=== PATIENT | male | born 1970 | race Caucasian/White ===

== ENCOUNTER 2017-03-16 10:36 | Inpatient (IN) ==
--- NOTE | 2017-03-16 10:59 | Emergency Department Note ---
Disposition Clinical Impression: Tenosynovitis Disposition: Admitted As Inpatient Condition: Good Extremity Problem HPI - General Chief complaint: ED Extremity Problem,Nontraumatic Stated complaint: left hand swelling Time Seen by Provider: 03/16/17 10:54 Source: patient Mode of arrival: private vehicle Limitations: no limitations Nursing Notes Reviewed: Yes Vital Signs Reviewed: Yes - History of Present Illness HPI Narrative: 47-year-old male history of diabetes who presents to the ER with a chief complaint of left hand swelling. Patient reports that he fell one week ago landing on his left shoulder. He states that the pain that resolved but he started noticing pain in his left hand. He states that it started to swell and he was having pain with movement. 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 He denies fevers nausea vomiting diarrhea at home. He is right-hand dominant. Does have pain with any type of motion of the hand. No other complaints. Pt Subjective Complaint: extremity pain, extremity swelling Onset (ago): day(s) Consistency: constant Injury Location: left, upper extremity Pain Scale: 8 Quality: aching Radiation: none Improves with: nothing Worsens with: nothing Associated symptoms: Denies: chest pain, shortness of breath, abdominal pain, fever - Related Data Home Medications Medication Instructions Recorded Confirmed Insulin NPH, HUMAN [HumuLIN N] 30 unit SQ BID 01/04/16 03/16/17 Metformin HCl [Metformin HCl ER] 1,000 mg PO BID 01/04/16 03/16/17 Metoprolol XL (24 HR) Succ [Toprol 75 mg PO DAILY 03/06/16 03/16/17 Xl] Amitriptyline [Elavil] 25 mg PO HS 03/16/17 03/16/17 Meloxicam [Mobic] 7.5 mg PO DAILY 03/16/17 03/16/17 Previous Rx's Medication Instructions Recorded Atorvastatin [Lipitor] 40 mg PO HS #30 tablet 11/10/15 Clopidogrel [Plavix] 75 mg PO DAILY #30 tablet 11/10/15 Furosemide [Lasix] 40 mg PO DAILY #30 tablet 11/10/15 Lisinopril [Zestril] 10 mg PO DAILY #30 tablet 11/10/15 Allergies Allergy/AdvReac Type Severity Reaction Status Date / Time No Known Allergies Allergy Verified 03/16/17 10:39 All systems ED: reviewed and negative except as stated. Constitutional: Denies: fever Respiratory: Denies: cough Gastrointestinal: Denies: vomiting, diarrhea Integumentary: Denies: rash Past Medical History - Past Medical History Attestation: Yes The following information was validated with the patient. Source: patient Medical history: Reports: CHF, COPD, coronary artery disease, diabetes, GERD, hyperlipidemia, myocardial infarction Surgical history: Reports: angioplasty/stent Psychiatric history: Reports: no psych history - Social History Smoking Status: Former smoker Smokeless Tobacco Status: No Alcohol use: Reports: none Drug use: Reports: none Physical Exam - General Limitations: no limitations General appearance: alert, in no apparent distress - Head Head exam: atraumatic, normocephalic, normal inspection - Eye Eye exam: Present: normal appearance, EOMI - ENT ENT exam: normal exam - Neck Neck exam: Present: normal inspection - Chest Chest inspection: Present: normal inspection, symmetric chest wall rise - Respiratory Respiratory exam: Present: normal lung sounds bilaterally - Cardiovascular Cardiovascular exam: Present: regular rate, normal rhythm, normal heart sounds - Abdominal Exam Abdominal exam: Present: soft, Non-Tender. Absent: tenderness - Extremities Exam Extremities exam: Present: normal inspection, full ROM - Expanded Upper Extremity Exam Shoulder exam: Present: normal inspection, full ROM Arm exam: Present: normal inspection, full ROM Elbow exam: Present: normal inspection, full ROM Forearm/Wrist exam: Present: normal inspection, full ROM Hand exam: Present: swelling (There is swelling to the dorsum of the left hand as well as into the digits.), abrasion, other (Diminished range of motion secondary to swelling with flexion and extension of the digits). Absent: ecchymosis, deformity - Expanded Lower Extremity Exam Hip/Pelvis exam: Present: normal inspection, full ROM Upper leg exam: Present: normal inspection, full ROM Knee exam: Present: normal inspection, full ROM Lower leg exam: Present: normal inspection, full ROM Ankle exam: Present: normal inspection, full ROM Foot/toe exam: Present: normal inspection, full ROM Neurovascular/Tendon exam: Absent: motor deficit, sensory deficit Course Course Narrative: Patient seen and examined. Vital signs reviewed. We will check a left hand x- ray as well as basic labs. - Reevaluation(s) Reevaluation #1: Discussed results of imaging labwork with the patient and family. They are in agreement with the plan of being admitted to the hospital. - Consultations Consultation #1: I discussed this case with the on-call orthopedic surgeon. They agree with admitting the patient to the hospital for IV antibiotics and hand consultation in the morning. They request to admit the patient to the hospitalist service. Vital Signs Temperature 98.1 F 03/16/17 10:37 Pulse Rate 115 03/16/17 10:37 Respiratory Rate 16 03/16/17 10:37 Blood Pressure 157/84 03/16/17 10:37 O2 Sat by Pulse Oximetry 95 03/16/17 10:37 Temperature 98.1 F 03/16/17 10:37 Pulse Rate 82 03/16/17 14:00 Respiratory Rate 16 03/16/17 15:16 Blood Pressure 146/84 03/16/17 15:16 O2 Sat by Pulse Oximetry 95 03/16/17 14:00 Oxygen Delivery Oxygen Delivery Room Air Extremity Problem, Nontraumati - MDM Narrative Medical decision making narrative: 47-year-old male presents to the ER for left hand swelling. Reports he fell a week ago and started having pain a few days later. 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 He is unsure of any foreign bodies in his hand. CT scan here shows soft tissue swelling but no abscess collection. He has a slightly elevated ESR and CRP. He holds his hand in slight flexion with pain with passive extension as well as pain over the flexor surfaces. This case was discussed with orthopedic surgery. We will admit to the hospitalist service give him IV vancomycin and Cipro and he will be evaluated by the hand surgeon in the morning. - Lab Data Lab results reviewed: Yes I reviewed the patient's lab results. Result diagrams: 03/16/17 12:17 03/16/17 12:17 Lab Results 03/16/17 03/16/17 03/16/17 Range/Units 12:17 12:17 12:17 WBC 8.5 (4.3-11.1) K/mcL RBC 4.62 (4.19-5.50) M/mcL Hgb 13.9 (12.9-16.9) g/dL Hct 40.9 (37.5-50.1) % MCV 88.5 (83.0-100.0) fL MCH 30.1 (28.0-33.3) pg MCHC 34.0 (31.6-35.5) g/dL RDW 12.5 (11.5-14.5) % Plt Count 187 (140-400) K/mcL MPV 11.7 (9.4-12.4) fL Immature Gran % 0.4 (0-4) % Seg Neutrophils % 74.2 % Lymphocytes % 15.6 % Monocytes % 7.7 % Eosinophils % 1.6 % Basophils % 0.5 % Neutrophils # 6.3 (1.6-8.9) K/mcL Lymphocytes # 1.3 (0.6-4.6) K/mcL Monocytes # 0.7 (0.0-1.3) K/mcL Eosinophils # 0.1 (0.0-0.6) K/mcL Basophils # 0.0 (0.0-0.2) K/mcL ESR 22 H (0-10) mm/hr Sodium 134 L (136-145) mEq/L Potassium 5.2 H (3.5-4.5) mEq/L Chloride 99 (98-109) mEq/L Carbon Dioxide 28 (19-29) mEq/L BUN 22 (8-26) mg/dL Creatinine 1.19 (0.72-1.25) mg/dL Est GFR ( Amer) > 60 (> 60) Est GFR (Non-Af Amer) > 60 (> 60) BUN/Creatinine Ratio 18 (6-26) Glucose 599 H* (70-99) mg/dL Calculated Osmolality 309 H (280-300) Calcium 8.9 (8.6-10.8) mg/dL C-Reactive Protein 33 H (Less than 5) mg/L - Radiology Data Radiology results reviewed: Yes I reviewed the patient's radiology results. Hand X-Ray 03/16/17 10:40 IMPRESSION: Several radiopaque foreign bodies in the soft tissues adjacent to the distal ulna, middle phalanx of the 4th digit and distal phalanx of the 3rd digit best visualized on the oblique view. D/ / Jef Rodriguez MD / Jef Rodriguez MD Interpreting Provider: Jef Rodriguez MD Upper Extremity CT 03/16/17 11:37 IMPRESSION: 1. No acute osseous abnormality identified. 2. Nonspecific subcutaneous edema within the soft tissues of the distal forearm along its ulnar aspect and extending into the dorsal hand. Recommend clinical correlation for cellulitis. No organized fluid collection identified. 3. Radiopaque foreign bodies within the soft tissues of the distal forearm along its ulnar aspect and within the distal soft tissues of both the 3rd and 4th digits. D/ / Silvano Cotter MD / Silvano Cotter MD Interpreting Provider: Silvano Cotter MD Attestation Statement - Attestation Attestation: I, Keith Winn, examined this patient and my medical decision-making was reviewed with the DIRECTOR OF CODING/PA/Advanced Practice Nurse/Resident Physician. I agree with the documented findings, disposition and treatment plan as described except to the extent set forth below. 47-year-old male presents to the emergency department with left hand swelling and pain. 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 Over the past 2-3 days patient's pain in his left hand has become much worse. Patient states he has difficulty with making a fist due to pain. Denies fever, chills, nausea, vomiting. No other injuries to left hand. Denies the past. X- ray of the hand reveals foreign bodies in the third and fourth digits as well as the distal ulna area however patient does not have pain in these areas. Patient has elevation of his ESR and CRP. On physical exam he has pain with passive extension of his second through fifth digits as well as tenderness to palpation of the palmar area. CT of the hand did not reveal evidence of acute abscess. Patient will be admitted to the hospital for further care and evaluation and IV antibiotics. Resident spoke with Dr. Arora Who agreed with plan of action for admission of the hospital and see the hand specialist in the morning
[2017-03-16] MEDS ORDERED: *HR* Morphine 2 MG/ML SYRINGE IVP ONE (11:36)
[2017-03-16 12:30] LABS: Basophils % 0.5 %; Eosinophils # 0.1 K/mcL (0.0-0.6); Eosinophils % 1.6 %; Hematocrit 40.9 % (37.5-50.1); Hemoglobin 13.9 g/dL (12.9-16.9); Immature Granulocytes % 0.4 % (0-4); Lymphocytes # 1.3 K/mcL (0.6-4.6); Lymphocytes % 15.6 %; Mean Corpuscular Hemoglobin 30.1 pg (28.0-33.3); Mean Corpuscular Volume 88.5 fL (83.0-100.0); Mean Platelet Volume 11.7 fL (9.4-12.4); Monocytes # 0.7 K/mcL (0.0-1.3); Monocytes % 7.7 %; Neutrophils # 6.3 K/mcL (1.6-8.9); Platelet Count 187 K/mcL (140-400); Red Blood Count 4.62 M/mcL (4.19-5.50); Red Cell Distribution Width 12.5 % (11.5-14.5); Segmented Neutrophils % 74.2 %
[2017-03-16 12:44] LABS: BUN/Creatinine Ratio 18 (6-26); Blood Urea Nitrogen 22 mg/dL (8-26); C-Reactive Protein 33 mg/L (Less than 5); Calcium 8.9 mg/dL (8.6-10.8); Carbon Dioxide 28 mEq/L (19-29); Chloride 99 mEq/L (98-109); Osmolality,Calculated 309 (280-300); Potassium 5.2 mEq/L (3.5-4.5); Sodium 134 mEq/L (136-145); eGFR For African Americans > 60 (> 60); eGFR For Non-African Americans > 60 (> 60)
[2017-03-16 12:45] LABS: Glucose 599 mg/dL (70-99)
[2017-03-16] MEDS ORDERED: Vancomycin 1,750 MG in D5% in Water 500 ML IVPB ONE (13:51)
[2017-03-16] MEDS ORDERED: Naloxone 0.4 MG/ML INJ IVP PRN (17:35)
[2017-03-16] MEDS ORDERED: Acetaminophen 325 MG TABLET PO PRN (17:35)
[2017-03-16] MEDS ORDERED: *HR* Morphine 2 MG/ML SYRINGE IVP PRN (17:35)
[2017-03-16] MEDS ORDERED: Ondansetron 4 MG/2 ML VIAL IVP PRN (17:35)
[2017-03-16] MEDS ORDERED: Dextrose Gel 15 GM PO PRN ×2 (17:51)
[2017-03-16] MEDS ORDERED: D5% in Water 1,000 ML IVC PRN (17:51)
[2017-03-16] MEDS ORDERED: *HR* Dextrose 50 % in Water (Syg) 50 ML SYRINGE IVP PRN (17:51)
[2017-03-16] MEDS ORDERED: Insulin LISPRO 300 UNITS/3 ML VIAL SQ ONE (18:18)
[2017-03-16] MEDS: Pantoprazole 40 MG VIAL IVP SCH (18:20)
[2017-03-16] MEDS ORDERED: Insulin LISPRO 300 UNITS/3 ML VIAL SQ SCH ×2 (18:30→21:00)
--- NOTE | 2017-03-16 19:14 | Internal Med History&Physical ---
Date of Encounter: 03/16/17 Time of Encounter: 18:00 Assessment and Plan (1) Cellulitis Current visit: Yes Status: Acute Patient presents with acute cellulitis of the left lower arm and hand. Patient reports his hand and arm began to swell following a fall he suffered. CT of the left upper extremity today shows nonspecific subcutaneous edema within the soft tissues of the distal forearm along its ulnar aspect and extending into the dorsal hand recommend clinical correlation for cellulitis. No organized fluid collection identified. Radiopaque foreign bodies present within the soft tissues of the distal forearm along its ulnar aspect and within the distal soft tissues of the third and fourth digits. IV ciprofloxacin and IV vancomycin administered in the ED and will be continued. Tetanus vaccine ordered as patient 's last vaccination was 8 years ago. Orthopedic surgery consult ordered in the ED. Follow-up labs ordered. Will monitor patient for signs of increasing infection and/or sepsis. Qualifiers: Site of cellulitis of extremity: upper extremity Laterality: left Qualified Code(s): L03.114 - Cellulitis of left upper limb (2) Hyperkalemia Current visit: Yes Status: Acute Patient presents with acute hyperkalemia with potassium level of 5.2. IVPB calcium gluconate 1,000 mg and IVP sodium bicarbonate 50 MeQ ordered. Will monitor follow-up labs. (3) Hyponatremia Current visit: Yes Status: Acute Patient presents with acute hyponatremia with sodium level of 134 on admission. Patient to receive 500 mL IV bolus of 0.9 NS and IV NS 0.9 100 mL/HR for correction. Will monitor follow-up labs. (4) GERD (gastroesophageal reflux disease) Current visit: Yes Status: Chronic Patient presents with history of chronic gastroesophageal reflux disease. IVP protonix 40 mg daily ordered. IV Zofran ordered when necessary for nausea. Qualifiers: Esophagitis presence: esophagitis presence not specified Qualified Code(s) : K21.9 - Gastro-esophageal reflux disease without esophagitis (5) HLD (hyperlipidemia) Current visit: Yes Status: Chronic Patient presents with history of chronic hyperlipidemia. Lipid panel ordered. Will continue patient's Lipitor. Qualifiers: Hyperlipidemia type: pure hypercholesterolemia Qualified Code(s): E78.00 - Pure hypercholesterolemia, unspecified; E78.0 - Pure hypercholesterolemia (6) HTN (hypertension) Current visit: Yes Status: Chronic Patient presents with history of chronic hypertension. Will monitor patient's vital signs. Continue patient's metoprolol and lisinopril. Qualifiers: Hypertension type: essential hypertension Qualified Code(s): I10 - Essential (primary) hypertension (7) Diabetes mellitus, type II, insulin dependent Current visit: Yes Status: Chronic Patient presents with history of uncontrolled diabetes with insulin dependency. Patient's blood glucose on admission was 599. Blood glucose ACHS. Will hold patient's metformin and administer medium correction dose sliding scale insulin with hypoglycemic protocol. A1c ordered. (8) CAD (coronary artery disease) Current visit: Yes Status: Chronic Patient presents with history of chronic coronary artery disease. Aspirin therapy. We will continue patient's Plavix, metoprolol, lisinopril, and Lipitor. Qualifiers: Coronary Disease-Associated Artery/Lesion type: unspecified vessel or lesion type [place] vs. transplanted heart: [place] heart Associated angina: angina presence unspecified Qualified Code(s): I25.10 - Atherosclerotic heart disease of [place] coronary artery without angina pectoris (9) CHF (congestive heart failure) Current visit: Yes Status: Chronic Patient presents with history of CHF. Will continue patient's lasix PO. Monitor I&O and daily weight. Qualifiers: Congestive heart failure type: unspecified congestive heart failure type Congestive heart failure chronicity: unspecified congestive heart failure chronicity Qualified Code(s): I50.9 - Heart failure, unspecified (10) DVT prophylaxis Current visit: Yes Status: Acute Patient to be placed on DVT prophylaxis due to current admission protocol and bed rest status. Heparin 5,000 units SQ Q8 ordered. Internal Medicine - H&P: HPI Chief complaint: Swollen left arm and hand Admitted From: Emergency Dept Plans for Post Hospital Care: Home History of present illness: Mr. Vargas is a 47 year old male who presents from the ED with chief complaint of swelling in his left hand and lower left arm. Patient reports that he fell approximately one week ago and landed on his shoulder. He states he had previous shoulder problems but after his fall his shoulder felt like it popped back into place. His left hand became swollen with pain afterwards. 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 He denies recent illness, fever, chills, nausea, vomiting, generalized weakness, headache, changes in vision, dizziness, pre-syncope, or syncope. Mr. Vargas has a medical history that includes CHF, COPD, CAD, diabetes with insulin dependency, GERD, [place] in November 2015 with placement of three stents, hyperlipidemia, and hypertension. CT of the left upper extremity today shows nonspecific subcutaneous edema within the soft tissues of the distal forearm along its ulnar aspect and extending into the dorsal hand recommend clinical correlation for cellulitis. No organized fluid collection identified. Radiopaque foreign bodies present within the soft tissues of the distal forearm along its ulnar aspect and within the distal soft tissues of the third and fourth digits. Patient is at moderate risk for infection based on current symptoms and will be placed as observation status with IV fluids, IV calcium gluconate and sodium bicarbonate to address hyperkalemia, continuation of IV ciprofloxacin and IV vancomycin for infection coverage. Ortho consult placed in ED. Patient to be monitored closely for signs of increasing infection. Time spent with patient > 40 minutes. Past Med Surg Social Fam HX - Past Medical History Source: patient Medical history: CHF, COPD, coronary artery disease, diabetes, GERD, hyperlipidemia, myocardial infarction Psychiatric history: no psych history - Past Surgical History Surgical History: angioplasty/stent - Social History Smoking Status: Former smoker Smokeless Tobacco Status: No Alcohol use: none Drug use: none Current living situation: Home Activity Level: Independent ambulation Recent Out of Country Travel Within the Last 8 Weeks: No Exposure or Possible Exposure to Illness During Travel: No - Family History Father Race: Family Member Ethnicity: Non- Living Status: Age at : 76 Hx Family Cardiac Disorders: Yes (HTN) Hx Family Endocrine Disorder: Yes (DM) Brother Race: Family Member Ethnicity: Non- Living Status: Still Living Hx Family Cardiac Disorders: Yes ([place] Age 50) Hx Family Endocrine Disorder: Yes (DM) Mother Race: Family Member Ethnicity: Non- Living Status: Age at : 69 Cause of : HD Hx Family Cardiac Disorders: Yes (HD) Hx Family Endocrine Disorder: Yes (DM) Sister Race: Family Member Ethnicity: Non- Living Status: Still Living Hx Family Endocrine Disorder: Yes (DM) Internal Medicine - H&P: Meds Atorvastatin [Lipitor] 40 mg PO HS #30 tablet 11/10/15 [Rx] Clopidogrel [Plavix] 75 mg PO DAILY #30 tablet 11/10/15 [Rx] Furosemide [Lasix] 40 mg PO DAILY #30 tablet 11/10/15 [Rx] Lisinopril [Zestril] 10 mg PO DAILY #30 tablet 11/10/15 [Rx] Insulin NPH, HUMAN [HumuLIN N] 30 unit SQ BID 01/04/16 [History] Metformin HCl [Metformin HCl ER] 1,000 mg PO BID 01/04/16 [History] Metoprolol XL (24 HR) Succ [Toprol Xl] 75 mg PO DAILY 03/06/16 [History] Amitriptyline [Elavil] 25 mg PO HS 03/16/17 [History] Meloxicam [Mobic] 7.5 mg PO DAILY 03/16/17 [History] Allergies No Known Allergies Allergy (Verified 03/16/17 10:39) All Systems PM: A 10-system review of systems was performed and is negative for pertinent findings except as documented above in the HPI. - Constitutional Constitutional: no chills, no fever(s), no night sweats - EENT Eyes: no change in vision, no discharge, no pain, no photophobia Ears: no ear discharge, no ear pain, no tinnitus Nose, mouth and throat: no dysphagia, no nasal discharge, no neck pain, no sore throat - Breasts Breasts: as per HPI - Cardiovascular Cardiovascular ROS IM: no chest pain, no diaphoresis, no dyspnea, no lightheadedness, no palpitations, no syncope - Respiratory Respiratory: no cough, no dyspnea, no wheezing, no excessive phlegm production - Gastrointestinal Gastrointestinal: no abdominal pain, no diarrhea, no hematemesis, no hematochezia, no melena, no nausea, no vomiting - Genitourinary Genitourinary ROS male: as per HPI - Musculoskeletal Musculoskeletal ROS IM: no numbness, no tingling - Integumentary Integumentary IM: as per HPI, erythema (Left lower arm and hand), other (Edema of left lower arm and hand) - Neurological Neurological ROS: no confusion, no convulsions, no focal weakness, no numbness, no tingling, no tremor(s) - Psychiatric Psychiatric: as per HPI - Endocrine Endocrine IM: as per HPI - Hematologic/Lymphatic Hematologic/Lymphatic: no easy bruising - Allergic/Immunologic Allergic/Immunologic: as per HPI - Constitutional Vitals: Temp Pulse Resp BP Pulse Ox 98.1 F 78 16 158/84 99 03/16/17 16:24 03/16/17 16:24 03/16/17 16:24 03/16/17 16:24 03/16/17 16:24 General appearance: Present: cooperative, A&O X 3, no acute distress, obese, answers questions appropriately - Head Head exam: Present: atraumatic, normocephalic - Eye Eye exam: Present: PERRL, conjuntiva pink, sclera anicteric Pupils: Present: PERRL - ENT ENT exam: Present: normal exam, normal external ear exam - Neck Neck exam general surgery: Present: supple, trachea midline. Absent: lymphadenopathy - Respiratory Respiratory exam: Present: CTAB. Absent: accessory muscle use, rales, rhonchi, wheezes - Cardiovascular Cardiovascular exam: Present: RRR, +S1, +S2. Absent: diastolic murmur, gallop, rubs, systolic murmur - GI/Abdominal GI/Abdominal exam: Present: normal bowel sounds, soft, no peritoneal signs. Absent: distended, tenderness - Rectal Rectal exam: Present: deferred - Additional comments: exam deferred. - Extremities Exam Extremities exam: Present: warm, radial pulses palpable and symetrical. Absent : calf tenderness, cyanotic, pedal edema - Expanded Upper Extremities Exam Upper Arm exam: Present: erythema (Left lower arm and hand), swelling (Left lower arm and hand) - Back Exam Back exam: Present: normal inspection - Neurological Exam Neurological exam: Present: CN II-XII intact, oriented X3, no focal deficits. Absent: pronater drift, facial droop, speech deficit - Psychiatric Psychiatric exam: Present: normal affect, normal mood - Skin Skin exam: Present: dry, intact Internal Med - H&P Results - Labs CBC & Chem 7: 03/16/17 12:17 03/16/17 12:17 - Diagnostic Studies Other Images Additional comments: Impressions Hand X-Ray 03/16/17 10:40 IMPRESSION: Several radiopaque foreign bodies in the soft tissues adjacent to the distal ulna, middle phalanx of the 4th digit and distal phalanx of the 3rd digit best visualized on the oblique view. D/ / Jef Rodriguez MD / Jef Rodriguez MD Interpreting Provider: Jef Rodriguez MD Upper Extremity CT 03/16/17 11:37 IMPRESSION: 1. No acute osseous abnormality identified. 2. Nonspecific subcutaneous edema within the soft tissues of the distal forearm along its ulnar aspect and extending into the dorsal hand. Recommend clinical correlation for cellulitis. No organized fluid collection identified. 3. Radiopaque foreign bodies within the soft tissues of the distal forearm along its ulnar aspect and within the distal soft tissues of both the 3rd and 4th digits. D/ / Silvano Cotter MD / Silvano Cotter MD Interpreting Provider: Silvano Cotter MD
[2017-03-16] MEDS ORDERED: Calcium Gluconate 2,000 MG in D5% in Water 100 ML IVPB ONE (19:23)
[2017-03-16] MEDS ORDERED: 0.9 % Sodium Chloride 500 ML IVC ONE (19:25)
[2017-03-16] MEDS ORDERED: Td (TENIVAC) Vaccine 0.5 ML VIAL IM ONE (19:28)
[2017-03-16] MEDS ORDERED: Calcium Gluconate 1,000 MG in D5% in Water 100 ML IVPB ONE (19:51)
[2017-03-16] MEDS: *HR* HYDROcodone/Acet 5/325 mg TABLET PO PRN (19:52)
[2017-03-16] MEDS ORDERED: Vancomycin 1,500 MG in D5% in Water 250 ML IVPB SCH (20:00)
[2017-03-16] MEDS ORDERED: 0.9 % Sodium Chloride 1,000 ML IVC ONE (20:05)
--- NOTE | 2017-03-16 20:11 | Event Note ---
Date of Encounter: 03/16/17 Time of Encounter: 20:09 Patient seen and examined with nurse practitioner. He presents with theft and swelling has been doing some work in his yard past week. Start swelling and progressively worse. Questionable cellulitis. We put in empiric antibiotics orthopedic evaluation. No fractures. Tetanus toxoid will be given he received last 8 years ago. So hyperglycemic likely due to concern noncompliance. Resume his home in home insulin and hydrate. Check hemoglobin A-1 C. His hyperkalemia, this will be corrected old lisinopril.
[2017-03-16] MEDS: 0.9 % Sodium Chloride 1,000 ML IVC SCH (20:52)
[2017-03-16] MEDS ORDERED: Insulin NPH 100 UNIT/ML (x5UNIT) SQ SCH (21:00)
[2017-03-16] MEDS: *HR* Heparin 5,000 UNIT/ML VIAL SQ SCH (21:02)
[2017-03-16] MEDS: Insulin NPH 100 UNIT/ML (x5UNIT) SQ SCH (21:02)
[2017-03-16] MEDS: Insulin LISPRO 300 UNITS/3 ML VIAL SQ SCH (21:04)
[2017-03-17] MEDS: Vancomycin 1,500 MG in D5% in Water 250 ML IVPB SCH ×2 (03:20→14:54)
[2017-03-17 04:09] LABS: Basophils % 0.4 %; Eosinophils # 0.2 K/mcL (0.0-0.6); Hematocrit 37.5 % (37.5-50.1); Hemoglobin 12.6 g/dL (12.9-16.9); Immature Granulocytes % 0.4 % (0-4); Lymphocytes # 1.3 K/mcL (0.6-4.6); Lymphocytes % 13.6 %; Mean Corpuscular HGB Conc 33.6 g/dL (31.6-35.5); Mean Corpuscular Volume 89.3 fL (83.0-100.0); Mean Platelet Volume 11.6 fL (9.4-12.4); Monocytes # 0.7 K/mcL (0.0-1.3); Monocytes % 6.7 %; Neutrophils # 7.4 K/mcL (1.6-8.9); Platelet Count 166 K/mcL (140-400); Red Cell Distribution Width 12.5 % (11.5-14.5); Segmented Neutrophils % 76.9 %
[2017-03-17 04:16] LABS: Prothrombin Time 10.2 Seconds (9.4-12.1)
[2017-03-17 04:37] LABS: BUN/Creatinine Ratio 21 (6-26); Blood Urea Nitrogen 17 mg/dL (8-26); Calcium 8.5 mg/dL (8.6-10.8); Carbon Dioxide 31 mEq/L (19-29); Chloride 104 mEq/L (98-109); Chol/HDL Ratio 3.5 (0-4.9); Cholesterol 97 mg/dL (< 200); Glucose 145 mg/dL (70-99); HDL Cholesterol 28 mg/dL (40-59); LDL Cholesterol,Calculated 42 mg/dL (0-99); Magnesium 1.8 mg/dL (1.6-2.6); Osmolality,Calculated 294 (280-300); Sodium 140 mEq/L (136-145); Triglycerides 137 mg/dL (< 150); eGFR For African Americans > 60 (> 60); eGFR For Non-African Americans > 60 (> 60)
[2017-03-17 04:38] LABS: Potassium 3.6 mEq/L (3.5-4.5)
[2017-03-17] MEDS: *HR* Heparin 5,000 UNIT/ML VIAL SQ SCH ×3 (05:48→21:15)
[2017-03-17] MEDS: Pantoprazole 40 MG VIAL IVP SCH (08:59)
[2017-03-17] MEDS: Insulin LISPRO 300 UNITS/3 ML VIAL SQ SCH ×4 (09:00→21:10)
[2017-03-17] MEDS: Furosemide 40 MG TABLET PO SCH (09:00)
[2017-03-17] MEDS: Aspirin Enteric Coated 81 MG Tablet PO SCH (09:00)
[2017-03-17] MEDS: Metoprolol XL (24 HR) Succ 50 MG TAB.ER.24H PO SCH (09:00)
[2017-03-17] MEDS: Insulin NPH 100 UNIT/ML (x5UNIT) SQ SCH ×2 (09:08→21:09)
[2017-03-17] MEDS: *HR* HYDROcodone/Acet 5/325 mg TABLET PO PRN ×3 (09:12→19:42)
[2017-03-17 12:25] LABS: Amphetamine Screen,Urine Negative ng/mL (Cutoff=1000); Barbiturate Screen,Urine Negative ng/mL (Cutoff=200); Benzodiazepines Screen,Urine Negative ng/mL (Cutoff=200); Cannabinoid Screen,Urine Negative ng/mL (Cutoff = 50); Cocaine Screen,Urine Negative ng/mL (Cutoff= 300); Opiate Screen,Urine Positive ng/mL (Cutoff=300); Phencyclidine Screen,Urine Negative ng/mL (Cutoff=25)
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
[2017-03-17] MEDS: 0.9 % Sodium Chloride 1,000 ML IVC SCH ×2 (19:32→19:41)
[2017-03-18] MEDS: 0.9 % Sodium Chloride 1,000 ML IVC SCH ×3 (00:19→23:51)
[2017-03-18] MEDS: Vancomycin 1,500 MG in D5% in Water 250 ML IVPB SCH ×2 (03:14→15:54)
[2017-03-18 04:21] LABS: Basophils # 0.1 K/mcL (0.0-0.2); Basophils % 0.6 %; Eosinophils # 0.2 K/mcL (0.0-0.6); Eosinophils % 2.1 %; Hematocrit 40.5 % (37.5-50.1); Hemoglobin 13.7 g/dL (12.9-16.9); Immature Granulocytes % 0.6 % (0-4); Lymphocytes # 1.4 K/mcL (0.6-4.6); Lymphocytes % 15.7 %; Mean Corpuscular HGB Conc 33.8 g/dL (31.6-35.5); Mean Corpuscular Volume 88.6 fL (83.0-100.0); Mean Platelet Volume 11.7 fL (9.4-12.4); Monocytes # 0.7 K/mcL (0.0-1.3); Monocytes % 7.8 %; Neutrophils # 6.4 K/mcL (1.6-8.9); Platelet Count 170 K/mcL (140-400); Red Blood Count 4.57 M/mcL (4.19-5.50); Red Cell Distribution Width 12.4 % (11.5-14.5); Segmented Neutrophils % 73.2 %
[2017-03-18 04:32] LABS: BUN/Creatinine Ratio 16 (6-26); Blood Urea Nitrogen 13 mg/dL (8-26); Calcium 8.7 mg/dL (8.6-10.8); Carbon Dioxide 27 mEq/L (19-29); Chloride 103 mEq/L (98-109); Glucose 163 mg/dL (70-99); Osmolality,Calculated 292 (280-300); Potassium 3.4 mEq/L (3.5-4.5); Sodium 139 mEq/L (136-145); eGFR For African Americans > 60 (> 60); eGFR For Non-African Americans > 60 (> 60)
[2017-03-18] MEDS: *HR* Heparin 5,000 UNIT/ML VIAL SQ SCH ×3 (05:56→22:14)
[2017-03-18] MEDS: Furosemide 40 MG TABLET PO SCH (09:02)
[2017-03-18] MEDS: Metoprolol XL (24 HR) Succ 50 MG TAB.ER.24H PO SCH (09:02)
[2017-03-18] MEDS: Aspirin Enteric Coated 81 MG Tablet PO SCH (09:03)
[2017-03-18] MEDS: predniSONE 20 MG TABLET PO SCH (09:03)
[2017-03-18] MEDS: Pantoprazole 40 MG VIAL IVP SCH (09:03)
[2017-03-18] MEDS: Insulin NPH 100 UNIT/ML (x5UNIT) SQ SCH ×2 (09:03→22:14)
[2017-03-18] MEDS: Insulin LISPRO 300 UNITS/3 ML VIAL SQ SCH ×4 (09:04→23:49)
--- NOTE | 2017-03-18 17:44 | Orthopedics Progress Note ---
Date of Encounter: 03/18/17 Time of Encounter: 17:41 - Assessment and Plan (1) Left hand pain Current Visit: Yes Status: Acute Unclear as to etiology. Pt is starting to respond to either IV abx or steroids. I would continue current course of action. Pt ecouraged to continue ROM exercises and elevate hand above heart level. Will f/u tomorrow. Subjective Principal diagnosis: Left hand swelling and pain Interval history: Pt continues on IV abx, also received a dose of prednisone this am. He states the swelling has come down significantly but his hand is still painful. He was seen by OT and left exercises to do. He states he is still unable to fully close his left hand. His left shoulder pain has resolved, which he initially had after the fall. Pt states he fell and landed on his shoulder, and denies hitting his hand. PE: LUE: echymmotic apearance of mid palm, no erythema on dorsum, no streaking, mild swelling of dorsum and palmar surface; digits are not swollen. Scabs and multiple scrapes on forearm. No warmth to touch. Compartments are soft. no crepitus or fluctuance. No tenderness to light touch, no tenderness to deep palpation on dorsum but very tender at mid palm where palm is less soft. Digital mtion limited by pain, but able to actively initiate flexio of all digits. No pain with passive stretch. Sensation intact at digits with good cap refill. FROM of wrist that's pain free. Objective Vital signs: Vital Signs Temp Pulse Resp BP Pulse Ox 03/18/17 14:41 98.9 F 80 16 170/85 96 03/18/17 10:52 98.1 F 74 16 156/83 95 Intake and Output 03/18/17 03/18/17 03/18/17 07:59 15:59 23:59 Intake Total 1480 / 1480 Balance 1480 / 1480 Intake: IV Fluids 1000 / 1000 0.9 % Sodium Chloride 1, 1000 / 1000 000 ML @ 100 mls/hr IVC . Q10H JORDY Rx#:[id number] Oral 480 / 480 Other: Meal Lunch Percent of Meal Consumed 100% # Voids 2 Blood Glucose* 394 367 - Labs CBC & BMP: 03/18/17 03:54 03/18/17 03:54 Labs: Abnormal lab results ESR 22 mm/hr (0-10) H 03/16/17 12:17 Potassium 3.4 mEq/L (3.5-4.5) L 03/18/17 03:54 Glucose 163 mg/dL (70-99) H 03/18/17 03:54 POC Glucose 394 (58-89) H 03/18/17 10:56 Hemoglobin A1c 12.0 % (-5.6) H 03/17/17 03:42 C-Reactive Protein 33 mg/L (Less than 5) H 03/16/17 12:17 HDL Cholesterol 28 mg/dL (40-59) L 03/17/17 03:42 Urine Opiates Screen Positive ng/mL (Fvphzg=003) H 03/17/17 11:39 Consult Discharge Plan - Plan Referrals: Babak Lamas DO [Resident] - 03/28/17 4:00 pm
--- NOTE | 2017-03-18 18:33 | Internal Med Progress Note ---
Date of Encounter: 03/18/17 Time of Encounter: 14:30 - Assessment and plan (1) Cellulitis Current Visit: Yes Status: Acute Assessment and plan: Patient with continued left hand swelling, pain, limited range of motion though improved from yesterday. Continue IV ciprofloxacin and vancomycin. Erythema and edema have improved according to the patient and his . No leukocytosis. Vital signs are stable. No red streaking present. Patient and his are concerned as on Friday, patient had a bump in the middle of his palm and then they stated that Friday, he started with swelling. They are concerned for possible foreign body to his palmar surface. Orthopedics are on board, appreciate recommendations. We will continue antibiotics and steroids as the patient is clinically improving. Continue elevation of his hand above heart level and range of motion exercises. Capillary refill brisk to all fingers, radial pulse strong. ITS Impressions Hand X-Ray 03/16/17 10:40 IMPRESSION: Several radiopaque foreign bodies in the soft tissues adjacent to the distal ulna, middle phalanx of the 4th digit and distal phalanx of the 3rd digit best visualized on the oblique view. D/ / Jef Rodriguez MD / Jef Rodriguez MD Interpreting Provider: Jef Rodriguez MD Upper Extremity CT 03/16/17 11:37 IMPRESSION: 1. No acute osseous abnormality identified. 2. Nonspecific subcutaneous edema within the soft tissues of the distal forearm along its ulnar aspect and extending into the dorsal hand. Recommend clinical correlation for cellulitis. No organized fluid collection identified. 3. Radiopaque foreign bodies within the soft tissues of the distal forearm along its ulnar aspect and within the distal soft tissues of both the 3rd and 4th digits. D/ / Silvano Cotter MD / Silvano Cotter MD Interpreting Provider: Silvano Cotter MD Qualifiers: Site of cellulitis of extremity: upper extremity Laterality: left Qualified Code(s): L03.114 - Cellulitis of left upper limb (2) Left hand pain Current Visit: Yes Status: Acute Assessment and plan: Plan as above. Analgesic pain medication as needed. (3) Diabetes mellitus, type II, insulin dependent Current Visit: Yes Status: Chronic Assessment and plan: Uncontrolled with an A1c of 12.0%. Remained uncontrolled since admission, basal and sliding scale dosages increased. Patient has a lengthy history of noncompliance to dietary or medications, referral to early childhood educator aide outpatient. (4) Hyperkalemia Current Visit: Yes Status: Resolved (5) GERD (gastroesophageal reflux disease) Current Visit: Yes Status: Chronic Assessment and plan: Denies current symptoms Qualifiers: Esophagitis presence: esophagitis presence not specified Qualified Code(s) : K21.9 - Gastro-esophageal reflux disease without esophagitis (6) HLD (hyperlipidemia) Current Visit: Yes Status: Chronic Assessment and plan: Lipid panel normal, continue statin. Low-cholesterol diet. Qualifiers: Hyperlipidemia type: pure hypercholesterolemia Qualified Code(s): E78.00 - Pure hypercholesterolemia, unspecified; E78.0 - Pure hypercholesterolemia (7) HTN (hypertension) Current Visit: Yes Status: Chronic Assessment and plan: Uncontrolled. At home, patient is on Toprol 75 mg daily, lisinopril 10 mg daily , furosemide 40 mg daily. For some reason, the patient's lisinopril was discontinued, renal functioning normal, will continue and monitor. Continue to address this pain as well as this could be contributing. Qualifiers: Hypertension type: essential hypertension Qualified Code(s): I10 - Essential (primary) hypertension (8) CAD (coronary artery disease) Current Visit: Yes Status: Chronic Assessment and plan: Patient denies chest pain. Continue aspirin, Lipitor, Plavix, beta shira. Qualifiers: Coronary Disease-Associated Artery/Lesion type: unspecified vessel or lesion type [place] vs. transplanted heart: [place] heart Associated angina: angina presence unspecified Qualified Code(s): I25.10 - Atherosclerotic heart disease of [place] coronary artery without angina pectoris (9) CHF (congestive heart failure) Current Visit: Yes Status: Chronic Assessment and plan: No acute exacerbation. Chronic diastolic heart failure. Echocardiogram from July 2016 revealed ejection fraction of 55% with mild diastolic dysfunction. Home furosemide has been continued, euvolemic on examination. Denies shortness of breath. (10) Hyponatremia Current Visit: Yes Status: Resolved (11) DVT prophylaxis Current Visit: Yes Status: Acute Assessment and plan: Subcutaneous heparin - Subjective Interval history: Patient seen and examined. On examination, patient sitting upright in bed conversing with his . Patient stating that his pain is currently controlled. His states that swelling had gone down this morning but has slowly started to swell again throughout the course of today. Patient stating overall, he is feeling better but states his hand is extremely tender. - Constitutional Vitals: Temp Pulse Resp BP Pulse Ox 98.9 F 80 16 170/85 96 03/18/17 14:41 03/18/17 14:41 03/18/17 14:41 03/18/17 14:41 03/18/17 14:41 General appearance: Present: cooperative, A&O X 3, pleasant, no acute distress, obese, answers questions appropriately - Head Head exam: Present: atraumatic, normocephalic - Eye Eye exam: Present: PERRL, conjuntiva pink, sclera anicteric Pupils: Present: PERRL - Neck Neck exam general surgery: Present: supple, trachea midline. Absent: lymphadenopathy - Respiratory Respiratory exam: Present: CTAB. Absent: accessory muscle use, rales, respiratory distress, rhonchi, wheezes - Cardiovascular Cardiovascular exam: Present: RRR, +S1, +S2. Absent: diastolic murmur, gallop, rubs, systolic murmur - GI/Abdominal GI/Abdominal exam: Present: distended, normal bowel sounds, soft, no peritoneal signs. Absent: tenderness - Extremities Exam Extremities exam: Present: warm, radial pulses palpable and symmetrical. Absent : calf tenderness, cyanotic, pedal edema - Expanded Upper Extremities Exam Hand wrist exam: Present: erythema, swelling, tenderness. Absent: full ROM, normal inspection Vascular exam: Present: normal capillary refill. Absent: vascular compromise - Neurological Exam Neurological exam: Present: alert, CN II-XII intact, oriented X3, no focal deficits. Absent: pronater drift, facial droop, speech deficit - Skin Skin exam: Present: dry, intact, normal color, warm Internal Medicine: Result - Labs CBC & Chem 7: 03/18/17 03:54 03/18/17 03:54 - ABG Interpretation ABG results: PT/INR, D-dimer PT 10.2 Seconds (9.4-12.1) 03/17/17 03:42 Consult Discharge Plan - Plan Referrals: Babak Lamas DO [Resident] - 03/28/17 4:00 pm
[2017-03-19] MEDS: Vancomycin 1,500 MG in D5% in Water 250 ML IVPB SCH (03:29)
[2017-03-19 05:16] LABS: BUN/Creatinine Ratio 17 (6-26); Blood Urea Nitrogen 13 mg/dL (8-26); Calcium 8.3 mg/dL (8.6-10.8); Carbon Dioxide 28 mEq/L (19-29); Chloride 105 mEq/L (98-109); Glucose 229 mg/dL (70-99); Osmolality,Calculated 297 (280-300); Potassium 3.2 mEq/L (3.5-4.5); Sodium 140 mEq/L (136-145); eGFR For African Americans > 60 (> 60); eGFR For Non-African Americans > 60 (> 60)
[2017-03-19 05:18] LABS: Basophils % 0.4 %; Eosinophils # 0.1 K/mcL (0.0-0.6); Eosinophils % 0.6 %; Hematocrit 36.6 % (37.5-50.1); Hemoglobin 12.6 g/dL (12.9-16.9); Lymphocytes # 1.8 K/mcL (0.6-4.6); Lymphocytes % 19.1 %; Mean Corpuscular HGB Conc 34.4 g/dL (31.6-35.5); Mean Corpuscular Hemoglobin 30.1 pg (28.0-33.3); Mean Corpuscular Volume 87.4 fL (83.0-100.0); Mean Platelet Volume 12.1 fL (9.4-12.4); Monocytes # 0.9 K/mcL (0.0-1.3); Monocytes % 9.4 %; Neutrophils # 6.5 K/mcL (1.6-8.9); Platelet Count 194 K/mcL (140-400); Red Blood Count 4.19 M/mcL (4.19-5.50); Red Cell Distribution Width 12.3 % (11.5-14.5); Segmented Neutrophils % 69.5 %
[2017-03-19] MEDS: *HR* Heparin 5,000 UNIT/ML VIAL SQ SCH (06:05)
[2017-03-19] MEDS: Metoprolol XL (24 HR) Succ 50 MG TAB.ER.24H PO SCH (09:15)
[2017-03-19] MEDS: predniSONE 20 MG TABLET PO SCH (09:15)
[2017-03-19] MEDS: Aspirin Enteric Coated 81 MG Tablet PO SCH (09:15)
[2017-03-19] MEDS: Furosemide 40 MG TABLET PO SCH (09:15)
[2017-03-19] MEDS: Insulin NPH 100 UNIT/ML (x5UNIT) SQ SCH (09:15)
[2017-03-19] MEDS: Pantoprazole 40 MG VIAL IVP SCH (09:15)
[2017-03-19] MEDS: Insulin LISPRO 300 UNITS/3 ML VIAL SQ SCH ×2 (09:16→13:11)
--- NOTE | 2017-03-19 13:18 | Orthopedics Progress Note ---
Date of Encounter: 03/19/17 Time of Encounter: 12:15 - Assessment and Plan (1) Left hand pain Current Visit: Yes Status: Acute Still unclear etiology other than initial injury to shoulder. Swelling and ROM of hand have improved after addition of prednisone however, blood glucose elevated. Patient admits to uncontrolled numbers for the past year and range anywhere from 180-400s on a regular basis. Recommend continuing prednisone upon discharge with close monitoring of his blood glucose levels. Continue hand therapy and elevation of hand. Can follow up with PCP or sport medicine on outpatient basis. Subjective Principal diagnosis: Left hand swelling and pain Interval history: Patient doing well with no concerns. No events overnight. States swelling and motion improved over last 2 days. Denies any new pain or numbness. Objective Vital signs: Vital Signs Temp Pulse Resp BP Pulse Ox 03/19/17 10:41 97.5 F L 72 16 164/87 95 03/19/17 07:02 98.1 F 75 16 152/90 97 03/18/17 22:38 98.3 F 88 14 136/75 95 03/18/17 19:04 98.6 F 87 16 169/89 93 03/18/17 14:41 98.9 F 80 16 170/85 96 Intake and Output 03/18/17 03/19/17 03/19/17 23:59 07:59 15:59 Intake Total 1450 / 1450 360 / 360 Balance 1450 / 1450 360 / 360 Intake: IV Fluids 1450 / 1450 0.9 % Sodium Chloride 1, 1000 / 1000 000 ML @ 100 mls/hr IVC . Q10H JORDY Rx#:[id number] Cipro Premix 400 MG/200 200 / 200 ML 400 mg In 200 ml @ 200 mls/hr IVPB Q12H JORDY Rx# :[id number] Vancocin 1,500 MG In 250 / 250 Dextrose 5% 250 ML @ 166. 667 mls/hr IVPB Q12H JORDY Rx#:[id number] Oral 360 / 360 Other: Meal Breakfast Percent of Meal Consumed 100% Blood Glucose* 368 484 - Labs CBC & BMP: 03/19/17 04:17 03/19/17 04:17 Labs: Abnormal lab results Hgb 12.6 g/dL (12.9-16.9) L 03/19/17 04:17 Hct 36.6 % (37.5-50.1) L 03/19/17 04:17 ESR 18 mm/hr (0-10) H 03/19/17 04:17 Potassium 3.2 mEq/L (3.5-4.5) L 03/19/17 04:17 Glucose 229 mg/dL (70-99) H 03/19/17 04:17 POC Glucose 368 (58-89) H 03/18/17 22:38 Hemoglobin A1c 12.0 % (-5.6) H 03/17/17 03:42 Calcium 8.3 mg/dL (8.6-10.8) L 03/19/17 04:17 C-Reactive Protein 16 mg/L (Less than 5) H 03/19/17 04:17 HDL Cholesterol 28 mg/dL (40-59) L 03/17/17 03:42 Urine Opiates Screen Positive ng/mL (Viupip=924) H 03/17/17 11:39 Consult Discharge Plan - Plan Referrals: Babak Lamas DO [Resident] - 03/28/17 4:00 pm
[2017-03-19] MEDS ORDERED: Insulin LISPRO 300 UNITS/3 ML VIAL SQ ONE (15:59)
[2017-03-19 16:02] VITALS: BP 159/89
--- NOTE | 2017-03-19 18:39 | Discharge Summary ---
Date of Encounter: 03/19/17 Time of Encounter: 18:00 - Discharge Diagnosis (1) Cellulitis Priority: Primary Status: Acute Comments: much improved during admission. followup outpatient with PCP or sports medicine if indicated Qualifiers: Site of cellulitis of extremity: upper extremity Laterality: left Qualified Code(s): L03.114 - Cellulitis of left upper limb (2) Left hand pain Priority: Primary Status: Acute (3) Diabetes mellitus, type II, insulin dependent Priority: Secondary Status: Chronic Comments: Uncontrolled with an A1c of 12.0%. Remained uncontrolled since admission, basal and sliding scale dosages increased. Patient has a lengthy history of noncompliance to dietary or medications, referral to health promotion educator outpatient. (4) Hyperkalemia Priority: Primary Status: Resolved (5) GERD (gastroesophageal reflux disease) Priority: Secondary Status: Chronic Comments: denied current symptoms Qualifiers: Esophagitis presence: esophagitis presence not specified Qualified Code(s) : K21.9 - Gastro-esophageal reflux disease without esophagitis (6) HLD (hyperlipidemia) Priority: Secondary Status: Chronic Comments: Lipid panel normal, continue statin. Low-cholesterol diet. Qualifiers: Hyperlipidemia type: pure hypercholesterolemia Qualified Code(s): E78.00 - Pure hypercholesterolemia, unspecified; E78.0 - Pure hypercholesterolemia (7) HTN (hypertension) Priority: Secondary Status: Chronic Comments: Uncontrolled. At home, patient is on Toprol 75 mg daily, lisinopril 10 mg daily , furosemide 40 mg daily. For some reason, the patient's lisinopril was discontinued, renal functioning normal, so this was continued. borderline hypertensive at time of discharge however the patient was stating that he was anxious to go home. Will not make changes to his medications at this time and have him check his blood pressure daily at home Qualifiers: Hypertension type: essential hypertension Qualified Code(s): I10 - Essential (primary) hypertension (8) CAD (coronary artery disease) Priority: Secondary Status: Chronic Comments: Patient denied chest pain while admitted. Continue aspirin, Lipitor, Plavix, beta shira. Qualifiers: Coronary Disease-Associated Artery/Lesion type: unspecified vessel or lesion type [place] vs. transplanted heart: [place] heart Associated angina: angina presence unspecified Qualified Code(s): I25.10 - Atherosclerotic heart disease of [place] coronary artery without angina pectoris (9) CHF (congestive heart failure) Priority: Secondary Status: Chronic Comments: No acute exacerbation. Chronic diastolic heart failure. Echocardiogram from July 2016 revealed ejection fraction of 55% with mild diastolic dysfunction. Home furosemide continued, euvolemic on examination. Denied shortness of breath. (10) Hyponatremia Priority: Primary Status: Resolved (11) DVT prophylaxis Priority: Primary Status: Acute Comments: Subcutaneous heparin while admitted - Discharge Medications Prescriptions: Doxycycline 100 mg PO BID #20 capsule HYDROcodone/Acet 5/325 mg [[place] 5-325 mg] 1 tab PO Q6H PRN #12 tab PRN Reason: Pain predniSONE [PredniSONE] 40 mg PO DAILY #8 tab Home Medications: Atorvastatin [Lipitor] 40 mg PO HS #30 tablet 11/10/15 [Rx] Clopidogrel [Plavix] 75 mg PO DAILY #30 tablet 11/10/15 [Rx] Furosemide [Lasix] 40 mg PO DAILY #30 tablet 11/10/15 [Rx] Lisinopril [Zestril] 10 mg PO DAILY #30 tablet 11/10/15 [Rx] Insulin NPH, HUMAN [HumuLIN N] 30 unit SQ BID 01/04/16 [History] Metformin HCl [Metformin HCl ER] 1,000 mg PO BID 01/04/16 [History] Metoprolol XL (24 HR) Succ [Toprol Xl] 75 mg PO DAILY 03/06/16 [History] Amitriptyline [Elavil] 25 mg PO HS 03/16/17 [History] Meloxicam [Mobic] 7.5 mg PO DAILY 03/16/17 [History] Doxycycline 100 mg PO BID #20 capsule 03/19/17 [Rx] HYDROcodone/Acet 5/325 mg [[place] 5-325 mg] 1 tab PO Q6H PRN #12 tab 03/19/17 [Rx ] predniSONE [PredniSONE] 40 mg PO DAILY #8 tab 03/19/17 [Rx] Allergies/Adverse Reactions: Allergies No Known Allergies Allergy (Verified 03/16/17 10:39) Date of admission: 03/18/17 09:12 Primary care physician: PCP NONE Consults: 03/19/17 08:59 Consult to Event Mgr [CONS] Routine Reason for SW Consult: insurance? self pay? Discharging clinician: Jyoti Perry Anticipated date of discharge: 03/19/17 - Patient Status Disposition: Home, Self-Care Condition: Good Functional capacity at discharge: independent ambulation Overall status at discharge: patient is back to baseline - Discharge Instructions Follow Up With: Babak Lamas DO [Resident] - 03/28/17 4:00 pm Additional Instructions: Follow-up with primary care provider as scheduled, increase insulin as directed while you are on your prednisone. - Diet and Activity Activity: increase activity as tolerated Diet: diabetic diet, low fat, low cholesterol, low salt diet Hospital course: Mr. Vargas is a 47 year old male with past medical history of CHF, COPD, CAD status post stent, uncontrolled diabetes with A1c of 12%, GERD, hyperlipidemia. Patient presented to the emergency department chief complaint of swelling in his left hand and lower left arm. Patient stating he fell one week prior to presentation and landed on his shoulder. He states after his fall, is full shoulder felt like it popped back into place. His left hand becomes swollen with pain several days after this fall. 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 He denied recent illness , fever, chills, nausea vomiting, headache, syncope. 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 CT of his left upper extremity consistent with cellulitis without fluid collection. Patient was admitted to the hospitalist service for further evaluation and management. Orthopedics was brought on board and the patient was treated with ciprofloxacin and vancomycin while admitted. He was admitted and observed over the course of 3 nights and his edema and pain lessened greatly. He was cleared for outpatient follow-up per orthopedics. Vital signs remained stable, no leukocytosis. Glucose was difficult to control as he was getting steroids but he states that his sugar is uncontrolled at home-A1c 12%. He was instructed to increase his insulin over the next couple days when he finishes his 5 day prednisone course. He was sent home on doxycycline for adequate staph coverage. Of note, physical therapy recommended outpatient physical therapy-this will need to be set up by his primary care provider. He was discharged home in stable condition with close outpatient follow-up recommended. ITS Impressions Hand X-Ray 03/16/17 10:40 IMPRESSION: Several radiopaque foreign bodies in the soft tissues adjacent to the distal ulna, middle phalanx of the 4th digit and distal phalanx of the 3rd digit best visualized on the oblique view. D/ / Jef Rodriguez MD / Jef Rodriguez MD Interpreting Provider: Jef Rodriguez MD Upper Extremity CT 03/16/17 11:37 IMPRESSION: 1. No acute osseous abnormality identified. 2. Nonspecific subcutaneous edema within the soft tissues of the distal forearm along its ulnar aspect and extending into the dorsal hand. Recommend clinical correlation for cellulitis. No organized fluid collection identified. 3. Radiopaque foreign bodies within the soft tissues of the distal forearm along its ulnar aspect and within the distal soft tissues of both the 3rd and 4th digits. D/ / Silvano Cotter MD / Silvano Cotter MD Interpreting Provider: Silvano Cotter MD - Time Spent with Patient Total time spent providing and/or coordinating discharge services: - Constitutional Vitals: Temp Pulse Resp BP Pulse Ox 98.0 F 81 16 159/89 96 03/19/17 15:46 03/19/17 15:46 03/19/17 15:46 03/19/17 15:46 03/19/17 15:46 General appearance: Present: cooperative, A&O X 3, pleasant, no acute distress, obese, answers questions appropriately - Head Head exam: Present: atraumatic, normocephalic - Eye Eye exam: Present: PERRL, conjuntiva pink, sclera anicteric Pupils: Present: PERRL - Neck Neck exam general surgery: Present: supple, trachea midline. Absent: lymphadenopathy - Respiratory Respiratory exam: Present: CTAB. Absent: accessory muscle use, rales, rhonchi, wheezes - Cardiovascular Cardiovascular exam: Present: RRR, +S1, +S2. Absent: diastolic murmur, gallop, rubs, systolic murmur - GI/Abdominal GI/Abdominal exam: Present: normal bowel sounds, soft, no peritoneal signs. Absent: distended, tenderness - Extremities Exam Extremities exam: Present: warm, radial pulses palpable and symmetrical. Absent : calf tenderness, cyanotic, pedal edema - Expanded Upper Extremities Exam Forearm wrist exam: Present: erythema, swelling, tenderness Hand wrist exam: Present: erythema (improved), swelling, tenderness Vascular exam: Present: normal capillary refill, radial pulse right. Absent: vascular compromise - Neurological Exam Neurological exam: Present: alert, CN II-XII intact, normal gait, oriented X3, no focal deficits, strengths equal and symetr throughout. Absent: pronater drift, facial droop, speech deficit - Skin Skin exam: Present: dry, intact, normal color, warm
[2017-03-19] MEDS ORDERED: Aminoglycoside Consult 1 EACH MC ONE (19:20)
== END 2017-03-19 19:21 | disposition home or self-care (01) | DRG 603 ==
LOC: 3BNU 10:36 → EMEROO 10:36 → SUATTDRO 14:48 → 3BNU 15:28
PROVIDERS: ADMIT Nurse Practitioner Family; ATTEND Nurse Practitioner Family

== ENCOUNTER 2017-12-17 19:45 | Inpatient (IN) ==
[2017-12-17] MEDS ORDERED: 0.9 % Sodium Chloride 1,000 ML IVC ONE ×2 (20:06→22:13)
[2017-12-17] MEDS ORDERED: Piperacillin/Tazobactam 3.375 GM in 0.9 % Sodium Chloride Mini Bag 100 ML IVPB ONE (20:06)
--- NOTE | 2017-12-17 20:10 | Emergency Department Note ---
Disposition Clinical Impression: Lower extremity edema, Cellulitis and abscess of left leg, Diabetes mellitus, type II, insulin dependent, RANDY (acute kidney injury) Disposition: Admitted As Inpatient Condition: Fair General Adult HPI - General Chief complaint: ED Extremity Problem,Nontraumatic Stated complaint: Left leg pain Time Seen by Provider: 12/17/17 20:06 Source: patient Limitations: no limitations Nursing Notes Reviewed: Yes Vital Signs Reviewed: Yes - History of Present Illness Pain Scale: 8 - Related Data Home Medications Medication Instructions Recorded Confirmed Metformin HCl [Metformin HCl ER] 1,000 mg PO BID 01/04/16 12/17/17 Amitriptyline [Elavil] 25 mg PO HS 03/16/17 12/17/17 Aspirin [Lo-Dose Aspirin EC] 81 mg PO DAILY 12/17/17 12/17/17 Insulin NPH Human Isophane 15 unit SQ BID 12/17/17 12/17/17 [Novolin N] Lovastatin [Mevacor] 40 mg PO HS 12/17/17 12/17/17 Metoprolol Tartrate [Lopressor] 50 mg PO BID 12/17/17 12/17/17 Previous Rx's Medication Instructions Recorded Furosemide [Lasix] 40 mg PO DAILY #30 tablet 11/10/15 Lisinopril [Zestril] 10 mg PO DAILY #30 tablet 11/10/15 Allergies Allergy/AdvReac Type Severity Reaction Status Date / Time No Known Allergies Allergy Verified 12/17/17 21:55 Past Medical History - Past Medical History Medical history: Reports: CHF, COPD, coronary artery disease, diabetes, GERD, hyperlipidemia, myocardial infarction Surgical history: Reports: angioplasty/stent Psychiatric history: Reports: no psych history - Social History Smoking Status: Former smoker Smokeless Tobacco Status: No Alcohol use: Reports: none Drug use: Reports: none Physical Exam - General Limitations: no limitations General appearance: alert, in no apparent distress Course Vital Signs Temperature 100.0 F H 12/17/17 19:51 Pulse Rate 110 12/17/17 19:51 Respiratory Rate 18 12/17/17 19:51 Blood Pressure 92/58 12/17/17 19:51 O2 Sat by Pulse Oximetry 97 12/17/17 19:51 Temperature 99.4 F 12/17/17 23:57 Pulse Rate 95 12/17/17 23:57 Respiratory Rate 18 12/17/17 23:57 Blood Pressure 120/79 12/17/17 23:57 O2 Sat by Pulse Oximetry 99 12/17/17 23:57 Oxygen Delivery Oxygen Delivery Room Air Medical Decision Making - MDM Narrative Medical decision making narrative: This documentation is done with the assistance of Dragon dictation. Despite efforts made to ensure accuracy, there may be inaccuracies in diagnostic cardiac sonographer or spelling and typographical errors. Patient seen for redness and swelling onto his left foot. Stepped on a nail about a week ago. He has been on antibiotics which looks like probably Bactrim and another antibiotic which is unknown. Despite that he still getting some redness there is getting some drainage from the foot and some swelling. He did have his tetanus updated. Renalin go ahead and image this area get labs determine IV antibiotics and he will need admission. 2055 hrs.: Lab called with a blood glucose greater than 600 he is not acidotic he is lactate is normal his white count 20,000 he started on IV antibiotics started him on insulin here. Waiting on imaging. Foot CT 12/17/17 20:57 IMPRESSION: 1. Findings above most likely representing a severe cellulitis of the left lower leg, left foot, and left ankle without a discrete organized fluid collection identified. 2. No acute fracture or gross dislocation. No aggressive osseous destruction identified. 3. No obvious retained metallic radiopaque foreign body identified in the soft tissues. D/ / 12/17/2017 21:44:01 Mamadou Williamson MD / [facility] Interpreting Provider: Mamadou Williamson MD 2200 hrs.: Patient had IV antibiotics CT shows cellulitis he is admitted to the hospitalist service. His critical care time excluding separately billable procedures is 40 minutes. - Lab Data Result diagrams: 12/18/17 00:21 12/17/17 20:13 Lab Results 12/17/17 12/17/17 12/17/17 Range/Units 20:13 20:13 20:13 WBC 20.0 H (4.3-11.1) K/mcL RBC 3.66 L (4.19-5.50) M/mcL Hgb 11.5 L (12.9-16.9) g/dL Hct 32.1 L (37.5-50.1) % MCV 87.7 (83.0-100.0) fL MCH 31.4 (28.0-33.3) pg MCHC 35.8 H (31.6-35.5) g/dL RDW 12.3 (11.5-14.5) % Plt Count 181 (140-400) K/mcL MPV 12.5 H (9.4-12.4) fL Immature Gran % 2.4 (0-4) % Seg Neutrophils % 83.4 % Lymphocytes % 5.7 % Monocytes % 8.2 % Eosinophils % 0.1 % Basophils % 0.2 % Neutrophils # 16.7 H (1.6-8.9) K/mcL Lymphocytes # 1.1 (0.6-4.6) K/mcL Monocytes # 1.6 H (0.0-1.3) K/mcL Eosinophils # 0.0 (0.0-0.6) K/mcL Basophils # 0.0 (0.0-0.2) K/mcL Platelet Estimate Normal (Normal) Sodium 127 L (136-145) mEq/L Potassium 4.0 (3.5-5.1) mEq/L Chloride 92 L (98-107) mEq/L Carbon Dioxide 26 (23-29) mEq/L BUN 23 H (6-20) mg/dL Creatinine 2.06 H (0.70-1.30) mg/dL Est GFR ( Amer) 42 L (> 60) Est GFR (Non-Af Amer) 34 L (> 60) BUN/Creatinine Ratio 11 (6-26) Glucose 613 H* (70-105) mg/dL POC Glucose (70-99) mg/dL Calculated Osmolality 296 (280-300) Lactic Acid 1.9 (0.5-2.2) mmol/L Calcium 8.4 L (8.6-10.3) mg/dL 12/17/17 12/17/17 Range/Units 22:47 22:48 WBC (4.3-11.1) K/mcL RBC (4.19-5.50) M/mcL Hgb (12.9-16.9) g/dL Hct (37.5-50.1) % MCV (83.0-100.0) fL MCH (28.0-33.3) pg MCHC (31.6-35.5) g/dL RDW (11.5-14.5) % Plt Count (140-400) K/mcL MPV (9.4-12.4) fL Immature Gran % (0-4) % Seg Neutrophils % % Lymphocytes % % Monocytes % % Eosinophils % % Basophils % % Neutrophils # (1.6-8.9) K/mcL Lymphocytes # (0.6-4.6) K/mcL Monocytes # (0.0-1.3) K/mcL Eosinophils # (0.0-0.6) K/mcL Basophils # (0.0-0.2) K/mcL Platelet Estimate (Normal) Sodium (136-145) mEq/L Potassium (3.5-5.1) mEq/L Chloride (98-107) mEq/L Carbon Dioxide (23-29) mEq/L BUN (6-20) mg/dL Creatinine (0.70-1.30) mg/dL Est GFR ( Amer) (> 60) Est GFR (Non-Af Amer) (> 60) BUN/Creatinine Ratio (6-26) Glucose (70-105) mg/dL POC Glucose 499 H* 480 H* (70-99) mg/dL Calculated Osmolality (280-300) Lactic Acid (0.5-2.2) mmol/L Calcium (8.6-10.3) mg/dL Attestation Statement - Attestation Attestation: I examined this patient and my medical decision-making was reviewed with the Resident Physician. I agree with the documented findings, disposition and treatment plan as described except to the extent set forth below. Patient seen and evaluated on arrival in the emergency department. Patient was seen by myself and Dr. Hannon, agree with her evaluation management plan, I supervised the patient's stay.
[2017-12-17] MEDS ORDERED: Isovue-370 500 ML INFUS..BTL IV ONE (20:15)
[2017-12-17 20:25] LABS: Basophils % 0.2 %; Eosinophils % 0.1 %; Hematocrit 32.1 % (37.5-50.1); Hemoglobin 11.5 g/dL (12.9-16.9); Immature Granulocytes % 2.4 % (0-4); Lymphocytes % 5.7 %; Mean Corpuscular HGB Conc 35.8 g/dL (31.6-35.5); Mean Corpuscular Hemoglobin 31.4 pg (28.0-33.3); Mean Corpuscular Volume 87.7 fL (83.0-100.0); Mean Platelet Volume 12.5 fL (9.4-12.4); Monocytes # 1.6 K/mcL (0.0-1.3); Monocytes % 8.2 %; Neutrophils # 16.7 K/mcL (1.6-8.9); Platelet Count 181 K/mcL (140-400); Red Blood Count 3.66 M/mcL (4.19-5.50); Red Cell Distribution Width 12.3 % (11.5-14.5); Segmented Neutrophils % 83.4 %
[2017-12-17 20:26] LABS: Lymphocytes # 1.1 K/mcL (0.6-4.6)
[2017-12-17 20:49] LABS: Platelet Estimate Normal (Normal)
[2017-12-17 20:54] LABS: Calcium 8.4 mg/dL (8.6-10.3)
[2017-12-17] MEDS ORDERED: Insulin Regular, Human 100 UNIT/ML SQ ONE (20:55)
--- NOTE | 2017-12-17 21:23 | Emergency Department Note ---
Disposition Clinical Impression: Lower extremity edema, Cellulitis and abscess of left leg, Diabetes mellitus, type II, insulin dependent, RANDY (acute kidney injury) Disposition: Admitted As Inpatient Condition: Fair Time of Disposition: 23:20 Extremity Problem HPI - General Chief complaint: ED Extremity Problem,Nontraumatic Stated complaint: Left leg pain Time Seen by Provider: 12/17/17 20:06 Source: patient Limitations: no limitations Nursing Notes Reviewed: Yes Vital Signs Reviewed: Yes - History of Present Illness HPI Narrative: Patient is a 47-year-old male who presents to [facility] ED with a chief complaint of left lower extremity pain. Pt stepped on a nail several days ago but is unsure exactly when. States he had worsening redness along his foot several days ago. Was seen at urgent care yesterday and given a prescription for Bactrim and given a tetanus shot. States since then the redness has progressed. Denies any chest pain, difficulty breathing, abdominal pain, problems with urination or bowel movements. Patient is a diabetic. Pt Subjective Complaint: extremity pain Onset (ago): day(s) Consistency: Worsening Injury Location: left, lower extremity Pain Scale: 8 Quality: aching Improves with: nothing Worsens with: nothing Associated symptoms: Reports: change in appearance, swelling, redness. Denies: chest pain, shortness of breath, abdominal pain, fever - Related Data Home Medications Medication Instructions Recorded Confirmed Metformin HCl [Metformin HCl ER] 1,000 mg PO BID 01/04/16 12/17/17 Amitriptyline [Elavil] 25 mg PO HS 03/16/17 12/17/17 Aspirin [Lo-Dose Aspirin EC] 81 mg PO DAILY 12/17/17 12/17/17 Insulin NPH Human Isophane 15 unit SQ BID 12/17/17 12/17/17 [Novolin N] Lovastatin [Mevacor] 40 mg PO HS 12/17/17 12/17/17 Metoprolol Tartrate [Lopressor] 50 mg PO BID 12/17/17 12/17/17 Previous Rx's Medication Instructions Recorded Furosemide [Lasix] 40 mg PO DAILY #30 tablet 11/10/15 Lisinopril [Zestril] 10 mg PO DAILY #30 tablet 11/10/15 Allergies Allergy/AdvReac Type Severity Reaction Status Date / Time No Known Allergies Allergy Verified 12/17/17 21:55 All systems ED: reviewed and negative except as stated. Past Medical History - Past Medical History Attestation: Yes The following information was validated with the patient. Source: patient Medical history: Reports: CHF, COPD, coronary artery disease, diabetes, GERD, hyperlipidemia, myocardial infarction Surgical history: Reports: angioplasty/stent Psychiatric history: Reports: no psych history - Social History Smoking Status: Former smoker Smokeless Tobacco Status: No Alcohol use: Reports: none Drug use: Reports: none Physical Exam - General Limitations: no limitations General appearance: alert, in no apparent distress - Head Head exam: atraumatic, normocephalic, normal inspection - Eye Eye exam: Present: normal appearance, EOMI - ENT ENT exam: normal exam, normal oropharynx, mucous membranes moist - Neck Neck exam: Present: normal inspection - Chest Chest inspection: Present: normal inspection, symmetric chest wall rise - Respiratory Respiratory exam: Present: normal lung sounds bilaterally - Cardiovascular Cardiovascular exam: Present: normal rhythm, tachycardia - Abdominal Exam Abdominal exam: Present: soft, Non-Tender. Absent: tenderness, distention, guarding, rebound, rigidity - Expanded Lower Extremity Exam Lower leg exam: Present: tenderness, swelling. Absent: abrasion, Homans' sign Ankle exam: Present: swelling Foot/toe exam: Present: swelling, erythema, puncture wound (At the distal part of the second metatarsal L foot). Absent: laceration, deformity, crepitus Neurovascular/Tendon exam: Present: normal capillary refill - Neurological Exam Neurological exam: Present: alert, oriented X3 - Psychiatric Psychiatric exam: Present: normal affect, normal mood - Skin Skin exam: Present: warm, dry, intact, normal color Course Course Narrative: Patient seen and examined. I was notified the patient met sepsis alert criteria. We went to evaluate the patient immediately. He is seen to have erythema extending from his foot up the middle part of his leg. He is a diabetic. Just had his tetanus updated yesterday. Was started on Bactrim but his erythema has worsened. He has a temperature 100.0 here. His tachycardic upon my exam. We will go and treat him for sepsis. I do not believe that patient is not septic shock. Septic workup initiated. labwork showed signs of over 20,000. Creatinine 2.0, signs of acute renal failure. A noncontrast CT of the foot was ordered. On my physical exam, he has erythema but no palpable crepitus. - Reevaluation(s) Reevaluation #1: Patient's glucose was also elevated in the 600s. He was given a dose of insulin here. Recheck was in the 400s. He was ordered another 10 units of insulin. I discussed patient with hospitalist for admission for severe cellulitis, sepsis, hyperglycemia, acute renal failure. Patient was given a dose of vancomycin, and Zosyn. Hospitalist would like a 200 mg of IV ciprofloxacin also added. Would also like another IV fluid bolus. This was ordered. Time: 23:29 Vital Signs Temperature 100.0 F H 12/17/17 19:51 Pulse Rate 110 12/17/17 19:51 Respiratory Rate 18 12/17/17 19:51 Blood Pressure 92/58 12/17/17 19:51 O2 Sat by Pulse Oximetry 97 12/17/17 19:51 Temperature 99.4 F 12/17/17 23:57 Pulse Rate 95 12/17/17 23:57 Respiratory Rate 18 12/17/17 23:57 Blood Pressure 120/79 12/17/17 23:57 O2 Sat by Pulse Oximetry 99 12/17/17 23:57 Oxygen Delivery Oxygen Delivery Room Air Extremity Problem, Nontraumati - Medical Records Medical records reviewed: Yes I reviewed the patient's medical records. - Lab Data Lab results reviewed: Yes I reviewed the patient's lab results. Result diagrams: 12/18/17 00:21 12/18/17 00:21 Lab Results 12/17/17 12/17/17 12/17/17 Range/Units 20:13 20:13 20:13 WBC 20.0 H (4.3-11.1) K/mcL RBC 3.66 L (4.19-5.50) M/mcL Hgb 11.5 L (12.9-16.9) g/dL Hct 32.1 L (37.5-50.1) % MCV 87.7 (83.0-100.0) fL MCH 31.4 (28.0-33.3) pg MCHC 35.8 H (31.6-35.5) g/dL RDW 12.3 (11.5-14.5) % Plt Count 181 (140-400) K/mcL MPV 12.5 H (9.4-12.4) fL Immature Gran % 2.4 (0-4) % Seg Neutrophils % 83.4 % Lymphocytes % 5.7 % Monocytes % 8.2 % Eosinophils % 0.1 % Basophils % 0.2 % Neutrophils # 16.7 H (1.6-8.9) K/mcL Lymphocytes # 1.1 (0.6-4.6) K/mcL Monocytes # 1.6 H (0.0-1.3) K/mcL Eosinophils # 0.0 (0.0-0.6) K/mcL Basophils # 0.0 (0.0-0.2) K/mcL Platelet Estimate Normal (Normal) Sodium 127 L (136-145) mEq/L Potassium 4.0 (3.5-5.1) mEq/L Chloride 92 L (98-107) mEq/L Carbon Dioxide 26 (23-29) mEq/L BUN 23 H (6-20) mg/dL Creatinine 2.06 H (0.70-1.30) mg/dL Est GFR ( Amer) 42 L (> 60) Est GFR (Non-Af Amer) 34 L (> 60) BUN/Creatinine Ratio 11 (6-26) Glucose 613 H* (70-105) mg/dL POC Glucose (70-99) mg/dL Calculated Osmolality 296 (280-300) Lactic Acid 1.9 (0.5-2.2) mmol/L Calcium 8.4 L (8.6-10.3) mg/dL 18 12/17/17 Range/Units 22:47 22:48 WBC (4.3-11.1) K/mcL RBC (4.19-5.50) M/mcL Hgb (12.9-16.9) g/dL Hct (37.5-50.1) % MCV (83.0-100.0) fL MCH (28.0-33.3) pg MCHC (31.6-35.5) g/dL RDW (11.5-14.5) % Plt Count (140-400) K/mcL MPV (9.4-12.4) fL Immature Gran % (0-4) % Seg Neutrophils % % Lymphocytes % % Monocytes % % Eosinophils % % Basophils % % Neutrophils # (1.6-8.9) K/mcL Lymphocytes # (0.6-4.6) K/mcL Monocytes # (0.0-1.3) K/mcL Eosinophils # (0.0-0.6) K/mcL Basophils # (0.0-0.2) K/mcL Platelet Estimate (Normal) Sodium (136-145) mEq/L Potassium (3.5-5.1) mEq/L Chloride (98-107) mEq/L Carbon Dioxide (23-29) mEq/L BUN (6-20) mg/dL Creatinine (0.70-1.30) mg/dL Est GFR ( Amer) (> 60) Est GFR (Non-Af Amer) (> 60) BUN/Creatinine Ratio (6-26) Glucose (70-105) mg/dL POC Glucose 499 H* 480 H* (70-99) mg/dL Calculated Osmolality (280-300) Lactic Acid (0.5-2.2) mmol/L Calcium (8.6-10.3) mg/dL - Radiology Data Radiology results reviewed: Yes I reviewed the patient's radiology results. Foot CT 12/17/17 20:57 IMPRESSION: 1. Findings above most likely representing a severe cellulitis of the left lower leg, left foot, and left ankle without a discrete organized fluid collection identified. 2. No acute fracture or gross dislocation. No aggressive osseous destruction identified. 3. No obvious retained metallic radiopaque foreign body identified in the soft tissues. D/ / 12/17/2017 21:44:01 Mamadou Williamson MD / [facility] Interpreting Provider: Mamadou Williamson MD - EKG Data EKG attestation: Yes I reviewed and interpreted this EKG. EKG results narrative: EKG done at 2036 shows sinus tachycardia with a rate of [address] elevation or depression noted. Normal axis.
[2017-12-17] MEDS ORDERED: Insulin DETEMIR 100 UNIT/ML X5UNITS SQ ONE (22:50)
[2017-12-17] MEDS ORDERED: Naloxone 0.4 MG/ML INJ IVP PRN (23:13)
--- NOTE | 2017-12-17 23:13 | Internal Med History&Physical ---
<HayesBabak gutierrez - Last Filed: 12/17/17 23:57> Date of Encounter: 12/17/17 Time of Encounter: 23:11 Internal Medicine - H&P: HPI Chief complaint: left foot cellulitis Admitted From: Emergency Dept Plans for Post Hospital Care: Home History of present illness: Mr. Vargas is a 47 year old male with past medical history of systolic CHF (last echo 08/08/16 showed EF 55%), tobacco use, uncontrolled diabetes type II, PVD, ischemic cardiomyopathy, coronary artery disease with history of stent placement. Patient states that about 1.5 weeks ago he stepped on a piece of wood that had nails on it, but did not feel it. Later on, he noticed that his foot started swelling and became red since this past Friday. He went to the [facility] and got Bactrim and another unknown antibiotic that he has been taking since yesterday. Despite antibiotic use, thus cellulitis on his left foot was progressively worsening, and his foot was becoming more erythematous and swollen with pustular material seeping out. Patient admits to fevers with highs temperature of 101.2. He admits to chills. He denies chest pain, shortness of breath, hematuria, hematochezia, melena. Patient does have history of uncontrolled diabetes and he does not check his sugars regularly. The last time he checked his blood sugar was last week and it was running high 200s. Patient was not up to date with his tetanus immunization, but did receive a tetanus shot yesterday at the urgent care. Past Med Surg Social Fam HX - Past Medical History Medical history: CHF, COPD, coronary artery disease, diabetes, GERD, hyperlipidemia, myocardial infarction Psychiatric history: no psych history - Past Surgical History Surgical History: angioplasty/stent - Social History Smoking Status: Former smoker Smokeless Tobacco Status: No Alcohol use: none Drug use: none - Family History Father Family Member Ethnicity: Non- Living Status: Hx Family Cardiac Disorders: Yes (HTN) Hx Family Endocrine Disorder: Yes (DM) Sister Family Member Ethnicity: Non- Living Status: Still Living Hx Family Endocrine Disorder: Yes (DM) Brother Family Member Ethnicity: Non- Living Status: Still Living Hx Family Cardiac Disorders: Yes ([place] Age 50) Hx Family Endocrine Disorder: Yes (DM) Mother Family Member Ethnicity: Non- Living Status: Hx Family Cardiac Disorders: Yes (HD) Hx Family Endocrine Disorder: Yes (DM) Internal Medicine - H&P: Meds Furosemide [Lasix] 40 mg PO DAILY #30 tablet 11/10/15 [Rx] Lisinopril [Zestril] 10 mg PO DAILY #30 tablet 11/10/15 [Rx] Metformin HCl [Metformin HCl ER] 1,000 mg PO BID 01/04/16 [History] Amitriptyline [Elavil] 25 mg PO HS 03/16/17 [History] Aspirin [Lo-Dose Aspirin EC] 81 mg PO DAILY 12/17/17 [History] Insulin NPH Human Isophane [Novolin N] 15 unit SQ BID 12/17/17 [History] Lovastatin [Mevacor] 40 mg PO HS 12/17/17 [History] Metoprolol Tartrate [Lopressor] 50 mg PO BID 12/17/17 [History] 3 Allergy/AdvReac Type Severity Reaction Status Date / Time No Known Allergies Allergy Verified 12/17/17 21:55 All Systems PM: A 10-system review of systems was performed and is negative for pertinent findings except as documented above in the HPI. - Constitutional Vitals: Temp Pulse Resp BP Pulse Ox 100.0 F H 101 18 107/67 97 12/17/17 19:51 12/17/17 21:49 12/17/17 21:49 12/17/17 21:49 12/17/17 21:49 General appearance: Present: A&O X 3, pleasant, no acute distress, answers questions appropriately Exam: Patient is very disheveled looking, clothes appear dirty, patient has dirt on both of his hands and dirt under his fingernails. - Head Head exam: Present: atraumatic, normocephalic - Neck Neck exam general surgery: Present: supple, trachea midline - Respiratory Respiratory exam: Present: CTAB - Cardiovascular Cardiovascular exam: Present: +S1, +S2, tachycardia - GI/Abdominal GI/Abdominal exam: Present: normal bowel sounds, soft. Absent: distended, tenderness - Extremities Exam Additional comments: Left foot appears swollen [id number] ankle, erythematous, warm to touch, open wound with pus coming out in between the 2nd and 3rd toes. - Neurological Exam Neurological exam: Present: alert, oriented X3, no focal deficits - Psychiatric Psychiatric exam: Present: normal affect, normal mood Internal Med - H&P Results - Labs CBC & Chem 7: 12/17/17 20:13 12/17/17 20:13 - Assessment and plan (1) Cellulitis Current Visit: No Status: Acute Assessment and plan: Plan as above Qualifiers: Site of cellulitis: extremity Site of cellulitis of extremity: lower extremity Laterality: left Qualified Code(s): L03.116 - Cellulitis of left lower limb (2) RANDY (acute kidney injury) Current Visit: Yes Status: Acute Assessment and plan: Likely secondary to sepsis. Patient received 2 fluid boluses in the ED. Hold furosemide and Lasix continue maintenance fluids and recheck kidney function. Check urine urea and urine creatinine (3) CAD in [place] artery Current Visit: No Status: Acute Assessment and plan: Continue aspirin, Statin, beta shira (4) Ischemic cardiomyopathy Current Visit: No Status: Acute (5) Diabetes mellitus, type II, insulin dependent Current Visit: No Status: Chronic Assessment and plan: History of uncontrolled type II diabetes continue basal and medium dose sliding scale insulin ADA diet check A1 C with a.m. labs. (6) HLD (hyperlipidemia) Current Visit: No Status: Chronic Assessment and plan: Continue home Statin Qualifiers: Hyperlipidemia type: pure hypercholesterolemia Qualified Code(s): E78.00 - Pure hypercholesterolemia, unspecified; E78.0 - Pure hypercholesterolemia (7) HTN (hypertension) Current Visit: No Status: Chronic Assessment and plan: Continue home beta shira, hold lisinopril. Qualifiers: Hypertension type: essential hypertension Qualified Code(s): I10 - Essential (primary) hypertension (8) DVT prophylaxis Current Visit: No Status: Acute Assessment and plan: Heparin SQ (9) Severe sepsis Current Visit: Yes Status: Acute Assessment and plan: Fever, tachycardia, leukocytosis, Randy suspected source of infection: left lower extremity cellulitis left foot CT showed severe cellulitis of the left foot, left ankle without discrete agonized fluid collection, no acute fracture or gross dislocation, no aggressive osseous destruction, no obvious foreign body identified. In the emergency department, patient received 2 fluid boluses with appropriate increase in blood pressure. He also received one dose vancomycin, one dose Zosyn, one dose ciprofloxacin. Plan: blood cultures X2 pending wound culture pending continue vancomycin, Zosyn-day 1 continue maintenance fluids hold Lasix and lisinopril due to Randy. Check urine creatinine and urine urea - Time Spent With Patient Total time spent is greater than 50% in coordination of care (as documented) at patient's floor/unit and/or counseling patient: <Esther Adams - Last Filed: 12/18/17 07:06> Date of Encounter: 12/18/17 Internal Medicine - H&P: HPI History of present illness: Mr. Vargas is a 47 year old male All Systems PM: A 10-system review of systems was performed and is negative for pertinent findings except as documented above in the HPI. - Constitutional Vitals: Temp Pulse Resp BP Pulse Ox 97.7 F 83 18 114/79 96 12/18/17 03:50 12/18/17 03:50 12/18/17 03:50 12/18/17 03:50 12/18/17 03:50 Internal Med - H&P Results - Labs CBC & Chem 7: 12/18/17 00:21 12/18/17 00:21 Labs: Short CBC 12/18/17 Range/Units 00:21 WBC 16.8 H (4.3-11.1) K/mcL Hgb 11.0 L (12.9-16.9) g/dL Hct 30.6 L (37.5-50.1) % Plt Count 171 (140-400) K/mcL Neutrophils # 13.5 H (1.6-8.9) K/mcL BMP 12/18/17 00:21 Sodium 132 L Potassium 3.6 Chloride 97 L Carbon Dioxide 23 BUN 23 H Creatinine 1.98 H Glucose 469 H Calcium 7.8 L - Attending Attestation I have seen and examined this patient independently, I have discussed with the resident physician Dr. Lamas regarding the management plan. Agree with the documentation. - Assessment and plan (1) DVT prophylaxis Current Visit: No Status: Acute (2) Ischemic cardiomyopathy Current Visit: No Status: Acute (3) CAD in [place] artery Current Visit: No Status: Acute (4) Diabetes mellitus, type II, insulin dependent Current Visit: Yes Status: Chronic (5) HLD (hyperlipidemia) Current Visit: No Status: Chronic Qualifiers: Hyperlipidemia type: pure hypercholesterolemia Qualified Code(s): E78.00 - Pure hypercholesterolemia, unspecified; E78.0 - Pure hypercholesterolemia (6) Cellulitis Current Visit: No Status: Acute Qualifiers: Site of cellulitis: extremity Site of cellulitis of extremity: lower extremity Laterality: left Qualified Code(s): L03.116 - Cellulitis of left lower limb (7) HTN (hypertension) Current Visit: No Status: Chronic Qualifiers: Hypertension type: essential hypertension Qualified Code(s): I10 - Essential (primary) hypertension (8) RANDY (acute kidney injury) Current Visit: Yes Status: Acute (9) Severe sepsis Current Visit: Yes Status: Acute - Time Spent With Patient Total time spent is greater than 50% in coordination of care (as documented) at patient's floor/unit and/or counseling patient:
[2017-12-17] MEDS ORDERED: D5% in Water 1,000 ML IVC PRN (23:21)
[2017-12-17] MEDS ORDERED: Dextrose Gel 15 GM/37.5 ML TUBE PO PRN ×2 (23:21)
[2017-12-17] MEDS ORDERED: *HR* Dextrose 50 % in Water (Syg) 50 ML SYRINGE IVP PRN (23:21)
[2017-12-17] MEDS ORDERED: 0.9 % Sodium Chloride 1,000 ML IVC SCH (23:30)
[2017-12-17] MEDS ORDERED: Vancomycin 1,750 MG in 0.9 % Sodium Chloride 250 ML IVPB SCH (23:45)
[2017-12-18] MEDS: Aspirin Enteric Coated 81 MG Tablet PO SCH ×2 (00:22→08:50)
[2017-12-18] MEDS: Acetaminophen 325 MG TABLET PO PRN ×2 (00:22→10:17)
[2017-12-18] MEDS: *HR* Heparin 5,000 UNIT/ML VIAL SQ SCH ×3 (00:23→17:59)
[2017-12-18] MEDS ORDERED: Piperacillin/Tazobactam 3.375 GM in 0.9 % Sodium Chloride Mini Bag 100 ML IVPB SCH ×2 (00:30→16:00)
[2017-12-18 00:34] LABS: Basophils % 0.2 %; Eosinophils # 0.1 K/mcL (0.0-0.6); Eosinophils % 0.5 %; Hematocrit 30.6 % (37.5-50.1); Immature Granulocytes % 3.6 % (0-4); Lymphocytes # 1.1 K/mcL (0.6-4.6); Lymphocytes % 6.8 %; Mean Corpuscular HGB Conc 35.9 g/dL (31.6-35.5); Mean Corpuscular Hemoglobin 31.6 pg (28.0-33.3); Mean Corpuscular Volume 87.9 fL (83.0-100.0); Mean Platelet Volume 12.1 fL (9.4-12.4); Monocytes # 1.4 K/mcL (0.0-1.3); Monocytes % 8.3 %; Neutrophils # 13.5 K/mcL (1.6-8.9); Platelet Count 171 K/mcL (140-400); Red Blood Count 3.48 M/mcL (4.19-5.50); Red Cell Distribution Width 12.4 % (11.5-14.5); Segmented Neutrophils % 80.6 %
[2017-12-18 00:57] LABS: Calcium 7.8 mg/dL (8.6-10.3); Magnesium 1.9 mg/dL (1.6-2.6); Phosphorous 1.6 mg/dL (2.7-4.5); Potassium 3.6 mEq/L (3.5-5.1)
[2017-12-18 01:06] LABS: Platelet Estimate Normal (Normal)
[2017-12-18] MEDS: Piperacillin/Tazobactam 3.375 GM in 0.9 % Sodium Chloride Mini Bag 100 ML IVPB SCH ×2 (04:15→12:22)
[2017-12-18 08:43] LABS: Estimated Average Glucose 226 mg/dl; Hemoglobin A1C 9.5 %
[2017-12-18] MEDS: Insulin LISPRO 300 UNITS/3 ML VIAL SQ SCH ×4 (08:50→21:53)
[2017-12-18] MEDS: *HR* HYDROcodone/Acet 5/325 mg TABLET PO PRN (15:09)
--- NOTE | 2017-12-18 15:09 | Electrocardiograph Report ---
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
[2017-12-18] MEDS ORDERED: Sodium Phosphate 30 MMOL in D5% in Water 100 ML IVPB ONE (16:57)
--- NOTE | 2017-12-18 17:27 | Internal Med Progress Note ---
Date of Encounter: 12/18/17 Time of Encounter: 17:24 - Assessment and plan (1) Severe sepsis Current Visit: Yes Status: Acute Assessment and plan: Fever, tachycardia, leukocytosis, Randy suspected source of infection: left lower extremity cellulitis left foot CT showed severe cellulitis of the left foot, left ankle without discrete agonized fluid collection, no acute fracture or gross dislocation, no aggressive osseous destruction, no obvious foreign body identified. In the emergency department, patient received 2 fluid boluses with appropriate increase in blood pressure. He also received one dose vancomycin, one dose Zosyn, one dose ciprofloxacin. Plan: blood cultures X2 pending wound culture pending Continue vancomycin, Zosyn-day 1 Continue IV fluid hydration Wound cultures obtained today Consult Wound Care Consult Podiatry given extent of infection. (2) Cellulitis Current Visit: No Status: Acute Assessment and plan: Plan as above Qualifiers: Site of cellulitis: extremity Site of cellulitis of extremity: lower extremity Laterality: left Qualified Code(s): L03.116 - Cellulitis of left lower limb (3) RANDY (acute kidney injury) Current Visit: Yes Status: Acute Assessment and plan: Likely secondary to sepsis. Patient received 2 fluid boluses in the ED. Hold furosemide and Lisinopril Renally dose medications avoid all nephrotoxic agents. Vancomycin to be dosed by pharmacy. continue maintenance fluids and recheck kidney function. Check urine urea and urine creatinine May see worsening kidney function given recent IV contrast administration (4) Ischemic cardiomyopathy Current Visit: No Status: Acute (5) CAD in [place] artery Current Visit: No Status: Acute Assessment and plan: Continue aspirin, Statin, beta shira (6) Diabetes mellitus, type II, insulin dependent Current Visit: Yes Status: Chronic Assessment and plan: History of uncontrolled type II diabetes continue basal and medium dose sliding scale insulin - weight based and adjust as needed ADA diet check A1 C with a.m. labs. (7) HLD (hyperlipidemia) Current Visit: No Status: Chronic Assessment and plan: Continue home Statin Qualifiers: Hyperlipidemia type: pure hypercholesterolemia Qualified Code(s): E78.00 - Pure hypercholesterolemia, unspecified; E78.0 - Pure hypercholesterolemia (8) HTN (hypertension) Current Visit: No Status: Chronic Assessment and plan: Continue home beta shira, hold lisinopril. Qualifiers: Hypertension type: essential hypertension Qualified Code(s): I10 - Essential (primary) hypertension (9) DVT prophylaxis Current Visit: No Status: Acute Assessment and plan: Heparin SQ - Time Spent With Patient Total time spent is greater than 50% in coordination of care (as documented) at patient's floor/unit and/or counseling patient: - Subjective Interval history: No acute events. No complaints today. Denies fevers/chills, n/v. Appetite better than it was in the past several days. - Constitutional Vitals: Temp Pulse Resp BP Pulse Ox 99 F 90 17 125/79 100 12/18/17 15:52 12/18/17 15:52 12/18/17 15:52 12/18/17 15:52 12/18/17 15:52 General appearance: Present: A&O X 3, pleasant, no acute distress, answers questions appropriately - Head Head exam: Present: atraumatic, normocephalic - Eye Eye exam: Present: PERRL, conjuntiva pink, sclera anicteric Pupils: Present: PERRL - Neck Neck exam general surgery: Present: supple, trachea midline. Absent: lymphadenopathy - Respiratory Respiratory exam: Present: CTAB. Absent: accessory muscle use, rales, rhonchi, wheezes - Cardiovascular Cardiovascular exam: Present: RRR, +S1, +S2. Absent: diastolic murmur, gallop, rubs, systolic murmur - GI/Abdominal GI/Abdominal exam: Present: normal bowel sounds, soft, no peritoneal signs. Absent: distended, tenderness - Extremities Exam Extremities exam: Present: pedal edema (left lower extremity with 2+ pedal edema.), warm, radial pulses palpable and symmetrical (not easily palpable due to edema). Absent: calf tenderness, cyanotic, tenderness Additional comments: Absent sensation of distal toes in both feet. left foot edematous and erythematous. Serosanguineous drainage in between 1st and 2nd toes. - Neurological Exam Neurological exam: Present: CN II-XII intact, oriented X3, no focal deficits. Absent: pronater drift, facial droop, speech deficit - Skin Skin exam: Present: dry, intact Internal Medicine: Result - Labs CBC & Chem 7: 12/18/17 00:21 12/18/17 00:21 Labs: Short CBC 12/18/17 Range/Units 00:21 WBC 16.8 H (4.3-11.1) K/mcL Hgb 11.0 L (12.9-16.9) g/dL Hct 30.6 L (37.5-50.1) % Plt Count 171 (140-400) K/mcL Neutrophils # 13.5 H (1.6-8.9) K/mcL BMP 12/18/17 00:21 Sodium 132 L Potassium 3.6 Chloride 97 L Carbon Dioxide 23 BUN 23 H Creatinine 1.98 H Glucose 469 H Calcium 7.8 L Consult Discharge Plan - Plan Referrals: Babak Lamas DO [Primary Care Provider] -
[2017-12-18] MEDS ORDERED: Insulin DETEMIR 100 UNIT/ML X5UNITS SQ SCH (21:00)
[2017-12-18] MEDS: Insulin DETEMIR 100 UNIT/ML X5UNITS SQ SCH (21:52)
[2017-12-19] MEDS: *HR* Heparin 5,000 UNIT/ML VIAL SQ SCH ×4 (00:20→23:24)
[2017-12-19] MEDS: Piperacillin/Tazobactam 3.375 GM in 0.9 % Sodium Chloride Mini Bag 100 ML IVPB SCH ×3 (00:21→20:10)
[2017-12-19 02:02] LABS: Basophils % 0.2 %; Calcium 8.1 mg/dL (8.6-10.3); Eosinophils # 0.2 K/mcL (0.0-0.6); Eosinophils % 1.5 %; Hematocrit 31.7 % (37.5-50.1); Hemoglobin 11.3 g/dL (12.9-16.9); Immature Granulocytes % 1.1 % (0-4); Lymphocytes # 1.3 K/mcL (0.6-4.6); Lymphocytes % 8.7 %; Mean Corpuscular HGB Conc 35.6 g/dL (31.6-35.5); Mean Corpuscular Hemoglobin 31.3 pg (28.0-33.3); Mean Corpuscular Volume 87.8 fL (83.0-100.0); Mean Platelet Volume 12.6 fL (9.4-12.4); Monocytes # 1.2 K/mcL (0.0-1.3); Monocytes % 8.1 %; Neutrophils # 11.5 K/mcL (1.6-8.9); Platelet Count 214 K/mcL (140-400); Potassium 4.2 mEq/L (3.5-5.1); Red Blood Count 3.61 M/mcL (4.19-5.50); Red Cell Distribution Width 12.8 % (11.5-14.5); Segmented Neutrophils % 80.4 %
[2017-12-19] MEDS: Albuterol 2.5 MG/3 ML NEBULIZER IH PRN (04:45)
[2017-12-19] MEDS ORDERED: Ringers Solution, Lactated 500 ML IVC ONE (07:46)
--- NOTE | 2017-12-19 07:46 | Internal Med Progress Note ---
Date of Encounter: 12/19/17 Time of Encounter: 07:42 - Assessment and plan (1) Severe sepsis Current Visit: Yes Status: Acute Assessment and plan: 3 SIRS criteria on admission: Fever, tachycardia, leukocytosis, Randy suspected source of infection: left lower extremity cellulitis - left foot CT showed severe cellulitis of the left foot, left ankle without discrete agonized fluid collection, no acute fracture or gross dislocation, no aggressive osseous destruction, no obvious foreign body identified. - In the emergency department, patient received 2 fluid boluses with appropriate increase in blood pressure. He also received one dose vancomycin, one dose Zosyn, one dose ciprofloxacin. WBC improving today, afebrile though he is still tachycardic. Plan: blood cultures X2 pending, wound culture pending Continue vancomycin, Zosyn-day 2 Consult Wound Care Consult Podiatry given extent of infection. Patient is fluid responsive - Will give additional IV fluid today. Patient has CAD, h/o [place] needs IV fluid will need ot give judiciously (2) Cellulitis Current Visit: No Status: Acute Assessment and plan: Plan as above Qualifiers: Site of cellulitis: extremity Site of cellulitis of extremity: lower extremity Laterality: left Qualified Code(s): L03.116 - Cellulitis of left lower limb (3) RANDY (acute kidney injury) Current Visit: Yes Status: Acute Assessment and plan: Likely secondary to sepsis. Patient received 2 fluid boluses in the ED. Hold furosemide and Lisinopril Renally dose medications avoid all nephrotoxic agents. Vancomycin to be dosed by pharmacy. May see worsening kidney function given recent IV contrast administration - 12/19: creatinine fairly unchanged since yesterday. Continue IC fluids. (4) Ischemic cardiomyopathy Current Visit: No Status: Acute (5) CAD in [place] artery Current Visit: No Status: Acute Assessment and plan: Continue aspirin, Statin, beta shira (6) Diabetes mellitus, type II, insulin dependent Current Visit: Yes Status: Chronic (7) HLD (hyperlipidemia) Current Visit: No Status: Chronic Assessment and plan: Continue home Statin Qualifiers: Hyperlipidemia type: pure hypercholesterolemia Qualified Code(s): E78.00 - Pure hypercholesterolemia, unspecified; E78.0 - Pure hypercholesterolemia (8) HTN (hypertension) Current Visit: No Status: Chronic Assessment and plan: Continue home beta shira, hold lisinopril. Qualifiers: Hypertension type: essential hypertension Qualified Code(s): I10 - Essential (primary) hypertension (9) DVT prophylaxis Current Visit: No Status: Acute Assessment and plan: Heparin SQ - Time Spent With Patient Total time spent is greater than 50% in coordination of care (as documented) at patient's floor/unit and/or counseling patient: - Subjective Interval history: No acute events. No complaints today. Denies fevers/chills, n/v. He states swelling in foot has improved. - Constitutional Vitals: Temp Pulse Resp BP Pulse Ox 98.5 F 108 18 117/69 94 12/19/17 06:52 12/19/17 06:52 12/19/17 06:52 12/19/17 06:52 12/19/17 06:52 General appearance: Present: A&O X 3, pleasant, no acute distress, answers questions appropriately - Head Head exam: Present: atraumatic, normocephalic - Eye Eye exam: Present: PERRL, conjuntiva pink, sclera anicteric Pupils: Present: PERRL - Neck Neck exam general surgery: Present: supple, trachea midline. Absent: lymphadenopathy - Respiratory Respiratory exam: Present: CTAB. Absent: accessory muscle use, rales, rhonchi, wheezes - Cardiovascular Cardiovascular exam: Present: RRR, +S1, +S2. Absent: diastolic murmur, gallop, rubs, systolic murmur - GI/Abdominal GI/Abdominal exam: Present: normal bowel sounds, soft, no peritoneal signs. Absent: distended, tenderness - Extremities Exam Extremities exam: Present: pedal edema, warm, radial pulses palpable and symmetrical. Absent: calf tenderness, cyanotic Additional comments: Left foot edematous with erythema, slightly improved since yesterday. Dorsal region of left foot with purulent drainage from the dressing site - Neurological Exam Neurological exam: Present: CN II-XII intact, oriented X3, no focal deficits. Absent: pronater drift, facial droop, speech deficit - Skin Skin exam: Present: dry, intact Internal Medicine: Result - Labs CBC & Chem 7: 12/19/17 01:23 12/19/17 01:23 Labs: Short CBC 12/19/17 Range/Units 01:23 WBC 14.3 H (4.3-11.1) K/mcL Hgb 11.3 L (12.9-16.9) g/dL Hct 31.7 L (37.5-50.1) % Plt Count 214 (140-400) K/mcL Neutrophils # 11.5 H (1.6-8.9) K/mcL BMP 12/19/17 01:23 Sodium 134 L Potassium 4.2 Chloride 102 Carbon Dioxide 25 BUN 29 H Creatinine 1.96 H Glucose 270 H Calcium 8.1 L Consult Discharge Plan - Plan Referrals: Babak Lamas DO [Primary Care Provider] -
[2017-12-19] MEDS: Insulin LISPRO 300 UNITS/3 ML VIAL SQ SCH ×4 (08:28→20:25)
[2017-12-19] MEDS: Aspirin Enteric Coated 81 MG Tablet PO SCH (08:31)
[2017-12-19] MEDS: Ringers Solution, Lactated 1,000 ML IVC SCH ×2 (08:31→13:54)
[2017-12-19] MEDS: *HR* HYDROcodone/Acet 5/325 mg TABLET PO PRN ×2 (11:38→17:53)
--- NOTE | 2017-12-19 13:42 | Podiatry Consult Note ---
Date of Encounter: 12/19/17 Time of Encounter: 12:00 Assessment and Plan (1) Cellulitis and abscess of left leg Current visit: Yes Status: Acute (2) Puncture wound Current visit: Yes Status: Acute Assessment: Puncture wound of the plantar aspect of the left foot with tracking between toes #1 and #2 and to dorsal aspect of foot There is active drainage to wound and foul odor There is dusky appearance of skin of wound as well as maceration Moderate amount of serosang drainage expressed from wound Cellulitis extends across entire dorsal aspect of foot, has been marked for monitoring Admit WBC 20.0 now 14- started on vanc and zosyn Wound and blood cultures were obtained Tmax 99.3, now 98.5 CT negative for osteomyelitis however there is drainage and tracking of wound Patient will be NPO after midnight Will plan for formal debridement of wound tomorrow in OR with Sessions with probable wound vac placement Patient informed of plan Continue medical management and tight glucose control History of Present Illness HPI: Mr. Vargas is a 47 year old male with past medical history of systolic CHF tobacco use, uncontrolled diabetes type II, PVD, and CAD. Patient states that about 2 weeks ago he stepped on a piece of wood that had nails on it, states he was not aware he stepped on the nail. States that this past friday/friday he started to notice drainage and the wound to the bottom of his foot, states that by Friday a wound was forming to the top of his foot and he noticed the skin became dusky and that his leg started to swell and became red. Patient denies any pain as he is neuropathic. He was evaluated at the [facility] and was started on Bactrim yesterday and then came to [facility]. Patient admits to fevers with highs temperature of 101.2. states she has been soaking foot and applying triple antibiotic ointment since wound was noted. He denies chest pain, shortness of breath, Patient does have history of uncontrolled diabetes. Per internal medicine patient was not up to date with his tetanus immunization , but did receive a tetanus shot yesterday at the urgent care. Patient resting comfortably on arrival today with dressing intact to foot. States he is feeling a little better today and has not experienced any chills. at bedside. Past Med Surg Social Fam HX - Past Medical History Medical history: CHF, COPD, coronary artery disease, diabetes, GERD, hyperlipidemia, myocardial infarction Psychiatric history: no psych history - Past Surgical History Surgical History: angioplasty/stent - Social History Smoking Status: Former smoker Smokeless Tobacco Status: No Alcohol use: none Drug use: none - Family History Father History Unknown: Yes Family Member Ethnicity: Non- Living Status: Hx Family Cardiac Disorders: Yes (HTN) Hx Family Endocrine Disorder: Yes (DM) Sister History Unknown: Yes Family Member Ethnicity: Non- Living Status: Still Living Hx Family Endocrine Disorder: Yes (DM) Brother History Unknown: Yes Family Member Ethnicity: Non- Living Status: Still Living Hx Family Cardiac Disorders: Yes (MT Age 50) Hx Family Endocrine Disorder: Yes (DM) Mother History Unknown: Yes Family Member Ethnicity: Non- Living Status: Hx Family Cardiac Disorders: Yes (HD) Hx Family Endocrine Disorder: Yes (DM) Medications and Allergies Furosemide [Lasix] 40 mg PO DAILY #30 tablet 11/10/15 [Rx] Lisinopril [Zestril] 10 mg PO DAILY #30 tablet 11/10/15 [Rx] Metformin HCl [Metformin HCl ER] 1,000 mg PO BID 01/04/16 [History] Amitriptyline [Elavil] 25 mg PO HS 03/16/17 [History] Aspirin [Lo-Dose Aspirin EC] 81 mg PO DAILY 12/17/17 [History] Insulin NPH Human Isophane [Novolin N] 15 unit SQ BID 12/17/17 [History] Lovastatin [Mevacor] 40 mg PO HS 12/17/17 [History] Metoprolol Tartrate [Lopressor] 50 mg PO BID 12/17/17 [History] 3 Allergy/AdvReac Type Severity Reaction Status Date / Time No Known Allergies Allergy Verified 12/17/17 21:55 All Systems Reviewed: The remainder of the systems were reviewed and are negative Physical Exam - Constitutional Vitals: Temp Pulse Resp BP Pulse Ox 98.5 F 88 16 156/85 97 12/19/17 11:43 12/19/17 11:43 12/19/17 11:43 12/19/17 11:43 12/19/17 11:43 Exam: General Examination: CONSTITUTIONAL: Alert, oriented, in no acute distress, non-toxic. EXTREMITIES: CFT 3 seconds all toes. Edema +2 and pedal pulses palpable. SKIN:Large soft tissue injury noted to left foot. Puncture wound of the plantar aspect of the left foot with tracking between toes #1 and #2 and to dorsal aspect of foot. There is active serosang drainage to wound and foul odor There is dusky appearance of skin of wound as well as maceration. Entire wound measuring approx 1eds5la with open wound between toes which does not probe to bone. Cellulitis extends across entire dorsal aspect of foot, has been marked for monitoring No foreign body noted NEUROLOGIC: There is a loss of protective sensation. No sensation to light or moderate touch Results - Labs Result Diagrams: 12/19/17 01:23 12/19/17 01:23 Labs: Abnormal lab results WBC 14.3 K/mcL (4.3-11.1) H 12/19/17 01:23 RBC 3.61 M/mcL (4.19-5.50) L 12/19/17 01:23 Hgb 11.3 g/dL (12.9-16.9) L 12/19/17 01:23 Hct 31.7 % (37.5-50.1) L 12/19/17 01:23 MCHC 35.6 g/dL (31.6-35.5) H 12/19/17 01:23 MPV 12.6 fL (9.4-12.4) H 12/19/17 01:23 Neutrophils # 11.5 K/mcL (1.6-8.9) H 12/19/17 01:23 Sodium 134 mEq/L (136-145) L 12/19/17 01:23 BUN 29 mg/dL (6-20) H 12/19/17 01:23 Creatinine 1.96 mg/dL (0.70-1.30) H 12/19/17 01:23 Est GFR ( Amer) 44 (> 60) L 12/19/17 01:23 Est GFR (Non-Af Amer) 37 (> 60) L 12/19/17 01:23 Glucose 270 mg/dL (70-105) H 12/19/17 01:23 POC Glucose 321 mg/dL (70-99) H 12/19/17 11:36 Hemoglobin A1c 9.5 % (-5.6) H 12/17/17 20:13 Calcium 8.1 mg/dL (8.6-10.3) L 12/19/17 01:23 Phosphorus 1.6 mg/dL (2.7-4.5) L 12/18/17 00:21 H & H 12/19/17 Range/Units 01:23 Hgb 11.3 L (12.9-16.9) g/dL Hct 31.7 L (37.5-50.1) % All other labs normal. Consult Discharge Plan - Plan Referrals: Babak Lamas DO [Primary Care Provider] -
[2017-12-19] MEDS: Insulin DETEMIR 100 UNIT/ML X5UNITS SQ SCH (20:26)
[2017-12-20] MEDS: Acetaminophen 325 MG TABLET PO PRN (00:25)
[2017-12-20 02:18] LABS: Magnesium 2.1 mg/dL (1.6-2.6); Phosphorous 2.4 mg/dL (2.7-4.5)
[2017-12-20 02:21] LABS: BUN/Creatinine Ratio 15 (6-26); Blood Urea Nitrogen 22 mg/dL (6-20); Calcium 8.2 mg/dL (8.6-10.3); Carbon Dioxide 24 mEq/L (23-29); Chloride 105 mEq/L (98-107); Glucose 86 mg/dL (70-105); Osmolality,Calculated 285 (280-300); Potassium 3.9 mEq/L (3.5-5.1); Sodium 136 mEq/L (136-145); eGFR For African Americans > 60 (> 60); eGFR For Non-African Americans 50 (> 60)
[2017-12-20 02:46] LABS: Basophils # 0.1 K/mcL (0.0-0.2); Basophils % 0.5 %; Eosinophils # 0.2 K/mcL (0.0-0.6); Eosinophils % 2.1 %; Hematocrit 29.7 % (37.5-50.1); Hemoglobin 10.5 g/dL (12.9-16.9); Immature Granulocytes % 1.7 % (0-4); Lymphocytes # 1.4 K/mcL (0.6-4.6); Lymphocytes % 12.3 %; Mean Corpuscular HGB Conc 35.4 g/dL (31.6-35.5); Mean Corpuscular Hemoglobin 31.3 pg (28.0-33.3); Mean Corpuscular Volume 88.7 fL (83.0-100.0); Mean Platelet Volume 12.3 fL (9.4-12.4); Monocytes % 9.4 %; Neutrophils # 8.1 K/mcL (1.6-8.9); Platelet Count 202 K/mcL (140-400); Red Blood Count 3.35 M/mcL (4.19-5.50); Red Cell Distribution Width 12.8 % (11.5-14.5)
[2017-12-20] MEDS: Piperacillin/Tazobactam 3.375 GM in 0.9 % Sodium Chloride Mini Bag 100 ML IVPB SCH ×3 (04:59→20:59)
[2017-12-20] MEDS: Insulin LISPRO 300 UNITS/3 ML VIAL SQ SCH ×4 (07:06→21:23)
[2017-12-20] MEDS: *HR* Heparin 5,000 UNIT/ML VIAL SQ SCH ×2 (07:06→16:08)
[2017-12-20] MEDS: Aspirin Enteric Coated 81 MG Tablet PO SCH (07:06)
[2017-12-20] MEDS ORDERED: Aminoglycoside Consult 1 EACH MC ONE (08:22)
--- NOTE | 2017-12-20 10:09 | Anesthesia Evaluation PreOp ---
Date of Encounter: 12/20/17 Time of Encounter: 10:05 - Past History Planned Operation: I and D Left Foot Cardiac History: HTN, Hyperlipidemia, Cardiac Stent, Other (PVD) Pulmonary History: Smoker, COPD LAB CLERK History: Other (Diabetic Neuropathy) Other Medical History: Renal (CKD), Diabetes Type II, GERD Anesthesia History: No Prior Anesthetic Complications Alcohol Use: none Drug use: none Medications and Allergies Furosemide [Lasix] 40 mg PO DAILY #30 tablet 11/10/15 [Rx] Lisinopril [Zestril] 10 mg PO DAILY #30 tablet 11/10/15 [Rx] Metformin HCl [Metformin HCl ER] 1,000 mg PO BID 01/04/16 [History] Amitriptyline [Elavil] 25 mg PO HS 03/16/17 [History] Aspirin [Lo-Dose Aspirin EC] 81 mg PO DAILY 12/17/17 [History] Insulin NPH Human Isophane [Novolin N] 15 unit SQ BID 12/17/17 [History] Lovastatin [Mevacor] 40 mg PO HS 12/17/17 [History] Metoprolol Tartrate [Lopressor] 50 mg PO BID 12/17/17 [History] 3 Allergy/AdvReac Type Severity Reaction Status Date / Time No Known Allergies Allergy Verified 12/17/17 21:55 - Meds/Allergy Pre-op Review Medications Reviewed: Yes Allergies Reviewed: Yes Beta Blockers on Current Med List: Yes (Metoprolol today 0749) Anesthesia Results - Labs 12/20/17 01:40 12/20/17 01:40 - Imaging EKG: report reviewed (Sinus Tach) Additional studies: ECHO 2016 EF 55% Anesthesia Exam O2 Sat O2 Sat by Pulse Oximetry 96 O2 Sat by Pulse Oximetry 93 O2 Sat by Pulse Oximetry 94 O2 Sat by Pulse Oximetry 95 O2 Sat by Pulse Oximetry 95 O2 Sat by Pulse Oximetry 96 O2 Sat by Pulse Oximetry 97 Vital Signs Temp Pulse Resp BP Pulse Ox 100.0 F H 110 18 92/58 97 12/17/17 19:51 12/17/17 19:51 12/17/17 19:51 12/17/17 19:51 12/17/17 19:51 Height: 5'8 Weight: 263 lbs NPO (# of Hours): [place] Pain Scale: 0 - HEENT Pupil (Motor): Pupils equal, EOMI Mallampati: III Oral Opening: Greater than 3 - LAB CLERK LOC: Oriented LAB CLERK Motor: Normal RUE, Normal LUE, Normal RLE, Normal LLE, Normal Face LAB CLERK Sensory: Normal: RUE, LUE, Face, Deficit: RLE, LLE (paresthesia) - Cardiac Rhythm: Regular Murmur: None JVD: No Carotid Bruit: No - Pulmonary Breath Sounds: bilateral Clear Respiratory Effort: Symmetrical Anesthesia Assess/Plan ASA Score: 3 (CAD PVD DM Neuropathy) Modified [place] Scale for Level of Consciousness: Cooperative, oriented, and tranquil Anesthetic Plan: MAC Monitoring Plan: Standard Monitors Recovery Plan: Other (Discussed MAC, possible GA, agrees to proceed)
[2017-12-20] MEDS ORDERED: Famotidine 20 MG/2 ML VIAL ONE (11:01)
[2017-12-20] MEDS ORDERED: Acetaminophen IV 1,000 MG/100 ML INFUS..BTL ONE (11:01)
--- NOTE | 2017-12-20 11:11 | Podiatry Progress Note ---
Date of Encounter: 12/20/17 Time of Encounter: 08:08 - Assessment and Plan (1) Puncture wound Current Visit: Yes Status: Acute Patient was instructed he needs to undergo an incision and drainage of the first interspace of the left foot. Patient was agreeable and is planning on surgical intervention.Patient was informed of the risks and complications of surgery. These may include but are not limited to the following; nerve damage, numbness, tingling, RSD/CRPS, loss of motor function, loss of toe, loss of limb , loss of life, ischemia, wound healing issues, infection, scarring, keloid formation, continued pain, arthritis, non-union, mal-union, prominent hardware, displaced hardware, reaction to hardware, the need to remove hardware, bruising , continued limp, the need for future surgery, over correction, under correction , chronic swelling, the need for physical therapy, stiffness of joints, ulceration, slow healing, wound dehiscence, reaction to implant, reaction to sutures. The patient was informed of the possible conservative treatments available which may include but are not limited to the following: Orthotics, bracing, non -weight bearing, physical therapy, padding, taping, steroid injections, NSAIDS, casting. The patient was given the option to seek a second opinion. It was explained that surgery is an art and not an exact science therefore results cannot be guaranteed. All the patients questions and concerns were addressed. Patient agrees to have the surgery despite the possible risks and complications. Absolutely no guarantees were given or implied. Patient was instructed that unless he controls his diabetes better it is unlikely that this wound will heal and will continue to get worse resulting in amputation. Patient related understanding. Patient was also instructed that if he continues smoking that it will significantly impair his ability to heal and it may also result in amputation of a digit, foot, or leg. Patient relates understanding. Subjective Principal diagnosis: Left foot infection Interval history: Patient relates that he stepped on a nail and his foot became infected. Patient relates that he thought it would get better but it seemed to get worse and worse. Patient relates that since he has been has felt better. Objective - Vital Signs Vital Signs: Vital Signs Temp Pulse Resp BP Pulse Ox 12/20/17 10:21 168/97 12/20/17 10:20 168/97 12/20/17 07:52 97.8 F 85 17 174/96 96 12/20/17 05:06 98.3 F 93 14 159/94 93 12/20/17 01:38 97 144/73 12/20/17 00:17 100.9 F H 12/20/17 00:12 101.8 F H 105 14 186/104 94 12/19/17 20:00 95 12/19/17 19:50 98.6 F 101 17 174/97 95 12/19/17 16:11 98.6 F 91 16 177/79 96 12/19/17 11:43 98.5 F 88 16 156/85 97 Intake and Output 12/19/17 12/20/17 12/20/17 23:59 07:59 15:59 Intake Total 450 / 450 100 / 100 100 / 100 Output Total 825 / 825 Balance -375 / -375 100 / 100 100 / 100 Intake: IV Fluids 250 / 250 100 / 100 100 / 100 Zosyn 3.375 GM In 0.9 % Sodium 100 / 100 100 / 100 Chloride (Mini-Bag +) 100 ML @ 25 mls/hr IVPB Q8H JORDY Rx#: [id number] Vancocin 1,500 MG In 0.9 % 250 / 250 Sodium Chloride 250 ML @ 166.67 mls/hr IVPB Q24H JORDY Rx#: [id number] Oral 200 / 200 Output: Urine 825 / 825 Other: Stool Size Moderate Stool Consistency soft formed Stool Characteristics Normal for Patient Stool Color Brown # Voids 1 Blood Glucose* 249 83 - Exam Exam: Left foot cellulitis abscess noted at the first interspace of the left foot. Cellulitis extends up to the ankle. A small wound on the plantar aspect of the first interspace and along the dorsal aspect there is a bullous lesion. Pedal pulses are faintly palpable 1/4 likely secondary to the significant edema. Sensation diminished consistent with peripheral neuropathy. Pain with range of motion the ankle but limited pain in the area of the abscess secondary to peripheral neuropathy. Radiographs are relatively unremarkable. - Lab Result Diagrams: 12/20/17 01:40 12/20/17 01:40 Labs: Abnormal lab results RBC 3.35 M/mcL (4.19-5.50) L 12/20/17 01:40 Hgb 10.5 g/dL (12.9-16.9) L 12/20/17 01:40 Hct 29.7 % (37.5-50.1) L 12/20/17 01:40 BUN 22 mg/dL (6-20) H 12/20/17 01:40 Creatinine 1.49 mg/dL (0.70-1.30) H 12/20/17 01:40 Est GFR (Non-Af Amer) 50 (> 60) L 12/20/17 01:40 Hemoglobin A1c 9.5 % (-5.6) H 12/17/17 20:13 Calcium 8.2 mg/dL (8.6-10.3) L 12/20/17 01:40 Phosphorus 2.4 mg/dL (2.7-4.5) L 12/20/17 01:40 Microbiology, Last 48 Hours 12/18/17 17:19 Wound Culture - Final Left Foot Staphylococcus aureus Consult Discharge Plan - Plan Referrals: Babak Lamas DO [Primary Care Provider] -
[2017-12-20] MEDS ORDERED: Bupivacaine/Clonidine Syringe 1 EACH SYRINGE ONE (11:18)
[2017-12-20] MEDS ORDERED: *HR* FentaNYL (PF) 100 MCG/2 ML VIAL ONE (11:43)
[2017-12-20] MEDS ORDERED: *HR* Propofol 200 MG/20 ML VIAL IVP ONE (11:43)
[2017-12-20] MEDS ORDERED: *HR* Midazolam HCl 2 MG/2 ML VIAL ONE (11:43)
--- NOTE | 2017-12-20 12:37 | Anesthesia Evaluation Post Op ---
Date of Encounter: 12/20/17 Time of Encounter: 12:35 - Vital Signs Vital Signs: 3 Vital Signs Time 1236 BP 150/98 Pulse 84 Resp 20 O2 Sat 97 - Lungs Lungs: Clear Ascult./Percussion - Airway Airway: Non-obstructed - Cardiovascular Regular Rate - Mental Status Mental Status: Alert & Oriented, Answers Appropriately - Pain Pain Scale: 0 - Nausea Vomiting Nausea Vomiting: Not Present - Hydration Hydration: NPO, Has not voided - Discharge PostOp Status: Transfer Patient to floor
--- NOTE | 2017-12-20 13:17 | Operative Note ---
Date of procedure: 12/20/17 Pre-op diagnosis: Infection left foot first interspace Post-op diagnosis: same Procedure: Incision and drainage left foot, first interspace with debridement and biopsy. Implants: Iodoform gauze Complications: None Anesthesia: MAC Surgeon: Kalen Kimble Was there an financial services assistant present: No Estimated blood loss (cc): 10 Specimen: Cultures obtained Procedure in Detail: The patient was administered IV antibiotics. The patient was transported to the operative room and placed on operating table. Following anesthesia the extremity was scrubbed prepped and draped in the usual aseptic fashion. A timeout was performed. An incision was made and deepened through subcutaneous tissue with care taken to identify and retract all vital neurovascular structures. The incision was made and after inspecting the tissue it was apparent that the incision needed to be made along the interspace of the left foot first interspace. The incision was made longitudinally and created a wound approximately 4 cm in length from the dorsal aspect of the foot along the first interspace to the plantar aspect of the foot. There is noted to be significant purulence and necrotic tissue. The necrotic tissue is debrided. The debridement included dermis, epidermis, subcutaneous, fascia. There is noted to be purulence in contact with the bone raising concerns for early osteomyelitis. No weak bone or damaged bone consistent with chronic osteomyelitis was noted. The bone seemed to be in good condition. The incision site was irrigated with copious amounts of normal saline and packed with iodoform gauze packing, 4 x 4's, Vivienne.. The patient tolerated the procedure and anesthesia well and was transported to the recovery room with vital signs stable and vascular status intact to both feet. The patient will require long-term IV antibiotics which will likely need to be managed by infectious disease. The patient will need another washout within the next 3-7 days. The patient may need to have a wound VAC applied. The patient will remain nonweightbearing.
--- NOTE | 2017-12-20 16:46 | Internal Med Progress Note ---
Date of Encounter: 12/20/17 Time of Encounter: 16:46 - Assessment and plan (1) Severe sepsis Current Visit: Yes Status: Acute Assessment and plan: 3 SIRS criteria on admission: Fever, tachycardia, leukocytosis, Randy suspected source of infection: left lower extremity cellulitis - left foot CT showed severe cellulitis of the left foot, left ankle without discrete agonized fluid collection, no acute fracture or gross dislocation, no aggressive osseous destruction, no obvious foreign body identified. - In the emergency department, patient received 2 fluid boluses with appropriate increase in blood pressure. He also received one dose vancomycin, one dose Zosyn, one dose ciprofloxacin. Leukocytosis resolved, tachycardia resolved. Still had fever Tmax 101.8 F overnight Blood cultures NGTD Wound cultures: MSSA - will DC Vanc Cotinue Zosyn, DC Vancomycin Consult ID (2) Cellulitis Current Visit: No Status: Acute Assessment and plan: Plan as above Qualifiers: Site of cellulitis: extremity Site of cellulitis of extremity: lower extremity Laterality: left Qualified Code(s): L03.116 - Cellulitis of left lower limb (3) RANDY (acute kidney injury) Current Visit: Yes Status: Acute Assessment and plan: Likely secondary to sepsis and IV contrast - Patient received 2 fluid boluses in the ED. - Hold furosemide and Lisinopril - Renally dose medications - avoid all nephrotoxic agents. - discontinue vancomycin since wound culture shows MSSA (4) Ischemic cardiomyopathy Current Visit: No Status: Acute (5) CAD in [place] artery Current Visit: No Status: Acute Assessment and plan: Continue aspirin, Statin, beta shira (6) Diabetes mellitus, type II, insulin dependent Current Visit: Yes Status: Chronic Assessment and plan: History of uncontrolled type II diabetes continue basal and medium dose sliding scale insulin - weight based and adjust as needed ADA diet Currently ranging 80s-195. Goal inpatient setting is >180. (7) HLD (hyperlipidemia) Current Visit: No Status: Chronic Assessment and plan: Continue home Statin Qualifiers: Hyperlipidemia type: pure hypercholesterolemia Qualified Code(s): E78.00 - Pure hypercholesterolemia, unspecified; E78.0 - Pure hypercholesterolemia (8) HTN (hypertension) Current Visit: No Status: Chronic Assessment and plan: Continue home beta shira, hold lisinopril due to renal function - hydralazine IV prn - start Norvasc for now until renal function improves then will restart lisinopril. Qualifiers: Hypertension type: essential hypertension Qualified Code(s): I10 - Essential (primary) hypertension (9) DVT prophylaxis Current Visit: No Status: Acute Assessment and plan: Heparin SQ - Time Spent With Patient Total time spent is greater than 50% in coordination of care (as documented) at patient's floor/unit and/or counseling patient: - Subjective Interval history: No acute events. No complaints today. Had I&D today of left foot puncture wound. - Constitutional Vitals: Temp Pulse Resp BP Pulse Ox 97.4 F L 100 17 203/145 94 12/20/17 16:28 12/20/17 16:28 12/20/17 16:28 12/20/17 16:28 12/20/17 16:28 General appearance: Present: A&O X 3, pleasant, no acute distress, answers questions appropriately Exam: - Head Head exam: Present: atraumatic, normocephalic - Eye Eye exam: Present: PERRL, conjuntiva pink, sclera anicteric Pupils: Present: PERRL - Neck Neck exam general surgery: Present: supple, trachea midline. Absent: lymphadenopathy - Respiratory Respiratory exam: Present: CTAB. Absent: accessory muscle use, rales, rhonchi, wheezes - Cardiovascular Cardiovascular exam: Present: RRR, +S1, +S2. Absent: diastolic murmur, gallop, rubs, systolic murmur - GI/Abdominal GI/Abdominal exam: Present: normal bowel sounds, soft, no peritoneal signs. Absent: distended, tenderness - Extremities Exam Extremities exam: Present: pedal edema, warm, radial pulses palpable and symmetrical. Absent: calf tenderness, cyanotic Additional comments: Left foot edematous with erythema. Covered in dressing, c/d/i - Neurological Exam Neurological exam: Present: CN II-XII intact, oriented X3, no focal deficits. Absent: pronater drift, facial droop, speech deficit - Skin Skin exam: Present: dry, intact Internal Medicine: Result - Labs CBC & Chem 7: 12/20/17 01:40 12/20/17 01:40 Labs: Short CBC 12/20/17 Range/Units 01:40 WBC 11.0 (4.3-11.1) K/mcL Hgb 10.5 L (12.9-16.9) g/dL Hct 29.7 L (37.5-50.1) % Plt Count 202 (140-400) K/mcL Neutrophils # 8.1 (1.6-8.9) K/mcL BMP 12/20/17 01:40 Sodium 136 Potassium 3.9 Chloride 105 Carbon Dioxide 24 BUN 22 H Creatinine 1.49 H Glucose 86 Calcium 8.2 L Consult Discharge Plan - Plan Referrals: Babak Laams DO [Primary Care Provider] -
[2017-12-20] MEDS: amLODIPine 5 MG TABLET PO SCH (17:14)
[2017-12-20 18:23] LABS: ABG Base Excess 0 mEq/L (-2 to 3); ABG HCO3 24 mEq/L (21-27); ABG Oxygen Saturation 95 % (95-98); ABG PCO2 33 mmHg (35-45); ABG PH 7.46 pH Units (7.32-7.45); ABG PO2 70 mmHg (85-104); ABG TCO2 25 mEq/L (20-26)
[2017-12-20] MEDS ORDERED: *HR* Metoprolol 5 MG/5 ML VIAL IVP STA (18:38)
[2017-12-20 18:44] LABS: Basophils # 0.1 K/mcL (0.0-0.2); Basophils % 0.6 %; Eosinophils # 0.2 K/mcL (0.0-0.6); Eosinophils % 1.9 %; Hematocrit 33.4 % (37.5-50.1); Hemoglobin 11.8 g/dL (12.9-16.9); Immature Granulocytes % 2.2 % (0-4); Lymphocytes # 1.1 K/mcL (0.6-4.6); Lymphocytes % 10.6 %; Mean Corpuscular HGB Conc 35.3 g/dL (31.6-35.5); Mean Corpuscular Hemoglobin 31.2 pg (28.0-33.3); Mean Corpuscular Volume 88.4 fL (83.0-100.0); Mean Platelet Volume 11.8 fL (9.4-12.4); Monocytes # 0.8 K/mcL (0.0-1.3); Monocytes % 7.6 %; Neutrophils # 8.1 K/mcL (1.6-8.9); Platelet Count 233 K/mcL (140-400); Red Blood Count 3.78 M/mcL (4.19-5.50); Segmented Neutrophils % 77.1 %
[2017-12-20] MEDS: *HR* HYDROcodone/Acet 5/325 mg TABLET PO PRN (18:47)
[2017-12-20] MEDS ORDERED: Heparin 25,000 UNIT/500 ML D5W 25,000 UNIT/500 ML BAG IVC SCH (19:00)
[2017-12-20] MEDS ORDERED: Aspirin 325 MG TABLET PO ONE (19:17)
[2017-12-20] MEDS ORDERED: *HR* Heparin 5,000 UNIT/ML VIAL IVP PRN (19:25)
[2017-12-20 19:59] LABS: Hematocrit 32.8 % (37.5-50.1); Hemoglobin 11.5 g/dL (12.9-16.9); Mean Corpuscular HGB Conc 35.1 g/dL (31.6-35.5); Mean Corpuscular Volume 88.4 fL (83.0-100.0); Mean Platelet Volume 11.5 fL (9.4-12.4); Platelet Count 233 K/mcL (140-400); Red Blood Count 3.71 M/mcL (4.19-5.50)
[2017-12-20] MEDS ORDERED: 0.9 % Sodium Chloride 1,000 ML ONE (20:03)
[2017-12-20] MEDS ORDERED: *HR* Labetalol 20 MG/4 ML SYRINGE IVP STA (20:04)
[2017-12-20 20:05] LABS: INR 1.1; Prothrombin Time 11.8 Seconds (9.4-12.1)
[2017-12-20] MEDS ORDERED: 0.9 % Sodium Chloride 1,000 ML IVC ONE (20:05)
[2017-12-20 20:08] LABS: Activated Partial Thrombo Time 30.2 Seconds (26.0-36.0)
[2017-12-20 20:10] LABS: BUN/Creatinine Ratio 14 (6-26); Blood Urea Nitrogen 18 mg/dL (6-20); Calcium 8.3 mg/dL (8.6-10.3); Carbon Dioxide 21 mEq/L (23-29); Chloride 104 mEq/L (98-107); Glucose 271 mg/dL (70-105); Osmolality,Calculated 291 (280-300); Potassium 4.2 mEq/L (3.5-5.1); Sodium 135 mEq/L (136-145); Troponin I 0.25 ng/mL (< 0.04); eGFR For African Americans > 60 (> 60); eGFR For Non-African Americans 58 (> 60)
--- NOTE | 2017-12-20 20:17 | Event Note ---
Date of Encounter: 12/20/17 Time of Encounter: 20:13 Called to see patient for tachycardia, SOB, and mottling reported by RN. I saw patient once he arrived to [facility]. He has some mottling in his BLE but minimal to none on his torso. Per RN, mottling much improved. Earlier, he was very tachycardic (HR 140-150's w Aflutter/RVR). He is now sinus tachycardia (HR 120' s). He has no SOB now and no more chest pain. Troponin is + at 0.25. Heparin drip ordered. I ordered 1 liter NS bolus and broadened antibiotics for concerns of sepsis. He feels better than 1 hour ago. I reviewed his ABG and lactate from 18:30. I and Dr. Lamas will reassess later and adjust treatment as necessary. Discussed with RN.
[2017-12-20] MEDS: Heparin 25,000 UNIT/500 ML D5W 25,000 UNIT/500 ML BAG IVC SCH (20:29)
[2017-12-20] MEDS ORDERED: *HR* Heparin 5,000 UNIT/ML VIAL IVP ONE (20:49)
[2017-12-20] MEDS: 0.9 % Sodium Chloride 1,000 ML IVC SCH (21:30)
[2017-12-20] MEDS ORDERED: *HR* LORazepam 0.5 MG TABLET PO ONE (21:37)
[2017-12-20] MEDS: Insulin DETEMIR 100 UNIT/ML X5UNITS SQ SCH (22:34)
[2017-12-21 00:53] LABS: Basophils # 0.1 K/mcL (0.0-0.2); Basophils % 0.6 %; Eosinophils # 0.2 K/mcL (0.0-0.6); Eosinophils % 1.5 %; Hematocrit 29.4 % (37.5-50.1); Hemoglobin 10.2 g/dL (12.9-16.9); Immature Granulocytes % 2.3 % (0-4); Lymphocytes # 1.3 K/mcL (0.6-4.6); Lymphocytes % 13.2 %; Mean Corpuscular HGB Conc 34.7 g/dL (31.6-35.5); Mean Corpuscular Hemoglobin 31.2 pg (28.0-33.3); Mean Corpuscular Volume 89.9 fL (83.0-100.0); Mean Platelet Volume 11.7 fL (9.4-12.4); Monocytes # 0.9 K/mcL (0.0-1.3); Monocytes % 8.7 %; Neutrophils # 7.4 K/mcL (1.6-8.9); Platelet Count 213 K/mcL (140-400); Red Blood Count 3.27 M/mcL (4.19-5.50); Segmented Neutrophils % 73.7 %
[2017-12-21 01:08] LABS: BUN/Creatinine Ratio 15 (6-26); Blood Urea Nitrogen 20 mg/dL (6-20); Calcium 7.8 mg/dL (8.6-10.3); Carbon Dioxide 23 mEq/L (23-29); Chloride 107 mEq/L (98-107); Glucose 238 mg/dL (70-105); Magnesium 1.8 mg/dL (1.6-2.6); Osmolality,Calculated 294 (280-300); Phosphorous 3.2 mg/dL (2.7-4.5); Potassium 4.1 mEq/L (3.5-5.1); Sodium 137 mEq/L (136-145); eGFR For African Americans > 60 (> 60); eGFR For Non-African Americans 59 (> 60)
[2017-12-21] MEDS: Levofloxacin 750 MG/150 ML 750 MG/150 ML BAG IVPB SCH ×2 (01:20→08:44)
[2017-12-21] MEDS ORDERED: Melatonin 3 MG TABLET PO ONE (01:41)
[2017-12-21] MEDS: Piperacillin/Tazobactam 3.375 GM in 0.9 % Sodium Chloride Mini Bag 100 ML IVPB SCH ×3 (03:25→21:19)
[2017-12-21] MEDS: *HR* Heparin 5,000 UNIT/ML VIAL IVP PRN ×2 (05:27→12:52)
[2017-12-21] MEDS: 0.9 % Sodium Chloride 1,000 ML IVC SCH (05:28)
[2017-12-21] MEDS: amLODIPine 5 MG TABLET PO SCH (08:44)
[2017-12-21] MEDS: Aspirin Enteric Coated 81 MG Tablet PO SCH (08:44)
[2017-12-21] MEDS: Insulin LISPRO 300 UNITS/3 ML VIAL SQ SCH ×3 (08:45→21:25)
--- NOTE | 2017-12-21 08:49 | Internal Med Progress Note ---
Date of Encounter: 12/21/17 Time of Encounter: 08:45 - Assessment and plan (1) Severe sepsis Current Visit: Yes Status: Acute Assessment and plan: 3 SIRS criteria on admission: Fever, tachycardia, leukocytosis, Randy suspected source of infection: left lower extremity cellulitis - left foot CT showed severe cellulitis of the left foot, left ankle without discrete agonized fluid collection, no acute fracture or gross dislocation, no aggressive osseous destruction, no obvious foreign body identified. - In the emergency department, patient received 2 fluid boluses with appropriate increase in blood pressure. He also received one dose vancomycin, one dose Zosyn, one dose ciprofloxacin. Leukocytosis resolved, tachycardia resolved. Still had fever Tmax 101.8 F overnight Blood cultures NGTD Wound cultures: MSSA - will DC Vanc Cotinue Zosyn, added Levaquin since patient has had persisted fevers - Follow-up repeat cultures - first set are negative but patient had continued fevers Fluids were started overnight, hold IV fluids for now to avoid fluid overload in HF patient. Consult ID - Services available tomorrow. (2) Elevated troponin Current Visit: No Status: Acute Assessment and plan: Continue Heparin drip Cardiology consulted, recommendations appreciated. (3) Atrial flutter with rapid ventricular response Current Visit: Yes Status: Acute Assessment and plan: - Likely caused by severe sepsis. - Was not started on Cardizem due to previous Echo seen with EF 30% in 2016. Currently has Lopressor IV prn. HR now running 90s-105 bpm - TSH, T4 wnl - Echocardiogram pending - Cardiology consulted recommendations appreciated (4) Cellulitis Current Visit: No Status: Acute Assessment and plan: Plan as above Qualifiers: Site of cellulitis: extremity Site of cellulitis of extremity: lower extremity Laterality: left Qualified Code(s): L03.116 - Cellulitis of left lower limb (5) RANDY (acute kidney injury) Current Visit: Yes Status: Resolved Assessment and plan: Likely secondary to sepsis and IV contrast - Patient received 2 fluid boluses in the ED. - Hold furosemide and Lisinopril - Renally dose medications - avoid all nephrotoxic agents. - discontinue vancomycin since wound culture shows MSSA (6) Ischemic cardiomyopathy Current Visit: No Status: Acute (7) CAD in [place] artery Current Visit: No Status: Acute Assessment and plan: Continue aspirin, Statin, beta shira (8) Diabetes mellitus, type II, insulin dependent Current Visit: Yes Status: Chronic Assessment and plan: History of uncontrolled type II diabetes continue basal and medium dose sliding scale insulin - weight based and adjust as needed ADA diet Currently ranging 80s-195. Goal inpatient setting is >180. (9) HLD (hyperlipidemia) Current Visit: No Status: Chronic Assessment and plan: Continue home Statin Qualifiers: Hyperlipidemia type: pure hypercholesterolemia Qualified Code(s): E78.00 - Pure hypercholesterolemia, unspecified; E78.0 - Pure hypercholesterolemia (10) HTN (hypertension) Current Visit: No Status: Chronic Assessment and plan: Continue home beta shira, hold lisinopril due to renal function - hydralazine IV prn - start Norvasc for now until renal function improves then will restart lisinopril. Qualifiers: Hypertension type: essential hypertension Qualified Code(s): I10 - Essential (primary) hypertension (11) Heart failure Current Visit: Yes Status: Acute Assessment and plan: Echocardiogram 11/2015: LVEF 30-35% Echocardiogram 07/2016: LVEF: 55% hypokinesis of inferolateral wall No acute decompensation He required IV fluids on admission for severe sepsis with hypotension. He required IV fluids overnight for concern for sepsis. Vitals are more stable this morning so will hold IV fluids now to monitor and avoid fluid overload. - Continue lisinopril (renal function improved.) - Echocardiogram pending Qualifiers: Heart failure type: combined systolic and diastolic Heart failure chronicity: chronic Qualified Code(s): I50.42 - Chronic combined systolic ( congestive) and diastolic (congestive) heart failure (12) DVT prophylaxis Current Visit: No Status: Acute Assessment and plan: Currently on heparin drip - Time Spent With Patient Total time spent is greater than 50% in coordination of care (as documented) at patient's floor/unit and/or counseling patient: - Subjective Interval history: Patient had episode of tachycardia and hypertension yesterday evening. EKG showed atrial fluter with RVR, and with lopressor repeat EKG showed sinus tachycardia. Patient had dyspnea, denied chest pain. After a moment he stated that he felt like he was having same feelings as his heart attack in the past. He also complained of fevers. He was started on Heparin drip. This morning patient heart rate fluctuating from 90s-105 bpm, SBP now staying in 160s. He was anxious requiring Ativan. He did have an episode of fever with Tmax of 101.6 F and antibiotics were broadened to Levaquin/Zosyn. - Constitutional Vitals: Temp Pulse Resp BP Pulse Ox 97.4 F L 96 16 168/91 91 12/21/17 07:39 12/21/17 07:39 12/21/17 07:39 12/21/17 07:39 12/21/17 07:39 General appearance: Present: A&O X 3, pleasant, no acute distress, answers questions appropriately - Head Head exam: Present: atraumatic, normocephalic - Respiratory Respiratory exam: Present: CTAB. Absent: accessory muscle use, rales, rhonchi, wheezes - Cardiovascular Cardiovascular exam: Present: RRR - Extremities Exam Extremities exam: Present: pedal edema. Absent: mottling Additional comments: Erythema of left leg is improving. Dressing on foot is clean, limited exam. Internal Medicine: Result - Labs CBC & Chem 7: 12/21/17 00:36 12/21/17 00:36 Labs: Short CBC 12/20/17 12/20/17 12/21/17 Range/Units 18:28 19:44 00:36 WBC 10.5 11.8 H 10.0 (4.3-11.1) K/mcL Hgb 11.8 L 11.5 L 10.2 L (12.9-16.9) g/dL Hct 33.4 L 32.8 L 29.4 L (37.5-50.1) % Plt Count 233 233 213 (140-400) K/mcL Neutrophils # 8.1 7.4 (1.6-8.9) K/mcL BMP 12/20/17 12/21/17 18:28 00:36 Sodium 135 L 137 Potassium 4.2 4.1 Chloride 104 107 Carbon Dioxide 21 L 23 BUN 18 20 Creatinine 1.31 H 1.30 Glucose 271 H 238 H Calcium 8.3 L 7.8 L Cardiac Enzymes 12/20/17 12/21/17 12/21/17 Range/Units 18:28 00:36 06:28 Troponin I 0.25 H* 0.31 H* 0.33 H* (< 0.04) ng/mL - ABG Interpretation ABG results: ABG ABG pH 7.46 pH Units (7.32-7.45) H 12/20/17 18:20 ABG pCO2 33 mmHg (35-45) L 12/20/17 18:20 ABG pO2 70 mmHg (85-104) L 12/20/17 18:20 ABG O2 Saturation 95 % (95-98) 12/20/17 18:20 PT/INR, D-dimer PT 11.8 Seconds (9.4-12.1) 12/20/17 19:44 - Impressions Impressions Chest X-Ray 12/20/17 18:10 IMPRESSION: No acute abnormality. D/ / Noel Robertson MD / Noel Robertson MD Interpreting Provider: Noel Robertson MD Consult Discharge Plan - Plan Referrals: Babak Lamas DO [Primary Care Provider] -
--- NOTE | 2017-12-21 10:23 | Cardiology Consult Note ---
Date of Encounter: 12/21/17 Time of Encounter: 10:00 Assessment and Plan (1) Elevated troponin Current Visit: No Status: Acute Likely demand ischemia from sepsis/RANDY. He denies angina and no acute EKG changes. TTE to assess EF/WMA. If stable, will medically treat, otherwise plan on [facility] Friday afternoon. (2) CAD in [place] artery Current Visit: No Status: Acute Stable, continue medical management Discussion w patient/family: The assessment and plan as outlined above was discussed with the patient and/or family members who expressed understanding and agreement. All questions were answered. Thank you for involving us in the care of your patient. Please call with any questions. History of Present Illness Consult date: 12/21/17 Consult reason: elevated troponin Chief complaint: left foot pain History of present illness: Mr. Vargas is a 47 year old male with history of CAD sp IN and PCI presents with progressive left foot pain / infection after stepping on a nail. He had ID and on broad spectrum antibiotics for sepsis. He notes no chest discomfort reminiscent of his previous angina and recently has been active without angina. He notes some skin discoloration intermittently (lacy/splotchy) and malaise. Past Med Surg Social Fam HX - Past Medical History Medical history: CHF, COPD, coronary artery disease, diabetes, GERD, hyperlipidemia, myocardial infarction Psychiatric history: no psych history - Past Surgical History Surgical History: angioplasty/stent - Social History Smoking Status: Former smoker Smokeless Tobacco Status: No Alcohol use: none Drug use: none - Family History Father History Unknown: Yes Family Member Ethnicity: Non- Living Status: Hx Family Cardiac Disorders: Yes (HTN) Hx Family Endocrine Disorder: Yes (DM) Sister History Unknown: Yes Family Member Ethnicity: Non- Living Status: Still Living Hx Family Endocrine Disorder: Yes (DM) Brother History Unknown: Yes Family Member Ethnicity: Non- Living Status: Still Living Hx Family Cardiac Disorders: Yes (IN Age 50) Hx Family Endocrine Disorder: Yes (DM) Mother History Unknown: Yes Family Member Ethnicity: Non- Living Status: Hx Family Cardiac Disorders: Yes (HD) Hx Family Endocrine Disorder: Yes (DM) Medications and Allergies Furosemide [Lasix] 40 mg PO DAILY #30 tablet 11/10/15 [Rx] Lisinopril [Zestril] 10 mg PO DAILY #30 tablet 11/10/15 [Rx] Metformin HCl [Metformin HCl ER] 1,000 mg PO BID 01/04/16 [History] Amitriptyline [Elavil] 25 mg PO HS 03/16/17 [History] Aspirin [Lo-Dose Aspirin EC] 81 mg PO DAILY 12/17/17 [History] Insulin NPH Human Isophane [Novolin N] 15 unit SQ BID 12/17/17 [History] Lovastatin [Mevacor] 40 mg PO HS 12/17/17 [History] Metoprolol Tartrate [Lopressor] 50 mg PO BID 12/17/17 [History] 3 Allergy/AdvReac Type Severity Reaction Status Date / Time No Known Allergies Allergy Verified 12/17/17 21:55 All Systems Review: The remainder of the systems were reviewed and are negative - Constitutional Constitutional: chills, malaise, no night sweats - EENT Eyes: no blurred vision, no loss of vision - Cardiovascular Cardiovascular: no chest pain at rest, no chest pain with exertion - Respiratory Respiratory: no hemoptysis, no wheezing - Gastrointestinal Gastrointestinal: no hematemesis, no hematochezia - Genitourinary Genitourinary: no hematuria, no nocturia - Musculoskeletal Musculoskeletal: abnormal gait, no arthralgias - Integumentary Integumentary: no rash, no unusual bruising - Neurological Neurological: no loss of vision, no syncope - Psychiatric Psychiatric: no hallucinations, no panic attacks - Hematological/Lymphatic Hematologic/Lymphatic: no easy bleeding, no easy bruising Physical Examination Vital Signs, Last 4 Hours Temp Pulse Resp BP Pulse Ox 12/21/17 07:39 97.4 F L 96 16 168/91 91 General: Conversant HEENT: Atraumatic Neck: No JVD Cardiac: Reg Rate and Rhythm Lungs: Normal Breath Sounds Neuro: Alert and responsive Abdomen: Soft Skin: Other (left foot bandaged) Musculoskeletal: No Chest Wall Tenderness Extremities: No Edema Results 12/21/17 00:36 12/21/17 00:36 Lab Results 12/20/17 12/20/17 12/20/17 18:28 18:28 19:44 WBC 10.5 Hgb 11.8 L Hct 33.4 L Plt Count 233 INR APTT 30.6 Sodium 135 L Potassium 4.2 Chloride 104 Carbon Dioxide 21 L BUN 18 Creatinine 1.31 H Glucose 271 H Calcium 8.3 L Magnesium Troponin I 0.25 H* 12/20/17 12/20/17 12/21/17 19:44 19:44 00:36 WBC 11.8 H Hgb 11.5 L Hct 32.8 L Plt Count 233 INR 1.1 APTT 30.2 Sodium Potassium Chloride Carbon Dioxide BUN Creatinine Glucose Calcium Magnesium Troponin I 0.31 H* 12/21/17 12/21/17 12/21/17 00:36 00:36 00:36 WBC 10.0 Hgb 10.2 L Hct 29.4 L Plt Count 213 INR APTT Sodium 137 Potassium 4.1 Chloride 107 Carbon Dioxide 23 BUN 20 Creatinine 1.30 Glucose 238 H Calcium 7.8 L Magnesium 1.8 Troponin I 12/21/17 12/21/17 02:42 06:28 WBC Hgb Hct Plt Count INR APTT 33.3 Sodium Potassium Chloride Carbon Dioxide BUN Creatinine Glucose Calcium Magnesium Troponin I 0.33 H* - EKG Interpretation EKG results cardiology: personally reviewed, no diagnostic ischemia Consult Discharge Plan - Plan Referrals: Babak Lamas DO [Primary Care Provider] -
[2017-12-21] MEDS ORDERED: Perflutren Lipid Microsphere 1.3 ML in 0.9 % Sodium Chloride 8.7 ML IVP ONE (12:40)
[2017-12-21] MEDS: Heparin 25,000 UNIT/500 ML D5W 25,000 UNIT/500 ML BAG IVC SCH (16:35)
[2017-12-21] MEDS: *HR* LORazepam 2 MG/ML VIAL IVP PRN (21:47)
--- NOTE | 2017-12-21 22:33 | Podiatry Progress Note ---
Date of Encounter: 12/21/17 Time of Encounter: 22:30 - Assessment and Plan (1) Puncture wound Current Visit: Yes Status: Acute Patient will minimize weightbearing to the site. Patient will continue having the site packed daily. Patient will likely need physical therapy/occupational therapy consult to determine his ability to return home, although at this time due to his cardiac events this is not a priority. Patient will likely need a wound VAC once the site dries out a little bit more. We will continue to monitor his white blood cell count which continues to decrease and we will continue to monitor the wound to decide whether additional washouts are needed. Subjective Principal diagnosis: Left foot infection Interval history: The patient relates that he has been having chest pain. Patient relates that he is currently being evaluated for. Patient relates that his foot does not cause him any pain due to his neuropathy. Objective - Vital Signs Vital Signs: Vital Signs Temp Pulse Resp BP Pulse Ox 12/21/17 21:37 186/92 12/21/17 20:02 98.6 F 116 16 188/113 92 12/21/17 15:49 96.6 F L 100 16 171/94 94 12/21/17 11:44 97.9 F 80 16 142/98 97 12/21/17 07:39 97.4 F L 96 16 168/91 91 12/21/17 05:00 98.5 F 99 18 161/93 93 12/21/17 02:05 158/97 12/21/17 00:00 98.5 F 105 20 97 Intake and Output 12/21/17 12/21/17 12/21/17 07:59 15:59 23:59 Intake Total 1633 / 1633 125 / 125 341 / 341 Output Total 950 / 950 Balance 683 / 683 125 / 125 341 / 341 Intake: IV Fluids 1513 / 1513 125 / 125 341 / 341 0.9 % Sodium Chloride 1,000 ML 1000 / 1000 @ 125 mls/hr IVC .Q8H JORDY Rx#: [id number] Heparin 25,000 UNIT/500 ML D5W 163 / 163 125 / 125 241 / 241 25,000 unit In 500 ml @ 8.3 UNIT/KG/HR 19.837 mls/hr IVC . Q24H JORDY Rx#:[id number] Levaquin Premix 750mg/150 mL 150 / 150 750 mg In 150 ml @ 100 mls/hr IVPB DAILY [facility] Rx#:[id number] Zosyn 3.375 GM In 0.9 % Sodium 200 / 200 100 / 100 Chloride (Mini-Bag +) 100 ML @ 25 mls/hr IVPB Q8H [facility] Rx#: [id number] Oral 120 / 120 Output: Urine 950 / 950 Other: Weight 118.5 kg Blood Glucose* 200 166 325 Patient Weight 12/21/17 23:59 Weight 118.5 kg - Exam Exam: Packing intact, continued erythema but decreased from prior exam. No additional purulence or other lesions noted. Sensation diminished consistent with peripheral neuropathy and prior exams. - Lab Result Diagrams: 12/21/17 00:36 12/21/17 00:36 Labs: Abnormal lab results RBC 3.27 M/mcL (4.19-5.50) L 12/21/17 00:36 Hgb 10.2 g/dL (12.9-16.9) L 12/21/17 00:36 Hct 29.4 % (37.5-50.1) L 12/21/17 00:36 APTT 47.8 Seconds (26.0-36.0) H 12/21/17 18:39 ABG pH 7.46 pH Units (7.32-7.45) H 12/20/17 18:20 ABG pCO2 33 mmHg (35-45) L 12/20/17 18:20 ABG pO2 70 mmHg (85-104) L 12/20/17 18:20 Est GFR (Non-Af Amer) 59 (> 60) L 12/21/17 00:36 Glucose 238 mg/dL (70-105) H 12/21/17 00:36 POC Glucose 325 mg/dL (70-99) H 12/21/17 20:09 Hemoglobin A1c 9.5 % (-5.6) H 12/17/17 20:13 Calcium 7.8 mg/dL (8.6-10.3) L 12/21/17 00:36 Troponin I 0.44 ng/mL (< 0.04) H* 12/21/17 12:43 Microbiology, Last 48 Hours 12/20/17 12:00 Wound Culture - Preliminary Left Foot Staphylococcus aureus 12/18/17 17:19 Anaerobic Culture - Preliminary Left Foot At this time, no anaerobic growth is present. The culture will be finalized after 5 days of incubation. 12/18/17 17:19 Wound Culture - Final Left Foot Staphylococcus aureus Consult Discharge Plan - Plan Referrals: Babak Lamas DO [Primary Care Provider] -
[2017-12-22] MEDS: Melatonin 3 MG TABLET PO PRN (01:03)
[2017-12-22 01:38] LABS: Basophils # 0.1 K/mcL (0.0-0.2); Basophils % 0.5 %; Eosinophils # 0.3 K/mcL (0.0-0.6); Eosinophils % 2.7 %; Hematocrit 30.8 % (37.5-50.1); Hemoglobin 10.3 g/dL (12.9-16.9); Immature Granulocytes % 4.3 % (0-4); Lymphocytes # 1.1 K/mcL (0.6-4.6); Mean Corpuscular HGB Conc 33.4 g/dL (31.6-35.5); Mean Corpuscular Hemoglobin 30.1 pg (28.0-33.3); Mean Corpuscular Volume 90.1 fL (83.0-100.0); Mean Platelet Volume 11.2 fL (9.4-12.4); Monocytes # 1.1 K/mcL (0.0-1.3); Monocytes % 10.9 %; Platelet Count 229 K/mcL (140-400); Red Blood Count 3.42 M/mcL (4.19-5.50); Segmented Neutrophils % 70.6 %
[2017-12-22 01:56] LABS: BUN/Creatinine Ratio 11 (6-26); Blood Urea Nitrogen 16 mg/dL (6-20); Calcium 8.2 mg/dL (8.6-10.3); Carbon Dioxide 23 mEq/L (23-29); Chloride 106 mEq/L (98-107); Glucose 153 mg/dL (70-105); Osmolality,Calculated 288 (280-300); Potassium 3.7 mEq/L (3.5-5.1); Sodium 137 mEq/L (136-145); eGFR For African Americans > 60 (> 60); eGFR For Non-African Americans 54 (> 60)
[2017-12-22] MEDS: Insulin LISPRO 300 UNITS/3 ML VIAL SQ SCH ×4 (02:47→21:58)
[2017-12-22] MEDS: Piperacillin/Tazobactam 3.375 GM in 0.9 % Sodium Chloride Mini Bag 100 ML IVPB SCH ×2 (04:39→11:52)
[2017-12-22] MEDS: *HR* Metoprolol 5 MG/5 ML VIAL IVP PRN (04:39)
[2017-12-22] MEDS: Heparin 25,000 UNIT/500 ML D5W 25,000 UNIT/500 ML BAG IVC SCH ×2 (05:54→16:02)
--- NOTE | 2017-12-22 07:55 | Internal Med Progress Note ---
Date of Encounter: 12/22/17 Time of Encounter: 07:53 - Assessment and plan (1) Severe sepsis Current Visit: Yes Status: Acute Assessment and plan: 3 SIRS criteria on admission: Fever, tachycardia, leukocytosis, Randy suspected source of infection: left lower extremity cellulitis left foot CT showed severe cellulitis of the left foot, left ankle without discrete agonized fluid collection, no acute fracture or gross dislocation, no aggressive osseous destruction, no obvious foreign body identified. In the emergency department, patient received 2 fluid boluses with appropriate increase in blood pressure. He also received one dose vancomycin, one dose Zosyn, one dose ciprofloxacin. Leukocytosis resolved Tachycardic today Blood cultures NGTD, repeat blood cultures (after being febrile) no growth to date Wound cultures: MSSA on two occasions - Vanc discontinued MSSA - Patient was treated towards MSSA alone. He was febrile two nights ago and so Levaquin was added at that time. ID consulted, recommendations appreciated. (2) Elevated troponin Current Visit: No Status: Acute Assessment and plan: Continue Heparin drip Left heart cath planned for today (3) Atrial flutter with rapid ventricular response Current Visit: Yes Status: Acute Assessment and plan: - Likely caused by severe sepsis. Echocardiogram 12/21/17: LVEF 35-40% which is worse than prior echo in 2016. No valvular dysfunction. - TSH, T4 wnl - Cardiology consulted and left heart cath planned for today - No cardizem drip du to HFrEF - Continue IV Lopressor prn tachycardia - Increase metoprolol to 100 mg BID. (4) Cellulitis Current Visit: No Status: Acute Assessment and plan: Plan as above Qualifiers: Site of cellulitis: extremity Site of cellulitis of extremity: lower extremity Laterality: left Qualified Code(s): L03.116 - Cellulitis of left lower limb (5) RANDY (acute kidney injury) Current Visit: Yes Status: Resolved Assessment and plan: Likely secondary to sepsis and IV contrast - Patient received 2 fluid boluses in the ED, continued fluids but patient high risk of fluid overload currently held - Hold Lasix and lisinopril until renal function improves. - Renally dose medications - avoid all nephrotoxic agents. - discontinue vancomycin since wound culture shows MSSA - Change Levaquin to Q48H - Will consult Nephrology, recommendations appreciated. (6) Ischemic cardiomyopathy Current Visit: No Status: Acute (7) CAD in [place] artery Current Visit: No Status: Acute Assessment and plan: Continue aspirin, Statin, beta shira (8) Diabetes mellitus, type II, insulin dependent Current Visit: Yes Status: Chronic Assessment and plan: History of uncontrolled type II diabetes continue basal and medium dose sliding scale insulin - weight based and adjust as needed ADA diet - currently NPO for [facility] Goal inpatient setting is >180. (9) HLD (hyperlipidemia) Current Visit: No Status: Chronic Assessment and plan: Continue home Statin Qualifiers: Hyperlipidemia type: pure hypercholesterolemia Qualified Code(s): E78.00 - Pure hypercholesterolemia, unspecified; E78.0 - Pure hypercholesterolemia (10) HTN (hypertension) Current Visit: No Status: Chronic Assessment and plan: Continue home beta shira, hold lisinopril due to renal function - Increase metoprolol to 100 mg BID Qualifiers: Hypertension type: essential hypertension Qualified Code(s): I10 - Essential (primary) hypertension (11) Heart failure Current Visit: Yes Status: Acute Assessment and plan: Echocardiogram showed LVEF of 35-40% He required IV fluids on admission and during admission for severe sepsis with hypotension. When vitals more stable, IV fluids were held. Concern he may have some fluid overload and will continue to hold IV fluids to prevent exacerbation. Will get portable CXR as patient did complain of SOB. [facility] for today Qualifiers: Heart failure type: combined systolic and diastolic Heart failure chronicity: chronic Qualified Code(s): I50.42 - Chronic combined systolic ( congestive) and diastolic (congestive) heart failure (12) DVT prophylaxis Current Visit: No Status: Acute Assessment and plan: Currently on heparin drip - Time Spent With Patient Total time spent is greater than 50% in coordination of care (as documented) at patient's floor/unit and/or counseling patient: - Subjective Interval history: No fevers overnight. Patient had difficulty sleeping and restlessness. He currently denies shortness of breath but states he had SOB at one point overnight. Denies chest pain, n/v, diarrhea, fevers/chills. - Constitutional Vitals: Temp Pulse Resp BP Pulse Ox 97.6 F 91 15 166/94 97 12/22/17 07:28 12/22/17 07:28 12/22/17 07:28 12/22/17 07:28 12/22/17 07:28 General appearance: Present: A&O X 3, no acute distress, answers questions appropriately - Respiratory Respiratory exam: Present: CTAB. Absent: accessory muscle use, decreased breath sounds, respiratory distress, wheezes - Cardiovascular Cardiovascular exam: Present: tachycardia. Absent: diastolic murmur, gallop, rubs, systolic murmur - GI/Abdominal GI/Abdominal exam: Present: normal bowel sounds. Absent: tenderness - Extremities Exam Extremities exam: Present: pedal edema - Skin Skin exam: Present: erythema (left foot with some granulation tissue, no purulence noted in lesion) Internal Medicine: Result - Labs CBC & Chem 7: 12/22/17 01:24 12/22/17 01:24 Labs: Short CBC 12/22/17 Range/Units 01:24 WBC 9.9 (4.3-11.1) K/mcL Hgb 10.3 L (12.9-16.9) g/dL Hct 30.8 L (37.5-50.1) % Plt Count 229 (140-400) K/mcL Neutrophils # 7.0 (1.6-8.9) K/mcL BMP 12/22/17 01:24 Sodium 137 Potassium 3.7 Chloride 106 Carbon Dioxide 23 BUN 16 Creatinine 1.40 H Glucose 153 H Calcium 8.2 L Cardiac Enzymes 12/21/17 Range/Units 12:43 Troponin I 0.44 H* (< 0.04) ng/mL - ABG Interpretation ABG results: ABG ABG pH 7.46 pH Units (7.32-7.45) H 12/20/17 18:20 ABG pCO2 33 mmHg (35-45) L 12/20/17 18:20 ABG pO2 70 mmHg (85-104) L 12/20/17 18:20 ABG O2 Saturation 95 % (95-98) 12/20/17 18:20 PT/INR, D-dimer PT 11.8 Seconds (9.4-12.1) 12/20/17 19:44 - Impressions Impressions Pulmonary Perfusion Imaging 12/21/17 10:00 IMPRESSION: Low probability for pulmonary embolus. D/ / Adilson Garcia MD / Adilson Garcia MD Interpreting Provider: Adilson Garcia MD Echocardiogram 12/21/17 18:35 Impressions: LVEF 35-40%, decreased from last EF assessment. Consider cardiology consultation and cardiac catheterization if clinically warranted. Moderate segmental left ventricular systolic dysfunction consistent with ischemic cardiomyopathy/coronary artery disease Mild left ventricular diastolic dysfunction. No significant valvular dysfunction. Left Ventricular Wall Motion: Rest Echo Findings The mid inferior, mid anterior, mid inferior septal, apical lateral, mid anterior lateral, basal anterior lateral, mid inferior lateral and basal inferior lateral pisano were hypokinetic. The apical inferior, basal inferior and basal anterior pisano were not visualized. All other wall segments showed normal motion. Findings: Study Quality * Technically adequate exam. Right Ventricle * Normal right ventricular structure and function. Right Atrium * Normal right atrial size. Mitral Valve * Normal mitral valve structure and function. Interatrial Septum * No evidence of PFO by color Doppler. Aorta * Normally sized aortic root. ECG Findings * Normal sinus rhythm. Pericardium * There is a small pericardial effusion present. Left Atrium * Mildly dilated left atrium. Pulmonic Valve * No pulmonic stenosis. * No pulmonic regurgitation. * Pulmonic valve is not well visualized. Tricuspid Valve * Trace tricuspid regurgitation. * No tricuspid stenosis. * Unable to estimate RVSP due to lack of TR jet. Left Ventricle * Mild left ventricular diastolic dysfunction. * Moderate segmental left ventricular systolic dysfunction consistent with ischemic cardiomyopathy/coronary artery disease * LVEF 35-40%. Aortic Valve * No aortic stenosis. * No aortic regurgitation. * Aortic valve not well visualized. IVC * The IVC is dilated. * > 50% respiratory change Consult Discharge Plan - Plan Referrals: Babak Lamas DO [Primary Care Provider] -
--- NOTE | 2017-12-22 08:31 | Nephrology Consult Note ---
Date of Encounter: 12/22/17 Time of Encounter: 08:29 Assessment and Plan (1) RANDY (acute kidney injury) Current Visit: Yes Status: Resolved Patient has a clinical picture of acute kidney injury associated with left foot infection and clinical sepsis. He is renal function has improved since hospital admission but has not improved all the way back to his previous baseline level of 0.93. He may take a bit more time for his renal function to improve or this may be his new baseline. Other potential causative factors include vancomycin which has subsequently been discontinued. Coronary the patient's history did take 1 or 2 doses of Aleve at home prior to hospital admission. Acute interstitial nephritis is possible but less likely. Post renal obstruction should be ruled out. I am going order renal ultrasound. We will also check the urine for eosinophils. Further nephrotoxins should be avoided. Apparently the patient is scheduled for a cardiac catheterization today. I would recommend holding the cardiac catheterization unless it is urgent. (2) CAD in [place] artery Current Visit: No Status: Acute (3) Diabetes mellitus, type II, insulin dependent Current Visit: Yes Status: Chronic (4) Cellulitis Current Visit: No Status: Acute Qualifiers: Site of cellulitis: extremity Site of cellulitis of extremity: lower extremity Laterality: left Qualified Code(s): L03.116 - Cellulitis of left lower limb (5) Puncture wound Current Visit: Yes Status: Acute History of Present Illness - History of Present Illness This is a 47-year-old male with a history of type 2 diabetes. He apparently stepped on a nail about a week prior to hospital admission. 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 Eventually he developed a wound on the left foot. He came to the emergency room and subsequently has been admitted to the hospital. He has been diagnosed with cellulitis of the left foot. He clinically presented with sepsis. On admission his creatinine was elevated at 2.06 on December 17. As of December 20 creatinine is improved down to 1.3-1.4 but is not return all the way back to baseline. Creatinine in July 2017 was 0.93. Patient reports a history of diabetes for the past 8 years. He denies any previous history of renal disease. He did take one dose possibly 2 doses of Aleve prior to hospital admission. Initially when admitted to the hospital he was placed on vancomycin but that is subsequently been discontinued. Currently he is on Zosyn and Levaquin. Cultures have grown methicillin sensitive staph aureus. Patient denies any history of renal calculi, difficulty emptying his bladder, recurrent urinary tract infections, hematuria or proteinuria. He does have a history of hypertension, coronary artery disease, coronary stent placement, and hyperlipidemia. Here in the hospital he said issues with tachycardia. He has been placed on a beta shira. Troponin has been elevated in his echocardiogram shows newly discovered reduced left ventricular ejection fraction. The patient is scheduled for a cardiac catheterization later today. Past Med Surg Social Fam HX - Past Medical History Medical history: CHF, COPD, coronary artery disease, diabetes, GERD, hyperlipidemia, myocardial infarction Psychiatric history: no psych history - Past Surgical History Surgical History: angioplasty/stent - Social History Smoking Status: Former smoker Smokeless Tobacco Status: No Alcohol use: none Drug use: none - Family History Father History Unknown: Yes Family Member Ethnicity: Non- Living Status: Hx Family Cardiac Disorders: Yes (HTN) Hx Family Endocrine Disorder: Yes (DM) Sister History Unknown: Yes Family Member Ethnicity: Non- Living Status: Still Living Hx Family Endocrine Disorder: Yes (DM) Brother History Unknown: Yes Family Member Ethnicity: Non- Living Status: Still Living Hx Family Cardiac Disorders: Yes ([place] Age 50) Hx Family Endocrine Disorder: Yes (DM) Mother History Unknown: Yes Family Member Ethnicity: Non- Living Status: Hx Family Cardiac Disorders: Yes (HD) Hx Family Endocrine Disorder: Yes (DM) Medications and Allergies Furosemide [Lasix] 40 mg PO DAILY #30 tablet 11/10/15 [Rx] Lisinopril [Zestril] 10 mg PO DAILY #30 tablet 11/10/15 [Rx] Metformin HCl [Metformin HCl ER] 1,000 mg PO BID 01/04/16 [History] Amitriptyline [Elavil] 25 mg PO HS 03/16/17 [History] Aspirin [Lo-Dose Aspirin EC] 81 mg PO DAILY 12/17/17 [History] Insulin NPH Human Isophane [Novolin N] 15 unit SQ BID 12/17/17 [History] Lovastatin [Mevacor] 40 mg PO HS 12/17/17 [History] Metoprolol Tartrate [Lopressor] 50 mg PO BID 12/17/17 [History] 3 Allergy/AdvReac Type Severity Reaction Status Date / Time No Known Allergies Allergy Verified 12/17/17 21:55 Review of Systems Constitutional: as per HPI Eyes: bilateral: blurred vision (patient denies), diplopia (patient denies) Nose, mouth and throat: no dizziness, no headache(s) Cardiovascular: as per HPI, chest pain at rest, dyspnea, dyspnea on exertion, rapid heart rate Respiratory: dyspnea, dyspnea on exertion Gastrointestinal: no abdominal pain, no change in bowel habits Genitourinary Male: as per HPI Musculoskeletal: as per HPI Musculoskeletal: left: foot pain, foot swelling Integumentary: wounds, no hirsutism, no striae Neurological: as per HPI Psychiatric: no depression, no difficulty concentrating Endocrine: as per HPI Hematologic/Lymphatic: no easy bruising, no lymphadenopathy Exam - Vital Signs Vital signs: Initial Vital Signs Temp Pulse Resp BP Pulse Ox 100.0 F H 110 18 92/58 97 12/17/17 19:51 12/17/17 19:51 12/17/17 19:51 12/17/17 19:51 12/17/17 19:51 Vital Signs - Last 8 Hours Temp Pulse Resp BP Pulse Ox 12/22/17 07:28 97.6 F 91 15 166/94 97 12/22/17 04:04 98 F 100 20 157/100 96 12/22/17 01:34 102 18 152/99 96 Intake and Output 12/21/17 12/22/17 12/22/17 23:59 07:59 15:59 Intake Total 341 / 341 571.0 / 571.0 Output Total 2900 / 2900 500 / 500 Balance -2559 / -2559 71.0 / 71.0 Intake: IV Fluids 341 / 341 571.0 / 571.0 Heparin 25,000 UNIT/500 ML D5W 241 / 241 471.0 / 471.0 25,000 unit In 500 ml @ 8.3 UNIT/KG/HR 19.837 mls/hr IVC . Q24H JORDY Rx#:[id number] Zosyn 3.375 GM In 0.9 % Sodium 100 / 100 100 / 100 Chloride (Mini-Bag +) 100 ML @ 25 mls/hr IVPB Q8H JORDY Rx#: [id number] Oral 0 / 0 0 / 0 Output: Urine 2900 / 2900 500 / 500 Other: Weight 118.2 kg Blood Glucose* 325 193 Patient Weight 12/22/17 23:59 Weight 118.2 kg - General Appearance Exam: The patient is sleeping and is difficult to keep him awake. Most of the history is been obtained from the patient's . Patient appears in no acute distress. Oxygen saturation is 95%. Blood pressure 166/94. Lung sounds otherwise clear. Heart regular rate and rhythm. Current heart rate is in the 90s. Abdomen shows normal bowel sounds or bruits masses, megaly or tenderness. There is swelling of the left lower extremity. There is a bandage on the left foot. Right lower extremity has minimal swelling. Results - Lab Results 12/22/17 01:24 12/22/17 01:24 Most recent lab results ABG pH 7.46 pH Units (7.32-7.45) H 12/20/17 18:20 ABG pCO2 33 mmHg (35-45) L 12/20/17 18:20 ABG pO2 70 mmHg (85-104) L 12/20/17 18:20 ABG HCO3 24 mEq/L (21-27) 12/20/17 18:20 ABG O2 Saturation 95 % (95-98) 12/20/17 18:20 Calcium 8.2 mg/dL (8.6-10.3) L 12/22/17 01:24 Phosphorus 3.2 mg/dL (2.7-4.5) 12/21/17 00:36 Magnesium 1.8 mg/dL (1.6-2.6) 12/21/17 00:36 Urine Creatinine 99 mg/dL 12/18/17 16:24 Consult Discharge Plan - Plan Referrals: Babak Lamas DO [Primary Care Provider] -
[2017-12-22] MEDS ORDERED: Levofloxacin 750 MG/150 ML 750 MG/150 ML BAG IVPB SCH (09:00)
[2017-12-22] MEDS: 0.9 % Sodium Chloride 1,000 ML IVC SCH ×2 (09:08→17:12)
[2017-12-22] MEDS: Metoprolol 100 MG TABLET PO SCH ×2 (09:08→21:57)
[2017-12-22] MEDS: Aspirin Enteric Coated 81 MG Tablet PO SCH (09:08)
--- NOTE | 2017-12-22 09:50 | Cardiology Progress Note ---
Date of Encounter: 12/22/17 Time of Encounter: 09:48 Assessment and Plan (1) Elevated troponin Current Visit: No Status: Acute Troponins 0.25, 0.31, 0.33, 0.44 in setting of sepsis and RANDY. Suspect demand ischemia, nondiagnostic for ACS. Pt denies chest pain. Echo shows EF is reduced. Hx of ICMP, then improved to 55% 07/2016. Repeat TTE during stay EF is again reduced 35-40%. Recommend ischemic evaluation--LHC during stay once renal function improves. Continue to follow. (2) Ischemic cardiomyopathy Current Visit: No Status: Acute Hx of ICMP that improved after revascularization, EF was 55% 07/2016. TTE completed this admission shows EF is again reduced, 35-40%. Concern for ICMP given his CAD hx. Recommend LHC once renal function is stable. Continue BB. No ACEi currently due to renal function. (3) CAD (coronary artery disease) Current Visit: No Status: Chronic Known hx of CAD. LHC 10/2015 successful PTCA/BMS to mRCA and mLCx. Continue ASA, Statin, BB. Qualifiers: Coronary Disease-Associated Artery/Lesion type: unspecified vessel or lesion type [place] vs. transplanted heart: [place] heart Associated angina: angina presence unspecified Qualified Code(s): I25.10 - Atherosclerotic heart disease of [place] coronary artery without angina pectoris Discussion w patient/family: The assessment and plan as outlined above was discussed with the patient and/or family members who expressed understanding and agreement. All questions were answered. Thank you for involving us in the care of your patient. Please call with any questions. I will discuss all the above with Dr. Flowers and make changes as necessary. Subjective Principal diagnosis: Left foot infection Interval history: TTE resulted--EF reduced since prior TTE, 35-40%, mild LVDD. Creatinine 1.40 today, worsened since yesterday but improved since admission. Nephrology following. Pt denies chest pain or dyspnea this AM. Objective Vital Signs, Last 4 Hours Temp Pulse Resp BP Pulse Ox 12/22/17 07:28 97.6 F 91 15 166/94 97 Vital Signs Temp Pulse Resp BP Pulse Ox 12/22/17 07:28 97.6 F 91 15 166/94 97 12/22/17 04:04 98 F 100 20 157/100 96 12/22/17 01:34 102 18 152/99 96 12/21/17 23:00 98.2 F 104 19 188/96 95 12/21/17 21:37 186/92 12/21/17 21:15 96 12/21/17 20:02 98.6 F 116 16 188/113 92 12/21/17 15:49 96.6 F L 100 16 171/94 94 12/21/17 11:44 97.9 F 80 16 142/98 97 Intake and Output 12/21/17 12/22/17 12/22/17 23:59 07:59 15:59 Intake Total 341 / 341 571.0 / 571.0 0 / 0 Output Total 2900 / 2900 500 / 500 350 / 350 Balance -2559 / -2559 71.0 / 71.0 -350 / -350 Intake: IV Fluids 341 / 341 571.0 / 571.0 Heparin 25,000 UNIT/500 ML D5W 241 / 241 471.0 / 471.0 25,000 unit In 500 ml @ 8.3 UNIT/KG/HR 19.837 mls/hr IVC . Q24H JORDY Rx#:[id number] Zosyn 3.375 GM In 0.9 % Sodium 100 / 100 100 / 100 Chloride (Mini-Bag +) 100 ML @ 25 mls/hr IVPB Q8H JORDY Rx#: [id number] Oral 0 / 0 0 / 0 0 / 0 Output: Urine 2900 / 2900 500 / 500 350 / 350 Other: Meal Breakfast Percent of Meal Consumed 0% Weight 118.2 kg Blood Glucose* 325 193 Patient Weight 12/22/17 23:59 Weight 118.2 kg General: Conversant, No Apparent Distress HEENT: Atraumatic, Normocephaly, Mucus Membranes Moist Neck: Normal carotid pulses Cardiac: Reg Rate and Rhythm, Normal S1 and S2, No Murmur Lungs: Normal Breath Sounds, No Wheeze, Rales, Rhonchi Neuro: Alert and responsive, No focal deficits noted Abdomen: Soft, Non-Tender Skin: Other (left foot wound) Musculoskeletal: No Chest Wall Tenderness Extremities: Other (LLE wound, cellulitis) Results 12/22/17 01:24 12/22/17 01:24 Lab Results 12/21/17 12/21/17 12/21/17 11:33 12:43 18:39 WBC Hgb Hct Plt Count APTT 38.4 H 47.8 H Sodium Potassium Chloride Carbon Dioxide BUN Creatinine Glucose Calcium Troponin I 0.44 H* 12/22/17 12/22/17 12/22/17 01:24 01:24 01:24 WBC 9.9 Hgb 10.3 L Hct 30.8 L Plt Count 229 APTT 48.5 H Sodium 137 Potassium 3.7 Chloride 106 Carbon Dioxide 23 BUN 16 Creatinine 1.40 H Glucose 153 H Calcium 8.2 L Troponin I 12/22/17 09:04 WBC Hgb Hct Plt Count APTT 64.6 H Sodium Potassium Chloride Carbon Dioxide BUN Creatinine Glucose Calcium Troponin I Short CBC 12/22/17 Range/Units 01:24 WBC 9.9 (4.3-11.1) K/mcL Hgb 10.3 L (12.9-16.9) g/dL Hct 30.8 L (37.5-50.1) % Plt Count 229 (140-400) K/mcL Neutrophils # 7.0 (1.6-8.9) K/mcL BMP 12/22/17 Range/Units 01:24 Sodium 137 (136-145) mEq/L Potassium 3.7 (3.5-5.1) mEq/L Chloride 106 (98-107) mEq/L Carbon Dioxide 23 (23-29) mEq/L BUN 16 (6-20) mg/dL Creatinine 1.40 H (0.70-1.30) mg/dL Glucose 153 H (70-105) mg/dL Calcium 8.2 L (8.6-10.3) mg/dL Cardiac Enzymes 12/21/17 Range/Units 12:43 Troponin I 0.44 H* (< 0.04) ng/mL Impressions Pulmonary Perfusion Imaging 12/21/17 10:00 IMPRESSION: Low probability for pulmonary embolus. D/ / Adilson Garcia MD / Adilson Garcia MD Interpreting Provider: Adilson Garcia MD Echocardiogram 12/21/17 18:35 Impressions: LVEF 35-40%, decreased from last EF assessment. Consider cardiology consultation and cardiac catheterization if clinically warranted. Moderate segmental left ventricular systolic dysfunction consistent with ischemic cardiomyopathy/coronary artery disease Mild left ventricular diastolic dysfunction. No significant valvular dysfunction. Left Ventricular Wall Motion: Rest Echo Findings The mid inferior, mid anterior, mid inferior septal, apical lateral, mid anterior lateral, basal anterior lateral, mid inferior lateral and basal inferior lateral pisano were hypokinetic. The apical inferior, basal inferior and basal anterior pisano were not visualized. All other wall segments showed normal motion. Findings: Study Quality * Technically adequate exam. Right Ventricle * Normal right ventricular structure and function. Right Atrium * Normal right atrial size. Mitral Valve * Normal mitral valve structure and function. Interatrial Septum * No evidence of PFO by color Doppler. Aorta * Normally sized aortic root. ECG Findings * Normal sinus rhythm. Pericardium * There is a small pericardial effusion present. Left Atrium * Mildly dilated left atrium. Pulmonic Valve * No pulmonic stenosis. * No pulmonic regurgitation. * Pulmonic valve is not well visualized. Tricuspid Valve * Trace tricuspid regurgitation. * No tricuspid stenosis. * Unable to estimate RVSP due to lack of TR jet. Left Ventricle * Mild left ventricular diastolic dysfunction. * Moderate segmental left ventricular systolic dysfunction consistent with ischemic cardiomyopathy/coronary artery disease * LVEF 35-40%. Aortic Valve * No aortic stenosis. * No aortic regurgitation. * Aortic valve not well visualized. IVC * The IVC is dilated. * > 50% respiratory change Active Medications Acetaminophen (Tylenol) 650 mg PO Q6HR PRN PRN Reason: Mild Pain/Fever Stop: 06/18/18 23:14 Last Admin: 12/20/17 00:25 Dose: 650 mg Hydrocodone Bitart/Acetaminophen ([address] 5-325 Mg) 1 tab PO Q6HR PRN PRN Reason: Moderate Pain Stop: 06/19/18 01:55 Last Admin: 12/20/17 18:47 Dose: 1 tab Albuterol Sulfate (Proventil Neb) 2.5 mg IH [id number] PRN; Protocol PRN Reason: Shortness Of Breath/Wheezing Stop: 06/20/18 01:53 Last Admin: 12/19/17 04:45 Dose: 2.5 mg Amitriptyline HCl (Elavil) 25 mg PO HS JORDY Stop: 06/18/18 23:46 Last Admin: 12/21/17 21:18 Dose: 25 mg Aspirin (Aspirin Ec) 81 mg PO DAILY JORDY Stop: 06/18/18 23:46 Last Admin: 12/22/17 09:08 Dose: 81 mg Atorvastatin Calcium (Lipitor) 10 mg PO HS JORDY Stop: 06/18/18 23:46 Last Admin: 12/21/17 21:18 Dose: 10 mg Dextrose/Water (Dextrose 50% (Syg)) 25 ml IVP AD PRN PRN Reason: Hypoglycemia Stop: 06/18/18 23:22 Docusate Sodium (Colace) 100 mg PO DAILY PRN; Protocol PRN Reason: Constipation Stop: 06/22/18 13:42 Glucagon (Glucagen) 1 mg IM ONCE PRN PRN Reason: Hypoglycemia Stop: 06/18/18 23:22 Glucose (Gluctose) 15 gm PO ONCE PRN PRN Reason: Hypoglycemia Stop: 06/18/18 23:22 Glucose (Gluctose) 30 gm PO ONCE PRN PRN Reason: Hypoglycemia Stop: 06/18/18 23:22 Heparin Sodium (Porcine) (Heparin) 4,000 unit IVP Q6HR PRN PRN Reason: SEE COMMENTS Stop: 06/21/18 19:26 Last Admin: 12/21/17 12:52 Dose: 4,000 unit Heparin Sodium (Porcine) (Heparin) 2,000 unit IVP Q6H PRN PRN Reason: SEE COMMENTS Stop: 06/21/18 19:26 Last Admin: 12/21/17 19:26 Dose: 2,000 unit Dextrose (Dextrose 5%) 1,000 mls @ 100 mls/hr IVC .Q10H PRN PRN Reason: HYPOGLYCEMIA Stop: 06/18/18 23:22 Piperacillin Sod/Tazobactam (Sod 3.375 gm/ Sodium Chloride) 100 mls @ 25 mls/ hr IVPB Q8H JORDY Stop: 06/20/18 00:31 Last Admin: 12/22/17 04:39 Dose: 25 mls/hr Heparin Sodium/Dextrose (Heparin 25,000 Unit/500 Ml D5w) 25,000 unit in 500 mls @ 19.837 mls/hr IVC .Q24H JORDY; 8.3 UNIT/KG/HR PRN Reason: Protocol Stop: 06/21/18 19:31 Last Admin: 12/22/17 05:54 Dose: 20.37 unit/kg/hr, 48.7 mls/hr Levofloxacin/Dextrose (Levaquin Premix 750mg/150 Ml) 750 mg in 150 mls @ 100 mls/hr IVPB Q24H JORDY PRN Reason: Protocol Stop: 06/23/18 09:01 Last Admin: 12/22/17 09:09 Dose: 100 mls/hr Sodium Chloride (0.9 % Sodium Chloride) 1,000 mls @ 125 mls/hr IVC .Q8H [facility] Stop: 06/23/18 08:46 Last Admin: 12/22/17 09:08 Dose: 125 mls/hr Insulin Detemir (Levemir) 25 unit SQ HS JORDY Stop: 06/19/18 21:01 Last Admin: 12/20/17 22:34 Dose: 25 unit Insulin Human Lispro (Humalog) 0 units SQ Q6H JORDY PRN Reason: Protocol Stop: 06/22/18 08:46 Last Admin: 12/22/17 09:02 Dose: Not Given Lorazepam (Ativan) 0.5 mg IVP Q8H PRN PRN Reason: Anxiety Stop: 06/22/18 08:17 Last Admin: 12/21/17 21:47 Dose: 0.5 mg Melatonin (Melatonin) 3 mg PO HS PRN PRN Reason: Insomnia Stop: 06/23/18 00:44 Last Admin: 12/22/17 01:03 Dose: 3 mg Metoprolol Tartrate (Lopressor) 5 mg IVP Q6HR PRN PRN Reason: SEE COMMENTS Stop: 06/20/18 07:50 Last Admin: 12/22/17 04:39 Dose: 5 mg Metoprolol Tartrate (Lopressor) 100 mg PO BID [facility] Stop: 06/23/18 09:01 Last Admin: 12/22/17 09:08 Dose: 100 mg Naloxone HCl (Narcan) 0.4 mg IVP Q2MIN PRN PRN Reason: SEE COMMENTS Stop: 06/18/18 23:14 - Imaging and Cardiology Echo: report reviewed Cardiac cath: report reviewed - EKG Interpretation EKG results cardiology: other (12 hr tele AVG HR 99, SR, no significant pauses or arrhythmias.) Consult Discharge Plan - Plan Referrals: Babak Lamas, [Primary Care Provider] -
--- NOTE | 2017-12-22 11:27 | Infectious Disease Consult ---
Date of Encounter: 12/22/17 Time of Encounter: 11:27 Assessment and Plan (1) Severe sepsis Status: Acute Assessment and plan: Patient presented with 3 out of 4 SIRS criteria with fever, tachycardia, leukocytosis Cause is infected traumatic puncture wound of left foot Lactic acidosis present on admission, has since normalized Received IV fluid hydration, antibiotics Further treatment of infection as discussed below (2) Puncture wound Status: Acute Assessment and plan: Due to stepping on a nail Exacerbated by diabetic neuropathy Ultimately led to soft tissue infection being managed as below (3) Osteomyelitis Status: Acute Assessment and plan: Causative organism: MSSA Source: Traumatic puncture wound Status post incision and drainage with evidence of purulent material contacting bone concerning for early osteomyelitis No weak or damage bone was noted Wound cultures are positive for MSSA Blood cultures are no growth to date Creatinine clearance 55 Will DC Zosyn and Levaquin Start cefazolin and 1 g every 8 hours Patient will need PICC line placed Duration will be based on clinical course but likely 6 weeks Qualifiers: Osteomyelitis type: other acute Osteomyelitis location: foot Laterality: left Qualified Code(s): M86.172 - Other acute osteomyelitis, left ankle and foot (4) Cellulitis and abscess of left leg Status: Acute Assessment and plan: Secondary to traumatic puncture wound Plan as above (5) NSTEMI (non-ST elevated myocardial infarction) Status: Acute Assessment and plan: No active chest pain at this time Further management per cardiology (6) RANDY (acute kidney injury) Status: Resolved Assessment and plan: Possibly related to sepsis and underlying infection Creatinine clearance 55 Renally dose medications Avoid nephrotoxins Further management per nephrology (7) Diabetes mellitus, type II, insulin dependent Status: Chronic Assessment and plan: Uncontrolled Strict glycemic control home will encourage healing Further management per primary (8) Heart failure Status: Acute Assessment and plan: Further management per cardiology Qualifiers: Heart failure type: combined systolic and diastolic Heart failure chronicity: acute on chronic Qualified Code(s): I50.43 - Acute on chronic combined systolic (congestive) and diastolic (congestive) heart failure Infectious Disease HPI - Data of Consult Patient: new to practice Consult date: 12/22/17 Requesting Physician: J Luis Brown MD Primary Care Provider: Babak Lamas DO - Consult Narrative Reason for consult: Wound infection/long 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 Vargas is a 47 year old male with history of type 2 diabetes requiring insulin , coronary artery disease, peripheral neuropathy due to type 2 diabetes, hypertension, hyperlipidemia, previous infection requiring long-term IV antibiotics. Patient was admitted on 12/17/2017 for sepsis due to infected foot wound. Infectious disease was consulted on December 20 for assistance with managing antibiotic therapy. Patient is a 47-year-old male with medical history as discussed above. Patient reports that approximately 2 weeks ago he stepped on a nail while he was out cleaning his yard. He is wearing shoes and the nail went through his shoe and caused a puncture wound on his left foot. He states that due to his neuropathy he did not feel this at the time of the injury and only realize that approximately a week later when he started having increasing pain and swelling and his girlfriend noticed a puncture wound on the bottom of his foot. He continued to have pain and swelling that initially started in the interspace between the first and second toes and spread to encompass his entire foot. He denies any drainage from the wound during this time. Patient reports that he went to urgent care and was given Bactrim and a tetanus shot, however his symptoms continued to worsen so he presented to the emergency department. Upon arrival to the emergency department the patient had a temperature of 100.0, MAXIMUM TEMPERATURE during his hospitalization was 11.8 on December 20. White blood cell count was 20 on presentation. Creatinine was 2.06 on presentation. Patient underwent CT of the foot that showed severe cellulitis without discrete organized fluid collection and no obvious osseous destruction. Patient was initially treated with vancomycin, Zosyn, and ciprofloxacin in the emergency department. Antibiotic coverage was narrowed to Zosyn only once cultures returned with MSSA, however patient did have 2 episodes of fever after this therefore Levaquin was added. On 12/20/2017 the patient underwent operative incision and drainage. Purulent and necrotic tissue was encountered. There was noted to be purulence in contact with bone. There was no weak or damaged bone noted. The night of his procedure the patient had episode of sudden onset shortness of breath and tachypnea further evaluation showed an elevated troponin and echocardiogram showed decreased EF with regional wall motion abnormalities. Patient is currently on a heparin drip. 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 He denies any exposures to chemicals. He reports approximately 9 years ago he is stepped on a nail and had a severe infection that required outpatient IV antibiotics administered through PICC line. Patient is unsure what bacteria was present or antibiotic was used. CC: J Luis Brown MD Past Med Surg Social Fam HX - Past Medical History Medical history: CHF, COPD, coronary artery disease, diabetes, GERD, hyperlipidemia, myocardial infarction Psychiatric history: no psych history - Past Surgical History Surgical History: angioplasty/stent - Social History Smoking Status: Former smoker Smokeless Tobacco Status: No Alcohol use: none Drug use: none - Family History Father History Unknown: Yes Family Member Ethnicity: Non- Living Status: Hx Family Cardiac Disorders: Yes (HTN) Hx Family Endocrine Disorder: Yes (DM) Sister History Unknown: Yes Family Member Ethnicity: Non- Living Status: Still Living Hx Family Endocrine Disorder: Yes (DM) Brother History Unknown: Yes Family Member Ethnicity: Non- Living Status: Still Living Hx Family Cardiac Disorders: Yes ([place] Age 50) Hx Family Endocrine Disorder: Yes (DM) Mother History Unknown: Yes Family Member Ethnicity: Non- Living Status: Hx Family Cardiac Disorders: Yes (HD) Hx Family Endocrine Disorder: Yes (DM) Infectious Disease-CN:Meds Furosemide [Lasix] 40 mg PO DAILY #30 tablet 11/10/15 [Rx] Lisinopril [Zestril] 10 mg PO DAILY #30 tablet 11/10/15 [Rx] Metformin HCl [Metformin HCl ER] 1,000 mg PO BID 01/04/16 [History] Amitriptyline [Elavil] 25 mg PO HS 03/16/17 [History] Aspirin [Lo-Dose Aspirin EC] 81 mg PO DAILY 12/17/17 [History] Insulin NPH Human Isophane [Novolin N] 15 unit SQ BID 12/17/17 [History] Lovastatin [Mevacor] 40 mg PO HS 12/17/17 [History] Metoprolol Tartrate [Lopressor] 50 mg PO BID 12/17/17 [History] 3 Allergy/AdvReac Type Severity Reaction Status Date / Time No Known Allergies Allergy Verified 12/17/17 21:55 - Constitutional Constitutional: Present: chills, fever(s) - EENT Eyes: Absent: blind spots Nose, mouth and throat: Absent: facial pain - Cardiovascular Cardiovascular: Present: edema. Absent: chest pain, dyspnea on exertion - Respiratory Respiratory: Absent: cough, dyspnea, hemoptysis - Gastrointestinal Gastrointestinal: Absent: abdominal pain, diarrhea - Musculoskeletal Musculoskeletal: Present: joint swelling, limited range of motion, myalgias - Integumentary Integumentary: Present: erythema, skin ulcer, sores, unusual bruising, wounds - Neurological Neurological: Absent: confusion, dizziness - Endocrine Endocrine: Present: polydipsia, polyuria Exam - Constitutional Vitals: Temp Pulse Resp BP Pulse Ox 97.8 F 93 15 162/93 98 12/22/17 10:45 12/22/17 10:45 12/22/17 10:45 12/22/17 10:45 12/22/17 10:45 - Head Head exam: Present: atraumatic, normal inspection, normocephalic - Eye Eye exam: Present: EOMI, PERRL - ENT ENT exam: Present: mucous membranes moist - Neck Neck exam: Absent: lymphadenopathy, meningismus - Respiratory Respiratory exam: Present: CTAB. Absent: rales, rhonchi, wheezes - Cardiovascular Cardiovascular exam: Present: RRR. Absent: diastolic murmur, systolic murmur - GI/Abdominal GI/Abdominal exam: Present: hyperactive bowel sounds, soft. Absent: distended, tenderness - Extremities Exam Extremities exam: Present: pedal edema - Neurological Exam Neurological exam: Present: alert, oriented X3, no focal deficits - Psychiatric Psychiatric exam: Present: normal affect, normal mood - Skin Additional comments: Left foot between the first and second toes her surgical incision with packing present. Small amount of eschar noted around the wound with surrounding erythema that extends up to the mid foot. Minimal drainage noted. Infectious Disease CN: Results - Labs CBC & Chem 7: 12/22/17 01:24 12/22/17 01:24 Cultures: Cultures 12/20/17 12:00 Wound Culture - Final Left Foot Staphylococcus aureus 12/20/17 18:28 Blood Culture - Preliminary Peripheral Venipuncture No growth. 12/20/17 18:28 Blood Culture - Preliminary Peripheral Venipuncture No growth. 12/18/17 17:19 Anaerobic Culture - Preliminary Left Foot At this time, no anaerobic growth is present. The culture will be finalized after 5 days of incubation. 12/18/17 17:19 Wound Culture - Final Left Foot Staphylococcus aureus Serology: Serology 12/18/17 12/18/17 Range/Units 16:29 16:24 Urine Creatinine 99 mg/dL Urine Urea Nitrogen 380 mg/dL Consult Discharge Plan - Plan Referrals: Babak Lamas DO [Primary Care Provider] - - Attending Attestation I examined this patient and my medical decision-making was reviewed with the Resident Physician. I agree with the documented findings, disposition and treatment plan as described except to the extent set forth below. This is an addendum to original port dictated by Елена Villalba CNP. Please refer to Yovana olvera for full detail. Patient is a 45-year-old gentleman who has extensive past medical history mentioned below including diabetes mellitus type 2 poorly controlled coronary artery disease severe peripheral neuropathy apparently years ago had a right foot osteomyelitis and was on IV antibiotics for 6 weeks. Patient was admitted for a foot wound. 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 Initially it was not bothering him and he did not feel. Patient then started having swelling redness and pain and decided to seek medical attention. On admission patient was noted to have sepsis. His A1c was checked and was 9.5. Patient was given a tetanus shot as an outpatient antibiotic 10 and Menser transferred here. Patient was taken to surgery where Intra-Op noted purulence touching the bone but bone seems to be in good health. Cultures grew MSSA. Patient also had a chest x-ray which was negative for pneumonia. We were consulted to evaluate the patient and make further recommendation. Next Patient comfortable lying in bed and is at bedside. Patient has about 3 animals at home and his tells me that he plays rough with the catheter and sometimes bites or scratches them. Patient otherwise states that he is feeling okay. Assessment and plan severe sepsis Foot trauma with a nail Early osteomyelitis of the foot Cellulitis of the foot Acute kidney injury creatinine clearance 55 Acute cardiac syndrome non-ST [place] Neuropathy Recommendations: Give tetanus shot cefazolin given DC Zosyn DC Levaquin Start cefazolin dose adjust based on the creatinine clearance Patient will need a PICC line placement While on antibiotics he needs weekly labs including CBC, BMP, ESR, and CRP Follow-up with me in clinic in 2 weeks Adequate glucose control
--- NOTE | 2017-12-22 13:14 | Electrocardiograph Report ---
[address] [place], [place] [address] Test Date: 2017-12-20 Pat Name: Pepe Vargas Department: 114 Room: 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
--- NOTE | 2017-12-22 13:14 | Electrocardiograph Report ---
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
[2017-12-22] MEDS: ceFAZolin 1,000 MG in 0.9 % Sodium Chloride Mini Bag 100 ML IVPB SCH (16:02)
[2017-12-22] MEDS: *HR* HYDROcodone/Acet 5/325 mg TABLET PO PRN (17:12)
[2017-12-22] MEDS ORDERED: Insulin DETEMIR 100 UNIT/ML X5UNITS SQ ONE (18:02)
[2017-12-22] MEDS: Albuterol 2.5 MG/3 ML NEBULIZER IH PRN (18:09)
[2017-12-22] MEDS: *HR* LORazepam 2 MG/ML VIAL IVP PRN (18:21)
[2017-12-22] MEDS: Insulin DETEMIR 100 UNIT/ML X5UNITS SQ SCH (21:58)
[2017-12-23] MEDS: ceFAZolin 1,000 MG in 0.9 % Sodium Chloride Mini Bag 100 ML IVPB SCH ×3 (00:02→15:52)
[2017-12-23] MEDS: Melatonin 3 MG TABLET PO PRN (00:02)
[2017-12-23] MEDS: Heparin 25,000 UNIT/500 ML D5W 25,000 UNIT/500 ML BAG IVC SCH (02:58)
[2017-12-23 05:20] LABS: Hematocrit 30.8 % (37.5-50.1); Hemoglobin 10.6 g/dL (12.9-16.9); Mean Corpuscular HGB Conc 34.4 g/dL (31.6-35.5); Mean Corpuscular Hemoglobin 31.5 pg (28.0-33.3); Mean Corpuscular Volume 91.4 fL (83.0-100.0); Mean Platelet Volume 11.5 fL (9.4-12.4); Platelet Count 227 K/mcL (140-400); Red Blood Count 3.37 M/mcL (4.19-5.50); Red Cell Distribution Width 13.1 % (11.5-14.5)
[2017-12-23 05:41] LABS: Alanine Aminotransferase 22 Units/L (7-52); Albumin 2.9 g/dL (3.5-5.7); Albumin/Globulin Ratio 0.8 (1.1-2.2); Alkaline Phosphatase 83 Units/L (34-104); Aspartate Amino Transferase 23 Units/L (13-39); BUN/Creatinine Ratio 14 (6-26); Bilirubin,Total 0.3 mg/dL (0.3-1.0); Blood Urea Nitrogen 18 mg/dL (6-20); Calcium 8.3 mg/dL (8.6-10.3); Carbon Dioxide 25 mEq/L (23-29); Chloride 105 mEq/L (98-107); Globulin 3.5 g/dL (2.4-3.5); Glucose 256 mg/dL (70-105); Osmolality,Calculated 293 (280-300); Potassium 4.2 mEq/L (3.5-5.1); Sodium 136 mEq/L (136-145); Total Protein 6.4 g/dL (6.4-8.9); eGFR For African Americans > 60 (> 60); eGFR For Non-African Americans 58 (> 60)
[2017-12-23 05:51] LABS: Eosinophils # 0.2 K/mcL (0.0-0.6); Lymphocytes # 2.1 K/mcL (0.6-4.6); Monocytes # 0.4 K/mcL (0.0-1.3); Neutrophils # 6.3 K/mcL (1.6-8.9)
--- NOTE | 2017-12-23 08:05 | Nephrology Progress Note ---
Date of Encounter: 12/23/17 Time of Encounter: 08:03 - Assessment and Plan (1) RANDY (acute kidney injury) Current Visit: Yes Status: Resolved Patient has acute kidney injury in the setting of sepsis. Renal function is improving all the way back to his previous normal baseline. This may represent a new baseline for the patient. It may be worthwhile to have urology evaluate the patient for an elevated postvoid residual bladder which may be related to her from his diabetes. We will make some changes to his antihypertensive regimen. (2) CAD in [place] artery Current Visit: No Status: Acute (3) Diabetes mellitus, type II, insulin dependent Current Visit: Yes Status: Chronic (4) Cellulitis Current Visit: No Status: Acute Qualifiers: Site of cellulitis: extremity Site of cellulitis of extremity: lower extremity Laterality: left Qualified Code(s): L03.116 - Cellulitis of left lower limb (5) Puncture wound Current Visit: Yes Status: Acute Subjective Principal diagnosis: Left foot infection Interval history: The patient denies any new complaints. Serum creatinine is 1.31 today slightly down from 1.40 yesterday. Renal ultrasound showed a postvoid residual of 371 mL. Urine for eosinophils was negative. Blood pressure remains elevated at 175 /93. Objective - Vital Signs Vital signs: Vital Signs Temp Pulse Resp BP Pulse Ox 12/23/17 07:29 98.7 F 91 16 169/98 96 12/23/17 05:19 98.4 F 98 16 175/93 97 12/23/17 00:00 98.7 F 88 16 137/89 99 12/22/17 22:15 94 12/22/17 20:00 98.7 F 93 17 152/83 96 12/22/17 18:11 15 98 12/22/17 14:35 97.8 F 83 15 140/89 98 12/22/17 10:45 97.8 F 93 15 162/93 98 Intake and Output 12/22/17 12/23/17 12/23/17 23:59 07:59 15:59 Intake Total 1279 / 1279 941 / 941 Output Total 1100 / 1100 1600 / 1600 Balance 179 / 179 -659 / -659 Intake: IV Fluids 1159 / 1159 541 / 541 0.9 % Sodium Chloride 1,000 ML 1000 / 1000 @ 125 mls/hr IVC .Q8H JORDY Rx#: [id number] Heparin 25,000 UNIT/500 ML D5W 59 / 59 441 / 441 25,000 unit In 500 ml @ 8.3 UNIT/KG/HR 19.837 mls/hr IVC . Q24H JORDY Rx#:[id number] Ancef 1,000 MG In 0.9 % Sodium 100 / 100 100 / 100 Chloride (Mini-Bag +) 100 ML @ 200 mls/hr IVPB Q8HR JORDY Rx#: [id number] Oral 120 / 120 400 / 400 Output: Urine 1100 / 1100 1600 / 1600 Other: Meal Dinner Percent of Meal Consumed 85% Weight 118.2 kg Blood Glucose* 165 238 Patient Weight 12/23/17 23:59 Weight 118.2 kg - General Appearance Exam: Patient is alert and oriented. He is in no acute distress. Lungs clear to auscultation anteriorly. Heart regular rate and rhythm. Abdomen was benign. There is minimal swelling of the right lower extremity. The left foot is bandaged and there is some swelling of the left lower extremity. - Lab 12/23/17 04:49 12/23/17 04:49 Most recent lab results ABG pH 7.46 pH Units (7.32-7.45) H 12/20/17 18:20 ABG pCO2 33 mmHg (35-45) L 12/20/17 18:20 ABG pO2 70 mmHg (85-104) L 12/20/17 18:20 ABG HCO3 24 mEq/L (21-27) 12/20/17 18:20 ABG O2 Saturation 95 % (95-98) 12/20/17 18:20 Calcium 8.3 mg/dL (8.6-10.3) L 12/23/17 04:49 Phosphorus 3.2 mg/dL (2.7-4.5) 12/21/17 00:36 Magnesium 1.8 mg/dL (1.6-2.6) 12/21/17 00:36 Urine Creatinine 99 mg/dL 12/18/17 16:24 Consult Discharge Plan - Plan Referrals: Babak Lamas DO [Primary Care Provider] -
--- NOTE | 2017-12-23 08:09 | Internal Med Progress Note ---
<Felix Meelndrez - Last Filed: 12/23/17 17:24> Date of Encounter: 12/23/17 Time of Encounter: 09:35 - Assessment and plan (1) Severe sepsis Current Visit: Yes Status: Acute Assessment and plan: 3 SIRS criteria on admission: Fever, tachycardia, leukocytosis, Randy suspected source of infection: left lower extremity cellulitis left foot CT showed severe cellulitis of the left foot, left ankle without discrete agonized fluid collection, no acute fracture or gross dislocation, no aggressive osseous destruction, no obvious foreign body identified. In the emergency department, patient received 2 fluid boluses with appropriate increase in blood pressure. He also received one dose vancomycin, one dose Zosyn, one dose ciprofloxacin. Leukocytosis resolved Tachycardia improved today Blood cultures NGTD, repeat blood cultures (after being febrile) no growth to date Wound cultures: MSSA on two occasions - Vanc discontinued MSSA - Patient was treated towards MSSA alone. He was febrile two nights ago and so Levaquin was added at that time. ID is now on board, recommend Continued cefazolin Will require PICC for long-term IV Antibiotics (2) Cellulitis Current Visit: No Status: Acute Assessment and plan: Plan as above Qualifiers: Site of cellulitis: extremity Site of cellulitis of extremity: lower extremity Laterality: left Qualified Code(s): L03.116 - Cellulitis of left lower limb (3) Ischemic cardiomyopathy Current Visit: Yes Status: Suspected Assessment and plan: HFrEF with minimal fluid overload Patient continues to have some orthopnea Echo shows LVEF 35-40%, mild LV diastolic dysfunction Cardiology on board, plan for [facility] when cleared by nephrology Per cardiology, stop heparin drip, continue BB, ASA, Statin. Hold ACEi due to kidney function (4) Diabetes mellitus, type II, insulin dependent Current Visit: Yes Status: Chronic Assessment and plan: History of uncontrolled type II diabetes continue basal and medium dose sliding scale insulin - weight based and adjust as needed ADA diet - currently NPO for [facility] Goal inpatient setting is <180. (5) HLD (hyperlipidemia) Current Visit: No Status: Chronic Qualifiers: Hyperlipidemia type: pure hypercholesterolemia Qualified Code(s): E78.00 - Pure hypercholesterolemia, unspecified (6) HTN (hypertension) Current Visit: Yes Status: Chronic Assessment and plan: Continue home beta shira, hold lisinopril due to renal function - Increased metoprolol to 100 mg BID Qualifiers: Hypertension type: essential hypertension Qualified Code(s): I10 - Essential (primary) hypertension (7) RANDY (acute kidney injury) Current Visit: Yes Status: Resolved Assessment and plan: Likely secondary to sepsis and IV contrast Seems to be improving each day, current serum creatinine 1.31 Per nephrology, this may be the patient's new baseline Management per nephrology (8) DVT prophylaxis Current Visit: No Status: Acute Assessment and plan: SQ Heparin (9) Atrial flutter with rapid ventricular response Current Visit: Yes Status: Acute Assessment and plan: - Likely caused by severe sepsis, rate controlled at this time Echocardiogram 12/21/17: LVEF 35-40% which is worse than prior echo in 2016. No valvular dysfunction. Was previously on heparin drip, may require long-term anticoagulation - Time Spent With Patient Total time spent is greater than 50% in coordination of care (as documented) at patient's floor/unit and/or counseling patient: - Subjective Interval history: The patient is seen and examined at bedside. He is sitting up on the side of his bed at this time with boot on his left lower extremity. He says that his pain is well controlled at this time and he has no acute complaints. - Constitutional Vitals: Temp Pulse Resp BP Pulse Ox 98.7 F 91 16 169/98 96 12/23/17 07:29 12/23/17 07:29 12/23/17 07:29 12/23/17 07:29 12/23/17 07:29 General appearance: Present: A&O X 3, no acute distress, answers questions appropriately Exam: Gen: Vitals noted. No acute distress. HEENT: Normocephalic, atraumatic Neck: Supple. No adenopathy. Cardiac: RRR, no murmur, +S1/S2 Pulmonary: CTA bilaterally, no wheezes, rales or rhonchi, equal chest expansion Abdomen: soft, nontender, BS noted, no guarding Back: Nontender throughout. MSK: ROM intact, no joint swelling noted Extremities: Trace bilateral lower extremity edema with worsened edema on the left leg which goes to the mid tibia. Mildly increased warmth and left lower extremity. Neuro: A&Ox3, moves all extremities, no focal deficits Psych: Appropriate mood and behavior Internal Medicine: Result - Labs CBC & Chem 7: 12/23/17 04:49 12/23/17 04:49 Labs: Short CBC 12/23/17 Range/Units 04:49 WBC 9.3 (4.3-11.1) K/mcL Hgb 10.6 L (12.9-16.9) g/dL Hct 30.8 L (37.5-50.1) % Plt Count 227 (140-400) K/mcL Neutrophils # 6.3 (1.6-8.9) K/mcL BMP 12/23/17 04:49 Sodium 136 Potassium 4.2 Chloride 105 Carbon Dioxide 25 BUN 18 Creatinine 1.31 H Glucose 256 H Calcium 8.3 L Liver Function 12/23/17 Range/Units 04:49 Total Bilirubin 0.3 (0.3-1.0) mg/dL AST 23 (13-39) Units/L ALT 22 (7-52) Units/L Alkaline Phosphatase 83 (34-104) Units/L Albumin 2.9 L (3.5-5.7) g/dL - ABG Interpretation ABG results: ABG ABG pH 7.46 pH Units (7.32-7.45) H 12/20/17 18:20 ABG pCO2 33 mmHg (35-45) L 12/20/17 18:20 ABG pO2 70 mmHg (85-104) L 12/20/17 18:20 ABG O2 Saturation 95 % (95-98) 12/20/17 18:20 PT/INR, D-dimer PT 11.8 Seconds (9.4-12.1) 12/20/17 19:44 - Impressions Impressions Chest X-Ray 12/22/17 08:10 IMPRESSION: Moderate prominence of interstitial lung markings may represent a pulmonary interstitial edema, and/or chronic interstitial lung disease. D/ / Bryce Garcia MD / Bryce Garcia MD Interpreting Provider: Bryce Garcia MD Retroperitoneum Ultrasound 12/22/17 14:30 IMPRESSION: Increased echogenicity of the liver which can be seen in medical renal disease. Small post residual volume in the bladder. D/ / Megan Jeronimo MD / Megan Jeronimo MD Interpreting Provider: Megan Jeronimo MD Consult Discharge Plan - Plan Referrals: Babak Lamas DO [Primary Care Provider] - <Warren Fuchs - Last Filed: 12/23/17 18:37> Date of Encounter: 12/23/17 - Assessment and plan (1) Cellulitis Current Visit: No Status: Acute Qualifiers: Site of cellulitis: extremity Site of cellulitis of extremity: lower extremity Laterality: left Qualified Code(s): L03.116 - Cellulitis of left lower limb (2) Ischemic cardiomyopathy Current Visit: Yes Status: Suspected (3) Diabetes mellitus, type II, insulin dependent Current Visit: Yes Status: Chronic (4) HLD (hyperlipidemia) Current Visit: No Status: Chronic Qualifiers: Hyperlipidemia type: mixed hyperlipidemia Qualified Code(s): E78.2 - Mixed hyperlipidemia (5) HTN (hypertension) Current Visit: Yes Status: Chronic Qualifiers: Hypertension type: essential hypertension Qualified Code(s): I10 - Essential (primary) hypertension (6) RANDY (acute kidney injury) Current Visit: Yes Status: Resolved (7) Severe sepsis Current Visit: Yes Status: Acute (8) Atrial flutter with rapid ventricular response Current Visit: Yes Status: Acute (9) DVT prophylaxis Current Visit: No Status: Acute (10) NSTEMI (non-ST elevated myocardial infarction) Current Visit: Yes Status: Acute (11) Osteomyelitis Current Visit: Yes Status: Acute Qualifiers: Osteomyelitis type: other acute Osteomyelitis location: foot Laterality: left Qualified Code(s): M86.172 - Other acute osteomyelitis, left ankle and foot - Time Spent With Patient Total time spent is greater than 50% in coordination of care (as documented) at patient's floor/unit and/or counseling patient: - Constitutional Vitals: Temp Pulse Resp BP Pulse Ox 99 F 94 16 171/88 97 12/23/17 15:13 12/23/17 15:13 12/23/17 15:13 12/23/17 15:13 12/23/17 15:13 Internal Medicine: Result - Labs CBC & Chem 7: 12/23/17 04:49 12/23/17 04:49 Labs: Short CBC 12/23/17 Range/Units 04:49 WBC 9.3 (4.3-11.1) K/mcL Hgb 10.6 L (12.9-16.9) g/dL Hct 30.8 L (37.5-50.1) % Plt Count 227 (140-400) K/mcL Neutrophils # 6.3 (1.6-8.9) K/mcL BMP 12/23/17 04:49 Sodium 136 Potassium 4.2 Chloride 105 Carbon Dioxide 25 BUN 18 Creatinine 1.31 H Glucose 256 H Calcium 8.3 L Liver Function 12/23/17 Range/Units 04:49 Total Bilirubin 0.3 (0.3-1.0) mg/dL AST 23 (13-39) Units/L ALT 22 (7-52) Units/L Alkaline Phosphatase 83 (34-104) Units/L Albumin 2.9 L (3.5-5.7) g/dL - ABG Interpretation ABG results: ABG ABG pH 7.46 pH Units (7.32-7.45) H 12/20/17 18:20 ABG pCO2 33 mmHg (35-45) L 12/20/17 18:20 ABG pO2 70 mmHg (85-104) L 12/20/17 18:20 ABG O2 Saturation 95 % (95-98) 12/20/17 18:20 PT/INR, D-dimer PT 11.8 Seconds (9.4-12.1) 12/20/17 19:44 - Attending Attestation I examined this patient and my medical decision-making was reviewed with the Resident Physician on 12/23/17. I agree with the documented findings, disposition and treatment plan as described except to the extent set forth below. Ashley Vargas is currently admitted for severe sepsis related to LLE cellulitis. He remains moderate to high risk due to potential for worsening clinical status. Mr. Vargas has no new issues. No CP or SOB at this time. To have heart cath tomorrow. No fever or chills. Exam alert Comfortable Mucus membranes dry Heart reg No wheeze Dressing intact I/P 1. Severe sepsis 2. Cellulitis Further diagnoses and plan as above.
[2017-12-23] MEDS: Metoprolol 100 MG TABLET PO SCH ×2 (08:32→20:41)
[2017-12-23] MEDS: Aspirin Enteric Coated 81 MG Tablet PO SCH (08:34)
[2017-12-23] MEDS: amLODIPine 5 MG TABLET PO SCH ×2 (08:34→20:41)
[2017-12-23] MEDS: Insulin LISPRO 300 UNITS/3 ML VIAL SQ SCH ×4 (08:51→20:43)
--- NOTE | 2017-12-23 09:39 | Infectious Disease Progress No ---
Date of Encounter: 12/23/17 Time of Encounter: 09:37 - Assessment and Plan (1) Severe sepsis Current Visit: Yes Status: Acute Patient presented with 3 out of 4 SIRS criteria with fever, tachycardia, leukocytosis Resolved at this time Cause is infected traumatic puncture wound of left foot Lactic acidosis present on admission, has since normalized Received IV fluid hydration, antibiotics Further treatment of infection as discussed below (2) Puncture wound Current Visit: Yes Status: Acute Due to stepping on a nail Exacerbated by diabetic neuropathy Ultimately led to soft tissue infection being managed as below (3) Osteomyelitis Current Visit: Yes Status: Acute Causative organism: MSSA Source: Traumatic puncture wound Status post incision and drainage with evidence of purulent material contacting bone concerning for early osteomyelitis No weak or damage bone was noted Wound cultures are positive for MSSA Blood cultures are no growth to date Creatinine clearance 59 Continue cefazolin and 1 g every 8 hours Will consider increasing dose as renal function improves Patient will need PICC line placed While on IV antibiotics will need weekly labs including CBC, BMP, ESR, CRP Follow up in ID clinic in 2 weeks Duration will be based on clinical course but likely 6 weeks Qualifiers: Osteomyelitis type: other acute Osteomyelitis location: foot Laterality: left Qualified Code(s): M86.172 - Other acute osteomyelitis, left ankle and foot (4) Cellulitis and abscess of left leg Current Visit: Yes Status: Acute Secondary to traumatic puncture wound Plan as above (5) NSTEMI (non-ST elevated myocardial infarction) Current Visit: Yes Status: Acute Further management per primary/cardiology (6) RANDY (acute kidney injury) Current Visit: Yes Status: Resolved Further management per nephrology/primary (7) Diabetes mellitus, type II, insulin dependent Current Visit: Yes Status: Chronic (8) Heart failure Current Visit: Yes Status: Acute Qualifiers: Heart failure type: combined systolic and diastolic Heart failure chronicity: acute on chronic Qualified Code(s): I50.43 - Acute on chronic combined systolic (congestive) and diastolic (congestive) heart failure - Subjective Interval history: Patient seen and examined at bedside. Patient states that he feels pretty good today. He has no complaints. He denies pain in the left foot, chest pain, shortness of breath, abdominal pain, nausea, vomiting, diarrhea. Infect Dis PN-Objective Data - Labs CBC & Chem 7: 12/23/17 04:49 12/23/17 04:49 Labs: Laboratory Results - last 24 hr 12/22/17 12/22/17 12/22/17 07:35 10:48 13:43 WBC RBC Hgb Hct MCV MCH MCHC RDW Plt Count MPV Seg Neutrophils % Lymphocytes % Monocytes % Eosinophils % Metamyelocytes % Myelocytes % Neutrophils # Lymphocytes # Monocytes # Eosinophils # APTT Sodium Potassium Chloride Carbon Dioxide BUN Creatinine Est GFR ( Amer) Est GFR (Non-Af Amer) BUN/Creatinine Ratio Glucose POC Glucose 193 H 235 H Calculated Osmolality Calcium Total Bilirubin AST ALT Alkaline Phosphatase Serum Total Protein Albumin Globulin Albumin/Globulin Ratio Ur Eosinophil Smear 0 12/22/17 12/22/17 12/22/17 15:59 16:09 20:41 WBC RBC Hgb Hct MCV MCH MCHC RDW Plt Count MPV Seg Neutrophils % Lymphocytes % Monocytes % Eosinophils % Metamyelocytes % Myelocytes % Neutrophils # Lymphocytes # Monocytes # Eosinophils # APTT 65.9 H Sodium Potassium Chloride Carbon Dioxide BUN Creatinine Est GFR ( Amer) Est GFR (Non-Af Amer) BUN/Creatinine Ratio Glucose POC Glucose 307 H 165 H Calculated Osmolality Calcium Total Bilirubin AST ALT Alkaline Phosphatase Serum Total Protein Albumin Globulin Albumin/Globulin Ratio Ur Eosinophil Smear 12/23/17 12/23/17 04:49 04:49 WBC 9.3 RBC 3.37 L Hgb 10.6 L Hct 30.8 L MCV 91.4 MCH 31.5 MCHC 34.4 RDW 13.1 Plt Count 227 MPV 11.5 Seg Neutrophils % 68.0 Lymphocytes % 22.0 Monocytes % 4.0 Eosinophils % 2.0 Metamyelocytes % 2.0 H Myelocytes % 2.0 H Neutrophils # 6.3 Lymphocytes # 2.1 Monocytes # 0.4 Eosinophils # 0.2 APTT Sodium 136 Potassium 4.2 Chloride 105 Carbon Dioxide 25 BUN 18 Creatinine 1.31 H Est GFR ( Amer) > 60 Est GFR (Non-Af Amer) 58 L BUN/Creatinine Ratio 14 Glucose 256 H POC Glucose Calculated Osmolality 293 Calcium 8.3 L Total Bilirubin 0.3 AST 23 ALT 22 Alkaline Phosphatase 83 Serum Total Protein 6.4 Albumin 2.9 L Globulin 3.5 Albumin/Globulin Ratio 0.8 L Ur Eosinophil Smear Cultures: Cultures 12/20/17 12:00 Wound Culture - Final Left Foot Staphylococcus aureus 12/20/17 18:28 Blood Culture - Preliminary Peripheral Venipuncture No growth. 05/12/18 18:28 Blood Culture - Preliminary Peripheral Venipuncture No growth. 12/18/17 17:19 Anaerobic Culture - Preliminary Left Foot At this time, no anaerobic growth is present. The culture will be finalized after 5 days of incubation. 12/18/17 17:19 Wound Culture - Final Left Foot Staphylococcus aureus Serology 12/22/17 12/18/17 12/18/17 Range/Units 13:43 16:29 16:24 Ur Eosinophil Smear 0 (None Seen) % Urine Creatinine 99 mg/dL Urine Urea Nitrogen 380 mg/dL - Impressions Impressions Chest X-Ray 12/22/17 08:10 IMPRESSION: Moderate prominence of interstitial lung markings may represent a pulmonary interstitial edema, and/or chronic interstitial lung disease. D/ / Bryce Garcia MD / Bryce Garcia MD Interpreting Provider: Bryce Garcia MD Retroperitoneum Ultrasound 12/22/17 14:30 IMPRESSION: Increased echogenicity of the liver which can be seen in medical renal disease. Small post residual volume in the bladder. D/ / Megan Jeronimo MD / Megan Jeronimo MD Interpreting Provider: Megan Jeronimo MD Exam - Constitutional Vitals: Temp Pulse Resp BP Pulse Ox 98.7 F 91 16 169/98 96 12/23/17 07:29 12/23/17 07:29 12/23/17 07:29 12/23/17 07:29 12/23/17 07:29 - Respiratory Respiratory exam: Present: CTAB. Absent: rales, rhonchi, wheezes - Cardiovascular Cardiovascular exam: Present: RRR. Absent: diastolic murmur, systolic murmur - GI/Abdominal GI/Abdominal exam: Present: normal bowel sounds, soft. Absent: tenderness - Extremities Exam Additional comments: Left foot and ankle have dressing and heel protector boot applied. Dressing is clean dry and intact. Consult Discharge Plan - Plan Referrals: Ferdous,Aasia, DO [Primary Care Provider] - - Attending Attestation I examined this patient and my medical decision-making was reviewed with the Resident Physician. I agree with the documented findings, disposition and treatment plan as described except to the extent set forth below.
--- NOTE | 2017-12-23 11:48 | Cardiology Progress Note ---
Date of Encounter: 12/23/17 Time of Encounter: 11:45 Assessment and Plan (1) Elevated troponin Current Visit: No Status: Acute Troponins 0.25, 0.31, 0.33, 0.44 in setting of sepsis and RANDY. Suspect demand ischemia, nondiagnostic for ACS. Pt denies chest pain. Echo shows EF is reduced. Hx of ICMP, then improved to 55% 07/2016. Repeat TTE during stay EF is again reduced 35-40%. Recommend ischemic evaluation--LHC. Renal function improving, creatinine 1.31 today. Discussed with nephrology. IV fluids overnight, plan for LHC tomorrow if renal function stable. R/B/A discussed and pt agrees. Pt has been on heparin gtt >48 hours. Since ACS is not suspected, will stop heparin gtt and start DVT prophylaxis. (2) Ischemic cardiomyopathy Current Visit: No Status: Acute Hx of ICMP that improved after revascularization, EF was 55% 07/2016. TTE completed this admission shows EF is again reduced, 35-40%. Concern for ICMP given his CAD hx. Recommend LHC tomorrow as long as renal function is stable. R/B/A discussed. Pt agrees to proceed. Continue BB. No ACEi currently due to renal function. (3) CAD (coronary artery disease) Current Visit: No Status: Chronic Known hx of CAD. [facility] 10/2015 successful PTCA/BMS to mRCA and mLCx. Continue ASA, Statin, BB. Qualifiers: Coronary Disease-Associated Artery/Lesion type: unspecified vessel or lesion type [place] vs. transplanted heart: [place] heart Associated angina: angina presence unspecified Qualified Code(s): I25.10 - Atherosclerotic heart disease of [place] coronary artery without angina pectoris Discussion w patient/family: The assessment and plan as outlined above was discussed with the patient and/or family members who expressed understanding and agreement. All questions were answered. Thank you for involving us in the care of your patient. Please call with any questions. I will discuss all the above with Dr. Flowers and make changes as necessary. Subjective Principal diagnosis: Left foot infection Interval history: Renal function improving--creatinine 1.31. Pt denies chest pain or dyspnea this AM. Objective Vital Signs, Last 4 Hours Temp Pulse Resp BP Pulse Ox 12/23/17 11:26 98.1 F 88 15 163/89 93 Vital Signs Temp Pulse Resp BP Pulse Ox 12/23/17 11:26 98.1 F 88 15 163/89 93 12/23/17 07:29 98.7 F 91 16 169/98 96 12/23/17 05:19 98.4 F 98 16 175/93 97 12/23/17 00:00 98.7 F 88 16 137/89 99 12/22/17 22:15 94 12/22/17 20:00 98.7 F 93 17 152/83 96 12/22/17 18:11 15 98 12/22/17 14:35 97.8 F 83 15 140/89 98 Intake and Output 12/22/17 12/23/17 12/23/17 23:59 07:59 15:59 Intake Total 1279 / 1279 941 / 941 360 / 360 Output Total 1100 / 1100 1600 / 1600 800 / 800 Balance 179 / 179 -659 / -659 -440 / -440 Intake: IV Fluids 1159 / 1159 541 / 541 0.9 % Sodium Chloride 1,000 ML 1000 / 1000 @ 125 mls/hr IVC .Q8H JORDY Rx#: [id number] Heparin 25,000 UNIT/500 ML D5W 59 / 59 441 / 441 25,000 unit In 500 ml @ 8.3 UNIT/KG/HR 19.837 mls/hr IVC . Q24H JORDY Rx#:[id number] Ancef 1,000 MG In 0.9 % Sodium 100 / 100 100 / 100 Chloride (Mini-Bag +) 100 ML @ 200 mls/hr IVPB Q8HR JORDY Rx#: [id number] Oral 120 / 120 400 / 400 360 / 360 Output: Urine 1100 / 1100 1600 / 1600 800 / 800 Other: Meal Dinner Breakfast Percent of Meal Consumed 85% 100% Weight 118.2 kg Blood Glucose* 165 238 284 Patient Weight 12/23/17 23:59 Weight 118.2 kg General: Conversant, No Apparent Distress HEENT: Atraumatic, Normocephaly, Mucus Membranes Moist Neck: No JVD, Normal carotid pulses Cardiac: Reg Rate and Rhythm, Normal S1 and S2, No Murmur Lungs: Normal Breath Sounds, No Wheeze, Rales, Rhonchi Neuro: Alert and responsive, No focal deficits noted Abdomen: Soft, Non-Tender Skin: No rashes noted on visualized skin Musculoskeletal: No Chest Wall Tenderness Extremities: Other (LLE wound wrapped.) Results 12/23/17 04:49 12/23/17 04:49 Lab Results 12/22/17 12/23/17 12/23/17 15:59 04:49 04:49 WBC 9.3 Hgb 10.6 L Hct 30.8 L Plt Count 227 APTT 65.9 H Sodium 136 Potassium 4.2 Chloride 105 Carbon Dioxide 25 BUN 18 Creatinine 1.31 H Glucose 256 H Calcium 8.3 L Total Bilirubin 0.3 AST 23 ALT 22 Alkaline Phosphatase 83 Short CBC 12/23/17 Range/Units 04:49 WBC 9.3 (4.3-11.1) K/mcL Hgb 10.6 L (12.9-16.9) g/dL Hct 30.8 L (37.5-50.1) % Plt Count 227 (140-400) K/mcL Neutrophils # 6.3 (1.6-8.9) K/mcL BMP 12/23/17 Range/Units 04:49 Sodium 136 (136-145) mEq/L Potassium 4.2 (3.5-5.1) mEq/L Chloride 105 (98-107) mEq/L Carbon Dioxide 25 (23-29) mEq/L BUN 18 (6-20) mg/dL Creatinine 1.31 H (0.70-1.30) mg/dL Glucose 256 H (70-105) mg/dL Calcium 8.3 L (8.6-10.3) mg/dL Liver Function 12/23/17 Range/Units 04:49 Total Bilirubin 0.3 (0.3-1.0) mg/dL AST 23 (13-39) Units/L ALT 22 (7-52) Units/L Alkaline Phosphatase 83 (34-104) Units/L Albumin 2.9 L (3.5-5.7) g/dL Impressions Retroperitoneum Ultrasound 12/22/17 14:30 IMPRESSION: Increased echogenicity of the liver which can be seen in medical renal disease. Small post residual volume in the bladder. D/ / Megan Jeronimo MD / Megan Jeronimo MD Interpreting Provider: Megan Jeronimo MD Active Medications Acetaminophen (Tylenol) 650 mg PO Q6HR PRN PRN Reason: Mild Pain/Fever Stop: 06/18/18 23:14 Last Admin: 12/20/17 00:25 Dose: 650 mg Hydrocodone Bitart/Acetaminophen ([place] 5-325 Mg) 1 tab PO Q6HR PRN PRN Reason: Moderate Pain Stop: 06/19/18 01:55 Last Admin: 12/22/17 17:12 Dose: 1 tab Albuterol Sulfate (Proventil Neb) 2.5 mg IH [id number] PRN; Protocol PRN Reason: Shortness Of Breath/Wheezing Stop: 06/20/18 01:53 Last Admin: 12/22/17 18:09 Dose: 2.5 mg Amitriptyline HCl (Elavil) 25 mg PO HS JORDY Stop: 06/18/18 23:46 Last Admin: 12/22/17 21:57 Dose: 25 mg Amlodipine Besylate (Norvasc) 5 mg PO BID JORDY PRN Reason: Protocol Stop: 06/24/18 09:01 Last Admin: 12/23/17 08:34 Dose: 5 mg Aspirin (Aspirin Ec) 81 mg PO DAILY JORDY Stop: 06/18/18 23:46 Last Admin: 12/23/17 08:34 Dose: 81 mg Atorvastatin Calcium (Lipitor) 10 mg PO HS JORDY Stop: 06/18/18 23:46 Last Admin: 12/22/17 21:57 Dose: 10 mg Dextrose/Water (Dextrose 50% (Syg)) 25 ml IVP AD PRN PRN Reason: Hypoglycemia Stop: 06/18/18 23:22 Docusate Sodium (Colace) 100 mg PO DAILY PRN; Protocol PRN Reason: Constipation Stop: 06/22/18 13:42 Glucagon (Glucagen) 1 mg IM ONCE PRN PRN Reason: Hypoglycemia Stop: 06/18/18 23:22 Glucose (Gluctose) 15 gm PO ONCE PRN PRN Reason: Hypoglycemia Stop: 06/18/18 23:22 Glucose (Gluctose) 30 gm PO ONCE PRN PRN Reason: Hypoglycemia Stop: 06/18/18 23:22 Heparin Sodium (Porcine) (Heparin) 4,000 unit IVP Q6HR PRN PRN Reason: SEE COMMENTS Stop: 06/21/18 19:26 Last Admin: 12/21/17 12:52 Dose: 4,000 unit Heparin Sodium (Porcine) (Heparin) 2,000 unit IVP Q6H PRN PRN Reason: SEE COMMENTS Stop: 06/21/18 19:26 Last Admin: 12/21/17 19:26 Dose: 2,000 unit Dextrose (Dextrose 5%) 1,000 mls @ 100 mls/hr IVC .Q10H PRN PRN Reason: HYPOGLYCEMIA Stop: 06/18/18 23:22 Heparin Sodium/Dextrose (Heparin 25,000 Unit/500 Ml D5w) 25,000 unit in 500 mls @ 19.837 mls/hr IVC .Q24H JORDY; 8.3 UNIT/KG/HR PRN Reason: Protocol Stop: 06/21/18 19:31 Last Admin: 12/23/17 02:58 Dose: 20.37 unit/kg/hr, 48.7 mls/hr Cefazolin Sodium 1,000 mg/ (Sodium Chloride) 100 mls @ 200 mls/hr IVPB Q8HR JORDY PRN Reason: Protocol Stop: 06/23/18 16:01 Last Admin: 12/23/17 08:35 Dose: 200 mls/hr Insulin Detemir (Levemir) 25 unit SQ HS JORDY Stop: 06/19/18 21:01 Last Admin: 12/22/17 21:58 Dose: 25 unit Insulin Human Lispro (Humalog) 0 units SQ HS JORDY PRN Reason: Protocol Stop: 06/23/18 21:01 Last Admin: 12/22/17 21:58 Dose: Not Given Insulin Human Lispro (Humalog) 0 units SQ TIDAC JORDY PRN Reason: Protocol Stop: 06/23/18 16:31 Last Admin: 12/23/17 08:51 Dose: 8 units Lorazepam (Ativan) 0.5 mg IVP Q8H PRN PRN Reason: Anxiety Stop: 06/22/18 08:17 Last Admin: 12/22/17 18:21 Dose: 0.5 mg Melatonin (Melatonin) 3 mg PO HS PRN PRN Reason: Insomnia Stop: 06/23/18 00:44 Last Admin: 12/23/17 00:02 Dose: 3 mg Metoprolol Tartrate (Lopressor) 5 mg IVP Q6HR PRN PRN Reason: SEE COMMENTS Stop: 06/20/18 07:50 Last Admin: 12/22/17 04:39 Dose: 5 mg Metoprolol Tartrate (Lopressor) 100 mg PO BID JORDY Stop: 06/23/18 09:01 Last Admin: 12/23/17 08:32 Dose: 100 mg Naloxone HCl (Narcan) 0.4 mg IVP Q2MIN PRN PRN Reason: SEE COMMENTS Stop: 06/18/18 23:14 - Imaging and Cardiology Echo: report reviewed (12) - EKG Interpretation EKG results cardiology: other (12 hr tele AVG HR 93, SR) Consult Discharge Plan - Plan Referrals: Babak Lamas DO [Primary Care Provider] -
--- NOTE | 2017-12-23 14:11 | Podiatry Progress Note ---
Date of Encounter: 12/23/17 Time of Encounter: 12:00 - Assessment and Plan (1) Cellulitis and abscess of left leg Current Visit: Yes Status: Acute (2) Puncture wound Current Visit: Yes Status: Acute Assessment: Puncture wound of the plantar aspect of the left foot with tracking between toes #1 and #2 and to dorsal aspect of foot s/p Incision and drainage left foot, first interspace with debridement and biopsy12/20/17 per Sessions Removed dressing at bedside today Flushed wound with sterile saline, pat dry Assessed at bedside, erythema and edema remain to periwound area as well as slight darkening of skin at proximal wound base Drainage has decreased, pending wound appearance tomorrow will either place wound vac or return to OR for another washout of wound At this time encouraged to elevate when sitting and do not dangle, dependent edema noted to foot from sitting Continue antibiotics per ID, cefazolin Q8, ID states likely 6 weeks of treatment needed, MSSA growth within wound, BC NTD PT/OT consult if not already done. SW consult for discharge planning Minimal weight bearing to heel only. Repacked wound with sterile iodoform, 4x4 and kerliex applied, patient tolerated well Patient has had other cardiac events he is being managed for at this time. WBC 9.3 and afebrile. at bedside. Continue with wound packing as ordered Subjective Principal diagnosis: Left foot infection Interval history: Patient is s.p incision and drainage left foot, first interspace with debridement and biopsy per Sessions on 12/20/17. Patient resting comfortably up to chair on arrival. Foot dangling in prevalon boot. Dressing intact however is it sliding off as nurse did not wrap it around the ankle, states this has been an issue with the night nurse, states it keeps coming off. Patient is neuropathic and denies any pain. States that overall he does feel better. Denies any chills, n/v or flu like symptoms. Denies calf pain or SOB. No drainage noted to dressing at this time. Patient assisted back to bed for dressing change. Objective - Vital Signs Vital Signs: Vital Signs Temp Pulse Resp BP Pulse Ox 12/23/17 11:26 98.1 F 88 15 163/89 93 12/23/17 07:29 98.7 F 91 16 169/98 96 12/23/17 05:19 98.4 F 98 16 175/93 97 12/23/17 00:00 98.7 F 88 16 137/89 99 12/22/17 22:15 94 12/22/17 20:00 98.7 F 93 17 152/83 96 12/22/17 18:11 15 98 12/22/17 14:35 97.8 F 83 15 140/89 98 Intake and Output 12/22/17 12/23/17 12/23/17 23:59 07:59 15:59 Intake Total 1279 / 1279 941 / 941 360 / 360 Output Total 1100 / 1100 1600 / 1600 800 / 800 Balance 179 / 179 -659 / -659 -440 / -440 Intake: IV Fluids 1159 / 1159 541 / 541 0.9 % Sodium Chloride 1,000 ML 1000 / 1000 @ 125 mls/hr IVC .Q8H JORDY Rx#: [id number] Heparin 25,000 UNIT/500 ML D5W 59 / 59 441 / 441 25,000 unit In 500 ml @ 8.3 UNIT/KG/HR 19.837 mls/hr IVC . Q24H JORDY Rx#:[id number] Ancef 1,000 MG In 0.9 % Sodium 100 / 100 100 / 100 Chloride (Mini-Bag +) 100 ML @ 200 mls/hr IVPB Q8HR JORDY Rx#: [id number] Oral 120 / 120 400 / 400 360 / 360 Output: Urine 1100 / 1100 1600 / 1600 800 / 800 Other: Meal Dinner Breakfast Percent of Meal Consumed 85% 100% Weight 118.2 kg Blood Glucose* 165 238 284 Patient Weight 12/23/17 23:59 Weight 118.2 kg - Exam Exam: Podiatry General Exam: General appearance: alert awake oriented X 3. Calm and pleasant, no acute distress.. Vascular: Pedal pulses +2/4 DP/PT , No evidence of cyanosis, pallor or rubor, Edema graded at 1+/4, Skin Temperature warm, No calf pain with manual compression. capillary refill time is immediate to digits. Neurologic: Loss of sensation to light or moderate touch Postop Exam: S/P I&D of foot abscess Open incision line [id number]. 50% healthy granulation tissue noted to base, 50% yellow fibrous tissue. Scant serous drainage. No odor. No sinus tracts or tunneling. There remains to be moderate periwound edema and erythema as well as warmth. No fluctuance noted. At proximal border of wound there is slight skin darkening noted consistent with possible compromise of tissue, will continue to monitor for worsening. Area measures 0.3cmx0.2cm and another 8q3fop0.2cm area at proximal base. No ulceration. . - Lab Result Diagrams: 12/23/17 04:49 12/23/17 04:49 Labs: Abnormal lab results RBC 3.37 M/mcL (4.19-5.50) L 12/23/17 04:49 Hgb 10.6 g/dL (12.9-16.9) L 12/23/17 04:49 Hct 30.8 % (37.5-50.1) L 12/23/17 04:49 Immature Gran % 4.3 % (0-4) H 12/22/17 01:24 Metamyelocytes % 2.0 % (0) H 12/23/17 04:49 Myelocytes % 2.0 % (0) H 12/23/17 04:49 APTT 65.9 Seconds (26.0-36.0) H 12/22/17 15:59 ABG pH 7.46 pH Units (7.32-7.45) H 12/20/17 18:20 ABG pCO2 33 mmHg (35-45) L 12/20/17 18:20 ABG pO2 70 mmHg (85-104) L 12/20/17 18:20 Creatinine 1.31 mg/dL (0.70-1.30) H 12/23/17 04:49 Est GFR (Non-Af Amer) 58 (> 60) L 12/23/17 04:49 Glucose 256 mg/dL (70-105) H 12/23/17 04:49 POC Glucose 165 mg/dL (70-99) H 12/22/17 20:41 Hemoglobin A1c 9.5 % (-5.6) H 12/17/17 20:13 Calcium 8.3 mg/dL (8.6-10.3) L 12/23/17 04:49 Troponin I 0.44 ng/mL (< 0.04) H* 12/21/17 12:43 Albumin 2.9 g/dL (3.5-5.7) L 12/23/17 04:49 Albumin/Globulin Ratio 0.8 (1.1-2.2) L 12/23/17 04:49 Microbiology, Last 48 Hours 12/18/17 17:19 Anaerobic Culture - Final Left Foot No anaerobes were recovered. 12/20/17 12:00 Anaerobic Culture - Preliminary Left Foot At this time, no anaerobic growth is present. The culture will be finalized after 5 days of incubation. 12/20/17 12:00 Wound Culture - Final Left Foot Staphylococcus aureus 12/20/17 18:28 Blood Culture - Preliminary Peripheral Venipuncture No growth. 12/20/17 18:28 Blood Culture - Preliminary Peripheral Venipuncture No growth. Consult Discharge Plan - Plan Referrals: Babak Lamas DO [Primary Care Provider] -
--- NOTE | 2017-12-23 15:33 | Urology - Consult Note ---
Date of Encounter: 12/23/17 Time of Encounter: 15:31 - Assessment and Plan (1) Urinary retention Current Visit: Yes Status: Acute Assessment and plan: At this time the patient does have a elevated post void residual on recent renal ultrasound. At this point I am going to obtain a bladder scan PVR after next void. If the patient remains with elevated residual may consider catheter placement. Patient is not too keen on having a catheter placed at this time. (2) RANDY (acute kidney injury) Current Visit: Yes Status: Resolved Assessment and plan: Had improved but now has leveled off slightly above normal. We will keep a close eye on this. Urology CN:HPI Consult date: 12/23/17 Reason for consult Urology: Other (urinary retention) Requesting physician: Elvis James History of present illness: Peep is a 47-year-old male with history of recent renal ultrasound which revealed a slightly elevated postvoid residual. Patient has also been having slightly elevated serum creatinine which has failed to complete the resolved. I was asked by the department of natural resources officer to evaluate this patient. At this time the patient feels as though he empties his bladder adequately. He does not feel that he is retaining urine. Patient does have nocturia 1-2 times per night but this is normal for the patient. No current dysuria or gross hematuria. Past Med Surg Social Fam HX - Past Medical History Medical history: CHF, COPD, coronary artery disease, diabetes, GERD, hyperlipidemia, myocardial infarction Psychiatric history: no psych history - Past Surgical History Surgical History: angioplasty/stent - Social History Smoking Status: Former smoker Smokeless Tobacco Status: No Alcohol use: none Drug use: none - Family History Father History Unknown: Yes Family Member Ethnicity: Non- Living Status: Hx Family Cardiac Disorders: Yes (HTN) Hx Family Endocrine Disorder: Yes (DM) Sister History Unknown: Yes Family Member Ethnicity: Non- Living Status: Still Living Hx Family Endocrine Disorder: Yes (DM) Brother History Unknown: Yes Family Member Ethnicity: Non- Living Status: Still Living Hx Family Cardiac Disorders: Yes (DE Age 50) Hx Family Endocrine Disorder: Yes (DM) Mother History Unknown: Yes Family Member Ethnicity: Non- Living Status: Hx Family Cardiac Disorders: Yes (HD) Hx Family Endocrine Disorder: Yes (DM) Medications and Allergies Furosemide [Lasix] 40 mg PO DAILY #30 tablet 11/10/15 [Rx] Lisinopril [Zestril] 10 mg PO DAILY #30 tablet 11/10/15 [Rx] Metformin HCl [Metformin HCl ER] 1,000 mg PO BID 01/04/16 [History] Amitriptyline [Elavil] 25 mg PO HS 03/16/17 [History] Aspirin [Lo-Dose Aspirin EC] 81 mg PO DAILY 12/17/17 [History] Insulin NPH Human Isophane [Novolin N] 15 unit SQ BID 12/17/17 [History] Lovastatin [Mevacor] 40 mg PO HS 12/17/17 [History] Metoprolol Tartrate [Lopressor] 50 mg PO BID 12/17/17 [History] 3 Allergy/AdvReac Type Severity Reaction Status Date / Time No Known Allergies Allergy Verified 12/17/17 21:55 Review of Systems - Constitutional no chills, no fever(s) - EENT Nose, mouth and throat: no dizziness, no headache(s) - Cardiovascular no chest pain - Respiratory no cough - Gastrointestinal no abdominal pain, no nausea, no vomiting - Genitourinary as per HPI - Musculoskeletal no back pain, no muscle weakness - Integumentary swelling, no erythema - Neurological no confusion - Psychiatric no anxiety, no depression - Hematologic/Lymphatic no easy bleeding, no lymphadenopathy Exam Initial Vital Signs Temp Pulse Resp BP Pulse Ox 100.0 F H 110 18 92/58 97 12/17/17 19:51 12/17/17 19:51 12/17/17 19:51 12/17/17 19:51 12/17/17 19:51 General/Neuological: alert and oriented x 3 Eyes: normal pupils, non-icteric Neck: no lymphadenopathy noted, supple to touch Cardiovascular: RRR, no murmurs Respiratory: normal respiratory effort, clear bilaterally ABD: soft, nontender, no masses palpated, good bowel sounds Back: no pain on percussion bilaterally : normal phallus, normal scrotum, testicles and epididymides normal, urethral meatus normal. Skin: no rashes noted Musculoskeletal: normal gait, FROMx4 Urology Results - Labs 12/23/17 04:49 12/23/17 04:49 Abnormal lab results RBC 3.37 M/mcL (4.19-5.50) L 12/23/17 04:49 Hgb 10.6 g/dL (12.9-16.9) L 12/23/17 04:49 Hct 30.8 % (37.5-50.1) L 12/23/17 04:49 Immature Gran % 4.3 % (0-4) H 12/22/17 01:24 Metamyelocytes % 2.0 % (0) H 12/23/17 04:49 Myelocytes % 2.0 % (0) H 12/23/17 04:49 APTT 65.9 Seconds (26.0-36.0) H 12/22/17 15:59 ABG pH 7.46 pH Units (7.32-7.45) H 12/20/17 18:20 ABG pCO2 33 mmHg (35-45) L 12/20/17 18:20 ABG pO2 70 mmHg (85-104) L 12/20/17 18:20 Creatinine 1.31 mg/dL (0.70-1.30) H 12/23/17 04:49 Est GFR (Non-Af Amer) 58 (> 60) L 12/23/17 04:49 Glucose 256 mg/dL (70-105) H 12/23/17 04:49 POC Glucose 165 mg/dL (70-99) H 12/22/17 20:41 Hemoglobin A1c 9.5 % (-5.6) H 12/17/17 20:13 Calcium 8.3 mg/dL (8.6-10.3) L 12/23/17 04:49 Troponin I 0.44 ng/mL (< 0.04) H* 12/21/17 12:43 Albumin 2.9 g/dL (3.5-5.7) L 12/23/17 04:49 Albumin/Globulin Ratio 0.8 (1.1-2.2) L 12/23/17 04:49 Diabetes panel 12/23/17 Range/Units 04:49 Sodium 136 (136-145) mEq/L Potassium 4.2 (3.5-5.1) mEq/L Chloride 105 (98-107) mEq/L Carbon Dioxide 25 (23-29) mEq/L BUN 18 (6-20) mg/dL Creatinine 1.31 H (0.70-1.30) mg/dL Glucose 256 H (70-105) mg/dL Calcium 8.3 L (8.6-10.3) mg/dL AST 23 (13-39) Units/L ALT 22 (7-52) Units/L Alkaline Phosphatase 83 (34-104) Units/L Albumin 2.9 L (3.5-5.7) g/dL Calcium panel 12/23/17 Range/Units 04:49 Calcium 8.3 L (8.6-10.3) mg/dL Albumin 2.9 L (3.5-5.7) g/dL Pituitary panel 12/23/17 Range/Units 04:49 Sodium 136 (136-145) mEq/L Potassium 4.2 (3.5-5.1) mEq/L Chloride 105 (98-107) mEq/L Carbon Dioxide 25 (23-29) mEq/L BUN 18 (6-20) mg/dL Creatinine 1.31 H (0.70-1.30) mg/dL Glucose 256 H (70-105) mg/dL Calcium 8.3 L (8.6-10.3) mg/dL Adrenal panel 12/23/17 Range/Units 04:49 Sodium 136 (136-145) mEq/L Potassium 4.2 (3.5-5.1) mEq/L Chloride 105 (98-107) mEq/L Carbon Dioxide 25 (23-29) mEq/L BUN 18 (6-20) mg/dL Creatinine 1.31 H (0.70-1.30) mg/dL Glucose 256 H (70-105) mg/dL Calcium 8.3 L (8.6-10.3) mg/dL Total Bilirubin 0.3 (0.3-1.0) mg/dL AST 23 (13-39) Units/L ALT 22 (7-52) Units/L Alkaline Phosphatase 83 (34-104) Units/L Albumin 2.9 L (3.5-5.7) g/dL All other labs normal. Consult Discharge Plan - Plan Referrals: Babak Lamas DO [Primary Care Provider] -
[2017-12-23] MEDS: *HR* LORazepam 2 MG/ML VIAL IVP PRN (15:53)
[2017-12-23] MEDS: *HR* Heparin 5,000 UNIT/ML VIAL SQ SCH (18:39)
[2017-12-23] MEDS ORDERED: 0.9 % Sodium Chloride 1,000 ML IVC SCH (20:00)
[2017-12-23] MEDS: Insulin DETEMIR 100 UNIT/ML X5UNITS SQ SCH (20:42)
[2017-12-24] MEDS: ceFAZolin 1,000 MG in 0.9 % Sodium Chloride Mini Bag 100 ML IVPB SCH ×2 (00:02→08:33)
[2017-12-24 05:11] LABS: Eosinophils # 0.4 K/mcL (0.0-0.6); Hematocrit 28.6 % (37.5-50.1); Hemoglobin 9.9 g/dL (12.9-16.9); Mean Corpuscular HGB Conc 34.6 g/dL (31.6-35.5); Mean Corpuscular Hemoglobin 31.3 pg (28.0-33.3); Mean Corpuscular Volume 90.5 fL (83.0-100.0); Mean Platelet Volume 11.2 fL (9.4-12.4); Platelet Count 246 K/mcL (140-400); Red Blood Count 3.16 M/mcL (4.19-5.50); Red Cell Distribution Width 12.9 % (11.5-14.5)
[2017-12-24 05:27] LABS: Alanine Aminotransferase 21 Units/L (7-52); Albumin 2.8 g/dL (3.5-5.7); Albumin/Globulin Ratio 0.8 (1.1-2.2); Alkaline Phosphatase 74 Units/L (34-104); Aspartate Amino Transferase 23 Units/L (13-39); BUN/Creatinine Ratio 15 (6-26); Bilirubin,Total 0.3 mg/dL (0.3-1.0); Blood Urea Nitrogen 17 mg/dL (6-20); Calcium 8.5 mg/dL (8.6-10.3); Carbon Dioxide 25 mEq/L (23-29); Chloride 108 mEq/L (98-107); Globulin 3.7 g/dL (2.4-3.5); Glucose 91 mg/dL (70-105); Osmolality,Calculated 291 (280-300); Potassium 3.6 mEq/L (3.5-5.1); Sodium 140 mEq/L (136-145); Total Protein 6.5 g/dL (6.4-8.9); eGFR For African Americans > 60 (> 60); eGFR For Non-African Americans > 60 (> 60)
[2017-12-24 06:08] LABS: Lymphocytes # 0.8 K/mcL (0.6-4.6); Monocytes # 0.4 K/mcL (0.0-1.3); Neutrophils # 8.1 K/mcL (1.6-8.9)
[2017-12-24 06:09] LABS: Large Platelets Present (Not Present); Platelet Estimate Normal (Normal); Toxic Granulation Present (Not Present)
[2017-12-24] MEDS: *HR* Heparin 5,000 UNIT/ML VIAL SQ SCH ×2 (06:29→16:59)
--- NOTE | 2017-12-24 07:54 | Pre-Sedation Evaluation ---
Pre-sedation evaluation - Pre-sedation checklist Date of procedure: 12/20/17 Procedure: [facility] Recent Vitals: Last Vital Signs Temp 98.2 F 12/24/17 05:46 Pulse 93 12/24/17 05:46 Resp 20 12/24/17 05:46 BP 168/97 12/24/17 05:53 Pulse Ox 95 12/24/17 05:46 H&P (including ROS) documented in medical record: No Previous reaction to sedatives/anesthetics: No Dietary Status: NPO after Midnight Dentition: No loose teeth or bridges ASA Classification *see protocol: CLASS II-Mild systemic disease Plan of Care: Pt appropriate candidate for procedure/moderate/conscious sedation , Risks/benefits of procedure/sedation discussed w/ patient/family
[2017-12-24] MEDS: Insulin LISPRO 300 UNITS/3 ML VIAL SQ SCH ×4 (08:32→22:02)
[2017-12-24] MEDS: amLODIPine 5 MG TABLET PO SCH ×2 (08:34→22:03)
[2017-12-24] MEDS: Metoprolol 100 MG TABLET PO SCH ×2 (08:34→22:03)
[2017-12-24] MEDS: Aspirin Enteric Coated 81 MG Tablet PO SCH (08:34)
--- NOTE | 2017-12-24 08:44 | Internal Med Progress Note ---
<Felix Melendrez - Last Filed: 12/24/17 17:17> Date of Encounter: 12/24/17 Time of Encounter: 08:10 - Assessment and plan (1) Severe sepsis Current Visit: Yes Status: Acute Assessment and plan: 3 SIRS criteria on admission: Fever, tachycardia, leukocytosis, Randy suspected source of infection: left lower extremity cellulitis left foot CT showed severe cellulitis of the left foot, left ankle without discrete agonized fluid collection, no acute fracture or gross dislocation, no aggressive osseous destruction, no obvious foreign body identified. In the emergency department, patient received 2 fluid boluses with appropriate increase in blood pressure. He also received one dose vancomycin, one dose Zosyn, one dose ciprofloxacin. Leukocytosis resolved Tachycardia improved today Blood cultures NGTD, repeat blood cultures (after being febrile) no growth to date Wound cultures: MSSA on two occasions - Vanc discontinued MSSA - Patient was treated towards MSSA alone. He was febrile two nights ago and so Levaquin was added at that time. ID is now on board, recommend Continued cefazolin Will require PICC for long-term IV Antibiotics (2) Cellulitis Current Visit: Yes Status: Acute Assessment and plan: Plan as above Qualifiers: Site of cellulitis: extremity Site of cellulitis of extremity: lower extremity Laterality: left Qualified Code(s): L03.116 - Cellulitis of left lower limb (3) Ischemic cardiomyopathy Current Visit: Yes Status: Suspected Assessment and plan: HFrEF with minimal fluid overload Patient continues to have some orthopnea Echo shows LVEF 35-40%, mild LV diastolic dysfunction Cardiology on board, plan for [facility] when cleared by nephrology Per cardiology, stop heparin drip, continue BB, ASA, Statin. Hold ACEi due to kidney function (4) Diabetes mellitus, type II, insulin dependent Current Visit: Yes Status: Chronic Assessment and plan: History of uncontrolled type II diabetes continue basal and medium dose sliding scale insulin - weight based and adjust as needed ADA diet - currently NPO for [facility] Goal inpatient setting is <180. (5) HLD (hyperlipidemia) Current Visit: No Status: Chronic Assessment and plan: Continue home Statin Qualifiers: Hyperlipidemia type: mixed hyperlipidemia Qualified Code(s): E78.2 - Mixed hyperlipidemia (6) HTN (hypertension) Current Visit: Yes Status: Chronic Assessment and plan: Continue home beta shira, hold lisinopril due to renal function - Increased metoprolol to 100 mg BID Qualifiers: Hypertension type: essential hypertension Qualified Code(s): I10 - Essential (primary) hypertension (7) RANDY (acute kidney injury) Current Visit: Yes Status: Resolved Assessment and plan: Likely secondary to sepsis and IV contrast Seems to be improving each day, current serum creatinine 1.13 Per nephrology, the patient is at baseline Check BMP in morning (8) Atrial flutter with rapid ventricular response Current Visit: Yes Status: Acute Assessment and plan: - Likely caused by severe sepsis, rate controlled at this time Echocardiogram 12/21/17: LVEF 35-40% which is worse than prior echo in 2016. No valvular dysfunction. Was previously on heparin drip, may require long-term anticoagulation (9) DVT prophylaxis Current Visit: No Status: Acute Assessment and plan: SQ Heparin (10) NSTEMI (non-ST elevated myocardial infarction) Current Visit: Yes Status: Acute Assessment and plan: Elevated troponins on arrival Patient underwent LHC with PCI to the RCA today Remaining disease was not altered in any way Management per cardiology - Time Spent With Patient Total time spent is greater than 50% in coordination of care (as documented) at patient's floor/unit and/or counseling patient: - Subjective Interval history: The patient is seen and examined at bedside. He is lying down having his dressing changed at the time of exam, and he says that he's feeling well. He says his pain is well controlled, and that he is not having any acute complaints. - Constitutional Vitals: Temp Pulse Resp BP Pulse Ox 97.6 F 102 20 174/99 93 12/24/17 08:02 12/24/17 08:02 12/24/17 08:02 12/24/17 08:02 12/24/17 08:02 General appearance: Present: A&O X 3, no acute distress, answers questions appropriately Exam: Gen: Vitals noted. No acute distress. HEENT: Normocephalic, atraumatic Neck: Supple. No adenopathy. Cardiac: RRR, no murmur, +S1/S2 Pulmonary: CTA bilaterally, no wheezes, rales or rhonchi, equal chest expansion Abdomen: soft, nontender, BS noted, no guarding Back: Nontender throughout. MSK: ROM intact, no joint swelling noted Extremities: Trace bilateral lower extremity edema with worsened edema on the left leg which goes to the mid tibia. Mildly increased warmth and left lower extremity. There is a large wound between the first and second metatarsals that is uncovered without any purulent material or drainage Neuro: A&Ox3, moves all extremities, no focal deficits Psych: Appropriate mood and behavior Internal Medicine: Result - Labs CBC & Chem 7: 12/24/17 04:19 12/24/17 04:19 Labs: Short CBC 12/24/17 Range/Units 04:19 WBC 10.1 (4.3-11.1) K/mcL Hgb 9.9 L (12.9-16.9) g/dL Hct 28.6 L (37.5-50.1) % Plt Count 246 (140-400) K/mcL Neutrophils # 8.1 (1.6-8.9) K/mcL BMP 12/24/17 04:19 Sodium 140 Potassium 3.6 Chloride 108 H Carbon Dioxide 25 BUN 17 Creatinine 1.13 Glucose 91 Calcium 8.5 L Liver Function 12/24/17 Range/Units 04:19 Total Bilirubin 0.3 (0.3-1.0) mg/dL AST 23 (13-39) Units/L ALT 21 (7-52) Units/L Alkaline Phosphatase 74 (34-104) Units/L Albumin 2.8 L (3.5-5.7) g/dL - ABG Interpretation ABG results: ABG ABG pH 7.46 pH Units (7.32-7.45) H 12/20/17 18:20 ABG pCO2 33 mmHg (35-45) L 12/20/17 18:20 ABG pO2 70 mmHg (85-104) L 12/20/17 18:20 ABG O2 Saturation 95 % (95-98) 12/20/17 18:20 PT/INR, D-dimer PT 11.8 Seconds (9.4-12.1) 12/20/17 19:44 Consult Discharge Plan - Plan Referrals: Babak Lamas DO [Primary Care Provider] - Avel Holcomb MD [Partnered Physician] - 01/08/18 1:30 pm <Warren Fuchs - Last Filed: 12/24/17 18:38> Date of Encounter: 12/24/17 - Assessment and plan (1) Cellulitis Current Visit: Yes Status: Acute Qualifiers: Site of cellulitis: extremity Site of cellulitis of extremity: lower extremity Laterality: left Qualified Code(s): L03.116 - Cellulitis of left lower limb (2) NSTEMI (non-ST elevated myocardial infarction) Current Visit: Yes Status: Acute (3) Ischemic cardiomyopathy Current Visit: Yes Status: Suspected (4) Diabetes Current Visit: Yes Status: Chronic Qualifiers: Diabetes mellitus type: type 2 Diabetes mellitus custodial insulin use: with extermination supervisor use Diabetes mellitus complication status: with neurologic complications Diabetes mellitus complication detail: with polyneuropathy Qualified Code(s): E11.42 - Type 2 diabetes mellitus with diabetic polyneuropathy; Z79.4 - extermination supervisor (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 (5) Diabetes mellitus, type II, insulin dependent Current Visit: Yes Status: Chronic (6) HLD (hyperlipidemia) Current Visit: No Status: Chronic Qualifiers: Hyperlipidemia type: mixed hyperlipidemia Qualified Code(s): E78.2 - Mixed hyperlipidemia (7) HTN (hypertension) Current Visit: Yes Status: Chronic Qualifiers: Hypertension type: essential hypertension Qualified Code(s): I10 - Essential (primary) hypertension (8) RANDY (acute kidney injury) Current Visit: Yes Status: Resolved (9) Severe sepsis Current Visit: Yes Status: Acute (10) Atrial flutter with rapid ventricular response Current Visit: Yes Status: Acute (11) DVT prophylaxis Current Visit: No Status: Acute (12) Osteomyelitis Current Visit: Yes Status: Acute Qualifiers: Osteomyelitis type: other acute Osteomyelitis location: foot Laterality: left Qualified Code(s): M86.172 - Other acute osteomyelitis, left ankle and foot - Time Spent With Patient Total time spent is greater than 50% in coordination of care (as documented) at patient's floor/unit and/or counseling patient: - Constitutional Vitals: Temp Pulse Resp BP Pulse Ox 97.8 F 88 20 172/98 93 12/24/17 15:46 12/24/17 15:55 12/24/17 15:46 12/24/17 15:55 12/24/17 15:46 Internal Medicine: Result - Labs CBC & Chem 7: 12/24/17 04:19 12/24/17 04:19 Labs: Short CBC 12/24/17 Range/Units 04:19 WBC 10.1 (4.3-11.1) K/mcL Hgb 9.9 L (12.9-16.9) g/dL Hct 28.6 L (37.5-50.1) % Plt Count 246 (140-400) K/mcL Neutrophils # 8.1 (1.6-8.9) K/mcL BMP 12/24/17 04:19 Sodium 140 Potassium 3.6 Chloride 108 H Carbon Dioxide 25 BUN 17 Creatinine 1.13 Glucose 91 Calcium 8.5 L Liver Function 12/24/17 Range/Units 04:19 Total Bilirubin 0.3 (0.3-1.0) mg/dL AST 23 (13-39) Units/L ALT 21 (7-52) Units/L Alkaline Phosphatase 74 (34-104) Units/L Albumin 2.8 L (3.5-5.7) g/dL - ABG Interpretation ABG results: ABG ABG pH 7.46 pH Units (7.32-7.45) H 12/20/17 18:20 ABG pCO2 33 mmHg (35-45) L 12/20/17 18:20 ABG pO2 70 mmHg (85-104) L 12/20/17 18:20 ABG O2 Saturation 95 % (95-98) 12/20/17 18:20 PT/INR, D-dimer PT 11.8 Seconds (9.4-12.1) 12/20/17 19:44 - Attending Attestation I examined this patient and my medical decision-making was reviewed with the Resident Physician on 12/24/17. I agree with the documented findings, disposition and treatment plan as described except to the extent set forth below. Mr Vargas is currently admitted for NSTEMI and cellulitis with abscess. He remains moderate to high risk due to potential for worsening clinical status. Mr Vargas had PTCA today. No fever or chills. No GI issues. No CP or SOB. Exam alert Comfortable Mucus membranes dry Heart not tachy No wheeze Dressing intact I/P 1. NSTEMI 2. Cellulitis 3. DM Further diagnoses and plan as above.
--- NOTE | 2017-12-24 09:25 | Event Note ---
Date of Encounter: 12/24/17 Time of Encounter: 09:25 The patient's renal function has returned to normal. Blood pressure remains elevated. I am going to start the patient on losartan. Nephrology will sign off please call again if needed.
[2017-12-24] MEDS ORDERED: D5% in 0.45% NACL 1,000 ML IVC SCH (10:15)
--- NOTE | 2017-12-24 10:37 | Infectious Disease Progress No ---
Date of Encounter: 12/24/17 Time of Encounter: 10:21 - Assessment and Plan (1) Severe sepsis Current Visit: Yes Status: Acute Patient presented with 3 out of 4 SIRS criteria with fever, tachycardia, leukocytosis. Resolved at this time. Cause is infected traumatic puncture wound of left foot. Lactic acidosis present on admission, has since normalized. Received IV fluid hydration, antibiotics. Further treatment of infection as discussed below. Blood cultures drawn 12/17/17 are negative x 2 sets and 12/20/17 are NGTD x 2 sets. (2) Osteomyelitis Current Visit: Yes Status: Acute Causative organism: MSSA. Source: Traumatic puncture wound. Status post incision and drainage 12/20/[address] Kimble. Operative note reviewed. Evidence of purulent material contacting bone concerning for early osteomyelitis. No weak or damage bone was noted. Intra-op cultures positive for MSSA. No specimen sent to pathology. Check ESR and CRP. Continue cefazolin, but increase to 2 grams IV Q8H with normalization of CrCl ( 68). Duration of treatment depends on the clinical picture, but likely 6 weeks. Monitor renal function and dose-adjust antibiotics. Consult VAT for PICC line placement. shared services and outsourcing manager to assist with discharge planning. Will need weekly CBC, BUN/Cr, ESR, CRP. Will need weekly IV care per protocol. Follow up with ID 01/08/18 at 1330. Qualifiers: Osteomyelitis type: other acute Osteomyelitis location: foot Laterality: left Qualified Code(s): M86.172 - Other acute osteomyelitis, left ankle and foot (3) Cellulitis and abscess of left leg Current Visit: Yes Status: Acute Secondary to traumatic puncture wound. Plan as above. Patient reports Tdap UTD. (4) Puncture wound Current Visit: Yes Status: Acute Due to stepping on a nail. Exacerbated by diabetic neuropathy. (5) Heart failure Current Visit: Yes Status: Acute TTE showed low EF. Cardiology consulted and following. Concern for ICM. Plan for [facility] later today. Qualifiers: Heart failure type: combined systolic and diastolic Heart failure chronicity: acute on chronic Qualified Code(s): I50.43 - Acute on chronic combined systolic (congestive) and diastolic (congestive) heart failure (6) NSTEMI (non-ST elevated myocardial infarction) Current Visit: Yes Status: Acute Per cardiology, likely demand ischemia given lack of ACS symptoms. Further management per primary/cardiology. (7) Diabetes mellitus, type II, insulin dependent Current Visit: Yes Status: Chronic Uncontrolled. HgbA1C 9.5%. Recommend aggressive glucose monitoring and control to promote wound healing and prevent re-infection. - Subjective Interval history: Patient seen and examined with nursing at bedside during dressing change. No acute events noted overnight. Patient scheduled for [facility] later today. Denies fevers, chills, or rigors. Denies chest pain, shortness of breath, or cough. Denies nausea, vomiting, or diarrhea. Reports last BM was yesterday. Denies abdominal pain, urinary complaints, or appetite changes. Denies pain at the surgical site. Denies oral thrush or skin lesions. Infect Dis PN-Objective Data - Labs CBC & Chem 7: 12/24/17 04:19 12/24/17 04:19 Labs: Laboratory Results - last 24 hr 12/23/17 12/23/17 12/24/17 07:31 11:27 04:19 WBC RBC Hgb Hct MCV MCH MCHC RDW Plt Count MPV Seg Neutrophils % Band Neutrophils % Lymphocytes % Monocytes % Eosinophils % Myelocytes % Neutrophils # Lymphocytes # Monocytes # Eosinophils # Toxic Granulation Platelet Estimate Large Platelets Sodium 140 Potassium 3.6 Chloride 108 H Carbon Dioxide 25 BUN 17 Creatinine 1.13 Est GFR ( Amer) > 60 Est GFR (Non-Af Amer) > 60 BUN/Creatinine Ratio 15 Glucose 91 POC Glucose 238 H 284 H Calculated Osmolality 291 Calcium 8.5 L Total Bilirubin 0.3 AST 23 ALT 21 Alkaline Phosphatase 74 Serum Total Protein 6.5 Albumin 2.8 L Globulin 3.7 H Albumin/Globulin Ratio 0.8 L 12/24/17 04:19 WBC 10.1 RBC 3.16 L Hgb 9.9 L Hct 28.6 L MCV 90.5 MCH 31.3 MCHC 34.6 RDW 12.9 Plt Count 246 MPV 11.2 Seg Neutrophils % 76.0 Band Neutrophils % 4.0 Lymphocytes % 8.0 Monocytes % 4.0 Eosinophils % 4.0 Myelocytes % 4.0 H Neutrophils # 8.1 Lymphocytes # 0.8 Monocytes # 0.4 Eosinophils # 0.4 Toxic Granulation Present A Platelet Estimate Normal Large Platelets Present A Sodium Potassium Chloride Carbon Dioxide BUN Creatinine Est GFR ( Amer) Est GFR (Non-Af Amer) BUN/Creatinine Ratio Glucose POC Glucose Calculated Osmolality Calcium Total Bilirubin AST ALT Alkaline Phosphatase Serum Total Protein Albumin Globulin Albumin/Globulin Ratio Cultures: Cultures 12/18/17 17:19 Anaerobic Culture - Final Left Foot No anaerobes were recovered. 12/20/17 12:00 Anaerobic Culture - Preliminary Left Foot At this time, no anaerobic growth is present. The culture will be finalized after 5 days of incubation. 12/20/17 12:00 Wound Culture - Final Left Foot Staphylococcus aureus 12/20/17 18:28 Blood Culture - Preliminary Peripheral Venipuncture No growth. 12/20/17 18:28 Blood Culture - Preliminary Peripheral Venipuncture No growth. 12/18/17 17:19 Wound Culture - Final Left Foot Staphylococcus aureus Serology 12/22/17 12/18/17 12/18/17 Range/Units 13:43 16:29 16:24 Ur Eosinophil Smear 0 (None Seen) % Urine Creatinine 99 mg/dL Urine Urea Nitrogen 380 mg/dL Exam - Constitutional Vitals: Temp Pulse Resp BP Pulse Ox 97.6 F 102 20 174/99 93 12/24/17 08:02 12/24/17 08:02 12/24/17 08:02 12/24/17 08:02 12/24/17 08:02 General appearance: cooperative, no acute distress, obese - Head Head exam: Present: atraumatic, normal inspection, normocephalic - Eye Eye exam: Present: EOMI, normal appearance, PERRL Pupils: Present: normal accommodation - ENT ENT exam: Present: mucous membranes moist - Neck Neck exam: Present: normal inspection - Respiratory Respiratory exam: Present: CTAB. Absent: rales, respiratory distress, rhonchi, wheezes - Cardiovascular Cardiovascular exam: Present: RRR, +S1, +S2 - GI/Abdominal GI/Abdominal exam: Present: distended (obese), normal bowel sounds, soft. Absent: tenderness - Extremities Exam Extremities exam: Present: pedal edema. Absent: joint swelling, tenderness Additional comments: Left foot surgical site noted to the first web space with packing intact. Mild erythema noted. No foul odor or purulent drainage noted. - Neurological Exam Neurological exam: Present: alert, oriented X3, no focal deficits - Psychiatric Psychiatric exam: Present: normal affect, normal mood - Skin Skin exam: Present: dry, intact, normal color, warm Consult Discharge Plan - Plan Referrals: Babak Lamas DO [Primary Care Provider] - Avel Holcomb MD [Partnered Physician] - 01/08/18 1:30 pm - Attending Attestation I examined this patient and my medical decision-making was reviewed with the Resident Physician. I agree with the documented findings, disposition and treatment plan as described except to the extent set forth below.
[2017-12-24] MEDS ORDERED: Verapamil 5 MG/2 ML VIAL ONE (11:21)
[2017-12-24] MEDS ORDERED: ISOVUE-370 200 ML INFUS..BTL IV ONE (11:21)
[2017-12-24] MEDS ORDERED: Heparin 1,000 UNITS/500 mL 500 ML ONE (11:21)
[2017-12-24] MEDS ORDERED: *HR* Heparin 10,000 UNIT/10 ML VIAL ONE (11:21)
[2017-12-24] MEDS ORDERED: 0.9 % Sodium Chloride 1,000 ML ONE ×2 (11:22→12:29)
[2017-12-24] MEDS ORDERED: Nitroglycerin 1,000 MCG/10 ML VIAL IV ONE (11:22)
[2017-12-24] MEDS ORDERED: *HR* FentaNYL (PF) 100 MCG/2 ML VIAL ONE (12:29)
[2017-12-24] MEDS ORDERED: *HR* Midazolam HCl 2 MG/2 ML VIAL ONE (12:29)
--- NOTE | 2017-12-24 13:30 | Invasive Diagnostic Lab Proc ---
Name: Pepe Vargas Date of Study: 12/24/2017 Date: 1970 Ht: 68.1in Medical Record#: [id number] Age: 47 Wt: 260.59lb Gender: Male BSA: 2.29 Order #: [id number] BMI: 39.49 Physicians Procedure Physician: Leroy Reddy MD, [facility] Referring MD: Referring MD: Staff Name Position Time In Ness Slater RT (R) Monitor 12:32 PM Laquita Owens RN Agriculture Consultant 12:32 PM Carlito Floyd RT (R) Scrub 12:32 PM Laquita Owens RN Monitor 12:39 PM Phan Arnold RN Agriculture Consultant 12:39 PM Indications Indication Non-Stemi Cardiomyopathy Procedures Performed Procedure L HRT ARTERY/VENTRICLE ANGIO PRQ CARDIAC ANGIOPLAST 1 ART Pre-Procedure Checklist Informed consent is complete signed and on chart. H&P is on chart. ID band is on and ID verified with patient. Patient NPO for procedure The procedure was described for the patient and questions were answered. ECG is on chart. Plan of Care Patient will tolerate the procedure without complications. Adequate level of comfort will be maintained. Hemodynamics will remain stable Patient will recover from procedure without complications. Respiratory function will be maintained. Cardiac rhythm will remain stable. Patient temperature will be maintained. Patient and/or family have verbalized understanding of the procedure. Patient Education Chief Complaint/Reason for Test: Cardiac Cath Developmental Category: Adult (18-64 years) Developmentally Appropriate for Age: Yes Learning Barriers: None Education Needs: Procedure Education Method: Verbal Information Taught: Cardiac Cath Educational Evaluation: Able to repeat information Intravenous Access Time IV Size Location DC'd Fluid/Drip Rate Units RN 20g 1 1/4" Patent On Arrival Rt Arm 20g 1 1/4" Patent On Arrival Lt Arm Allergies No Known Allergies Vital Signs Time BP (mmHg) HR (bpm) O2 Sat. RR (bpm) LOC 12:33 PM / % 4 = Oriented but drowsy 12:33 PM / % 4 = Oriented but drowsy 12:45 PM 160 / 97 90 93 % 22 12:49 PM 159 / 98 94 93 % 21 12:54 PM 156 / 102 91 94 % 21 12:59 PM 161 / 104 89 94 % 21 01:04 PM 155 / 97 90 93 % 28 Procedural Medications Time Medication Dose Units Method Given By 12:33 PM Oxygen 2 L/min nasal cannula Lauqita Owens RN 12:33 PM Versed 2 mg Intravenous Laquita Owens RN 12:33 PM Fentanyl 50 mcg Intravenous Laquita Owens RN 12:43 PM Lidocaine 2% 0.5 ml Subcutaneous Leroy Reddy MD, [facility] 12:44 PM Heparin 4000 units Nitroglycerin 200 mcg Verapamil 2.5 mg Intraarterial Leroy Reddy MD, FAC 01:01 PM Nitroglycerin 200 mcg Intracoronary Leroy Reddy MD 01:15 PM Plavix 300 mg Orally Phan Arnold RN ASA Classification: CLASS II- Mild systemic disease (i.e. well-controlled diabetes, hypertension, asthma, cigarette smoking) Marta Score Preprocedure Postprocedure Activity 2- Moves 4 extremities sustained head lift Activity 2- Moves 4 extremities sustained head lift Circulation 2- SBP +/= 20 points of pre-anesthetic level Circulation 2- SBP +/= 20 points of pre-anesthetic level Consciousness 2- Awake and alert oriented x 3 Consciousness 2- Awake and alert oriented x 3 O2 Saturation 2- Able to maintain O2 satruation of 92% on room air O2 Saturation 2- Able to maintain O2 satruation of 92% on room air Respiratory 2- Able to deep breathe and cough well Respiratory 2- Able to deep breathe and cough well Total Score 10 Total Score 10 Contrast Agent: Isovue Diagnostic Contrast: 57 ml Total Contrast: 57 ml Fluoro Dose: 767 mGy Procedure Log Time Note Enter By 12:22 PM Pt arrived to laboratory chemical assistant 2 at 12:22 [email or web address] 12:31 PM Recorded ECG: HR=88 Condition=Condition 1 12:32 PM Ness Slater RT (R) Position: Monitor Time in: 12:32 [email or web address] 12:32 PM Laquita Owens RN Position: Agriculture Consultant Time in: 12:32 [email or web address] 12:32 PM Carlito Floyd RT (R) Position: Scrub Time in: 12:32 [email or web address] 12:32 PM Patient charges- Angio tray pack, Navilyst 3mm J, Pulse Oximetry and ACIST tubing and transducer [email or web address] 12:32 PM Case Delayed No [email or web address] 12:32 PM Hair removed from procedure site in holding area using clippers. Right wrist prepped with Chloraprep by Ness Slater RT (R), then patient was draped. Skin intact. [email or web address] 12:32 PM Hair removed from procedure site in holding area using clippers. Right groin prepped with Chloraprep by Ness Slater RT (R), then patient was draped. Skin intact. [email or web address] 12:32 PM Physician arrived 12:32 [email or web address] 12:33 PM ASA Class CLASS II- Mild systemic disease (i.e. well-controlled diabetes, hypertension, asthma, cigarette smoking) [email or web address] 12:33 PM Meet and kenny completed [email or web address] 12:33 PM Sign in performed according to hospital policy. [email or web address] 12:33 PM Procedure start 12:33 [email or web address] 12:33 PM Time: 12:33 Oxygen on at 2 L/min per nasal cannula by Laquita Owens RN [email or web address] 12:33 PM Time: 12:33 Versed 2 mg Intravenous Given by Laquita Owens RN [email or web address] 12:33 PM Time: 12:33 Fentanyl 50 mcg Intravenous Given by Laquita Owens RN [email or web address] 12:33 PM Time: 12:33 Patient comfortable and pain free: Yes [email or web address] 12:33 PM Time: 12:33LOC: 4 = Oriented but drowsy [email or web address] 12:33 PM CathStat 12:39 PM Laquita Owens RN Position: Monitor Time in: 12:39 to relieve Ness Slater RT (R) [email or web address] 12:39 PM Phan Arnold RN Position: Agriculture Consultant Time in: 12:39 to relieve Laquita Owens RN [email or web address] 12:40 PM Vitals capture started with the following parameters, Patient=Adult, Interval=5 min, Initial Ypffsiis=772 mmHg, Deflation Rate=3 mmHg, Cuff placed on Right Arm 12:41 PM Vitals capture stopped. 12:43 PM Clinical Presentation: Non-STEMI [email or web address] 12:43 PM Time out performed according to hospital policy [email or web address] 12:43 PM Time: 12:43 0.5 ml Lidocaine 2% to right radial Subcutaneous Given by Leroy Reddy MD, [facility] [email or web address] 12:43 PM Vitals capture started with the following parameters, Patient=Adult, Interval=5 min, Initial Ojscbjnj=489 mmHg, Deflation Rate=3 mmHg, Cuff placed on Right Arm 12:43 PM Access obtained by percutaneous puncture. 6Fr 10cm Terumo Glidesheath sheath placed in right Radial artery. [id number] [email or web address] 12:44 PM Time: 12:44 Patient given 4,000 units Heparin, 200 mcg Nitroglycerin, and 2.5 mg Verapamil Intraarterial by Leroy Reddy MD, [facility]. This is given to reduce risk of vessel spasm and thrombosis. [email or web address] 12:44 PM 0.035 260cm Navilyst 3mmJ wire [id number] [email or web address] 12:44 PM 5Fr TIG catheter inserted over the wire DNC [email or web address] 12:45 PM HR=90 bpm, HWZF=532/97 mmhg, SpO2=93.0 %, Resp=22 B/min 12:46 PM wire removed [email or web address] 12:46 PM Recorded Pressure: Ao, HR=90, Condition=Condition 1 (Aorta) Ao 138/96/116 12:46 PM LCA angiography performed in multiple views. [email or web address] 12:48 PM Recorded Pressure: Ao, HR=84, Condition=Condition 1 (Aorta) Ao 149/105/126 12:48 PM RCA angiography performed in multiple views. [email or web address] 12:48 PM Catheter removed [email or web address] 12:49 PM Time: 12:33LOC: 4 = Oriented but drowsy [email or web address] 12:49 PM Time: 12:33 Patient comfortable and pain free: Yes [email or web address] 12:49 PM 5Fr Pigtail catheter inserted over the wire DN [email or web address] 12:49 PM HR=94 bpm, CNKC=649/98 mmhg, SpO2=93.0 %, Resp=21 B/min 12:49 PM Pressure channel 1 zeroed. 12:49 PM Recorded Pressure: LV, HR=91, Condition=Condition 1 (Left Ventricle) LV 177/29/43 12:50 PM Recorded Pressure: LV, Ao, HR=90, Condition=Condition 1 (Left Ventricle) LV 176/28/42, (Aorta) Ao 179/85/134 12:50 PM Catheter selectively placed in left ventricle [email or web address] 12:50 PM pressures obtained, no injection administered. [email or web address] 12:51 PM Inflation device was opened. [email or web address] 12:52 PM Catheter removed [email or web address] 12:52 PM 5Fr RBR 3.5 Convey guide catheter was used to cannulate the PCI vessel successfully. reused? No [email or web address] 12:53 PM .014 Coamo 190cm guide wire across target lesion- successful. reused? No [email or web address] 12:54 PM HR=91 bpm, ZODU=954/102 mmhg, SpO2=94.0 %, Resp=21 B/min 12:54 PM 2.5 mm x 12mm NC Emerge balloon across target lesion- successful. reused? No [email or web address] 12:54 PM Lesion found in Mid RCA. Pre Stenosis: 99 Pre SINA Flow: 3: Complete and Brisk Flow/Perfusion [email or web address] 12:55 PM Lesion found in Mid LAD. Pre Stenosis: 70 Pre SINA Flow: [email or web address] 12:55 PM Lesion found in Mid Circumflex. Pre Stenosis: 100 Pre SINA Flow: [email or web address] 12:55 PM Mid/Distal Left Anterior Descending Coronary Artery and diagonal branches with 70% stenosis. If graft is supplying this area, 0 % stenosis [email or web address] 12:55 PM Circumflex, Obtuse Marginal, Left Posterior Descending, and Left Posterolateral Coronary Arteries with 100 % stenosis. If graft is supplying this area, 0 % stenosis [email or web address] 12:55 PM Right Coronary, Right Posterior Descending Arteries with Right Posterolateral and Acute Marginal branches with 99 % stenosis. If graft is supplying this area, 0 % stenosis [email or web address] 12:55 PM Balloon inflated @ 12 yadiel for 10 seconds [email or web address] 12:56 PM Balloon inflated @ 12 yadiel for 6 seconds [email or web address] 12:56 PM Balloon inflated @ 12 yadiel for 11 seconds [email or web address] 12:57 PM Balloon inflated @ 12 yadiel for 15 seconds [email or web address] 12:57 PM Balloon inflated @ 16 yadiel for 15 seconds [email or web address] 12:58 PM Balloon inflated @ 16 yadiel for 15 seconds [email or web address] 12:58 PM Balloon inflated @ 12 yadiel for 8 seconds [email or web address] 12:59 PM HR=89 bpm, EPUG=507/104 mmhg, SpO2=94.0 %, Resp=21 B/min 01:00 PM Balloon catheter removed intact. [email or web address] 01:00 PM 2.25 mm x 20mm NC Emerge balloon across target lesion- successful. reused? No [email or web address] 01:01 PM Balloon inflated @ 20 yadiel for 19 seconds [email or web address] 01:01 PM Time: 13:01 Nitroglycerin 200 mcg Intracoronary Given by Leroy Reddy MD 3 01:02 PM Coronary Dominance: right [email or web address] 01:02 PM Lesion found in Proximal RCA. Pre Stenosis: 60 Pre SINA Flow: [email or web address] 01:03 PM Balloon catheter removed intact. [email or web address] 01:03 PM Recorded Pressure: Ao, HR=91, Condition=Condition 1 (Aorta) Ao 139/87/110 01:03 PM Guide wire removed intact. [email or web address] 01:04 PM Guide catheter removed intact. [email or web address] 01:04 PM HR=90 bpm, IUOA=185/97 mmhg, SpO2=93.0 %, Resp=28 B/min 01:04 PM Procedure completed at 13:04 [email or web address] 01:05 PM Sign out completed: Radiation Dose 766.52 mGy Fluoro Time: 5.6 Isovue 370 - 200ml contrast 57 ml given by Leroy Reddy MD, [facility]. Complications: NoneCardiac Rehab Consult needed: YesConfirmed administered medications: Yes [email or web address] 01:05 PM Isovue 370 - 200ml,1 Bottle(s) used. [email or web address] 01:05 PM Arterial sheath pulled, Vasc Band closure device used and was Successful S/N. [email or web address] 01:05 PM 12 ml air in Vasc Band. [email or web address] 01:06 PM Estimated Blood Loss: less than 20cc [email or web address] 01:06 PM Post Blood Pressure 155/97 [email or web address] 01:06 PM 13:06 Post Pulses Rt Radial 1+ [email or web address] 01:06 PM Information taught Cardiac Cath, PCI, and Vasc Band [email or web address] 01:06 PM Education needs Procedure, Plan of Care, and Responsibilities of Patient in Care [email or web address] 01:06 PM Learning barriers :None [email or web address] 01:07 PM Education Methods Verbal [email or web address] 01:07 PM Education evaluation Able to repeat information [email or web address] 01:07 PM Site status No bleeding/hematoma - Rt Wrist as reported by Carlito Floyd RT (R) at 13:07 [email or web address] 01:07 PM Delay to floor No [email or web address] 01:07 PM Family placed in consult room. [email or web address] 01:07 PM Complications: None [email or web address] 01:07 PM Fluoro Time: 5.6 [email or web address] 01:07 PM Isovue 370 - 200ml contrast [address] Reddy. [email or web address] 01:07 PM Radiation Dose 766.52 mGy [email or web address] 01:15 PM Time: 13:15 Plavix 300 mg Orally Given by Phan Arnold RN [email or web address] 01:15 PM Report given to Fitz MCNEAL Pt taken to E Room #24. 13:15 [email or web address] 01:15 PM Patient out of room: 13:15 [email or web address] 01:[address] Reddy pt needs less sedation due to excessive movement following sedation. [email or web address] Complications Complication None Hemodynamics Pressures Site Systolic/A Wave Diastolic/V Wave Mean AO 138 96 116 AO 149 105 126 LV 177 29 43 LV 176 28 42 AO 179 85 134 AO 139 87 110 Post Procedure Information Blood Pressure: 155/97 mmHg Post procedural instructions were given Closure Device Time Device Success/Fail 12/24/2017 1:05:00 PM Mechanical Compression Successful Site Checks Time Location Status Staff Sheath In? Note 01:07 PM Rt Wrist No bleeding/hematoma Carlito Floyd RT (R) Pulses Time Site Pre-Procedure Post-Procedure Note Bilateral DP & PT 1+ 1:06:00 PM Rt Radial 1+ Updated by Ness Slater RT(R) on 12/24/2017 1:23:17 PM electronically signed on 12/24/2017 1:23:50 PM with status of Final
[2017-12-24] MEDS: *HR* Metoprolol 5 MG/5 ML VIAL IVP PRN (15:04)
--- NOTE | 2017-12-24 16:53 | Urology Progress Note ---
Date of Encounter: 12/24/17 Time of Encounter: 16:51 - Assessment and Plan (1) Urinary retention Current Visit: Yes Status: Acute (2) RANDY (acute kidney injury) Current Visit: Yes Status: Resolved Progress Note Narrative: S: Patient seen this morning. Patient feeling much better and stating that he is voiding well. No pain. Bladder scan was performed today which revealed less than 100 mL's. Serum creatinine has improved to normal. O: AFVSS Gen alert and oriented CV: RRR Resp: good air movement, no wheezing Abd: obese, but soft, no masses A/p: 1. Elevated serum creatinine -resolved at this time. 2. Urinary retention- resolved at this time. Urology will sign off no specific follow-up needed with urology. Call with any questions Objective Initial Vital Signs Temp Pulse Resp BP Pulse Ox 100.0 F H 110 18 92/58 97 12/17/17 19:51 12/17/17 19:51 12/17/17 19:51 12/17/17 19:51 12/17/17 19:51 - Labs 12/24/17 04:19 12/24/17 04:19 Diabetes panel 12/24/17 Range/Units 04:19 Sodium 140 (136-145) mEq/L Potassium 3.6 (3.5-5.1) mEq/L Chloride 108 H (98-107) mEq/L Carbon Dioxide 25 (23-29) mEq/L BUN 17 (6-20) mg/dL Creatinine 1.13 (0.70-1.30) mg/dL Glucose 91 (70-105) mg/dL Calcium 8.5 L (8.6-10.3) mg/dL AST 23 (13-39) Units/L ALT 21 (7-52) Units/L Alkaline Phosphatase 74 (34-104) Units/L Albumin 2.8 L (3.5-5.7) g/dL Calcium panel 12/24/17 Range/Units 04:19 Calcium 8.5 L (8.6-10.3) mg/dL Albumin 2.8 L (3.5-5.7) g/dL Pituitary panel 12/24/17 Range/Units 04:19 Sodium 140 (136-145) mEq/L Potassium 3.6 (3.5-5.1) mEq/L Chloride 108 H (98-107) mEq/L Carbon Dioxide 25 (23-29) mEq/L BUN 17 (6-20) mg/dL Creatinine 1.13 (0.70-1.30) mg/dL Glucose 91 (70-105) mg/dL Calcium 8.5 L (8.6-10.3) mg/dL Adrenal panel 12/24/17 Range/Units 04:19 Sodium 140 (136-145) mEq/L Potassium 3.6 (3.5-5.1) mEq/L Chloride 108 H (98-107) mEq/L Carbon Dioxide 25 (23-29) mEq/L BUN 17 (6-20) mg/dL Creatinine 1.13 (0.70-1.30) mg/dL Glucose 91 (70-105) mg/dL Calcium 8.5 L (8.6-10.3) mg/dL Total Bilirubin 0.3 (0.3-1.0) mg/dL AST 23 (13-39) Units/L ALT 21 (7-52) Units/L Alkaline Phosphatase 74 (34-104) Units/L Albumin 2.8 L (3.5-5.7) g/dL Consult Discharge Plan - Plan Referrals: Babak Lamas DO [Primary Care Provider] - Avel Holcomb MD [Partnered Physician] - 01/08/18 1:30 pm
--- NOTE | 2017-12-24 16:53 | Podiatry Progress Note ---
Date of Encounter: 12/24/17 Time of Encounter: 16:00 - Assessment and Plan (1) Cellulitis and abscess of left leg Current Visit: Yes Status: Acute (2) Puncture wound Current Visit: Yes Status: Acute Assessment: Puncture wound of the plantar aspect of the left foot with tracking between toes #1 and #2 and to dorsal aspect of foot s/p Incision and drainage left foot, first interspace with debridement and biopsy12/20/17 per Sessions Removed dressing at bedside today Drainage has decreased, will apply wound vac today Flushed wound with sterile saline Small black simplace sponge placed within wound- draped skin with tegaderm and tracked sponge to top of foot, disk and suction applied at 125mmhg, good seal noted without leak Will need to be changed every Friday Flushed wound with sterile saline, pat dry At this time encouraged to elevate when sitting and do not dangle, dependent edema noted to foot from sitting Continue antibiotics per ID, cefazolin Q8, ID states likely 6 weeks of treatment needed, MSSA growth within wound, BC NTD PT/OT consult if not already done. SW consult for discharge planning- will need wound vac on discharge Minimal weight bearing to heel only. Patient underwent cardiac cath earlier today WBC 10.2 and afebrile. at bedside. Patient will need to follow up with post discharge in podiatry clinic and then likely will be followed in wound care center Subjective Principal diagnosis: Left foot infection Interval history: Patient is s.p incision and drainage left foot, first interspace with debridement and biopsy per Sessions on 12/20/17. Patient resting comfortably on arrival. underwent cardiac cath today. Dressing intact, no drainage noted. Patient is neuropathic and denies any pain. States that overall he does feel better. Denies any chills, n/v or flu like symptoms. Denies calf pain or SOB. Family at bedside at this time. Objective - Vital Signs Vital Signs: Vital Signs Temp Pulse Resp BP Pulse Ox 12/24/17 15:55 88 172/98 12/24/17 15:46 97.8 F 89 20 172/98 93 12/24/17 15:41 90 182/91 12/24/17 15:12 78 168/96 12/24/17 14:58 86 186/104 05/16/18 14:06 86 175/98 12/24/17 11:45 98 F 88 20 169/93 90 12/24/17 08:02 97.6 F 102 20 174/99 93 12/24/17 05:53 168/97 12/24/17 05:46 98.2 F 93 20 177/103 95 12/24/17 01:00 98.8 F 96 15 165/96 95 12/23/17 20:00 97 12/23/17 19:36 98.3 F 107 17 173/87 96 Intake and Output 12/24/17 12/24/17 12/24/17 07:59 15:59 23:59 Intake Total 100 / 100 340 / 340 Output Total 600 / 600 1500 / 1500 Balance -500 / -500 -1160 / -1160 Intake: IV Fluids 100 / 100 100 / 100 Ancef 1,000 MG In 0.9 % Sodium 100 / 100 100 / 100 Chloride (Mini-Bag +) 100 ML @ 200 mls/hr IVPB Q8HR [facility] Rx#: [id number] Oral 0 / 0 240 / 240 Output: Urine 600 / 600 1500 / 1500 Other: Meal Lunch Percent of Meal Consumed 20% Weight 115.3 kg Blood Glucose* 101 168 Patient Weight 12/24/17 23:59 Weight 115.3 kg - Exam Exam: Podiatry General Exam: General appearance: alert awake oriented X 3. Calm and pleasant, no acute distress.. Vascular: Pedal pulses +2/4 DP/PT , No evidence of cyanosis, pallor or rubor, Edema graded at 1+/4, Skin Temperature warm, No calf pain with manual compression. capillary refill time is immediate to digits. Neurologic: Loss of sensation to light or moderate touch Postop Exam: S/P I&D of foot abscess Open incision line [id number]. 50% healthy granulation tissue noted to base, 50% yellow fibrous tissue. Scant serous drainage. No odor. No sinus tracts or tunneling. There remains to be moderate periwound edema and erythema as well as warmth, slightly decreased from 12/23 assessment. No fluctuance noted. At proximal border of wound there is slight skin darkening noted consistent with possible compromise of tissue, will continue to monitor for worsening. Area measures 0.3cmx0.2cm and another [id number] area at proximal base. No ulceration. . - Lab Result Diagrams: 12/24/17 04:19 12/24/17 04:19 Labs: Abnormal lab results RBC 3.16 M/mcL (4.19-5.50) L 12/24/17 04:19 Hgb 9.9 g/dL (12.9-16.9) L 12/24/17 04:19 Hct 28.6 % (37.5-50.1) L 12/24/17 04:19 Immature Gran % 4.3 % (0-4) H 12/22/17 01:24 Metamyelocytes % 2.0 % (0) H 12/23/17 04:49 Myelocytes % 4.0 % (0) H 12/24/17 04:19 Toxic Granulation Present (Not Present) A 12/24/17 04:19 Large Platelets Present (Not Present) A 12/24/17 04:19 APTT 65.9 Seconds (26.0-36.0) H 12/22/17 15:59 ABG pH 7.46 pH Units (7.32-7.45) H 12/20/17 18:20 ABG pCO2 33 mmHg (35-45) L 12/20/17 18:20 ABG pO2 70 mmHg (85-104) L 12/20/17 18:20 Chloride 108 mEq/L (98-107) H 12/24/17 04:19 POC Glucose 101 mg/dL (70-99) H 12/24/17 11:52 Hemoglobin A1c 9.5 % (-5.6) H 12/17/17 20:13 Calcium 8.5 mg/dL (8.6-10.3) L 12/24/17 04:19 Troponin I 0.44 ng/mL (< 0.04) H* 12/21/17 12:43 Albumin 2.8 g/dL (3.5-5.7) L 12/24/17 04:19 Globulin 3.7 g/dL (2.4-3.5) H 12/24/17 04:19 Albumin/Globulin Ratio 0.8 (1.1-2.2) L 12/24/17 04:19 Microbiology, Last 48 Hours 12/18/17 17:19 Anaerobic Culture - Final Left Foot No anaerobes were recovered. 12/20/17 12:00 Anaerobic Culture - Preliminary Left Foot At this time, no anaerobic growth is present. The culture will be finalized after 5 days of incubation. Consult Discharge Plan - Plan Referrals: Babak Lamas DO [Primary Care Provider] - Avel Holcomb MD [Partnered Physician] - 01/08/18 1:30 pm
[2017-12-24] MEDS: CeFAZolin Pre 2,000 MG/100 ML 2,000 MG/100 ML BAG IVPB SCH (16:58)
[2017-12-24] MEDS: Insulin DETEMIR 100 UNIT/ML X5UNITS SQ SCH (22:03)
[2017-12-25] MEDS: CeFAZolin Pre 2,000 MG/100 ML 2,000 MG/100 ML BAG IVPB SCH ×3 (01:18→15:37)
[2017-12-25] MEDS: *HR* Heparin 5,000 UNIT/ML VIAL SQ SCH ×2 (04:40→17:21)
[2017-12-25 05:05] LABS: Basophils % 0.4 %; Eosinophils # 0.4 K/mcL (0.0-0.6); Eosinophils % 3.9 %; Hematocrit 27.9 % (37.5-50.1); Hemoglobin 9.5 g/dL (12.9-16.9); Immature Granulocytes % 4.7 % (0-4); Lymphocytes # 1.1 K/mcL (0.6-4.6); Lymphocytes % 11.2 %; Mean Corpuscular HGB Conc 34.1 g/dL (31.6-35.5); Mean Corpuscular Hemoglobin 30.7 pg (28.0-33.3); Mean Corpuscular Volume 90.3 fL (83.0-100.0); Mean Platelet Volume 11.1 fL (9.4-12.4); Monocytes # 0.6 K/mcL (0.0-1.3); Monocytes % 6.2 %; Neutrophils # 7.5 K/mcL (1.6-8.9); Platelet Count 255 K/mcL (140-400); Red Blood Count 3.09 M/mcL (4.19-5.50); Segmented Neutrophils % 73.6 %
[2017-12-25 05:26] LABS: BUN/Creatinine Ratio 14 (6-26); Blood Urea Nitrogen 15 mg/dL (6-20); Calcium 8.3 mg/dL (8.6-10.3); Carbon Dioxide 28 mEq/L (23-29); Chloride 106 mEq/L (98-107); Glucose 134 mg/dL (70-105); Osmolality,Calculated 291 (280-300); Potassium 3.6 mEq/L (3.5-5.1); Sodium 139 mEq/L (136-145); eGFR For African Americans > 60 (> 60); eGFR For Non-African Americans > 60 (> 60)
[2017-12-25] MEDS ORDERED: *HR* Metoprolol 5 MG/5 ML VIAL IVP ONE (05:27)
[2017-12-25] MEDS: Insulin LISPRO 300 UNITS/3 ML VIAL SQ SCH ×4 (08:00→22:31)
--- NOTE | 2017-12-25 10:09 | Infectious Disease Progress No ---
Date of Encounter: 12/25/17 Time of Encounter: 10:07 - Assessment and Plan (1) Severe sepsis Current Visit: Yes Status: Acute Patient presented with 3 out of 4 SIRS criteria with fever, tachycardia, leukocytosis. Resolved at this time. Cause is infected traumatic puncture wound of left foot. Lactic acidosis present on admission, has since normalized. Received IV fluid hydration, antibiotics. Further treatment of infection as discussed below. Blood cultures drawn 12/17/17 are negative x 2 sets and 12/20/17 are NGTD x 2 sets. (2) Osteomyelitis Current Visit: Yes Status: Acute Causative organism: MSSA. Source: Traumatic puncture wound. Status post incision and drainage 12/20/[address] Kimble. Operative note reviewed. Evidence of purulent material contacting bone concerning for early osteomyelitis. No weak or damage bone was noted. Intra-op cultures positive for MSSA. No specimen sent to pathology. Check ESR and CRP. Continue cefazolin, but increase to 2 grams IV Q8H with normalization of CrCl ( 70). Duration of treatment depends on the clinical picture, but likely 6 weeks. Monitor renal function and dose-adjust antibiotics. human services manager to assist with discharge planning. Awaiting Medicaid approval. Will need weekly CBC, BUN/Cr, ESR, CRP. Will need weekly IV care per protocol. Follow up with ID 01/08/18 at 1330. Qualifiers: Osteomyelitis type: other acute Osteomyelitis location: foot Laterality: left Qualified Code(s): M86.172 - Other acute osteomyelitis, left ankle and foot (3) Cellulitis and abscess of left leg Current Visit: Yes Status: Acute Secondary to traumatic puncture wound. Plan as above. Patient reports Tdap UTD. (4) Puncture wound Current Visit: Yes Status: Acute Due to stepping on a nail. Exacerbated by diabetic neuropathy. (5) Heart failure Current Visit: Yes Status: Acute TTE showed low EF. Cardiology consulted and following. Concern for ICM. Status post [facility] 12/24/17. Qualifiers: Heart failure type: combined systolic and diastolic Heart failure chronicity: acute on chronic Qualified Code(s): I50.43 - Acute on chronic combined systolic (congestive) and diastolic (congestive) heart failure (6) NSTEMI (non-ST elevated myocardial infarction) Current Visit: Yes Status: Acute Per cardiology, likely demand ischemia given lack of ACS symptoms. Further management per primary/cardiology. (7) Diabetes mellitus, type II, insulin dependent Current Visit: Yes Status: Chronic Uncontrolled. HgbA1C 9.5%. Recommend aggressive glucose monitoring and control to promote wound healing and prevent re-infection. - Subjective Interval history: Patient seen and examinedNo acute events noted overnight. Status post [facility] . Denies fevers, chills, or rigors. Denies chest pain, shortness of breath, or cough. Denies nausea, vomiting, or diarrhea. Reports last BM was yesterday. Denies abdominal pain, urinary complaints, or appetite changes. Denies pain at the surgical site. Denies oral thrush or skin lesions. Infect Dis PN-Objective Data - Labs CBC & Chem 7: 12/25/17 04:45 12/25/17 04:45 Labs: Laboratory Results - last 24 hr 12/21/17 12/23/17 12/23/17 00:36 16:42 19:37 WBC RBC Hgb Hct MCV MCH MCHC RDW Plt Count MPV Immature Gran % Seg Neutrophils % Lymphocytes % Monocytes % Eosinophils % Basophils % Neutrophils # Lymphocytes # Monocytes # Eosinophils # Basophils # Sodium Potassium Chloride Carbon Dioxide BUN Creatinine Est GFR ( Amer) Est GFR (Non-Af Amer) BUN/Creatinine Ratio Glucose POC Glucose 209 H 218 H Calculated Osmolality Calcium TSH Receptor Antibody <0.90 12/24/17 12/24/17 12/24/17 08:07 09:52 11:52 WBC RBC Hgb Hct MCV MCH MCHC RDW Plt Count MPV Immature Gran % Seg Neutrophils % Lymphocytes % Monocytes % Eosinophils % Basophils % Neutrophils # Lymphocytes # Monocytes # Eosinophils # Basophils # Sodium Potassium Chloride Carbon Dioxide BUN Creatinine Est GFR ( Amer) Est GFR (Non-Af Amer) BUN/Creatinine Ratio Glucose POC Glucose 77 64 L 101 H Calculated Osmolality Calcium TSH Receptor Antibody 12/24/17 12/24/17 12/25/17 16:08 19:37 04:45 WBC 10.1 RBC 3.09 L Hgb 9.5 L Hct 27.9 L MCV 90.3 MCH 30.7 MCHC 34.1 RDW 13.0 Plt Count 255 MPV 11.1 Immature Gran % 4.7 H Seg Neutrophils % 73.6 Lymphocytes % 11.2 Monocytes % 6.2 Eosinophils % 3.9 Basophils % 0.4 Neutrophils # 7.5 Lymphocytes # 1.1 Monocytes # 0.6 Eosinophils # 0.4 Basophils # 0.0 Sodium Potassium Chloride Carbon Dioxide BUN Creatinine Est GFR ( Amer) Est GFR (Non-Af Amer) BUN/Creatinine Ratio Glucose POC Glucose 168 H 279 H Calculated Osmolality Calcium TSH Receptor Antibody 12/25/17 04:45 WBC RBC Hgb Hct MCV MCH MCHC RDW Plt Count MPV Immature Gran % Seg Neutrophils % Lymphocytes % Monocytes % Eosinophils % Basophils % Neutrophils # Lymphocytes # Monocytes # Eosinophils # Basophils # Sodium 139 Potassium 3.6 Chloride 106 Carbon Dioxide 28 BUN 15 Creatinine 1.09 Est GFR ( Amer) > 60 Est GFR (Non-Af Amer) > 60 BUN/Creatinine Ratio 14 Glucose 134 H POC Glucose Calculated Osmolality 291 Calcium 8.3 L TSH Receptor Antibody Cultures: Cultures 12/18/17 17:19 Anaerobic Culture - Final Left Foot No anaerobes were recovered. 12/20/17 12:00 Anaerobic Culture - Preliminary Left Foot At this time, no anaerobic growth is present. The culture will be finalized after 5 days of incubation. 12/20/17 12:00 Wound Culture - Final Left Foot Staphylococcus aureus 12/20/17 18:28 Blood Culture - Preliminary Peripheral Venipuncture No growth. 12/20/17 18:28 Blood Culture - Preliminary Peripheral Venipuncture No growth. 12/18/17 17:19 Wound Culture - Final Left Foot Staphylococcus aureus Serology 12/22/17 12/18/17 12/18/17 Range/Units 13:43 16:29 16:24 Ur Eosinophil Smear 0 (None Seen) % Urine Creatinine 99 mg/dL Urine Urea Nitrogen 380 mg/dL Exam - Constitutional Vitals: Temp Pulse Resp BP Pulse Ox 98 F 84 18 170/91 94 12/25/17 07:33 12/25/17 07:33 12/25/17 07:33 12/25/17 07:33 12/25/17 07:33 General appearance: cooperative, no acute distress, obese - Head Head exam: Present: atraumatic, normal inspection, normocephalic - Eye Eye exam: Present: EOMI, normal appearance, PERRL Pupils: Present: normal accommodation - ENT ENT exam: Present: mucous membranes moist - Neck Neck exam: Present: normal inspection - Respiratory Respiratory exam: Present: CTAB. Absent: rales, respiratory distress, rhonchi, wheezes - Cardiovascular Cardiovascular exam: Present: RRR, +S1, +S2 - GI/Abdominal GI/Abdominal exam: Present: distended (obese), normal bowel sounds, soft. Absent: tenderness - Extremities Exam Extremities exam: Present: pedal edema (1+ LLE). Absent: joint swelling, tenderness Additional comments: Left foot wound VAC dressing C/D/I with scant serosanguinous drainage noted in the canister. Overlying guaze dressing C/D/I. - Neurological Exam Neurological exam: Present: alert, oriented X3, no focal deficits - Psychiatric Psychiatric exam: Present: normal affect, normal mood - Skin Skin exam: Present: dry, intact, normal color, warm Consult Discharge Plan - Plan Referrals: Babak Lamas DO [Primary Care Provider] - Avel Holcomb MD [Partnered Physician] - 01/08/18 1:30 pm Prescriptions: ceFAZolin [Ancef] 2,000 mg IV Q8H #111 vial - Attending Attestation I examined this patient and my medical decision-making was reviewed with the Resident Physician. I agree with the documented findings, disposition and treatment plan as described except to the extent set forth below.
[2017-12-25] MEDS: Metoprolol XL (24 HR) Succ 50 MG TAB.ER.24H PO SCH (11:01)
[2017-12-25] MEDS: amLODIPine 5 MG TABLET PO SCH ×2 (11:02→22:32)
[2017-12-25] MEDS: Aspirin Enteric Coated 81 MG Tablet PO SCH (11:02)
--- NOTE | 2017-12-25 11:11 | Internal Med Progress Note ---
<Felix Melendrez - Last Filed: 12/25/17 16:05> Date of Encounter: 12/25/17 Time of Encounter: 09:20 - Assessment and plan (1) Severe sepsis Current Visit: Yes Status: Acute Assessment and plan: 3 SIRS criteria on admission: Fever, tachycardia, leukocytosis, Randy suspected source of infection: left lower extremity cellulitis left foot CT showed severe cellulitis of the left foot, left ankle without discrete agonized fluid collection, no acute fracture or gross dislocation, no aggressive osseous destruction, no obvious foreign body identified. In the emergency department, patient received 2 fluid boluses with appropriate increase in blood pressure. He also received one dose vancomycin, one dose Zosyn, one dose ciprofloxacin. Leukocytosis resolved Tachycardia improved today Blood cultures NGTD, repeat blood cultures (after being febrile) no growth to date Wound cultures: MSSA on two occasions - Vanc discontinued MSSA - Patient was treated towards MSSA alone. He was febrile two nights ago and so Levaquin was added at that time. ID is now on board, recommend Continued cefazolin PICC is in place, likely tansfer to SNF/ECF (2) HTN (hypertension) Current Visit: Yes Status: Chronic Assessment and plan: Continue home beta shira, hold lisinopril due to renal function - Increased metoprolol to 100 mg BID - Losartan was added by Nephrology, increased due to continued BP elevation - May require additional medication if it does not resolve Qualifiers: Hypertension type: essential hypertension Qualified Code(s): I10 - Essential (primary) hypertension (3) Ischemic cardiomyopathy Current Visit: Yes Status: Suspected Assessment and plan: HFrEF with minimal fluid overload Patient continues to have some orthopnea Echo shows LVEF 35-40%, mild LV diastolic dysfunction Cardiology on board, plan for C when cleared by nephrology Per cardiology, stop heparin drip, continue BB, ASA, Statin. Hold ACEi due to kidney function (4) Cellulitis Current Visit: Yes Status: Acute Assessment and plan: Plan as above Qualifiers: Site of cellulitis: extremity Site of cellulitis of extremity: lower extremity Laterality: left Qualified Code(s): L03.116 - Cellulitis of left lower limb (5) Diabetes mellitus, type II, insulin dependent Current Visit: Yes Status: Chronic Assessment and plan: History of uncontrolled type II diabetes continue basal and medium dose sliding scale insulin - weight based and adjust as needed ADA diet - currently NPO for LHC Goal inpatient setting is <180. (6) HLD (hyperlipidemia) Current Visit: No Status: Chronic Assessment and plan: Continue home Statin Qualifiers: Hyperlipidemia type: mixed hyperlipidemia Qualified Code(s): E78.2 - Mixed hyperlipidemia (7) RANDY (acute kidney injury) Current Visit: Yes Status: Resolved Assessment and plan: Likely secondary to sepsis and IV contrast Seems to be improving each day, current serum creatinine 1.09 Per nephrology, the patient is at baseline Check BMP in morning (8) DVT prophylaxis Current Visit: No Status: Acute Assessment and plan: SQ Heparin (9) NSTEMI (non-ST elevated myocardial infarction) Current Visit: Yes Status: Acute Assessment and plan: Elevated troponins on arrival Patient underwent LHC with PCI to the RCA without complication Remaining disease was not altered in any way Management per cardiology - Time Spent With Patient Total time spent is greater than 50% in coordination of care (as documented) at patient's floor/unit and/or counseling patient: - Subjective Interval history: The patient is seen and examined at bedside. He is sitting in chair without complaint today. He did have wound vac placed. - Constitutional Vitals: Temp Pulse Resp BP Pulse Ox 98 F 84 18 170/91 94 12/25/17 07:33 12/25/17 07:33 12/25/17 07:33 12/25/17 07:33 12/25/17 07:33 General appearance: Present: A&O X 3, no acute distress, answers questions appropriately Exam: Gen: Vitals noted. No acute distress. HEENT: Normocephalic, atraumatic Neck: Supple. No adenopathy. Cardiac: RRR, no murmur, +S1/S2 Pulmonary: CTA bilaterally, no wheezes, rales or rhonchi, equal chest expansion Abdomen: soft, nontender, BS noted, no guarding Back: Nontender throughout. MSK: ROM intact, no joint swelling noted Extremities: Trace bilateral lower extremity edema with worsened edema on the left leg which goes to the mid tibia. Wound vac and soft boot in place Neuro: A&Ox3, moves all extremities, no focal deficits Psych: Appropriate mood and behavior Internal Medicine: Result - Labs CBC & Chem 7: 12/25/17 04:45 12/25/17 04:45 Labs: Short CBC 12/25/17 Range/Units 04:45 WBC 10.1 (4.3-11.1) K/mcL Hgb 9.5 L (12.9-16.9) g/dL Hct 27.9 L (37.5-50.1) % Plt Count 255 (140-400) K/mcL Neutrophils # 7.5 (1.6-8.9) K/mcL BMP 12/25/17 04:45 Sodium 139 Potassium 3.6 Chloride 106 Carbon Dioxide 28 BUN 15 Creatinine 1.09 Glucose 134 H Calcium 8.3 L - ABG Interpretation ABG results: ABG ABG pH 7.46 pH Units (7.32-7.45) H 12/20/17 18:20 ABG pCO2 33 mmHg (35-45) L 12/20/17 18:20 ABG pO2 70 mmHg (85-104) L 12/20/17 18:20 ABG O2 Saturation 95 % (95-98) 12/20/17 18:20 PT/INR, D-dimer PT 11.8 Seconds (9.4-12.1) 12/20/17 19:44 Consult Discharge Plan - Plan Referrals: Babak Lamas DO [Primary Care Provider] - Avel Holcomb MD [Partnered Physician] - 01/08/18 1:30 pm Prescriptions: ceFAZolin [Ancef] 2,000 mg IV Q8H #111 vial <Warren Fuchs - Last Filed: 12/25/17 17:40> Date of Encounter: 12/25/17 - Assessment and plan (1) HTN (hypertension) Current Visit: Yes Status: Chronic Qualifiers: Hypertension type: essential hypertension Qualified Code(s): I10 - Essential (primary) hypertension (2) Diabetes mellitus, type II, insulin dependent Current Visit: Yes Status: Chronic (3) Diabetic polyneuropathy Current Visit: Yes Status: Chronic Qualifiers: Diabetes mellitus type: type 2 Qualified Code(s): E11.42 - Type 2 diabetes mellitus with diabetic polyneuropathy (4) Osteomyelitis Current Visit: Yes Status: Acute Qualifiers: Osteomyelitis type: other acute Osteomyelitis location: foot Laterality: left Qualified Code(s): M86.172 - Other acute osteomyelitis, left ankle and foot (5) Cellulitis Current Visit: Yes Status: Acute Qualifiers: Site of cellulitis: extremity Site of cellulitis of extremity: lower extremity Laterality: left Qualified Code(s): L03.116 - Cellulitis of left lower limb (6) NSTEMI (non-ST elevated myocardial infarction) Current Visit: Yes Status: Acute (7) Ischemic cardiomyopathy Current Visit: Yes Status: Suspected (8) HLD (hyperlipidemia) Current Visit: No Status: Chronic Qualifiers: Hyperlipidemia type: mixed hyperlipidemia Qualified Code(s): E78.2 - Mixed hyperlipidemia (9) RANDY (acute kidney injury) Current Visit: Yes Status: Resolved (10) Severe sepsis Current Visit: Yes Status: Acute (11) DVT prophylaxis Current Visit: No Status: Acute - Time Spent With Patient Total time spent is greater than 50% in coordination of care (as documented) at patient's floor/unit and/or counseling patient: - Constitutional Vitals: Temp Pulse Resp BP Pulse Ox 98.5 F 86 18 149/75 93 12/25/17 15:37 12/25/17 15:37 12/25/17 15:37 12/25/17 15:37 12/25/17 15:37 Internal Medicine: Result - Labs CBC & Chem 7: 12/25/17 04:45 12/25/17 04:45 Labs: Short CBC 12/25/17 Range/Units 04:45 WBC 10.1 (4.3-11.1) K/mcL Hgb 9.5 L (12.9-16.9) g/dL Hct 27.9 L (37.5-50.1) % Plt Count 255 (140-400) K/mcL Neutrophils # 7.5 (1.6-8.9) K/mcL BMP 12/25/17 04:45 Sodium 139 Potassium 3.6 Chloride 106 Carbon Dioxide 28 BUN 15 Creatinine 1.09 Glucose 134 H Calcium 8.3 L - ABG Interpretation ABG results: ABG ABG pH 7.46 pH Units (7.32-7.45) H 12/20/17 18:20 ABG pCO2 33 mmHg (35-45) L 12/20/17 18:20 ABG pO2 70 mmHg (85-104) L 12/20/17 18:20 ABG O2 Saturation 95 % (95-98) 12/20/17 18:20 PT/INR, D-dimer PT 11.8 Seconds (9.4-12.1) 12/20/17 19:44 - Attending Attestation I examined this patient and my medical decision-making was reviewed with the Resident Physician on 12/25/17. I agree with the documented findings, disposition and treatment plan as described except to the extent set forth below. Mr Vargas is currently admitted for cellulitis and OM. He remains moderate to high risk due to potential for worsening clinical status. Mr Vargas feels OK. He is tolerating wound vac. BP has been high today and we have been adjusting meds. Working on D/C planning as well. Exam alert Comfortable Mucus membranes dry Heart not tachy No wheeze I/P 1. NSTEMI 2. OM Further diagnoses and plan as above.
--- NOTE | 2017-12-25 11:55 | Cardiology Progress Note ---
Date of Encounter: 12/25/17 Time of Encounter: 11:00 Assessment and Plan (1) Elevated troponin Current Visit: No Status: Acute Troponins 0.25, 0.31, 0.33, 0.44 in setting of sepsis and RANDY. Suspect demand ischemia, nondiagnostic for ACS. Pt denies chest pain. Echo shows EF is reduced. Hx of ICMP, then improved to 55% 07/2016. Repeat TTE during stay EF is again reduced 35-40%. Renal function stable s/p LHC. [facility] 12/24/17: s/p PTCA of RCA, needs staged PCI of LCx if patient remains compliant with DAPT. Discussed importance of compliance of DAPT and all medications, patient is agreeable. (2) Ischemic cardiomyopathy Current Visit: No Status: Acute Hx of ICMP that improved after revascularization, EF was 55% 07/2016. TTE completed this admission shows EF is again reduced, 35-40%. Concern for ICMP given his CAD hx. Clinically appears euvolemic upon exam. Continue BB. Consider addition of ACEi if okay with Nephrology. (3) CAD (coronary artery disease) Current Visit: No Status: Chronic Known hx of CAD. [facility] 10/2015 successful PTCA/BMS to mRCA and mLCx. Continue ASA, Statin, BB. Qualifiers: Coronary Disease-Associated Artery/Lesion type: unspecified vessel or lesion type [place] vs. transplanted heart: [place] heart Associated angina: angina presence unspecified Qualified Code(s): I25.10 - Atherosclerotic heart disease of [place] coronary artery without angina pectoris Discussion w patient/family: The assessment and plan as outlined above was discussed with the patient and/or family members who expressed understanding and agreement. All questions were answered. Thank you for involving us in the care of your patient. Please call with any questions. The patient was discussed and reviewed with Dr. Flowers; Cardiology will sign-off , will arrange for follow-up with Dr. Reddy. Subjective Principal diagnosis: Left foot infection, elevated troponin Interval history: Patient seen and examined. Continues to be on IV atb for foot ulcer, patient states will require 6-8 weeks of IV atb. No chest pain or discomfort. No issues with cath site. Objective Vital Signs, Last 4 Hours Temp Pulse Resp BP Pulse Ox 12/25/17 11:33 97 F L 94 18 176/96 95 General: Conversant, No Apparent Distress HEENT: Atraumatic, Normocephaly Cardiac: Reg Rate and Rhythm, Normal S1 and S2 Lungs: Normal Breath Sounds Neuro: Alert and responsive Abdomen: Soft Extremities: Other (left lower foot boot, wound vac) Results 12/25/17 04:45 12/25/17 04:45 Lab Results 12/25/17 12/25/17 04:45 04:45 WBC 10.1 Hgb 9.5 L Hct 27.9 L Plt Count 255 Sodium 139 Potassium 3.6 Chloride 106 Carbon Dioxide 28 BUN 15 Creatinine 1.09 Glucose 134 H Calcium 8.3 L Active Medications Acetaminophen (Tylenol) 650 mg PO Q6HR PRN PRN Reason: Mild Pain/Fever Stop: 06/18/18 23:14 Last Admin: 12/20/17 00:25 Dose: 650 mg Hydrocodone Bitart/Acetaminophen ([place] 5-325 Mg) 1 tab PO Q6HR PRN PRN Reason: Moderate Pain Stop: 06/19/18 01:55 Last Admin: 12/22/17 17:12 Dose: 1 tab Albuterol Sulfate (Proventil Neb) 2.5 mg IH [id number] PRN; Protocol PRN Reason: Shortness Of Breath/Wheezing Stop: 06/20/18 01:53 Last Admin: 12/22/17 18:09 Dose: 2.5 mg Amitriptyline HCl (Elavil) 25 mg PO HS JORDY Stop: 06/18/18 23:46 Last Admin: 12/24/17 22:03 Dose: 25 mg Amlodipine Besylate (Norvasc) 5 mg PO BID JORDY PRN Reason: Protocol Stop: 06/24/18 09:01 Last Admin: 12/25/17 11:02 Dose: 5 mg Aspirin (Aspirin Ec) 81 mg PO DAILY JORDY Stop: 06/18/18 23:46 Last Admin: 12/25/17 11:02 Dose: 81 mg Atorvastatin Calcium (Lipitor) 10 mg PO HS JORDY Stop: 06/18/18 23:46 Last Admin: 12/24/17 22:03 Dose: 10 mg Dextrose/Water (Dextrose 50% (Syg)) 25 ml IVP AD PRN PRN Reason: Hypoglycemia Stop: 06/18/18 23:22 Docusate Sodium (Colace) 100 mg PO DAILY PRN; Protocol PRN Reason: Constipation Stop: 06/22/18 13:42 Glucagon (Glucagen) 1 mg IM ONCE PRN PRN Reason: Hypoglycemia Stop: 06/18/18 23:22 Glucose (Gluctose) 15 gm PO ONCE PRN PRN Reason: Hypoglycemia Stop: 06/18/18 23:22 Glucose (Gluctose) 30 gm PO ONCE PRN PRN Reason: Hypoglycemia Stop: 06/18/18 23:22 Heparin Sodium (Porcine) (Heparin) 5,000 unit SQ Q12HCO [facility] Stop: 06/24/18 18:01 Last Admin: 12/25/17 04:40 Dose: 5,000 unit Dextrose (Dextrose 5%) 1,000 mls @ 100 mls/hr IVC .Q10H PRN PRN Reason: HYPOGLYCEMIA Stop: 06/18/18 23:22 Cefazolin Sodium (Ancef Premix 2,000 Mg/100 Ml) 2,000 mg in 100 mls @ 200 mls/ hr IVPB Q8HR JORDY PRN Reason: Protocol Stop: 06/25/18 16:01 Last Admin: 12/25/17 11:02 Dose: 200 mls/hr Insulin Detemir (Levemir) 25 unit SQ HS [facility] Stop: 06/19/18 21:01 Last Admin: 12/24/17 22:03 Dose: 25 unit Insulin Human Lispro (Humalog) 0 units SQ HS [facility] PRN Reason: Protocol Stop: 06/23/18 21:01 Last Admin: 12/24/17 22:02 Dose: 5 units Insulin Human Lispro (Humalog) 0 units SQ TIDAC [facility] PRN Reason: Protocol Stop: 06/23/18 16:31 Last Admin: 12/25/17 08:00 Dose: Not Given Lorazepam (Ativan) 0.5 mg IVP Q8H PRN PRN Reason: Anxiety Stop: 06/22/18 08:17 Last Admin: 12/23/17 15:53 Dose: 0.5 mg Losartan Potassium (Cozaar) 100 mg PO DAILY [facility] PRN Reason: Protocol Stop: 06/27/18 09:01 Melatonin (Melatonin) 3 mg PO HS PRN PRN Reason: Insomnia Stop: 06/23/18 00:44 Last Admin: 12/23/17 00:02 Dose: 3 mg Metoprolol Succinate (Toprol Xl) 100 mg PO DAILY [facility] Stop: 06/26/18 09:01 Last Admin: 12/25/17 11:01 Dose: 100 mg Metoprolol Tartrate (Lopressor) 5 mg IVP Q6HR PRN PRN Reason: SEE COMMENTS Stop: 06/20/18 07:50 Last Admin: 12/24/17 15:04 Dose: 5 mg Naloxone HCl (Narcan) 0.4 mg IVP Q2MIN PRN PRN Reason: SEE COMMENTS Stop: 06/18/18 23:14 - Imaging and Cardiology Echo: report reviewed Cardiac cath: report reviewed Other Results: 12 hour tele: avg HR=90 SR. - EKG Interpretation EKG results cardiology: personally reviewed Consult Discharge Plan - Plan Referrals: Babak Lamas DO [Primary Care Provider] - Avel Holcomb MD [Partnered Physician] - 01/08/18 1:30 pm Prescriptions: ceFAZolin [Ancef] 2,000 mg IV Q8H #111 vial
[2017-12-25 20:54] LABS: C-Reactive Protein 85 mg/L (Less than 10)
[2017-12-25] MEDS: Insulin DETEMIR 100 UNIT/ML X5UNITS SQ SCH (22:31)
[2017-12-26] MEDS: CeFAZolin Pre 2,000 MG/100 ML 2,000 MG/100 ML BAG IVPB SCH ×4 (01:14→20:38)
[2017-12-26] MEDS: *HR* Heparin 5,000 UNIT/ML VIAL SQ SCH ×2 (04:30→16:34)
[2017-12-26 04:57] LABS: Basophils # 0.1 K/mcL (0.0-0.2); Basophils % 0.6 %; Eosinophils # 0.4 K/mcL (0.0-0.6); Eosinophils % 3.4 %; Hematocrit 28.3 % (37.5-50.1); Hemoglobin 9.8 g/dL (12.9-16.9); Immature Granulocytes % 4.3 % (0-4); Lymphocytes # 1.3 K/mcL (0.6-4.6); Lymphocytes % 11.4 %; Mean Corpuscular HGB Conc 34.6 g/dL (31.6-35.5); Mean Corpuscular Volume 89.6 fL (83.0-100.0); Mean Platelet Volume 10.8 fL (9.4-12.4); Monocytes # 0.7 K/mcL (0.0-1.3); Neutrophils # 8.6 K/mcL (1.6-8.9); Platelet Count 262 K/mcL (140-400); Red Blood Count 3.16 M/mcL (4.19-5.50); Segmented Neutrophils % 74.3 %
[2017-12-26 05:08] LABS: BUN/Creatinine Ratio 15 (6-26); Blood Urea Nitrogen 16 mg/dL (6-20); Calcium 8.2 mg/dL (8.6-10.3); Carbon Dioxide 27 mEq/L (23-29); Chloride 106 mEq/L (98-107); Glucose 132 mg/dL (70-105); Osmolality,Calculated 299 (280-300); Potassium 3.5 mEq/L (3.5-5.1); Sodium 143 mEq/L (136-145); eGFR For African Americans > 60 (> 60); eGFR For Non-African Americans > 60 (> 60)
[2017-12-26] MEDS: Insulin LISPRO 300 UNITS/3 ML VIAL SQ SCH ×4 (08:00→21:44)
--- NOTE | 2017-12-26 09:12 | Internal Med Progress Note ---
Date of Encounter: 12/26/17 - Assessment and plan (1) DVT prophylaxis Current Visit: No Status: Acute (2) Ischemic cardiomyopathy Current Visit: Yes Status: Suspected (3) Diabetes mellitus, type II, insulin dependent Current Visit: Yes Status: Chronic (4) HLD (hyperlipidemia) Current Visit: No Status: Chronic Qualifiers: Hyperlipidemia type: mixed hyperlipidemia Qualified Code(s): E78.2 - Mixed hyperlipidemia (5) Cellulitis Current Visit: Yes Status: Acute Qualifiers: Site of cellulitis: extremity Site of cellulitis of extremity: lower extremity Laterality: left Qualified Code(s): L03.116 - Cellulitis of left lower limb (6) HTN (hypertension) Current Visit: Yes Status: Chronic Qualifiers: Hypertension type: essential hypertension Qualified Code(s): I10 - Essential (primary) hypertension (7) RANDY (acute kidney injury) Current Visit: Yes Status: Resolved (8) Severe sepsis Current Visit: Yes Status: Acute (9) NSTEMI (non-ST elevated myocardial infarction) Current Visit: Yes Status: Acute (10) Osteomyelitis Current Visit: Yes Status: Acute Qualifiers: Osteomyelitis type: other acute Osteomyelitis location: foot Laterality: left Qualified Code(s): M86.172 - Other acute osteomyelitis, left ankle and foot (11) Diabetic polyneuropathy Current Visit: Yes Status: Chronic Qualifiers: Diabetes mellitus type: type 2 Qualified Code(s): E11.42 - Type 2 diabetes mellitus with diabetic polyneuropathy - Time Spent With Patient Total time spent is greater than 50% in coordination of care (as documented) at patient's floor/unit and/or counseling patient: - Subjective Interval history: The patient is seen and examined at bedside. He is sitting in chair without complaint today. He did have wound vac placed. - Constitutional Vitals: Temp Pulse Resp BP Pulse Ox 97.5 F L 104 16 164/89 91 12/26/17 07:07 12/26/17 07:07 12/26/17 07:07 12/26/17 07:07 12/26/17 07:07 General appearance: Present: A&O X 3, no acute distress, answers questions appropriately Internal Medicine: Result - Labs CBC & Chem 7: 12/26/17 04:38 12/26/17 04:38 Labs: Short CBC 12/26/17 Range/Units 04:38 WBC 11.5 H (4.3-11.1) K/mcL Hgb 9.8 L (12.9-16.9) g/dL Hct 28.3 L (37.5-50.1) % Plt Count 262 (140-400) K/mcL Neutrophils # 8.6 (1.6-8.9) K/mcL BMP 12/25/17 12/26/17 04:45 04:38 Sodium 139 143 Potassium 3.6 3.5 Chloride 106 106 Carbon Dioxide 28 27 BUN 15 16 Creatinine 1.09 1.09 Glucose 134 H 132 H Calcium 8.3 L 8.2 L - ABG Interpretation ABG results: ABG ABG pH 7.46 pH Units (7.32-7.45) H 12/20/17 18:20 ABG pCO2 33 mmHg (35-45) L 12/20/17 18:20 ABG pO2 70 mmHg (85-104) L 12/20/17 18:20 ABG O2 Saturation 95 % (95-98) 12/20/17 18:20 PT/INR, D-dimer PT 11.8 Seconds (9.4-12.1) 12/20/17 19:44 Consult Discharge Plan - Plan Referrals: Babak Lamas DO [Primary Care Provider] - Avel Holcomb MD [Partnered Physician] - 01/08/18 1:30 pm Prescriptions: ceFAZolin [Ancef] 2,000 mg IV Q8H #111 vial
--- NOTE | 2017-12-26 10:50 | Discharge Summary ---
Orders not resulted at time of discharge: Pending orders 12/24/17 13:10 ECG 12 lead ECG [ECG] Routine Date of Encounter: 12/26/17 - Discharge Diagnosis (1) DVT prophylaxis Status: Acute (2) Ischemic cardiomyopathy Status: Suspected (3) Diabetes mellitus, type II, insulin dependent Status: Chronic (4) HLD (hyperlipidemia) Status: Chronic Qualifiers: Hyperlipidemia type: mixed hyperlipidemia Qualified Code(s): E78.2 - Mixed hyperlipidemia (5) Cellulitis Status: Acute Qualifiers: Site of cellulitis: extremity Site of cellulitis of extremity: lower extremity Laterality: left Qualified Code(s): L03.116 - Cellulitis of left lower limb (6) HTN (hypertension) Status: Chronic Qualifiers: Hypertension type: essential hypertension Qualified Code(s): I10 - Essential (primary) hypertension (7) RANDY (acute kidney injury) Status: Resolved (8) Severe sepsis Status: Acute (9) NSTEMI (non-ST elevated myocardial infarction) Status: Acute (10) Osteomyelitis Status: Acute Qualifiers: Osteomyelitis type: other acute Osteomyelitis location: foot Laterality: left Qualified Code(s): M86.172 - Other acute osteomyelitis, left ankle and foot (11) Diabetic polyneuropathy Status: Chronic Qualifiers: Diabetes mellitus type: type 2 Qualified Code(s): E11.42 - Type 2 diabetes mellitus with diabetic polyneuropathy Hospital course: Mr. Vargas is a 47 year old male - Time Spent with Patient Total time spent providing and/or coordinating discharge services: - Discharge Medications Prescriptions: ceFAZolin [Ancef] 2,000 mg IV Q8H #111 vial Home Medications: Furosemide [Lasix] 40 mg PO DAILY #30 tablet 11/10/15 [Rx] Lisinopril [Zestril] 10 mg PO DAILY #30 tablet 11/10/15 [Rx] Metformin HCl [Metformin HCl ER] 1,000 mg PO BID 01/04/16 [History] Amitriptyline [Elavil] 25 mg PO HS 03/16/17 [History] Aspirin [Lo-Dose Aspirin EC] 81 mg PO DAILY 12/17/17 [History] Insulin NPH Human Isophane [Novolin N] 15 unit SQ BID 12/17/17 [History] Lovastatin [Mevacor] 40 mg PO HS 12/17/17 [History] Metoprolol Tartrate [Lopressor] 50 mg PO BID 12/17/17 [History] ceFAZolin [Ancef] 2,000 mg IV Q8H #111 vial 12/25/17 [Rx] Allergies/Adverse Reactions: 3 Allergy/AdvReac Type Severity Reaction Status Date / Time No Known Allergies Allergy Verified 12/17/17 21:55 Date of admission: 12/17/17 23:13 Primary care physician: Babak Lamas DO Consults: 12/18/17 17:35 Consult to Podiatry [CONS] Routine Consulting Provider: [facility] Reason for Consult: Extensive left foot cellulitis Call Completed: No 12/20/17 16:51 Consult to Infectious Diseases [CONS] Routine Consulting Provider: Infectious Disease [facility] Reason for Consult: Puncture wound, IV abx Call Completed: No 12/20/17 18:44 Consult to Cardiology [CONS] Routine Comment: Consulting Provider: Cardiology [facility] Reason for Consult: elevated troponin, possibl atrial flutter Call Completed: No 12/22/17 08:03 Consult to Nephrology [CONS] Routine Consulting Provider: [facility] Salbador WARNER Reason for Consult: RANDY in severe sepsis. Rule out other causes Call Completed: Yes 12/22/17 09:53 Consult to Project Manager [employer] [CONS] Routine Reason for SW Consult: Jessika saw last week; patient with no insurance and will possibly require placement, IV abx, and wound vac 12/23/17 08:06 Consult to Urology [CONS] Routine Consulting Provider: Urology [facility] Reason for Consult: elevated PVR Time Notified: 08:06 Call Completed: Yes 12/23/17 14:24 Consult to Invasive Line Access Team [CONS] Routine Reason for Consult: home atb Line Type: Midline 12/24/17 13:09 Consult to Cardiac Rehabilitation-Phase1 [CONS] Routine Comment: Reason for Consult: post op PCI Call Completed: Yes - Constitutional Vitals: Temp Pulse Resp BP Pulse Ox 97.5 F L 104 16 164/89 91 12/26/17 07:07 12/26/17 07:07 12/26/17 07:07 12/26/17 07:07 12/26/17 07:07 General appearance: Present: A&O X 3, no acute distress, answers questions appropriately - Patient Status Disposition: Home Health Service Condition: Fair - Discharge Instructions Follow Up With: Babak Lamas DO [Primary Care Provider] - Avel Holcomb MD [Partnered Physician] - 01/08/18 1:30 pm
--- NOTE | 2017-12-26 12:06 | Infectious Disease Progress No ---
Date of Encounter: 12/26/17 Time of Encounter: 12:05 - Assessment and Plan (1) Severe sepsis Current Visit: Yes Status: Acute Patient presented with 3 out of 4 SIRS criteria with fever, tachycardia, leukocytosis. Resolved at this time. Cause is infected traumatic puncture wound of left foot. Lactic acidosis present on admission, has since normalized. Received IV fluid hydration, antibiotics. Further treatment of infection as discussed below. Blood cultures drawn 12/17/17 are negative x 2 sets and 12/20/17 are NGTD x 2 sets. (2) Osteomyelitis Current Visit: Yes Status: Acute Causative organism: MSSA. Source: Traumatic puncture wound. Status post incision and drainage 12/20/[address] Kimble. Operative note reviewed. Evidence of purulent material contacting bone concerning for early osteomyelitis. No weak or damage bone was noted. Intra-op cultures positive for MSSA. No specimen sent to pathology. Check ESR and CRP. Continue cefazolin, but increase to 2 grams IV Q8H with normalization of CrCl ( 70). Duration of treatment depends on the clinical picture, but likely 6 weeks. Monitor renal function and dose-adjust antibiotics. foreign exchange services manager to assist with discharge planning. Awaiting Medicaid approval. Will need weekly CBC, BUN/Cr, ESR, CRP. Will need weekly IV care per protocol. Follow up with ID 01/08/18 at 1330. Qualifiers: Osteomyelitis type: other acute Osteomyelitis location: foot Laterality: left Qualified Code(s): M86.172 - Other acute osteomyelitis, left ankle and foot (3) Cellulitis and abscess of left leg Current Visit: Yes Status: Acute Secondary to traumatic puncture wound. Plan as above. Patient reports Tdap UTD. (4) Puncture wound Current Visit: Yes Status: Acute Due to stepping on a nail. Exacerbated by diabetic neuropathy. (5) Heart failure Current Visit: Yes Status: Acute TTE showed low EF. Cardiology consulted and following. Concern for ICM. Status post [facility] 12/24/17. Qualifiers: Heart failure type: combined systolic and diastolic Heart failure chronicity: acute on chronic Qualified Code(s): I50.43 - Acute on chronic combined systolic (congestive) and diastolic (congestive) heart failure (6) NSTEMI (non-ST elevated myocardial infarction) Current Visit: Yes Status: Acute Per cardiology, likely demand ischemia given lack of ACS symptoms. Further management per primary/cardiology. (7) Diabetes mellitus, type II, insulin dependent Current Visit: Yes Status: Chronic Uncontrolled. HgbA1C 9.5%. Recommend aggressive glucose monitoring and control to promote wound healing and prevent re-infection. - Subjective Interval history: Patient seen and examinedNo acute events noted overnight. Seems to be doing very well clinically. is at bedside. Patient eager to go home. No chest pain no shortness of breath no diarrhea. Patient had a bowel movement yesterday. Blood sugar is well-controlled. Infect Dis PN-Objective Data - Labs CBC & Chem 7: 12/26/17 04:38 12/26/17 04:38 Labs: Laboratory Results - last 24 hr 12/25/17 12/25/17 12/25/17 04:45 04:45 11:35 WBC RBC Hgb Hct MCV MCH MCHC RDW Plt Count MPV Immature Gran % Seg Neutrophils % Lymphocytes % Monocytes % Eosinophils % Basophils % Neutrophils # Lymphocytes # Monocytes # Eosinophils # Basophils # ESR 75 H Sodium 139 Potassium 3.6 Chloride 106 Carbon Dioxide 28 BUN 15 Creatinine 1.09 Est GFR ( Amer) > 60 Est GFR (Non-Af Amer) > 60 BUN/Creatinine Ratio 14 Glucose 134 H POC Glucose 216 H Calculated Osmolality 291 Calcium 8.3 L C-Reactive Protein 85 H 12/25/17 12/25/17 12/26/17 16:26 20:07 04:38 WBC 11.5 H RBC 3.16 L Hgb 9.8 L Hct 28.3 L MCV 89.6 MCH 31.0 MCHC 34.6 RDW 13.0 Plt Count 262 MPV 10.8 Immature Gran % 4.3 H Seg Neutrophils % 74.3 Lymphocytes % 11.4 Monocytes % 6.0 Eosinophils % 3.4 Basophils % 0.6 Neutrophils # 8.6 Lymphocytes # 1.3 Monocytes # 0.7 Eosinophils # 0.4 Basophils # 0.1 ESR Sodium Potassium Chloride Carbon Dioxide BUN Creatinine Est GFR ( Amer) Est GFR (Non-Af Amer) BUN/Creatinine Ratio Glucose POC Glucose 319 H 319 H Calculated Osmolality Calcium C-Reactive Protein 12/26/17 12/26/17 12/26/17 04:38 07:10 11:23 WBC RBC Hgb Hct MCV MCH MCHC RDW Plt Count MPV Immature Gran % Seg Neutrophils % Lymphocytes % Monocytes % Eosinophils % Basophils % Neutrophils # Lymphocytes # Monocytes # Eosinophils # Basophils # ESR Sodium 143 Potassium 3.5 Chloride 106 Carbon Dioxide 27 BUN 16 Creatinine 1.09 Est GFR ( Amer) > 60 Est GFR (Non-Af Amer) > 60 BUN/Creatinine Ratio 15 Glucose 132 H POC Glucose 159 H 262 H Calculated Osmolality 299 Calcium 8.2 L C-Reactive Protein Cultures: Cultures 12/20/17 18:28 Blood Culture - Final Peripheral Venipuncture No growth. 12/20/17 18:28 Blood Culture - Final Peripheral Venipuncture No growth. 12/20/17 12:00 Anaerobic Culture - Final Left Foot No anaerobes were recovered. 12/18/17 17:19 Anaerobic Culture - Final Left Foot No anaerobes were recovered. 12/20/17 12:00 Wound Culture - Final Left Foot Staphylococcus aureus 12/18/17 17:19 Wound Culture - Final Left Foot Staphylococcus aureus Serology 12/22/17 12/18/17 12/18/17 Range/Units 13:43 16:29 16:24 Ur Eosinophil Smear 0 (None Seen) % Urine Creatinine 99 mg/dL Urine Urea Nitrogen 380 mg/dL Exam - Constitutional Vitals: Temp Pulse Resp BP Pulse Ox 98.6 F 97 16 155/91 96 12/26/17 11:20 12/26/17 11:20 12/26/17 11:20 12/26/17 11:20 12/26/17 11:20 General appearance: no acute distress, no febrile - Head Head exam: Present: atraumatic, normocephalic - Neck Neck exam: Present: full ROM - Respiratory Respiratory exam: Present: CTAB. Absent: wheezes - Cardiovascular Cardiovascular exam: Present: RRR, +S2 - GI/Abdominal GI/Abdominal exam: Present: soft. Absent: tenderness Consult Discharge Plan - Plan Referrals: Babak Lamas DO [Primary Care Provider] - Avel Holcomb MD [Partnered Physician] - 01/08/18 1:30 pm Prescriptions: ceFAZolin [Ancef] 2,000 mg IV Q8H #111 vial
[2017-12-26] MEDS: amLODIPine 5 MG TABLET PO SCH ×2 (12:18→20:38)
[2017-12-26] MEDS: Metoprolol XL (24 HR) Succ 50 MG TAB.ER.24H PO SCH (12:18)
[2017-12-26] MEDS: Aspirin Enteric Coated 81 MG Tablet PO SCH (12:19)
--- NOTE | 2017-12-26 14:56 | Podiatry Progress Note ---
Date of Encounter: 12/26/17 Time of Encounter: 12:00 - Assessment and Plan (1) Cellulitis and abscess of left leg Current Visit: Yes Status: Acute (2) Puncture wound Current Visit: Yes Status: Acute Assessment: Puncture wound of the plantar aspect of the left foot with tracking between toes #1 and #2 and to dorsal aspect of foot s/p Incision and drainage left foot, first interspace with debridement and biopsy12/20/17 per Sessions Application of wound vac on 12/24/17 Removed wound vac at bedside today 25ml serosang drainage noted to canister Flushed wound with sterile saline Wound margins remain dark with a large amount of fibrous tissue within wound and mild periwound erythema No vac supplies to floor, placed adaptic to wound at this time, nurse to replace vac as ordered Will need to be changed every Friday Flushed wound with sterile saline, pat dry At this time encouraged to elevate when sitting and do not dangle, dependent edema noted to foot from sitting Continue antibiotics per ID, cefazolin Q8, ID states likely 6 weeks of treatment needed, MSSA growth within wound, BC NTD PT/OT consult if not already done. NAYANA consult for discharge planning- wound vac paperwork faxed to Vikki KRAUS Patient may be discharged but will need to be set up for outpatient I&D- need for serial debridement to remove devitalized tissue and wash wound Will need to follow up with in clinic 1 week after discharge Minimal weight bearing to heel only. at bedside. Post op shoe to bedside WBC 11.5, afebrile, continuing to monitor wbc Subjective Principal diagnosis: Left foot infection, elevated troponin Interval history: Patient is s.p incision and drainage left foot, first interspace with debridement and biopsy per Sessions on 12/20/17. Patient resting comfortably on arrival. Wound vac intact, 25cc sero sang drainage noted. Patient is neuropathic and denies any pain. States that overall he does feel better. Denies any chills, n/v or flu like symptoms. Denies calf pain or SOB. Family at bedside at this time. Objective - Vital Signs Vital Signs: Vital Signs Temp Pulse Resp BP Pulse Ox 12/26/17 11:20 98.6 F 97 16 155/91 96 12/26/17 07:07 97.5 F L 104 16 164/89 91 12/26/17 05:00 98 F 99 18 148/82 95 12/25/17 22:30 93 12/25/17 19:58 98.4 F 97 16 182/94 93 12/25/17 15:37 98.5 F 86 18 149/75 93 Intake and Output 12/25/17 12/26/17 12/26/17 23:59 07:59 15:59 Intake Total 340 / 340 100 / 100 960 / 960 Output Total 750 / 750 1150 / 1150 500 / 500 Balance -410 / -410 -1050 / -1050 460 / 460 Intake: IV Fluids 100 / 100 100 / 100 Ancef Premix 2,000 MG/100 ML 2, 100 / 100 100 / 100 000 mg In 100 ml @ 200 mls/hr IVPB Q8HR [facility] Rx#:[id number] Oral 240 / 240 0 / 0 960 / 960 Output: Urine 750 / 750 1150 / 1150 500 / 500 Other: Meal Dinner Lunch Percent of Meal Consumed 100% 100% Stool Size Moderate Stool Consistency formed Stool Color Brown # Bowel Movements 2 Weight 119.4 kg Blood Glucose* 319 159 262 Patient Weight 12/26/17 23:59 Weight 119.4 kg - Exam Exam: Podiatry General Exam: General appearance: alert awake oriented X 3. Calm and pleasant, no acute distress.. Vascular: Pedal pulses +2/4 DP/PT , No evidence of cyanosis, pallor or rubor, Edema graded at 1+/4, Skin Temperature warm, No calf pain with manual compression. capillary refill time is immediate to digits. Neurologic: Loss of sensation to light or moderate touch Postop Exam: S/P I&D of foot abscess Open incision line [id number]. 50% healthy granulation tissue noted to base, 50% yellow fibrous tissue. Scant serous drainage. No odor. No sinus tracts or tunneling. There remains to be moderate periwound edema and erythema as well as warmth, slightly decreased from 12/23 assessment. No fluctuance noted. At proximal border of wound there is slight skin darkening noted consistent with possible compromise of tissue, will continue to monitor for worsening. Area measures 0.3cmx0.2cm and another [id number] area at proximal base. No ulceration. . Wound vac was intact on arrival, 25cc serosang drainage - Lab Result Diagrams: 12/26/17 04:38 12/26/17 04:38 Labs: Abnormal lab results WBC 11.5 K/mcL (4.3-11.1) H 12/26/17 04:38 RBC 3.16 M/mcL (4.19-5.50) L 12/26/17 04:38 Hgb 9.8 g/dL (12.9-16.9) L 12/26/17 04:38 Hct 28.3 % (37.5-50.1) L 12/26/17 04:38 Immature Gran % 4.3 % (0-4) H 12/26/17 04:38 Metamyelocytes % 2.0 % (0) H 12/23/17 04:49 Myelocytes % 4.0 % (0) H 12/24/17 04:19 Toxic Granulation Present (Not Present) A 12/24/17 04:19 Large Platelets Present (Not Present) A 12/24/17 04:19 ESR 75 mm/hr (0-10) H 12/25/17 04:45 APTT 65.9 Seconds (26.0-36.0) H 12/22/17 15:59 ABG pH 7.46 pH Units (7.32-7.45) H 12/20/17 18:20 ABG pCO2 33 mmHg (35-45) L 12/20/17 18:20 ABG pO2 70 mmHg (85-104) L 12/20/17 18:20 Glucose 132 mg/dL (70-105) H 12/26/17 04:38 POC Glucose 262 mg/dL (70-99) H 12/26/17 11:23 Hemoglobin A1c 9.5 % (-5.6) H 12/17/17 20:13 Calcium 8.2 mg/dL (8.6-10.3) L 12/26/17 04:38 Troponin I 0.44 ng/mL (< 0.04) H* 12/21/17 12:43 C-Reactive Protein 85 mg/L (Less than 10) H 12/25/17 04:45 Albumin 2.8 g/dL (3.5-5.7) L 12/24/17 04:19 Globulin 3.7 g/dL (2.4-3.5) H 12/24/17 04:19 Albumin/Globulin Ratio 0.8 (1.1-2.2) L 12/24/17 04:19 Microbiology, Last 48 Hours 12/20/17 18:28 Blood Culture - Final Peripheral Venipuncture No growth. 12/20/17 18:28 Blood Culture - Final Peripheral Venipuncture No growth. 12/20/17 12:00 Anaerobic Culture - Final Left Foot No anaerobes were recovered. Consult Discharge Plan - Plan Referrals: Babak Lamas DO [Primary Care Provider] - Avel Holcomb MD [Partnered Physician] - 01/08/18 1:30 pm Prescriptions: ceFAZolin [Ancef] 2,000 mg IV Q8H #111 vial
--- NOTE | 2017-12-26 16:21 | Internal Med Progress Note ---
<Frandy Bernard - Last Filed: 12/26/17 16:17> Date of Encounter: 12/26/17 Time of Encounter: 16:18 - Assessment and plan (1) Severe sepsis Current Visit: Yes Status: Acute Assessment and plan: 3 SIRS criteria on admission: Fever, tachycardia, leukocytosis, Randy suspected source of infection: left lower extremity cellulitis left foot CT showed severe cellulitis of the left foot, left ankle without discrete agonized fluid collection, no acute fracture or gross dislocation, no aggressive osseous destruction, no obvious foreign body identified. In the emergency department, patient received 2 fluid boluses with appropriate increase in blood pressure. He also received one dose vancomycin, one dose Zosyn, one dose ciprofloxacin. Blood cultures NGTD, repeat blood cultures (after being febrile) no growth to date Wound cultures: MSSA on two occasions - Vanc discontinued MSSA - Patient was treated towards MSSA alone. He was febrile two nights ago and so Levaquin was added at that time. ID is now on board, recommend Continued cefazolin PICC is in place, will be d/c home tomorrow. patient is on Cephazolin Q8 antibiotic and he cannot be d/c today as home health cannot make it to his house today to teach them to dose antibiotics. (2) DVT prophylaxis Current Visit: Yes Status: Acute Assessment and plan: SQ Heparin (3) Ischemic cardiomyopathy Current Visit: Yes Status: Suspected Assessment and plan: Status post left heart catheterization with findings of previous stent in the mid RCA with severe in-stent stenosis and previous stent in the mid circumflex with severe in-stent stenosis. Patient has successful PTCA in the mid RCA. EF was 30-35%. continue BB, ASA, Statin. Patient started on losartan. (4) Diabetes mellitus, type II, insulin dependent Current Visit: Yes Status: Chronic Assessment and plan: History of uncontrolled type II diabetes continue basal and medium dose sliding scale insulin - weight based and adjust as needed ADA diet Goal inpatient setting is <180. (5) HLD (hyperlipidemia) Current Visit: Yes Status: Chronic Assessment and plan: Continue home Statin Qualifiers: Hyperlipidemia type: mixed hyperlipidemia Qualified Code(s): E78.2 - Mixed hyperlipidemia (6) Cellulitis Current Visit: Yes Status: Acute Assessment and plan: Plan as above Qualifiers: Site of cellulitis: extremity Site of cellulitis of extremity: lower extremity Laterality: left Qualified Code(s): L03.116 - Cellulitis of left lower limb (7) HTN (hypertension) Current Visit: Yes Status: Chronic Assessment and plan: Improving. Continue home beta shira, hold lisinopril due to renal function - Continue metoprolol succinate. - Continue losartan, amlodipine Qualifiers: Hypertension type: essential hypertension Qualified Code(s): I10 - Essential (primary) hypertension (8) RANDY (acute kidney injury) Current Visit: Yes Status: Resolved Assessment and plan: Resolved. At baseline. (9) NSTEMI (non-ST elevated myocardial infarction) Current Visit: Yes Status: Acute Assessment and plan: Elevated troponins on arrival Patient underwent LHC with PTCA to the RCA without complication Remaining disease was not altered in any way Management per cardiology (10) Osteomyelitis Current Visit: Yes Status: Acute Assessment and plan: plan as above. Qualifiers: Osteomyelitis type: other acute Osteomyelitis location: foot Laterality: left Qualified Code(s): M86.172 - Other acute osteomyelitis, left ankle and foot - Time Spent With Patient Total time spent is greater than 50% in coordination of care (as documented) at patient's floor/unit and/or counseling patient: - Subjective Interval history: Patient laying in bed this morning without any complaints. He reports he is ready to go home. He denies any chest pain, shortness of breath abdominal pain , nausea, vomiting, lower extremity pain or swelling. - Constitutional Vitals: Temp Pulse Resp BP Pulse Ox 97 F L 91 16 165/88 94 12/26/17 15:47 12/26/17 15:47 12/26/17 15:47 12/26/17 15:47 12/26/17 15:47 General appearance: Present: A&O X 3, no acute distress, answers questions appropriately - Other Additional findings: General: without distress Heart: Regular rate and rhythm with no murmur Lungs: Clear to auscultation bilaterally Abdomen: Soft nontender, nondistended positive bowel sounds Skin: warm and dry, absent rash Extremities: Left lower extremity and soft boot with wound VAC in place. Right wrist incision intact and dressed. Without discharge. Neuro: Alert oriented 3 Vascular: Pedal and radial pulses 2 out of 4 Internal Medicine: Result - Labs CBC & Chem 7: 12/26/17 04:38 12/26/17 04:38 Labs: Short CBC 12/26/17 Range/Units 04:38 WBC 11.5 H (4.3-11.1) K/mcL Hgb 9.8 L (12.9-16.9) g/dL Hct 28.3 L (37.5-50.1) % Plt Count 262 (140-400) K/mcL Neutrophils # 8.6 (1.6-8.9) K/mcL BMP 12/25/17 12/26/17 04:45 04:38 Sodium 139 143 Potassium 3.6 3.5 Chloride 106 106 Carbon Dioxide 28 27 BUN 15 16 Creatinine 1.09 1.09 Glucose 134 H 132 H Calcium 8.3 L 8.2 L - ABG Interpretation ABG results: ABG ABG pH 7.46 pH Units (7.32-7.45) H 12/20/17 18:20 ABG pCO2 33 mmHg (35-45) L 12/20/17 18:20 ABG pO2 70 mmHg (85-104) L 12/20/17 18:20 ABG O2 Saturation 95 % (95-98) 12/20/17 18:20 PT/INR, D-dimer PT 11.8 Seconds (9.4-12.1) 12/20/17 19:44 Consult Discharge Plan - Plan Referrals: Babak Lamas DO [Primary Care Provider] - Avel Holcomb MD [Partnered Physician] - 01/08/18 1:30 pm Prescriptions: ceFAZolin [Ancef] 2,000 mg IV Q8H #111 vial <Warren Fuchs - Last Filed: 12/26/17 18:12> Date of Encounter: 12/26/17 - Assessment and plan (1) Osteomyelitis Current Visit: Yes Status: Acute Qualifiers: Osteomyelitis type: other acute Osteomyelitis location: foot Laterality: left Qualified Code(s): M86.172 - Other acute osteomyelitis, left ankle and foot (2) Ischemic cardiomyopathy Current Visit: Yes Status: Suspected (3) Diabetes mellitus, type II, insulin dependent Current Visit: Yes Status: Chronic (4) HLD (hyperlipidemia) Current Visit: Yes Status: Chronic Qualifiers: Hyperlipidemia type: mixed hyperlipidemia Qualified Code(s): E78.2 - Mixed hyperlipidemia (5) Cellulitis Current Visit: Yes Status: Acute Qualifiers: Site of cellulitis: extremity Site of cellulitis of extremity: lower extremity Laterality: left Qualified Code(s): L03.116 - Cellulitis of left lower limb (6) HTN (hypertension) Current Visit: Yes Status: Chronic Qualifiers: Hypertension type: essential hypertension Qualified Code(s): I10 - Essential (primary) hypertension (7) RANDY (acute kidney injury) Current Visit: Yes Status: Resolved (8) Severe sepsis Current Visit: Yes Status: Acute (9) NSTEMI (non-ST elevated myocardial infarction) Current Visit: Yes Status: Acute (10) DVT prophylaxis Current Visit: Yes Status: Acute - Time Spent With Patient Total time spent is greater than 50% in coordination of care (as documented) at patient's floor/unit and/or counseling patient: - Constitutional Vitals: Temp Pulse Resp BP Pulse Ox 97 F L 91 16 165/88 94 12/26/17 15:47 12/26/17 15:47 12/26/17 15:47 12/26/17 15:47 12/26/17 15:47 Internal Medicine: Result - Labs CBC & Chem 7: 12/26/17 04:38 12/26/17 04:38 Labs: Short CBC 12/26/17 Range/Units 04:38 WBC 11.5 H (4.3-11.1) K/mcL Hgb 9.8 L (12.9-16.9) g/dL Hct 28.3 L (37.5-50.1) % Plt Count 262 (140-400) K/mcL Neutrophils # 8.6 (1.6-8.9) K/mcL BMP 12/25/17 12/26/17 04:45 04:38 Sodium 139 143 Potassium 3.6 3.5 Chloride 106 106 Carbon Dioxide 28 27 BUN 15 16 Creatinine 1.09 1.09 Glucose 134 H 132 H Calcium 8.3 L 8.2 L - ABG Interpretation ABG results: ABG ABG pH 7.46 pH Units (7.32-7.45) H 12/20/17 18:20 ABG pCO2 33 mmHg (35-45) L 12/20/17 18:20 ABG pO2 70 mmHg (85-104) L 12/20/17 18:20 ABG O2 Saturation 95 % (95-98) 12/20/17 18:20 PT/INR, D-dimer PT 11.8 Seconds (9.4-12.1) 12/20/17 19:44 - Attending Attestation I examined this patient and my medical decision-making was reviewed with the Resident Physician on 12/26/17. I agree with the documented findings, disposition and treatment plan as described except to the extent set forth below. Mr Vargas is currently admitted for OM and NSTEMI. He remains moderate to high risk due to potential for worsening clinical status. Mr Vargas is feeling OK. He just finished breakfast. Working on d/c planning. No fever or chills. No GI issues. Exam alert Comfortable Mucus membranes dry Heart reg No wheeze I/P 1. OM 2. CAD Further diagnoses and plan as above.
[2017-12-26] MEDS: Insulin DETEMIR 100 UNIT/ML X5UNITS SQ SCH (21:43)
[2017-12-27] MEDS: CeFAZolin Pre 2,000 MG/100 ML 2,000 MG/100 ML BAG IVPB SCH (04:44)
[2017-12-27] MEDS: *HR* Heparin 5,000 UNIT/ML VIAL SQ SCH (05:27)
[2017-12-27 07:38] VITALS: BP 161/91
[2017-12-27] MEDS: Insulin LISPRO 300 UNITS/3 ML VIAL SQ SCH (08:18)
[2017-12-27] MEDS: amLODIPine 5 MG TABLET PO SCH (08:19)
[2017-12-27] MEDS: Metoprolol XL (24 HR) Succ 50 MG TAB.ER.24H PO SCH (08:20)
[2017-12-27] MEDS: Aspirin Enteric Coated 81 MG Tablet PO SCH (08:20)
--- NOTE | 2017-12-27 09:04 | Discharge Summary ---
<Frandy Bernard - Last Filed: 12/27/17 08:58> Date of Encounter: 12/27/17 Time of Encounter: 08:58 - Discharge Diagnosis (1) Severe sepsis Priority: Primary Status: Resolved (2) NSTEMI (non-ST elevated myocardial infarction) Priority: Secondary Status: Resolved (3) Cellulitis Priority: Secondary Status: Acute Qualifiers: Site of cellulitis: extremity Site of cellulitis of extremity: lower extremity Laterality: left Qualified Code(s): L03.116 - Cellulitis of left lower limb (4) Ischemic cardiomyopathy Priority: Secondary Status: Chronic (5) DVT prophylaxis Priority: Secondary Status: Acute (6) Diabetes mellitus, type II, insulin dependent Priority: Secondary Status: Chronic (7) HLD (hyperlipidemia) Priority: Secondary Status: Chronic Qualifiers: Hyperlipidemia type: mixed hyperlipidemia Qualified Code(s): E78.2 - Mixed hyperlipidemia (8) HTN (hypertension) Priority: Secondary Status: Chronic Qualifiers: Hypertension type: essential hypertension Qualified Code(s): I10 - Essential (primary) hypertension (9) RANDY (acute kidney injury) Priority: Secondary Status: Resolved (10) Osteomyelitis Priority: Secondary Status: Acute Qualifiers: Osteomyelitis type: other acute Osteomyelitis location: foot Laterality: left Qualified Code(s): M86.172 - Other acute osteomyelitis, left ankle and foot Hospital course: Mr. Vargas is a 47 year old male presented to [facility] with left foot cellulitis on . Patient reported that 1-1/2 weeks before admission he had stepped on a nail punctured his left heel but did not notice this due to having diabetic neuropathy. He was prescribed outpatient antibiotics which did not improve his cellulitis and therefore presented to the hospital. Initially he was found to be septic with a fever 101.2. Patient has uncontrolled diabetes as well with a hemoglobin A1c of 9.5. Patient was started on broad-spectrum IV antibiotics. Blood and wound cultures were sent. Podiatry was consulted and patient underwent department in the operating room with the placement of wound VAC. Patient was found to have osteomyelitis. Wound cultures grew MSSA and patient was started on cefazolin as recommended by ID which he will be treated for total of 6 weeks and follow-up with infectious disease outpatient. Patient sepsis resolved with antibiotic and IV fluids. Patient also has a history of ischemic cardiomyopathy and had elevated troponin. Cardiology was consulted. Patient had a repeat echocardiogram which showed a EF of 35-40% which was a decrease compared to previous echocardiogram on 07/2016 which had a EF of 55%. Plan was to take patient to left heart catheterization however due to his acute kidney injury secondary to sepsis cardiology wanted \ resolved. Nephrology ordered a renal ultrasound which showed elevated postvoid residual bladder. Urology was consulted and retested postvoid residual which was normal and signed off. He did not require a Mccarthy catheter placement. Patient's renal function improved with withholding nephrotoxic agents, NAIMA inhibitor's and resolution of sepsis. He was started on losartan for blood pressure control. Cardiology took patient to left heart catheterization and found severe 2 vessel coronary artery disease with 50-60% stenosis in the mid LAD, 100% in-stent stenosis in the mid circumflex, 60% stenosis in the proximal RCA. Patient underwent successful PTCA in the mid RCA. His systolic EF was 30-35%. Patient was started on Plavix by cardiology. Plan: Patient will be discharged with home health for wound VAC, IV infusion. He has a left upper extremity PICC line. His new medications will include Plavix, metoprolol succinate 100 mg daily, losartan 100 mg daily, amlodipine 5 mg twice a day, cefazolinand 2000 g IV every 8 hours. Patient needs extensive education and improve control of his diabetes. He also needs to comply with to antiplatelet therapy with aspirin and Plavix. He will follow-up with cardiology , infectious disease, podiatary, wound care outpatient. Discharge discussed with: patient, family - Time Spent with Patient Total time spent providing and/or coordinating discharge services: - Discharge Medications Prescriptions: amLODIPine [Norvasc] 5 mg PO BID #60 tablet ceFAZolin [Ancef] 2,000 mg IV Q8H #111 vial Clopidogrel [Plavix] 75 mg PO DAILY #30 tablet Losartan [Cozaar] 100 mg PO DAILY #120 tablet Melatonin 3 mg PO HS PRN #30 tablet PRN Reason: Insomnia Metoprolol XL (24 HR) Succ [Toprol Xl] 100 mg PO DAILY #60 tab.er.24h Home Medications: Furosemide [Lasix] 40 mg PO DAILY #30 tablet 11/10/15 [Rx] Metformin HCl [Metformin HCl ER] 1,000 mg PO BID 01/04/16 [History] Amitriptyline [Elavil] 25 mg PO HS 08/06/17 [History] Aspirin [Lo-Dose Aspirin EC] 81 mg PO DAILY 12/17/17 [History] Insulin NPH Human Isophane [Novolin N] 15 unit SQ BID 12/17/17 [History] Lovastatin [Mevacor] 40 mg PO HS 12/17/17 [History] ceFAZolin [Ancef] 2,000 mg IV Q8H #111 vial 12/25/17 [Rx] Clopidogrel [Plavix] 75 mg PO DAILY #30 tablet 12/27/17 [Rx] Losartan [Cozaar] 100 mg PO DAILY #120 tablet 12/27/17 [Rx] Melatonin 3 mg PO HS PRN #30 tablet 12/27/17 [Rx] Metoprolol XL (24 HR) Succ [Toprol Xl] 100 mg PO DAILY #60 tab.er.24h 12/27/17 [ Rx] amLODIPine [Norvasc] 5 mg PO BID #60 tablet 12/27/17 [Rx] Allergies/Adverse Reactions: 3 Allergy/AdvReac Type Severity Reaction Status Date / Time No Known Allergies Allergy Verified 12/17/17 21:55 Date of admission: 12/17/17 23:13 Primary care physician: Babak Lamas DO Consults: 12/18/17 17:35 Consult to Podiatry [CONS] Routine Consulting Provider: Podiatry [facility] Reason for Consult: Extensive left foot cellulitis Call Completed: No 12/20/17 16:51 Consult to Infectious Diseases [CONS] Routine Consulting Provider: Infectious Disease [facility] Reason for Consult: Puncture wound, IV abx Call Completed: No 12/20/17 18:44 Consult to Cardiology [CONS] Routine Comment: Consulting Provider: Cardiology [facility] Reason for Consult: elevated troponin, possibl atrial flutter Call Completed: No 12/22/17 08:03 Consult to Nephrology [CONS] Routine Consulting Provider: [facility] Reason for Consult: RANDY in severe sepsis. Rule out other causes Call Completed: Yes 12/22/17 09:53 Consult to [employer]ing [employer]ic [CONS] Routine Reason for SW Consult: Jessika saw last week; patient with no insurance and will possibly require placement, IV abx, and wound vac 12/23/17 08:06 Consult to Urology [CONS] Routine Consulting Provider: Urology [facility] Reason for Consult: elevated PVR Time Notified: 08:06 Call Completed: Yes 12/23/17 14:24 Consult to Invasive Line Access Team [CONS] Routine Reason for Consult: home atb Line Type: Midline 12/24/17 13:09 Consult to Cardiac Rehabilitation-Phase1 [CONS] Routine Comment: Reason for Consult: post op PCI Call Completed: Yes Discharging clinician: Frandy Bernard Anticipated date of discharge: 12/27/17 - Constitutional Vitals: Temp Pulse Resp BP Pulse Ox 98.2 F 94 15 161/91 97 12/27/17 07:35 12/27/17 07:35 12/27/17 07:35 12/27/17 07:35 12/27/17 07:35 General appearance: Present: A&O X 3, no acute distress, answers questions appropriately - Other Additional findings: General: without distress Heart: Regular rate and rhythm with no murmur Lungs: Clear to auscultation bilaterally Abdomen: Soft nontender, nondistended positive bowel sounds Skin: warm and dry, absent rash Extremities: Left lower extremity and soft boot with wound VAC in place. Right wrist incision intact and dressed. Without discharge. Neuro: Alert oriented 3 Vascular: Pedal and radial pulses 2 out of 4 - Patient Status Disposition: Home Health Service Condition: Fair Functional capacity at discharge: independent ambulation Overall status at discharge: patient is progressing back to baseline - Discharge Instructions Instructions: Metoprolol (By mouth), Amlodipine (By mouth), Losartan (By mouth) , Clopidogrel (By mouth), Melatonin (By mouth), Cellulitis (DC), Acute Wound Care (GEN) Follow Up With: Babak Lamas DO [Primary Care Provider] - Avel Holcomb MD [Partnered Physician] - 01/08/18 1:30 pm - Diet and Activity Activity: as per physical therapy Diet: diabetic diet, low fat, low cholesterol, low salt diet <Warren Fuchs - Last Filed: 12/27/17 14:55> Date of Encounter: 12/27/17 - Discharge Diagnosis (1) Osteomyelitis Status: Acute Qualifiers: Osteomyelitis type: other acute Osteomyelitis location: foot Laterality: left Qualified Code(s): M86.172 - Other acute osteomyelitis, left ankle and foot (2) Severe sepsis Status: Resolved (3) Cellulitis Status: Acute Qualifiers: Site of cellulitis: extremity Site of cellulitis of extremity: lower extremity Laterality: left Qualified Code(s): L03.116 - Cellulitis of left lower limb (4) Ischemic cardiomyopathy Status: Chronic (5) DVT prophylaxis Status: Acute (6) Diabetic polyneuropathy Priority: Secondary Status: Chronic Qualifiers: Diabetes mellitus type: type 2 Qualified Code(s): E11.42 - Type 2 diabetes mellitus with diabetic polyneuropathy (7) Diabetes mellitus, type II, insulin dependent Status: Chronic (8) HLD (hyperlipidemia) Status: Chronic Qualifiers: Hyperlipidemia type: mixed hyperlipidemia Qualified Code(s): E78.2 - Mixed hyperlipidemia (9) HTN (hypertension) Status: Chronic Qualifiers: Hypertension type: essential hypertension Qualified Code(s): I10 - Essential (primary) hypertension (10) RANDY (acute kidney injury) Status: Resolved (11) NSTEMI (non-ST elevated myocardial infarction) Status: Resolved Hospital course: Mr. Vargas is a 47 year old male - Time Spent with Patient Total time spent providing and/or coordinating discharge services: 38min Date of admission: 12/17/17 23:13 Primary care physician: Babak Lamas DO Consults: 12/18/17 17:35 Consult to Podiatry [CONS] Routine Consulting Provider: [facility] Reason for Consult: Extensive left foot cellulitis Call Completed: No 12/20/17 16:51 Consult to Infectious Diseases [CONS] Routine Consulting Provider: Infectious Disease [facility] Reason for Consult: Puncture wound, IV abx Call Completed: No 12/20/17 18:44 Consult to Cardiology [CONS] Routine Comment: Consulting Provider: Cardiology [facility] Reason for Consult: elevated troponin, possibl atrial flutter Call Completed: No 12/22/17 08:03 Consult to Nephrology [CONS] Routine Consulting Provider: [facility] Reason for Consult: RANDY in severe sepsis. Rule out other causes Call Completed: Yes 12/22/17 09:53 Consult to Landing Gear Mechanic [CONS] Routine Reason for SW Consult: Jessika saw last week; patient with no insurance and will possibly require placement, IV abx, and wound vac 12/23/17 08:06 Consult to Urology [CONS] Routine Consulting Provider: Urology [facility] Reason for Consult: elevated PVR Time Notified: 08:06 Call Completed: Yes 12/23/17 14:24 Consult to Invasive Line Access Team [CONS] Routine Reason for Consult: home atb Line Type: Midline 12/24/17 13:09 Consult to Cardiac Rehabilitation-Phase1 [CONS] Routine Comment: Reason for Consult: post op PCI Call Completed: Yes - Constitutional Vitals: Temp Pulse Resp BP Pulse Ox 98.2 F 94 15 161/91 97 12/27/17 07:35 12/27/17 07:35 12/27/17 07:35 12/27/17 07:35 12/27/17 07:35 - Attending Attestation I examined this patient and my medical decision-making was reviewed with the Resident Physician on 12/27/17. I agree with the documented findings, disposition and treatment plan as described except to the extent set forth below. Mr Vargas has been admitted for LLE cellulitis and abscess and NSTEMI. He underwent LHC and had PTCA of RCA. He also had debridement of foot and found to have OM. He was seen by ID and abx adjusted. Today he is afebrile. Arrangements have been made for home abx and wound vac. He is ready for discharge home. Exam alert. Comfortable Mucus membranes dry Heart not tachy Lungs no wheeze Plan D/C home today with abx and wound vac
[2017-12-27] MEDS ORDERED: Furosemide 20 MG/2 ML VIAL IVP ONE (09:05)
--- NOTE | 2017-12-29 09:08 | Physician Discharge Referral ---
Home Health/Hosp Referral Info Transfer to: Home Health Provider in Charge Post Discharge: PCP - Diagnosis (1) Osteomyelitis Priority: Primary Status: Acute (2) Severe sepsis Priority: Secondary Status: Resolved (3) Cellulitis Priority: Primary Status: Acute (4) Ischemic cardiomyopathy Priority: Secondary Status: Chronic (5) Diabetic polyneuropathy Priority: Secondary Status: Chronic (6) Diabetes mellitus, type II, insulin dependent Priority: Secondary Status: Chronic (7) HLD (hyperlipidemia) Priority: Secondary Status: Chronic (8) HTN (hypertension) Priority: Secondary Status: Chronic (9) RANDY (acute kidney injury) Priority: Secondary Status: Resolved (10) NSTEMI (non-ST elevated myocardial infarction) Priority: Secondary Status: Resolved - Respiratory Orders None Smoking Cessation: Smoking cessation has been advised. For more information, call the [employer] Quit Line at 5-052-LGOX-NOW. - Dressing/Wound Care Site: L leg Type of Dressing/Treatments w/Frequency: Wound vac orders per podiatry - Diet/Nutrition Diet/Nutrition Orders: Cardiac, No Concentrated Sweets - Activity Activity Orders: Up ad glory - Services Needed Following services are medically necessary services: Nursing, Physical Therapy, Occupational Therapy, Home Infusion - Transfer Medications Prescriptions: amLODIPine [Norvasc] 5 mg PO BID #60 tablet ceFAZolin [Ancef] 2,000 mg IV Q8H #111 vial Clopidogrel [Plavix] 75 mg PO DAILY #30 tablet Losartan [Cozaar] 100 mg PO DAILY #120 tablet Melatonin 3 mg PO HS PRN #30 tablet PRN Reason: Insomnia Metoprolol XL (24 HR) Succ [Toprol Xl] 100 mg PO DAILY #60 tab.er.24h Home Medications: Furosemide [Lasix] 40 mg PO DAILY #30 tablet 11/10/15 [Rx] Metformin HCl [Metformin HCl ER] 1,000 mg PO BID 01/04/16 [History] Amitriptyline [Elavil] 25 mg PO HS 03/16/17 [History] Aspirin [Lo-Dose Aspirin EC] 81 mg PO DAILY 12/17/17 [History] Insulin NPH Human Isophane [Novolin N] 15 unit SQ BID 12/17/17 [History] Lovastatin [Mevacor] 40 mg PO HS 12/17/17 [History] ceFAZolin [Ancef] 2,000 mg IV Q8H #111 vial 12/25/17 [Rx] Clopidogrel [Plavix] 75 mg PO DAILY #30 tablet 12/27/17 [Rx] Losartan [Cozaar] 100 mg PO DAILY #120 tablet 12/27/17 [Rx] Melatonin 3 mg PO HS PRN #30 tablet 12/27/17 [Rx] Metoprolol XL (24 HR) Succ [Toprol Xl] 100 mg PO DAILY #60 tab.er.24h 12/27/17 [ Rx] amLODIPine [Norvasc] 5 mg PO BID #60 tablet 12/27/17 [Rx] Allergies/Adverse Reactions: 3 Allergy/AdvReac Type Severity Reaction Status Date / Time No Known Allergies Allergy Verified 12/17/17 21:55 Certification: Further, I certify that my clinical findings support that this patient is homebound (i.e. absences from home require considerable and taxing effort and are for medical reasons or faith services or infrequently or short duration when for other reasons) because: Homebound Reason: Patient requires assistance of a person or device to safely leave home, Post-surgery restriction and or conditions limit ability to leave home Attestation: My signature below is to certify that this patient is under my care and that I, or nurse practitioner, or a physician's family practice physician assistant working with me, has a face-to -face encounter with this patient.
== END 2017-12-27 10:14 | disposition home health service (06) | DRG 710 ==
LOC: 3NENU 19:45 → EMEROO 19:45 → SUATTDRO 23:13 → 3NENU 23:38 → 2NENU 12-20 20:00
PROVIDERS: ADMIT Pediatrics; ATTEND Internal Medicine

== ENCOUNTER 2019-04-13 16:27 | Inpatient (IN) ==
--- NOTE | 2019-04-13 17:20 | Emergency Department Note ---
Disposition Clinical Impression: Charcot foot due to diabetes mellitus Diabetes Qualifiers: Diabetes mellitus type: type 2 Diabetes mellitus shelter insulin use: unsp ecified shelter insulin use status Diabetes mellitus complication status: with other specified complication Qualified Code(s): E11.69 - Type 2 diabetes mellitus with other specified complication Disposition: Admitted As Inpatient Referrals: Jose Rafael Morfin DO [Primary Care Provider] - Time of Disposition: 18:42 General Adult HPI - General Stated complaint: Left foot pocket fluid,needs admitted Time Seen by Provider: 04/13/19 17:03 Source: patient Mode of arrival: wheelchair Limitations: no limitations Nursing Notes Reviewed: Yes Vital Signs Reviewed: Yes - History of Present Illness HPI Narrative: 49M with PMHx of CHF, COPD, DM, CKD and recent operation on his foot by Dr. Alvarez for Charcot foot presents emergency Department in need of readmission for further surgery on his foot tomorrow. Patient states that after surgery he had some drainage of fluid from the inside of his big toe one of the incisions and was seen in the emergency department. He did not receive any further treatment at that time and followed up with Dr. Alvarez as scheduled. Dr. Alvarez saw him today and has decided the patient needs to go back to the OR for further drainage of fluid in his foot. Patient denies any worsening pain in his foot, fevers, chills, nausea and vomiting, or any other symptoms. He has been nonwe ightbearing on the foot since surgery. Pain Scale: 2 - Related Data Home Medications Medication Instructions Recorded Confirmed Losartan [Cozaar] 100 mg PO QAM 01/22/18 04/06/19 Clopidogrel [Plavix] 75 mg PO QAM 02/18/19 04/06/19 Furosemide [Lasix] 40 mg PO QAM 02/18/19 04/06/19 Metformin HCl [Fortamet] 1,000 mg PO BID 02/18/19 04/06/19 Metoprolol XL (24 HR) Succ [Toprol 50 mg PO QAM 02/18/19 04/06/19 Xl] amLODIPine [Norvasc] 5 mg PO QAM 02/18/19 04/06/19 Aspirin [Adult Aspirin] 1 tab PO DAILY 03/24/19 04/06/19 Atorvastatin Calcium [Lipitor] 1 tab PO DAILY 03/24/19 04/06/19 Insulin Aspart Prot/Insuln Asp 35 unit SQ BID 03/24/19 04/06/19 [Novolog Mix 70-30 Vial] raNITIdine HCl [Zantac] 1 tab PO BID 03/24/19 04/06/19 Previous Rx's Medication Instructions Recorded HYDROcodone/Acet 5/325 mg [[place] 1 tab PO Q6H PRN 3 Days #12 tab 03/24/19 5-325 mg] Ondansetron ODT [Zofran ODT] 4 mg SL Q8HR PRN #12 tab.rapdis 03/24/19 levoFLOXacin [Levaquin] 750 mg PO DAILY #5 tablet 04/06/19 Allergies Allergy/AdvReac Type Severity Reaction Status Date / Time No Known Allergies Allergy Verified 04/06/19 15:18 All systems ED: reviewed and negative except as stated. Review of Systems: As Per HPI Constitutional: Denies: fever, chills, weakness Cardiovascular: Denies: chest pain, palpitations, dyspnea on exertion Respiratory: Denies: cough, dyspnea, wheezes Gastrointestinal: Denies: abdominal pain, nausea, vomiting Musculoskeletal: Reports: other (left foot swollen with fluid drainage from incision sites). Denies: back pain, neck pain Neurological: Denies: headache Past Medical History - Past Medical History Attestation: Yes The following information was validated with the patient. Source: patient Medical history: Reports: CHF, COPD, coronary artery disease, diabetes, GERD, hyperlipidemia, hypertension, myocardial infarction, renal disease, other Surgical history: Reports: angioplasty/stent, orthopedic, other Psychiatric history: Reports: no psych history - Social History Smoking Status: Former smoker Smokeless Tobacco Status: No Alcohol use: Reports: none Drug use: Reports: none Physical Exam - General Limitations: no limitations General appearance: alert, in no apparent distress - Head Head exam: atraumatic, normocephalic - Eye Eye exam: Present: normal appearance, PERRL, EOMI - Neck Neck exam: Present: normal inspection. Absent: tenderness - Chest Chest inspection: Present: normal inspection. Absent: tenderness, rash - Respiratory Respiratory exam: Present: normal lung sounds bilaterally. Absent: respiratory distress, wheezes - Cardiovascular Cardiovascular exam: Present: regular rate, normal rhythm - Abdominal Exam Abdominal exam: Present: soft, Non-Tender. Absent: distention, guarding, rebound, rigidity - Extremities Exam Extremities exam: Present: other (Left foot significantly swollen with several incision sites in the foot closed with derrick and 2 notable sutures. Wounds are partially healed with no active drainage, surrounding erythema, or increased warmth to palpation. There is an area of fluctuance medial to the left great toe near an incision site but no fluid was able to be expressed from the wound.) - Neurological Exam Neurological exam: Present: alert, oriented X3 - Psychiatric Psychiatric exam: Present: normal affect, normal mood - Skin Skin exam: Present: warm, dry Course Vital Signs Temperature 98.9 F 04/13/19 17:15 Pulse Rate 81 04/13/19 17:15 Respiratory Rate 18 04/13/19 17:15 Blood Pressure 134/69 04/13/19 17:15 O2 Sat by Pulse Oximetry 99 04/13/19 17:15 Temperature 98.9 F 04/13/19 17:15 Pulse Rate 71 04/13/19 17:53 Respiratory Rate 16 04/13/19 17:53 Blood Pressure 145/61 04/13/19 17:53 O2 Sat by Pulse Oximetry 98 04/13/19 17:53 Oxygen Delivery Oxygen Delivery Room Air Medical Decision Making - MDM Narrative Medical decision making narrative: Patient presents from podiatry clinic for admission. We will order the preoperative labs and plan on admission to the hospitalist with podiatry co nsultation. Patient has no requests at this time other than to have a drink of water. 1830 - pts lab work is back and does not demonstrate any acute abnormalities. Hospitalist has been paged for admission. 1840 - pt has been accepted by Dr. Cameron, and Dr. Alvarez has requested the patient be started on Zosyn and be made NPO after midnight. - Medical Records Medical records reviewed: Yes I reviewed the patient's medical records. - Lab Data Lab results reviewed: Yes I reviewed the patient's lab results. Result diagrams: 04/13/19 17:34 04/13/19 17:34 Lab Results 04/13/19 04/13/19 04/13/19 Range/Units 17:34 17:34 17:34 WBC 8.0 (4.3-11.1) K/mcL RBC 2.95 L (4.19-5.50) M/mcL Hgb 8.5 L (12.9-16.9) g/dL Hct 26.7 L (37.5-50.1) % MCV 90.5 (83.0-100.0) fL MCH 28.8 (28.0-33.3) pg MCHC 31.8 (31.6-35.5) g/dL RDW 14.2 (11.5-14.5) % Plt Count 270 (140-400) K/mcL MPV 11.9 (9.4-12.4) fL Immature Gran % 0.8 (0-4) % Seg Neutrophils % 71.5 % Lymphocytes % 15.5 % Monocytes % 7.7 % Eosinophils % 4.1 % Basophils % 0.4 % Neutrophils # 5.7 (1.6-8.9) K/mcL Lymphocytes # 1.2 (0.6-4.6) K/mcL Monocytes # 0.6 (0.0-1.3) K/mcL Eosinophils # 0.3 (0.0-0.6) K/mcL Basophils # 0.0 (0.0-0.2) K/mcL PT 11.5 (9.4-12.1) Seconds INR 1.0 APTT 34.2 (26.0-36.0) Seconds Sodium 139 (136-145) mEq/L Potassium 4.0 (3.5-5.1) mEq/L Chloride 106 (98-107) mEq/L Carbon Dioxide 23 (23-29) mEq/L BUN 27 H (6-20) mg/dL Creatinine 1.93 H (0.70-1.30) mg/dL Est GFR ( Amer) 45 L (> 60) Est GFR (Non-Af Amer) 37 L (> 60) BUN/Creatinine Ratio 14 (6-26) Glucose 196 H (70-105) mg/dL Calculated Osmolality 299 (280-300) Calcium 8.1 L (8.6-10.3) mg/dL Blood Type Antibody Screen 04/13/19 Range/Units 17:34 WBC (4.3-11.1) K/mcL RBC (4.19-5.50) M/mcL Hgb (12.9-16.9) g/dL Hct (37.5-50.1) % MCV (83.0-100.0) fL MCH (28.0-33.3) pg MCHC (31.6-35.5) g/dL RDW (11.5-14.5) % Plt Count (140-400) K/mcL MPV (9.4-12.4) fL Immature Gran % (0-4) % Seg Neutrophils % % Lymphocytes % % Monocytes % % Eosinophils % % Basophils % % Neutrophils # (1.6-8.9) K/mcL Lymphocytes # (0.6-4.6) K/mcL Monocytes # (0.0-1.3) K/mcL Eosinophils # (0.0-0.6) K/mcL Basophils # (0.0-0.2) K/mcL PT (9.4-12.1) Seconds INR APTT (26.0-36.0) Seconds Sodium (136-145) mEq/L Potassium (3.5-5.1) mEq/L Chloride (98-107) mEq/L Carbon Dioxide (23-29) mEq/L BUN (6-20) mg/dL Creatinine (0.70-1.30) mg/dL Est GFR ( Amer) (> 60) Est GFR (Non-Af Amer) (> 60) BUN/Creatinine Ratio (6-26) Glucose (70-105) mg/dL Calculated Osmolality (280-300) Calcium (8.6-10.3) mg/dL Blood Type O POSITIVE Antibody Screen NEGATIVE Attestation Statement - Attestation Attestation: Quyen Sloan D.O., examined this patient and my medical decision-making was reviewed with the Resident Physician. I agree with the documented findings, disposition and treatment plan as described except to the extent set forth below.
[2019-04-13 18:02] LABS: Basophils % 0.4 %; Eosinophils # 0.3 K/mcL (0.0-0.6); Eosinophils % 4.1 %; Hematocrit 26.7 % (37.5-50.1); Hemoglobin 8.5 g/dL (12.9-16.9); Immature Granulocytes % 0.8 % (0-4); Lymphocytes # 1.2 K/mcL (0.6-4.6); Lymphocytes % 15.5 %; Mean Corpuscular HGB Conc 31.8 g/dL (31.6-35.5); Mean Corpuscular Hemoglobin 28.8 pg (28.0-33.3); Mean Corpuscular Volume 90.5 fL (83.0-100.0); Mean Platelet Volume 11.9 fL (9.4-12.4); Monocytes # 0.6 K/mcL (0.0-1.3); Monocytes % 7.7 %; Neutrophils # 5.7 K/mcL (1.6-8.9); Platelet Count 270 K/mcL (140-400); Red Blood Count 2.95 M/mcL (4.19-5.50); Red Cell Distribution Width 14.2 % (11.5-14.5); Segmented Neutrophils % 71.5 %
[2019-04-13 18:10] LABS: Prothrombin Time 11.5 Seconds (9.4-12.1)
[2019-04-13 18:12] LABS: Activated Partial Thrombo Time 34.2 Seconds (26.0-36.0)
[2019-04-13 18:21] LABS: Calcium 8.1 mg/dL (8.6-10.3)
--- NOTE | 2019-04-13 18:24 | Emergency Department Note ---
Disposition Clinical Impression: Charcot foot due to diabetes mellitus Diabetes Qualifiers: Diabetes mellitus type: type 2 Diabetes mellitus prison insulin use: unsp ecified prison insulin use status Diabetes mellitus complication status: with other specified complication Qualified Code(s): E11.69 - Type 2 diabetes mellitus with other specified complication Disposition: Admitted As Inpatient Time of Disposition: 20:45 General Adult HPI - General Chief complaint: ED Extremity Problem,Nontraumatic Stated complaint: Left foot pocket fluid,needs admitted Time Seen by Provider: 04/13/19 17:03 Source: patient Mode of arrival: wheelchair Limitations: no limitations - History of Present Illness Pain Scale: 2 - Related Data Home Medications Medication Instructions Recorded Confirmed Losartan [Cozaar] 100 mg PO QAM 01/22/18 04/06/19 Clopidogrel [Plavix] 75 mg PO QAM 02/18/19 04/06/19 Furosemide [Lasix] 40 mg PO QAM 02/18/19 04/06/19 Metformin HCl [Fortamet] 1,000 mg PO BID 02/18/19 04/06/19 Metoprolol XL (24 HR) Succ [Toprol 50 mg PO QAM 02/18/19 04/06/19 Xl] amLODIPine [Norvasc] 5 mg PO QAM 02/18/19 04/06/19 Aspirin [Adult Aspirin] 1 tab PO DAILY 03/24/19 04/06/19 Atorvastatin Calcium [Lipitor] 1 tab PO DAILY 03/24/19 04/06/19 Insulin Aspart Prot/Insuln Asp 35 unit SQ BID 03/24/19 04/06/19 [Novolog Mix 70-30 Vial] raNITIdine HCl [Zantac] 1 tab PO BID 03/24/19 04/06/19 Previous Rx's Medication Instructions Recorded HYDROcodone/Acet 5/325 mg [[place] 1 tab PO Q6H PRN 3 Days #12 tab 03/24/19 5-325 mg] Ondansetron ODT [Zofran ODT] 4 mg SL Q8HR PRN #12 tab.rapdis 03/24/19 levoFLOXacin [Levaquin] 750 mg PO DAILY #5 tablet 04/06/19 Allergies Allergy/AdvReac Type Severity Reaction Status Date / Time No Known Allergies Allergy Verified 04/06/19 15:18 Constitutional: Denies: fever, chills, weakness Cardiovascular: Denies: chest pain, palpitations, dyspnea on exertion Respiratory: Denies: cough, dyspnea, wheezes Gastrointestinal: Denies: abdominal pain, nausea, vomiting Musculoskeletal: Reports: other (left foot swollen with fluid drainage from inci aleshia sites). Denies: back pain, neck pain Neurological: Denies: headache Past Medical History - Past Medical History Medical history: Reports: CHF, COPD, coronary artery disease, diabetes, GERD, hyperlipidemia, hypertension, myocardial infarction, renal disease, other Surgical history: Reports: angioplasty/stent, orthopedic, other Psychiatric history: Reports: no psych history - Social History Smoking Status: Former smoker Smokeless Tobacco Status: No Alcohol use: Reports: none Drug use: Reports: none Physical Exam - General Limitations: no limitations General appearance: alert, in no apparent distress Course Vital Signs Temperature 98.9 F 04/13/19 17:15 Pulse Rate 81 04/13/19 17:15 Respiratory Rate 18 04/13/19 17:15 Blood Pressure 134/69 04/13/19 17:15 O2 Sat by Pulse Oximetry 99 04/13/19 17:15 Temperature 98.9 F 04/13/19 17:15 Pulse Rate 75 04/13/19 19:21 Respiratory Rate 16 04/13/19 20:28 Blood Pressure 141/83 04/13/19 20:28 O2 Sat by Pulse Oximetry 100 04/13/19 19:21 Oxygen Delivery Oxygen Delivery Room Air Medical Decision Making - Lab Data Result diagrams: 04/13/19 17:34 04/13/19 17:34 Lab Results 04/13/19 04/13/19 04/13/19 Range/Units 17:34 17:34 17:34 WBC 8.0 (4.3-11.1) K/mcL RBC 2.95 L (4.19-5.50) M/mcL Hgb 8.5 L (12.9-16.9) g/dL Hct 26.7 L (37.5-50.1) % MCV 90.5 (83.0-100.0) fL MCH 28.8 (28.0-33.3) pg MCHC 31.8 (31.6-35.5) g/dL RDW 14.2 (11.5-14.5) % Plt Count 270 (140-400) K/mcL MPV 11.9 (9.4-12.4) fL Immature Gran % 0.8 (0-4) % Seg Neutrophils % 71.5 % Lymphocytes % 15.5 % Monocytes % 7.7 % Eosinophils % 4.1 % Basophils % 0.4 % Neutrophils # 5.7 (1.6-8.9) K/mcL Lymphocytes # 1.2 (0.6-4.6) K/mcL Monocytes # 0.6 (0.0-1.3) K/mcL Eosinophils # 0.3 (0.0-0.6) K/mcL Basophils # 0.0 (0.0-0.2) K/mcL PT 11.5 (9.4-12.1) Seconds INR 1.0 APTT 34.2 (26.0-36.0) Seconds Sodium 139 (136-145) mEq/L Potassium 4.0 (3.5-5.1) mEq/L Chloride 106 (98-107) mEq/L Carbon Dioxide 23 (23-29) mEq/L BUN 27 H (6-20) mg/dL Creatinine 1.93 H (0.70-1.30) mg/dL Est GFR ( Amer) 45 L (> 60) Est GFR (Non-Af Amer) 37 L (> 60) BUN/Creatinine Ratio 14 (6-26) Glucose 196 H (70-105) mg/dL Calculated Osmolality 299 (280-300) Calcium 8.1 L (8.6-10.3) mg/dL Blood Type Antibody Screen 04/13/19 Range/Units 17:34 WBC (4.3-11.1) K/mcL RBC (4.19-5.50) M/mcL Hgb (12.9-16.9) g/dL Hct (37.5-50.1) % MCV (83.0-100.0) fL MCH (28.0-33.3) pg MCHC (31.6-35.5) g/dL RDW (11.5-14.5) % Plt Count (140-400) K/mcL MPV (9.4-12.4) fL Immature Gran % (0-4) % Seg Neutrophils % % Lymphocytes % % Monocytes % % Eosinophils % % Basophils % % Neutrophils # (1.6-8.9) K/mcL Lymphocytes # (0.6-4.6) K/mcL Monocytes # (0.0-1.3) K/mcL Eosinophils # (0.0-0.6) K/mcL Basophils # (0.0-0.2) K/mcL PT (9.4-12.1) Seconds INR APTT (26.0-36.0) Seconds Sodium (136-145) mEq/L Potassium (3.5-5.1) mEq/L Chloride (98-107) mEq/L Carbon Dioxide (23-29) mEq/L BUN (6-20) mg/dL Creatinine (0.70-1.30) mg/dL Est GFR ( Amer) (> 60) Est GFR (Non-Af Amer) (> 60) BUN/Creatinine Ratio (6-26) Glucose (70-105) mg/dL Calculated Osmolality (280-300) Calcium (8.6-10.3) mg/dL Blood Type O POSITIVE Antibody Screen NEGATIVE Attestation Statement - Attestation Attestation: Quyen Sloan D.O., examined this patient and my medical decision-making was reviewed with the Resident Physician. I agree with the documented findings, disposition and treatment plan as described except to the extent set forth below. 49-year-old male with a history of diabetes, status post operative intervention to the left foot last month who presents with a chief complaint of requirement of surgery. The patient states that he has had some draining from this area and worsening swelling. 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 Patient denies any fevers, chills, nausea or vomiting. No other complaints. Exam: Alert, mentating appropriately in no acute distress. Heart is regular rate and rhythm. Lungs are clear to auscultation bilaterally. Abdomen is soft, no guarding or distention. He has significant swelling to the left foot with a 1+ dorsalis pedis pulse. The foot is warm. There is some mild drainage from the incision site. He has full range of motion. Plan: Labs for preoperative evaluation, admission with podiatry consultation. Labs reviewed, baseline CKD. Discussed with Dr. Villanueva. Requests to start zosyn. Patient admitted to hospitalist service.
[2019-04-13] MEDS ORDERED: Piperacillin/Tazobactam 3.375 GM in Water for inj. (sterile) 20 ML IVP ONE (18:35)
[2019-04-13] MEDS ORDERED: Naloxone 0.4 MG/ML INJ IVP PRN (23:28)
[2019-04-13] MEDS ORDERED: D5% in Water 1,000 ML IVC PRN (23:34)
[2019-04-13] MEDS ORDERED: Dextrose Gel 15 GM/37.5 ML TUBE PO PRN ×2 (23:34)
[2019-04-13] MEDS ORDERED: *HR* Dextrose 50 % in Water (Syg) 50 ML SYRINGE IVP PRN (23:34)
--- NOTE | 2019-04-13 23:48 | Internal Med History&Physical ---
Date of Encounter: 04/14/19 Time of Encounter: 22:00 Internal Medicine - H&P: HPI Chief complaint: Charcot Foot Post Op Complication Admitted From: Home Plans for Post Hospital Care: Home History of present illness: Mr. Vargas is a 49 year old male with past medical history significant for CAD with stents x3, [place], CHF, hypertension, hyperlipidemia, COPD, CKD, GERD, diabetes, and charcot foot who was seen in Podiatry office today for follow up after undergoing surgery for charcot foot of left foot on 03/24/2019. Reports having drainage which he describes as thin and pink from surgical site over past week with increased swelling getting increasingly worse. Has been keeping site dressed daily as instructed by Podiatry and reportedly has been saturating dressings with drainage. Was seen in Podiatry office four days ago and followed up again today and advised to come to ER for admission and Podiatry will see in consult. Has been non weight bearing since surgery and denies any other changes than those described above. Podiatry requested ER start patient on Zosyn and make NPO at midnight for plans to go to OR tomorrow. Patient currently denies any headache, numbness, tingling, chest pain, shortness of breath, cough, abdominal pain, nausea, bowel or bladder changes. Patient also reports following with his PCP regularly in addition to Podiatry. Reports checking blood sugars regularly at home and they have been averaging in the 130's. Past Med Surg Social Fam HX - Past Medical History Medical history: CHF, COPD, coronary artery disease, diabetes, GERD, hyperlipidemia, hypertension, myocardial infarction, renal disease, other Additional medical history: Charcot's joint of L foot, Lisfranc dislocation, ant ithrombotics/antiplatelets, ischemic cardiomyopathy Psychiatric history: no psych history - Past Surgical History Surgical History: angioplasty/stent, orthopedic, other Additional surgical history: left foot surgery, cardiac stents, LHC, L foot I&D - Social History Smoking Status: Former smoker Smokeless Tobacco Status: No Alcohol use: none Drug use: none - Family History Father Family Member Ethnicity: Non- Living Status: Hx Family Cardiac Disorders: Yes (HTN) Hx Family Endocrine Disorder: Yes (DM) Sister Family Member Ethnicity: Non- Living Status: Still Living Hx Family Endocrine Disorder: Yes (DM) Brother Family Member Ethnicity: Non- Living Status: Still Living Hx Family Cardiac Disorders: Yes (ME Age 50) Hx Family Endocrine Disorder: Yes (DM) Mother Family Member Ethnicity: Non- Living Status: Hx Family Cardiac Disorders: Yes (HD) Hx Family Endocrine Disorder: Yes (DM) Internal Medicine - H&P: Meds Clopidogrel [Plavix] 75 mg PO QAM 02/18/19 [History] Furosemide [Lasix] 40 mg PO QAM 02/18/19 [History] Metformin HCl [Fortamet] 1,000 mg PO BID 02/18/19 [History] Metoprolol XL (24 HR) Succ [Toprol Xl] 100 mg PO QAM 02/18/19 [History] amLODIPine [Norvasc] 5 mg PO QAM 02/18/19 [History] Aspirin [Adult Aspirin] 81 mg PO DAILY 03/24/19 [History] Atorvastatin Calcium [Lipitor] 80 mg PO HS 03/24/19 [History] HYDROcodone/Acet 5/325 mg [[place] 5-325 mg] 1 tab PO Q6H PRN 3 Days #12 tab 03/24/19 [Rx] Insulin Aspart Prot/Insuln Asp [Novolog Mix 70-30 Vial] 35 unit SQ BID 03/24/19 [History] Ondansetron ODT [Zofran ODT] 4 mg SL Q8HR PRN #12 tab.rapdis 03/24/19 [Rx] raNITIdine HCl [Zantac] 150 mg PO BID 03/24/19 [History] Amitriptyline [Elavil] 25 mg PO HS 04/13/19 [History] Losartan Potassium [Cozaar] 100 mg PO QAM 04/13/19 [History] 3 Allergy/AdvReac Type Severity Reaction Status Date / Time No Known Allergies Allergy Verified 04/13/19 21:43 All Systems PM: A 10-system review of systems was performed and is negative for pertinent findings except as documented above in the HPI. - Constitutional Vitals: Temp Pulse Resp BP Pulse Ox 98.1 F 69 17 144/71 98 04/13/19 22:44 04/13/19 22:44 04/13/19 22:44 04/13/19 22:44 04/13/19 22:44 Exam: General: Alert and oriented. Skin:Normal color, no rash. Multiple surgical incisions noted to left foot with sutures and derrick, inner incision with small amount of serosanguinous drainage noted. HEENT:Pupils equal, round and reactive. Cardiovascular:Normal S1 & S2, no rubs, murmurs or gallops. No JVD. Pulse regular. Lungs:Normal breath sounds, no wheezes or crackles. Abdomen:Soft, non-tender, no rigidity. Extremities:No deformity, no joint swelling, or clubbing. Swelling noted to left foot, skin as described as above, distal pms intact. Nonpitting edema note d to bilateral lower extremities. Neurological:Normal cognition and motor skills. Pulses:Carotid and radial pulses normal +2. Rest of the physical exam is non contributory. Internal Med - H&P Results - Labs CBC & Chem 7: 04/14/19 00:05 04/14/19 00:05 Labs: Short CBC 04/13/19 Range/Units 17:34 WBC 8.0 (4.3-11.1) K/mcL Hgb 8.5 L (12.9-16.9) g/dL Hct 26.7 L (37.5-50.1) % Plt Count 270 (140-400) K/mcL Neutrophils # 5.7 (1.6-8.9) K/mcL BMP 04/13/19 17:34 Sodium 139 Potassium 4.0 Chloride 106 Carbon Dioxide 23 BUN 27 H Creatinine 1.93 H Glucose 196 H Calcium 8.1 L - Assessment and Plan (1) Post-operative complication Current Visit: Yes Status: Acute Assessment and plan: History of charcot foot and lisfranc dislocation of left foot with surgery on 03/24/2019 for same. Has been having increased swelling and drainage from site over past week. Seen in Podiatry office today and advised to come to ER for admission and will see in consult, consult order placed. Podiatry requested patient be started on Zosyn and placed NPO at midnight, orders placed. Blood cultures ordered. Qualifiers: Surgical complication system/body Area: musculoskeletal system Surgical complication type: unspecified Qualified Code(s): M96.89 - Other intraoperative and postprocedural complications and disorders of the [facility] [place] (2) Charcot foot due to diabetes mellitus Current Visit: Yes Status: Acute Assessment and plan: Plan as stated above. (3) Lisfranc dislocation Current Visit: Yes Status: Acute Assessment and plan: Plan as stated above. Qualifiers: Encounter type: subsequent encounter Laterality: left Qualified Code(s): S93.325D - Dislocation of tarsometatarsal joint of left foot, subsequent encounter (4) Decreased hemoglobin Current Visit: Yes Status: Chronic Assessment and plan: Slightly improved from recent labs but overall decreased from baseline, currently at 8.5 No signs of bleeding besides drainage from incision. Repeat labs ordered. Type and screened in ER. (5) Chronic kidney disease Current Visit: Yes Status: Chronic Assessment and plan: Kidney function near previous labs last month. Avoid nephrotoxins as able. Repeat labs ordered. Qualifiers: Chronic kidney disease stage: unspecified stage Qualified Code(s): N18.9 - Chronic kidney disease, unspecified (6) Diabetes mellitus Current Visit: Yes Status: Chronic Assessment and plan: Hold home diabetic medications. Sliding scale insulin ordered. Accu-Chek's ordered. 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
[2019-04-14 00:18] LABS: Hemoglobin 7.7 g/dL (12.9-16.9); Mean Corpuscular HGB Conc 32.1 g/dL (31.6-35.5); Mean Corpuscular Hemoglobin 28.7 pg (28.0-33.3); Mean Corpuscular Volume 89.6 fL (83.0-100.0); Mean Platelet Volume 11.6 fL (9.4-12.4); Platelet Count 233 K/mcL (140-400); Red Blood Count 2.68 M/mcL (4.19-5.50); Red Cell Distribution Width 14.2 % (11.5-14.5); White Blood Count 6.8 K/mcL (4.3-11.1)
[2019-04-14 00:34] LABS: Calcium 7.9 mg/dL (8.6-10.3); Potassium 3.8 mEq/L (3.5-5.1)
[2019-04-14] MEDS: Insulin LISPRO 300 UNITS/3 ML VIAL SQ SCH ×3 (01:32→12:21)
[2019-04-14] MEDS: Piperacillin/Tazobactam 3.375 GM in 0.9 % Sodium Chloride Mini Bag 100 ML IVPB SCH ×2 (02:31→11:51)
[2019-04-14] MEDS ORDERED: Aspirin Enteric Coated 81 MG Tablet PO SCH (09:00)
[2019-04-14] MEDS ORDERED: Furosemide 40 MG TABLET PO SCH (09:00)
[2019-04-14] MEDS ORDERED: Famotidine 20 MG TABLET PO SCH (09:00)
[2019-04-14] MEDS ORDERED: Metoprolol XL (24 HR) Succ 50 MG TAB.ER.24H PO SCH (09:00)
[2019-04-14] MEDS ORDERED: amLODIPine 5 MG TABLET PO SCH (09:00)
--- NOTE | 2019-04-14 10:20 | Internal Med Progress Note ---
<Carlito Jaime - Last Filed: 04/14/19 16:25> Hospitalist Progress Note - Encounter Date of Encounter: 04/14/19 Time of Encounter: 10:20 - Subjective Interval History: Pt lying in bed upon my arrival. No complaints at this time. Denies chest pain, SOB, trouble breathing, cough, fever, diarrhea, constipation, abdominal pain. - Exam Vitals: Temp Pulse Resp BP Pulse Ox 98.0 F 73 16 147/75 95 04/14/19 06:56 04/14/19 06:56 04/14/19 06:56 04/14/19 06:56 04/14/19 06:56 Exam: Gen: AAOx3, NAD, pleasant CVS: S1, S2, no murmurs Lungs: CTA B/L, symmetric expansion, normal effort Extremities: bandaged left foot. radial pulses normal 2+ b/l, warm and dry skin Psych: answered questions appropriately, good thought process, understood care plan - Assessment and Plan (1) Post-operative complication Current Visit: Yes Status: Acute Assessment and Plan: -Hx of charcot foot & lisfranc fracture of left foot with surgery performed 03/24/19 for the same -Increased swelling and drainage from surgical site over the past week -Was seen in podiatry office 04/14; decision to send to ER to be admitted for podiatry consult; consult placed -Pt started on zosyn & NPO per podiatry -Blood cultures collected -Dressing changes/management per podiatry recommendation -Surgery scheduled for 04/14 -Will follow (2) Charcot foot due to diabetes mellitus Current Visit: Yes Status: Acute Assessment and Plan: Plan as above (3) Chronic kidney disease Current Visit: Yes Status: Chronic Assessment and Plan: -Kidney function similar to previous admissions -Avoid nephrotoxins as able (4) Decreased hemoglobin Current Visit: Yes Status: Chronic Assessment and Plan: -Hgb 7.7; not baseline. -No overt signs of bleeding; drainage from incision present -No symptoms of anemia; denies fatigue, CP, SOB -Pt was type/screened in ER -Will obtain a post-op hemoglobin -Will obtain post-op EKG -Plan for possible infusion packed RBCS -Watch for any new signs of bleeding (5) Diabetes Current Visit: Yes Status: Chronic Assessment and Plan: -Home medications held -Sliding scale insulin -Accu-checks -Maintain tight glycemic control to achieve optimal healing (6) CAD (coronary artery disease) Current Visit: No Status: Chronic Assessment and Plan: -Known history of CAD with stents x 3 -Continue home medications - Time Spent with Patient Total time spent is greater than 50% in coordination of care (as documented) at patient's floor/unit and/or counseling patient: Internal Medicine: Result - Labs CBC & Chem 7: 04/14/19 00:05 04/14/19 00:05 Labs: Short CBC 04/13/19 04/14/19 Range/Units 17:34 00:05 WBC 8.0 6.8 (4.3-11.1) K/mcL Hgb 8.5 L 7.7 L (12.9-16.9) g/dL Hct 26.7 L 24.0 L (37.5-50.1) % Plt Count 270 233 (140-400) K/mcL Neutrophils # 5.7 (1.6-8.9) K/mcL BMP 04/13/19 04/14/19 17:34 00:05 Sodium 139 138 Potassium 4.0 3.8 Chloride 106 105 Carbon Dioxide 23 24 BUN 27 H 29 H Creatinine 1.93 H 2.02 H Glucose 196 H 253 H Calcium 8.1 L 7.9 L - ABG Interpretation ABG results: PT/INR, D-dimer PT 11.5 Seconds (9.4-12.1) 04/13/19 17:34 - Impressions Impressions Chest X-Ray 04/14/19 09:05 IMPRESSION: 1. No active pulmonary disease. 2. Stable cardiomegaly without overt failure. D/ / Young Shelby MD / Young Shelby MD Interpreting Provider: Young Shelby MD Consult Discharge Plan - Plan Referrals: Jose Rafael Morfin, DO [Primary Care Provider] - <Kacey Victor - Last Filed: 04/14/19 16:57> Hospitalist Progress Note - Encounter Date of Encounter: 04/14/19 - Exam Vitals: Temp Pulse Resp BP Pulse Ox 98.0 F 68 18 148/72 98 04/14/19 15:55 04/14/19 15:55 04/14/19 15:55 04/14/19 15:55 04/14/19 15:55 - Assessment and Plan (1) Charcot foot due to diabetes mellitus Current Visit: Yes Status: Acute (2) Lisfranc dislocation Current Visit: Yes Status: Acute (3) Diabetes mellitus Current Visit: Yes Status: Chronic (4) Decreased hemoglobin Current Visit: Yes Status: Chronic (5) Chronic kidney disease Current Visit: Yes Status: Chronic (6) Post-operative complication Current Visit: Yes Status: Acute - Time Spent with Patient Total time spent is greater than 50% in coordination of care (as documented) at patient's floor/unit and/or counseling patient: Internal Medicine: Result - Labs CBC & Chem 7: 04/14/19 00:05 04/14/19 00:05 Labs: Short CBC 04/13/19 04/14/19 Range/Units 17:34 00:05 WBC 8.0 6.8 (4.3-11.1) K/mcL Hgb 8.5 L 7.7 L (12.9-16.9) g/dL Hct 26.7 L 24.0 L (37.5-50.1) % Plt Count 270 233 (140-400) K/mcL Neutrophils # 5.7 (1.6-8.9) K/mcL BMP 04/13/19 04/14/19 17:34 00:05 Sodium 139 138 Potassium 4.0 3.8 Chloride 106 105 Carbon Dioxide 23 24 BUN 27 H 29 H Creatinine 1.93 H 2.02 H Glucose 196 H 253 H Calcium 8.1 L 7.9 L - ABG Interpretation ABG results: PT/INR, D-dimer PT 11.5 Seconds (9.4-12.1) 04/13/19 17:34 - Impressions Impressions Chest X-Ray 04/14/19 09:05 IMPRESSION: 1. No active pulmonary disease. 2. Stable cardiomegaly without overt failure. D/ / Young Shelby MD / Young Shelby MD Interpreting Provider: Young Shelby MD - Attending Attestation The history, physical exam, and medical decision making was performed by the laird hospitalical student either while I was physically present and actively involved or I personally re-performed the exam and medical decision making. I have verified the accuracy of the medical student's documentation with regards to the history, physical exam findings, and medical decision making. Mr Vargas is being observed for suspected post op foot infection requiring surgical intervention awake, no pain, fevers or chills. minimal drainage per pt from dressing. denies any cp, pressure or sob at home with exertion or at rest. gen- alert, awake,appears stated age eyes- pupils equal round , no conjunctival pallor cv- reg rate and rhythm, normal s1,s2, no murmurs appreciated, no le edema lungs- ctabl, no wheezing, rhonchi or crackles, normal resp effort skin- foot dressing left foot with dried serosang appearing drainage, intact neuro- AAOx3 Charcot Foort, Left s/p surgical intervention now with left foot edema and drainage from site, possible wound infection- podiatry following, to OR tonight, cont iV abx, follow cxs Acute on Chronic anemia, asx- podiatry will eval intra op for possible hematoma, obtain post op hgb this evening, if not resulted day shift will sign out to mold shifter to follow, 12 am hgb check ordered as well. already type and screened, transfuse prbc for hgb <7, he does require continuation of his DAPT and we will monitor for any other signs of bleeding CAD hx with stents previously- cont DAPT and home med regimen Pre op risk assessment- RCRI Class IV risk 15% risk 30 d cardiac complication He underwent surgery last month without complication or cardiac work up pre op EKG has no acute ischemic changes and is unchanged from prior BNP is >92 therefore per RCRI risk rec will check post op ekg and daily trop for next 2-3 days, no signs of fluid overload on physical exam or CXR Most recent echo with EF 35-40% mild DD and no pulm htn or sig valve disease also will check serial hgbs post op, as he is not in an acute cardiac event and asx from a cardiac standpoint at home, will transfuse for hgbs <7 pre op home BB given DM- SSI and will adjust dosing as needed, on 70/30 at home and once post op will convert to standng insulin regimen, likely in am vte ppx at this time is scd right leg __ <Carlito Jaime - Last Filed: 04/14/19 16:25> (1) Post-operative complication Qualifiers: Surgical complication type: unspecified (3) Chronic kidney disease Qualifiers: Chronic kidney disease stage: unspecified stage Qualified Code(s): N18.9 - Chronic kidney disease, unspecified (5) Diabetes Qualifiers: Diabetes mellitus type: type 2 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 transplanted heart: [place] heart Associated angina: angina presence unspecified Qualified Code(s): I25.10 - Atherosclerotic heart disease of [place] coronary artery without angina pectoris <Kacey Victor M - Last Filed: 04/14/19 16:57> (2) Lisfranc dislocation Qualifiers: Encounter type: subsequent encounter Laterality: left Qualified Code(s): S93.325D - Dislocation of tarsometatarsal joint of left foot, subsequent encounter (3) Diabetes mellitus Qualifiers: Diabetes mellitus type: type 2 Qualified Code(s): E11.69 - Type 2 diabetes mellitus with other specified complication; Z79.4 - terminal operator (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 (5) Chronic kidney disease Qualifiers: Chronic kidney disease stage: unspecified stage Qualified Code(s): N18.9 - Chronic kidney disease, unspecified (6) Post-operative complication Qualifiers: Surgical complication type: unspecified
--- NOTE | 2019-04-14 11:15 | Podiatry Consult Note ---
Date of Encounter: 04/14/19 Time of Encounter: 10:25 Assessment and Plan (1) Charcot foot due to diabetes mellitus Current visit: Yes Status: Acute Assessment: -Edema and serosang drainage noted left foot -No erythema noted -Sutures and derrick intact -PT/DP pulses per Doppler -WBC 6.8, afebrile Plan: -OR today with Dr. Alvarez for incision and drainage of abscess/hematoma -Remain NPO -Nature of the procedure, risk versus benefits, potential complications, consequences of surgery, and condition discussed. All questions and concerns addressed. Consent signs and placed in chart. -Dressing changed Site flushed with sterile .9 NS and pat dry. Calcium alginate applied to medial aspect surgical wound, all other areas covered with 4x4s, and secured with Kerlix and medipore tape. (2) Diabetes mellitus Current visit: Yes Status: Chronic Assessment: -Blood glucose 253 -Hgb A1c 8.4 on 03/23/2019 Plan: -Tight glycemic control to prevent further complication and promote healing, managed by internal medicine Qualifiers: Diabetes mellitus type: type 2 Qualified Code(s): E11.69 - Type 2 diabetes mellitus with other specified complication; Z79.4 - halfway (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 History of Present Illness HPI: Mr. Vargas is a 49 year old male admitted to the hospital for increase in swelling left foot and drainage. He does have a past medical history that is significant for CAD with stents x3, [place], CHF, hypertension, hyperlipidemia, COPD, CKD, GERD, diabetes, and charcot left foot. Patient underwent surgery on March 24, [address] Alvarez to repair his charcot. He has been following up outpatient in the Podiatry office. He reports an increase in swelling and drainage, which he describes as thin and pink, from the surgical site more so medial aspect over the past week. He has followed instructions and has been changing the dressing and has remained non weight bearing since the surgery. While in the ER he had a CBC and WBC was 8.0. He was started on Zosyn and made NPO at midnight for plans to go to OR today. Patient denies any chest pain, shortness of breath, calf pain, fever, chills, nausea, vomiting, or diarrhea. His Hgb is 7.7 and he denies any headache, lightheadedness, or any vomiting of blood or blood in his stools. Past Med Surg Social Fam HX - Past Medical History Medical history: CHF, COPD, coronary artery disease, diabetes, GERD, hyperlipidemia, hypertension, myocardial infarction, renal disease, other Additional medical history: Charcot's joint of L foot, Lisfranc dislocation, antithrombotics/antiplatelets, ischemic cardiomyopathy Psychiatric history: no psych history - Past Surgical History Surgical History: angioplasty/stent, orthopedic, other Additional surgical history: left foot surgery, cardiac stents, LHC, L foot I&D - Social History Smoking Status: Former smoker Smokeless Tobacco Status: No Alcohol use: none Drug use: none - Family History Father Family Member Ethnicity: Non- Living Status: Hx Family Cardiac Disorders: Yes (HTN) Hx Family Endocrine Disorder: Yes (DM) Sister Family Member Ethnicity: Non- Living Status: Still Living Hx Family Endocrine Disorder: Yes (DM) Brother Family Member Ethnicity: Non- Living Status: Still Living Hx Family Cardiac Disorders: Yes ([place] Age 50) Hx Family Endocrine Disorder: Yes (DM) Mother Family Member Ethnicity: Non- Living Status: Hx Family Cardiac Disorders: Yes (HD) Hx Family Endocrine Disorder: Yes (DM) Medications and Allergies Clopidogrel [Plavix] 75 mg PO QAM 02/18/19 [History] Furosemide [Lasix] 40 mg PO QAM 02/18/19 [History] Metformin HCl [Fortamet] 1,000 mg PO BID 02/18/19 [History] Metoprolol XL (24 HR) Succ [Toprol Xl] 100 mg PO QAM 02/18/19 [History] amLODIPine [Norvasc] 5 mg PO QAM 02/18/19 [History] Aspirin [Adult Aspirin] 81 mg PO DAILY 03/24/19 [History] Atorvastatin Calcium [Lipitor] 80 mg PO HS 03/24/19 [History] HYDROcodone/Acet 5/325 mg [[place] 5-325 mg] 1 tab PO Q6H PRN 3 Days #12 tab 03/24/19 [Rx] Insulin Aspart Prot/Insuln Asp [Novolog Mix 70-30 Vial] 35 unit SQ BID 03/24/19 [History] Ondansetron ODT [Zofran ODT] 4 mg SL Q8HR PRN #12 tab.rapdis 03/24/19 [Rx] raNITIdine HCl [Zantac] 150 mg PO BID 03/24/19 [History] Amitriptyline [Elavil] 25 mg PO HS 04/13/19 [History] Losartan Potassium [Cozaar] 100 mg PO QAM 04/13/19 [History] Allergy/AdvReac Type Severity Reaction Status Date / Time No Known Allergies Allergy Verified 04/13/19 21:43 All Systems Reviewed: The remainder of the systems were reviewed and are negative - Constitutional Additional comments: As per HPI - Cardiovascular Cardiovascular: no chest pain, no dyspnea - Respiratory Respiratory: no dyspnea Physical Exam - Constitutional Vitals: Temp Pulse Resp BP Pulse Ox 98.0 F 73 16 147/75 95 04/14/19 06:56 04/14/19 06:56 04/14/19 06:56 04/14/19 06:56 04/14/19 06:56 Exam: Constitutional: Alert and oriented x 3, well nourished, no acute distress male Vascular: DP/PT pulses bilaterally per Doppler, cap less than 3 seconds, skin warm from tibia to toes, no pain with calf squeeze Neurological: Diminished protective sensation, abnormal proprioception Dermatological: Left foot with edema noted, sutures and derrick intact, serosanguineous drainage noted, no erythema, no lymphangitis Musculoskeletal: Movement of toes noted Results - Labs Result Diagrams: 04/14/19 00:05 04/14/19 00:05 Labs: Abnormal lab results RBC 2.68 M/mcL (4.19-5.50) L 04/14/19 00:05 Hgb 7.7 g/dL (12.9-16.9) L 04/14/19 00:05 Hct 24.0 % (37.5-50.1) L 04/14/19 00:05 BUN 29 mg/dL (6-20) H 04/14/19 00:05 Creatinine 2.02 mg/dL (0.70-1.30) H 04/14/19 00:05 Est GFR ( Amer) 42 (> 60) L 04/14/19 00:05 Est GFR (Non-Af Amer) 35 (> 60) L 04/14/19 00:05 Glucose 253 mg/dL (70-105) H 04/14/19 00:05 POC Glucose 211 mg/dL (70-99) H 04/14/19 05:50 Calcium 7.9 mg/dL (8.6-10.3) L 04/14/19 00:05 B-Natriuretic Peptide 300 pg/mL (Less than 100) H 04/14/19 00:06 H & H 04/13/19 04/14/19 Range/Units 17:34 00:05 Hgb 8.5 L 7.7 L (12.9-16.9) g/dL Hct 26.7 L 24.0 L (37.5-50.1) % All other labs normal. Consult Discharge Plan - Plan Referrals: Jose Rafael Morfin DO [Primary Care Provider] -
--- NOTE | 2019-04-14 18:21 | Anesthesia Evaluation PreOp ---
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 History: Denies Any Significant HX Other Medical History: Renal (CKD stage 3), Diabetes Type II, GERD, Other (obesity BMI=40.3) Anesthesia History: No Prior Anesthetic Complications, Past Anesthesia Alcohol Use: none Drug use: none Medications and Allergies Clopidogrel [Plavix] 75 mg PO QAM 02/18/19 [History] Furosemide [Lasix] 40 mg PO QAM 02/18/19 [History] Metformin HCl [Fortamet] 1,000 mg PO BID 02/18/19 [History] Metoprolol XL (24 HR) Succ [Toprol Xl] 100 mg PO QAM 02/18/19 [History] amLODIPine [Norvasc] 5 mg PO QAM 02/18/19 [History] Aspirin [Adult Aspirin] 81 mg PO DAILY 03/24/19 [History] Atorvastatin Calcium [Lipitor] 80 mg PO HS 03/24/19 [History] HYDROcodone/Acet 5/325 mg [[place] 5-325 mg] 1 tab PO Q6H PRN 3 Days #12 tab 03/24/19 [Rx] Insulin Aspart Prot/Insuln Asp [Novolog Mix 70-30 Vial] 35 unit SQ BID 03/24/19 [History] Ondansetron ODT [Zofran ODT] 4 mg SL Q8HR PRN #12 tab.rapdis 03/24/19 [Rx] raNITIdine HCl [Zantac] 150 mg PO BID 03/24/19 [History] Amitriptyline [Elavil] 25 mg PO HS 04/13/19 [History] Losartan Potassium [Cozaar] 100 mg PO QAM 04/13/19 [History] Allergy/AdvReac Type Severity Reaction Status Date / Time No Known Allergies Allergy Verified 04/13/19 21:43 - Meds/Allergy Pre-op Review Medications Reviewed: Yes Allergies Reviewed: Yes Beta Blockers on Current Med List: Yes If Beta Blockers taken, Date/Time (Last Dose taken): 04/14/2019 at 0954 Anesthesia Results - Labs 04/14/19 00:05 04/14/19 00:05 - Imaging EKG: report reviewed (02/08/2019 SINUS RHYTHM MODERATE INTRAVENTRICULAR CONDUCTION DELAY [110+ ms QRS DURATION]) Additional studies: 10/02/2018 Echo Impressions: LVEF 35-40% with segmental left ventricular systolic dysfunction. Mildly dilated left ventricle. Mild left ventricular diastolic dysfunction. Normal right ventricular structure and function. No significant valvular dysfunction. No evidence of pulmonary hypertension. 01/13/2018 Impressions:CORONARY ANGIOGRAPHY IV Doppler BLD Flow 1st Vessel (LAD) IV Doppler BLD Flow Ad'l Vessel (RCA) Stent w/ PTCA Single Major Vessel (mid LAD ANGELIKA Synergy) Stent w/ PTCA Single Major Vessel (mid RCA ANGELIKA Synergy) Indications: Ischemic Cardiomyopathy, Systolic CHF There is severe three vessel coronary artery disease. Patient had successful PTCA/Drug-Eluting Stent placement in the mid RCA and mid LAD. FFR Measurement: 0.73 (mid RCA), 0.83 (Prox RCA), iFR result 0.71 (Mid LAD) There is a previous stent in Mid Circumflex with severe in-stent stenosis that was not intervened on - HAMMERER, unable to cannulate Recommendations: Plavix (Clopidogrel) 75 mg PO Daily. Optimal medical therapy of patient's disease. Aggressive risk factor modification. 11/10/2015 Limited Echo Impressions: LVEF 30-35%. Severe global and regional LV systolic dysfunction. There is no evidence of left ventricular thrombus. Definity was given. Trivial anterior pericardial effusion. Anesthesia Exam Vital Signs/O2 Sat/Glucose, Most Recent Temp Pulse Resp BP Pulse Ox 98.0 F 68 18 148/72 98 04/14/19 15:55 04/14/19 15:55 04/14/19 15:55 04/14/19 15:55 04/14/19 15:55 Blood Glucose* 174 Height: 5'8''/1.73m Weight: 264 lbs/120.2 kg NPO (# of Hours): 8 Pain Scale: 0 Pain Scale Used: Numeric (1 - 10) - HEENT Pupil (Motor): EOMI Mallampati: III Teeth: Edentulous Oral Opening: Greater than 3 - NURSE ORTHO LOC: Oriented NURSE ORTHO Motor: Normal RUE, Normal LUE, Normal RLE, Normal LLE, Normal Face NURSE ORTHO Sensory: Normal: RUE, LUE, Face, Deficit: RLE, LLE - Cardiac Rhythm: Regular Murmur: None - Pulmonary Breath Sounds: bilateral Clear Respiratory Effort: Symmetrical Anesthesia Assess/Plan ASA Score: 4 Level of consciousness: Cooperative, Oriented, Tranquil Anesthetic Plan: MAC Monitoring Plan: Standard Monitors
[2019-04-14] MEDS ORDERED: Lidocaine -MPF 2% 2 ML VIAL ONE (19:14)
[2019-04-14] MEDS ORDERED: *HR* Propofol 200 MG/20 ML VIAL IVP ONE ×3 (19:14→19:55)
[2019-04-14] MEDS ORDERED: *HR* Midazolam HCl 2 MG/2 ML VIAL ONE (19:15)
--- NOTE | 2019-04-14 19:38 | Operative Note ---
Date of procedure: 04/14/19 Pre-op diagnosis: left foot abscess/hematoma Post-op diagnosis: same Procedure: incision and drainage left foot Implants: none Complications: none Anesthesia: MAC Local Anesthetics: 1% Lidocaine HCL SubQ (cc) Surgeon: Hussein Alvarez Was there an construction management assistant present: No Estimated blood loss (cc): 15 Specimen: left foot culture Condition: stable Disposition: PACU Procedure in Detail: Indications: 49 year wound male with distal medial foot incision wound dehisence. Persistent serosanguinous drainage from this area. Nature of the procedure, risks vs benefits, potential complications and consequences of surgery and condition discussed at length. left foot scrubbed prepped and draped in the usual sterile fashion. no tourniquet was utilized. left foot incision and drainage. Attention was directed to the medial aspect of the left foot where area of wound dehiscence was present. At the dehiscence site st[place] devitalized tissue was present superficially at the ulceration site and was excised. Deep there was no devitalized tissue. Serous drainage was present. The area was probed and incised deep to the fascia and tendons. there was no purulence expressed. There was no hardware exposed or able to be probed during the procedure. The site was irrigated with normal sterile saline which contained vancomycin. Deep cultures were taken and sent to microbiology. There was no purulence expressed during the entire procedure. Iodoform packing was placed inside the wound. Sterile bandaging was then applied consisting of adaptic, 4x4 gauze, kerlix and an NAIMA wrap. The patient tolerated the anesthesia well and escorted to the recovery room with vitals signs stable and vascular status intact to the left foot.
[2019-04-14] MEDS ORDERED: Calcium Gluconate 1,000 MG/10 ML VIAL ONE (20:03)
[2019-04-14] MEDS ORDERED: *HR* Dextrose 50 % in Water (Syg) 50 ML SYRINGE IVP PRN (20:50)
[2019-04-14] MEDS ORDERED: Naloxone 0.4 MG/ML INJ IVP PRN (20:50)
[2019-04-14] MEDS ORDERED: D5% in Water 1,000 ML IVC PRN (20:50)
[2019-04-14] MEDS ORDERED: Dextrose Gel 15 GM/37.5 ML TUBE PO PRN ×2 (20:50)
[2019-04-14] MEDS: Famotidine 20 MG TABLET PO SCH (23:22)
[2019-04-14 23:30] LABS: Hematocrit 25.3 % (37.5-50.1)
[2019-04-15] MEDS ORDERED: Piperacillin/Tazobactam 3.375 GM in 0.9 % Sodium Chloride Mini Bag 100 ML IVPB SCH (03:15)
[2019-04-15 04:10] LABS: Basophils % 0.5 %; Eosinophils # 0.2 K/mcL (0.0-0.6); Eosinophils % 3.7 %; Hematocrit 24.7 % (37.5-50.1); Hemoglobin 7.9 g/dL (12.9-16.9); Immature Granulocytes % 0.8 % (0-4); Lymphocytes # 1.1 K/mcL (0.6-4.6); Lymphocytes % 16.3 %; Mean Corpuscular Hemoglobin 28.9 pg (28.0-33.3); Mean Corpuscular Volume 90.5 fL (83.0-100.0); Mean Platelet Volume 11.7 fL (9.4-12.4); Monocytes # 0.6 K/mcL (0.0-1.3); Monocytes % 8.6 %; Neutrophils # 4.6 K/mcL (1.6-8.9); Platelet Count 212 K/mcL (140-400); Red Blood Count 2.73 M/mcL (4.19-5.50); Red Cell Distribution Width 14.1 % (11.5-14.5); Segmented Neutrophils % 70.1 %; White Blood Count 6.5 K/mcL (4.3-11.1)
[2019-04-15 04:32] LABS: Calcium 7.9 mg/dL (8.6-10.3); Potassium 4.1 mEq/L (3.5-5.1)
[2019-04-15] MEDS: Aspirin Enteric Coated 81 MG Tablet PO SCH (08:20)
[2019-04-15] MEDS: Metoprolol XL (24 HR) Succ 50 MG TAB.ER.24H PO SCH (08:23)
[2019-04-15] MEDS: amLODIPine 5 MG TABLET PO SCH (08:23)
[2019-04-15] MEDS: Famotidine 20 MG TABLET PO SCH (08:23)
[2019-04-15] MEDS: Furosemide 40 MG TABLET PO SCH (08:23)
[2019-04-15] MEDS: Insulin LISPRO 300 UNITS/3 ML VIAL SQ SCH ×3 (08:33→18:01)
[2019-04-15] MEDS ORDERED: Famotidine 20 MG TABLET PO SCH (09:00)
--- NOTE | 2019-04-15 11:49 | Podiatry Progress Note ---
Date of Encounter: 04/15/19 Time of Encounter: 11:25 - Assessment and Plan (1) Charcot foot due to diabetes mellitus Current Visit: Yes Status: Acute Assessment: -Post op day #1 incision and drainage left foot Dr. Alvarez -No complications noted -Pulses per Doppler -WBC 6.5, afebrile -Blood cultures preliminary -Wound cultures were obtained during surgery Plan: -Recommend ID, antibiotic recommendations greatly appreciated -Social Service referral for Home Health dressing changes when discharged -Non-weight bearing left lower extremity -Follow up with Dr. Alvarez in Wound Care, please schedule appointment prior to discharge -Dressing changed Packing removed. Site flushed with sterile .9 NS and pat dry. Packed surgical wound with plain packing. Covered with 4x4's ABD pad, and Kerlix, secured with NAIMA wrap. (2) Diabetes mellitus Current Visit: Yes Status: Chronic Assessment: -Blood glucose 309 -Hgb A1c 8.4 on 03/23/2019 Plan: -Tight glycemic control to prevent further complication and promote healing, managed by internal medicine Qualifiers: Diabetes mellitus type: type 2 Qualified Code(s): E11.69 - Type 2 diabetes mellitus with other specified complication; Z79.4 - FPC (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 Subjective Interval history: Post op day #1 incision and drainage left foot by Dr. Alvarez on 04/14/2019 Patient is alert and oriented, sitting up in bed with no acute distress noted, and well nourished. He denies any chest pain, shortness of breath, or calf pain. Patient denies any fever, chills, nausea, vomiting, or diarrhea. Dressing dry and intact LLE. Objective - Vital Signs Vital Signs: Vital Signs Temp Pulse Resp BP Pulse Ox 04/15/19 06:43 97.6 F 74 16 154/79 96 04/15/19 04:03 97.9 F 68 17 158/76 96 04/14/19 23:55 98.1 F 85 17 138/74 98 04/14/19 22:55 98.0 F 77 19 165/70 99 04/14/19 21:55 98.1 F 73 18 168/70 99 04/14/19 21:26 99 04/14/19 21:25 98.0 F 64 17 162/75 99 04/14/19 20:55 98.1 F 65 17 168/79 98 04/14/19 15:55 98.0 F 68 18 148/72 98 Intake and Output 04/14/19 04/15/19 04/15/19 23:59 07:59 15:59 Intake Total 340 / 440 100 / 100 Output Total Balance 330 / 430 100 / 100 Intake: IV Fluids 100 / 200 100 / 100 Zosyn 3.375 GM In 0.9 % Sodium 100 / 200 100 / 100 Chloride (Mini-Bag +) 100 ML @ 25 mls/hr IVPB Q8H JORDY Rx#: [id number] Oral 240 / 240 Output: Estimated Blood Loss Other: Meal sandwich, pudding Percent of Meal Consumed 100% # Voids 1 1 Weight 120.3 kg Blood Glucose* 184 262 Patient Weight 04/15/19 23:59 Weight 120.3 kg - Exam Exam: Constitutional: Alert and oriented x 3, well nourished, no acute distress male Vascular: DP/PT pulses per Doppler, cap less than 3 seconds, skin warm from tibia to toes, no pain with calf squeeze Neurological: Diminished protective sensation, abnormal proprioception Dermatological: Left foot with edema noted, sutures and derrick removed except derrick noted medial aspect LLE, intact and edges coapting, sutures distal aspect of foot intact, surgical wound medial aspect of left foot open, no drainage noted, no erythema, no lymphangitis, no complications Musculoskeletal: Movement of toes noted - Lab Result Diagrams: 04/15/19 03:58 04/15/19 03:58 Labs: Abnormal lab results RBC 2.73 M/mcL (4.19-5.50) L 04/15/19 03:58 Hgb 7.9 g/dL (12.9-16.9) L 04/15/19 03:58 Hct 24.7 % (37.5-50.1) L 04/15/19 03:58 BUN 23 mg/dL (6-20) H 04/15/19 03:58 Creatinine 1.60 mg/dL (0.70-1.30) H 04/15/19 03:58 Est GFR ( Amer) 56 (> 60) L 04/15/19 03:58 Est GFR (Non-Af Amer) 46 (> 60) L 04/15/19 03:58 Glucose 309 mg/dL (70-105) H 04/15/19 03:58 POC Glucose 184 mg/dL (70-99) H 04/14/19 21:21 Calculated Osmolality 303 (280-300) H 04/15/19 03:58 Calcium 7.9 mg/dL (8.6-10.3) L 04/15/19 03:58 B-Natriuretic Peptide 300 pg/mL (Less than 100) H 04/14/19 00:06 Microbiology, Last 48 Hours 04/13/19 23:59 Blood Culture - Preliminary Peripheral Venipuncture Culture is incubating and being continuously monitored for growth. Final report to follow. 04/13/19 23:58 Blood Culture - Preliminary Peripheral Venipuncture Culture is incubating and being continuously monitored for growth. Final report to follow. Consult Discharge Plan - Plan Referrals: Jose Rafael Morfin DO [Primary Care Provider] -
--- NOTE | 2019-04-15 12:45 | Internal Med Progress Note ---
<Kacey Victor - Last Filed: 04/15/19 15:15> Hospitalist Progress Note - Encounter Date of Encounter: 04/15/19 - Exam Vitals: Temp Pulse Resp BP Pulse Ox 97.6 F 74 16 154/79 96 04/15/19 06:43 04/15/19 06:43 04/15/19 06:43 04/15/19 06:43 04/15/19 06:43 - Assessment and Plan (1) Charcot foot due to diabetes mellitus Current Visit: Yes Status: Acute (2) Lisfranc dislocation Current Visit: Yes Status: Acute (3) Diabetes mellitus Current Visit: Yes Status: Chronic (4) Decreased hemoglobin Current Visit: Yes Status: Chronic (5) Chronic kidney disease Current Visit: Yes Status: Chronic (6) Post-operative complication Current Visit: Yes Status: Acute - Time Spent with Patient Total time spent is greater than 50% in coordination of care (as documented) at patient's floor/unit and/or counseling patient: Internal Medicine: Result - Labs CBC & Chem 7: 04/15/19 03:58 04/15/19 03:58 Labs: Short CBC 04/14/19 04/15/19 Range/Units 22:07 03:58 WBC 6.5 (4.3-11.1) K/mcL Hgb 8.0 L 7.9 L (12.9-16.9) g/dL Hct 25.3 L 24.7 L (37.5-50.1) % Plt Count 212 (140-400) K/mcL Neutrophils # 4.6 (1.6-8.9) K/mcL BMP 04/15/19 03:58 Sodium 139 Potassium 4.1 Chloride 105 Carbon Dioxide 27 BUN 23 H Creatinine 1.60 H Glucose 309 H Calcium 7.9 L Cardiac Enzymes 04/15/19 Range/Units 03:58 Troponin I < 0.03 (< 0.04) ng/mL - ABG Interpretation ABG results: PT/INR, D-dimer PT 11.5 Seconds (9.4-12.1) 04/13/19 17:34 Consult Discharge Plan - Plan Referrals: Jose Rafael Morfin DO [Primary Care Provider] - - Attending Attestation The history, physical exam, and medical decision making was performed by the medical student either while I was physically present and actively involved or I personally re-performed the exam and medical decision making. I have verified the accuracy of the medical student's documentation with regards to the history, physical exam findings, and medical decision making. Mr Vargas requires admission for post op foot infection and hematoma requiring surgical intervention awake, no pain, fevers or chills. + edema in foot, improving somewhat. gen- alert, awake,appears stated age cv- reg rate and rhythm, normal s1,s2, no murmurs appreciated, + non pitting left foot edema lungs- ctabl, no wheezing, rhonchi or crackles, normal resp effort skin- foot dressing left foot dressing c/d/i neuro- AAOx3 Charcot Foot w post op foot abscess and hematoma s/p OR for I&D with podiatry 04/14 -cont IV abx, follow intra op cxs, monitor hgb on home DAPT Acute on Chronic anemia, asx, stable likely 2/2 hematoma as no other evidence of bleeding- can now monitor hgb daily CAD hx with stents previously- cont DAPT and home med regimen DM- SSI and now standing insulin with pharm recommended substitution for his non formulary 70/30 insulin, will cont to adjust as needed vte ppx at this time is scd right leg <Carlito Jaime - Last Filed: 04/15/19 15:35> Hospitalist Progress Note - Encounter Date of Encounter: 04/15/19 Time of Encounter: 09:00 - Subjective Interval History: Pt was sitting up at side of bed eating breakfast upon my arrival, family member in room. Asked the patient how his breakfast was and he did not seem to be a fan. Denied at chest pain, trouble breathing, abdominal pain, constipation, or diarrhea. No complaints at this time. - Exam Vitals: Temp Pulse Resp BP Pulse Ox 97.6 F 74 16 154/79 96 04/15/19 06:43 04/15/19 06:43 04/15/19 06:43 04/15/19 06:43 04/15/19 06:43 Exam: Gen: AAOx3, NAD, pleasant CVS: S1, S2, no murmurs Lungs: CTA B/L, symmetric expansion, normal effort Extremities: bandaged left foot. radial pulses normal 2+ b/l, warm and dry skin Psych: answered questions appropriately, good thought process, understood care plan - Assessment and Plan (1) Post-operative complication Current Visit: Yes Status: Acute Assessment and Plan: -Hx of charcot foot & lisfranc fracture of left foot with surgery performed 03/24/19 for the same -Increased swelling and drainage from surgical site over the past week -Was seen in podiatry office 04/14; decision to send to ER to be admitted for podiatry consult; consult placed -Pt started on zosyn & NPO per podiatry -Blood cultures collected -Dressing changes/management per podiatry recommendation -S/P I&D of left foot 04/14 -Cultures obtained during surgery pending--- tentative d/c 04/16 or 04/17 -Pt states podiatry wants to do wound vac -Podiatry requesting infectious disease consult 04/15 -Continue to monitor (2) Charcot foot due to diabetes mellitus Current Visit: Yes Status: Acute Assessment and Plan: -Plan as above (3) Diabetes Current Visit: Yes Status: Chronic Assessment and Plan: -Home medications held -Accu-checks -Will switch from sliding scale to 7TIDWM Lispro & 15BID Levemir starting 04/16 -Morning CMP -Maintain tight glycemic control for optimal healing (4) Chronic kidney disease Current Visit: Yes Status: Chronic Assessment and Plan: -Kidney function similar to previous admissions -Avoid nephrotoxins as able (5) Decreased hemoglobin Current Visit: Yes Status: Chronic Assessment and Plan: -Hgb 7.7; not baseline. -No overt signs of bleeding; drainage from incision present -No symptoms of anemia; denies fatigue, CP, SOB -Pt was type/screened in ER -Post op hemoglobin 8.0 04/14 -Will recheck CMP in am -Plan for possible infusion packed RBCS -Watch for any new signs of bleeding (6) CAD (coronary artery disease) Current Visit: No Status: Chronic Assessment and Plan: -Known history of CAD stents x 3 -Continue home medications - Time Spent with Patient Total time spent is greater than 50% in coordination of care (as documented) at patient's floor/unit and/or counseling patient: Internal Medicine: Result - Labs CBC & Chem 7: 04/15/19 03:58 04/15/19 03:58 Labs: Short CBC 04/14/19 04/15/19 Range/Units 22:07 03:58 WBC 6.5 (4.3-11.1) K/mcL Hgb 8.0 L 7.9 L (12.9-16.9) g/dL Hct 25.3 L 24.7 L (37.5-50.1) % Plt Count 212 (140-400) K/mcL Neutrophils # 4.6 (1.6-8.9) K/mcL BMP 04/15/19 03:58 Sodium 139 Potassium 4.1 Chloride 105 Carbon Dioxide 27 BUN 23 H Creatinine 1.60 H Glucose 309 H Calcium 7.9 L Cardiac Enzymes 04/15/19 Range/Units 03:58 Troponin I < 0.03 (< 0.04) ng/mL - ABG Interpretation ABG results: PT/INR, D-dimer PT 11.5 Seconds (9.4-12.1) 04/13/19 17:34 <Kacey Victor M - Last Filed: 04/15/19 15:15> (2) Lisfranc dislocation Qualifiers: Encounter type: subsequent encounter Laterality: left Qualified Code(s): S93.325D - Dislocation of tarsometatarsal joint of left foot, subsequent encounter (3) Diabetes mellitus Qualifiers: Diabetes mellitus type: type 2 Qualified Code(s): E11.69 - Type 2 diabetes mellitus with other specified complication; Z79.4 - USP (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 (5) Chronic kidney disease Qualifiers: Chronic kidney disease stage: unspecified stage Qualified Code(s): N18.9 - Chronic kidney disease, unspecified (6) Post-operative complication Qualifiers: Surgical complication type: unspecified <Carlito Jaime - Last Filed: 04/15/19 15:35> (1) Post-operative complication Qualifiers: Surgical complication type: unspecified (3) Diabetes Qualifiers: Diabetes mellitus type: type 2 Diabetes mellitus intermediate manager insulin use: unspecified intermediate manager insulin use status Diabetes mellitus complication status: with other specified complication Qualified Code(s): E11.69 - Type 2 diabetes mellitus with other specified complication (4) Chronic kidney disease Qualifiers: Chronic kidney disease stage: unspecified stage Qualified Code(s): N18.9 - Chronic kidney disease, unspecified (6) CAD (coronary artery disease) Qualifiers: Coronary Disease-Associated Artery/Lesion type: unspecified vessel or lesion type [place] vs. transplanted heart: [place] heart Associated angina: angina presence unspecified Qualified Code(s): I25.10 - Atherosclerotic heart disease of [place] coronary artery without angina pectoris
--- NOTE | 2019-04-15 14:54 | Electrocardiograph Report ---
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
--- NOTE | 2019-04-15 16:14 | Electrocardiograph Report ---
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
[2019-04-15] MEDS: Piperacillin/Tazobactam 3.375 GM in 0.9 % Sodium Chloride Mini Bag 100 ML IVPB SCH (17:54)
[2019-04-15] MEDS ORDERED: Insulin LISPRO 300 UNITS/3 ML VIAL SQ SCH ×2 (21:00)
[2019-04-16] MEDS: Piperacillin/Tazobactam 3.375 GM in 0.9 % Sodium Chloride Mini Bag 100 ML IVPB SCH ×3 (01:56→17:41)
[2019-04-16 02:04] LABS: Basophils % 0.3 %; Eosinophils # 0.2 K/mcL (0.0-0.6); Eosinophils % 3.6 %; Hematocrit 24.5 % (37.5-50.1); Hemoglobin 7.7 g/dL (12.9-16.9); Immature Granulocytes % 0.3 % (0-4); Lymphocytes # 1.2 K/mcL (0.6-4.6); Lymphocytes % 19.3 %; Mean Corpuscular HGB Conc 31.4 g/dL (31.6-35.5); Mean Corpuscular Hemoglobin 28.8 pg (28.0-33.3); Mean Corpuscular Volume 91.8 fL (83.0-100.0); Mean Platelet Volume 12.1 fL (9.4-12.4); Monocytes # 0.6 K/mcL (0.0-1.3); Monocytes % 8.7 %; Neutrophils # 4.3 K/mcL (1.6-8.9); Platelet Count 211 K/mcL (140-400); Red Blood Count 2.67 M/mcL (4.19-5.50); Red Cell Distribution Width 14.3 % (11.5-14.5); Segmented Neutrophils % 67.8 %; White Blood Count 6.3 K/mcL (4.3-11.1)
[2019-04-16 02:20] LABS: Potassium 3.9 mEq/L (3.5-5.1)
[2019-04-16 02:23] LABS: Albumin 3.1 g/dL (3.5-5.7); Bilirubin,Total 0.3 mg/dL (0.3-1.0); Globulin 3.1 g/dL (2.4-3.5); Potassium 3.9 mEq/L (3.5-5.1); Total Protein 6.2 g/dL (6.4-8.9)
[2019-04-16] MEDS ORDERED: Insulin LISPRO 300 UNITS/3 ML VIAL SQ SCH (06:00)
[2019-04-16] MEDS ORDERED: Insulin DETEMIR 100 UNIT/ML X5UNITS SQ SCH (06:00)
[2019-04-16] MEDS: Famotidine 20 MG TABLET PO SCH (08:48)
[2019-04-16] MEDS: amLODIPine 5 MG TABLET PO SCH (08:48)
[2019-04-16] MEDS: Furosemide 40 MG TABLET PO SCH (08:48)
[2019-04-16] MEDS: Aspirin Enteric Coated 81 MG Tablet PO SCH (08:48)
--- NOTE | 2019-04-16 08:48 | Internal Med Progress Note ---
<Kacey Victor - Last Filed: 04/16/19 12:51> Hospitalist Progress Note - Encounter Date of Encounter: 04/16/19 - Exam Vitals: Temp Pulse Resp BP Pulse Ox 98.3 F 73 16 179/85 98 04/16/19 11:49 04/16/19 11:49 04/16/19 11:49 04/16/19 11:49 04/16/19 11:49 - Assessment and Plan (1) Charcot foot due to diabetes mellitus Current Visit: Yes Status: Acute (2) Lisfranc dislocation Current Visit: Yes Status: Acute (3) Diabetes mellitus Current Visit: Yes Status: Chronic (4) Decreased hemoglobin Current Visit: Yes Status: Chronic (5) Chronic kidney disease Current Visit: Yes Status: Chronic (6) Post-operative complication Current Visit: Yes Status: Acute - Time Spent with Patient Total time spent is greater than 50% in coordination of care (as documented) at patient's floor/unit and/or counseling patient: Internal Medicine: Result - Labs CBC & Chem 7: 04/16/19 01:29 04/16/19 01:29 Labs: Short CBC 04/16/19 Range/Units 01:29 WBC 6.3 (4.3-11.1) K/mcL Hgb 7.7 L (12.9-16.9) g/dL Hct 24.5 L (37.5-50.1) % Plt Count 211 (140-400) K/mcL Neutrophils # 4.3 (1.6-8.9) K/mcL BMP 04/16/19 04/16/19 01:29 01:29 Sodium 139 139 Potassium 3.9 3.9 Chloride 104 104 Carbon Dioxide 26 26 BUN 20 20 Creatinine 1.83 H 1.84 H Glucose 233 H 233 H Calcium 8.0 L 8.0 L Cardiac Enzymes 04/16/19 Range/Units 01:29 Troponin I < 0.03 (< 0.04) ng/mL Liver Function 04/16/19 Range/Units 01:29 Total Bilirubin 0.3 (0.3-1.0) mg/dL AST 10 L (13-39) Units/L ALT 9 (7-52) Units/L Alkaline Phosphatase 77 (34-104) Units/L Albumin 3.1 L (3.5-5.7) g/dL - ABG Interpretation ABG results: PT/INR, D-dimer PT 11.5 Seconds (9.4-12.1) 04/13/19 17:34 Consult Discharge Plan - Plan Referrals: Jose Rafael Morfin DO [Primary Care Provider] - - Attending Attestation The history, physical exam, and medical decision making was performed by the medical student either while I was physically present and actively involved or I personally re-performed the exam and medical decision making. I have verified the accuracy of the medical student's documentation with regards to the history, physical exam findings, and medical decision making. Mr Vargas requires admission for post op foot infection and hematoma requiring surgical intervention awake, no pain currently, awaiting wound vac placement, no fever or chills gen- alert, awake,appears stated age cv- reg rate and rhythm, normal s1,s2 lungs- ctabl, no wheezing, rhonchi or crackles, normal resp effort on room air skin- foot dressing left foot dressing c/d/i neuro- AAOx3 Charcot Foot w post op foot abscess and hematoma s/p OR for I&D with podiatry 04/14 -cont IV abx, follow pending intra op cxs, monitor hgb on home DAPT, appreciate ID input Acute on Chronic anemia 2/2 hematoma with suspected post operative blood loss accounting for cont down trend on his home DAPT, asx,and without hemodynamic instability - will cont to follow hgb CAD hx with stents previously- cont DAPT and home med regimen DM- SSI and now standing insulin with pharm recommended substitution for his non formulary 70/30 insulin, will cont to adjust as needed, today will be first full day of treatment CKD,s tage unknown, appears near baseline- cont to monitor, renal dose meds vte ppx at this time is scd right leg <Carlito Jaime - Last Filed: 04/16/19 16:24> Hospitalist Progress Note - Encounter Date of Encounter: 04/16/19 Time of Encounter: 08:48 - Subjective Interval History: Pt was lying in bed with family on my arrival. Denies any chest pain, shortness of breath, constipation, diarrhea. - Exam Vitals: Temp Pulse Resp BP Pulse Ox 98.0 F 74 16 158/70 94 04/16/19 07:30 04/16/19 07:30 04/16/19 07:30 04/16/19 07:30 04/16/19 07:30 Exam: Gen: AAOx3, NAD, pleasant CVS: S1, S2, no murmurs Lungs: CTA B/L, symmetric expansion, normal effort Extremities: bandaged left foot. radial pulses normal 2+ b/l, warm and dry skin Psych: answered questions appropriately, good thought process, understood care plan - Assessment and Plan (1) Post-operative complication Current Visit: Yes Status: Acute Assessment and Plan: -Hx of charcot foot & lisfranc fracture of left foot with surgery performed 03/24 for the same -Increased swelling and drainage from surgical site over the past week -Was seen in podiatry office 04/14; decision to send to ER to be admitted for podiatry consult; consult placed -Pt started on zosyn & NPO per podiatry -Blood cultures collected -Dressing changes/management per podiatry recommendation -S/P I&D of left foot 04/14 -Cultures obtained during surgery pending--- tentative d/c 04/16 or 04/17 -Pt states podiatry wants to do wound vac -ID consulted and seen pt on 04/16--- will continue IV zosyn and add IV vancomycin, cultures still pending -Will need to monitor renal function -Recheck hgb -Continue to monitor (2) Charcot foot due to diabetes mellitus Current Visit: Yes Status: Acute Assessment and Plan: -Plan as above (3) Diabetes Current Visit: Yes Status: Chronic Assessment and Plan: -Home medications held -Accu-checks -Discussed w/pharmacy and switched from sliding scale to 7TIDWM Lispro & 15BID Levemir 04/16 -Morning CMP 04/17; will assess glucose and adjust as needed -Maintain tight glycemic control for optimal healing (4) Chronic kidney disease Current Visit: Yes Status: Chronic Assessment and Plan: -Kidney function similar to previous admissions -Avoid nephrotoxins as able (5) Decreased hemoglobin Current Visit: Yes Status: Chronic Assessment and Plan: -Hgb 7.7 as of 04/16; this is decreased from baseline -Will monitor for any chest pain, SOB, fatigue (6) CAD (coronary artery disease) Current Visit: No Status: Chronic Assessment and Plan: -Known CAD stents x 3 -Continue home meds - Time Spent with Patient Total time spent is greater than 50% in coordination of care (as documented) at patient's floor/unit and/or counseling patient: Internal Medicine: Result - Labs CBC & Chem 7: 04/16/19 01:29 04/16/19 01:29 Labs: Short CBC 04/16/19 Range/Units 01:29 WBC 6.3 (4.3-11.1) K/mcL Hgb 7.7 L (12.9-16.9) g/dL Hct 24.5 L (37.5-50.1) % Plt Count 211 (140-400) K/mcL Neutrophils # 4.3 (1.6-8.9) K/mcL BMP 04/16/19 04/16/19 01:29 01:29 Sodium 139 139 Potassium 3.9 3.9 Chloride 104 104 Carbon Dioxide 26 26 BUN 20 20 Creatinine 1.83 H 1.84 H Glucose 233 H 233 H Calcium 8.0 L 8.0 L Cardiac Enzymes 04/16/19 Range/Units 01:29 Troponin I < 0.03 (< 0.04) ng/mL Liver Function 04/16/19 Range/Units 01:29 Total Bilirubin 0.3 (0.3-1.0) mg/dL AST 10 L (13-39) Units/L ALT 9 (7-52) Units/L Alkaline Phosphatase 77 (34-104) Units/L Albumin 3.1 L (3.5-5.7) g/dL - ABG Interpretation ABG results: PT/INR, D-dimer PT 11.5 Seconds (9.4-12.1) 04/13/19 17:34 <Kacey Victor - Last Filed: 04/16/19 12:51> (2) Lisfranc dislocation Qualifiers: Encounter type: subsequent encounter Laterality: left Qualified Code(s): S93.325D - Dislocation of tarsometatarsal joint of left foot, subsequent encounter (3) Diabetes mellitus Qualifiers: Diabetes mellitus type: type 2 Qualified Code(s): E11.69 - Type 2 diabetes mellitus with other specified complication; 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 (5) Chronic kidney disease Qualifiers: Chronic kidney disease stage: unspecified stage Qualified Code(s): N18.9 - Chronic kidney disease, unspecified (6) Post-operative complication Qualifiers: Surgical complication type: unspecified <Carlito Jaime - Last Filed: 04/16/19 16:24> (1) Post-operative complication Qualifiers: Surgical complication type: unspecified (3) Diabetes Qualifiers: Diabetes mellitus type: type 2 Diabetes mellitus senior care insulin use: unspecified long term care social worker insulin use status Diabetes mellitus complication status: with other specified complication Qualified Code(s): E11.69 - Type 2 diabetes mellitus with other specified complication (4) Chronic kidney disease Qualifiers: Chronic kidney disease stage: unspecified stage Qualified Code(s): N18.9 - Chronic kidney disease, unspecified (6) CAD (coronary artery disease) Qualifiers: Coronary Disease-Associated Artery/Lesion type: unspecified vessel or lesion type [place] vs. transplanted heart: [place] heart Associated angina: angina presence unspecified Qualified Code(s): I25.10 - Atherosclerotic heart disease of [place] coronary artery without angina pectoris
[2019-04-16] MEDS: Insulin DETEMIR 100 UNIT/ML X5UNITS SQ SCH ×2 (08:49→21:06)
[2019-04-16] MEDS: Insulin LISPRO 300 UNITS/3 ML VIAL SQ SCH ×6 (08:49→20:55)
[2019-04-16] MEDS: Metoprolol XL (24 HR) Succ 50 MG TAB.ER.24H PO SCH (08:49)
--- NOTE | 2019-04-16 08:56 | Infectious Disease Consult ---
Infectious Disease-Consult - Encounter Date/Time Date of Encounter: 04/16/19 - Data of Consult Patient: new to practice Reason for consult: "Recommendationas on antibiotic coverage at the request of podiatry" Consult date: 04/16/19 Requesting Physician: Kacey Victor Primary Care Provider: Jose Rafael Morfin - [facility] HPI: Mr. Vargas is a 49 year old male with a past medical history of DM, CAD status post stents x 3, CHF, COPD, [place], CKD, HTN, HLD, and Charcot arthropathy of the left foot. The patient was admitted to the hospital 04/13/19 for Charcot and diabetes. We are consulted 04/16/19 for further workup and treatment re commendations for left foot infection. Briefly, the patient is 49-year-old male with a past medical history as stated above. Back in Jan, the patient was diagnosed with a Lisfranc dislocation with progressive worsening. He was taken to the operating room 02/18/19 and underwent a left Lisfranc ORIF with a left external fixator application by Dr. Villanueva., He developed some drainage and was started on a seven-day course of oral Levaquin on 03/04. He was then placed on a 10 day course of oral Levaquin on 03/12 followed by an additional 7 days of oral Levaquin on 03/19. He was taken back to the operating room 03/24/19 and underwent a fusion of multi tarsal joints with osteotomy, gastroc recession, plantars tendon lengthening, and removal of external fixator by Dr. Villanueva. Postop, he again developed some serous drainage and was evaluated in the emergency department on 04/06. He was seen in the office by Dr. Villanueva on 04/09 and advised to continue taking oral Levaquin. He was seen again on 04/13 and advised to go to the ER for admission. Upon arrival, he was afebrile and hemodynamically stable. His white blood cell count was normal. Renal function was at baseline for his chronic kidney disease. Blood cultures were obtained 2 sets are no growth to date. He was started empirically on IV Zosyn and was admitted to the hospital for further evaluation. Since admission, the patient has remained afebrile hemodynamically stable. He had a preop chest x-ray that was negative. Podiatry was consulted and he was taken to the operating room 04/14/19 where he underwent an I&D of the left foot. Intraoperative cultures are pending, but are no growth and the Gram stain is negative. Currently, the patient is on IV Zosyn. We have been asked to evaluate and make further recommendations. During my exam today, the patient endorses the history as stated above. He denies fevers, chills, rigors. Denies chest pain, shortness of breath, or cough. Denies nausea, vomiting, diarrhea, or constipation. Denies abdominal pain or urinary complaints. Denies oral thrush or skin rashes. States the pain in his left foot was unchanged. States there was a fair amount of serosanguineous drainage as well as the foot was warm to touch. He denies any worsening edema or any erythema. He denies any trauma or injury to the foot since surgery. He does have dogs and cats at home, but denies any bites or scratches. The patient lives at home with his . 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 He denies tobacco, alcohol, or illicit drug use. Denies recent travel outside the [facility]. Denies exposure to water except bathing or showering. - ROS Review of Systems: All systems reviewed and no additional remarkable complaints except as stated. - Results CBC & Chem 7: 04/17/19 02:55 04/17/19 02:55 - Exam Vitals: Temp Pulse Resp BP Pulse Ox 98.0 F 74 16 158/70 94 04/16/19 07:30 04/16/19 07:30 04/16/19 07:30 04/16/19 07:30 04/16/19 07:30 Exam: Head: Atraumatic, normal inspection, normocephalic. Eye: EOMI, PERRLA, no scleral icterus noted. ENT: Mucous membranes moist. No odontogenic infection noted. Neck: Normal inspection, no meningismus. Respiratory: Clear to auscultation. No rales, respiratory distress, rhonchi, or wheezes noted. Cardiovascular: Regular rate and rhythm, S1 and S2 audible. No murmurs, rubs, or gallops. GI: Soft, obese, normal bowel sounds. Nontender. Extremities:No joint swelling, pedal edema, or tenderness noted. Several superficial scabbed lesions noted to the right lower extremity in various stages of healing. Left foot dressing/splint clean, dry, and intact. Diminished sensation noted to the bilateral lower extremities. Back: Normal inspection. No vertebral tenderness noted. Neurological: Alert, oriented 3, no focal deficits. Psychiatric: normal affect, normal mood. Skin: Dry, intact, warm. Normal color. No rashes. Clopidogrel [Plavix] 75 mg PO QAM 02/18/19 [History] Furosemide [Lasix] 40 mg PO QAM 02/18/19 [History] Metformin HCl [Fortamet] 1,000 mg PO BID 02/18/19 [History] Metoprolol XL (24 HR) Succ [Toprol Xl] 100 mg PO QAM 02/18/19 [History] amLODIPine [Norvasc] 5 mg PO QAM 02/18/19 [History] Aspirin [Adult Aspirin] 81 mg PO DAILY 03/24/19 [History] Atorvastatin Calcium [Lipitor] 80 mg PO HS 03/24/19 [History] HYDROcodone/Acet 5/325 mg [[place] 5-325 mg] 1 tab PO Q6H PRN 3 Days #12 tab 03/24/19 [Rx] Insulin Aspart Prot/Insuln Asp [Novolog Mix 70-30 Vial] 35 unit SQ BID 03/24/19 [History] Ondansetron ODT [Zofran ODT] 4 mg SL Q8HR PRN #12 tab.rapdis 03/24/19 [Rx] raNITIdine HCl [Zantac] 150 mg PO BID 03/24/19 [History] Amitriptyline [Elavil] 25 mg PO HS 04/13/19 [History] Losartan Potassium [Cozaar] 100 mg PO QAM 04/13/19 [History] Allergy/AdvReac Type Severity Reaction Status Date / Time No Known Allergies Allergy Verified 04/13/19 21:43 - Assessment and Plan (1) Cellulitis and abscess of left leg Current Visit: No Status: Acute Location: Left foot. Causative organism: Unclear. Likely secondary to recent surgical procedure. Failed outpatient oral antibiotic therapy. Has received multiple courses of oral Levaquin since 03/04/19 with last dose on 04/12/19. Podiatry consult. Status post I&D 04/14/19. Discussed intraoperative findings with Dr. Villanueva he states that there is serosanguineous drainage but not pus Intra-Op and there is some devitalized tissue around the wound, but deep tissue did not appear to be affected. Currently on IV Zosyn. SNOMED Code(s): 883983757 (2) GERD (gastroesophageal reflux disease) Current Visit: No Status: Chronic Qualifiers: Esophagitis presence: esophagitis presence not specified Qualified Code(s): K21.9 - Gastro-esophageal reflux disease without esophagitis SNOMED Code(s): 861248342 (3) HLD (hyperlipidemia) Current Visit: No Status: Chronic Qualifiers: Hyperlipidemia type: mixed hyperlipidemia Qualified Code(s): E78.2 - Mixed hyperlipidemia SNOMED Code(s): 24445223 (4) HTN (hypertension) Current Visit: No Status: Chronic Qualifiers: Hypertension type: essential hypertension Qualified Code(s): I10 - Essential (primary) hypertension SNOMED Code(s): 90022265 (5) CAD (coronary artery disease) Current Visit: No Status: Chronic Qualifiers: Coronary Disease-Associated Artery/Lesion type: unspecified vessel or lesion type [place] vs. transplanted heart: [place] heart Associated angina: angina presence unspecified Qualified Code(s): I25.10 - Atherosclerotic heart disease of [place] coronary artery without angina pectoris SNOMED Code(s): 18777674 (6) CHF (congestive heart failure) Current Visit: No Status: Chronic SNOMED Code(s): 85757919 (7) Charcot foot due to diabetes mellitus Current Visit: Yes Status: Acute Status post fusion of multiple tarsal joints with osteotomy, gastroc recession, plantars tendon lengthening, and removal of external fixator 03/24/[address] Villanueva. SNOMED Code(s): 034435665, 759818422, 043584623 (8) Lisfranc dislocation Current Visit: Yes Status: Acute Etiology: Unclear. Status post left Lisfranc ORIF with left external fixator application 02/18/[address] Villanueva. Qualifiers: Encounter type: subsequent encounter Laterality: left Qualified Code(s): S93.325D - Dislocation of tarsometatarsal joint of left foot, subsequent encou nter SNOMED Code(s): 612378799 (9) Diabetes mellitus Current Visit: Yes Status: Chronic Recommend aggressive glucose monitoring and controlled when feeling a prevent reinfection. Management per the primary team. 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 Avoid nephrotoxins as able. Qualifiers: Chronic kidney disease stage: unspecified stage Qualified Code(s): N18.9 - Chronic kidney disease, unspecified SNOMED Code(s): 999889676 - Recommendations Recommendations: Check ESR and CRP. Await intra-op cultures to finalize. Unfortunately, the patient had received multiple courses of oral Levaquin prior to admission (last dose 04/12/19) so I am worried that this will skew the culture results. Wound care and activity restrictions per the Podiatry team. Continue Zosyn 3.375 grams IV Q8H. Duration of treatment depends on the clinical picture. Monitor renal function and for drug toxicity and dose-adjust antibiotics. Past Med Surg Social Fam HX - Past Medical History Attestation: Yes The following information was validated with the patient. Source: patient, old records reviewed, nursing notes reviewed Medical history: CHF, COPD, coronary artery disease, diabetes, GERD, hyperlipidemia, hypertension, myocardial infarction, renal disease, other Additional medical history: Charcot's joint of L foot, Lisfranc dislocation, antithrombotics/antiplatelets, ischemic cardiomyopathy Psychiatric history: no psych history - Past Surgical History Surgical History: angioplasty/stent, orthopedic, other Additional surgical history: left foot surgery, cardiac stents, LHC, L foot I&D - Social History Smoking Status: Former smoker Smokeless Tobacco Status: No Alcohol use: none Drug use: none Occupational status: employed Current living situation: Home, With Family Activity Level: Independent ambulation Recent Out of Country Travel Within the Last 8 Weeks: No Exposure or Possible Exposure to Illness During Travel: No - Family History Father Family Member Ethnicity: Non- Living Status: Hx Family Cardiac Disorders: Yes (HTN) Hx Family Endocrine Disorder: Yes (DM) Sister Family Member Ethnicity: Non- Living Status: Still Living Hx Family Endocrine Disorder: Yes (DM) Brother Family Member Ethnicity: Non- Living Status: Still Living Hx Family Cardiac Disorders: Yes ([place] Age 50) Hx Family Endocrine Disorder: Yes (DM) Mother Family Member Ethnicity: Non- Living Status: Hx Family Cardiac Disorders: Yes (HD) Hx Family Endocrine Disorder: Yes (DM) Consult Discharge Plan - Plan Referrals: Jose Rafael Morfin DO [Primary Care Provider] - - Attending Attestation I have personally performed a face to face evaluation on this patient. I have reviewed and agree with the care plan. History and Exam by me shows: This is an addendum to original report dictated by Елена Villalba NP. Please refer to Елена's note for full details. I agree with above HPI, ROS and PE findings. Assessment and Plan: Cellulitis and abscess of the left leg: organism unclear. cultures pending. s/p I&D 04/14/19. patient currently on zosyn. No MRSA on cultures yet. for now we will continue zosyn. If cultures positive for MRSA we will add vanc, but we wont start it empirically since patient with DM and multiple comorbidities and concern for kidney damage. will tailor antibiotics once cultures finalize duration of treatment depends on clinical picture but podiatry are not concerned for osteomyelitis so treatment course is likely 2 week? monitor labs and for drug toxicity
[2019-04-16] MEDS ORDERED: D5% in Water 1,000 ML IVC PRN (11:57)
[2019-04-16] MEDS ORDERED: Acetaminophen 325 MG TABLET PO PRN (12:06)
--- NOTE | 2019-04-16 13:30 | Podiatry Progress Note ---
Date of Encounter: 04/16/19 Time of Encounter: 11:10 - Assessment and Plan (1) Charcot foot due to diabetes mellitus Current Visit: Yes Status: Acute Assessment: -Post op day #2 incision and drainage left foot Dr. Alvarez -Serosanguineous drainage noted -Pulses per Doppler -WBC 6.3, afebrile -Blood cultures preliminary -Surgical wound cultures preliminary Plan: -ID onboard, antibiotic recommendations greatly appreciated -Will continue to monitor -Wound vac dressing changes Friday, Friday, and Friday -Social Service referral for Home Health wound vac changes Friday and -Non-weight bearing left lower extremity -Follow up with Dr. Alvarez in Wound Care, please schedule appointment prior to discharge -Dressing changed and wound vac applied Packing removed, site flushed with .9 NS and pat dry. Wound vac placed with black foam to medial aspect left foot, draped with tegaderm in usual fashion with window-pane dressing. Surgical wound with dehiscence plantar aspect cleaned and bridge painter helper with betadine, and covered with 4x4's. 4x4's aapplied. Covered LLE with Kerlix and NAIMA. ABD pads used to offload tubing to lateral aspect of LLE. Tubing offset to prevent further complications. Good seal noted and suction was continued at 125 mmHG setting. (2) Diabetes mellitus Current Visit: Yes Status: Chronic Assessment: -Blood glucose 233 -Hgb A1c 8.4 on 03/23/2019 Plan: -Tight glycemic control to prevent further complication and promote healing, managed by internal medicine Qualifiers: Diabetes mellitus type: type 2 Qualified Code(s): E11.69 - Type 2 diabetes mellitus with other specified complication; Z79.4 - [facility]iary (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 Subjective Interval history: Post op day #2 incision and drainage left foot by Dr. Alvarez on 04/14/2019 Patient is alert and oriented, sitting up in bed with no acute distress noted, and well nourished. He denies any chest pain, shortness of breath, or calf pain. Patient denies any fever, chills, nausea, vomiting, or diarrhea. Dressing dry and intact LLE. Objective - Vital Signs Vital Signs: Vital Signs Temp Pulse Resp BP Pulse Ox 04/16/19 11:49 98.3 F 73 16 179/85 98 04/16/19 07:30 98.0 F 74 16 158/70 94 04/16/19 03:31 98.5 F 70 16 143/64 94 04/15/19 22:40 98.5 F 74 16 148/72 93 04/15/19 20:55 97 04/15/19 19:52 162/70 04/15/19 19:35 98.7 F 69 18 170/78 97 04/15/19 14:00 78 18 152/76 97 Intake and Output 04/15/19 04/16/19 04/16/19 23:59 07:59 15:59 Intake Total 100 / 440 100 / 780 680 / 780 Output Total 0 / 0 Balance 100 / 440 100 / 780 680 / 780 Intake: IV Fluids 100 / 200 100 / 100 Zosyn 3.375 GM In 0.9 % Sodium 100 / 100 100 / 100 Chloride (Mini-Bag +) 100 ML @ 25 mls/hr IVPB Q8H JORDY Rx#: [id number] Oral 0 / 680 680 / 680 Output: Urine 0 / 0 Other: Meal Lunch Percent of Meal Consumed 100% # Voids 2 2 Weight 120.5 kg Blood Glucose* 237 277 393 Patient Weight 04/16/19 23:59 Weight 120.5 kg - Exam Exam: Constitutional: Alert and oriented x 3, well nourished, no acute distress male Vascular: DP/PT pulses per Doppler, cap less than 3 seconds, skin warm from tibia to toes, no pain with calf squeeze Neurological: Diminished protective sensation, abnormal proprioception Dermatological: Left foot with edema noted, sutures and derrick removed except derrick noted medial aspect LLE, intact and edges coapting, sutures distal aspect of foot intact, surgical wound medial aspect of left foot open, serosanguineous drainage noted and strike through noted on Kerlix, no erythema, no lymphangitis, surgical wound to plantar aspect of left forefoot medial aspect with dehiscence noted Musculoskeletal: Movement of toes noted - Lab Result Diagrams: 04/16/19 01:29 04/16/19 01:29 Labs: Abnormal lab results RBC 2.67 M/mcL (4.19-5.50) L 04/16/19 01:29 Hgb 7.7 g/dL (12.9-16.9) L 04/16/19 01:29 Hct 24.5 % (37.5-50.1) L 04/16/19 01:29 MCHC 31.4 g/dL (31.6-35.5) L 04/16/19 01:29 BUN 23 mg/dL (6-20) H 04/15/19 03:58 Creatinine 1.83 mg/dL (0.70-1.30) H 04/16/19 01:29 Creatinine 1.84 mg/dL (0.70-1.30) H 04/16/19 01:29 Est GFR ( Amer) 47 (> 60) L 04/16/19 01:29 Est GFR ( Amer) 48 (> 60) L 04/16/19 01:29 Est GFR (Non-Af Amer) 39 (> 60) L 04/16/19 01:29 Est GFR (Non-Af Amer) 39 (> 60) L 04/16/19 01:29 Glucose 233 mg/dL (70-105) H 04/16/19 01:29 Glucose 233 mg/dL (70-105) H 04/16/19 01:29 POC Glucose 393 mg/dL (70-99) H 04/16/19 11:45 Calculated Osmolality 303 (280-300) H 04/15/19 03:58 Calcium 8.0 mg/dL (8.6-10.3) L 04/16/19 01:29 Calcium 8.0 mg/dL (8.6-10.3) L 04/16/19 01:29 AST 10 Units/L (13-39) L 04/16/19 01:29 B-Natriuretic Peptide 300 pg/mL (Less than 100) H 04/14/19 00:06 Serum Total Protein 6.2 g/dL (6.4-8.9) L 04/16/19 01:29 Albumin 3.1 g/dL (3.5-5.7) L 04/16/19 01:29 Albumin/Globulin Ratio 1.0 (1.1-2.2) L 04/16/19 01:29 Microbiology, Last 48 Hours 04/14/19 20:11 Wound Culture - Preliminary Left Foot 04/14/19 20:11 Anaerobic Culture - Preliminary Left Foot Culture is incubating. Consult Discharge Plan - Plan Referrals: Jose Rafael Morfin DO [Primary Care Provider] -
[2019-04-16] MEDS: Sucralfate 1 GM TABLET PO PRN (16:23)
[2019-04-16 18:04] LABS: Hematocrit 26.4 % (37.5-50.1); Hemoglobin 8.2 g/dL (12.9-16.9)
[2019-04-17] MEDS: Piperacillin/Tazobactam 3.375 GM in 0.9 % Sodium Chloride Mini Bag 100 ML IVPB SCH ×3 (02:50→17:34)
[2019-04-17 03:04] LABS: Basophils % 0.4 %; Eosinophils # 0.3 K/mcL (0.0-0.6); Eosinophils % 3.5 %; Hematocrit 24.3 % (37.5-50.1); Hemoglobin 7.8 g/dL (12.9-16.9); Immature Granulocytes % 0.4 % (0-4); Lymphocytes # 1.4 K/mcL (0.6-4.6); Lymphocytes % 18.7 %; Mean Corpuscular HGB Conc 32.1 g/dL (31.6-35.5); Mean Corpuscular Hemoglobin 28.8 pg (28.0-33.3); Mean Corpuscular Volume 89.7 fL (83.0-100.0); Mean Platelet Volume 11.3 fL (9.4-12.4); Monocytes # 0.6 K/mcL (0.0-1.3); Monocytes % 7.8 %; Platelet Count 196 K/mcL (140-400); Red Blood Count 2.71 M/mcL (4.19-5.50); Red Cell Distribution Width 14.1 % (11.5-14.5); Segmented Neutrophils % 69.2 %; White Blood Count 7.2 K/mcL (4.3-11.1)
[2019-04-17 03:29] LABS: Calcium 8.1 mg/dL (8.6-10.3); Potassium 3.9 mEq/L (3.5-5.1)
--- NOTE | 2019-04-17 07:54 | Internal Med Progress Note ---
<Kacey Victor - Last Filed: 04/17/19 11:42> Hospitalist Progress Note - Encounter Date of Encounter: 04/17/19 - Exam Vitals: Temp Pulse Resp BP Pulse Ox 97.7 F 84 16 157/53 97 04/17/19 11:04 04/17/19 11:04 04/17/19 11:04 04/17/19 11:04 04/17/19 11:04 - Assessment and Plan (1) Charcot foot due to diabetes mellitus Current Visit: Yes Status: Acute (2) Lisfranc dislocation Current Visit: Yes Status: Acute (3) Diabetes mellitus Current Visit: Yes Status: Chronic (4) Decreased hemoglobin Current Visit: Yes Status: Chronic (5) Chronic kidney disease Current Visit: Yes Status: Chronic (6) Post-operative complication Current Visit: Yes Status: Acute - Time Spent with Patient Total time spent is greater than 50% in coordination of care (as documented) at patient's floor/unit and/or counseling patient: Internal Medicine: Result - Labs CBC & Chem 7: 04/17/19 02:55 04/17/19 02:55 Labs: Short CBC 04/16/19 04/17/19 Range/Units 16:48 02:55 WBC 7.2 (4.3-11.1) K/mcL Hgb 8.2 L 7.8 L (12.9-16.9) g/dL Hct 26.4 L 24.3 L (37.5-50.1) % Plt Count 196 (140-400) K/mcL Neutrophils # 5.0 (1.6-8.9) K/mcL BMP 04/17/19 02:55 Sodium 140 Potassium 3.9 Chloride 104 Carbon Dioxide 28 BUN 21 H Creatinine 1.90 H Glucose 183 H Calcium 8.1 L - ABG Interpretation ABG results: PT/INR, D-dimer PT 11.5 Seconds (9.4-12.1) 04/13/19 17:34 Consult Discharge Plan - Plan Referrals: Jose Rafael Morfin DO [Primary Care Provider] - - Attending Attestation I examined this patient and my medical decision-making was reviewed with the Resident Physician Dr Marmolejo. I agree with the documented findings, disposition and treatment plan as described except to the extent set forth below. Mr Vargas requires admission for post op foot infection and hematoma requiring surgical intervention resting, no pain, no fevers or chills at bedside gen- alert, awake,appears stated age cv- reg rate and rhythm, no le edema lungs- normal resp effort on room air skin- foot dressing left foot dressing c/d/i/wound vac neuro- AAOx3 Charcot Foot w post op foot abscess and hematoma s/p OR for I&D with podiatry 04/14 -add Dapto to Zosyn as d/w Dr Holcomb today, wound cx prelim gpc, cont wound vac, awaiting cx finalization -checking baseline CK w dapto initiation, requires statin for CAD Acute on Chronic anemia 2/2 hematoma with suspected post operative blood loss accounting for cont down trend on his home DAPT, asx,and without hemodynamic instability - will cont to follow hgb DM- TID AC insulin, basal + SSI, adjusting daily as needed CKD,stage unknown, appears near baseline- cont to monitor, renal dose meds as needed vte ppx scd <Jorge A Marmolejo - Last Filed: 04/17/19 17:09> Hospitalist Progress Note - Encounter Date of Encounter: 04/17/19 Time of Encounter: 07:54 - Subjective Interval History: No acute events overnight, patient has no complaints this morning. He is aware of plan to wait for cultures to tailor antibiotic regimen before leaving. - Exam Vitals: Temp Pulse Resp BP Pulse Ox 98.7 F 78 16 152/74 96 04/17/19 06:20 04/17/19 06:20 04/17/19 06:20 04/17/19 06:20 04/17/19 06:20 Exam: Gen: AAOx3, NAD, pleasant CVS: S1, S2, regular rate and rhythm, no murmurs Lungs: CTA B/L, symmetric expansion, normal effort Extremities: bandaged left foot with wound VAC in place. radial pulses normal 2+ b/l, warm and dry skin Abdomen obese and soft and nontender with normal bowel sounds present Psych: answered questions appropriately, good thought process, understood care plan - Assessment and Plan (1) Post-operative complication Current Visit: Yes Status: Acute Assessment and Plan: Patient with history of recent surgery to left Charcot foot presented with postop complication of infection I&D performed by podiatry on 04/14, wound VAC in place, patient is on daptomycin and Zosyn, infectious disease following Plan to continue to follow cultures and establish outpatient treatment regimen for discharge (2) CAD (coronary artery disease) Current Visit: No Status: Chronic Assessment and Plan: History of CAD status post PCI, continue dual antiplatelet therapy and statin, beta shira (3) Diabetes mellitus Current Visit: Yes Status: Chronic Assessment and Plan: Diabetic diet, before meals at bedtime Accu-Cheks, 20 twice a day Levemir, 7 units lispro with meals and sliding scale insulin (4) Decreased hemoglobin Current Visit: Yes Status: Chronic Assessment and Plan: Chronic anemia with acute hematoma and postoperative blood loss We are monitoring hemoglobin, patient is not having any hemodynamic instability we will continue to follow and replace when necessary (5) Chronic kidney disease Current Visit: Yes Status: Chronic Assessment and Plan: Patient has history of chronic kidney disease, creatinine currently at baseline, no complications, we will continue to monitor DVT Prophylaxis: Sequential compression devices - Time Spent with Patient Total time spent is greater than 50% in coordination of care (as documented) at patient's floor/unit and/or counseling patient: Internal Medicine: Result - Labs CBC & Chem 7: 04/17/19 02:55 04/17/19 02:55 Labs: Short CBC 04/16/19 04/17/19 Range/Units 16:48 02:55 WBC 7.2 (4.3-11.1) K/mcL Hgb 8.2 L 7.8 L (12.9-16.9) g/dL Hct 26.4 L 24.3 L (37.5-50.1) % Plt Count 196 (140-400) K/mcL Neutrophils # 5.0 (1.6-8.9) K/mcL BMP 04/17/19 02:55 Sodium 140 Potassium 3.9 Chloride 104 Carbon Dioxide 28 BUN 21 H Creatinine 1.90 H Glucose 183 H Calcium 8.1 L - ABG Interpretation ABG results: PT/INR, D-dimer PT 11.5 Seconds (9.4-12.1) 04/13/19 17:34 <Kacey Victor - Last Filed: 04/17/19 11:42> (2) Lisfranc dislocation Qualifiers: Encounter type: subsequent encounter Laterality: left Qualified Code(s): S93.325D - Dislocation of tarsometatarsal joint of left foot, subsequent encounter (3) Diabetes mellitus Qualifiers: Diabetes mellitus type: type 2 Qualified Code(s): E11.69 - Type 2 diabetes mellitus with other specified complication; Z79.4 - [facility] (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 (5) Chronic kidney disease Qualifiers: Chronic kidney disease stage: unspecified stage Qualified Code(s): N18.9 - Chronic kidney disease, unspecified (6) Post-operative complication Qualifiers: Surgical complication type: unspecified <Jorge A Marmolejo - Last Filed: 04/17/19 17:09> (1) Post-operative complication Qualifiers: Surgical complication type: unspecified (2) CAD (coronary artery disease) Qualifiers: Coronary Disease-Associated Artery/Lesion type: unspecified vessel or lesion type [place] vs. transplanted heart: [place] heart Associated angina: angina presence unspecified Qualified Code(s): I25.10 - Atherosclerotic heart disease of [place] coronary artery without angina pectoris (3) Diabetes mellitus Qualifiers: Diabetes mellitus type: type 2 Qualified Code(s): E11.69 - Type 2 diabetes mellitus with other specified complication; Z79.4 - [facility] (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 (5) Chronic kidney disease Qualifiers: Chronic kidney disease stage: unspecified stage Qualified Code(s): N18.9 - Chronic kidney disease, unspecified
[2019-04-17] MEDS: Famotidine 20 MG TABLET PO SCH (08:13)
[2019-04-17] MEDS: amLODIPine 5 MG TABLET PO SCH (08:14)
[2019-04-17] MEDS: Aspirin Enteric Coated 81 MG Tablet PO SCH (08:14)
[2019-04-17] MEDS: Furosemide 40 MG TABLET PO SCH (08:14)
[2019-04-17] MEDS: Metoprolol XL (24 HR) Succ 50 MG TAB.ER.24H PO SCH (08:14)
[2019-04-17] MEDS: Insulin DETEMIR 100 UNIT/ML X5UNITS SQ SCH ×2 (08:15→20:16)
[2019-04-17] MEDS: Insulin LISPRO 300 UNITS/3 ML VIAL SQ SCH ×7 (08:15→22:24)
[2019-04-17] MEDS ORDERED: DAPTOmycin 500 MG in 0.9 % Sodium Chloride 100 ML IVPB SCH (11:00)
[2019-04-17] MEDS: DAPTOmycin 500 MG in 0.9 % Sodium Chloride 100 ML IVPB SCH (14:30)
[2019-04-17 18:11] LABS: Hematocrit 27.3 % (37.5-50.1); Hemoglobin 8.8 g/dL (12.9-16.9)
[2019-04-18] MEDS: Piperacillin/Tazobactam 3.375 GM in 0.9 % Sodium Chloride Mini Bag 100 ML IVPB SCH ×3 (02:56→17:57)
[2019-04-18 07:19] LABS: Calcium 8.1 mg/dL (8.6-10.3); Potassium 3.7 mEq/L (3.5-5.1)
[2019-04-18] MEDS: Furosemide 40 MG TABLET PO SCH (08:21)
[2019-04-18] MEDS: Aspirin Enteric Coated 81 MG Tablet PO SCH (08:21)
[2019-04-18] MEDS: Famotidine 20 MG TABLET PO SCH (08:21)
[2019-04-18] MEDS: amLODIPine 5 MG TABLET PO SCH (08:21)
[2019-04-18] MEDS: Metoprolol XL (24 HR) Succ 50 MG TAB.ER.24H PO SCH (08:21)
[2019-04-18] MEDS: Insulin LISPRO 300 UNITS/3 ML VIAL SQ SCH ×7 (08:21→21:01)
[2019-04-18] MEDS: Insulin DETEMIR 100 UNIT/ML X5UNITS SQ SCH ×2 (08:23→21:02)
--- NOTE | 2019-04-18 08:41 | Internal Med Progress Note ---
<Kacey Victor - Last Filed: 04/18/19 11:22> Hospitalist Progress Note - Encounter Date of Encounter: 04/18/19 - Exam Vitals: Temp Pulse Resp BP Pulse Ox 98.4 F 69 20 109/62 95 04/18/19 04:26 04/18/19 04:26 04/18/19 04:26 04/18/19 04:26 04/18/19 04:26 - Assessment and Plan (1) Charcot foot due to diabetes mellitus Current Visit: Yes Status: Acute (2) Lisfranc dislocation Current Visit: Yes Status: Acute (3) Diabetes mellitus Current Visit: Yes Status: Chronic (4) Decreased hemoglobin Current Visit: Yes Status: Chronic (5) Chronic kidney disease Current Visit: Yes Status: Chronic (6) Post-operative complication Current Visit: Yes Status: Acute - Time Spent with Patient Total time spent is greater than 50% in coordination of care (as documented) at patient's floor/unit and/or counseling patient: Internal Medicine: Result - Labs CBC & Chem 7: 04/18/19 09:29 04/18/19 06:30 Labs: Short CBC 04/17/19 04/18/19 Range/Units 17:40 09:29 Hgb 8.8 L 8.6 L (12.9-16.9) g/dL Hct 27.3 L 26.9 L (37.5-50.1) % BMP 04/18/19 06:30 Sodium 139 Potassium 3.7 Chloride 102 Carbon Dioxide 28 BUN 26 H Creatinine 2.08 H Glucose 213 H Calcium 8.1 L - ABG Interpretation ABG results: PT/INR, D-dimer PT 11.5 Seconds (9.4-12.1) 04/13/19 17:34 Consult Discharge Plan - Plan Referrals: Jose Rafael Morfin, DO [Primary Care Provider] - - Attending Attestation I examined this patient and my medical decision-making was reviewed with the Resident Physician Dr Marmolejo. I agree with the documented findings, disposition and treatment plan as described except to the extent set forth below. Mr Vargas requires admission for post op foot infection and hematoma requiring surgical intervention awake in chair, no foot pain, n/v, f/c at bedside gen- alert, awake,appears stated age cv- reg rate and rhythm,normal s1s2 lungs- normal resp effort on room air skin- foot dressing left foot dressing c/d/i/wound vac Charcot Foot w post op foot abscess and hematoma - Dapto + Zosyn wound cx prelim gpc, cont wound vac, awaiting cx finalization Acute on Chronic anemia 2/2 hematoma with suspected post operative blood loss accounting for cont down trend on his home DAPT, asx,and without hemodynamic instability - will cont to follow hgb DM- TID AC insulin, basal + SSI, adjusting daily as needed vte ppx scd further dx and plan as noted by resident <Jorge A Marmolejo - Last Filed: 04/18/19 17:18> Hospitalist Progress Note - Encounter Date of Encounter: 04/18/19 Time of Encounter: 08:41 - Subjective Interval History: No acute events overnight. Patient's only complaint this morning is the hospital food. - Exam Vitals: Temp Pulse Resp BP Pulse Ox 98.4 F 69 20 109/62 95 04/18/19 04:26 04/18/19 04:26 04/18/19 04:26 04/18/19 04:26 04/18/19 04:26 Exam: Gen: AAOx3, NAD, pleasant CVS: S1, S2, regular rate and rhythm, no murmurs Lungs: CTA B/L, symmetric expansion, normal effort Extremities: bandaged left foot with wound VAC in place. radial pulses normal 2+ b/l, warm and dry skin Abdomen obese and soft and nontender with normal bowel sounds present Psych: answered questions appropriately, good thought process, understood care plan - Assessment and Plan (1) Post-operative complication Current Visit: Yes Status: Acute Assessment and Plan: Patient with history of recent surgery to left Charcot foot presented with postop complication of infection I&D performed by podiatry on 04/14, wound VAC in place, patient is on daptomycin and Zosyn, infectious disease following Baseline creatinine kinase checked, patient is aware to inform us with any muscle pain Plan to continue to follow cultures and establish outpatient treatment regimen for discharge (2) CAD (coronary artery disease) Current Visit: No Status: Chronic Assessment and Plan: History of CAD status post PCI, continue dual antiplatelet therapy and statin, beta shira (3) Diabetes mellitus Current Visit: Yes Status: Chronic Assessment and Plan: Diabetic diet, before meals at bedtime Accu-Cheks, 20 twice a day Levemir, 7 units lispro with meals and sliding scale insulin (4) Decreased hemoglobin Current Visit: Yes Status: Chronic Assessment and Plan: Chronic anemia with acute hematoma and postoperative blood loss We are monitoring hemoglobin, patient is not having any hemodynamic instability we will continue to follow and replace when necessary (5) Chronic kidney disease Current Visit: Yes Status: Chronic Assessment and Plan: Patient has history of chronic kidney disease, creatinine currently at baseline, no complications, we will continue to monitor DVT Prophylaxis: Sequential compression devices - Time Spent with Patient Total time spent is greater than 50% in coordination of care (as documented) at patient's floor/unit and/or counseling patient: Internal Medicine: Result - Labs CBC & Chem 7: 04/18/19 09:29 04/18/19 06:30 Labs: Short CBC 04/17/19 Range/Units 17:40 Hgb 8.8 L (12.9-16.9) g/dL Hct 27.3 L (37.5-50.1) % BMP 04/18/19 06:30 Sodium 139 Potassium 3.7 Chloride 102 Carbon Dioxide 28 BUN 26 H Creatinine 2.08 H Glucose 213 H Calcium 8.1 L - ABG Interpretation ABG results: PT/INR, D-dimer PT 11.5 Seconds (9.4-12.1) 04/13/19 17:34 <Kacey Victor - Last Filed: 04/18/19 11:22> (2) Lisfranc dislocation Qualifiers: Encounter type: subsequent encounter Laterality: left Qualified Code(s): S93.325D - Dislocation of tarsometatarsal joint of left foot, subsequent encounter (3) Diabetes mellitus Qualifiers: Diabetes mellitus type: type 2 Qualified Code(s): E11.69 - Type 2 diabetes mellitus with other specified complication; Z79.4 - FPC (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 (5) Chronic kidney disease Qualifiers: Chronic kidney disease stage: unspecified stage Qualified Code(s): N18.9 - Chronic kidney disease, unspecified (6) Post-operative complication Qualifiers: Surgical complication type: unspecified <Jorge A Marmolejo - Last Filed: 04/18/19 17:18> (1) Post-operative complication Qualifiers: Surgical complication type: unspecified (2) CAD (coronary artery disease) Qualifiers: Coronary Disease-Associated Artery/Lesion type: unspecified vessel or lesion type [place] vs. transplanted heart: [place] heart Associated angina: angina presence unspecified Qualified Code(s): I25.10 - Atherosclerotic heart disease of [place] coronary artery without angina pectoris (3) Diabetes mellitus Qualifiers: Diabetes mellitus type: type 2 Qualified Code(s): E11.69 - Type 2 diabetes mellitus with other specified complication; Z79.4 - salvage determiner (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 (5) Chronic kidney disease Qualifiers: Chronic kidney disease stage: unspecified stage Qualified Code(s): N18.9 - Chronic kidney disease, unspecified
[2019-04-18 10:12] LABS: Hematocrit 26.9 % (37.5-50.1); Hemoglobin 8.6 g/dL (12.9-16.9)
[2019-04-18] MEDS: DAPTOmycin 500 MG in 0.9 % Sodium Chloride 100 ML IVPB SCH (12:45)
[2019-04-19] MEDS: Piperacillin/Tazobactam 3.375 GM in 0.9 % Sodium Chloride Mini Bag 100 ML IVPB SCH ×2 (01:05→09:46)
[2019-04-19 01:43] LABS: Hematocrit 25.1 % (37.5-50.1); Hemoglobin 7.9 g/dL (12.9-16.9)
[2019-04-19 02:03] LABS: Calcium 7.6 mg/dL (8.6-10.3); Potassium 4.2 mEq/L (3.5-5.1)
[2019-04-19] MEDS: Sucralfate 1 GM TABLET PO PRN (08:21)
[2019-04-19] MEDS: amLODIPine 5 MG TABLET PO SCH (08:21)
[2019-04-19] MEDS: Furosemide 40 MG TABLET PO SCH (08:21)
[2019-04-19] MEDS: Metoprolol XL (24 HR) Succ 50 MG TAB.ER.24H PO SCH (08:21)
[2019-04-19] MEDS: Famotidine 20 MG TABLET PO SCH (08:21)
[2019-04-19] MEDS: Aspirin Enteric Coated 81 MG Tablet PO SCH (08:21)
[2019-04-19] MEDS: Insulin LISPRO 300 UNITS/3 ML VIAL SQ SCH ×7 (08:29→21:00)
[2019-04-19] MEDS: Insulin DETEMIR 100 UNIT/ML X5UNITS SQ SCH (08:29)
--- NOTE | 2019-04-19 08:37 | Internal Med Progress Note ---
<Carlito Jaime - Last Filed: 04/19/19 16:17> Hospitalist Progress Note - Encounter Date of Encounter: 04/19/19 Time of Encounter: 08:37 - Subjective Interval History: Pt was sitting up on side of bed upon my arrival with family member present. States that the breakfast was much better today (estonian toast). He denies any CP, fever, constipation, diarrhea, SOB, or weakness. No events over the weekend. - Exam Vitals: Temp Pulse Resp BP Pulse Ox 98.4 F 67 18 125/60 97 04/19/19 06:33 04/19/19 06:33 04/19/19 06:33 04/19/19 06:33 04/19/19 06:33 Exam: Gen: AAOx3, NAD, pleasant CVS: S1, S2, regular rate and rhythm, no murmurs Lungs: CTA B/L, symmetric expansion, normal effort Extremities: bandaged left foot with wound VAC in place. radial pulses normal 2+ b/l, warm and dry skin Abdomen obese and soft and nontender with normal bowel sounds present Psych: answered questions appropriately, good thought process, understood care plan - Assessment and Plan (1) Post-operative complication Current Visit: Yes Status: Acute Assessment and Plan: Patient with history of recent surgery to left Charcot foot presented with posto p complication of infection I&D performed by podiatry on 04/14, wound VAC in place Zosyn d/c 04/19, ID will continue daptomycin and begin cefipime Baseline creatinine kinase checked, patient is aware to inform us with any muscle pain Establish outpatient therapy options and continue management per ID re commendations We appreciate ID input (2) Charcot foot due to diabetes mellitus Current Visit: Yes Status: Acute (3) Chronic kidney disease Current Visit: Yes Status: Chronic Assessment and Plan: Patient has history of chronic kidney disease Creatinine currently at baseline, no complications Continue to monitor (4) CAD (coronary artery disease) Current Visit: No Status: Chronic Assessment and Plan: History of CAD w PCI, continue dapt , statin, beta shira (5) Decreased hemoglobin Current Visit: Yes Status: Chronic Assessment and Plan: Chronic anemia with acute hematoma and postoperative blood loss We are monitoring hemoglobin, patient is not having any hemodynamic instability --hgb 7.9 04/19 we will continue to follow and replace when necessary (6) Diabetes mellitus Current Visit: Yes Status: Chronic Assessment and Plan: Diabetic diet, before meals at bedtime Accu-Cheks, blood sugars not controlled with 20unit SQBIG of Levemir & 7 units SQ TIDWM of Humalog will titrate insulin up to 25 units SQBID of Levemir, and to 10 units SQ TIDWM of Humalog. Will recheck blood sugars in am. - Time Spent with Patient Total time spent is greater than 50% in coordination of care (as documented) at patient's floor/unit and/or counseling patient: Internal Medicine: Result - Labs CBC & Chem 7: 04/19/19 13:08 04/19/19 01:05 Labs: Short CBC 04/18/19 04/19/19 Range/Units 09:29 01:05 Hgb 8.6 L 7.9 L (12.9-16.9) g/dL Hct 26.9 L 25.1 L (37.5-50.1) % BMP 04/19/19 01:05 Sodium 138 Potassium 4.2 Chloride 103 Carbon Dioxide 26 BUN 26 H Creatinine 2.37 H Glucose 239 H Calcium 7.6 L - ABG Interpretation ABG results: PT/INR, D-dimer PT 11.5 Seconds (9.4-12.1) 04/13/19 17:34 Consult Discharge Plan - Plan Referrals: Jose Rafael Morfin, DO [Primary Care Provider] - Елена Villalba, NETWORK ACCOUNT MANAGER [Advanced Practice Nurse] - 05/04/19 2:40 pm <Kacey Victor - Last Filed: 04/19/19 17:39> Hospitalist Progress Note - Encounter Date of Encounter: 04/19/19 - Exam Vitals: Temp Pulse Resp BP Pulse Ox 97.7 F 81 18 155/75 94 04/19/19 16:33 04/19/19 16:33 04/19/19 16:33 04/19/19 16:33 04/19/19 16:33 - Assessment and Plan (1) Charcot foot due to diabetes mellitus Current Visit: Yes Status: Acute (2) Lisfranc dislocation Current Visit: Yes Status: Acute (3) Diabetes mellitus Current Visit: Yes Status: Chronic (4) Decreased hemoglobin Current Visit: Yes Status: Chronic (5) Chronic kidney disease Current Visit: Yes Status: Chronic (6) Post-operative complication Current Visit: Yes Status: Acute - Time Spent with Patient Total time spent is greater than 50% in coordination of care (as documented) at patient's floor/unit and/or counseling patient: Internal Medicine: Result - Labs CBC & Chem 7: 04/19/19 13:08 04/19/19 01:05 Labs: Short CBC 04/19/19 04/19/19 Range/Units 01:05 13:08 Hgb 7.9 L 9.0 L (12.9-16.9) g/dL Hct 25.1 L 28.6 L (37.5-50.1) % BMP 04/19/19 01:05 Sodium 138 Potassium 4.2 Chloride 103 Carbon Dioxide 26 BUN 26 H Creatinine 2.37 H Glucose 239 H Calcium 7.6 L - ABG Interpretation ABG results: PT/INR, D-dimer PT 11.5 Seconds (9.4-12.1) 04/13/19 17:34 - Attending Attestation The history, physical exam, and medical decision making was performed by the medical student either while I was physically present and actively involved or I personally re-performed the exam and medical decision making. I have verified the accuracy of the medical student's documentation with regards to the history, physical exam findings, and medical decision making. Mr Vargas requires admission for post op foot infection and hematoma requiring surgical intervention awake in bed, no fevers, chills, foot pain or concerns gen- alert, awake,appears stated age cv- reg rate and rhythm,normal s1s2, no pitting le edema lungs- ctabl, normal resp effort on room air skin- foot dressing left foot dressing c/d/i/wound vac is in place Charcot Foot w post op foot abscess and hematoma + VRE - Dapto + Cefepime as per ID recs, will require likely up to 4 weeks, we have begun process of setting up home infusion and wound vac , weekly labs and wound care Acute on Chronic anemia 2/2 hematoma with suspected post operative blood loss accounting for cont down trend on his home DAPT, asx,and without hemodynamic instability - will cont to follow hgb and he will ahve to fu outpt for repeat testing DM- TID AC insulin, increased today basal + SSI, adjusting daily as needed, will require pcp fu on dc CKD, increase today- monitor creat, next check in am to ensure tolerating abx, will require outpt checks will on abx vte ppx scd further dx and plan as noted by student <Carlito Jaime - Last Filed: 04/19/19 16:17> (1) Post-operative complication Qualifiers: Surgical complication type: unspecified (3) Chronic kidney disease Qualifiers: Chronic kidney disease stage: unspecified stage Qualified Code(s): N18.9 - Chronic kidney disease, unspecified (4) CAD (coronary artery disease) Qualifiers: Coronary Disease-Associated Artery/Lesion type: unspecified vessel or lesion type [place] vs. transplanted heart: [place] heart Associated angina: angina presence unspecified Qualified Code(s): I25.10 - Atherosclerotic heart disease of [place] coronary artery without angina pectoris (6) Diabetes mellitus Qualifiers: Diabetes mellitus type: type 2 Qualified Code(s): E11.69 - Type 2 diabetes mellitus with other specified complication; Z79.4 - retirement (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 <Kacey Victor - Last Filed: 04/19/19 17:39> (2) Lisfranc dislocation Qualifiers: Encounter type: subsequent encounter Laterality: left Qualified Code(s): S93.325D - Dislocation of tarsometatarsal joint of left foot, subsequent encounter (3) Diabetes mellitus Qualifiers: Diabetes mellitus type: type 2 Qualified Code(s): E11.69 - Type 2 diabetes mellitus with other specified complication; Z79.4 - manager managed care (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 (5) Chronic kidney disease Qualifiers: Chronic kidney disease stage: unspecified stage Qualified Code(s): N18.9 - Chronic kidney disease, unspecified (6) Post-operative complication Qualifiers: Surgical complication type: unspecified
--- NOTE | 2019-04-19 10:58 | Podiatry Progress Note ---
Date of Encounter: 04/19/19 Time of Encounter: 10:00 - Assessment and Plan (1) Charcot foot due to diabetes mellitus Current Visit: Yes Status: Acute Assessment: -Post op day #5 incision and drainage left foot Dr. Alvarez -Wound vac intact and running- MWF change- -Serosanguineous drainage - 50cc noted -Pulses per Doppler - Surgical culture showing VRE susceptible to linezolid -WBC 7.2 obtained ob on 04/17, no wbc obtained today , afebrile -BC no growth- final Plan: -ID onboard, antibiotic recommendations greatly appreciated - currently on dapto and zosyn however finalized VRE cultures resulted today- PICC in place to right UE. Will be discharged with IV antibiotics per ID recommendation -Will continue to monitor -Wound vac dressing changes Friday, Friday, and Friday - will be discharged with wound vac. -Social Service referral for Home Health wound vac changes Friday and - see wound vac orders. -Non-weight bearing left lower extremity -Follow up with Dr. Alvarez in Wound Care 1 week or less after discharge, please schedule appointment prior to discharge -wound vac removed at bedside Previous sponge removed, site flushed with .9 NS and pat dry. painted all macerated skin with betadine. small black simplace sponge applied to wound bed and tracked to dorsal aspect of foot, skin to dorsal foot draped with tegaderm in usual fashion with window-pane dressing for protection of underlying skin. 4x4 applied to suture line in attempt to dry macerated tissue. Tegaderm draped to sponge and sealed to 125mmHg low cont suction. Good seal noted without leak. Covered LLE with Kerlix and NAIMA. Tubing offset to prevent further complications. Patient notes comfort. no complications. (2) Cellulitis and abscess of left leg Current Visit: No Status: Acute Subjective Interval history: POD #5 incision and drainage left foot by Dr. Alvarez on 04/14/2019 Patient is alert and oriented, sitting up in bed with no acute distress noted, and well nourished. He denies any chest pain, shortness of breath, or calf pain. Patient denies any fever, chills, nausea, vomiting, or diarrhea. Dressing and wound vac intact to LLE. Nurse FREDIS Cardenas called office this AM to report she was told in report that "blockage" alarm was noted to wound vac throughout the weekend. States there is drainage to the tube but she is unsure if there is good suction. Patient denies any discomfort. Pending discharge Objective - Vital Signs Vital Signs: Vital Signs Temp Pulse Resp BP Pulse Ox 04/19/19 06:33 98.4 F 67 18 125/60 97 04/19/19 05:35 98.2 F 70 20 156/80 96 04/18/19 22:27 98.3 F 71 20 149/68 96 04/18/19 19:01 97.9 F 69 20 153/75 96 04/18/19 16:29 97.6 F 64 18 143/79 98 04/18/19 11:39 98.3 F 62 18 134/76 97 Intake and Output 04/18/19 04/19/19 04/19/19 23:59 07:59 15:59 Intake Total 590 / 1030 560 / 1240 680 / 1240 Balance 590 / 1030 560 / 1240 680 / 1240 Intake: IV Fluids 200 / 300 200 / 200 Cubicin 500 MG In 0.9 % Sodium 100 / 100 Chloride 100 ML @ 200 mls/hr IVPB Q24H JORDY Rx#:[id number] Zosyn 3.375 GM In 0.9 % Sodium 200 / 300 100 / 100 Chloride (Mini-Bag +) 100 ML @ 25 mls/hr IVPB Q8H JORDY Rx#: [id number] Oral 390 / 730 560 / 1040 480 / 1040 Other: Meal Breakfast Percent of Meal Consumed 100% # Voids 1 1 Weight 120.7 kg Blood Glucose* 351 221 Patient Weight 04/19/19 23:59 Weight 120.7 kg - Exam Exam: Constitutional: Alert and oriented x 3, well nourished, no acute distress male Vascular: DP/PT pulses per Doppler, cap less than 3 seconds, skin warm from tibia to toes, no pain with calf squeeze Neurological: Diminished protective sensation, abnormal proprioception Dermatological: Left foot with edema noted, sutures and derrick removed except sutures noted medial aspect LLE, intact and edges coapting, there is a moderate amount of maceration to foot likely related to poor suction over the weekend. sutures distal aspect of foot intact, Maceration surrounding sutures noed. [place] rgical wound medial aspect of left foot open, serosanguineous drainage noted and strike through noted on Kerlix, no erythema, no lymphangitis, open surgical wound to plantar aspect of left forefoot medial aspect 50% healthy granulation tissue, 50% yellow fibrous tissue. Musculoskeletal: Movement of toes noted - Lab Result Diagrams: 04/19/19 01:05 04/19/19 01:05 Labs: Abnormal lab results RBC 2.71 M/mcL (4.19-5.50) L 04/17/19 02:55 Hgb 7.9 g/dL (12.9-16.9) L 04/19/19 01:05 Hct 25.1 % (37.5-50.1) L 04/19/19 01:05 MCHC 31.4 g/dL (31.6-35.5) L 04/16/19 01:29 ESR 27 mm/hr (0-10) H 04/17/19 02:55 BUN 26 mg/dL (6-20) H 04/19/19 01:05 Creatinine 2.37 mg/dL (0.70-1.30) H 04/19/19 01:05 Est GFR ( Amer) 35 (> 60) L 04/19/19 01:05 Est GFR (Non-Af Amer) 29 (> 60) L 04/19/19 01:05 Glucose 239 mg/dL (70-105) H 04/19/19 01:05 POC Glucose 351 mg/dL (70-99) H 04/18/19 20:52 Calculated Osmolality 303 (280-300) H 04/15/19 03:58 Calcium 7.6 mg/dL (8.6-10.3) L 04/19/19 01:05 AST 10 Units/L (13-39) L 04/16/19 01:29 Creatine Kinase 29 Units/L (30-223) L 04/17/19 11:30 C-Reactive Protein 26 mg/L (Less than 10) H 04/17/19 02:55 B-Natriuretic Peptide 300 pg/mL (Less than 100) H 04/14/19 00:06 Serum Total Protein 6.2 g/dL (6.4-8.9) L 04/16/19 01:29 Albumin 3.1 g/dL (3.5-5.7) L 04/16/19 01:29 Albumin/Globulin Ratio 1.0 (1.1-2.2) L 04/16/19 01:29 Microbiology, Last 48 Hours 04/14/19 20:11 Wound Culture - 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 Final report. 04/13/19 23:59 Blood Culture - Final Peripheral Venipuncture No growth. Final report. 04/14/19 20:11 Anaerobic Culture - Preliminary Left Foot At this time, no anaerobic growth is present. The culture will be finalized after 5 days of incubation. Consult Discharge Plan - Plan Referrals: Jose Rafael Morfin DO [Primary Care Provider] -
--- NOTE | 2019-04-19 12:41 | Infectious Disease Progress No ---
ID Progress Note Date of Encounter: 04/19/19 Time of Encounter: 12:39 - Subjective Subjective: Patient seen and examined. No acute events overnight. Patient reports minimal pain surgical site. Denies fevers, chills, rigors. Denies chest pain, shortness of breath, or cough. Denies nausea, vomiting, diarrhea, constipation. Denies abdominal pain or urinary complaints. Denies oral thrush or skin rashes. States his last bowel movement was this morning and his appetite is go od. - Objective CBC & Chem 7: 04/20/19 04:49 04/20/19 04:49 - Exam Vitals: Temp Pulse Resp BP Pulse Ox 98.1 F 67 18 128/86 98 04/19/19 11:06 04/19/19 11:06 04/19/19 11:06 04/19/19 11:06 04/19/19 11:06 Exam: Head: Atraumatic, normal inspection, normocephalic. Eye: EOMI, PERRLA, no scleral icterus noted. ENT: Mucous membranes moist. No odontogenic infection noted. Neck: Normal inspection, no meningismus. Respiratory: Clear to auscultation. No rales, respiratory distress, rhonchi, or wheezes noted. Cardiovascular: Regular rate and rhythm, S1 and S2 audible. No murmurs, rubs, or gallops. GI: Soft, obese, normal bowel sounds. Nontender. Extremities:No joint swelling, pedal edema, or tenderness noted. Several superficial scabbed lesions noted to the right lower extremity in various stages of healing. Left foot wound VAC dressing/splint clean, dry, and intact. Diminished sensation noted to the bilateral lower extremities. Neurological: Alert, oriented 3, no focal deficits. Psychiatric: normal affect, normal mood. Skin: Dry, intact, warm. Normal color. No rashes. - Assessment and Plan (1) Cellulitis and abscess of left leg Status: Acute Location: Left foot. Causative organism: VRE. Likely secondary to recent surgical procedure. Failed outpatient oral antibiotic therapy. Has received multiple courses of oral Levaquin since 03/04/19 with last dose on 04/12/19. Podiatry consult. Status post I&D 04/14/19. Discussed intraoperative findings with Dr. Villanueva he states that there is serosanguineous drainage but not pus. Intra-Op and there is some devitalized tissue around the wound, but deep tissue did not appear to be affected. Currently on IV Zosyn and daptomycin. SNOMED Code(s): 915666619 (2) GERD (gastroesophageal reflux disease) Status: Chronic Qualifiers: Esophagitis presence: esophagitis presence not specified Qualified Code(s): K21.9 - Gastro-esophageal reflux disease without esophagitis SNOMED Code(s): 100226135 (3) HLD (hyperlipidemia) Status: Chronic Qualifiers: Hyperlipidemia type: mixed hyperlipidemia Qualified Code(s): E78.2 - Mixed hyperlipidemia SNOMED Code(s): 60924469 (4) HTN (hypertension) Status: Chronic Qualifiers: Hypertension type: essential hypertension Qualified Code(s): I10 - Essential (primary) hypertension SNOMED Code(s): 94374264 (5) CAD (coronary artery disease) Status: Chronic Qualifiers: Coronary Disease-Associated Artery/Lesion type: unspecified vessel or lesion type [place] vs. transplanted heart: [place] heart Associated angina: angina presence unspecified Qualified Code(s): I25.10 - Atherosclerotic heart disease of [place] coronary artery without angina pectoris SNOMED Code(s): 88028572 (6) CHF (congestive heart failure) Status: Chronic SNOMED Code(s): 09377360 (7) Charcot foot due to diabetes mellitus Status: Acute Status post fusion of multiple tarsal joints with osteotomy, gastroc recession, plantars tendon lengthening, and removal of external fixator 03/24/[address] Villanueva. SNOMED Code(s): 957414235, 190733091, 236117841 (8) Lisfranc dislocation Status: Acute Etiology: Unclear. Status post left Lisfranc ORIF with left external fixator application 02/18/[address] Villanueva. Qualifiers: Encounter type: subsequent encounter Laterality: left Qualified Code(s): S93.325D - Dislocation of tarsometatarsal joint of left foot, subsequent encounter SNOMED Code(s): 168752490 (9) Diabetes mellitus Status: Chronic Recommend aggressive glucose monitoring and controlled when feeling a prevent r einfection. Management per the primary team. Qualifiers: Diabetes mellitus type: type 2 Qualified Code(s): E11.69 - Type 2 diabetes mellitus with other specified complication; Z79.4 - manager intermediate (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 SNOMED Code(s): 61037859 (10) Chronic kidney disease Status: Chronic Monitor renal function closely does adjust antibiotics. Avoid nephrotoxins as able. Qualifiers: Chronic kidney disease stage: unspecified stage Qualified Code(s): N18.9 - Chronic kidney disease, unspecified SNOMED Code(s): 467665704 - Recommendations Recommendations: Unfortunately, based on culture susceptibilities, we are limited in the antibiotic selection we have. Podiatry has requested a couple of weeks of IV antibiotics to ensure adequate treatment of infection. Due to bacterial susceptibilities and the fact that the patient takes Elavil on a daily basis, we do not have oral options if/when the IV antibiotics are discontinued. Wound care and activity restrictions per the Podiatry team. Discontinue Zosyn. Start cefepime 2 grams Q12H. Continue Daptomycin 6mg/kg IV daily. (baseline CK 29). CrCl ~32. Duration of treatment depends on the clinical picture, but likely 2-4 weeks. Continue until seen in the ID clinic. Discussed with VAT and patient is okay to go with EPIV in place. Monitor renal function and for drug toxicity and dose-adjust antibiotics. Will need weekly CBC, BUN/Cr, ESR, CRP, and CK level. Will need weekly EPIV care per protocol. Follow up with ID 05/04/19 at 1440. Consult Discharge Plan - Plan Instructions: Diabetes Mellitus Type 2 in Adults (DC) Additional Instructions: Please follow up with infectious disease on 05/04/19 at 2:40 PM. Please follow- up with Dr. Alvarez in wound care in 3-5 days. Wound care recommendations Previous sponge removed, site flushed with .9 NS and pat dry. painted all macerated skin with betadine. small black simplace sponge applied to wound bed and tracked to dorsal aspect of foot, skin to dorsal foot draped with tegaderm in usual fashion with window-pane dressing for protection of underlying skin. 4x4 applied to suture line in attempt to dry macerated tissue. Tegaderm draped to sponge and sealed to 125mmHg low cont suction. Good seal noted without leak. Covered LLE with Kerlix and NAIMA. Tubing offset to prevent further complications. Referrals: Jose Rafael Morfin DO [Primary Care Provider] - Hussein Alvarez DPM [Partnered Physician] - Елена Villalba CNP [Advanced Practice Nurse] - 05/04/19 2:40 pm Prescriptions: Cefepime HCl/D5w [Cefepime-Dextrose 2 gm/50 ml] 2 gm IV Q24H 14 Days #14 mls DAPTOmycin [Daptomycin] 500 mg IV DAILY 14 Days #14 vial Insulin Aspart Prot/Insuln Asp [Novolog Mix 70-30 Vial] 40 unit SQ BID 30 Days #24 vial - Attending Attestation I have personally performed a face to face evaluation on this patient. I have reviewed and agree with the care plan. History and Exam by me shows: Assessment and Plan: Cellulitis and abscess of the left leg: organism unclear. cultures pending. s/p I&D 04/14/19. patient currently on zosyn and dapto VRE positive culture
[2019-04-19 13:27] LABS: Hematocrit 28.6 % (37.5-50.1)
[2019-04-19] MEDS: DAPTOmycin 500 MG in 0.9 % Sodium Chloride 100 ML IVPB SCH (14:18)
[2019-04-19] MEDS ORDERED: Cefepime HCl 2,000 MG in 0.9 % Sodium Chloride Mini Bag 100 ML IVPB SCH (18:00)
[2019-04-19] MEDS ORDERED: Insulin DETEMIR 100 UNIT/ML X5UNITS SQ SCH (21:00)
[2019-04-20 05:08] LABS: Hematocrit 24.8 % (37.5-50.1); Hemoglobin 7.8 g/dL (12.9-16.9)
[2019-04-20 05:33] LABS: Calcium 7.7 mg/dL (8.6-10.3); Potassium 3.9 mEq/L (3.5-5.1)
--- NOTE | 2019-04-20 07:49 | Discharge Summary ---
<Kacey Victor - Last Filed: 04/20/19 12:50> Date of Encounter: 04/20/19 - Discharge Diagnosis (1) Charcot foot due to diabetes mellitus Status: Acute (2) Lisfranc dislocation Status: Acute Qualifiers: Encounter type: subsequent encounter Laterality: left Qualified Code(s): S93.325D - Dislocation of tarsometatarsal joint of left foot, subsequent encou nter (3) Diabetes mellitus Status: Chronic Qualifiers: Diabetes mellitus type: type 2 Qualified Code(s): E11.69 - Type 2 diabetes mellitus with other specified complication; Z79.4 - custodial (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 (4) Decreased hemoglobin Status: Chronic (5) Chronic kidney disease Status: Chronic Qualifiers: Chronic kidney disease stage: unspecified stage Qualified Code(s): N18.9 - Chronic kidney disease, unspecified (6) Post-operative complication Status: Acute Qualifiers: Surgical complication type: unspecified Hospital course: Mr. Vargas is a 49 year old male - Time Spent with Patient Total time spent providing and/or coordinating discharge services: - Discharge Medications Prescriptions: New Cefepime HCl/D5w [Cefepime-Dextrose 2 gm/50 ml] 2 gm IV Q24H 14 Days #14 mls DAPTOmycin [Daptomycin] 500 mg IV DAILY 14 Days #14 vial Continued amLODIPine [Norvasc] 5 mg PO QAM Furosemide [Lasix] 40 mg PO QAM Metformin HCl [Fortamet] 1,000 mg PO BID Metoprolol XL (24 HR) Succ [Toprol Xl] 100 mg PO QAM Clopidogrel [Plavix] 75 mg PO QAM Atorvastatin Calcium [Lipitor] 80 mg PO HS Aspirin [Adult Aspirin] 81 mg PO DAILY raNITIdine HCl [Zantac] 150 mg PO BID HYDROcodone/Acet 5/325 mg [[place] 5-325 mg] 1 tab PO Q6H PRN 3 Days #12 tab PRN Reason: Pain Ondansetron ODT [Zofran ODT] 4 mg SL Q8HR PRN #12 tab.rapdis PRN Reason: Nausea Amitriptyline [Elavil] 25 mg PO HS Losartan Potassium [Cozaar] 100 mg PO QAM Changed Insulin Aspart Prot/Insuln Asp [Novolog Mix 70-30 Vial] 40 unit SQ BID 30 Days #24 vial Home Medications: Clopidogrel [Plavix] 75 mg PO QAM 02/18/19 [History] Furosemide [Lasix] 40 mg PO QAM 02/18/19 [History] Metformin HCl [Fortamet] 1,000 mg PO BID 02/18/19 [History] Metoprolol XL (24 HR) Succ [Toprol Xl] 100 mg PO QAM 02/18/19 [History] amLODIPine [Norvasc] 5 mg PO QAM 02/18/19 [History] Aspirin [Adult Aspirin] 81 mg PO DAILY 03/24/19 [History] Atorvastatin Calcium [Lipitor] 80 mg PO HS 03/24/19 [History] HYDROcodone/Acet 5/325 mg [[place] 5-325 mg] 1 tab PO Q6H PRN 3 Days #12 tab 03/24/19 [Rx] Ondansetron ODT [Zofran ODT] 4 mg SL Q8HR PRN #12 tab.rapdis 03/24/19 [Rx] raNITIdine HCl [Zantac] 150 mg PO BID 03/24/19 [History] Amitriptyline [Elavil] 25 mg PO HS 04/13/19 [History] Losartan Potassium [Cozaar] 100 mg PO QAM 04/13/19 [History] Cefepime HCl/D5w [Cefepime-Dextrose 2 gm/50 ml] 2 gm IV Q24H 14 Days #14 mls 04/20/19 [Rx] DAPTOmycin [Daptomycin] 500 mg IV DAILY 14 Days #14 vial 04/20/19 [Rx] Insulin Aspart Prot/Insuln Asp [Novolog Mix 70-30 Vial] 40 unit SQ BID 30 Days #24 vial 04/20/19 [Rx] Allergies/Adverse Reactions: Allergy/AdvReac Type Severity Reaction Status Date / Time No Known Allergies Allergy Verified 04/13/19 21:43 Date of admission: 04/15/19 15:17 Primary care physician: Jose Rafael Morfin Consults: 04/13/19 17:30 Consult to Podiatry [CONS] Stat Consulting Provider: [facility] Reason for Consult: charcot foot to be taken to surgery tomorrow Call Completed: Yes 04/15/19 15:44 Consult to Infectious Diseases [CONS] Routine Consulting Provider: [facility] Reason for Consult: Recommendationas on antibiotic coverage at the request of podiatry Time Notified: 15:44 Call Completed: Yes - Constitutional Vitals: Temp Pulse Resp BP Pulse Ox 98.0 F 66 16 152/77 98 04/20/19 12:23 04/20/19 12:23 04/20/19 12:23 04/20/19 12:23 04/20/19 12:23 - Patient Status Disposition: Home Health Service Condition: Good - Ambulatory Orders Ambulatory Orders: Basic Metabolic Panel [CHEM] Time Frame: 3 Days, Facility: [facility], Location: Lab Basic Metabolic Panel [CHEM] Time Frame: 1 Week, Facility: [facility], Location: Lab C-Reactive Protein [CHEM] Time Frame: 1 Week, Facility: [facility], Location: Lab Complete Blood Count [HEME] Time Frame: 3 Days, Facility: [facility], Location: Lab Complete Blood Count [HEME] Time Frame: 1 Week, Facility: [facility], Location: Lab Creatine Kinase [CHEM] Time Frame: 1 Week, Facility: [facility], Location: Lab Erythrocyte Sedimentation Rate [HEME] Time Frame: 1 Week, Facility: [facility], Location: Lab - Discharge Instructions Instructions: Diabetes Mellitus Type 2 in Adults (DC) Follow Up With: Jose Rafael Morfin DO [Primary Care Provider] - Елена Villalba CNP [Advanced Practice Nurse] - 05/04/19 2:40 pm Hussein Alvarez DPM [Partnered Physician] - Forms: ED Satisfaction Letter Additional Instructions: Please follow up with infectious disease on 05/04/19 at 2:40 PM. Please follow- up with Dr. Alvarez in wound care in 3-5 days. Wound care recommendations Previous sponge removed, site flushed with .9 NS and pat dry. painted all macerated skin with betadine. small black simplace sponge applied to wound bed and tracked to dorsal aspect of foot, skin to dorsal foot draped with tegaderm in usual fashion with window-pane dressing for protection of underlying skin. 4x4 applied to suture line in attempt to dry macerated tissue. Tegaderm draped to sponge and sealed to 125mmHg low cont suction. Good seal noted without leak. Covered LLE with Kerlix and NAIMA. Tubing offset to prevent further complications. - Attending Attestation I examined this patient and my medical decision-making was reviewed with the Resident Physician Dr Marmolejo. I agree with the documented findings, disposition and treatment plan as described except to the extent set forth below. Mr Vargas was admitted for post op foot infection and hematoma requiring surgical intervention. He is discharging to home in stable condition awake, at bedside, eagerly awaiting dc. no fevers, chills or foot pain. no cp, sob or fatigue. discussed dc plan in detail. aware of abx, lab checks, wound vac and wound care recs. discussed insulin adjustment, glucose check recording and f/u with PCP. Aware of hgb levels being lower than baseline but stable, discussed no need for transfusion, but need for fu of count in upcoming days. all questions answered. he and verbalize very good understanding of dc plan. gen- alert, awake,appears stated age eyes- pupils equal , no conjunctival pallor cv- reg rate and rhythm,normal s1s2, no pitting le edema lungs- ctabl, normal resp effort on room air skin- wamr, dry no pallor skin- foot dressing left foot dressing c/d/i/wound vac is in place Charcot Foot w post op foot abscess and hematoma + VRE- podiatry and ID follow up, wound vac/wound care, cont IV abx/lab checks Acute on Chronic anemia 2/2 hematoma with suspected post operative blood loss accounting for cont down trend on his home DAPT, varied 7.7-8.8 entire admit (suspect 9 was an isolated outlier), asx and hemodynamically stable, given his HFrEF and stability he did not receive prbcs this admit, discussed in detail with pt and need for cont monitoring as given his cardiac disease should hgb drop in outpt setting as opposed to stay stable and rise as expected, he may require intervention at that time-hgb check this week DM- home dose of 70/30 adjusted to 40 units BID on dc + metformin, record levels on TID checks and fu with pcp as requires good glucose control for healing CKD, creat down trending toward most recent baseline 1.9s- outpt lab checks on abx as prescribed further dx and plan as noted by student time spent on dc 45 min <Jorge A Marmolejo - Last Filed: 04/20/19 16:05> - NOTES TO OUTPATIENT PROVIDER Notes to Outpatient Provider: Patient is being discharged to home with home health for IV antibiotics. He will require CBC and BMP in 3 days, and then weekly CBC/BMP/ESR/CRP/CK for monitoring by Dr. Holcomb with infectious disease. Patient will also need to follow up with podiatry within 1 week of discharge for wound care management. Orders not resulted at time of discharge: Pending orders 04/14/19 20:11 Culture,Anaerobic [RM] Routine Date of Encounter: 04/20/19 Time of Encounter: 07:49 - Discharge Diagnosis (1) Post-operative complication Priority: Primary Status: Acute Qualifiers: Surgical complication type: unspecified (2) CAD (coronary artery disease) Priority: Secondary Status: Chronic Qualifiers: Coronary Disease-Associated Artery/Lesion type: unspecified vessel or lesion type [place] vs. transplanted heart: [place] heart Associated angina: angina presence unspecified Qualified Code(s): I25.10 - Atherosclerotic heart disease of [place] coronary artery without angina pectoris (3) Diabetes mellitus Priority: Secondary Status: Chronic Qualifiers: Diabetes mellitus type: type 2 Qualified Code(s): E11.69 - Type 2 diabetes mellitus with other specified complication; Z79.4 - intermediate accountant (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 (4) Decreased hemoglobin Priority: Secondary Status: Chronic (5) Chronic kidney disease Priority: Secondary Status: Chronic Qualifiers: Chronic kidney disease stage: unspecified stage Qualified Code(s): N18.9 - Chronic kidney disease, unspecified Hospital course: Mr. Vargas is a 49 year old male with past medical history significant for CAD with stents x3, [place], CHF, hypertension, hyperlipidemia, COPD, CKD, GERD, diabetes, and charcot foot who was seen in Podiatry office for follow up after undergoing surgery for charcot foot of left foot on 03/24/2019. Patient was referred to emergency department from there due to increased drainage/swelling from operative site concerning for infection. Patient was admitted and started on empiric antibiotics after cultures were drawn. He was evaluated by podiatry and scheduled for I&D of the wound in the operating room. This was completed on 04/14 without incident and the patient was returned to the medical floor for postoperative care and medical management. Infectious disease consultation was requested for antibiotic recommendations and management. The patient was kept for several days for culture evolution and social work evaluation for likely IV antibiotics. The patient's cultures eventually resulted with susceptibilities and unfortunately there were several limitations. Therefore infectious disease recommended IV cefepime and daptomycin for 2-4 weeks. Social work was able to set up home health with IV antibiotics and the patient will follow up outpatient with infectious disease. Podiatry also made recommendations for wound care and established a wound VAC for the patient and will follow outpatient with him. We also managed anemia and chronic kidney disease during his hospitalization. Both his creatinine and hemoglobin remained stable during hospitalization but will require monitoring outpatient, outpatient labs are ordered. Blood was not given due to the patient's risk for heart failure exacerbation. He was also managed for hyperglycemia. He has a history of diabetes, his home Levemir was increased to 40 twice a day, and he will resume metformin at discharge. Titration at discretion of PCP. Discharge discussed with: patient, family, social work, property consultant - Time Spent with Patient Total time spent providing and/or coordinating discharge services: Date of admission: 04/15/19 15:17 Primary care physician: Jose Rafael Morfin Consults: 04/13/19 17:30 Consult to Podiatry [CONS] Stat Consulting Provider: [facility] Reason for Consult: charcot foot to be taken to surgery tomorrow Call Completed: Yes 04/15/19 15:44 Consult to Infectious Diseases [CONS] Routine Consulting Provider: [facility] Reason for Consult: Recommendationas on antibiotic coverage at the request of podiatry Time Notified: 15:44 Call Completed: Yes Discharging clinician: Jorge A Marmolejo Anticipated date of discharge: 04/20/19 - Constitutional Vitals: Temp Pulse Resp BP Pulse Ox 99 F 71 16 162/77 95 04/20/19 04:23 04/20/19 04:23 04/20/19 04:23 04/20/19 04:23 04/20/19 04:23 Exam: Gen: AAOx3, NAD, pleasant CVS: S1, S2, regular rate and rhythm, no murmurs Lungs: CTA B/L, symmetric expansion, normal effort Extremities: bandaged left foot with wound VAC in place. radial pulses normal 2+ b/l, warm and dry skin Abdomen obese and soft and nontender with normal bowel sounds present Psych: answered questions appropriately, good thought process, understood care plan - Patient Status Functional capacity at discharge: independent ambulation Overall status at discharge: patient is progressing back to baseline - Diet and Activity Activity: increase activity as tolerated Diet: diabetic diet, low fat, low cholesterol, low salt diet
[2019-04-20] MEDS: amLODIPine 5 MG TABLET PO SCH (09:04)
[2019-04-20] MEDS: Furosemide 40 MG TABLET PO SCH (09:04)
[2019-04-20] MEDS: Aspirin Enteric Coated 81 MG Tablet PO SCH (09:04)
[2019-04-20] MEDS: Metoprolol XL (24 HR) Succ 50 MG TAB.ER.24H PO SCH (09:04)
[2019-04-20] MEDS: Famotidine 20 MG TABLET PO SCH (09:04)
[2019-04-20] MEDS: Insulin LISPRO 300 UNITS/3 ML VIAL SQ SCH ×4 (09:05→13:02)
--- NOTE | 2019-04-20 10:35 | Infectious Disease Progress No ---
ID Progress Note Date of Encounter: 04/20/19 Time of Encounter: 10:32 - Subjective Subjective: Patient seen and examined. No acute events overnight. Patient reports minimal pain surgical site. Denies fevers, chills, rigors. Denies chest pain, shortness of breath, or cough. Denies nausea, vomiting, diarrhea, constipation. Denies abdominal pain or urinary complaints. Denies oral thrush or skin rashes. States his last bowel movement was this morning and his appetite is go od. - Objective CBC & Chem 7: 04/20/19 04:49 04/20/19 04:49 - Exam Vitals: Temp Pulse Resp BP Pulse Ox 98.1 F 72 16 156/86 96 04/20/19 08:29 04/20/19 08:29 04/20/19 08:29 04/20/19 08:29 04/20/19 08:29 Exam: Head: Atraumatic, normal inspection, normocephalic. Eye: EOMI, PERRLA, no scleral icterus noted. ENT: Mucous membranes moist. No odontogenic infection noted. Neck: Normal inspection, no meningismus. Respiratory: Clear to auscultation. No rales, respiratory distress, rhonchi, or wheezes noted. Cardiovascular: Regular rate and rhythm, S1 and S2 audible. No murmurs, rubs, or gallops. GI: Soft, obese, normal bowel sounds. Nontender. Extremities:No joint swelling, pedal edema, or tenderness noted. Several superficial scabbed lesions noted to the right lower extremity in various stages of healing. Left foot wound VAC dressing/splint clean, dry, and intact. Diminished sensation noted to the bilateral lower extremities. Neurological: Alert, oriented 3, no focal deficits. Psychiatric: normal affect, normal mood. Skin: Dry, intact, warm. Normal color. No rashes. - Assessment and Plan (1) Cellulitis and abscess of left leg Current Visit: No Status: Acute Location: Left foot. Causative organism: VRE based on cultures. Concern for gram negatives as well since the patient had been on Levaquin for several weeks prior. Likely secondary to recent surgical procedure. Failed outpatient oral antibiotic therapy. Has received multiple courses of oral Levaquin since 03/04/19 with last dose on 04/12/19. Podiatry consult. Status post I&D 04/14/19. Discussed intraoperative findings with Dr. Alvarez he states that there is serosanguineous drainage but not pus. Intra-Op and there is some devitalized tissue around the wound, but deep tissue did not appear to be affected. Currently on IV cefepime and daptomycin. SNOMED Code(s): 992076656 (2) GERD (gastroesophageal reflux disease) Current Visit: No Status: Chronic Qualifiers: Esophagitis presence: esophagitis presence not specified Qualified Code(s): K21.9 - Gastro-esophageal reflux disease without esophagitis SNOMED Code(s): 679231761 (3) HLD (hyperlipidemia) Current Visit: No Status: Chronic Qualifiers: Hyperlipidemia type: mixed hyperlipidemia Qualified Code(s): E78.2 - Mixed hyperlipidemia SNOMED Code(s): 58324320 (4) HTN (hypertension) Current Visit: No Status: Chronic Qualifiers: Hypertension type: essential hypertension Qualified Code(s): I10 - Essential (primary) hypertension SNOMED Code(s): 61715903 (5) CAD (coronary artery disease) Current Visit: No Status: Chronic Qualifiers: Coronary Disease-Associated Artery/Lesion type: unspecified vessel or lesion type [place] vs. transplanted heart: [place] heart Associated angina: angina presence unspecified Qualified Code(s): I25.10 - Atherosclerotic heart disease of [place] coronary artery without angina pectoris SNOMED Code(s): 42005133 (6) CHF (congestive heart failure) Current Visit: No Status: Chronic SNOMED Code(s): 92795771 (7) Charcot foot due to diabetes mellitus Current Visit: Yes Status: Acute Status post fusion of multiple tarsal joints with osteotomy, gastroc recession, plantars tendon lengthening, and removal of external fixator 03/24/[address] Villanueva. SNOMED Code(s): 204624515, 716371565, 397945450 (8) Lisfranc dislocation Current Visit: Yes Status: Acute Etiology: Unclear. Status post left Lisfranc ORIF with left external fixator application 02/18/[address] Villanueva. Qualifiers: Encounter type: subsequent encounter Laterality: left Qualified Code(s): S93.325D - Dislocation of tarsometatarsal joint of left foot, subsequent encounter SNOMED Code(s): 224102413 (9) Diabetes mellitus Current Visit: Yes Status: Chronic Recommend aggressive glucose monitoring and controlled when feeling a prevent reinfection. Management per the primary team. Qualifiers: Diabetes mellitus type: type 2 Qualified Code(s): E11.69 - Type 2 diabetes mellitus with other specified complication; Z79.4 - retirement (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 SNOMED Code(s): 15191212 (10) Chronic kidney disease Current Visit: Yes Status: Chronic Monitor renal function closely does adjust antibiotics. Creatinine stable. Avoid nephrotoxins as able. Qualifiers: Chronic kidney disease stage: unspecified stage Qualified Code(s): N18.9 - Chronic kidney disease, unspecified SNOMED Code(s): 838233276 - Recommendations Recommendations: Unfortunately, based on culture susceptibilities, we are limited in the antibiotic selection we have. Podiatry has requested a couple of weeks of IV antibiotics to ensure adequate treatment of infection. Due to bacterial susceptibilities and the fact that the patient takes Elavil on a daily basis, we do not have oral options if/when the IV antibiotics are discontinued. Wound care and activity restrictions per the Podiatry team. Continue cefepime 2 grams Q24H (dose-adjusted for CrCl ~32). Continue Daptomycin 500mg IV daily. (baseline CK 29). CrCl ~32. Duration of treatment depends on the clinical picture, but likely 2-4 weeks. Continue until seen in the ID clinic. Discussed with VAT and patient is okay to go with EPIV in place. Monitor renal function and for drug toxicity and dose-adjust antibiotics. Will need weekly CBC, BUN/Cr, ESR, CRP, and CK level. Will need weekly EPIV care per protocol. Follow up with ID 05/04/19 at 1440. Consult Discharge Plan - Plan Referrals: Jose Rafael Morfin DO [Primary Care Provider] - Елена Villalba WARP DRAWER [Advanced Practice Nurse] - 05/04/19 2:40 pm
[2019-04-20] MEDS: DAPTOmycin 500 MG in 0.9 % Sodium Chloride 100 ML IVPB SCH (13:02)
--- NOTE | 2019-04-20 14:12 | Physician Discharge Referral ---
<Jorge A Marmolejo - Last Filed: 04/20/19 14:18> Home Health/Hosp Referral Info Transfer to: Home Health Attending Provider: Valente Provider in Charge Post Discharge: PCP - Diagnosis (1) Post-operative complication Priority: Primary Status: Acute (2) CAD (coronary artery disease) Priority: Secondary Status: Chronic (3) Diabetes mellitus Priority: Secondary Status: Chronic (4) Decreased hemoglobin Priority: Secondary Status: Chronic (5) Chronic kidney disease Priority: Secondary Status: Chronic - Respiratory Orders None Smoking Cessation: Smoking cessation has been advised. For more information, call the [employer] Quit Line at 9-343-LEUX-NOW. - Dressing/Wound Care Site: left foot Type of Dressing/Treatments w/Frequency: Wound care/vac instructions per podiatry Previous sponge removed, site flushed with .9 NS and pat dry. painted all macerated skin with betadine. small black simplace sponge applied to wound bed and tracked to dorsal aspect of foot, skin to dorsal foot draped with tegaderm in usual fashion with window-pane dressing for protection of underlying skin. 4x4 applied to suture line in attempt to dry macerated tissue. Tegaderm draped to sponge and sealed to 125mmHg low cont suction. Good seal noted without leak. Covered LLE with Kerlix and NAIMA. Tubing offset to prevent further complications. - Diet/Nutrition Diet/Nutrition Orders: No Added Salt (IRON), Cardiac, No Concentrated Sweets - Activity Activity Orders: Up ad glory - Services Needed Following services are medically necessary services: Nursing, Physical Therapy, Occupational Therapy Other Treatments: Patient will need CBC/BMP on third day after discharge. Patient will require weekly CBC/BMP/ESR/CRP/CK weekly for infectious disease. - Transfer Medications Prescriptions: Cefepime HCl/D5w [Cefepime-Dextrose 2 gm/50 ml] 2 gm IV Q24H 14 Days #14 mls DAPTOmycin [Daptomycin] 500 mg IV DAILY 14 Days #14 vial Insulin Aspart Prot/Insuln Asp [Novolog Mix 70-30 Vial] 40 unit SQ BID 30 Days #24 vial Home Medications: Clopidogrel [Plavix] 75 mg PO QAM 02/18/19 [History] Furosemide [Lasix] 40 mg PO QAM 02/18/19 [History] Metformin HCl [Fortamet] 1,000 mg PO BID 02/18/19 [History] Metoprolol XL (24 HR) Succ [Toprol Xl] 100 mg PO QAM 02/18/19 [History] amLODIPine [Norvasc] 5 mg PO QAM 02/18/19 [History] Aspirin [Adult Aspirin] 81 mg PO DAILY 03/24/19 [History] Atorvastatin Calcium [Lipitor] 80 mg PO HS 03/24/19 [History] HYDROcodone/Acet 5/325 mg [[place] 5-325 mg] 1 tab PO Q6H PRN 3 Days #12 tab 03/24/19 [Rx] Ondansetron ODT [Zofran ODT] 4 mg SL Q8HR PRN #12 tab.rapdis 03/24/19 [Rx] raNITIdine HCl [Zantac] 150 mg PO BID 03/24/19 [History] Amitriptyline [Elavil] 25 mg PO HS 04/13/19 [History] Losartan Potassium [Cozaar] 100 mg PO QAM 04/13/19 [History] Cefepime HCl/D5w [Cefepime-Dextrose 2 gm/50 ml] 2 gm IV Q24H 14 Days #14 mls 04/20/19 [Rx] DAPTOmycin [Daptomycin] 500 mg IV DAILY 14 Days #14 vial 04/20/19 [Rx] Insulin Aspart Prot/Insuln Asp [Novolog Mix 70-30 Vial] 40 unit SQ BID 30 Days #24 vial 04/20/19 [Rx] Allergies/Adverse Reactions: Allergy/AdvReac Type Severity Reaction Status Date / Time No Known Allergies Allergy Verified 04/13/19 21:43 Certification: Further, I certify that my clinical findings support that this patient is homebound (i.e. absences from home require considerable and taxing effort and are for medical reasons or holiness services or infrequently or short duration when for other reasons) because: Homebound Reason: Post-surgery restriction and or conditions limit ability to leave home Attestation: My signature below is to certify that this patient is under my care and that I, or nurse practitioner, or a physician's family services assistant working with me, has a [id number] encounter with this patient. <Kacey Victor - Last Filed: 04/20/19 15:34> - Diagnosis (1) Charcot foot due to diabetes mellitus Status: Acute (2) Lisfranc dislocation Status: Acute (3) Diabetes mellitus Status: Chronic (4) Decreased hemoglobin Status: Chronic (5) Chronic kidney disease Status: Chronic (6) Post-operative complication Status: Acute - Respiratory Orders Smoking Cessation: Smoking cessation has been advised. For more information, call the [employer] Quit Line at 5-649-QKXI-NOW. - Activity Activity Orders: Up ad glory (Non-weight bearing left lower extremity) Certification: Further, I certify that my clinical findings support that this patient is homebound (i.e. absences from home require considerable and taxing effort and are for medical reasons or holiness services or infrequently or short duration when for other reasons) because: Attestation: My signature below is to certify that this patient is under my care and that I, or nurse practitioner, or a physician's family services assistant working with me, has a abxi-yp-nuti encounter with this patient.
--- NOTE | 2019-04-20 15:47 | Electrocardiograph Report ---
[address] [address] Test Date: 2019-04-15 Pat Name: Pepe Vargas Department: 114 Room: [facility] Gender: M Sign Language Teacher: : 1970 Requested By: Kacey Victor Order Number: [id number] Reading MD: Stanislaw Alonzo Measurements Intervals [place] Rate: 65 P: 32 FL: 150 QRS: 43 QRSD: 124 T: 54 QT: 424 QTc: 436 Interpretive Statements SINUS RHYTHM Nonspecific intraventricular conduction delay INTERPRETATION BASED ON A DEFAULT AGE OF 40 YEARS Electronically Signed On 04-20-2019 15:45:28 EDT by Stanislaw Alonzo
[2019-04-20 15:52] VITALS: BP 143/75
== END 2019-04-20 16:25 | disposition home health service (06) | DRG 711 ==
LOC: 3NENU 16:27 → EMEROOARM 16:27 → SUATTDRO 19:35 → 3NENU 20:28
PROVIDERS: ADMIT Internal Medicine; ATTEND Internal Medicine

== ENCOUNTER 2019-04-22 04:37 | Inpatient (IN) ==
--- NOTE | 2019-04-22 04:51 | Emergency Department Note ---
Disposition Clinical Impression: Acute electrocardiogram changes, Elevated troponin, NSTEMI (non-ST elevated myocardial infarction) Dyspnea Qualifiers: Dyspnea type: unspecified Qualified Code(s): R06.00 - Dyspnea, unspecified CHF exacerbation Qualifiers: Heart failure type: unspecified Qualified Code(s): I50.9 - Heart failure, unspecified Pulmonary edema Qualifiers: Chronicity: acute Qualified Code(s): J81.0 - Acute pulmonary edema CKD (chronic kidney disease) Qualifiers: Chronic kidney disease stage: unspecified stage Qualified Code(s): N18.9 - Chronic kidney disease, unspecified Disposition: Admitted As Inpatient Referrals: Jose Rafael Morfin DO [Primary Care Provider] - Forms: ED Satisfaction Letter Time of Disposition: 06:57 General Adult HPI - General Chief complaint: ED Shortness of Breath/Dyspnea Stated complaint: Dyspnea Lying Down Time Seen by Provider: 04/22/19 04:43 Source: patient, family Mode of arrival: private vehicle Limitations: no limitations Nursing Notes Reviewed: Yes Vital Signs Reviewed: Yes - History of Present Illness HPI Narrative: Patient is a 49-year-old male with a past medical history including coronary artery disease status post 3 stents on plavix, CHF, hypertension, hyperlipidemia, COPD, CAD, GERD, diabetes, charcoal foot, who is recently admitted after undergoing surgery for a Charcot's foot of the left foot on 03/24/2019. He had increased drainage and swelling from the operative site. He had an I&D of the wound of the OR during admission on April 14. He was started on antibiotics. The patient was seen by infectious disease. He is discharged on April 20 on IV cefepime and daptomycin for an additional 2-4 weeks. Patient has a wound vac on the left foot. Last night, the patient went to sleep. Near midnight, the patient woke up feeling short of breath. throughout the night he woke up 6 times with difficulty breathing. The patient states he is short of breath when he is laying flat otherwise no shortness of breath with sitting up or standing. He states he was adding salt during the hospitalization on his food. He complains of a new dry cough, no sick contacts. Denies chest pain, fevers or chills. Pain Scale: 0 - Related Data Home Medications Medication Instructions Recorded Confirmed Clopidogrel [Plavix] 75 mg PO QAM 02/18/19 04/13/19 Furosemide [Lasix] 40 mg PO QAM 02/18/19 04/13/19 Metformin HCl [Fortamet] 1,000 mg PO BID 02/18/19 04/13/19 Metoprolol XL (24 HR) Succ [Toprol 100 mg PO QAM 02/18/19 04/13/19 Xl] amLODIPine [Norvasc] 5 mg PO QAM 02/18/19 04/13/19 Aspirin [Adult Aspirin] 81 mg PO DAILY 03/24/19 04/13/19 Atorvastatin Calcium [Lipitor] 80 mg PO HS 03/24/19 04/13/19 raNITIdine HCl [Zantac] 150 mg PO BID 03/24/19 04/13/19 Amitriptyline [Elavil] 25 mg PO HS 04/13/19 04/13/19 Losartan Potassium [Cozaar] 100 mg PO QAM 04/13/19 04/13/19 Previous Rx's Medication Instructions Recorded HYDROcodone/Acet 5/325 mg [[place] 1 tab PO Q6H PRN 3 Days #12 tab 03/24/19 5-325 mg] Ondansetron ODT [Zofran ODT] 4 mg SL Q8HR PRN #12 tab.rapdis 03/24/19 Cefepime HCl/D5w 2 gm IV Q24H 14 Days #14 mls 04/20/19 [Cefepime-Dextrose 2 gm/50 ml] DAPTOmycin [Daptomycin] 500 mg IV DAILY 14 Days #14 vial 04/20/19 Insulin Aspart Prot/Insuln Asp 40 unit SQ BID 30 Days #24 vial 04/20/19 [Novolog Mix 70-30 Vial] Allergies Allergy/AdvReac Type Severity Reaction Status Date / Time No Known Allergies Allergy Verified 04/22/19 04:41 All systems ED: reviewed and negative except as stated. Review of Systems: As Per HPI Constitutional: Denies: fever, chills Cardiovascular: Denies: chest pain, palpitations Respiratory: Reports: cough, dyspnea Gastrointestinal: Denies: abdominal pain, nausea, vomiting Neurological: Denies: headache, weakness Past Medical History - Past Medical History Attestation: Yes The following information was validated with the patient. Source: patient Medical history: Reports: CHF, COPD, coronary artery disease, diabetes, GERD, hyperlipidemia, hypertension, myocardial infarction, renal disease, other Surgical history: Reports: angioplasty/stent, orthopedic, other Psychiatric history: Reports: no psych history - Social History Smoking Status: Former smoker Smokeless Tobacco Status: No Alcohol use: Reports: none Drug use: Reports: none Physical Exam - General Limitations: no limitations General appearance: alert, in no apparent distress - Head Head exam: atraumatic, normocephalic - Eye Eye exam: Present: normal appearance, EOMI - ENT ENT exam: normal exam, normal oropharynx - Neck Neck exam: Present: normal inspection, trachea midline - Chest Chest inspection: Present: normal inspection, symmetric chest wall rise - Respiratory Respiratory exam: Present: other (Diminished breath sounds bilaterally without wheezes or crackles) - Cardiovascular Cardiovascular exam: Present: normal rhythm, tachycardia, other (Bilateral radial pulses are equal) - Abdominal Exam Abdominal exam: Present: soft, Non-Tender. Absent: distention - Extremities Exam Extremities exam: Present: other (Left foot wrapped with wound VAC. Left lower extremity swelling greater than right lower extremity swelling, pitting edema bilaterally) - Neurological Exam Neurological exam: Present: alert, oriented X3 - Psychiatric Psychiatric exam: Present: normal affect, normal mood - Skin Skin exam: Present: warm, dry. Absent: diaphoresis, pallor Course Vital Signs Temperature 98.1 F 04/22/19 04:38 Pulse Rate 110 04/22/19 04:38 Respiratory Rate 20 04/22/19 04:38 Blood Pressure 163/85 04/22/19 04:38 O2 Sat by Pulse Oximetry 95 04/22/19 04:38 Temperature 98.1 F 04/22/19 04:38 Pulse Rate 99 04/22/19 06:26 Respiratory Rate 24 04/22/19 06:26 Blood Pressure 166/93 04/22/19 06:26 O2 Sat by Pulse Oximetry 99 04/22/19 06:26 Oxygen Delivery Oxygen Delivery Room Air Medical Decision Making - [facility] Narrative Medical decision making narrative: Patient was recently admitted for postoperative infection of his left charcoal at foot. He had an inpatient incision and drainage by podiatry. He was discharged home 2 days ago on IV cefepime and daptomycin. He is afebrile, he is slightly tachycardic and tachypneic. Presenting with shortness of breath when lying flat since last night. He denies any chest pain. At this time while sitting up, he denies shortness of breath. He is slightly tachycardic with heart rate 107. EKG does show new T-wave and ST depressions when compared to old. He is chest pain free. Suspect that the patient is likely fluid overloaded and has significant bilateral lower extremity swelling. We will obtain CBC, BMP, troponin, BNP, chest x-ray. He is currently on IV cefepime and daptomycin for his left foot charcots. Patient does have a GFR <45. He will either need a left lower extremity Doppler ultrasound to evaluate for DVT and/or V/Q scan to evaluate for pulmonary embolism as a source for his dyspnea as he is tachycardic and had recent surgery, however believe this is due to fluid overload and congestive heart failure. Not hypoxic on room air. Most recent echocardiogram 05:35 Chest x-ray shows new cardiomegaly with pulmonary edema. We will give a dose of 40 mg IV Lasix. 06:10 Patient has an elevated troponin of 0.61. Patient was reevaluated and states he has no chest pain or shortness of breath, no acute symptoms at this time. He is in no acute distress. Repeat EKG will be obtained and compared to the EKG at 448. 06:15 Repeat EKG was obtained at 613 shows sinus tachycardia with heart rate 101, MD interval 129, QRS duration 116, QTC 455, EKG shows no acute changes from the EKG of 448. Cardiology paged. 06:30 Discussed with Cardiology, Dr. Huang. Heparin will be started and patient will be evaluated on consult. Hospitalist paged for admission. patient stable and has no acute complaints. 06:50 Discussed with Hospitalist, Dr. Jones who accepts admission - Medical Records Medical records reviewed: Yes I reviewed the patient's medical records. - Lab Data Lab results reviewed: Yes I reviewed the patient's lab results. Result diagrams: 04/22/19 05:22 04/22/19 05:22 Lab Results 04/22/19 04/22/19 04/22/19 Range/Units 05:22 05:22 05:22 WBC 7.3 (4.3-11.1) K/mcL RBC 2.92 L (4.19-5.50) M/mcL Hgb 8.5 L (12.9-16.9) g/dL Hct 27.0 L (37.5-50.1) % MCV 92.5 (83.0-100.0) fL MCH 29.1 (28.0-33.3) pg MCHC 31.5 L (31.6-35.5) g/dL RDW 14.5 (11.5-14.5) % Plt Count 161 (140-400) K/mcL MPV 12.3 (9.4-12.4) fL Immature Gran % 0.5 (0-4) % Seg Neutrophils % 77.7 % Lymphocytes % 9.7 % Monocytes % 9.8 % Eosinophils % 2.0 % Basophils % 0.3 % Neutrophils # 5.7 (1.6-8.9) K/mcL Lymphocytes # 0.7 (0.6-4.6) K/mcL Monocytes # 0.7 (0.0-1.3) K/mcL Eosinophils # 0.2 (0.0-0.6) K/mcL Basophils # 0.0 (0.0-0.2) K/mcL Sodium 138 (136-145) mEq/L Potassium 4.1 (3.5-5.1) mEq/L Chloride 106 (98-107) mEq/L Carbon Dioxide 23 (23-29) mEq/L BUN 29 H (6-20) mg/dL Creatinine 1.83 H (0.70-1.30) mg/dL Est GFR ( Amer) 48 L (> 60) Est GFR (Non-Af Amer) 39 L (> 60) BUN/Creatinine Ratio 16 (6-26) Glucose 184 H (70-105) mg/dL Calculated Osmolality 297 (280-300) Lactic Acid (0.5-2.2) mmol/L Calcium 8.2 L (8.6-10.3) mg/dL Troponin I 0.61 H* (< 0.04) ng/mL B-Natriuretic Peptide 974 H (Less than 100) pg/mL 04/22/19 Range/Units 05:22 WBC (4.3-11.1) K/mcL RBC (4.19-5.50) M/mcL Hgb (12.9-16.9) g/dL Hct (37.5-50.1) % MCV (83.0-100.0) fL MCH (28.0-33.3) pg MCHC (31.6-35.5) g/dL RDW (11.5-14.5) % Plt Count (140-400) K/mcL MPV (9.4-12.4) fL Immature Gran % (0-4) % Seg Neutrophils % % Lymphocytes % % Monocytes % % Eosinophils % % Basophils % % Neutrophils # (1.6-8.9) K/mcL Lymphocytes # (0.6-4.6) K/mcL Monocytes # (0.0-1.3) K/mcL Eosinophils # (0.0-0.6) K/mcL Basophils # (0.0-0.2) K/mcL Sodium (136-145) mEq/L Potassium (3.5-5.1) mEq/L Chloride (98-107) mEq/L Carbon Dioxide (23-29) mEq/L BUN (6-20) mg/dL Creatinine (0.70-1.30) mg/dL Est GFR ( Amer) (> 60) Est GFR (Non-Af Amer) (> 60) BUN/Creatinine Ratio (6-26) Glucose (70-105) mg/dL Calculated Osmolality (280-300) Lactic Acid 1.8 (0.5-2.2) mmol/L Calcium (8.6-10.3) mg/dL Troponin I (< 0.04) ng/mL B-Natriuretic Peptide (Less than 100) pg/mL - Radiology Data Radiology results reviewed: Yes I reviewed the patient's radiology results. Chest X-Ray 04/22/19 04:51 IMPRESSION: Cardiomegaly with possible pulmonary edema. D/ / Linus Jeffery MD / Linus Jeffery MD Interpreting Provider: Linus Jeffery MD - EKG Data EKG #1 EKG attestation: Yes I reviewed and interpreted this EKG. EKG results narrative: EKG obtained at 448 shows sinus tachycardia with heart rate 107, MD interval 129, QRS duration 120, QTC 483, mild ST elevation in aVR, [address] depression in lead 1, V4, V5, V6. T-wave inversion in lead 3 and aVF. Compared to old EKG on 04/15/2019 which these are new changes. There is another EKG found on April 21 in the [facility] system that did show T-wave inversion in lead [address] depression in V4 and V5 at that time.
[2019-04-22 05:36] LABS: Basophils % 0.3 %; Eosinophils # 0.2 K/mcL (0.0-0.6); Hemoglobin 8.5 g/dL (12.9-16.9); Immature Granulocytes % 0.5 % (0-4); Lymphocytes # 0.7 K/mcL (0.6-4.6); Lymphocytes % 9.7 %; Mean Corpuscular HGB Conc 31.5 g/dL (31.6-35.5); Mean Corpuscular Hemoglobin 29.1 pg (28.0-33.3); Mean Corpuscular Volume 92.5 fL (83.0-100.0); Mean Platelet Volume 12.3 fL (9.4-12.4); Monocytes # 0.7 K/mcL (0.0-1.3); Monocytes % 9.8 %; Neutrophils # 5.7 K/mcL (1.6-8.9); Platelet Count 161 K/mcL (140-400); Red Blood Count 2.92 M/mcL (4.19-5.50); Red Cell Distribution Width 14.5 % (11.5-14.5); Segmented Neutrophils % 77.7 %; White Blood Count 7.3 K/mcL (4.3-11.1)
[2019-04-22] MEDS ORDERED: Furosemide 40 MG/4 ML VIAL IVP ONE (05:36)
[2019-04-22 05:57] LABS: Calcium 8.2 mg/dL (8.6-10.3); Potassium 4.1 mEq/L (3.5-5.1)
[2019-04-22 06:04] LABS: Troponin I 0.61 ng/mL (< 0.04)
[2019-04-22] MEDS ORDERED: *HR* Heparin 5,000 UNIT/ML VIAL IVP ONE (06:30)
[2019-04-22] MEDS ORDERED: Aspirin 81 MG TAB.CHEW PO STA (06:50)
[2019-04-22] MEDS: Heparin 25,000 UNIT/250 ML D5W 25,000 UNIT/250 ML IV.SOLN IVC SCH (07:29)
[2019-04-22 07:31] LABS: INR 0.9; Prothrombin Time 10.5 Seconds (9.4-12.1)
--- NOTE | 2019-04-22 07:32 | Emergency Department Note ---
Disposition Clinical Impression: Acute electrocardiogram changes, Elevated troponin, NSTEMI (non-ST elevated myocardial infarction) Dyspnea Qualifiers: Dyspnea type: unspecified Qualified Code(s): R06.00 - Dyspnea, unspecified CHF exacerbation Qualifiers: Heart failure type: unspecified Qualified Code(s): I50.9 - Heart failure, unspecified Pulmonary edema Qualifiers: Chronicity: acute Qualified Code(s): J81.0 - Acute pulmonary edema CKD (chronic kidney disease) Qualifiers: Chronic kidney disease stage: unspecified stage Qualified Code(s): N18.9 - Chronic kidney disease, unspecified Disposition: Admitted As Inpatient Time of Disposition: 06:57 General Adult HPI - General Chief complaint: ED Shortness of Breath/Dyspnea Stated complaint: Dyspnea Lying Down Time Seen by Provider: 04/22/19 04:43 Source: patient, family Mode of arrival: private vehicle Limitations: no limitations Nursing Notes Reviewed: Yes Vital Signs Reviewed: Yes - History of Present Illness Pain Scale: 0 - Related Data Home Medications Medication Instructions Recorded Confirmed Clopidogrel [Plavix] 75 mg PO QAM 02/18/19 04/22/19 Furosemide [Lasix] 40 mg PO QAM 02/18/19 04/22/19 Metformin HCl [Fortamet] 1,000 mg PO BID 02/18/19 04/22/19 Metoprolol XL (24 HR) Succ [Toprol 100 mg PO QAM 02/18/19 04/22/19 Xl] amLODIPine [Norvasc] 5 mg PO QAM 02/18/19 04/22/19 Aspirin [Adult Aspirin] 81 mg PO DAILY 03/24/19 04/22/19 Atorvastatin Calcium [Lipitor] 80 mg PO HS 03/24/19 04/22/19 raNITIdine HCl [Zantac] 150 mg PO BID 03/24/19 04/22/19 Amitriptyline [Elavil] 25 mg PO HS 04/13/19 04/22/19 Losartan Potassium [Cozaar] 100 mg PO QAM 04/13/19 04/22/19 Previous Rx's Medication Instructions Recorded HYDROcodone/Acet 5/325 mg [[place] 1 tab PO Q6H PRN 3 Days #12 tab 03/24/19 5-325 mg] Ondansetron ODT [Zofran ODT] 4 mg SL Q8HR PRN #12 tab.rapdis 03/24/19 Cefepime HCl/D5w 2 gm IV Q24H 14 Days #14 mls 04/20/19 [Cefepime-Dextrose 2 gm/50 ml] DAPTOmycin [Daptomycin] 500 mg IV DAILY 14 Days #14 vial 04/20/19 Insulin Aspart Prot/Insuln Asp 40 unit SQ BID 30 Days #24 vial 04/20/19 [Novolog Mix 70-30 Vial] Allergies Allergy/AdvReac Type Severity Reaction Status Date / Time No Known Allergies Allergy Verified 04/22/19 04:41 Constitutional: Denies: fever, chills Cardiovascular: Denies: chest pain, palpitations Respiratory: Reports: cough, dyspnea Gastrointestinal: Denies: abdominal pain, nausea, vomiting Neurological: Denies: headache, weakness Past Medical History - Past Medical History Medical history: Reports: CHF, COPD, coronary artery disease, diabetes, GERD, hyperlipidemia, hypertension, myocardial infarction, renal disease, other Surgical history: Reports: angioplasty/stent, orthopedic, other Psychiatric history: Reports: no psych history - Social History Smoking Status: Former smoker Smokeless Tobacco Status: No Alcohol use: Reports: none Drug use: Reports: none Physical Exam - General Limitations: no limitations General appearance: alert, in no apparent distress Course Vital Signs Temperature 98.1 F 04/22/19 04:38 Pulse Rate 110 04/22/19 04:38 Respiratory Rate 20 04/22/19 04:38 Blood Pressure 163/85 04/22/19 04:38 O2 Sat by Pulse Oximetry 95 04/22/19 04:38 Temperature 98.1 F 04/22/19 04:38 Pulse Rate 99 04/22/19 06:26 Respiratory Rate 24 04/22/19 06:26 Blood Pressure 166/93 04/22/19 06:26 O2 Sat by Pulse Oximetry 99 04/22/19 06:26 Oxygen Delivery Oxygen Delivery Room Air Medical Decision Making - Medical Records Medical records reviewed: Yes I reviewed the patient's medical records. - Lab Data Lab results reviewed: Yes I reviewed the patient's lab results. Result diagrams: 04/22/19 05:22 04/22/19 05:22 Lab Results 04/22/19 04/22/19 04/22/19 Range/Units 05:22 05:22 05:22 WBC 7.3 (4.3-11.1) K/mcL RBC 2.92 L (4.19-5.50) M/mcL Hgb 8.5 L (12.9-16.9) g/dL Hct 27.0 L (37.5-50.1) % MCV 92.5 (83.0-100.0) fL MCH 29.1 (28.0-33.3) pg MCHC 31.5 L (31.6-35.5) g/dL RDW 14.5 (11.5-14.5) % Plt Count 161 (140-400) K/mcL MPV 12.3 (9.4-12.4) fL Immature Gran % 0.5 (0-4) % Seg Neutrophils % 77.7 % Lymphocytes % 9.7 % Monocytes % 9.8 % Eosinophils % 2.0 % Basophils % 0.3 % Neutrophils # 5.7 (1.6-8.9) K/mcL Lymphocytes # 0.7 (0.6-4.6) K/mcL Monocytes # 0.7 (0.0-1.3) K/mcL Eosinophils # 0.2 (0.0-0.6) K/mcL Basophils # 0.0 (0.0-0.2) K/mcL Sodium 138 (136-145) mEq/L Potassium 4.1 (3.5-5.1) mEq/L Chloride 106 (98-107) mEq/L Carbon Dioxide 23 (23-29) mEq/L BUN 29 H (6-20) mg/dL Creatinine 1.83 H (0.70-1.30) mg/dL Est GFR ( Amer) 48 L (> 60) Est GFR (Non-Af Amer) 39 L (> 60) BUN/Creatinine Ratio 16 (6-26) Glucose 184 H (70-105) mg/dL Calculated Osmolality 297 (280-300) Lactic Acid (0.5-2.2) mmol/L Calcium 8.2 L (8.6-10.3) mg/dL Troponin I 0.61 H* (< 0.04) ng/mL B-Natriuretic Peptide 974 H (Less than 100) pg/mL 04/22/19 Range/Units 05:22 WBC (4.3-11.1) K/mcL RBC (4.19-5.50) M/mcL Hgb (12.9-16.9) g/dL Hct (37.5-50.1) % MCV (83.0-100.0) fL MCH (28.0-33.3) pg MCHC (31.6-35.5) g/dL RDW (11.5-14.5) % Plt Count (140-400) K/mcL MPV (9.4-12.4) fL Immature Gran % (0-4) % Seg Neutrophils % % Lymphocytes % % Monocytes % % Eosinophils % % Basophils % % Neutrophils # (1.6-8.9) K/mcL Lymphocytes # (0.6-4.6) K/mcL Monocytes # (0.0-1.3) K/mcL Eosinophils # (0.0-0.6) K/mcL Basophils # (0.0-0.2) K/mcL Sodium (136-145) mEq/L Potassium (3.5-5.1) mEq/L Chloride (98-107) mEq/L Carbon Dioxide (23-29) mEq/L BUN (6-20) mg/dL Creatinine (0.70-1.30) mg/dL Est GFR ( Amer) (> 60) Est GFR (Non-Af Amer) (> 60) BUN/Creatinine Ratio (6-26) Glucose (70-105) mg/dL Calculated Osmolality (280-300) Lactic Acid 1.8 (0.5-2.2) mmol/L Calcium (8.6-10.3) mg/dL Troponin I (< 0.04) ng/mL B-Natriuretic Peptide (Less than 100) pg/mL - Radiology Data Radiology results reviewed: Yes I reviewed the patient's radiology results. Chest X-Ray 04/22/19 04:51 IMPRESSION: Cardiomegaly with possible pulmonary edema. D/ / Linus Jeffery MD / Linus Jeffery MD Interpreting Provider: Linus Jeffery MD - EKG Data EKG #1 EKG attestation: Yes I reviewed and interpreted this EKG. EKG results narrative: EKG shows sinus tachycardia with ventricular rate of 107. Nonspecific intraventricular conduction delay. There is mild ST segment elevation in aVR. Patient also has new ST segment depression in lead 1 and lead V3 through V6. T- wave inversions in lead 3 and aVF. These findings are all new compared to a prior EKG dated 04/15/2019. Critical Care Time Critical Care Time: Yes Total Critical Care Time: 50 Attestation: Critical care performed: Time is exclusive of separately billable procedures. Time includes: direct patient care, patient reassessment, coordination of patient care, interpretation of data (laboratory data, radiology data, and respiratory data), review of patient's medical records, medical consultation and documentation of patient care. Procedures included in critical care time: Procedures excluded from critical care time: Attestation Statement - Attestation Attestation: I, Berhane Dong MD, personally evaluated this patient and discussed their management with the resident physician. I reviewed the resident's note and agree with the documented findings, medical decision making, and plan of care. I reviewed the residents documentation and agree with the residents assessment and plan of care. I have personally had face to face time with the patient. I personally supervised and was present for the knight/critical portions of the following procedures completed by the resident: EKG interpretation. 49-year-old male presents to the emergency department with a complaint of awakening from sleep about 10 PM tonight with shortness of breath. Patient states he was fine when he went to bed and he awoke with difficulty breathing and coughing. He sat up and the symptoms improved. He states in the night every time he would lie down he would get short of breath again. Patient was just recently in the hospital. He had surgery one week ago on his left foot. This was the third operation he has had on this foot. There has been no sputum production. No fever but some chills. He denies any chest pain at all. States he feels fine as long as he is sitting up but good short of breath when he lies down. He does have some increased swelling of the lower extremities. The left lower extremity is significantly swollen which she states has been ongoing due to the foot issue. On examination patient is a well-developed obese male in no acute distress. He is alert and oriented 3. There is no cyanosis or diaphoresis. Breath sounds are clear and equal bilaterally. Heart regular with a mild tachycardia. Abdomen soft and nontender with normal bowel sounds. EKG shows sinus tachycardia with ventricular rate of 107. Nonspecific intraventricular conduction delay. There is mild ST segment elevation in aVR. Patient also has new ST segment depression in lead 1 and lead V3 through V6. T-wave inversions in lead 3 and aVF. These findings are all new compared to a prior EKG dated 04/15/2019. Chest x-ray shows cardiomegaly and pulmonary edema. Labs reviewed. BNP 974. Troponin 0.61. Chronic kidney disease which is stable. Patient received Lasix 40 mg IV. Patient placed on heparin infusion. Dr. Shin discussed the patient and EKG findings with the physical education teacher paraprofessional interpreter, Dr. Lamb, and he recommended admission on a heparin drip and cardiology will consult on the patient in the hospital. The hospitalist, Dr. Jones, was consulted and accepted admission of the patient.
[2019-04-22 07:36] LABS: Heparin anti-factor XA UFH 0.05 IU/mL (0.30-0.70)
[2019-04-22] MEDS ORDERED: *HR* HYDROcodone/Acet 5/325 mg TABLET PO PRN (08:22)
--- NOTE | 2019-04-22 08:25 | Internal Med History&Physical ---
Date of Encounter: 04/22/19 Time of Encounter: 07:47 Internal Medicine - H&P: HPI Chief complaint: Orthopnea Admitted From: Home Plans for Post Hospital Care: Home History of present illness: Mr. Vargas is a 49 year old male with hx of CAD s/p 3 stents on ASA/Plavix, HFrEF EF 35-40% on lasix 40mg qd, and IDDM Type II c/b charcot foot who presents with orthopnea. Patient was recently discharged from the hospital 04/20 after being admitted for a post-op foot infection and hematoma requiring surgical intervention by podiatry. Was seen by ID and discharged with HH on IV antibiotics (cefepime and daptomycin). Last night patient began to experience profound orthopnea when he was trying to sleep. Woke up gasping for air. Denies dyspnea otherwise and denies shortness of breath on exertion. Denies chest pain. Says he has not had chest pain since his previous PR. Cardiac history includes stent placed, per patient, around 2015. Patient was taken back to [facility] 01/13/18 and there is evidence of severe three-vessel disease. Patient has not since placed in RCA and LAD. There was a previous stent in circumflex with severe in-stent stenosis that could not be intervened upon. Past Med Surg Social Fam HX - Past Medical History Medical history: CHF, COPD, coronary artery disease, diabetes, GERD, hyperlipidemia, hypertension, myocardial infarction, renal disease, other Additional medical history: Charcot's joint of L foot, Lisfranc dislocation, antithrombotics/antiplatelets, ischemic cardiomyopathy Psychiatric history: no psych history - Past Surgical History Surgical History: angioplasty/stent, orthopedic, other Additional surgical history: left foot surgery, cardiac stents, LHC, L foot I&D - Social History Smoking Status: Former smoker Smokeless Tobacco Status: No Alcohol use: none Drug use: none - Family History Father Family Member Ethnicity: Non- Living Status: Hx Family Cardiac Disorders: Yes (HTN) Hx Family Endocrine Disorder: Yes (DM) Sister Family Member Ethnicity: Non- Living Status: Still Living Hx Family Endocrine Disorder: Yes (DM) Brother Family Member Ethnicity: Non- Living Status: Still Living Hx Family Cardiac Disorders: Yes (PR Age 50) Hx Family Endocrine Disorder: Yes (DM) Mother Family Member Ethnicity: Non- Living Status: Hx Family Cardiac Disorders: Yes (HD) Hx Family Endocrine Disorder: Yes (DM) Internal Medicine - H&P: Meds Clopidogrel [Plavix] 75 mg PO QAM 02/18/19 [History] Furosemide [Lasix] 40 mg PO QAM 02/18/19 [History] Metformin HCl [Fortamet] 1,000 mg PO BID 02/18/19 [History] Metoprolol XL (24 HR) Succ [Toprol Xl] 100 mg PO QAM 02/18/19 [History] amLODIPine [Norvasc] 5 mg PO QAM 02/18/19 [History] Aspirin [Adult Aspirin] 81 mg PO DAILY 03/24/19 [History] Atorvastatin Calcium [Lipitor] 80 mg PO HS 03/24/19 [History] HYDROcodone/Acet 5/325 mg [[place] 5-325 mg] 1 tab PO Q6H PRN 3 Days #12 tab 03/24/19 [Rx] Ondansetron ODT [Zofran ODT] 4 mg SL Q8HR PRN #12 tab.rapdis 03/24/19 [Rx] raNITIdine HCl [Zantac] 150 mg PO BID 03/24/19 [History] Amitriptyline [Elavil] 25 mg PO HS 04/13/19 [History] Losartan Potassium [Cozaar] 100 mg PO QAM 04/13/19 [History] Cefepime HCl/D5w [Cefepime-Dextrose 2 gm/50 ml] 2 gm IV Q24H 14 Days #14 mls 04/20/19 [Rx] DAPTOmycin [Daptomycin] 500 mg IV DAILY 14 Days #14 vial 04/20/19 [Rx] Insulin Aspart Prot/Insuln Asp [Novolog Mix 70-30 Vial] 40 unit SQ BID 30 Days #24 vial 04/20/19 [Rx] Allergy/AdvReac Type Severity Reaction Status Date / Time No Known Allergies Allergy Verified 04/22/19 04:41 All Systems PM: A 10-system review of systems was performed and is negative for pertinent findings except as documented above in the HPI. Review of systems: General: Fevers / Chills / Weight loss / Night sweats Eyes: Blurry Vision / Change in Vision HENT: Ear Pain / Ear Drainage / Rhinorrhea / Throat Pain / Lymphadenopathy Cardiovascular: Chest Pain / Palpatations / Orthopnea / PAUL[place] / Weight gain Lungs: Dyspnea / Wheezing / Cough / Sputum production / Pleurisy Abdomen: Abdomen pain / Abdominal distention / Nausea / Vomiting / Diarrhea / Const : Dysuria / Urinary Frequency / Urinary Urgency / Hematuria Extremities: LE edema / Ext pain / Ext erythema Skin: Rashes / Abrasions / Contusions Psych: Hallucinations / Anxiety / Depression Neuro: Weakness / Numbness / Tingling / Facial Droop / Dysphagia - Constitutional Vitals: Temp Pulse Resp BP Pulse Ox 98.1 F 99 24 160/84 97 04/22/19 04:38 04/22/19 07:35 04/22/19 07:35 04/22/19 07:35 04/22/19 07:35 Exam: General: Ill-appearing and in no acute distress HEENT: No erythema of posterior pharynx. No exudates. Lymphatics: No mandibular or cervical lymphadenopathy Cardiovascular: RRR. No murmurs. No chest wall tenderness. Lungs: Basilar crackles. Regular chest rise. Abdomen: Non-tender. No rebound or gaurding. Nl bowel sounds. Extremities: 1+ edema. in RLE. LLE with wound vac in place and wrapped in NAIMA bandage c/d/i Skin: No rahses, abrasions, or contusions. Nl cap refill. Psych: Nl attention. A&Ox3 Neuro: online facilitator II-XII intact. 5/5 strength. Sensation to light touch and pinprick intact. Internal Med - H&P Results - Labs CBC & Chem 7: 04/22/19 05:22 04/22/19 05:22 Labs: Short CBC 04/22/19 Range/Units 05:22 WBC 7.3 (4.3-11.1) K/mcL Hgb 8.5 L (12.9-16.9) g/dL Hct 27.0 L (37.5-50.1) % Plt Count 161 (140-400) K/mcL Neutrophils # 5.7 (1.6-8.9) K/mcL BMP 04/22/19 05:22 Sodium 138 Potassium 4.1 Chloride 106 Carbon Dioxide 23 BUN 29 H Creatinine 1.83 H Glucose 184 H Calcium 8.2 L Cardiac Enzymes 04/22/19 Range/Units 05:22 Troponin I 0.61 H* (< 0.04) ng/mL - Impressions ITS Impressions Chest X-Ray 04/22/19 04:51 IMPRESSION: Cardiomegaly with possible pulmonary edema. D/ / Linus Jeffery MD / Linus Jeffery MD Interpreting Provider: Linus Jeffery MD - Assessment and Plan (1) CHF exacerbation Current Visit: Yes Status: Acute Assessment and plan: Patient with hx of CAD s/p 3 stents on ASA/Plavix and HFrEF EF 35-40% on lasix presents with orthopnea in the setting of stable vitals, basilar crackles and LE edema on exam, BNP 974, and CXR with concerns for pulmonary edema. -Likely decompensated heart failure, and patient already has symptomatic improvement after 40 of IV Lasix -Reason for acute decompensation of heart failure may be related to worsening heart function in setting of an NSTEMI versus periprocedural hypervolemia following surgery last admission PLAN: - NSTEMI investigations per below - S/p Lasix 40mg IV x1. Will hold off on further lasix today given potential for LHC - Repeat echocardiogram - Strict i/o's and daily weights Qualifiers: Heart failure type: systolic Qualified Code(s): I50.23 - Acute on chronic systolic (congestive) heart failure (2) NSTEMI (non-ST elevated myocardial infarction) Current Visit: Yes Status: Acute Assessment and plan: Presented with trop of .61 in the setting of acute decompensated HF. Unclear if HF is leading to Type II demand ischemia or if NSTEMI is the primary process driving HF exacerbation. Cardiac history includes stent placed, per patient, around 2015. Patient was taken back to [facility] 01/13/18 and there is evidence of severe three-vessel disease. Patient has not since placed in RCA and LAD. There was a previous stent in circumflex with severe in-stent stenosis that could not be intervened upon. Has been on ASA/Plavix since then. - S/p ASA 324mg x1 - Continue home ASA/Plavix - Heparin ggt - Cardiology consulted - will make patient NPO for possible procedure - Metoprolol tartrate 25mg q6 (3) CAD in [place] artery Current Visit: No Status: Acute Assessment and plan: See above (4) Charcot foot due to diabetes mellitus Current Visit: No Status: Acute Assessment and plan: Patient was recently discharged from the hospital 04/20 after being admitted for a post-op foot infection and hematoma requiring surgical intervention by bettie holly. Was seen by ID and discharged with HH on IV antibiotics (cefepime and daptomycin). - Continue Cefepime and Daptomycin - Consult to wound nurse for wound vac management and dressing changes (5) Type 2 diabetes mellitus with foot ulcer Current Visit: No Status: Acute Assessment and plan: Glucose on admission of 184. 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
[2019-04-22] MEDS ORDERED: NON-FORMULARY MEDICATION 1 EACH EACH (Insulin Aspart Prot/Insuln Asp [Novolog Mix 70-30 Vi SQ SCH (09:00)
[2019-04-22] MEDS ORDERED: *HR* Dextrose 50 % in Water (Syg) 50 ML SYRINGE IVP PRN (09:12)
[2019-04-22] MEDS ORDERED: Dextrose Gel 15 GM/37.5 ML TUBE PO PRN ×2 (09:12)
[2019-04-22] MEDS ORDERED: D5% in Water 1,000 ML IVC PRN (09:12)
[2019-04-22] MEDS: Famotidine 20 MG TABLET PO SCH ×2 (09:53→21:16)
[2019-04-22] MEDS: amLODIPine 5 MG TABLET PO SCH (09:53)
[2019-04-22] MEDS: Insulin NPH/REG 70/30 100 UNIT/ML (x5UNIT) SQ SCH ×2 (09:54→17:21)
[2019-04-22] MEDS ORDERED: *HR* Promethazine 25 MG/ML VIAL IVP PRN (10:27)
[2019-04-22] MEDS ORDERED: Naloxone 0.4 MG/ML INJ IVP PRN (10:27)
[2019-04-22] MEDS ORDERED: Ondansetron ODT 4 MG TAB.RAPDIS SL PRN (10:27)
--- NOTE | 2019-04-22 11:02 | Cardiology Consult Note ---
<Geovanny Fields - Last Filed: 04/22/19 11:14> Date of Encounter: 04/22/19 Time of Encounter: 10:58 Assessment and Plan (1) Elevated troponin Current Visit: Yes Status: Acute Initial troponin 0.61--trend for total of 3. On heparin gtt. Type I vs Type II NSTEMI in setting of foot wound, CHF. ECG with T wave inversions in leads III and aVF, new compared to earlier this month. Known EF 35-40% 09/2018. Repeat TTE. Known CAD hx s/p PCI 01/2018. Consider C during stay pending clinical course. (2) CHF exacerbation Current Visit: Yes Status: Acute Acute on chronic systolic CHF exacerbation. Known EF 35-40%. BNP 974. CXR cardiomegaly with possibly pulmonary edema. Presented with orthopnea. Received one time dose of IV Lasix with symptom improvement. CKD. Recommend strict I/Os, Na and fluid restriction, daily weights. Qualifiers: Heart failure type: systolic Qualified Code(s): I50.23 - Acute on chronic systolic (congestive) heart failure (3) Acute electrocardiogram changes Current Visit: Yes Status: Acute ECG with T wave inversions in leads III and aVF, new compared to earlier this month. Initial troponin 0.61--trend for total of 3. On heparin gtt. Known EF 35-40% 09/2018. Repeat TTE. Known CAD hx s/p PCI 01/2018. Consider C during stay pending clinical course. (4) CAD in quechan artery Current Visit: No Status: Acute LHC 01/2018: There is 3V CAD. Patient had successful PTCA/Drug-Eluting Stent placement in the mid RCA and mid LAD. FFR Measurement: 0.73 (mid RCA), 0.83 (Prox RCA), iFR result 0.71 (Mid LAD). There is a previous stent in Mid Circumflex with severe in-stent stenosis that was not intervened on - [employer], unable to cannulate. Continue ASA, Statin, Plavix, BB, ARB. Plan as above. (5) Ischemic cardiomyopathy Current Visit: No Status: Acute EF 35-40% on TTE 09/2018. Continue BB and ARB. Repeat TTE. Discussion w patient/family: The assessment and plan as outlined above was discussed with the patient and/or family members who expressed understanding and agreement. All questions were answered. Thank you for involving us in the care of your patient. Please call with any questions. History of Present Illness Consult date: 04/22/19 Consult reason: elevated troponin, CHF Chief complaint: dyspnea History of present illness: Mr. Vargas is a 49 year old male with PMH of CAD s/p PCI on ASA/Plavix, HFrEF EF 35-40% on lasix 40mg qd, and IDDM Type II c/b charcot foot who presents with orthopnea. Patient was recently discharged from the hospital 04/20 after being admitted for a post-op foot infection and hematoma requiring surgical intervention by podiatry. Was seen by ID and discharged with HH on IV antibiotics (cefepime and daptomycin). Last night patient began to experience profound orthopnea when he was trying to sleep. Woke up gasping for air. Denies dyspnea otherwise and denies shortness of breath on exertion. Denies chest pain. Says he has not had chest pain since his previous LA. Initial troponin 0.61, BNP 974. Cardiology consulted for further recs. Prior CV testing: [facility] 01/2018: There is severe three vessel coronary artery disease. Patient had successful PTCA/Drug-Eluting Stent placement in the mid RCA and mid LAD. FFR Measurement: 0.73 (mid RCA), 0.83 (Prox RCA), iFR result 0.71 (Mid LAD). There is a previous stent in Mid Circumflex with severe in-stent stenosis that was not intervened on - [employer], unable to cannulate. TTE : LVEF 35-40% with segmental left ventricular systolic dysfunction. Mildly dilated left ventricle. Mild left ventricular diastolic dysfunction. Normal right ventricular structure and function. No significant valvular dysfunction. No evidence of pulmonary hypertension. Past Med Surg Social Fam HX - Past Medical History Medical history: cardiomyopathy, CHF, COPD, coronary artery disease, diabetes, GERD, hyperlipidemia, hypertension, myocardial infarction, renal disease, other Additional medical history: Charcot's joint of L foot, Lisfranc dislocation, antithrombotics/antiplatelets, ischemic cardiomyopathy Psychiatric history: no psych history - Past Surgical History Surgical History: angioplasty/stent, orthopedic, other Additional surgical history: left foot surgery, cardiac stents, LHC, L foot I&D - Social History Smoking Status: Former smoker Smokeless Tobacco Status: No Alcohol use: none Drug use: none - Family History Father Family Member Ethnicity: Non- Living Status: Hx Family Cardiac Disorders: Yes (HTN) Hx Family Endocrine Disorder: Yes (DM) Sister Family Member Ethnicity: Non- Living Status: Still Living Hx Family Endocrine Disorder: Yes (DM) Brother Family Member Ethnicity: Non- Living Status: Still Living Hx Family Cardiac Disorders: Yes (LA Age 50) Hx Family Endocrine Disorder: Yes (DM) Mother Family Member Ethnicity: Non- Living Status: Hx Family Cardiac Disorders: Yes (HD) Hx Family Endocrine Disorder: Yes (DM) Medications and Allergies Clopidogrel [Plavix] 75 mg PO QAM 02/18/19 [History] Furosemide [Lasix] 40 mg PO QAM 02/18/19 [History] Metformin HCl [Fortamet] 1,000 mg PO BID 02/18/19 [History] Metoprolol XL (24 HR) Succ [Toprol Xl] 100 mg PO QAM 02/18/19 [History] amLODIPine [Norvasc] 5 mg PO QAM 02/18/19 [History] Aspirin [Adult Aspirin] 81 mg PO DAILY 03/24/19 [History] Atorvastatin Calcium [Lipitor] 80 mg PO HS 03/24/19 [History] HYDROcodone/Acet 5/325 mg [[place] 5-325 mg] 1 tab PO Q6H PRN 3 Days #12 tab 03/24 [Rx] Ondansetron ODT [Zofran ODT] 4 mg SL Q8HR PRN #12 tab.rapdis 03/24/19 [Rx] raNITIdine HCl [Zantac] 150 mg PO BID 03/24/19 [History] Amitriptyline [Elavil] 25 mg PO HS 04/13/19 [History] Losartan Potassium [Cozaar] 100 mg PO QAM 04/13/19 [History] Cefepime HCl/D5w [Cefepime-Dextrose 2 gm/50 ml] 2 gm IV Q24H 14 Days #14 mls 04/20/19 [Rx] DAPTOmycin [Daptomycin] 500 mg IV DAILY 14 Days #14 vial 04/20/19 [Rx] Insulin Aspart Prot/Insuln Asp [Novolog Mix 70-30 Vial] 40 unit SQ BID 30 Days #24 vial 04/20/19 [Rx] Allergy/AdvReac Type Severity Reaction Status Date / Time No Known Allergies Allergy Verified 04/22/19 04:41 All Systems Review: The remainder of the systems were reviewed and are negative - Cardiovascular Cardiovascular: as per HPI, dyspnea at rest, orthopnea - Respiratory Respiratory: dyspnea Physical Examination Vital Signs, Last 4 Hours Temp Pulse Resp BP Pulse Ox 04/22/19 09:08 99.0 F 94 18 149/82 96 04/22/19 07:35 99 24 160/84 97 Vital Signs Temp Pulse Resp BP Pulse Ox 04/22/19 09:08 99.0 F 94 18 149/82 96 04/22/19 07:35 99 24 160/84 97 04/22/19 06:26 99 24 166/93 99 04/22/19 04:52 105 20 98 04/22/19 04:38 98.1 F 110 20 163/85 95 Intake and Output 04/21/19 04/22/19 04/22/19 23:59 07:59 15:59 Other: Weight 120.202 kg Patient Weight 04/22/19 23:59 Weight 120.202 kg General: Conversant, No Apparent Distress HEENT: Atraumatic, Normocephaly, Mucus Membranes Moist Neck: Normal carotid pulses Cardiac: Reg Rate and Rhythm, Normal S1 and S2, No Murmur Lungs: Other (diminished) Neuro: Alert and responsive, No focal deficits noted Abdomen: Soft, Non-Tender Skin: No rashes noted on visualized skin Musculoskeletal: No Chest Wall Tenderness Extremities: Other (LE wrapped, no significant edema) Results 04/22/19 05:22 04/22/19 05:22 Lab Results 04/22/19 04/22/19 04/22/19 05:22 05:22 05:22 WBC 7.3 Hgb 8.5 L Hct 27.0 L Plt Count 161 INR Sodium 138 Potassium 4.1 Chloride 106 Carbon Dioxide 23 BUN 29 H Creatinine 1.83 H Glucose 184 H Calcium 8.2 L Troponin I 0.61 H* B-Natriuretic Peptide 974 H 04/22/19 07:03 WBC Hgb Hct Plt Count INR 0.9 Sodium Potassium Chloride Carbon Dioxide BUN Creatinine Glucose Calcium Troponin I B-Natriuretic Peptide Short CBC 04/22/19 Range/Units 05:22 WBC 7.3 (4.3-11.1) K/mcL Hgb 8.5 L (12.9-16.9) g/dL Hct 27.0 L (37.5-50.1) % Plt Count 161 (140-400) K/mcL Neutrophils # 5.7 (1.6-8.9) K/mcL BMP 04/22/19 Range/Units 05:22 Sodium 138 (136-145) mEq/L Potassium 4.1 (3.5-5.1) mEq/L Chloride 106 (98-107) mEq/L Carbon Dioxide 23 (23-29) mEq/L BUN 29 H (6-20) mg/dL Creatinine 1.83 H (0.70-1.30) mg/dL Glucose 184 H (70-105) mg/dL Calcium 8.2 L (8.6-10.3) mg/dL Cardiac Enzymes 04/22/19 Range/Units 05:22 Troponin I 0.61 H* (< 0.04) ng/mL Impressions Chest X-Ray 04/22/19 04:51 IMPRESSION: Cardiomegaly with possible pulmonary edema. D/ / Linus Jeffery MD / Linus Jeffery MD Interpreting Provider: Linus Jeffery MD Active Medications Hydrocodone Bitart/Acetaminophen ([place] 5-325 Mg) 1 tab PO Q6H PRN PRN Reason: Pain Stop: 10/22/19 08:23 Amitriptyline HCl (Elavil) 25 mg PO [facility] Stop: 10/22/19 21:01 Amlodipine Besylate (Norvasc) 5 mg PO QAM [facility]; Protocol Stop: 10/22/19 09:01 Last Admin: 04/22/19 09:53 Dose: 5 mg Documented by: Aspirin (Aspirin Ec) 81 mg PO DAILY [facility] Stop: 10/23/19 09:01 Clopidogrel Bisulfate (Plavix) 75 mg PO QAM [facility] Stop: 10/22/19 09:01 Last Admin: 04/22/19 09:53 Dose: 75 mg Documented by: Dextrose/Water (Dextrose 50% (Syg)) 25 ml IVP AD PRN PRN Reason: Hypoglycemia Stop: 10/22/19 09:13 Famotidine (Pepcid) 20 mg PO BID [facility] Stop: 10/22/19 09:01 Last Admin: 04/22/19 09:53 Dose: 20 mg Documented by: Glucagon (Glucagen) 1 mg IM ONCE PRN PRN Reason: Hypoglycemia Stop: 10/22/19 09:13 Glucose (Gluctose) 15 gm PO ONCE PRN PRN Reason: Hypoglycemia Stop: 10/22/19 09:13 Glucose (Gluctose) 30 gm PO ONCE PRN PRN Reason: Hypoglycemia Stop: 10/22/19 09:13 Heparin Sodium (Porcine) (Heparin) 4,000 unit IVP Q6HR PRN PRN Reason: SEE COMMENTS Stop: 10/22/19 06:31 Heparin Sodium (Porcine) (Heparin) 2,000 unit IVP Q6H PRN PRN Reason: SEE COMMENTS Stop: 10/22/19 06:31 Heparin Sodium/Dextrose (Heparin 25,000 Unit/250 Ml D5w) 25,000 unit in 250 mls @ 9.977 mls/hr IVC .Q24H [facility]; Protocol Stop: 10/22/19 06:31 Last Admin: 04/22/19 07:29 Dose: 8.3 unit/kg/hr, 10 mls/hr Documented by: Dextrose (Dextrose 5%) 1,000 mls @ 100 mls/hr IVC .Q10H PRN PRN Reason: HYPOGLYCEMIA Stop: 10/22/19 09:13 Cefepime HCl 2,000 mg/ Sodium (Chloride) 100 mls @ 200 mls/hr IVPB Q24H [facility] Stop: 10/22/19 11:01 Daptomycin 500 mg/ Sodium (Chloride) 100 mls @ 200 mls/hr IVPB Q24H [facility] Stop: 10/22/19 11:01 Insulin Human Lispro (Humalog) 0 units SQ HS [facility]; Protocol Stop: 10/22/19 21:01 Insulin Human Lispro (Humalog) 0 units SQ TIDAC [facility]; Protocol Stop: 10/22/19 11:31 Insulin Isophane/Insulin Regular (Humulin 70/30 Vial) 40 unit SQ 0730,1630 [facility] Stop: 10/22/19 08:46 Last Admin: 04/22/19 09:54 Dose: 40 unit Documented by: Losartan Potassium (Cozaar) 100 mg PO QAM [facility] Stop: 10/22/19 09:01 Last Admin: 04/22/19 09:53 Dose: 100 mg Documented by: Metoprolol Tartrate (Lopressor) 25 mg PO Q6HR [facility] Stop: 10/22/19 12:01 Naloxone HCl (Narcan) 0.4 mg IVP Q2MPRN PRN PRN Reason: SEE COMMENTS Stop: 10/22/19 10:28 Ondansetron HCl (Zofran Odt) 4 mg SL Q8HR PRN PRN Reason: Nausea And Vomiting Stop: 10/22/19 10:28 Promethazine HCl (Phenergan) 12.5 mg IVP Q6HR PRN PRN Reason: Nausea And Vomiting Stop: 10/22/19 10:28 - Imaging and Cardiology Echo: report reviewed Cardiac cath: report reviewed - EKG Interpretation EKG results cardiology: personally reviewed (SR, ECG changes III, aVF) Consult Discharge Plan - Plan Referrals: Jose Rafael Morifn DO [Primary Care Provider] - <Anna Estrada - Last Filed: 04/22/19 13:49> Date of Encounter: 04/22/19 - Attending Attestation I examined this patient and my medical decision-making was reviewed with the DIVE SUPERINTENDENT. I agree with the documented findings, disposition and treatment plan as described. Mr. Vargas presents with elevated troponin in setting of acute on chronic systolic CHF exacerbation. Recommend diuresis. Echo pending. Trend troponin. Assessment and Plan Discussion w patient/family: The assessment and plan as outlined above was discussed with the patient and/or family members who expressed understanding and agreement. All questions were answered. Thank you for involving us in the care of your patient. Please call with any questions. History of Present Illness History of present illness: Mr. Vargas is a 49 year old male All Systems Review: The remainder of the systems were reviewed and are negative Physical Examination Vital Signs, Last 4 Hours Temp Pulse Resp BP Pulse Ox 04/22/19 11:45 99.6 F 87 16 147/80 96 Results 04/22/19 05:22 04/22/19 05:22 Lab Results 04/22/19 04/22/19 04/22/19 05:22 05:22 05:22 WBC 7.3 Hgb 8.5 L Hct 27.0 L Plt Count 161 INR Sodium 138 Potassium 4.1 Chloride 106 Carbon Dioxide 23 BUN 29 H Creatinine 1.83 H Glucose 184 H Calcium 8.2 L Troponin I 0.61 H* B-Natriuretic Peptide 974 H 04/22/19 07:03 WBC Hgb Hct Plt Count INR 0.9 Sodium Potassium Chloride Carbon Dioxide BUN Creatinine Glucose Calcium Troponin I B-Natriuretic Peptide
[2019-04-22] MEDS: DAPTOmycin 500 MG in 0.9 % Sodium Chloride 100 ML IVPB SCH (11:54)
[2019-04-22] MEDS: Insulin LISPRO 300 UNITS/3 ML VIAL SQ SCH ×3 (12:41→21:41)
[2019-04-22] MEDS: Cefepime HCl 2,000 MG in 0.9 % Sodium Chloride Mini Bag 100 ML IVPB SCH (12:44)
[2019-04-22] MEDS: *HR* Heparin 5,000 UNIT/ML VIAL IVP PRN ×2 (15:07→23:18)
[2019-04-22] MEDS ORDERED: Perflutren Lipid Microsphere 1.3 ML in 0.9 % Sodium Chloride 8.7 ML IVP ONE (15:22)
--- NOTE | 2019-04-22 17:33 | Electrocardiograph Report ---
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
--- NOTE | 2019-04-22 17:34 | Electrocardiograph Report ---
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
[2019-04-22 20:59] LABS: Hematocrit 25.2 % (37.5-50.1); Hemoglobin 8.1 g/dL (12.9-16.9)
[2019-04-22 21:14] LABS: % Iron Saturation 11 % (20-55); Iron 20 mcg/dL (65-175); Transferrin 135 mg/dL (203-362)
--- NOTE | 2019-04-23 01:25 | Event Note ---
Date of Encounter: 04/22/19 Time of Encounter: 19:19 Alerted by patient's nurse FREDIS Castillo the patient's significant other was very agitated stating she felt like nothing was being done for the patient and there was conflicting information. Patient is to be nothing by mouth at midnight for possible LHC in the a.m. Initial troponin 0.61 with second at 4.09. SO had mentioned to the nurse that the pt. be transferred so he wouldn't have an TN. Went to see the pt. and SO. SO explained her frustrations and that there was no clear plan of care. SO was concerned about the pts. Echocardiogram results. In reviewing the pts. chart, I explained the Echo results and the probable need for LHC in the morning. On exam, the pt. denied any CP or SOB. SO and pt. expressed understanding and agreement to our discussion and all questions/concerns were addressed and answered. Nurse instructed to continue monitoring the patient closely and alert me immediately of any adverse changes, additional questions or concerns, or onset of CP/SOB
[2019-04-23 05:23] LABS: Hematocrit 24.7 % (37.5-50.1); Hemoglobin 7.8 g/dL (12.9-16.9); Mean Corpuscular HGB Conc 31.6 g/dL (31.6-35.5); Mean Corpuscular Hemoglobin 28.4 pg (28.0-33.3); Mean Corpuscular Volume 89.8 fL (83.0-100.0); Mean Platelet Volume 12.6 fL (9.4-12.4); Platelet Count 130 K/mcL (140-400); Red Blood Count 2.75 M/mcL (4.19-5.50); Red Cell Distribution Width 14.6 % (11.5-14.5); White Blood Count 5.7 K/mcL (4.3-11.1)
[2019-04-23] MEDS: Heparin 25,000 UNIT/250 ML D5W 25,000 UNIT/250 ML IV.SOLN IVC SCH ×2 (05:36→21:42)
[2019-04-23 05:43] LABS: Calcium 7.9 mg/dL (8.6-10.3); Potassium 3.6 mEq/L (3.5-5.1)
[2019-04-23] MEDS: Insulin NPH/REG 70/30 100 UNIT/ML (x5UNIT) SQ SCH ×2 (08:49→17:17)
[2019-04-23] MEDS: Insulin LISPRO 300 UNITS/3 ML VIAL SQ SCH ×4 (08:49→20:28)
[2019-04-23] MEDS: Famotidine 20 MG TABLET PO SCH ×2 (08:50→20:27)
[2019-04-23] MEDS: amLODIPine 5 MG TABLET PO SCH ×2 (08:50→09:35)
[2019-04-23] MEDS: Aspirin Enteric Coated 81 MG Tablet PO SCH ×2 (08:52→09:35)
--- NOTE | 2019-04-23 09:52 | Cardiology Progress Note ---
Date of Encounter: 04/23/19 Time of Encounter: 09:47 Assessment and Plan (1) NSTEMI (non-ST elevated myocardial infarction) Current Visit: Yes Status: Acute Troponin 0.61, 4.09, 1.10. On heparin gtt. Continue ASA, Plavix, Statin, BB, ARB. ECG with T wave inversions in leads III and aVF, new compared to earlier this month. Known CAD hx s/p PCI 01/2018. Known EF 35-40% 09/2018. Repeat TTE EF 40%, unchanged. Global LV systolic dysfunction. Moderate LVDD. RV was not well visualized. Grossly, function is normal. No evidence of phtn. No significant valvular dysfunction. There is a small inferior and inferolateral pericardial effusion present. No tamponade. Ideally, recommend LHC. R/B/A discussed. However, HGB 7.8. HGB has been 7-8 range since 04/09, but prior to that was ~10 range. No recent GI work-up. Given need for LHC, possible PCI warranting DAPT, recommend GI evaluation prior to LHC. Will continue to follow. CKD at baseline. Plan discussed at length with pt and . Pt would be agreeable to change code status to full code for LHC. (2) CHF exacerbation Current Visit: Yes Status: Acute Acute on chronic systolic CHF exacerbation. Known EF 35-40%. BNP 974. CXR cardiomegaly with possibly pulmonary edema. Presented with orthopnea. Received one time dose of IV Lasix with symptom improvement. CKD. Recommend strict I/Os, Na and fluid restriction, daily weights. Qualifiers: Heart failure type: systolic Qualified Code(s): I50.23 - Acute on chronic systolic (congestive) heart failure (3) CAD in syc[place] artery Current Visit: No Status: Acute LHC 01/2018: There is 3V CAD. Patient had successful PTCA/Drug-Eluting Stent placement in the mid RCA and mid LAD. FFR Measurement: 0.73 (mid RCA), 0.83 (Prox RCA), iFR result 0.71 (Mid LAD). 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 Continue ASA, Statin, Plavix, BB, ARB. Plan as above. (4) Ischemic cardiomyopathy Current Visit: No Status: Acute EF 35-40% on TTE 09/2018. Repeat TTE EF 40%, unchanged. Continue BB and ARB. (5) Anemia Current Visit: Yes Status: Acute HGB 7.8 today. 1 unit PRBC ordered given setting of NSTEMI. Recommend keep HGB >8. Discussed with hospitalist, plan for GI consult and work-up. Qualifiers: Anemia type: unspecified type Qualified Code(s): D64.9 - Anemia, unspecified Discussion w patient/family: The assessment and plan as outlined above was discussed with the patient and/or family members who expressed understanding and agreement. All questions were answered. Thank you for involving us in the care of your patient. Please call with any questions. I will discuss all the above with Dr. Estrada and make changes as necessary. Subjective Principal diagnosis: NSTEMI Interval history: Denies chest pain. Reports episode of dyspnea this AM. Objective Vital Signs, Last 4 Hours Temp Pulse Resp BP Pulse Ox 04/23/19 09:33 100.2 F H 107 18 182/66 98 04/23/19 07:37 99.5 F 110 19 190/87 95 Vital Signs Temp Pulse Resp BP Pulse Ox 04/23/19 09:33 100.2 F H 107 18 182/66 98 04/23/19 07:37 99.5 F 110 19 190/87 95 04/23/19 04:45 98.7 F 92 16 166/83 94 04/22/19 23:39 97.4 F L 85 14 155/80 97 04/22/19 19:20 98.9 F 81 14 128/63 98 04/22/19 17:26 106/71 04/22/19 16:34 99.8 F H 89 18 111/67 96 04/22/19 11:45 99.6 F 87 16 147/80 96 Intake and Output 04/22/19 04/23/19 04/23/19 23:59 07:59 15:59 Intake Total 174 / 450 Balance 174 / 450 Intake: IV Fluids 174 / 450 Heparin 25,000 UNIT/250 ML D5W 174 / 250 25,000 unit In 250 ml @ 8.3 UNIT/KG/HR 9.977 mls/hr IVC . Q24H JORDY Rx#:[id number] Oral Other: Blood Glucose* 156 227 General: Conversant, No Apparent Distress HEENT: Atraumatic, Normocephaly, Mucus Membranes Moist Neck: Normal carotid pulses Cardiac: Reg Rate and Rhythm, Normal S1 and S2, No Murmur Lungs: Other (diminished) Neuro: Alert and responsive, No focal deficits noted Abdomen: Soft, Non-Tender Skin: No rashes noted on visualized skin Musculoskeletal: No Chest Wall Tenderness Extremities: Other (LE wrapped) Results 04/23/19 05:00 04/23/19 05:00 Lab Results 04/22/19 04/22/19 04/23/19 16:27 20:36 05:00 WBC 5.7 Hgb 8.1 L 7.8 L Hct 25.2 L 24.7 L Plt Count 130 L Sodium Potassium Chloride Carbon Dioxide BUN Creatinine Glucose Calcium Troponin I 4.09 H* 04/23/19 04/23/19 05:00 08:35 WBC Hgb Hct Plt Count Sodium 138 Potassium 3.6 Chloride 106 Carbon Dioxide 23 BUN 29 H Creatinine 1.72 H Glucose 227 H Calcium 7.9 L Troponin I 1.10 H* Short CBC 04/23/19 04/22/19 Range/Units 05:00 20:36 WBC 5.7 (4.3-11.1) K/mcL Hgb 7.8 L 8.1 L (12.9-16.9) g/dL Hct 24.7 L 25.2 L (37.5-50.1) % Plt Count 130 L (140-400) K/mcL BMP 04/23/19 Range/Units 05:00 Sodium 138 (136-145) mEq/L Potassium 3.6 (3.5-5.1) mEq/L Chloride 106 (98-107) mEq/L Carbon Dioxide 23 (23-29) mEq/L BUN 29 H (6-20) mg/dL Creatinine 1.72 H (0.70-1.30) mg/dL Glucose 227 H (70-105) mg/dL Calcium 7.9 L (8.6-10.3) mg/dL Cardiac Enzymes 04/23/19 04/22/19 Range/Units 08:35 16:27 Troponin I 1.10 H* 4.09 H* (< 0.04) ng/mL Impressions Echocardiogram 04/22/19 08:36 Impressions: Technically sub-optimal due to poor echocardiographic windows. LVEF 40%. Global left ventricular systolic dysfunction. Moderate left ventricular diastolic dysfunction. Right ventricle was not well visualized. Grossly, function is normal. No evidence of pulmonary hypertension. No significant valvular dysfunction. There is a small inferior and inferolateral pericardial effusion present. No tamponade. Left Ventricular Wall Motion: Rest Echo Findings The apex, apical inferior, mid inferior, basal inferior, apical anterior, mid anterior, basal anterior, apical septal, mid inferior septal, basal inferior septal, apical lateral, mid anterior lateral, basal anterior lateral, mid anterior septal, mid inferior lateral, basal anterior septal and basal inferior lateral pisano were hypokinetic. Findings: Study Quality * Technically sub-optimal due to poor echocardiographic windows. ECG Findings * Normal sinus rhythm. Left Ventricle * LVEF 40%. * Global left ventricular systolic dysfunction. * Moderate left ventricular diastolic dysfunction. Right Ventricle * Right ventricle was not well visualized. Grossly, function is normal. Left Atrium * Mildly dilated left atrium. Right Atrium * Right atrium is not well visualized. Interatrial Septum * Interatrial septum not well evaluated. Aortic Valve * Aortic valve not well visualized. * No aortic stenosis. * No aortic regurgitation. Mitral Valve * Normal mitral valve structure and function. * No mitral regurgitation. * No mitral stenosis. Tricuspid Valve * Normal tricuspid valve structure and function. * Trace tricuspid regurgitation. * No evidence of pulmonary hypertension. Pulmonic Valve * Pulmonic valve not well visualized. * No pulmonic regurgitation. Aorta * Normally sized aortic root. Pericardium * There is a small inferior and inferolateral pericardial effusion present. No tamponade. IVC * Normal IVC dimensions and inspiratory collapse. Pulmonary Artery * Pulmonary artery not well visualized. Active Medications Hydrocodone Bitart/Acetaminophen ([place] 5-325 Mg) 1 tab PO Q6H PRN PRN Reason: Pain Stop: 10/22/19 08:23 Amitriptyline HCl (Elavil) 25 mg PO HS [facility] Stop: 10/22/19 21:01 Last Admin: 04/22/19 21:16 Dose: 25 mg Documented by: Amlodipine Besylate ([facility]asc) [facility] [place] Protocol Stop: 10/22/19 09:01 Last Admin: 04/23/19 09:35 Dose: 5 mg Documented by: Aspirin (Aspirin Ec) 81 mg PO DAILY [facility] Stop: 10/23/19 09:01 Last Admin: 04/23/19 09:35 Dose: 81 mg Documented by: Clopidogrel Bisulfate (Plavix) 75 mg PO QAM [facility] Stop: 10/22/19 09:01 Last Admin: 04/23/19 09:35 Dose: 75 mg Documented by: Dextrose/Water (Dextrose 50% (Syg)) 25 ml IVP AD PRN PRN Reason: Hypoglycemia Stop: 10/22/19 09:13 Famotidine (Pepcid) 20 mg PO BID [facility] Stop: 10/22/19 09:01 Last Admin: 04/23/19 08:50 Dose: Not Given Documented by: Glucagon (Glucagen) 1 mg IM ONCE PRN PRN Reason: Hypoglycemia Stop: 10/22/19 09:13 Glucose (Gluctose) 15 gm PO ONCE PRN PRN Reason: Hypoglycemia Stop: 10/22/19 09:13 Glucose (Gluctose) 30 gm PO ONCE PRN PRN Reason: Hypoglycemia Stop: 10/22/19 09:13 Heparin Sodium (Porcine) (Heparin) 4,000 unit IVP Q6HR PRN PRN Reason: SEE COMMENTS Stop: 10/22/19 06:31 Heparin Sodium (Porcine) (Heparin) 2,000 unit IVP Q6H PRN PRN Reason: SEE COMMENTS Stop: 10/22/19 06:31 Last Admin: 04/22/19 23:18 Dose: 2,000 unit Documented by: Heparin Sodium/Dextrose (Heparin 25,000 Unit/250 Ml D5w) 25,000 unit in 250 mls @ 9.977 mls/hr IVC .Q24H [facility]; Protocol Stop: 10/22/19 06:31 Last Admin: 04/23/19 05:36 Dose: 13.65 unit/kg/hr, 16.4 mls/hr Documented by: Dextrose (Dextrose 5%) 1,000 mls @ 100 mls/hr IVC .Q10H PRN PRN Reason: HYPOGLYCEMIA Stop: 10/22/19 09:13 Cefepime HCl 2,000 mg/ Sodium (Chloride) 100 mls @ 200 mls/hr IVPB Q24H [facility] Stop: 10/22/19 11:01 Last Infusion: 04/22/19 13:40 Dose: Infused Documented by: Daptomycin 500 mg/ Sodium (Chloride) 100 mls @ 200 mls/hr IVPB Q24H [facility] Stop: 10/22/19 11:01 Last Infusion: 04/22/19 12:30 Dose: Infused Documented by: Insulin Human Lispro (Humalog) 0 units SQ HS [facility]; Protocol Stop: 10/22/19 21:01 Last Admin: 04/22/19 21:41 Dose: Not Given Documented by: Insulin Human Lispro (Humalog) 0 units SQ TIDAC [facility]; Protocol Stop: 10/22/19 11:31 Last Admin: 04/23/19 08:49 Dose: Not Given Documented by: Insulin Isophane/Insulin Regular (Humulin 70/30 Vial) 40 unit SQ 0730,1630 [facility] Stop: 10/22/19 08:46 Last Admin: 04/23/19 08:49 Dose: Not Given Documented by: Losartan Potassium (Cozaar) 100 mg PO QAM [facility] Stop: 10/22/19 09:01 Last Admin: 04/23/19 09:35 Dose: 100 mg Documented by: Metoprolol Tartrate (Lopressor) 25 mg PO Q6HR [facility] Stop: 10/22/19 12:01 Last Admin: 04/23/19 05:49 Dose: 25 mg Documented by: Naloxone HCl (Narcan) 0.4 mg IVP Q2MPRN PRN PRN Reason: SEE COMMENTS Stop: 10/22/19 10:28 Ondansetron HCl (Zofran Odt) 4 mg SL Q8HR PRN PRN Reason: Nausea And Vomiting Stop: 10/22/19 10:28 Promethazine HCl (Phenergan) 12.5 mg IVP Q6HR PRN PRN Reason: Nausea And Vomiting Stop: 10/22/19 10:28 - Imaging and Cardiology Echo: report reviewed - EKG Interpretation EKG results cardiology: other (12 hr tele AVG HR 108, Sinus tach) Consult Discharge Plan - Plan Referrals: Jose Rafael Morfin DO [Primary Care Provider] -
[2019-04-23] MEDS: DAPTOmycin 500 MG in 0.9 % Sodium Chloride 100 ML IVPB SCH (10:14)
[2019-04-23] MEDS ORDERED: 0.9 % Sodium Chloride 250 ML ONE (10:30)
[2019-04-23] MEDS: Cefepime HCl 2,000 MG in 0.9 % Sodium Chloride Mini Bag 100 ML IVPB SCH (10:33)
[2019-04-23] MEDS ORDERED: Acetaminophen 325 MG TABLET PO ONE (11:16)
--- NOTE | 2019-04-23 11:42 | Acute Care Surgery H&P ---
Date of Encounter: 04/23/19 Time of Encounter: 11:33 History of Present Illness Chief complaint: anemia HPI: 49 year old male with PMH of CAD s/p PCI on ASA/Plavix, EF 35-40% on lasix 40mg qd, DM II who was admitted for orthopnea and dyspnea. Due to these symptoms the patient presented to [facility] for further evaluation. the patient was diagnosed with an NSTEMI with plans for a catheterization. However the patient has an anemia (hgb ~ 7, normal is closer to 10). Cardiology would like endoscopic evaluation prior to catheterization. The patient is currently on a heparin gtt; Of note the patient does not report any alarm symptoms such as bright red blood per rectum, dark tarry stools, unintentional weight loss, unusual or explainable fatigue, no change in bowel habits or caliber. In addition the patient does not report a family history of colon cancer nor any personal history of PUD; He has never had a colonoscopy. Past Med Surg Social Fam HX - Past Medical History Medical history: cardiomyopathy, CHF, COPD, coronary artery disease, diabetes, GERD, hyperlipidemia, hypertension, myocardial infarction, renal disease, other Additional medical history: Charcot's joint of L foot, Lisfranc dislocation, antithrombotics/antiplatelets, ischemic cardiomyopathy Psychiatric history: no psych history - Past Surgical History Surgical History: angioplasty/stent, orthopedic, other Additional surgical history: left foot surgery, cardiac stents, LHC, L foot I&D - Social History Smoking Status: Former smoker Smokeless Tobacco Status: No Alcohol use: none Drug use: none - Family History Father Family Member Ethnicity: Non- Living Status: Hx Family Cardiac Disorders: Yes (HTN) Hx Family Endocrine Disorder: Yes (DM) Sister Family Member Ethnicity: Non- Living Status: Still Living Hx Family Endocrine Disorder: Yes (DM) Brother Family Member Ethnicity: Non- Living Status: Still Living Hx Family Cardiac Disorders: Yes ([place] Age 50) Hx Family Endocrine Disorder: Yes (DM) Mother Family Member Ethnicity: Non- Living Status: Hx Family Cardiac Disorders: Yes (HD) Hx Family Endocrine Disorder: Yes (DM) Medications and Allergies Clopidogrel [Plavix] 75 mg PO QAM 02/18/19 [History] Furosemide [Lasix] 40 mg PO QAM 02/18/19 [History] Metformin HCl [Fortamet] 1,000 mg PO BID 02/18/19 [History] Metoprolol XL (24 HR) Succ [Toprol Xl] 100 mg PO QAM 02/18/19 [History] amLODIPine [Norvasc] 5 mg PO QAM 02/18/19 [History] Aspirin [Adult Aspirin] 81 mg PO DAILY 03/24/19 [History] Atorvastatin Calcium [Lipitor] 80 mg PO HS 03/24/19 [History] HYDROcodone/Acet 5/325 mg [[place] 5-325 mg] 1 tab PO Q6H PRN 3 Days #12 tab 03/24/19 [Rx] Ondansetron ODT [Zofran ODT] 4 mg SL Q8HR PRN #12 tab.rapdis 03/24/19 [Rx] raNITIdine HCl [Zantac] 150 mg PO BID 03/24/19 [History] Amitriptyline [Elavil] 25 mg PO HS 04/13/19 [History] Losartan Potassium [Cozaar] 100 mg PO QAM 04/13/19 [History] Cefepime HCl/D5w [Cefepime-Dextrose 2 gm/50 ml] 2 gm IV Q24H 14 Days #14 mls 05/29 [Rx] DAPTOmycin [Daptomycin] 500 mg IV DAILY 14 Days #14 vial 04/20/19 [Rx] Insulin Aspart Prot/Insuln Asp [Novolog Mix 70-30 Vial] 40 unit SQ BID 30 Days #24 vial 04/20/19 [Rx] Allergy/AdvReac Type Severity Reaction Status Date / Time No Known Allergies Allergy Verified 04/22/19 04:41 Review of Systems All systems PM: The remainder of the systems were reviewed and are negative General Surgery Exam Initial Vital Signs Temp Pulse Resp BP Pulse Ox 98.1 F 110 20 163/85 95 04/22/19 04:38 04/22/19 04:38 04/22/19 04:38 04/22/19 04:38 04/22/19 04:38 Results - Labs 04/23/19 05:00 04/23/19 05:00 Abnormal lab results RBC 2.75 M/mcL (4.19-5.50) L 04/23/19 05:00 Hgb 7.8 g/dL (12.9-16.9) L 04/23/19 05:00 Hct 24.7 % (37.5-50.1) L 04/23/19 05:00 MCHC 31.5 g/dL (31.6-35.5) L 04/22/19 05:22 RDW 14.6 % (11.5-14.5) H 04/23/19 05:00 Plt Count 130 K/mcL (140-400) L 04/23/19 05:00 MPV 12.6 fL (9.4-12.4) H 04/23/19 05:00 Heparin Anti-Xa, Unfract 0.12 IU/mL (0.30-0.70) L 04/23/19 05:00 BUN 29 mg/dL (6-20) H 04/23/19 05:00 Creatinine 1.72 mg/dL (0.70-1.30) H 04/23/19 05:00 Est GFR ( Amer) 51 (> 60) L 04/23/19 05:00 Est GFR (Non-Af Amer) 42 (> 60) L 04/23/19 05:00 Glucose 227 mg/dL (70-105) H 04/23/19 05:00 POC Glucose 156 mg/dL (70-99) H 04/22/19 21:11 Calcium 7.9 mg/dL (8.6-10.3) L 04/23/19 05:00 Iron 20 mcg/dL (65-175) L 04/22/19 20:36 % Saturation 11 % (20-55) L 04/22/19 20:36 Transferrin 135 mg/dL (203-362) L 04/22/19 20:36 Troponin I 1.10 ng/mL (< 0.04) H* 04/23/19 08:35 B-Natriuretic Peptide 974 pg/mL (Less than 100) H 04/22/19 05:22 Crossmatch See Detail 04/23/19 08:40 Diabetes panel 04/23/19 Range/Units 05:00 Sodium 138 (136-145) mEq/L Potassium 3.6 (3.5-5.1) mEq/L Chloride 106 (98-107) mEq/L Carbon Dioxide 23 (23-29) mEq/L BUN 29 H (6-20) mg/dL Creatinine 1.72 H (0.70-1.30) mg/dL Glucose 227 H (70-105) mg/dL Calcium 7.9 L (8.6-10.3) mg/dL Calcium panel 04/23/19 Range/Units 05:00 Calcium 7.9 L (8.6-10.3) mg/dL Pituitary panel 04/23/19 Range/Units 05:00 Sodium 138 (136-145) mEq/L Potassium 3.6 (3.5-5.1) mEq/L Chloride 106 (98-107) mEq/L Carbon Dioxide 23 (23-29) mEq/L BUN 29 H (6-20) mg/dL Creatinine 1.72 H (0.70-1.30) mg/dL Glucose 227 H (70-105) mg/dL Calcium 7.9 L (8.6-10.3) mg/dL Adrenal panel 04/23/19 Range/Units 05:00 Sodium 138 (136-145) mEq/L Potassium 3.6 (3.5-5.1) mEq/L Chloride 106 (98-107) mEq/L Carbon Dioxide 23 (23-29) mEq/L BUN 29 H (6-20) mg/dL Creatinine 1.72 H (0.70-1.30) mg/dL Glucose 227 H (70-105) mg/dL Calcium 7.9 L (8.6-10.3) mg/dL All other labs normal.
--- NOTE | 2019-04-23 11:52 | AcuteCare Surgery Consult Note ---
Date of Encounter: 04/23/19 Time of Encounter: 11:50 Assessment and Plan (1) Anemia Current Visit: Yes Status: Acute 49M admitted with NSTEMI, in need of a cardiac catheterization but with anemia of unspecified type; will need endoscopic evaluation of GI tract prior to catheterization; good change his anemia is related to kidney function vs chronic disease vs Gi source; will plan for EGD, colonoscopy; but will discuss with cardiology to assess the urgency as they plan for catheterization early to mid next week; awaiting their call to my page cont with cares per primary trend h/h transfuse as needed Qualifiers: Anemia type: unspecified type Qualified Code(s): D64.9 - Anemia, unspecified History of Present Illness Consult date: 04/23/19 Reason for consult: other (anemia) History of present illness: 49 year old male with PMH of CAD s/p PCI on ASA/Plavix, EF 35-40% on lasix 40mg qd, DM II who was admitted for orthopnea and dyspnea. Due to these symptoms the patient presented to [facility] for further evaluation. the patient was diagnosed with an NSTEMI with plans for a catheterization. However the patient has an anemia (hgb ~ 7.8, normal is closer to 10). Cardiology would like endoscopic evaluation prior to catheterization. The patient is currently on a heparin gtt; Of note the patient does not report any alarm symptoms such as bright red blood per rectum, dark tarry stools, unintentional weight loss, unusual or explainable fatigue, no change in bowel habits or caliber. In addition the patient does not report a family history of colon cancer nor any personal history of PUD; He has never had a colonoscopy. Past Med Surg Social Fam HX - Past Medical History Medical history: cardiomyopathy, CHF, COPD, coronary artery disease, diabetes, GERD, hyperlipidemia, hypertension, myocardial infarction, renal disease, other Additional medical history: Charcot's joint of L foot, Lisfranc dislocation, antithrombotics/antiplatelets, ischemic cardiomyopathy Psychiatric history: no psych history - Past Surgical History Surgical History: angioplasty/stent, orthopedic, other Additional surgical history: left foot surgery, cardiac stents, LHC, L foot I&D - Social History Smoking Status: Former smoker Smokeless Tobacco Status: No Alcohol use: none Drug use: none - Family History Father Family Member Ethnicity: Non- Living Status: Hx Family Cardiac Disorders: Yes (HTN) Hx Family Endocrine Disorder: Yes (DM) Sister Family Member Ethnicity: Non- Living Status: Still Living Hx Family Endocrine Disorder: Yes (DM) Brother Family Member Ethnicity: Non- Living Status: Still Living Hx Family Cardiac Disorders: Yes ([place] Age 50) Hx Family Endocrine Disorder: Yes (DM) Mother Family Member Ethnicity: Non- Living Status: Hx Family Cardiac Disorders: Yes (HD) Hx Family Endocrine Disorder: Yes (DM) Medications and Allergies Clopidogrel [Plavix] 75 mg PO QAM 02/18/19 [History] Furosemide [Lasix] 40 mg PO QAM 02/18/19 [History] Metformin HCl [Fortamet] 1,000 mg PO BID 02/18/19 [History] Metoprolol XL (24 HR) Succ [Toprol Xl] 100 mg PO QAM 02/18/19 [History] amLODIPine [Norvasc] 5 mg PO QAM 02/18/19 [History] Aspirin [Adult Aspirin] 81 mg PO DAILY 03/24/19 [History] Atorvastatin Calcium [Lipitor] 80 mg PO HS 03/24/19 [History] HYDROcodone/Acet 5/325 mg [[place] 5-325 mg] 1 tab PO Q6H PRN 3 Days #12 tab 03/24/19 [Rx] Ondansetron ODT [Zofran ODT] 4 mg SL Q8HR PRN #12 tab.rapdis 03/24/19 [Rx] raNITIdine HCl [Zantac] 150 mg PO BID 03/24/19 [History] Amitriptyline [Elavil] 25 mg PO HS 04/13/19 [History] Losartan Potassium [Cozaar] 100 mg PO QAM 04/13/19 [History] Cefepime HCl/D5w [Cefepime-Dextrose 2 gm/50 ml] 2 gm IV Q24H 14 Days #14 mls 04/20/19 [Rx] DAPTOmycin [Daptomycin] 500 mg IV DAILY 14 Days #14 vial 04/20/19 [Rx] Insulin Aspart Prot/Insuln Asp [Novolog Mix 70-30 Vial] 40 unit SQ BID 30 Days #24 vial 04/20/19 [Rx] Allergy/AdvReac Type Severity Reaction Status Date / Time No Known Allergies Allergy Verified 04/22/19 04:41 Review of Systems All systems PM: 12 point ROS negative besides HPI findings General Surgery Exam Initial Vital Signs Temp Pulse Resp BP Pulse Ox 98.1 F 110 20 163/85 95 04/22/19 04:38 04/22/19 04:38 04/22/19 04:38 04/22/19 04:38 04/22/19 04:38 - General physical appearance no distress - Eyes PERRL, normal ocular movement - ENT normocephalic - Neck trachea midline, no lymphadectomy - Respiratory normal expansion, other (tripoding) - Cardiovascular Cardiovascular exam: Present: RRR - Abdomen Abdomen general surgery: Present: soft, non tender - Integumentary Integumentary general surgery: Present: warm and dry, no abnormal pigmentation - Neurologic Present: CN 2-12 grossly intact - Musculoskeletal Present: other (tripoding) - Psychiatric Psychiatric general surgery: Present: A&Ox3 Exam Initial Vital Signs Temp Pulse Resp BP Pulse Ox 98.1 F 110 20 163/85 95 04/22/19 04:38 04/22/19 04:38 04/22/19 04:38 04/22/19 04:38 04/22/19 04:38 Results - Labs 04/23/19 05:00 04/23/19 05:00 Abnormal lab results RBC 2.75 M/mcL (4.19-5.50) L 04/23/19 05:00 Hgb 7.8 g/dL (12.9-16.9) L 04/23/19 05:00 Hct 24.7 % (37.5-50.1) L 04/23/19 05:00 MCHC 31.5 g/dL (31.6-35.5) L 04/22/19 05:22 RDW 14.6 % (11.5-14.5) H 04/23/19 05:00 Plt Count 130 K/mcL (140-400) L 04/23/19 05:00 MPV 12.6 fL (9.4-12.4) H 04/23/19 05:00 Heparin Anti-Xa, Unfract 0.12 IU/mL (0.30-0.70) L 04/23/19 05:00 BUN 29 mg/dL (6-20) H 04/23/19 05:00 Creatinine 1.72 mg/dL (0.70-1.30) H 04/23/19 05:00 Est GFR ( Amer) 51 (> 60) L 04/23/19 05:00 Est GFR (Non-Af Amer) 42 (> 60) L 04/23/19 05:00 Glucose 227 mg/dL (70-105) H 04/23/19 05:00 POC Glucose 156 mg/dL (70-99) H 04/22/19 21:11 Calcium 7.9 mg/dL (8.6-10.3) L 04/23/19 05:00 Iron 20 mcg/dL (65-175) L 04/22/19 20:36 % Saturation 11 % (20-55) L 04/22/19 20:36 Transferrin 135 mg/dL (203-362) L 04/22/19 20:36 Troponin I 1.10 ng/mL (< 0.04) H* 04/23/19 08:35 B-Natriuretic Peptide 974 pg/mL (Less than 100) H 04/22/19 05:22 Crossmatch See Detail 04/23/19 08:40 Diabetes panel 04/23/19 Range/Units 05:00 Sodium 138 (136-145) mEq/L Potassium 3.6 (3.5-5.1) mEq/L Chloride 106 (98-107) mEq/L Carbon Dioxide 23 (23-29) mEq/L BUN 29 H (6-20) mg/dL Creatinine 1.72 H (0.70-1.30) mg/dL Glucose 227 H (70-105) mg/dL Calcium 7.9 L (8.6-10.3) mg/dL Calcium panel 04/23/19 Range/Units 05:00 Calcium 7.9 L (8.6-10.3) mg/dL Pituitary panel 04/23/19 Range/Units 05:00 Sodium 138 (136-145) mEq/L Potassium 3.6 (3.5-5.1) mEq/L Chloride 106 (98-107) mEq/L Carbon Dioxide 23 (23-29) mEq/L BUN 29 H (6-20) mg/dL Creatinine 1.72 H (0.70-1.30) mg/dL Glucose 227 H (70-105) mg/dL Calcium 7.9 L (8.6-10.3) mg/dL Adrenal panel 04/23/19 Range/Units 05:00 Sodium 138 (136-145) mEq/L Potassium 3.6 (3.5-5.1) mEq/L Chloride 106 (98-107) mEq/L Carbon Dioxide 23 (23-29) mEq/L BUN 29 H (6-20) mg/dL Creatinine 1.72 H (0.70-1.30) mg/dL Glucose 227 H (70-105) mg/dL Calcium 7.9 L (8.6-10.3) mg/dL All other labs normal. Consult Discharge Plan - Plan Referrals: Jose Rafael Morfin, [Primary Care Provider] -
--- NOTE | 2019-04-23 13:48 | Internal Med Progress Note ---
Hospitalist Progress Note - Encounter Date of Encounter: 04/23/19 Time of Encounter: 13:46 - Subjective Interval History: Patient seen and examined. Patient has no acute complaints today. Troponin increased to 4.09. Hb dropped to 7.8. Patient states he has had no chest pain, SOB, dizziness since admission. - Exam Vitals: Temp Pulse Resp BP Pulse Ox 100.2 F H 90 18 137/66 99 04/23/19 13:15 04/23/19 13:15 04/23/19 13:15 04/23/19 13:15 04/23/19 13:15 Exam: General: Ill-appearing and in no acute distress HEENT: No erythema of posterior pharynx. No exudates. Lymphatics: No mandibular or cervical lymphadenopathy Cardiovascular: RRR. No murmurs. No chest wall tenderness. Lungs: Basilar crackles. Regular chest rise. Abdomen: Non-tender. No rebound or gaurding. Nl bowel sounds. Extremities: 1+ edema. in RLE. LLE with wound vac in place and wrapped in NAIMA bandage c/d/i Skin: No rashes, abrasions, or contusions. Nl cap refill. Psych: Nl attention. A&Ox3 Neuro: process engineering technician II-XII intact. 5/5 strength. Sensation to light touch and pinprick intact. - Assessment and Plan (1) NSTEMI (non-ST elevated myocardial infarction) Current Visit: Yes Status: Acute Assessment and Plan: Patient presenting with orthopnea in setting of CAD s/p 3 stents, HFrEF EF 35- 40% Troponin elevation from 0.61 to 4.09 EKG showing new T wave inversions Hb down to 7.8 Plan: Cardiology on board: plan for cath after GI evaluation for anemia Continue ASA, statin, plavix, BB, ARB (2) Anemia Current Visit: Yes Status: Acute Assessment and Plan: Patient's Hb 7.8; baseline may be closer to 10 No reported blood in stool Plan: Acute surgery consulted for colonoscopy and endoscopy to rule out GI bleed prior to cath Patient transfused 1 unit PRBC Check hemoccult Monitor H&H and transfuse to maintain Hb>9 (3) CHF exacerbation Current Visit: Yes Status: Acute Assessment and Plan: Patient with hx of CAD s/p 3 stents on ASA/Plavix and HFrEF EF 35-40% on lasix presents with orthopnea in the setting of stable vitals, basilar crackles and LE edema on exam, BNP 974, and CXR with concerns for pulmonary edema. -Likely decompensated heart failure, and patient already has symptomatic improvement after 40 of IV Lasix -Reason for acute decompensation of heart failure may be related to worsening heart function in setting of an NSTEMI versus periprocedural hypervolemia following surgery last admission -Patient's respiratory status has improved but continues to require 2L NC PLAN: - NSTEMI investigations per above - Hold further lasix - Strict i/o's and daily weights (4) CAD in [place] artery Current Visit: No Status: Acute Assessment and Plan: see above plan (5) Type 2 diabetes mellitus with foot ulcer Current Visit: No Status: Acute Assessment and Plan: Glucose on admission of 184. - Continue home NPH 40U bid - LDSS (6) Charcot foot due to diabetes mellitus Current Visit: No Status: Acute Assessment and Plan: Patient was recently discharged from the hospital 04/20 after being admitted for a post-op foot infection and hematoma requiring surgical intervention by podiatry. Was seen by ID and discharged with HH on IV antibiotics (cefepime and daptomycin). - Continue Cefepime and Daptomycin - Consult to wound nurse for wound vac management and dressing changes (7) CKD (chronic kidney disease) stage 3, GFR 30-59 ml/min Current Visit: Yes Status: Acute Assessment and Plan: Currently at his baseline - Time Spent with Patient Total time spent is greater than 50% in coordination of care (as documented) at patient's floor/unit and/or counseling patient: Internal Medicine: Result - Labs CBC & Chem 7: 04/23/19 05:00 04/23/19 05:00 Labs: Short CBC 04/22/19 04/23/19 Range/Units 20:36 05:00 WBC 5.7 (4.3-11.1) K/mcL Hgb 8.1 L 7.8 L (12.9-16.9) g/dL Hct 25.2 L 24.7 L (37.5-50.1) % Plt Count 130 L (140-400) K/mcL BMP 04/23/19 05:00 Sodium 138 Potassium 3.6 Chloride 106 Carbon Dioxide 23 BUN 29 H Creatinine 1.72 H Glucose 227 H Calcium 7.9 L Cardiac Enzymes 04/22/19 04/23/19 Range/Units 16:27 08:35 Troponin I 4.09 H* 1.10 H* (< 0.04) ng/mL - ABG Interpretation ABG results: PT/INR, D-dimer PT 10.5 Seconds (9.4-12.1) 04/22/19 07:03 - Impressions Impressions Echocardiogram 04/22/19 08:36 Impressions: Technically sub-optimal due to poor echocardiographic windows. LVEF 40%. Global left ventricular systolic dysfunction. Moderate left ventricular diastolic dysfunction. Right ventricle was not well visualized. Grossly, function is normal. No evidence of pulmonary hypertension. No significant valvular dysfunction. There is a small inferior and inferolateral pericardial effusion present. No tamponade. Left Ventricular Wall Motion: Rest Echo Findings The apex, apical inferior, mid inferior, basal inferior, apical anterior, mid anterior, basal anterior, apical septal, mid inferior septal, basal inferior septal, apical lateral, mid anterior lateral, basal anterior lateral, mid anterior septal, mid inferior lateral, basal anterior septal and basal inferior lateral pisano were hypokinetic. Findings: Study Quality * Technically sub-optimal due to poor echocardiographic windows. ECG Findings * Normal sinus rhythm. Left Ventricle * LVEF 40%. * Global left ventricular systolic dysfunction. * Moderate left ventricular diastolic dysfunction. Right Ventricle * Right ventricle was not well visualized. Grossly, function is normal. Left Atrium * Mildly dilated left atrium. Right Atrium * Right atrium is not well visualized. Interatrial Septum * Interatrial septum not well evaluated. Aortic Valve * Aortic valve not well visualized. * No aortic stenosis. * No aortic regurgitation. Mitral Valve * Normal mitral valve structure and function. * No mitral regurgitation. * No mitral stenosis. Tricuspid Valve * Normal tricuspid valve structure and function. * Trace tricuspid regurgitation. * No evidence of pulmonary hypertension. Pulmonic Valve * Pulmonic valve not well visualized. * No pulmonic regurgitation. Aorta * Normally sized aortic root. Pericardium * There is a small inferior and inferolateral pericardial effusion present. No tamponade. IVC * Normal IVC dimensions and inspiratory collapse. Pulmonary Artery * Pulmonary artery not well visualized. Consult Discharge Plan - Plan Referrals: Jose Rafael Morfin, [Primary Care Provider] - (2) Anemia Qualifiers: Anemia type: unspecified type Qualified Code(s): D64.9 - Anemia, unspecified (3) CHF exacerbation Qualifiers: Heart failure type: systolic Qualified Code(s): I50.23 - Acute on chronic systolic (congestive) heart failure (5) Type 2 diabetes mellitus with foot ulcer Qualifiers: Diabetes mellitus mcfp insulin use: with mcfp use Qualified Cod e(s): E11.621 - Type 2 diabetes mellitus with foot ulcer; L97.509 - Non-pressure chronic ulcer of other part of unspecified foot with unspecified severity; Z79.4 - 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
[2019-04-23 15:00] LABS: Hematocrit 25.8 % (37.5-50.1); Hemoglobin 8.3 g/dL (12.9-16.9)
--- NOTE | 2019-04-23 15:20 | Podiatry Consult Note ---
Date of Encounter: 04/23/19 Time of Encounter: 15:00 Assessment and Plan (1) Charcot foot due to diabetes mellitus Current visit: No Status: Acute -Post op day #9 incision and drainage left foot Dr. Alvarez 04/14/19 -Wound vac was placed post operatively however maceration of the tissue is noted -Serosanguineous drainage - 50cc noted to canister -Pulses per Doppler - Surgical culture showing VRE susceptible to linezolid -WBC 5.7 afebrile -BC no growth- final Plan: - Wound vac removed at this time and due to maceration will not be replaced for the weekend. Patient has galaxy wound vac at home, once placed will have kci while inpatient. -painted wound with betadine, applied adaptic to surgical opening, 4x4 and kerlix bulk dressing -Patient is not admitted related to the foot, podiatry will continue to follow and monitor as needed -Patient was discharged on cefepime and daptomycin- continue as ordered -Will plan to possibly replace wound vac friday - daily dressing changes, paint with betadine and apply adaptic , dry bulk d ressing -Social Service consult as family had concerns that [facility] did not come when they were suppose to -Follow up with Dr. Alvarez in Wound Care 1 week or less after discharge, please schedule appointment prior to discharge - call soil fertility extension specialist with any issues or concerns over the weekend History of Present Illness HPI: Mr. Vargas is a 49 year old male admitted to the hospital for chest pain and shortness of breath overnight. He recently underwent I&D of a left foot wound with application of a wound vac and was discharged from [facility] on 04/20 to go home with [facility] and was noted to be in stable condition. He was admitted following noted elevated troponins for monitoring and treatment. Podiatry has been consulted to manage post op wound and wound vac. He does have a past medical history that is significant for CAD with stents x3, SC, CHF, hypertension, hyperlipidemia, COPD, CKD, GERD, diabetes, and charcot left foot. Patient underwent surgery on March 24, [address] Alvarez to repair his charcot. He has been following up outpatient in the Podiatry office. Patient confirms chest pain and SOB. Denies any known fevers, chills, n/v or fls. POD #5 incision and drainage left foot by Dr. Alvarez on 04/14/2019. Patient is alert and oriented, laying in bed with no acute distress noted, at bedside. no acute complaints at this time. Dressing and wound vac intact to LLE however reports HHC was suppose to come change vac yesterday and never came. Past Med Surg Social Fam HX - Past Medical History Medical history: cardiomyopathy, CHF, COPD, coronary artery disease, diabetes, GERD, hyperlipidemia, hypertension, myocardial infarction, renal disease, other Additional medical history: Charcot's joint of L foot, Lisfranc dislocation, antithrombotics/antiplatelets, ischemic cardiomyopathy Psychiatric history: no psych history - Past Surgical History Surgical History: angioplasty/stent, orthopedic, other Additional surgical history: left foot surgery, cardiac stents, LHC, L foot I&D - Social History Smoking Status: Former smoker Smokeless Tobacco Status: No Alcohol use: none Drug use: none - Family History Father Family Member Ethnicity: Non- Living Status: Hx Family Cardiac Disorders: Yes (HTN) Hx Family Endocrine Disorder: Yes (DM) Sister Family Member Ethnicity: Non- Living Status: Still Living Hx Family Endocrine Disorder: Yes (DM) Brother Family Member Ethnicity: Non- Living Status: Still Living Hx Family Cardiac Disorders: Yes (SC Age 50) Hx Family Endocrine Disorder: Yes (DM) Mother Family Member Ethnicity: Non- Living Status: Hx Family Cardiac Disorders: Yes (HD) Hx Family Endocrine Disorder: Yes (DM) Medications and Allergies Clopidogrel [Plavix] 75 mg PO QAM 02/18/19 [History] Furosemide [Lasix] 40 mg PO QAM 02/18/19 [History] Metformin HCl [Fortamet] 1,000 mg PO BID 02/18/19 [History] Metoprolol XL (24 HR) Succ [Toprol Xl] 100 mg PO QAM 02/18/19 [History] amLODIPine [Norvasc] 5 mg PO QAM 02/18/19 [History] Aspirin [Adult Aspirin] 81 mg PO DAILY 03/24/19 [History] Atorvastatin Calcium [Lipitor] 80 mg PO HS 03/24/19 [History] HYDROcodone/Acet 5/325 mg [[place] 5-325 mg] 1 tab PO Q6H PRN 3 Days #12 tab 03/24/19 [Rx] Ondansetron ODT [Zofran ODT] 4 mg SL Q8HR PRN #12 tab.rapdis 03/24/19 [Rx] raNITIdine HCl [Zantac] 150 mg PO BID 03/24/19 [History] Amitriptyline [Elavil] 25 mg PO HS 04/13/19 [History] Losartan Potassium [Cozaar] 100 mg PO QAM 04/13/19 [History] Cefepime HCl/D5w [Cefepime-Dextrose 2 gm/50 ml] 2 gm IV Q24H 14 Days #14 mls 04/20/19 [Rx] DAPTOmycin [Daptomycin] 500 mg IV DAILY 14 Days #14 vial 04/20/19 [Rx] Insulin Aspart Prot/Insuln Asp [Novolog Mix 70-30 Vial] 40 unit SQ BID 30 Days #24 vial 04/20/19 [Rx] Allergy/AdvReac Type Severity Reaction Status Date / Time No Known Allergies Allergy Verified 04/22/19 04:41 All Systems Reviewed: as per HPI Physical Exam - Constitutional Vitals: Temp Pulse Resp BP Pulse Ox 100.2 F H 90 18 137/66 99 04/23/19 13:15 04/23/19 13:15 04/23/19 13:15 04/23/19 13:15 04/23/19 13:15 Exam: Constitutional: Alert and oriented x 3, well nourished, no acute distress male Vascular: DP/PT pulses per Doppler, cap less than 3 seconds, skin warm from tibia to toes, no pain with calf squeeze Neurological: Diminished protective sensation, abnormal proprioception Dermatological: Left foot with edema noted, sutures and derrick removed except sutures noted medial aspect LLE, intact and edges coapting, there is a moderate amount of maceration to foot, especially noted to the forefoot. no skin breakdown noted. Likely related to wound vac not being changed and moderate amount of drainage. sutures distal aspect of foot intact, Maceration surrounding sutures noed. surgical wound medial aspect of left foot open, s erosanguineous drainage noted and strike through noted on Kerlix, no erythema, no lymphangitis, open surgical wound to plantar aspect of left forefoot medial aspect 50% healthy granulation tissue, 50% yellow fibrous tissue. Derrick noted to posterior aspect of leg. intact. margins well approximated and without issue. Musculoskeletal: Movement of toes noted Results - Labs Result Diagrams: 04/23/19 14:25 04/23/19 05:00 Labs: Abnormal lab results RBC 2.75 M/mcL (4.19-5.50) L 04/23/19 05:00 Hgb 8.3 g/dL (12.9-16.9) L 04/23/19 14:25 Hct 25.8 % (37.5-50.1) L 04/23/19 14:25 MCHC 31.5 g/dL (31.6-35.5) L 04/22/19 05:22 RDW 14.6 % (11.5-14.5) H 04/23/19 05:00 Plt Count 130 K/mcL (140-400) L 04/23/19 05:00 MPV 12.6 fL (9.4-12.4) H 04/23/19 05:00 Heparin Anti-Xa, Unfract 0.19 IU/mL (0.30-0.70) L 04/23/19 14:25 BUN 29 mg/dL (6-20) H 04/23/19 05:00 Creatinine 1.72 mg/dL (0.70-1.30) H 04/23/19 05:00 Est GFR ( Amer) 51 (> 60) L 04/23/19 05:00 Est GFR (Non-Af Amer) 42 (> 60) L 04/23/19 05:00 Glucose 227 mg/dL (70-105) H 04/23/19 05:00 POC Glucose 156 mg/dL (70-99) H 04/22/19 21:11 Calcium 7.9 mg/dL (8.6-10.3) L 04/23/19 05:00 Iron 20 mcg/dL (65-175) L 04/22/19 20:36 % Saturation 11 % (20-55) L 04/22/19 20:36 Transferrin 135 mg/dL (203-362) L 04/22/19 20:36 Troponin I 1.10 ng/mL (< 0.04) H* 04/23/19 08:35 B-Natriuretic Peptide 974 pg/mL (Less than 100) H 04/22/19 05:22 Crossmatch See Detail 04/23/19 08:40 H & H 04/22/19 04/23/19 04/23/19 Range/Units 20:36 05:00 14:25 Hgb 8.1 L 7.8 L 8.3 L (12.9-16.9) g/dL Hct 25.2 L 24.7 L 25.8 L (37.5-50.1) % All other labs normal. Consult Discharge Plan - Plan Referrals: Jose Rafael Morfin DO [Primary Care Provider] -
[2019-04-23] MEDS: *HR* Heparin 5,000 UNIT/ML VIAL IVP PRN (17:18)
[2019-04-23 21:09] LABS: Hematocrit 23.9 % (37.5-50.1); Hemoglobin 7.8 g/dL (12.9-16.9)
[2019-04-24] MEDS: *HR* Heparin 5,000 UNIT/ML VIAL IVP PRN ×3 (01:42→17:36)
[2019-04-24] MEDS: Insulin LISPRO 300 UNITS/3 ML VIAL SQ SCH ×4 (08:20→20:16)
[2019-04-24] MEDS: Aspirin Enteric Coated 81 MG Tablet PO SCH (08:21)
[2019-04-24] MEDS: amLODIPine 5 MG TABLET PO SCH (08:21)
[2019-04-24] MEDS: Famotidine 20 MG TABLET PO SCH ×2 (08:21→20:16)
[2019-04-24] MEDS: Insulin NPH/REG 70/30 100 UNIT/ML (x5UNIT) SQ SCH ×2 (08:21→16:47)
--- NOTE | 2019-04-24 10:39 | Event Note ---
Date of Encounter: 04/24/19 Time of Encounter: 10:00 - Cardiology Event Note Plan for LHC (NSTEMI) after GI evaluation given anemia. s/p 1 unit of PRBC on 04/23--HgB improved to 8.3, however then dropped to 7.8 yesterday evening. Will continue to peripherally follow and review results of EGD, colonoscopy once completed. Patient was discussed and reviewed with Dr. Estrada. Short CBC 04/23/19 04/23/19 Range/Units 20:45 14:25 Hgb 7.8 L 8.3 L (12.9-16.9) g/dL Hct 23.9 L 25.8 L (37.5-50.1) %
[2019-04-24] MEDS: Heparin 25,000 UNIT/250 ML D5W 25,000 UNIT/250 ML IV.SOLN IVC SCH ×2 (10:47→23:23)
[2019-04-24] MEDS: Cefepime HCl 2,000 MG in 0.9 % Sodium Chloride Mini Bag 100 ML IVPB SCH (11:16)
[2019-04-24] MEDS: DAPTOmycin 500 MG in 0.9 % Sodium Chloride 100 ML IVPB SCH (11:16)
--- NOTE | 2019-04-24 11:29 | Internal Med Progress Note ---
Hospitalist Progress Note - Encounter Date of Encounter: 04/24/19 Time of Encounter: 11:26 - Subjective Interval History: Patient seen and examined. Patient has no complaints this morning. Patient denies any chest pain or SOB. He is no longer on oxygen. - Exam Vitals: Temp Pulse Resp BP Pulse Ox 97.8 F 80 18 135/78 96 04/24/19 07:13 04/24/19 07:13 04/24/19 07:13 04/24/19 07:13 04/24/19 07:13 Exam: General: Ill-appearing and in no acute distress HEENT: No erythema of posterior pharynx. No exudates. Lymphatics: No mandibular or cervical lymphadenopathy Cardiovascular: RRR. No murmurs. No chest wall tenderness. Lungs: Basilar crackles. Regular chest rise. Abdomen: Non-tender. No rebound or gaurding. Nl bowel sounds. Extremities: 1+ edema. in RLE. LLE with wound vac in place and wrapped in NAIMA bandage c/d/i Skin: No rashes, abrasions, or contusions. Nl cap refill. Psych: Nl attention. 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 5/5 strength. Sensation to light touch and pinprick intact. - Assessment and Plan (1) NSTEMI (non-ST elevated myocardial infarction) Current Visit: Yes Status: Acute Assessment and Plan: Patient presenting with orthopnea in setting of CAD s/p 3 stents, HFrEF EF 35- 40% Troponin elevation from 0.61 to 4.09 EKG showing new T wave inversions Hb down to 7.8 Plan: Cardiology on board: plan for cath after GI evaluation for anemia Continue ASA, statin, plavix, BB, ARB (2) Anemia Current Visit: Yes Status: Acute Assessment and Plan: Patient's Hb 7.8; baseline may be closer to 10 No reported blood in stool Patient recieved 1 unit PRBC; initially Hb came up to 8.3 but back down to 7.8 this am Plan: Acute surgery consulted for colonoscopy and endoscopy to rule out GI bleed; planned for Friday Transfuse additional unit PRBC Check hemoccult Monitor H&H and transfuse to maintain Hb>9 (3) CHF exacerbation Current Visit: Yes Status: Resolved Assessment and Plan: Patient with hx of CAD s/p 3 stents on ASA/Plavix and HFrEF EF 35-40% on lasix presents with orthopnea in the setting of stable vitals, basilar crackles and LE edema on exam, BNP 974, and CXR with concerns for pulmonary edema. -Likely decompensated heart failure, and patient already has symptomatic improvement after 40 of IV Lasix -Reason for acute decompensation of heart failure may be related to worsening heart function in setting of an NSTEMI versus periprocedural hypervolemia following surgery last admission -Patient off of oxygen now PLAN: - NSTEMI investigations per above - Hold further lasix - Strict i/o's and daily weights (4) CAD in [place] artery Current Visit: No Status: Acute Assessment and Plan: see above plan (5) Type 2 diabetes mellitus with foot ulcer Current Visit: No Status: Acute Assessment and Plan: Glucose on admission of 184. - Continue home NPH 40U bid - LDSS (6) Charcot foot due to diabetes mellitus Current Visit: No Status: Acute Assessment and Plan: Patient was recently discharged from the hospital 04/20 after being admitted for a post-op foot infection and hematoma requiring surgical intervention by podiatry. Was seen by ID and discharged with HH on IV antibiotics (cefepime and daptomycin). - Continue Cefepime and Daptomycin - Wound care consulted - Podiatry consulted for management of wound vac (7) CKD (chronic kidney disease) stage 3, GFR 30-59 ml/min Current Visit: Yes Status: Acute Assessment and Plan: Currently at his baseline - Time Spent with Patient Total time spent is greater than 50% in coordination of care (as documented) at patient's floor/unit and/or counseling patient: 35 minutes Plan of Care Discussed with: patient Internal Medicine: Result - Labs CBC & Chem 7: 04/23/19 20:45 04/23/19 05:00 Labs: Short CBC 04/23/19 04/23/19 Range/Units 14:25 20:45 Hgb 8.3 L 7.8 L (12.9-16.9) g/dL Hct 25.8 L 23.9 L (37.5-50.1) % - ABG Interpretation ABG results: PT/INR, D-dimer PT 10.5 Seconds (9.4-12.1) 04/22/19 07:03 Consult Discharge Plan - Plan Referrals: Navjot,Jose Rafael M, DO [Primary Care Provider] - (2) Anemia Qualifiers: Anemia type: unspecified type Qualified Code(s): D64.9 - Anemia, unspecified (3) CHF exacerbation Qualifiers: Heart failure type: systolic Qualified Code(s): I50.23 - Acute on chronic systolic (congestive) heart failure (5) Type 2 diabetes mellitus with foot ulcer Qualifiers: Diabetes mellitus merchandising team lead insulin use: with intermediate use Qualified Code(s): E11.621 - Type 2 diabetes mellitus with foot ulcer; L97.509 - Non- pressure chronic ulcer of other part of unspecified foot with unspecified severity; Z79.4 - cardiology nurse (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
[2019-04-24] MEDS ORDERED: Furosemide 20 MG/2 ML VIAL IVP ONE (11:30)
[2019-04-24] MEDS ORDERED: 0.9 % Sodium Chloride 250 ML IVC SCH (11:30)
[2019-04-24] MEDS ORDERED: Acetaminophen 325 MG TABLET PO ONE (11:30)
--- NOTE | 2019-04-24 12:09 | AcuteCareSurgery Progress Note ---
Date of Encounter: 04/24/19 Time of Encounter: 12:05 - Assessment and Plan (1) Anemia Current Visit: Yes Status: Acute 49M with NSTEMI, anemia of unknown origin; will need EGD, colonoscopy prior to cardiac catheterization; still receiving plavix; will cont to hold on colonoscopy and EGD for 3 days at least, ideally 5 but will do it sooner if cardiology needs it done sooner; diet as tolerated hold plavix trend h/h transfuse as needed will cont to follow Qualifiers: Anemia type: unspecified type Qualified Code(s): D64.9 - Anemia, unspecified Subjective Patient reports: no new complaints, feels better, bowel movement (no blood in bowel movement) Objective Vital Signs - Last 8 Hours Temp Pulse Resp BP Pulse Ox 04/24/19 12:02 98.0 F 78 18 118/68 96 04/24/19 07:13 97.8 F 80 18 135/78 96 Intake and Output 04/23/19 04/24/19 04/24/19 23:59 07:59 15:59 Intake Total 250 / 820 64 / 490.0 426.0 / 490.0 Output Total 300 / 300 Balance 250 / 820 64 / 190.0 126.0 / 190.0 Intake: IV Fluids 250 / 450 64 / 250.0 186.0 / 250.0 Heparin 25,000 UNIT/250 ML D5W 250 / 250 64 / 250.0 186.0 / 250.0 25,000 unit In 250 ml @ 8.3 UNIT/KG/HR 9.977 mls/hr IVC . Q24H JORDY Rx#:[id number] Oral 240 / 240 Output: Urine 300 / 300 Other: Meal Breakfast Percent of Meal Consumed 100% Blood Glucose* 258 204 - General physical appearance no distress - Respiratory normal expansion, normal respiratory effort - Cardiovascular Cardiovascular exam: Present: RRR - Abdomen Abdomen: Present: soft, non tender - Neurologic CN 2-12 grossly intact - Psychiatric oriented to time, oriented to person, oriented to place - Labs 04/23/19 20:45 04/23/19 05:00 Consult Discharge Plan - Plan Referrals: Jose Rafael Morfin DO [Primary Care Provider] -
[2019-04-24 13:20] LABS: Hematocrit 27.6 % (37.5-50.1); Hemoglobin 8.7 g/dL (12.9-16.9)
[2019-04-24] MEDS ORDERED: 0.9 % Sodium Chloride 250 ML ONE (13:25)
[2019-04-24 20:02] LABS: Hematocrit 27.4 % (37.5-50.1)
[2019-04-25] MEDS ORDERED: Famotidine 20 MG TABLET PO SCH (07:00)
[2019-04-25] MEDS: Insulin LISPRO 300 UNITS/3 ML VIAL SQ SCH ×4 (08:27→19:45)
[2019-04-25] MEDS: amLODIPine 5 MG TABLET PO SCH (08:27)
[2019-04-25] MEDS: Famotidine 20 MG TABLET PO SCH (08:27)
[2019-04-25] MEDS: Insulin NPH/REG 70/30 100 UNIT/ML (x5UNIT) SQ SCH ×2 (08:27→17:25)
[2019-04-25] MEDS: Aspirin Enteric Coated 81 MG Tablet PO SCH (08:28)
--- NOTE | 2019-04-25 09:12 | Internal Med Progress Note ---
Hospitalist Progress Note - Encounter Date of Encounter: 04/25/19 Time of Encounter: 09:10 - Subjective Interval History: Patient seen and examined. No acute events overnight. Hb stable now. Patient reports that he has some abdominal discomfort and he feels bloated although he does not appear changed from previous exam. Patient does have regular bowel m ovements. He denies nausea, vomiting, diarrhea. - Exam Vitals: Temp Pulse Resp BP Pulse Ox 97.7 F 56 19 151/83 97 04/25/19 07:15 04/25/19 07:15 04/25/19 07:15 04/25/19 07:15 04/25/19 07:15 Exam: General: Ill-appearing and in no acute distress HEENT: No erythema of posterior pharynx. No exudates. Lymphatics: No mandibular or cervical lymphadenopathy Cardiovascular: RRR. No murmurs. No chest wall tenderness. Lungs: Basilar crackles. Regular chest rise. Abdomen: Non-tender. No rebound or gaurding. Nl bowel sounds. Extremities: 1+ edema. in RLE. LLE with wound vac in place and wrapped in NAIMA bandage c/d/i Skin: No rashes, abrasions, or contusions. Nl cap refill. Psych: Nl attention. A&Ox3 Neuro: front desk agent II-XII intact. 5/5 strength. Sensation to light touch and pinprick intact. - Assessment and Plan (1) NSTEMI (non-ST elevated myocardial infarction) Current Visit: Yes Status: Acute Assessment and Plan: Patient presenting with orthopnea in setting of CAD s/p 3 stents, HFrEF EF 35- 40% Troponin elevation from 0.61 to 4.09 EKG showing new T wave inversions Hb down to 7.8 Plan: Cardiology on board: plan for cath after GI evaluation for anemia Continue ASA, statin, plavix, BB, ARB (2) Anemia Current Visit: Yes Status: Acute Assessment and Plan: Patient's Hb 7.8; baseline may be closer to 10 No reported blood in stool Patient S/P 2 units PRBC with most recent Hb 9 Hemoccult positive Plan: Acute surgery consulted for colonoscopy and endoscopy to rule out GI bleed; planned for Friday Transfuse additional unit PRBC Monitor H&H and transfuse to maintain Hb>9 (3) CHF exacerbation Current Visit: Yes Status: Resolved Assessment and Plan: Patient with hx of CAD s/p 3 stents on ASA/Plavix and HFrEF EF 35-40% on lasix presents with orthopnea in the setting of stable vitals, basilar crackles and LE edema on exam, BNP 974, and CXR with concerns for pulmonary edema. -Likely decompensated heart failure, and patient already has symptomatic improvement after 40 of IV Lasix -Reason for acute decompensation of heart failure may be related to worsening heart function in setting of an NSTEMI versus periprocedural hypervolemia following surgery last admission -Patient off of oxygen now PLAN: - NSTEMI investigations per above - Hold further lasix - Strict i/o's and daily weights (4) CAD in [place] artery Current Visit: No Status: Acute Assessment and Plan: see above plan (5) Type 2 diabetes mellitus with foot ulcer Current Visit: No Status: Acute Assessment and Plan: Glucose on admission of 184. - Continue home NPH 40U bid - LDSS (6) Charcot foot due to diabetes mellitus Current Visit: No Status: Acute Assessment and Plan: Patient was recently discharged from the hospital 04/20 after being admitted for a post-op foot infection and hematoma requiring surgical intervention by podiatry. Was seen by ID and discharged with HH on IV antibiotics (cefepime and daptomycin). - Continue Cefepime and Daptomycin - Wound care consulted - Podiatry consulted for management of wound vac (7) CKD (chronic kidney disease) stage 3, GFR 30-59 ml/min Current Visit: Yes Status: Acute Assessment and Plan: Currently at his baseline (8) Abdominal discomfort Current Visit: Yes Status: Acute Assessment and Plan: Patient reporting abdominal discomfort this morning He notes feeling bloated; no obvious distension when compared to yesterday, however difficult to iron caster due to body habitus Patient continues to have regular bowel movements Plan: KUB; check LFTs - Time Spent with Patient Total time spent is greater than 50% in coordination of care (as documented) at patient's floor/unit and/or counseling patient: 35 minutes Plan of Care Discussed with: patient Internal Medicine: Result - Labs CBC & Chem 7: 04/24/19 19:14 04/23/19 05:00 Labs: Short CBC 04/24/19 04/24/19 Range/Units 12:56 19:14 Hgb 8.7 L 9.0 L (12.9-16.9) g/dL Hct 27.6 L 27.4 L (37.5-50.1) % - ABG Interpretation ABG results: PT/INR, D-dimer PT 10.5 Seconds (9.4-12.1) 04/22/19 07:03 Consult Discharge Plan - Plan Referrals: Jose Rafael Morfin, [Primary Care Provider] - (2) Anemia Qualifiers: Anemia type: unspecified type Qualified Code(s): D64.9 - Anemia, unspecified (3) CHF exacerbation Qualifiers: Heart failure type: systolic Qualified Code(s): I50.23 - Acute on chronic systolic (congestive) heart failure (5) Type 2 diabetes mellitus with foot ulcer Qualifiers: Diabetes mellitus continuous churn buttermaker insulin use: with continuous churn buttermaker use Qualified Code(s): E11.621 - Type 2 diabetes mellitus with foot ulcer; L97.509 - Non- pressure chronic ulcer of other part of unspecified foot with unspecified severity; Z79.4 - custodial (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
[2019-04-25] MEDS: Heparin 25,000 UNIT/250 ML D5W 25,000 UNIT/250 ML IV.SOLN IVC SCH ×2 (09:19→19:09)
[2019-04-25 09:30] LABS: Albumin 3.1 g/dL (3.5-5.7); Albumin/Globulin Ratio 0.9 (1.1-2.2); Bilirubin,Direct 0.1 mg/dL (0.0-0.2); Bilirubin,Indirect 0.3 mg/dL (0.0-1.2); Bilirubin,Total 0.4 mg/dL (0.3-1.0); Globulin 3.3 g/dL (2.4-3.5); Total Protein 6.4 g/dL (6.4-8.9)
--- NOTE | 2019-04-25 09:48 | Event Note ---
Date of Encounter: 04/25/19 Time of Encounter: 09:47 - Cardiology Event Note Plan for [facility] (NSTEMI) after GI evaluation given anemia. Will continue to peripherally follow and review results of EGD, colonoscopy once completed. Plavix on hold pending scopes. On ASA. Patient was discussed and reviewed with Dr. Estrada.
[2019-04-25] MEDS ORDERED: MOM Conc 10 ML UD.LIQ PO PRN (10:47)
[2019-04-25] MEDS: DAPTOmycin 500 MG in 0.9 % Sodium Chloride 100 ML IVPB SCH (11:47)
[2019-04-25] MEDS: Cefepime HCl 2,000 MG in 0.9 % Sodium Chloride Mini Bag 100 ML IVPB SCH (11:48)
--- NOTE | 2019-04-25 12:37 | AcuteCareSurgery Progress Note ---
Date of Encounter: 04/25/19 Time of Encounter: 12:34 - Assessment and Plan (1) Anemia Current Visit: Yes Status: Acute 49M with NSTEMI, anemia of unknown origin; will need EGD, colonoscopy prior to cardiac catheterization; still receiving plavix; will cont to hold on colonoscopy and EGD for 3 days at least, ideally 5 but will do it sooner if cardiology needs it done sooner; diet as tolerated hold plavix trend h/h transfuse as needed will cont to follow - will likely be scoped by my partner; I will discuss with her when she is manager application development tomorrow to ascertain the timing of his scopes Qualifiers: Anemia type: unspecified type Qualified Code(s): D64.9 - Anemia, unspecified Subjective Patient reports: no new complaints Objective Vital Signs - Last 8 Hours Temp Pulse Resp BP Pulse Ox 04/25/19 12:05 97.5 F L 75 16 152/79 97 04/25/19 07:15 97.7 F 56 19 151/83 97 Intake and Output 04/24/19 04/25/19 04/25/19 23:59 07:59 15:59 Intake Total 800.0 / 1290.0 95 / 490 395 / 490 Balance 800.0 / 990.0 95 / 490 395 / 490 Intake: IV Fluids 450.0 / 700.0 95 / 250 155 / 250 Heparin 25,000 UNIT/250 ML D5W 250.0 / 500.0 95 / 250 155 / 250 25,000 unit In 250 ml @ 8.3 UNIT/KG/HR 9.977 mls/hr IVC . Q24H JORDY Rx#:[id number] Maxipime 2,000 MG In 0.9 % 100 / 100 Sodium Chloride (Mini-Bag +) 100 ML @ 200 mls/hr IVPB Q24H JORDY Rx#:[id number] Cubicin 500 MG In 0.9 % Sodium 100 / 100 Chloride 100 ML @ 200 mls/hr IVPB Q24H JORDY Rx#:[id number] Oral 240 / 240 Blood Product 350 / 350 Rbcs Leuko Poor As-1 Unit 350 / 350 [id number] Other: Meal Breakfast Percent of Meal Consumed 100% Stool Size Moderate Stool Consistency soft formed Stool Characteristics Normal for Patient Stool Color Brown # Voids 1 Weight 121 kg Blood Glucose* 351 219 221 - General physical appearance no distress - Respiratory normal expansion, normal respiratory effort - Cardiovascular Cardiovascular exam: Present: RRR - Abdomen Abdomen: Present: soft, non tender - Neurologic CN 2-12 grossly intact - Psychiatric oriented to time, oriented to person, oriented to place - Labs 04/24/19 19:14 04/23/19 05:00 Diabetes panel 04/25/19 Range/Units 01:26 AST 26 (13-39) Units/L ALT 18 (7-52) Units/L Alkaline Phosphatase 108 H (34-104) Units/L Albumin 3.1 L (3.5-5.7) g/dL Calcium panel 04/25/19 Range/Units 01:26 Albumin 3.1 L (3.5-5.7) g/dL Adrenal panel 04/25/19 Range/Units 01:26 Total Bilirubin 0.4 (0.3-1.0) mg/dL AST 26 (13-39) Units/L ALT 18 (7-52) Units/L Alkaline Phosphatase 108 H (34-104) Units/L Albumin 3.1 L (3.5-5.7) g/dL Consult Discharge Plan - Plan Referrals: Jose Rafael Morfin DO [Primary Care Provider] -
[2019-04-25 13:03] LABS: Hematocrit 28.8 % (37.5-50.1); Hemoglobin 9.5 g/dL (12.9-16.9)
[2019-04-25 20:23] LABS: Hematocrit 27.2 % (37.5-50.1); Hemoglobin 8.9 g/dL (12.9-16.9)
[2019-04-26] MEDS: *HR* Heparin 5,000 UNIT/ML VIAL IVP PRN (02:57)
--- NOTE | 2019-04-26 08:18 | AcuteCareSurgery Progress Note ---
Date of Encounter: 04/26/19 Time of Encounter: 07:30 - Assessment and Plan (1) Anemia Current Visit: Yes Status: Acute Plan for endoscopic evaluation of GI tract tomorrow. Pt is on heparin gtt and plavix is on hold. Indications for EGD /colonoscopy are discussed in detail. Procedure, risk and benefits of EGD/colonscopy are discussed. Pt understands risks and possible complications. Possible complications include but, are not limited to bleeding, infection or perforation. Pt understands and wishes to proceed as recommended. Consent is obtained. Inpatient colonoscopy is scheduled. Prep today and scopes tomorrow. Qualifiers: Anemia type: unspecified type Qualified Code(s): D64.9 - Anemia, unspecified (2) NSTEMI (non-ST elevated myocardial infarction) Current Visit: Yes Status: Acute (3) CKD (chronic kidney disease) stage 3, GFR 30-59 ml/min Current Visit: Yes Status: Acute (4) CHF exacerbation Current Visit: Yes Status: Resolved Qualifiers: Heart failure type: systolic Qualified Code(s): I50.23 - Acute on chronic systolic (congestive) heart failure (5) CAD (coronary artery disease) Current Visit: No Status: Chronic Qualifiers: Coronary Disease-Associated Artery/Lesion type: unspecified vessel or lesion type [place] vs. transplanted heart: [place] heart Associated angina: angina presence unspecified Qualified Code(s): I25.10 - Atherosclerotic heart disease of [place] coronary artery without angina pectoris (6) Diabetes Current Visit: No Status: Chronic Qualifiers: Diabetes mellitus type: type 2 Diabetes mellitus skilled nursing insulin use: unspecified skilled nursing insulin use status Diabetes mellitus complication status: with other specified complication Qualified Code(s): E11.69 - Type 2 diabetes mellitus with other specified complication (7) HTN (hypertension) Current Visit: No Status: Chronic Qualifiers: Hypertension type: essential hypertension Qualified Code(s): I10 - Essential (primary) hypertension Subjective Patient reports: no new complaints, feels better, pain is less, tolerating a regular diet, flatus, bowel movement, afebrile Objective Vital Signs - Last 8 Hours Temp Pulse Resp BP Pulse Ox 04/26/19 07:50 97.8 F 70 16 151/84 96 04/26/19 03:28 98.2 F 76 19 138/74 97 Intake and Output 04/25/19 04/26/1919 23:59 07:59 15:59 Intake Total 690 / 1180 127 / 127 Output Total 0 / 0 0 / 0 Balance 690 / 1180 127 / 127 Intake: IV Fluids 450 / 700 127 / 127 Heparin 25,000 UNIT/250 ML D5W 250 / 500 127 / 127 25,000 unit In 250 ml @ 8.3 UNIT/KG/HR 9.977 mls/hr IVC . Q24H [facility]ORD[facility] Rx#:[id number] Maxipime 2,000 MG In 0.9 % 100 / 100 Sodium Chloride (Mini-Bag +) 100 ML @ 200 mls/hr IVPB Q24H JORD[facility] Rx#:[id number] Cubicin 500 MG In 0.9 % Sodium 100 / 100 Chloride 100 ML @ 200 mls/hr IVPB Q24H JORDY Rx#:[id number] Oral 240 / 480 0 / 0 Output: Urine 0 / 0 0 / 0 Other: Meal Dinner Percent of Meal Consumed 100% # Voids 1 Weight 121.6 kg Blood Glucose* 80 253 - General physical appearance well developed, no distress, no pain - Eyes PERRL, normal ocular movement - ENT normal mucosa, no congestion - Neck Neck exam: trachea midline, no venous distension - Respiratory normal respiratory effort, clear to auscultation - Cardiovascular Cardiovascular exam: Present: RRR. Absent: JVD - Abdomen Abdomen: Present: bowel sounds present, soft, non tender. Absent: distended - Genitourinary normal penis with no external lesions - Neurologic CN 2-12 grossly intact - Musculoskeletal normal posture - Psychiatric oriented to time, oriented to person, oriented to place - Labs 04/25/19 20:12 04/23/19 05:00 Diabetes panel 04/25/19 Range/Units 01:26 AST 26 (13-39) Units/L ALT 18 (7-52) Units/L Alkaline Phosphatase 108 H (34-104) Units/L Albumin 3.1 L (3.5-5.7) g/dL Calcium panel 04/25/19 Range/Units 01:26 Albumin 3.1 L (3.5-5.7) g/dL Adrenal panel 04/25/19 Range/Units 01:26 Total Bilirubin 0.4 (0.3-1.0) mg/dL AST 26 (13-39) Units/L ALT 18 (7-52) Units/L Alkaline Phosphatase 108 H (34-104) Units/L Albumin 3.1 L (3.5-5.7) g/dL Consult Discharge Plan - Plan Referrals: Jose Rafael Morfin DO [Primary Care Provider] -
[2019-04-26] MEDS: Insulin NPH/REG 70/30 100 UNIT/ML (x5UNIT) SQ SCH ×2 (08:36→17:27)
[2019-04-26] MEDS: Insulin LISPRO 300 UNITS/3 ML VIAL SQ SCH ×4 (08:36→20:20)
[2019-04-26] MEDS: Heparin 25,000 UNIT/250 ML D5W 25,000 UNIT/250 ML IV.SOLN IVC SCH ×2 (08:37→17:26)
[2019-04-26] MEDS: Famotidine 20 MG TABLET PO SCH (08:37)
[2019-04-26] MEDS: amLODIPine 5 MG TABLET PO SCH (08:37)
[2019-04-26] MEDS: Aspirin Enteric Coated 81 MG Tablet PO SCH (08:37)
--- NOTE | 2019-04-26 11:31 | Podiatry Progress Note ---
Date of Encounter: 04/26/19 Time of Encounter: 11:28 - Assessment and Plan (1) Charcot foot due to diabetes mellitus Current Visit: No Status: Acute Assessment: Surgical wound noted to medial left foot, dorsal left foot, and plantar 1st submetatarsal S/P incision and drainage left foot Dr. Alvarez 04/14/[address] to left foot, serosanguinous drainage noted Doppler pulses Surgical culture showing VRE susceptible to linezolid Blood cultures, no growth Plan: Remove derrick, per nursing Removed dressing, verbal consent obtained and bedside debridement completed, see below Patient is not admitted related to the foot, podiatry will continue to follow and monitor as needed Patient was discharged on cefepime and daptomycin, ID consulted, appreciate recommendations Social Service consult to secure home care and dressing changes Follow up with Dr. Alvarez in Wound Care 1 week or less after discharge, please schedule appointment prior to discharge Informed consent obtained timeout performed. Patient placed in recument position. Left foot and ankle prepped and draped ususal manner. Under sterile technique and using sterile instrumentation surgical excisional wound debridement was carried out with #15 scalepl blade, pickup, scissor, as well as a curet to remove all devitalized tissue of the medial forefoot wound. Minimal bleeding noted. Debridement was carried down to the subcutaneous tissue. Tunneling noted at 2 oclock measuring 4 cm. Home wound vac placed. Nursing to place KCI wound vac. Discussed with nursing staff. Subjective Principal diagnosis: NSTEMI Interval history: Patient awake in bed. at bedside. Denies any fevers, chills, nausea, vomiting, or diarrhea. Denies any calf pain, chest pain, or shortness of breath. Reports he is getting a colonoscopy today and a heart cath this week and is hoping to get discharged on . No other questions or concerns at this time Objective - Vital Signs Vital Signs: Vital Signs Temp Pulse Resp BP Pulse Ox 04/26/19 07:50 97.8 F 70 16 151/84 96 04/26/19 03:28 98.2 F 76 19 138/74 97 04/25/19 22:59 98.4 F 72 19 152/69 96 04/25/19 18:17 98.6 F 78 18 142/76 95 04/25/19 16:20 97.6 F 80 19 135/64 96 04/25/19 12:05 97.5 F L 75 16 152/79 97 Intake and Output 04/25/19 04/26/19 04/26/19 23:59 07:59 15:59 Intake Total 690 / 1180 127 / 294.3 167.3 / 294.3 Output Total 0 / 0 0 / 0 Balance 690 / 1180 127 / 294.3 167.3 / 294.3 Intake: IV Fluids 450 / 700 127 / 294.3 167.3 / 294.3 Heparin 25,000 UNIT/250 ML D5W 250 / 500 127 / 294.3 167.3 / 294.3 25,000 unit In 250 ml @ 8.3 UNIT/KG/HR 9.977 mls/hr IVC . Q24H [facility]ORD[facility] Rx#:[id number] Maxipime 2,000 MG In 0.9 % 100 / 100 Sodium Chloride (Mini-Bag +) 100 ML @ 200 mls/hr IVPB Q24H [facility]ORD[facility] Rx#:[id number] Cubicin 500 MG In 0.9 % Sodium 100 / 100 Chloride 100 ML @ 200 mls/hr IVPB Q24H [facility] Rx#:[id number] Oral 240 / 480 0 / 0 Output: Urine 0 / 0 0 / 0 Other: Meal Dinner Percent of Meal Consumed 100% # Voids 1 Weight 121.6 kg Blood Glucose* 80 253 - Exam Exam: Constitiutional: Alert and oriented x 3. Well nourished. No acute distress noted Vascular: doppler DP/PT LLE, CFT <3 sec to all digits LLE, warm to warm from tibia to toes LLE, no calf pain with squeeze LLE Neurologic: Absent sensation to touch, normal plantar response Dermatologic: Left ulceration noted to medial aspect of foot with slough noted, tunneling noted at 2 oclock, measuring 4 cm deep, sutures noted to 1st metatarsal with maceration, painted with betadine, ulceration noted to 1st submetatarsal with slough noted, derrick noted to posterior achilles tendon Musculoskeletal: 3/5 muscle strength and normal tone LLE - Lab Result Diagrams: 04/25/19 20:12 04/23/19 05:00 Labs: Abnormal lab results RBC 2.75 M/mcL (4.19-5.50) L 04/23/19 05:00 Hgb 8.9 g/dL (12.9-16.9) L 04/25/19 20:12 Hct 27.2 % (37.5-50.1) L 04/25/19 20:12 MCHC 31.5 g/dL (31.6-35.5) L 04/22/19 05:22 RDW 14.6 % (11.5-14.5) H 04/23/19 05:00 Plt Count 130 K/mcL (140-400) L 04/23/19 05:00 MPV 12.6 fL (9.4-12.4) H 04/23/19 05:00 Heparin Anti-Xa, Unfract 0.04 IU/mL (0.30-0.70) L 04/26/19 01:20 BUN 29 mg/dL (6-20) H 04/23/19 05:00 Creatinine 1.72 mg/dL (0.70-1.30) H 04/23/19 05:00 Est GFR ( Amer) 51 (> 60) L 04/23/19 05:00 Est GFR (Non-Af Amer) 42 (> 60) L 04/23/19 05:00 Glucose 227 mg/dL (70-105) H 04/23/19 05:00 POC Glucose 143 mg/dL (70-99) H 04/25/19 16:23 Calcium 7.9 mg/dL (8.6-10.3) L 04/23/19 05:00 Iron 20 mcg/dL (65-175) L 04/22/19 20:36 % Saturation 11 % (20-55) L 04/22/19 20:36 Transferrin 135 mg/dL (203-362) L 04/22/19 20:36 Alkaline Phosphatase 108 Units/L (34-104) H 04/25/19 01:26 Troponin I 1.10 ng/mL (< 0.04) H* 04/23/19 08:35 B-Natriuretic Peptide 974 pg/mL (Less than 100) H 04/22/19 05:22 Albumin 3.1 g/dL (3.5-5.7) L 04/25/19 01:26 Albumin/Globulin Ratio 0.9 (1.1-2.2) L 04/25/19 01:26 Stool Occult Blood Positive (Negative) A 04/24/19 18:35 Crossmatch See Detail 04/23/19 08:40 Consult Discharge Plan - Plan Referrals: Jose Rafael Morfin DO [Primary Care Provider] -
[2019-04-26] MEDS: Cefepime HCl 2,000 MG in 0.9 % Sodium Chloride Mini Bag 100 ML IVPB SCH (12:01)
[2019-04-26] MEDS: DAPTOmycin 500 MG in 0.9 % Sodium Chloride 100 ML IVPB SCH (12:05)
--- NOTE | 2019-04-26 12:19 | Cardiology Progress Note ---
Date of Encounter: 04/26/19 Time of Encounter: 11:15 Assessment and Plan (1) NSTEMI (non-ST elevated myocardial infarction) Current Visit: Yes Status: Acute Troponin 0.61, 4.09, 1.10. On heparin gtt. Continue ASA, Statin, BB, ARB. Plavix held for GI evaluation tomorrow. ECG with T wave inversions in leads III and aVF, new compared to earlier this month. Known CAD hx s/p PCI 01/2018. Known EF 35-40% 09/2018. Repeat TTE EF 40%, unchanged. Global LV systolic dysfunction. Moderate LVDD. RV was not well visualized. Grossly, function is normal. No evidence of phtn. No significant valvular dysfunction. There is a small inferior and inferolateral pericardial effusion present. No tamponade. LHC would be recommended if patient is able. Patient has acute on chronic anemia HGB 7.8. HGB has been 7-8 range since 04/09, but prior to that was ~10 range. No recent GI work-up. Given need for LHC, possible PCI warranting DAPT, recommend GI evaluation prior to LHC. Will continue to follow. CKD at baseline. Possible LHC Friday pending endoscopy results. (2) Ischemic cardiomyopathy Current Visit: No Status: Chronic (3) CHF exacerbation Current Visit: Yes Status: Resolved Acute on chronic systolic CHF exacerbation. Known EF 35-40%. BNP 974. CXR cardiomegaly with possibly pulmonary edema. Presented with orthopnea. Received one time dose of IV Lasix with symptom improvement. CKD. Recommend strict I/Os, Na and fluid restriction, daily weights. IV lasix as needed. Currenty laying flat without difficulties. Qualifiers: Heart failure type: systolic Qualified Code(s): I50.23 - Acute on chronic systolic (congestive) heart failure (4) CKD (chronic kidney disease) stage 3, GFR 30-59 ml/min Current Visit: Yes Status: Acute (5) Anemia Current Visit: Yes Status: Acute HGB 8.9 today. S/p 1 unit PRBC. Keeb Hg above 8.0 in setting of NSTEMI. Qualifiers: Anemia type: unspecified type Qualified Code(s): D64.9 - Anemia, unspecified Discussion w patient/family: The assessment and plan as outlined above was discussed with the patient and/or family members who expressed understanding and agreement. All questions were answered. Thank you for involving us in the care of your patient. Please call with any questions. Subjective Principal diagnosis: NSTEMI Interval history: Mr. Vargas is resting in bed with at bedside. Denies chest pain or SOB. Objective Vital Signs, Last 4 Hours Temp Pulse Resp BP Pulse Ox 04/26/19 11:56 96.2 F L 71 16 155/81 97 General: Conversant, No Apparent Distress HEENT: Atraumatic, Normocephaly, Mucus Membranes Moist Neck: No JVD, Normal carotid pulses Cardiac: Reg Rate and Rhythm, Normal S1 and S2, No Murmur Lungs: Normal Breath Sounds, No Wheeze, Rales, Rhonchi Neuro: Alert and responsive, No focal deficits noted Abdomen: Soft, Non-Tender Skin: Other (wound vac on right foot) Musculoskeletal: No Chest Wall Tenderness Extremities: Other (1+ BLE edema) Results 04/25/19 20:12 04/23/19 05:00 Lab Results 04/25/19 04/25/19 12:54 20:12 Hgb 9.5 L 8.9 L Hct 28.8 L 27.2 L - Imaging and Cardiology Echo: report reviewed - EKG Interpretation EKG results cardiology: personally reviewed Consult Discharge Plan - Plan Referrals: Jose Rafael Morfin DO [Primary Care Provider] -
--- NOTE | 2019-04-26 13:01 | Internal Med Progress Note ---
Hospitalist Progress Note - Encounter Date of Encounter: 04/26/19 Time of Encounter: 12:59 - Subjective Interval History: Patient seen and examined. No acute events overnight. Patient states he is feeling great today. No chest pain, SOB or dizziness. - Exam Vitals: Temp Pulse Resp BP Pulse Ox 96.2 F L 71 16 155/81 97 04/26/19 11:56 04/26/19 11:56 04/26/19 11:56 04/26/19 11:56 04/26/19 11:56 Exam: General: Ill-appearing and in no acute distress HEENT: No erythema of posterior pharynx. No exudates. Lymphatics: No mandibular or cervical lymphadenopathy Cardiovascular: RRR. No murmurs. No chest wall tenderness. Lungs: Basilar crackles. Regular chest rise. Abdomen: Non-tender. No rebound or gaurding. Nl bowel sounds. Extremities: 1+ edema. in RLE. LLE with wound vac in place and wrapped in NAIMA bandage c/d/i Skin: No rashes, abrasions, or contusions. Nl cap refill. Psych: Nl attention. 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 5/5 strength. Sensation to light touch and pinprick intact. - Assessment and Plan (1) NSTEMI (non-ST elevated myocardial infarction) Current Visit: Yes Status: Acute Assessment and Plan: Patient presenting with orthopnea in setting of CAD s/p 3 stents, HFrEF EF 35- 40% Troponin elevation from 0.61 to 4.09 EKG showing new T wave inversions Hb down to 7.8 Plan: Cardiology on board: plan for cath after GI evaluation for anemia Continue ASA, statin, BB, ARB (2) Anemia Current Visit: Yes Status: Acute Assessment and Plan: Patient's Hb 7.8; baseline may be closer to 10 No reported blood in stool Patient S/P 2 units PRBC with most recent Hb 9 Hemoccult positive Plan: Acute surgery consulted for colonoscopy and endoscopy to rule out GI bleed; planned for tomorrow Hold Plavix Transfuse additional unit PRBC Monitor H&H and transfuse to maintain Hb>9 (3) CHF exacerbation Current Visit: Yes Status: Resolved Assessment and Plan: Patient with hx of CAD s/p 3 stents on ASA/Plavix and HFrEF EF 35-40% on lasix presents with orthopnea in the setting of stable vitals, basilar crackles and LE edema on exam, BNP 974, and CXR with concerns for pulmonary edema. -Likely decompensated heart failure, and patient already has symptomatic improvement after 40 of IV Lasix -Reason for acute decompensation of heart failure may be related to worsening heart function in setting of an NSTEMI versus periprocedural hypervolemia fol lowing surgery last admission -Patient off of oxygen now PLAN: - NSTEMI investigations per above - Hold further lasix - Strict i/o's and daily weights (4) CAD in [place] artery Current Visit: No Status: Acute Assessment and Plan: see above plan (5) Type 2 diabetes mellitus with foot ulcer Current Visit: No Status: Acute Assessment and Plan: Glucose on admission of 184. - Continue home NPH 40U bid - LDSS (6) Charcot foot due to diabetes mellitus Current Visit: No Status: Acute Assessment and Plan: Patient was recently discharged from the hospital 04/20 after being admitted for a post-op foot infection and hematoma requiring surgical intervention by podiatry. Was seen by ID and discharged with HH on IV antibiotics (cefepime and daptomycin). 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 Patient continues to have regular bowel movements Plan: KUB; check LFTs - Time Spent with Patient Total time spent is greater than 50% in coordination of care (as documented) at patient's floor/unit and/or counseling patient: 30 minutes Plan of Care Discussed with: patient Internal Medicine: Result - Labs CBC & Chem 7: 04/25/19 20:12 04/23/19 05:00 Labs: Short CBC 04/25/19 04/25/19 Range/Units 12:54 20:12 Hgb 9.5 L 8.9 L (12.9-16.9) g/dL Hct 28.8 L 27.2 L (37.5-50.1) % - ABG Interpretation ABG results: PT/INR, D-dimer PT 10.5 Seconds (9.4-12.1) 04/22/19 07:03 Consult Discharge Plan - Plan Referrals: Jose Rafael Morfin, DO [Primary Care Provider] - (2) Anemia Qualifiers: Anemia type: unspecified type Qualified Code(s): D64.9 - Anemia, unspecified (3) CHF exacerbation Qualifiers: Heart failure type: systolic Qualified Code(s): I50.23 - Acute on chronic systolic (congestive) heart failure (5) Type 2 diabetes mellitus with foot ulcer Qualifiers: Diabetes mellitus termination clerk insulin use: with termination clerk use Qualified Code(s): E11.621 - Type 2 diabetes mellitus with foot ulcer; L97.509 - Non- pressure chronic ulcer of other part of unspecified foot with unspecified severity; Z79.4 - senior living (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
[2019-04-27] MEDS: Heparin 25,000 UNIT/250 ML D5W 25,000 UNIT/250 ML IV.SOLN IVC SCH ×2 (02:33→17:56)
[2019-04-27] MEDS: Insulin LISPRO 300 UNITS/3 ML VIAL SQ SCH ×4 (07:10→20:34)
[2019-04-27] MEDS: Insulin NPH/REG 70/30 100 UNIT/ML (x5UNIT) SQ SCH ×2 (07:10→17:03)
[2019-04-27 08:09] LABS: Hematocrit 28.7 % (37.5-50.1); Hemoglobin 9.2 g/dL (12.9-16.9); Mean Corpuscular HGB Conc 32.1 g/dL (31.6-35.5); Mean Corpuscular Hemoglobin 28.5 pg (28.0-33.3); Mean Corpuscular Volume 88.9 fL (83.0-100.0); Mean Platelet Volume 12.6 fL (9.4-12.4); Platelet Count 146 K/mcL (140-400); Red Blood Count 3.23 M/mcL (4.19-5.50); Red Cell Distribution Width 14.2 % (11.5-14.5)
[2019-04-27 08:31] LABS: BUN/Creatinine Ratio 13 (6-26); Blood Urea Nitrogen 19 mg/dL (6-20); Calcium 8.1 mg/dL (8.6-10.3); Carbon Dioxide 23 mEq/L (23-29); Chloride 108 mEq/L (98-107); Glucose 189 mg/dL (70-105); Osmolality,Calculated 295 (280-300); Potassium 4.2 mEq/L (3.5-5.1); Sodium 139 mEq/L (136-145); eGFR For African Americans > 60 (> 60); eGFR For Non-African Americans 51 (> 60)
[2019-04-27] MEDS: Aspirin Enteric Coated 81 MG Tablet PO SCH (08:42)
[2019-04-27] MEDS: Famotidine 20 MG TABLET PO SCH (08:42)
[2019-04-27] MEDS: amLODIPine 5 MG TABLET PO SCH (08:42)
[2019-04-27] MEDS ORDERED: Propofol 500 MG/50 ML INFUS..BTL ONE (09:20)
[2019-04-27] MEDS ORDERED: *HR* Propofol 200 MG/20 ML VIAL IVP ONE (09:43)
--- NOTE | 2019-04-27 09:58 | Anesthesia Evaluation PreOp ---
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 History: Denies Any Significant HX Other Medical History: Renal (CKD stage 3), Diabetes Type II, GERD, Other (obesity BMI=41.6) Anesthesia History: No Prior Anesthetic Complications, Past Anesthesia Alcohol Use: none Drug use: none Medications and Allergies Clopidogrel [Plavix] 75 mg PO QAM 02/18/19 [History] Furosemide [Lasix] 40 mg PO QAM 02/18/19 [History] Metformin HCl [Fortamet] 1,000 mg PO BID 02/18/19 [History] Metoprolol XL (24 HR) Succ [Toprol Xl] 100 mg PO QAM 02/18/19 [History] amLODIPine [Norvasc] 5 mg PO QAM 02/18/19 [History] Aspirin [Adult Aspirin] 81 mg PO DAILY 03/24/19 [History] Atorvastatin Calcium [Lipitor] 80 mg PO HS 03/24/19 [History] HYDROcodone/Acet 5/325 mg [[place] 5-325 mg] 1 tab PO Q6H PRN 3 Days #12 tab 03/24/19 [Rx] Ondansetron ODT [Zofran ODT] 4 mg SL Q8HR PRN #12 tab.rapdis 03/24/19 [Rx] raNITIdine HCl [Zantac] 150 mg PO BID 03/24/19 [History] Amitriptyline [Elavil] 25 mg PO HS 04/13/19 [History] Losartan Potassium [Cozaar] 100 mg PO QAM 04/13/19 [History] Cefepime HCl/D5w [Cefepime-Dextrose 2 gm/50 ml] 2 gm IV Q24H 14 Days #14 mls 04/20/19 [Rx] DAPTOmycin [Daptomycin] 500 mg IV DAILY 14 Days #14 vial 04/20/19 [Rx] Insulin Aspart Prot/Insuln Asp [Novolog Mix 70-30 Vial] 40 unit SQ BID 30 Days #24 vial 04/20/19 [Rx] Allergy/AdvReac Type Severity Reaction Status Date / Time No Known Allergies Allergy Verified 04/22/19 04:41 - Meds/Allergy Pre-op Review Medications Reviewed: Yes Allergies Reviewed: Yes Beta Blockers on Current Med List: Yes If Beta Blockers taken, Date/Time (Last Dose taken): 04/27/2019 at 0526 Anesthesia Results - Labs 04/27/19 07:34 04/27/19 07:34 - Imaging EKG: report reviewed (02/08/2019 SINUS RHYTHM MODERATE INTRAVENTRICULAR CONDUCTION DELAY [110+ ms QRS DURATION) Additional studies: 10/02/2018 Echo Impressions: LVEF 35-40% with segmental left ventricular systolic dysfunction. Mildly dilated left ventricle. Mild left ventricular diastolic dysfunction. Normal right ventricular structure and function. No significant valvular dysfunction. No evidence of pulmonary hypertension. 01/13/2018 Impressions:CORONARY ANGIOGRAPHY IV Doppler BLD Flow 1st Vessel (LAD) IV Doppler BLD Flow Ad'l Vessel (RCA) Stent w/ PTCA Single Major Vessel (mid LAD ANGELIKA Synergy) Stent w/ PTCA Single Major Vessel (mid RCA ANGELIKA Synergy) Indications: Ischemic Cardiomyopathy, Systolic CHF There is severe three vessel coronary artery disease. Patient had successful PTCA/Drug-Eluting Stent placement in the mid RCA and mid LAD. 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 Optimal medical therapy of patient's disease. Aggressive risk factor modification. 11/10/2015 Limited Echo Impressions: LVEF 30-35%. Severe global and regional LV systolic dysfunction. There is no evidence of left ventricular thrombus. Definity was given. Trivial anterior pericardial effusion. Anesthesia Exam Vital Signs/O2 Sat/Glucose, Most Recent Temp Pulse Resp BP Pulse Ox 98.3 F 80 16 166/94 95 04/27/19 08:01 04/27/19 08:01 04/27/19 08:01 04/27/19 08:01 04/27/19 08:01 Blood Glucose* 192 Height: 5'8''/1.73m Weight: 273 lbs/124 kg NPO (# of Hours): 8 Pain Scale: 0 Pain Scale Used: Numeric (1 - 10) - HEENT Pupil (Motor): EOMI Mallampati: III Teeth: Edentulous Oral Opening: Greater than 3 - SALESPERSON CORSETS LOC: Oriented SALESPERSON CORSETS Motor: Normal RUE, Normal LUE, Normal RLE, Normal LLE, Normal Face SALESPERSON CORSETS Sensory: Normal: RUE, LUE, Face, Deficit: RLE, LLE - Cardiac Rhythm: Regular Murmur: None - Pulmonary Breath Sounds: bilateral Clear Respiratory Effort: Symmetrical Anesthesia Assess/Plan ASA Score: 4 Level of consciousness: Cooperative, Oriented, Tranquil Anesthetic Plan: MAC Monitoring Plan: Standard Monitors
[2019-04-27] MEDS ORDERED: Lidocaine -MPF 2% 2 ML VIAL ONE (09:59)
[2019-04-27] MEDS ORDERED: Simethicone 40 MG/0.6 ML MLS IR ONE (10:27)
--- NOTE | 2019-04-27 11:14 | Acute Care Surgery Event Note ---
Date of Encounter: 04/27/19 Time of Encounter: 10:00 Pt underwent EGD and colonscopy. EGD reveals mild hemorrhagic gastritis with punctate, superficial ulceration with small clots. Colonoscopy reveals colon polyps and scattered diverticulitis. Recommend PPI IV BID. May continue with cardiac work-up prn.
[2019-04-27] MEDS: Cefepime HCl 2,000 MG in 0.9 % Sodium Chloride Mini Bag 100 ML IVPB SCH (11:22)
[2019-04-27] MEDS: DAPTOmycin 500 MG in 0.9 % Sodium Chloride 100 ML IVPB SCH (11:22)
[2019-04-27] MEDS ORDERED: Pantoprazole 40 MG in 0.9 % Sodium Chloride Mini Bag 100 ML IVC SCH (11:30)
--- NOTE | 2019-04-27 12:56 | Internal Med Progress Note ---
Hospitalist Progress Note - Encounter Date of Encounter: 04/27/19 Time of Encounter: 12:52 - Subjective Interval History: Patient seen and examined. No acute events overnight. Patient back from colonoscopy and EGD. He has no acute complaints. - Exam Vitals: Temp Pulse Resp BP Pulse Ox 97.9 F 71 16 152/78 95 04/27/19 11:49 04/27/19 11:49 04/27/19 11:49 04/27/19 11:49 04/27/19 11:49 Exam: General: Ill-appearing and in no acute distress HEENT: No erythema of posterior pharynx. No exudates. Lymphatics: No mandibular or cervical lymphadenopathy Cardiovascular: RRR. No murmurs. No chest wall tenderness. Lungs: Basilar crackles. Regular chest rise. Abdomen: Non-tender. No rebound or gaurding. Nl bowel sounds. Extremities: 1+ edema. in RLE. LLE with wound vac in place and wrapped in NAIMA bandage c/d/i Skin: No rashes, abrasions, or contusions. Nl cap refill. Psych: Nl attention. 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 5/5 strength. Sensation to light touch and pinprick intact. - Assessment and Plan (1) NSTEMI (non-ST elevated myocardial infarction) Current Visit: Yes Status: Acute Assessment and Plan: Patient presenting with orthopnea in setting of CAD s/p 3 stents, HFrEF EF 35- 40% Troponin elevation from 0.61 to 4.09 EKG showing new T wave inversions Hb down to 7.8 Plan: Cardiology on board: plan for cath per cardiology Continue ASA, statin, BB, ARB (2) Anemia Current Visit: Yes Status: Acute Assessment and Plan: Patient's Hb 7.8; baseline may be closer to 10 No reported blood in stool Patient S/P 2 units PRBC with most recent Hb 9 Hemoccult positive Colonoscopy showed diverticulosis; EGD showed hemorrhagic gastritis with punc guzman, superficial ulceration with small clots Plan: Protonix per surgery recommendations: Drip for 8 hours than IV BID Hold Plavix; restart per cardiology Monitor H&H and transfuse to maintain Hb>9 (3) CHF exacerbation Current Visit: Yes Status: Resolved Assessment and Plan: Patient with hx of CAD s/p 3 stents on ASA/Plavix and HFrEF EF 35-40% on lasix presents with orthopnea in the setting of stable vitals, basilar crackles and LE edema on exam, BNP 974, and CXR with concerns for pulmonary edema. -Likely decompensated heart failure, and patient already has symptomatic improvement after 40 of IV Lasix -Reason for acute decompensation of heart failure may be related to worsening heart function in setting of an NSTEMI versus periprocedural hypervolemia following surgery last admission -Patient off of oxygen now; no further symptoms of CHF exacerbation PLAN: - NSTEMI investigations per above - Hold further lasix - Strict i/o's and daily weights (4) CAD in [place] artery Current Visit: No Status: Acute Assessment and Plan: see above plan (5) Type 2 diabetes mellitus with foot ulcer Current Visit: No Status: Acute Assessment and Plan: Glucose on admission of 184. - Continue home NPH 40U bid - LDSS (6) Charcot foot due to diabetes mellitus Current Visit: No Status: Acute Assessment and Plan: Patient was recently discharged from the hospital 04/20 after being admitted for a post-op foot infection and hematoma requiring surgical intervention by podiatry. Was seen by ID and discharged with HH on IV antibiotics (cefepime and daptomycin). 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 Patient continues to have regular bowel movements KUB showed constipation Symptoms resolved Plan: laxatives as needed - Time Spent with Patient Total time spent is greater than 50% in coordination of care (as documented) at patient's floor/unit and/or counseling patient: 30 minutes Plan of Care Discussed with: patient Internal Medicine: Result - Labs CBC & Chem 7: 04/27/19 07:34 04/27/19 07:34 Labs: Short CBC 04/27/19 Range/Units 07:34 WBC 6.0 (4.3-11.1) K/mcL Hgb 9.2 L (12.9-16.9) g/dL Hct 28.7 L (37.5-50.1) % Plt Count 146 (140-400) K/mcL BMP 04/27/19 07:34 Sodium 139 Potassium 4.2 Chloride 108 H Carbon Dioxide 23 BUN 19 Creatinine 1.47 H Glucose 189 H Calcium 8.1 L - ABG Interpretation ABG results: PT/INR, D-dimer PT 10.5 Seconds (9.4-12.1) 04/22/19 07:03 Consult Discharge Plan - Plan Referrals: Jose Rafael Morfin, [Primary Care Provider] - (2) Anemia Qualifiers: Anemia type: unspecified type Qualified Code(s): D64.9 - Anemia, unspecified (3) CHF exacerbation Qualifiers: Heart failure type: systolic Qualified Code(s): I50.23 - Acute on chronic systolic (congestive) heart failure (5) Type 2 diabetes mellitus with foot ulcer Qualifiers: Diabetes mellitus correction insulin use: with technician terminal and repeater use Qualified Code(s): E11.621 - Type 2 diabetes mellitus with foot ulcer; L97.509 - Non- pressure chronic ulcer of other part of unspecified foot with unspecified severity; Z79.4 - technician terminal and repeater (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
--- NOTE | 2019-04-27 13:05 | Cardiology Progress Note ---
Date of Encounter: 04/27/19 Time of Encounter: 13:00 Assessment and Plan (1) NSTEMI (non-ST elevated myocardial infarction) Current Visit: Yes Status: Acute Troponin 0.61, 4.09, 1.10. On heparin gtt. Continue ASA, Statin, BB, ARB. Plavix held for GI evaluation tomorrow. ECG with T wave inversions in leads III and aVF, new compared to earlier this month. Known CAD hx s/p PCI 01/2018. Known EF 35-40% 09/2018. Repeat TTE EF 40%, unchanged. Global LV systolic dysfunction. Moderate LVDD. RV was not well visualized. Grossly, function is normal. No evidence of phtn. No significant valvular dysfunction. There is a small inferior and inferolateral pericardial effusion present. No tamponade. LHC recommended . Patient also noted to have acute on chronic anemia HGB 7.8. S/p PRBC. Hgb now trending upward on heparin gtt. S/p EGD and colonoscopy today. Seen to have superficial ulcer with clot. Now on PPI. Okay to proceed with cardiac evaluation per GI. CKD at baseline. NPO after midnight for LHC as planned for NSTEMI. Will discuss assessment and pl an with interventionalst tomorrow prior to ordering. (2) Ischemic cardiomyopathy Current Visit: No Status: Chronic (3) CHF exacerbation Current Visit: Yes Status: Resolved Acute on chronic systolic CHF exacerbation. Known EF 35-40%. BNP 974. CXR cardiomegaly with possibly pulmonary edema. Presented with orthopnea. Received one time dose of IV Lasix with symptom improvement. CKD. Recommend strict I/Os, Na and fluid restriction, daily weights. IV lasix only as needed. Currently laying flat without difficulties. Qualifiers: Heart failure type: systolic Qualified Code(s): I50.23 - Acute on chronic systolic (congestive) heart failure (4) CKD (chronic kidney disease) stage 3, GFR 30-59 ml/min Current Visit: Yes Status: Acute Stable. (5) Anemia Current Visit: Yes Status: Acute S/p GI evaluation. Patient seen to have iron deficiency anemia and superficial ulcers. HGB 9.2 today. S/p 1 unit PRBC earlier in stay. Keeb Hg above 8.0 in setting of NSTEMI. Qualifiers: Anemia type: unspecified type Qualified Code(s): D64.9 - Anemia, unspecified Discussion w patient/family: The assessment and plan as outlined above was discussed with the patient and/or family members who expressed understanding and agreement. All questions were answered. Thank you for involving us in the care of your patient. Please call with any questions. Subjective Principal diagnosis: NSTEMI Interval history: Mr. Vargas is resting in bed with at bedside. Denies chest pain or SOB. Objective Vital Signs, Last 4 Hours Temp Pulse Resp BP Pulse Ox 04/27/19 11:49 97.9 F 71 16 152/78 95 04/27/19 11:36 97.9 F 72 16 145/79 95 04/27/19 10:18 98 F 76 18 158/83 96 Results 04/27/19 07:34 04/27/19 07:34 Lab Results 04/27/19 04/27/19 07:34 07:34 WBC 6.0 Hgb 9.2 L Hct 28.7 L Plt Count 146 Sodium 139 Potassium 4.2 Chloride 108 H Carbon Dioxide 23 BUN 19 Creatinine 1.47 H Glucose 189 H Calcium 8.1 L Consult Discharge Plan - Plan Referrals: Jose Rafael Morfin DO [Primary Care Provider] -
[2019-04-27] MEDS: *HR* Heparin 5,000 UNIT/ML VIAL IVP PRN (14:26)
[2019-04-27] MEDS: Pantoprazole 40 MG VIAL IVP SCH (17:03)
[2019-04-28] MEDS: Pantoprazole 40 MG VIAL IVP SCH ×2 (06:05→16:28)
[2019-04-28 06:16] LABS: Hematocrit 28.8 % (37.5-50.1); Hemoglobin 9.1 g/dL (12.9-16.9); Mean Corpuscular HGB Conc 31.6 g/dL (31.6-35.5); Mean Corpuscular Hemoglobin 28.7 pg (28.0-33.3); Mean Corpuscular Volume 90.9 fL (83.0-100.0); Mean Platelet Volume 12.5 fL (9.4-12.4); Platelet Count 156 K/mcL (140-400); Red Blood Count 3.17 M/mcL (4.19-5.50); Red Cell Distribution Width 14.5 % (11.5-14.5); White Blood Count 6.3 K/mcL (4.3-11.1)
[2019-04-28 06:25] LABS: Calcium 8.3 mg/dL (8.6-10.3); Potassium 4.2 mEq/L (3.5-5.1)
[2019-04-28] MEDS: Insulin LISPRO 300 UNITS/3 ML VIAL SQ SCH ×4 (07:47→21:32)
[2019-04-28] MEDS: amLODIPine 5 MG TABLET PO SCH (07:51)
[2019-04-28] MEDS: Aspirin Enteric Coated 81 MG Tablet PO SCH (07:51)
[2019-04-28] MEDS: Famotidine 20 MG TABLET PO SCH (07:51)
[2019-04-28] MEDS: Insulin NPH/REG 70/30 100 UNIT/ML (x5UNIT) SQ SCH ×2 (07:53→16:28)
--- NOTE | 2019-04-28 08:52 | Event Note ---
Date of Encounter: 04/28/19 Time of Encounter: 08:00 - Cardiology Event Note Selected Entries 04/28/19 04:45 Temperature 98.5 F Pulse Rate 92 Respiratory Rate 18 Blood Pressure 148/80 O2 Sat by Pulse Oximetry 90 Oxygen Delivery Method Room Air Laboratory Tests 04/22/19 04/22/19 04/22/19 05:22 05:22 16:27 Hgb 8.5 L Hct 27.0 L Creatinine 1.83 H Est GFR (Non-Af Amer) 39 L Troponin I 0.61 H* 4.09 H* Stool Occult Blood 04/23/19 04/24/19 04/28/19 08:35 18:35 05:33 Hgb 9.1 L Hct 28.8 L Creatinine Est GFR (Non-Af Amer) Troponin I 1.10 H* Stool Occult Blood Positive A 04/28/19 05:33 Hgb Hct Creatinine 1.67 H Est GFR (Non-Af Amer) 44 L Troponin I Stool Occult Blood NSTEMI with peak trop 4.09. GI eval complete and ok to proceed with cardiac w/u from their perspective. Has received 2 units PRBCs during stay. Appears to be tolerating Hep gtt since 04/24/19. Denies any active bleeding this a.m. H&H stable. Kidney function around baseline. Discussed and reviewed with Dr. Reddy, plan for [facility] today. Patient and family verbalized understanding and agreed with plan. HAS-BLED Score - Score Bleeding: Prior major bleeding or predisposition to bleeding Medication usage predisposing to bleeding: Antiplatelet agents, NSAIDs, Anticoagulants Score: 2
--- NOTE | 2019-04-28 11:25 | Podiatry Progress Note ---
Date of Encounter: 04/28/19 Time of Encounter: 10:30 - Assessment and Plan (1) Charcot foot due to diabetes mellitus Current Visit: No Status: Acute Assessment: Surgical wound noted to medial left foot, dorsal left foot, and plantar 1st submetatarsal S/P incision and drainage left foot Dr. Alvarez 04/14/[address], suction at 125 mmHG, serosanguinous drainage noted in canister Doppler pulses Surgical culture returned VRE susceptible to linezolid Blood cultures, no growth WBC 6.3, afebrile 2/4 edema noted left foot Plan: Wound vac changed, see below Patient is not admitted related to the foot, podiatry will continue to follow and monitor as needed, will need home wound vac upon discharge Patient was discharged on cefepime and daptomycin, ID consulted, appreciate recommendations Social Service consult to secure home care and dressing changes Follow up with Dr. Alvarez in Wound Care 1 week or less after discharge, please schedule appointment prior to discharge Removed wound vac without complication. Cleansed with 0.9 NS. Prepped skin with skin prep. Painted macerated tissue with betadine. Placed 4x4 dry gauze to macerated tissue. Placed tegaderm drape in window pane fashion. Placed black granulafoam to wound bed. Covered with tegaderm drape. Placed to suction at -125 mmHG. Good seal noted. Secured with drain sponge, kerlix, and NAIMA wrap. Subjective Principal diagnosis: NSTEMI Interval history: Patient awake in bed. at bedside. Denies any fevers, chills, nausea, vomiting, or diarrhea. Denies any calf pain, chest pain, or shortness of breath. Reports he is getting a heart cath today and is hoping to get discharged tomorrow. Discussed needing home wound vac prior to d/c. Verbalized joann meek. No other questions or concerns at this time Objective - Vital Signs Vital Signs: Vital Signs Temp Pulse Resp BP Pulse Ox 04/28/19 08:46 98.3 F 80 18 165/84 93 04/28/19 04:45 98.5 F 92 18 148/80 90 04/28/19 00:28 98.3 F 94 18 152/81 93 04/27/19 20:20 98.1 F 90 16 156/79 95 04/27/19 20:18 97 04/27/19 16:49 98.9 F 85 19 170/90 97 04/27/19 11:49 97.9 F 71 16 152/78 95 04/27/19 11:36 97.9 F 72 16 145/79 95 Intake and Output 04/27/19 04/28/19 04/28/19 23:59 07:59 15:59 Intake Total 289.9 / 929.0 0 / 0 Output Total 75 / 75 Balance 289.9 / 929.0 0 / -75 -75 / -75 Intake: IV Fluids 289.9 / 899.0 0 / 0 Heparin 25,000 UNIT/250 ML D5W 189.9 / 599.0 0 / 0 25,000 unit In 250 ml @ 8.3 UNIT/KG/HR 9.977 mls/hr IVC . Q24H JORDY Rx#:[id number] Protonix 40 MG In 0.9 % Sodium 100 / 100 Chloride (Mini-Bag +) 100 ML @ 20 mls/hr IVC .Q5H JORDY Rx#: [id number] Oral 0 / 0 Output: Wound Drainage 75 / 75 Left Medial Foot 75 / 75 Other: Weight 123 kg Blood Glucose* 266 226 Patient Weight 04/28/19 23:59 Weight 123 kg - Exam Exam: Constitiutional: Alert and oriented x 3. Well nourished. No acute distress noted Vascular: doppler DP/PT LLE, CFT <3 sec to all digits LLE, warm to warm from tibia to toes LLE, no calf pain with squeeze LLE Neurologic: Absent sensation to touch, normal plantar response Dermatologic: Left ulceration noted to medial aspect of foot with 50 % granulation tissue and 50% fibrous tissue noted, tunneling noted at 2 oclock, measuring 4 cm deep, sutures noted to 1st metatarsal with maceration, painted with betadine, ulceration noted to 1st submetatarsal, maceration noted to periwound Musculoskeletal: 3/5 muscle strength and normal tone LLE - Lab Result Diagrams: 04/28/19 05:33 04/28/19 05:33 Labs: Abnormal lab results RBC 3.17 M/mcL (4.19-5.50) L 04/28/19 05:33 Hgb 9.1 g/dL (12.9-16.9) L 04/28/19 05:33 Hct 28.8 % (37.5-50.1) L 04/28/19 05:33 MCHC 31.5 g/dL (31.6-35.5) L 04/22/19 05:22 RDW 14.6 % (11.5-14.5) H 04/23/19 05:00 Plt Count 130 K/mcL (140-400) L 04/23/19 05:00 MPV 12.5 fL (9.4-12.4) H 04/28/19 05:33 Heparin Anti-Xa, Unfract 0.78 IU/mL (0.30-0.70) H 04/28/19 03:35 Chloride 108 mEq/L (98-107) H 04/27/19 07:34 BUN 29 mg/dL (6-20) H 04/23/19 05:00 Creatinine 1.67 mg/dL (0.70-1.30) H 04/28/19 05:33 Est GFR ( Amer) 53 (> 60) L 04/28/19 05:33 Est GFR (Non-Af Amer) 44 (> 60) L 04/28/19 05:33 Glucose 230 mg/dL (70-105) H 04/28/19 05:33 POC Glucose 266 mg/dL (70-99) H 04/27/19 20:29 Calcium 8.3 mg/dL (8.6-10.3) L 04/28/19 05:33 Iron 20 mcg/dL (65-175) L 04/22/19 20:36 % Saturation 11 % (20-55) L 04/22/19 20:36 Transferrin 135 mg/dL (203-362) L 04/22/19 20:36 Alkaline Phosphatase 108 Units/L (34-104) H 04/25/19 01:26 Troponin I 1.10 ng/mL (< 0.04) H* 04/23/19 08:35 B-Natriuretic Peptide 974 pg/mL (Less than 100) H 04/22/19 05:22 Albumin 3.1 g/dL (3.5-5.7) L 04/25/19 01:26 Albumin/Globulin Ratio 0.9 (1.1-2.2) L 04/25/19 01:26 Stool Occult Blood Positive (Negative) A 04/24/19 18:35 Crossmatch See Detail 04/23/19 08:40 Consult Discharge Plan - Plan Referrals: Jose Rafael Morfin DO [Primary Care Provider] -
[2019-04-28] MEDS: DAPTOmycin 500 MG in 0.9 % Sodium Chloride 100 ML IVPB SCH (12:28)
[2019-04-28] MEDS: Cefepime HCl 2,000 MG in 0.9 % Sodium Chloride Mini Bag 100 ML IVPB SCH (12:29)
[2019-04-28] MEDS: Heparin 25,000 UNIT/250 ML D5W 25,000 UNIT/250 ML IV.SOLN IVC SCH (13:03)
[2019-04-28] MEDS ORDERED: Heparin 1,000 UNITS/500 mL 500 ML ONE (14:22)
[2019-04-28] MEDS ORDERED: 0.9 % Sodium Chloride 1,000 ML ONE ×2 (14:22→14:34)
[2019-04-28] MEDS ORDERED: Nitroglycerin 1,000 MCG/10 ML VIAL IV ONE (14:23)
[2019-04-28] MEDS ORDERED: *HR* Heparin 10,000 UNIT/10 ML VIAL ONE (14:23)
[2019-04-28] MEDS ORDERED: Iopamidol 125 ML INFUS..BTL ONE (14:23)
[2019-04-28] MEDS ORDERED: Verapamil 5 MG/2 ML VIAL ONE (14:43)
[2019-04-28] MEDS ORDERED: *HR* Midazolam HCl 2 MG/2 ML VIAL ONE (14:44)
[2019-04-28] MEDS ORDERED: *HR* FentaNYL (PF) 100 MCG/2 ML VIAL ONE (14:44)
--- NOTE | 2019-04-28 14:51 | Pre-Sedation Evaluation ---
Pre-sedation evaluation - Pre-sedation checklist Date of procedure: 04/28/19 Procedure: heart cath Recent Vitals: Last Vital Signs Temp 98.3 F 04/28/19 08:46 Pulse 85 04/28/19 11:42 Resp 18 04/28/19 11:42 BP 163/76 04/28/19 11:42 Pulse Ox 90 04/28/19 11:42 H&P (including ROS) documented in medical record: Yes Previous reaction to sedatives/anesthetics: No Dietary Status: NPO after Midnight Dentition: No loose teeth or bridges, full dentition ASA Classification *see protocol: CLASS II-Mild systemic disease Plan of Care: Pt appropriate candidate for procedure/moderate/conscious sedation, Risks/benefits of procedure/sedation discussed w/ patient/family Cardiac Registry (Cardio Only) - Functional Capacity Functional Capacity: >=4 METS with symptoms - Clincal Frailty Scale Clinical Frailty Scale: Managing Well
--- NOTE | 2019-04-28 15:25 | Internal Med Progress Note ---
Hospitalist Progress Note - Encounter Date of Encounter: 04/28/19 Time of Encounter: 09:15 - Subjective Interval History: Patient today denies any CP, palpitations, SOB, cough, N/V/D. Does have some mild leg swelling. Pt is lying comfortably in bed while podiatry is re-dressing his L foot wound. No fevers. Anticipating left heart cath today. - Exam Vitals: Temp Pulse Resp BP Pulse Ox 98.3 F 85 18 163/76 90 04/28/19 08:46 04/28/19 11:42 04/28/19 11:42 04/28/19 11:42 04/28/19 11:42 Exam: General: Ill-appearing and in no acute distress Cardiovascular: RRR. No murmurs. No chest wall tenderness. Lungs: Trace bibasilar crackles. Regular chest rise. Abdomen: Non-tender. No rebound or gaurding. Nl bowel sounds. Extremities: 1+ edema. in RLE. LLE with wound vac in place and wrapped in NAIMA bandage c/d/i Skin: No rashes, abrasions, or contusions other than noted above. Psych: Good attention and memory. A&Ox3 Neuro: validation architect II-XII intact. 5/5 strength. Speech fluent. - Summary of Assessment and Plan Summary of Assessment and Plan: Pepe Vargas is a 49 M w hx CAD s/p PCIx3 on DAPT, HFrEF EF 35% on lasix 40 daily, IDDM2 c/b charcot foot, who p/w orthopnea, pedal edema, bibasilar crackles, BNP 1000 and trop 4, ECG w TWI, concerning for NSTEMI causing CHF exacerbation. NSTEMI: - hep gtt - DAPT, statin - Cardio consult, plan for [facility] today Acute on chronic HFrEF 35%: - resume home lasix 40 daily - home losartan 100 daily - lopressor [address] of home toprol 100 daily Acute on chronic normocytic anemia: 2/2 hemorrhagic gastritis seen during EGD on 04/27 - PPI daily - maintain T&C, keep Hb >8 Chronic infected diabetic foot ulcer: on cefepime and dapto as previously prescribed, podiatry following for wound management CAD: DAPT and statin as above DM2: insulin dependent, uncontrolled, w charcot foot and diabetic ulcer; continue basal + SSI CKD3b: noted, renally dose and watch for injury following dye from [facility] Morbid obesity: BMI 41 PPx: hep gtt Tele: yes Activity: up ad glory FEN: cardiac ADA 1.5L, no MIVF Lines: PIV Consults: podiatry, cardio Code: Full Dispo: patient requires inpatient eval and management at this time, anticipate 1-2 days, will be homegoing w Internal Medicine: Result - Labs CBC & Chem 7: 04/28/19 05:33 04/28/19 05:33 Labs: Short CBC 04/28/19 Range/Units 05:33 WBC 6.3 (4.3-11.1) K/mcL Hgb 9.1 L (12.9-16.9) g/dL Hct 28.8 L (37.5-50.1) % Plt Count 156 (140-400) K/mcL BMP 04/28/19 05:33 Sodium 139 Potassium 4.2 Chloride 106 Carbon Dioxide 25 BUN 20 Creatinine 1.67 H Glucose 230 H Calcium 8.3 L - ABG Interpretation ABG results: PT/INR, D-dimer PT 10.5 Seconds (9.4-12.1) 04/22/19 07:03 Consult Discharge Plan - Plan Referrals: Jose Rafael Morfin DO [Primary Care Provider] -
[2019-04-29] MEDS: Pantoprazole 40 MG VIAL IVP SCH (06:09)
--- NOTE | 2019-04-29 07:50 | Discharge Summary ---
- NOTES TO OUTPATIENT PROVIDER Notes to Outpatient Provider: Admitted for CHF/NSTEMI and found to have bleeding peptic ulcers. On PPI. Needs outpatient sleep study. Lasix doubled and will need repeat labs and volume assessment. Orders not resulted at time of discharge: Pending orders 04/27/19 10:33 Surgical Pathology [PTH] Routine Date of Encounter: 04/29/19 Time of Encounter: 07:47 Hospital course: Dear Doctors, I recently had the opportunity to care for this patient during their recent hospital stay at [facility]. Pepe Vargas is a 49 M w hx CAD s/p PCIx3 on DAPT, HFrEF 35% on lasix 40 daily, IDDM2 c/b charcot foot and chronic infected foot wound on IV abx, who presented at time of admission with episode of orthopnea. He was found to have pedal edema, bibasilar crackles, BNP 1000 and trop 4, ECG w TWI, concerning for NSTEMI causing CHF exacerbation. In the hospital, patient kept on heparin gtt until LHC, which showed L circ re- occlusion but with collaterals and thus no intervention performed. Patient diuresed well with IV lasix initially, and was converted to PO lasix at increased dose to continue ongoing diuresis. Of note, patient could not undergo LHC immediately due to acute anemia for which EGD/colonoscopy obtained which showed several peptic ulcers. PPI therapy initiated, pt transfused, and then remained stable, allowing for eventual LHC. On day of discharge, pt Hb stable, without chest pain, and swelling controlled/improving. Notably, he did have an episode of orthopnea during night prior to discharge, felt to represent apneic episode and thus patient needs evaluated for YASH/OHS. Dx: acute on chronic HFpEF, acute blood loss anemia 2/2 peptic ulcer disease, NSTEMI Pertinent tests/consults: Cardio for LHC which was not amenable to intervention, GI for endoscopy showing peptic ulcer disease, Podiatry for wound care of his chronically infected diabetic foot ulcer for which he gets IV cefepime and daptomycin Follow up: PCP 1 week, Cardio 1-2 weeks, GI 4-6 weeks, Podiatry and ID as previously scheduled Tests pending: none Med changes: - new omeprazole 40 daily - increase lasix to 40 po bid x1 week then resume lasix 40 po daily Mental status: awake, fully oriented Code status: Speech Instructor spent on discharge: 35 minutes It has been my pleasure participating in this patient's care. Please contact me with any questions or concerns regarding their hospital stay. Sincerely, Garrison Cameron MD - Discharge Medications Prescriptions: New Omeprazole [PriLOSEC] 40 mg PO DAILY #30 cap Continued amLODIPine [Norvasc] 5 mg PO QAM Metformin HCl [Fortamet] 1,000 mg PO BID Metoprolol XL (24 HR) Succ [Toprol Xl] 100 mg PO QAM Clopidogrel [Plavix] 75 mg PO QAM Atorvastatin Calcium [Lipitor] 80 mg PO HS Aspirin [Adult Aspirin] 81 mg PO DAILY raNITIdine HCl [Zantac] 150 mg PO BID Ondansetron ODT [Zofran ODT] 4 mg SL Q8HR PRN #12 tab.rapdis PRN Reason: Nausea Amitriptyline [Elavil] 25 mg PO HS Losartan Potassium [Cozaar] 100 mg PO QAM Cefepime HCl/D5w [Cefepime-Dextrose 2 gm/50 ml] 2 gm IV Q24H 14 Days #14 mls DAPTOmycin [Daptomycin] 500 mg IV DAILY 14 Days #14 vial Insulin Aspart Prot/Insuln Asp [Novolog Mix 70-30 Vial] 40 unit SQ BID 30 Days #24 vial Changed Furosemide [Lasix] 40 mg PO BID #37 tab Discontinued HYDROcodone/Acet 5/325 mg [[place] 5-325 mg] 1 tab PO Q6H PRN 3 Days #12 tab PRN Reason: Pain Home Medications: Clopidogrel [Plavix] 75 mg PO QAM 02/18/19 [History] Metformin HCl [Fortamet] 1,000 mg PO BID 02/18/19 [History] Metoprolol XL (24 HR) Succ [Toprol Xl] 100 mg PO QAM 02/18/19 [History] amLODIPine [Norvasc] 5 mg PO QAM 02/18/19 [History] Aspirin [Adult Aspirin] 81 mg PO DAILY 03/24/19 [History] Atorvastatin Calcium [Lipitor] 80 mg PO HS 03/24/19 [History] Ondansetron ODT [Zofran ODT] 4 mg SL Q8HR PRN #12 tab.rapdis 03/24/19 [Rx] raNITIdine HCl [Zantac] 150 mg PO BID 03/24/19 [History] Amitriptyline [Elavil] 25 mg PO HS 04/13/19 [History] Losartan Potassium [Cozaar] 100 mg PO QAM 04/13/19 [History] Cefepime HCl/D5w [Cefepime-Dextrose 2 gm/50 ml] 2 gm IV Q24H 14 Days #14 mls 04/20/19 [Rx] DAPTOmycin [Daptomycin] 500 mg IV DAILY 14 Days #14 vial 04/20/19 [Rx] Insulin Aspart Prot/Insuln Asp [Novolog Mix 70-30 Vial] 40 unit SQ BID 30 Days #24 vial 04/20/19 [Rx] Furosemide [Lasix] 40 mg PO BID #37 tab 04/29/19 [Rx] Omeprazole [PriLOSEC] 40 mg PO DAILY #30 cap 04/29/19 [Rx] Allergies/Adverse Reactions: Allergy/AdvReac Type Severity Reaction Status Date / Time No Known Allergies Allergy Verified 04/22/19 04:41 Date of admission: 04/22/19 11:36 Primary care physician: Jose Rafael Morfin Consults: 04/22/19 06:30 Consult to Cardiology [CONS] Stat Comment: Consulting Provider: Cardiology [place] Reason for Consult: elevated troponin, ekg changes, chf exacerbation Call Completed: Yes 04/22/19 07:54 Consult to Wound Care [CONS] Routine Reason for Consult: Charcot foot with recent surgical debriedment Call Completed: No 04/22/19 16:28 Consult to Podiatry [CONS] Routine Consulting Provider: Podiatry [facility] Reason for Consult: recently discharged patient with wound vac, wound nurse requesting eval while here Call Completed: No 04/23/19 09:38 Consult to Surgery [CONS] Routine Consulting Provider: Acute Care Surgery Reason for Consult: Hb 7.8; consult for upper/lower endoscopy prior to cath Call Completed: Yes 04/27/19 08:31 Consult to Cardiac Rehabilitation-Phase1 [CONS] Stat Comment: Reason for Consult: NSTEMI Call Completed: Yes - Constitutional Vitals: Temp Pulse Resp BP Pulse Ox 98.6 F 91 16 154/70 90 04/29/19 07:14 04/29/19 07:14 04/29/19 07:14 04/29/19 07:14 04/29/19 07:14 Exam: General: chronically ill-appearing and in no acute distress Cardiovascular: RRR. No murmurs. No chest wall tenderness. Lungs: Trace bibasilar crackles. Regular chest rise. Abdomen: Non-tender. No rebound or gaurding. Nl bowel sounds. Extremities: 1+ edema. in RLE. LLE with wound vac in place and wrapped in NAIMA bandage c/d/i Skin: No rashes, abrasions, or contusions other than noted above. Psych: Good attention and memory. A&Ox3 Neuro: product evangelist II-XII intact. 5/5 strength. Speech fluent. Able to ambulate - Patient Status Disposition: Home Health Service Condition: Fair Functional capacity at discharge: independent ambulation Overall status at discharge: patient is progressing back to baseline - Discharge Instructions Instructions: Furosemide (By mouth), Omeprazole (By mouth) Follow Up With: Leroy Reddy MD [Partnered Physician] - (1-2 weeks Cardio will call for an appt.) Jose Rafael Morfin DO [Primary Care Provider] - (1 week) Hussein Alvarez DPM [Partnered Physician] - 05/05/19 10:00 am (Please follow up as schedule...) Elo De La O [Partnered Physician] - 06/01/19 8:30 am (4-6 weeks) Avel Holcomb MD [Partnered Physician] - (Please call for follow up appointment date/time.) - Diet and Activity Activity: resume usual activities as tolerated Diet: diabetic diet
[2019-04-29 08:12] LABS: Hematocrit 27.6 % (37.5-50.1); Hemoglobin 8.8 g/dL (12.9-16.9); Mean Corpuscular HGB Conc 31.9 g/dL (31.6-35.5); Mean Corpuscular Hemoglobin 29.6 pg (28.0-33.3); Mean Corpuscular Volume 92.9 fL (83.0-100.0); Mean Platelet Volume 12.1 fL (9.4-12.4); Platelet Count 144 K/mcL (140-400); Red Blood Count 2.97 M/mcL (4.19-5.50); Red Cell Distribution Width 14.5 % (11.5-14.5); White Blood Count 7.6 K/mcL (4.3-11.1)
[2019-04-29 08:32] LABS: BUN/Creatinine Ratio 12 (6-26); Blood Urea Nitrogen 18 mg/dL (6-20); Calcium 8.1 mg/dL (8.6-10.3); Carbon Dioxide 26 mEq/L (23-29); Chloride 106 mEq/L (98-107); Glucose 209 mg/dL (70-105); Magnesium 2.1 mg/dL (1.6-2.6); Osmolality,Calculated 296 (280-300); Potassium 4.2 mEq/L (3.5-5.1); Sodium 139 mEq/L (136-145); eGFR For African Americans > 60 (> 60); eGFR For Non-African Americans 51 (> 60)
[2019-04-29] MEDS ORDERED: Furosemide 40 MG TABLET PO SCH (09:00)
[2019-04-29] MEDS: Famotidine 20 MG TABLET PO SCH (09:01)
[2019-04-29] MEDS: Aspirin Enteric Coated 81 MG Tablet PO SCH (09:01)
[2019-04-29] MEDS: amLODIPine 5 MG TABLET PO SCH (09:01)
[2019-04-29] MEDS: Insulin LISPRO 300 UNITS/3 ML VIAL SQ SCH ×2 (09:02→11:45)
[2019-04-29] MEDS: Insulin NPH/REG 70/30 100 UNIT/ML (x5UNIT) SQ SCH (09:02)
[2019-04-29] MEDS ORDERED: Furosemide 40 MG/4 ML VIAL IVP ONE (09:38)
--- NOTE | 2019-04-29 10:08 | Cardiology Progress Note ---
Date of Encounter: 04/29/19 Time of Encounter: 10:00 Assessment and Plan (1) NSTEMI (non-ST elevated myocardial infarction) Current Visit: Yes Status: Acute Troponin 0.61, 4.09, 1.10. On heparin gtt. Continue ASA, Statin, BB, ARB, plavix. ECG with T wave inversions in leads III and aVF, new compared to earlier this month. Known CAD hx s/p PCI 01/2018. Known EF 35-40% 09/2018. Repeat TTE EF 40%, unchanged. Global LV systolic dysfunction. Moderate LVDD. RV was not well visualized. Grossly, function is normal. No evidence of phtn. No significant valvular dysfunction. There is a small inferior and inferolateral pericardial effusion present. No tamponade. [facility] completed and shows 100% ISR in the mLCX artery with collaterals. 50% stenosis mLAD, 60% pRCA. Continued medical management recommended. Add imdur. Continue asa, statin, bb, and plavix as tolerated. Monitor HGB. Denies chest pain. C/o SOB and cough overnight agree with IV lasix and restarting oral home dose. He feels better this morning. Out-pt f/u will be coordinated. Please call with questions, cardiology will sign off. (2) Ischemic cardiomyopathy Current Visit: No Status: Chronic (3) CHF exacerbation Current Visit: Yes Status: Resolved Acute on chronic systolic CHF exacerbation. Known EF 35-40%. BNP 974. CXR cardiomegaly with possibly pulmonary edema. Presented with orthopnea. Received one time dose of IV Lasix with symptom improvement initially. With CKD and pending [facility] lasix held. Reports orthopnea, SOB, cough overnight. Agree with IV lasix today and resuming home med. Symptoms improved. Non-pitting pedal edema seen. Recommend strict I/Os, Na and fluid restriction, daily weights. Qualifiers: Heart failure type: systolic Qualified Code(s): I50.23 - Acute on chronic systolic (congestive) heart failure (4) CKD (chronic kidney disease) stage 3, GFR 30-59 ml/min Current Visit: Yes Status: Acute Stable. (5) Anemia Current Visit: Yes Status: Acute S/p GI evaluation. Patient seen to have iron deficiency anemia and superficial ulcers. HGB 8.8 today. S/p 1 unit PRBC earlier in stay. Keeb Hg above 8.0 in setting of NSTEMI. Qualifiers: Anemia type: unspecified type Qualified Code(s): D64.9 - Anemia, unspecified Discussion w patient/family: The assessment and plan as outlined above was discussed with the patient and/or family members who expressed understanding and agreement. All questions were answered. Thank you for involving us in the care of your patient. Please call with any questions. Subjective Principal diagnosis: NSTEMI Interval history: Mr. Vargas is resting in bed with at bedside. Denies chest pain or SOB. Objective Vital Signs, Last 4 Hours Temp Pulse Resp BP Pulse Ox 04/29/19 07:14 98.6 F 91 16 154/70 90 Results 04/29/19 07:59 04/29/19 07:59 Lab Results 04/28/19 04/29/19 04/29/19 05:33 07:59 07:59 WBC 7.6 Hgb 8.8 L Hct 27.6 L Plt Count 144 Sodium 139 139 Potassium 4.2 4.2 Chloride 106 106 Carbon Dioxide 25 26 BUN 20 18 Creatinine 1.67 H 1.47 H Glucose 230 H 209 H Calcium 8.3 L 8.1 L Magnesium 2.1 Consult Discharge Plan - Plan Referrals: Leroy Reddy MD [Partnered Physician] - (1-2 weeks) Jose Rafael Morfin DO [Primary Care Provider] - (1 week) Elo De La O [Partnered Physician] - (4-6 weeks) Prescriptions: Omeprazole [PriLOSEC] 40 mg PO DAILY #30 cap Transmission Status: Received by [facility]
--- NOTE | 2019-04-29 11:26 | Physician Discharge Referral ---
Home Health/Hosp Referral Info Transfer to: Home Health Provider in Charge Post Discharge: PCP - Respiratory Orders Smoking Cessation: Smoking cessation has been advised. For more information, call the [place] Tobacco Quit Line at 5-433-NUNW-NOW. - Diet/Nutrition Diet/Nutrition Orders: No Concentrated Sweets - Activity Activity Orders: Up ad glory - Services Needed Following services are medically necessary services: Nursing (for wound and wound vac management) - Transfer Medications Prescriptions: Furosemide [Lasix] 40 mg PO BID #37 tab Transmission Status: Pending to [facility] Omeprazole [PriLOSEC] 40 mg PO DAILY #30 cap Transmission Status: Received by [facility] Home Medications: Clopidogrel [Plavix] 75 mg PO QAM 02/18/19 [History] Metformin HCl [Fortamet] 1,000 mg PO BID 02/18/19 [History] Metoprolol XL (24 HR) Succ [Toprol Xl] 100 mg PO QAM 02/18/19 [History] amLODIPine [Norvasc] 5 mg PO QAM 02/18/19 [History] Aspirin [Adult Aspirin] 81 mg PO DAILY 03/24/19 [History] Atorvastatin Calcium [Lipitor] 80 mg PO HS 03/24/19 [History] Ondansetron ODT [Zofran ODT] 4 mg SL Q8HR PRN #12 tab.rapdis 03/24/19 [Rx] raNITIdine HCl [Zantac] 150 mg PO BID 03/24/19 [History] Amitriptyline [Elavil] 25 mg PO HS 04/13/19 [History] Losartan Potassium [Cozaar] 100 mg PO QAM 04/13/19 [History] Cefepime HCl/D5w [Cefepime-Dextrose 2 gm/50 ml] 2 gm IV Q24H 14 Days #14 mls 04/20/19 [Rx] DAPTOmycin [Daptomycin] 500 mg IV DAILY 14 Days #14 vial 04/20/19 [Rx] Insulin Aspart Prot/Insuln Asp [Novolog Mix 70-30 Vial] 40 unit SQ BID 30 Days #24 vial 04/20/19 [Rx] Furosemide [Lasix] 40 mg PO BID #37 tab 04/29/19 [Rx] Omeprazole [PriLOSEC] 40 mg PO DAILY #30 cap 04/29/19 [Rx] Allergies/Adverse Reactions: Allergy/AdvReac Type Severity Reaction Status Date / Time No Known Allergies Allergy Verified 04/22/19 04:41 Certification: Further, I certify that my clinical findings support that this patient is homebound (i.e. absences from home require considerable and taxing effort and are for medical reasons or gnosticism services or infrequently or short duration when for other reasons) because: Homebound Reason: Patient requires assistance of a person or device to safely leave home Attestation: My signature below is to certify that this patient is under my care and that I, or nurse practitioner, or a physician's cafeteria assistant working with me, has a [id number] encounter with this patient.
[2019-04-29 11:39] VITALS: BP 162/86
[2019-04-29] MEDS: DAPTOmycin 500 MG in 0.9 % Sodium Chloride 100 ML IVPB SCH (11:43)
[2019-04-29] MEDS: Cefepime HCl 2,000 MG in 0.9 % Sodium Chloride Mini Bag 100 ML IVPB SCH (11:44)
--- NOTE | 2019-05-07 09:02 | Invasive Diagnostic Lab Proc ---
Name: Pepe Vargas Date of Study: 04/28/2019 Date: 1970 Ht: 68.0in Medical Record#: [id number] Age: 49 Wt: 271.61lb Gender: Male BSA: 2.33 Order #: [id number] BMI: 41.31 Physicians Procedure Physician: Leroy Reddy MD, [facility] Referring MD: Referring MD: Staff Name Position Time In Sites, Carlyn RT (R) Monitor 02:32 PM Mabel Rey RT (R) Scrub 02:32 PM Eric Acevedo RN Transport Coordinator 02:32 PM Indications Indication Non-Stemi Procedures Performed Procedure L HRT ARTERY/VENTRICLE ANGIO Pre-Procedure Checklist Informed consent is complete signed and on chart. H&P is on chart. ID band is on and ID verified with patient. Patient NPO for procedure The procedure was described for the patient and questions were answered. Blood Pressure: 165/84 ECG is on chart. Rhythm: NSR Plan of Care Patient will tolerate the procedure without complications. Adequate level of comfort will be maintained. Hemodynamics will remain stable Patient will recover from procedure without complications. Respiratory function will be maintained. Cardiac rhythm will remain stable. Patient temperature will be maintained. Patient and/or family have verbalized understanding of the procedure. Patient Education Chief Complaint/Reason for Test: Cardiac Cath Developmental Category: Adult (18-64 years) Developmentally Appropriate for Age: Yes Learning Barriers: None Education Needs: Procedure Education Method: Verbal Information Taught: Cardiac Cath Educational Evaluation: Able to repeat information Intravenous Access Time IV Size Location DC'd Fluid/Drip Rate Units RN 02:31 PM 20g 1 /" Patent On Arrival Lt Arm 0.9NaCl 50 ml/hr Zeny Shukla RN Allergies No Known Allergies Vital Signs Time BP (mmHg) HR (bpm) O2 Sat. RR (bpm) LOC 02:39 PM / % 5 = Fully awake and oriented or at pre-proc level 02:39 PM / % 4 = Oriented but drowsy 02:45 PM 176 / 93 78 100 % 18 02:49 PM 178 / 106 80 94 % 21 02:54 PM 181 / 110 80 95 % 18 02:59 PM 173 / 104 80 97 % 18 03:04 PM 149 / 102 82 88 % 20 03:09 PM 166 / 99 83 94 % 23 03:14 PM 163 / 102 81 % 20 Procedural Medications Time Medication Dose Units Method Given By 02:35 PM Oxygen 2 L/min nasal cannula Eric Acevedo RN 02:44 PM Versed 2 mg Intravenous Eric Acevedo RN 02:45 PM Fentanyl 50 mcg Intravenous Eric Acevedo RN 02:57 PM Lidocaine 2% 10 ml Subcutaneous Leroy Reddy MD, FAC 02:58 PM Heparin 1000 units Nitroglycerin 200 mcg Verapamil 2.5 mg Intraarterial Leroy Reddy MD, FAC 03:04 PM Oxygen 4 L/min nasal cannula Eric Acevedo RN ASA Classification: CLASS II- Mild systemic disease (i.e. well-controlled diabetes, hypertension, asthma, cigarette smoking) Marta Score Preprocedure Postprocedure Activity 2- Moves 4 extremities sustained head lift Activity 2- Moves 4 extremities sustained head lift Circulation 2- SBP +/= 20 points of pre-anesthetic level Circulation 2- SBP +/= 20 points of pre-anesthetic level Consciousness 2- Awake and alert oriented x 3 Consciousness 2- Awake and alert oriented x 3 O2 Saturation 2- Able to maintain O2 satruation of 92% on room air O2 Saturation 2- Able to maintain O2 satruation of 92% on room air Respiratory 2- Able to deep breathe and cough well Respiratory 2- Able to deep breathe and cough well Total Score 10 Total Score 10 Contrast Agent: Isovue Diagnostic Contrast: 42 ml Total Contrast: 42 ml Fluoro Dose: 26 mGy Procedure Log Time Note Enter By 02:32 PM Pt arrived [facility] at 14:32 tsites 02:32 PM Carlyn Rosenthal RT (R) Position: Monitor Time in: 14:32 tsites 02:32 PM Mabel Rey RT (R) Position: Scrub Time in: 14:32 tsites 02:33 PM Eric Acevedo RN Position: Transport Coordinator Time in: 14:32 tsites 02:33 PM Patient charges- Angio tray pack, Navilyst 3mm J, Pulse Oximetry and ACIST tubing and transducer tsites 02:33 PM Physician arrived 14:33 tsites 02:33 PM Meet and greet completed tsites 02:33 PM Sign in performed according to hospital policy. Informed consent was obtained. tsites 02:33 PM CathStat 02:35 PM Procedure start 14:35 tsites 02:35 PM Case Delayed No tsites 02:35 PM Time: 14:35 Oxygen on at 2 L/min per nasal cannula by Eric Acevedo RN tsites 02:35 PM Hair removed from procedure site in holding area using clippers. Right wrist and Right groin prepped with Chloraprep by Carlito Floyd, then patient was draped. Skin intact. tsites 02:38 PM Vitals capture started with the following parameters, Patient=Adult, Interval=5 min, Initial Kppawswp=557 mmHg, Deflation Rate=3 mmHg, Cuff placed on Right Arm 02:39 PM Vitals capture stopped. 02:39 PM Time: 14:39 Patient comfortable and pain free: Yes tsites 02:39 PM Time: 14:39LOC: 5 = Fully awake and oriented or at pre-proc level tsites 02:43 PM Vitals capture started with the following parameters, Patient=Adult, Interval=5 min, Initial Qdlswltm=339 mmHg, Deflation Rate=3 mmHg, Cuff placed on Right Arm 02:43 PM Reference ECG taken 02:43 PM Recorded ECG: HR=77 Condition=Condition 1 02:45 PM Time: 14:44 Versed 2 mg Intravenous Given by Eric Acevedo RN tsites 02:45 PM Time: 14:45 Fentanyl 50 mcg Intravenous Given by Eric Acevedo RN tsites 02:45 PM HR=78 bpm, QLQH=209/93 mmhg, HlK0=357 %, Resp=18 B/min 02:49 PM HR=80 bpm, CCMU=293/106 mmhg, SpO2=94.0 %, Resp=21 B/min 02:50 PM Pressure channel 1 zeroed. 02:54 PM HR=80 bpm, XOYZ=938/110 mmhg, SpO2=95.0 %, Resp=18 B/min 02:56 PM Time: 14:39LOC: 4 = Oriented but drowsy tsites 02:57 PM Time: 14:39 Patient comfortable and pain free: Yes tsites 02:57 PM Time out was performed according to hospital policy. Conscious sedation and anesthesia was achieved (see medication log with in this report above) tsites 02:57 PM Time: 14:57 10 ml Lidocaine 2% to right radial Subcutaneous Given by Leroy Reddy MD, [facility] tsites 02:58 PM Access obtained by percutaneous puncture. 5/6Fr 10cm Terumo Glidesheath sheath placed in right Radial artery. [id number] tsites 02:59 PM Time: 14:58 Patient given 1,000 units Heparin, 200 mcg Nitroglycerin, and 2.5 mg Verapamil Intraarterial by Leroy Reddy MD, [facility]. This is given to reduce risk of vessel spasm and thrombosis. tsites 02:59 PM 5Fr TIG catheter inserted over the wire [facility] tsites 02:59 PM 0.035 260cm Navilyst 3mmJ wire [id number] tsites 02:59 PM HR=80 bpm, VULC=333/104 mmhg, SpO2=97.0 %, Resp=18 B/min 03:02 PM RCA angiography performed in multiple views. tsites 03:02 PM Recorded Pressure: Ao, HR=85, Condition=Condition 1 (Aorta) Ao 134/93/112 03:03 PM Catheter removed tsites 03:03 PM 5Fr FL 4 catheter inserted over the wire [facility] tsites 03:04 PM HR=82 bpm, FECS=779/102 mmhg, SpO2=88.0 %, Resp=20 B/min 03:04 PM Time: 15:04 Oxygen on at 4 L/min per nasal cannula by Eric Acevedo RN tsites 03:05 PM LCA angiography performed in multiple views. tsites 03:05 PM Recorded Pressure: Ao, HR=82, Condition=Condition 1 (Aorta) Ao 146/24/79 03:07 PM Lesion found in Proximal RCA. Pre Stenosis: 60 Pre SINA Flow: tsites 03:07 PM Lesion found in Mid LAD. Pre Stenosis: 50 Pre SINA Flow: tsites 03:08 PM Pressure channel 1 zero failed. 03:08 PM Pressure channel 1 zero failed. 03:09 PM Pressure channel 1 zero failed. 03:09 PM Pressure channel 1 zeroed. 03:09 PM Recorded Pressure: LV, HR=82, Condition=Condition 1 (Left Ventricle) LV 127/24/26 03:09 PM HR=83 bpm, MULC=082/99 mmhg, SpO2=94.0 %, Resp=23 B/min 03:09 PM Recorded Pressure: LV, HR=83, Condition=Condition 1 (Left Ventricle) LV 173/26/37 03:10 PM Recorded Pressure: LV, Ao, HR=85, Condition=Condition 1 (Left Ventricle) LV 129/21/28, (Aorta) Ao 125/70/95 03:10 PM 5Fr Pigtail catheter inserted over the wire [facility] tsites 03:10 PM Catheter crossed the aortic valve and was selectively placed in the left ventricle. Pressures recorded on pullback for left heart catheterization. tsites 03:10 PM Lesion found in Mid Circumflex. Pre Stenosis: 100 Pre SINA Flow: tsites 03:11 PM Coronary Dominance: right tsites 03:11 PM Procedure completed at 15:11 04/28/2019 tsites 03:11 PM Did you address SINA flow and Dominance? YesCoronary Dominance: right tsites 03:12 PM Sign out completed: Radiation Dose 240 mGy, 26 Gy/cm2 Fluoro Time: 2.4 Isovue 370 - 200ml contrast 42 ml given by Leroy Reddy MD, [facility]. Complications: None. 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 Sedation minutes 27. Cardiac Rehab Consult needed: No. Confirmed administered medications: Yes tsites 03:12 PM Isovue 370 - 200ml,1 Bottle(s) used. tsites 03:12 PM Arterial sheath pulled, Vasc Band closure device used and was Successful S/N. tsites 03:12 PM 9 ml air in Vasc Band. tsites 03:13 PM Estimated Blood Loss: minimal tsites 03:13 PM Post ECG NSR tsites 03:13 PM Post Blood Pressure 166/99 tsites 03:13 PM 15:13 Post Pulses Rt Radial 1+ tsites 03:13 PM Information taught Cardiac Cath and Vasc Band tsites 03:13 PM Education needs Procedure, Plan of Care, and Responsibilities of Patient in Care tsites 03:13 PM Learning barriers :None tsites 03:13 PM Education Methods Verbal tsites 03:13 PM Education evaluation Able to repeat information tsites 03:13 PM Site status No bleeding/ No Hematoma - Rt Wrist as reported by Mabel Rey RT (R) at 15:13 tsites 03:13 PM Delay to floor No tsites 03:13 PM Patient out of room: 15:13 tsites 03:13 PM Family placed in consult room. tsites 03:14 PM HR=81 bpm, AEPC=840/102 mmhg, Resp=20 B/min 03:14 PM Report given to renata MCNEAL Pt taken to 2A Room #63. 15:13 tsites Complications Complication None Hemodynamics Pressures Site Systolic/A Wave Diastolic/V Wave Mean AO 134 93 112 AO 146 24 79 LV 127 24 26 LV 173 26 37 LV 129 21 28 AO 125 70 95 Post Procedure Information Blood Pressure: 166/99 mmHg Rhythm: NSR Post procedural instructions were given Closure Device Time Device Success/Fail 04/28/2019 3:15:00 PM Mechanical Compression Successful Site Checks Time Location Status Staff Sheath In? Note 03:13 PM Rt Wrist No bleeding/ No Hematoma Mabel Rey RT (R) Pulses Time Site Pre-Procedure Post-Procedure Note Bilateral DP & PT 2+ 3:13:00 PM Rt Radial 1+ Updated by Carlyn Ariadna, RT (R) on 04/28/2019 3:21:54 PM Carlyn Sites RT electronically signed on 05/07/2019 8:57:05 AM with status of Final
== END 2019-04-29 16:15 | disposition home health service (06) | DRG 190 ==
LOC: 2ANU 04:37 → EMEROOARM 04:37 → 2ANU 08:15 → SUATTDRO 11:36 → 2ANU 04-24 08:40
PROVIDERS: ADMIT Internal Medicine; ATTEND Internal Medicine
PROC: ENDOEBX (2019-04-27 11:15)
PROC: ENDOCBX (2019-04-27 11:15)

== ENCOUNTER 2019-12-28 12:20 | Observation (INO) ==
[2019-12-28 13:27] LABS: Basophils # 0.1 K/mcL (0.0-0.2); Basophils % 0.6 %; Eosinophils # 0.2 K/mcL (0.0-0.6); Eosinophils % 2.5 %; Hematocrit 31.4 % (37.5-50.1); Hemoglobin 10.7 g/dL (12.9-16.9); Immature Granulocytes % 0.6 % (0-4); Lymphocytes # 1.1 K/mcL (0.6-4.6); Lymphocytes % 11.4 %; Mean Corpuscular HGB Conc 34.1 g/dL (31.6-35.5); Mean Corpuscular Hemoglobin 30.8 pg (28.0-33.3); Mean Corpuscular Volume 90.5 fL (83.0-100.0); Mean Platelet Volume 11.5 fL (9.4-12.4); Monocytes % 10.2 %; Neutrophils # 7.2 K/mcL (1.6-8.9); Platelet Count 192 K/mcL (140-400); Red Blood Count 3.47 M/mcL (4.19-5.50); Red Cell Distribution Width 12.7 % (11.5-14.5); Segmented Neutrophils % 74.7 %; White Blood Count 9.6 K/mcL (4.3-11.1)
[2019-12-28 13:50] LABS: Calcium 8.3 mg/dL (8.6-10.3); Potassium 4.2 mEq/L (3.5-5.1)
[2019-12-28] MEDS ORDERED: Clindamycin 600 MG/50 ML 600 MG/50 ML IV.SOLN IVPB ONE (13:59)
[2019-12-28] MEDS ORDERED: Insulin Regular, Human 100 UNIT/ML SQ ONE (14:04)
[2019-12-28] MEDS ORDERED: Piperacillin/Tazobactam 3.375 GM in 0.9 % Sodium Chloride Mini Bag 100 ML IVPB ONE (14:24)
[2019-12-28] MEDS ORDERED: Vancomycin 2,000 MG/520 ML IV.SOLN IVPB ONE (14:51)
[2019-12-28] MEDS ORDERED: Ondansetron 4 MG/2 ML VIAL IVP PRN (15:04)
[2019-12-28] MEDS ORDERED: Naloxone 0.4 MG/ML INJ IVP PRN (15:04)
[2019-12-28] MEDS ORDERED: D5% in Water 1,000 ML IVC PRN (15:06)
[2019-12-28] MEDS ORDERED: Dextrose Gel 15 GM/37.5 ML TUBE PO PRN ×2 (15:06)
[2019-12-28] MEDS ORDERED: *HR* Dextrose 50 % in Water (Syg) 50 ML SYRINGE IVP PRN (15:06)
[2019-12-28] MEDS ORDERED: *HR* HYDROcodone/Acet 5/325 mg TABLET PO PRN (15:11)
[2019-12-28 16:52] LABS: Basophils % 0.5 %; Eosinophils # 0.3 K/mcL (0.0-0.6); Hematocrit 31.1 % (37.5-50.1); Hemoglobin 10.5 g/dL (12.9-16.9); Lymphocytes % 11.4 %; Mean Corpuscular HGB Conc 33.8 g/dL (31.6-35.5); Mean Corpuscular Hemoglobin 30.5 pg (28.0-33.3); Mean Corpuscular Volume 90.4 fL (83.0-100.0); Mean Platelet Volume 11.7 fL (9.4-12.4); Monocytes # 0.8 K/mcL (0.0-1.3); Monocytes % 9.6 %; Neutrophils # 6.4 K/mcL (1.6-8.9); Platelet Count 200 K/mcL (140-400); Red Blood Count 3.44 M/mcL (4.19-5.50); Red Cell Distribution Width 12.6 % (11.5-14.5); Segmented Neutrophils % 74.5 %; White Blood Count 8.6 K/mcL (4.3-11.1)
[2019-12-28] MEDS: *HR* Heparin 5,000 UNIT/ML VIAL SQ SCH (18:35)
[2019-12-28] MEDS ORDERED: Insulin LISPRO 300 UNITS/3 ML VIAL SQ SCH (21:00)
[2019-12-28] MEDS: Insulin DETEMIR 100 UNIT/ML X5UNITS SQ SCH (21:33)
[2019-12-29] MEDS: Piperacillin/Tazobactam 3.375 GM in 0.9 % Sodium Chloride Mini Bag 100 ML IVPB SCH ×4 (00:33→22:47)
[2019-12-29 01:20] LABS: Basophils % 0.5 %; Eosinophils # 0.4 K/mcL (0.0-0.6); Eosinophils % 4.8 %; Hematocrit 29.6 % (37.5-50.1); Hemoglobin 10.1 g/dL (12.9-16.9); Immature Granulocytes % 0.6 % (0-4); Lymphocytes # 1.3 K/mcL (0.6-4.6); Lymphocytes % 16.4 %; Mean Corpuscular HGB Conc 34.1 g/dL (31.6-35.5); Mean Corpuscular Hemoglobin 30.4 pg (28.0-33.3); Mean Corpuscular Volume 89.2 fL (83.0-100.0); Monocytes # 0.7 K/mcL (0.0-1.3); Monocytes % 9.4 %; Neutrophils # 5.3 K/mcL (1.6-8.9); Platelet Count 192 K/mcL (140-400); Red Blood Count 3.32 M/mcL (4.19-5.50); Red Cell Distribution Width 12.7 % (11.5-14.5); Segmented Neutrophils % 68.3 %; White Blood Count 7.7 K/mcL (4.3-11.1)
[2019-12-29 01:31] LABS: Calcium 8.1 mg/dL (8.6-10.3)
[2019-12-29] MEDS: *HR* Heparin 5,000 UNIT/ML VIAL SQ SCH ×2 (05:36→16:32)
[2019-12-29] MEDS: Metoprolol XL (24 HR) Succ 50 MG TAB.ER.24H PO SCH (07:46)
[2019-12-29] MEDS: Aspirin Enteric Coated 81 MG Tablet PO SCH (07:46)
[2019-12-29] MEDS: Cyanocobalamin (B-12) 1,000 MCG TABLET PO SCH (07:46)
[2019-12-29] MEDS: amLODIPine 5 MG TABLET PO SCH (07:46)
[2019-12-29] MEDS ORDERED: Famotidine 20 MG TABLET PO SCH (09:00)
[2019-12-29] MEDS: Insulin LISPRO 300 UNITS/3 ML VIAL SQ SCH ×2 (12:09→16:31)
[2019-12-29] MEDS ORDERED: Vancomycin 1,750 MG/517.5 ML IV.SOLN IVPB SCH (16:00)
[2019-12-29] MEDS: Insulin DETEMIR 100 UNIT/ML X5UNITS SQ SCH (20:14)
[2019-12-30 05:54] LABS: Hematocrit 31.1 % (37.5-50.1); Hemoglobin 10.3 g/dL (12.9-16.9); Mean Corpuscular HGB Conc 33.1 g/dL (31.6-35.5); Mean Corpuscular Volume 90.7 fL (83.0-100.0); Mean Platelet Volume 11.8 fL (9.4-12.4); Platelet Count 218 K/mcL (140-400); Red Blood Count 3.43 M/mcL (4.19-5.50); Red Cell Distribution Width 12.5 % (11.5-14.5); White Blood Count 7.1 K/mcL (4.3-11.1)
[2019-12-30] MEDS: *HR* Heparin 5,000 UNIT/ML VIAL SQ SCH ×2 (06:14→17:51)
[2019-12-30] MEDS: Piperacillin/Tazobactam 3.375 GM in 0.9 % Sodium Chloride Mini Bag 100 ML IVPB SCH ×2 (06:15→17:48)
[2019-12-30 06:32] LABS: Calcium 8.5 mg/dL (8.6-10.3); Potassium 4.1 mEq/L (3.5-5.1)
[2019-12-30] MEDS: Aspirin Enteric Coated 81 MG Tablet PO SCH (09:39)
[2019-12-30] MEDS: Cyanocobalamin (B-12) 1,000 MCG TABLET PO SCH (09:39)
[2019-12-30] MEDS: Metoprolol XL (24 HR) Succ 50 MG TAB.ER.24H PO SCH (09:39)
[2019-12-30] MEDS: amLODIPine 5 MG TABLET PO SCH (09:39)
[2019-12-30] MEDS: Famotidine 20 MG TABLET PO SCH (09:39)
[2019-12-30] MEDS: Insulin LISPRO 300 UNITS/3 ML VIAL SQ SCH ×3 (09:41→17:50)
[2019-12-30] MEDS ORDERED: Aminoglycoside Consult 1 EACH MC ONE (18:52)
[2019-12-30] MEDS: Insulin DETEMIR 100 UNIT/ML X5UNITS SQ SCH (20:35)
[2019-12-31] MEDS: Piperacillin/Tazobactam 3.375 GM in 0.9 % Sodium Chloride Mini Bag 100 ML IVPB SCH ×4 (00:27→23:48)
[2019-12-31 05:40] LABS: Basophils % 0.5 %; Eosinophils # 0.2 K/mcL (0.0-0.6); Eosinophils % 3.6 %; Hematocrit 30.9 % (37.5-50.1); Hemoglobin 10.1 g/dL (12.9-16.9); Immature Granulocytes % 0.8 % (0-4); Lymphocytes # 1.3 K/mcL (0.6-4.6); Lymphocytes % 19.6 %; Mean Corpuscular HGB Conc 32.7 g/dL (31.6-35.5); Mean Corpuscular Hemoglobin 29.9 pg (28.0-33.3); Mean Corpuscular Volume 91.4 fL (83.0-100.0); Monocytes # 0.6 K/mcL (0.0-1.3); Monocytes % 9.7 %; Neutrophils # 4.4 K/mcL (1.6-8.9); Platelet Count 215 K/mcL (140-400); Red Blood Count 3.38 M/mcL (4.19-5.50); Red Cell Distribution Width 12.4 % (11.5-14.5); Segmented Neutrophils % 65.8 %; White Blood Count 6.6 K/mcL (4.3-11.1)
[2019-12-31] MEDS: *HR* Heparin 5,000 UNIT/ML VIAL SQ SCH ×2 (06:04→17:30)
[2019-12-31 06:06] LABS: Calcium 8.2 mg/dL (8.6-10.3); Potassium 4.1 mEq/L (3.5-5.1)
[2019-12-31] MEDS: Cyanocobalamin (B-12) 1,000 MCG TABLET PO SCH (09:22)
[2019-12-31] MEDS: Aspirin Enteric Coated 81 MG Tablet PO SCH (09:22)
[2019-12-31] MEDS: amLODIPine 5 MG TABLET PO SCH (09:22)
[2019-12-31] MEDS: Famotidine 20 MG TABLET PO SCH (09:22)
[2019-12-31] MEDS: Insulin LISPRO 300 UNITS/3 ML VIAL SQ SCH ×3 (09:22→17:32)
[2019-12-31] MEDS: Metoprolol XL (24 HR) Succ 50 MG TAB.ER.24H PO SCH (09:22)
[2019-12-31 14:48] LABS: Total Volume 24 Hour,Urine 3.25 Liters (0.80-1.80)
[2019-12-31 14:49] LABS: Total Volume 24 Hour,Urine 3.25 Liters (0.80-1.80)
[2019-12-31 15:49] LABS: Total Volume 24 Hour,Urine 3.25 Liters (0.80-1.80)
[2019-12-31 16:16] LABS: Protein/Creatinine Ratio,Urine 4.81 mg/mg (0.00-0.20)
[2019-12-31] MEDS: Insulin DETEMIR 100 UNIT/ML X5UNITS SQ SCH (21:32)
[2020-01-01] MEDS: *HR* Heparin 5,000 UNIT/ML VIAL SQ SCH ×2 (05:37→16:35)
[2020-01-01 07:43] LABS: Basophils # 0.1 K/mcL (0.0-0.2); Basophils % 0.8 %; Eosinophils # 0.2 K/mcL (0.0-0.6); Eosinophils % 2.8 %; Hematocrit 31.8 % (37.5-50.1); Hemoglobin 10.4 g/dL (12.9-16.9); Immature Granulocytes % 1.2 % (0-4); Lymphocytes # 1.1 K/mcL (0.6-4.6); Lymphocytes % 17.4 %; Mean Corpuscular HGB Conc 32.7 g/dL (31.6-35.5); Mean Corpuscular Hemoglobin 29.6 pg (28.0-33.3); Mean Corpuscular Volume 90.6 fL (83.0-100.0); Mean Platelet Volume 11.5 fL (9.4-12.4); Monocytes # 0.6 K/mcL (0.0-1.3); Neutrophils # 4.4 K/mcL (1.6-8.9); Platelet Count 229 K/mcL (140-400); Red Blood Count 3.51 M/mcL (4.19-5.50); Red Cell Distribution Width 12.4 % (11.5-14.5); Segmented Neutrophils % 68.8 %; White Blood Count 6.5 K/mcL (4.3-11.1)
[2020-01-01 08:02] LABS: Calcium 8.2 mg/dL (8.6-10.3); Potassium 4.2 mEq/L (3.5-5.1)
[2020-01-01] MEDS: amLODIPine 5 MG TABLET PO SCH (08:14)
[2020-01-01] MEDS: Famotidine 20 MG TABLET PO SCH (08:15)
[2020-01-01] MEDS: Metoprolol XL (24 HR) Succ 50 MG TAB.ER.24H PO SCH (08:15)
[2020-01-01] MEDS: Cyanocobalamin (B-12) 1,000 MCG TABLET PO SCH (08:15)
[2020-01-01] MEDS: Aspirin Enteric Coated 81 MG Tablet PO SCH (08:15)
[2020-01-01] MEDS: Piperacillin/Tazobactam 3.375 GM in 0.9 % Sodium Chloride Mini Bag 100 ML IVPB SCH (08:15)
[2020-01-01] MEDS: Insulin LISPRO 300 UNITS/3 ML VIAL SQ SCH ×3 (08:16→16:36)
[2020-01-01] MEDS: Albumin 25% 25gram/100mL 25 GM/100 ML IV.SOLN IVPB SCH ×2 (12:14→15:42)
[2020-01-01 14:58] VITALS: BP 170/81
[2020-01-01] MEDS ORDERED: amLODIPine 5 MG TABLET PO ONE (16:26)
[2020-01-01] MEDS ORDERED: Insulin LISPRO 300 UNITS/3 ML VIAL SQ SCH (16:30)
[2020-01-02 20:13] LABS: Alpha 2 Globulin (PEP) 1.27 g/dL (0.48-1.05); Beta Globulin (PEP) 0.95 g/dL (0.48-1.10)
[2020-01-03 11:33] LABS: IFE Reflexed NOT DONE
== END 2020-01-01 18:53 | disposition left against medical advice (07) ==
LOC: EMEROOARM 12:20 → 3BNU 12:20
PROVIDERS: ADMIT Internal Medicine; ATTEND Internal Medicine

== ENCOUNTER 2021-01-02 15:49 | Inpatient (IN) ==
[2021-01-02 17:37] LABS: Basophils % 0.7 %; Eosinophils # 0.2 K/mcL (0.0-0.6); Eosinophils % 3.9 %; Hematocrit 33.1 % (37.5-50.1); Hemoglobin 10.8 g/dL (12.9-16.9); Immature Granulocytes % 1.3 % (0-4); Lymphocytes % 16.5 %; Mean Corpuscular HGB Conc 32.6 g/dL (31.6-35.5); Mean Corpuscular Hemoglobin 29.9 pg (28.0-33.3); Mean Corpuscular Volume 91.7 fL (83.0-100.0); Mean Platelet Volume 11.9 fL (9.4-12.4); Monocytes # 0.6 K/mcL (0.0-1.3); Monocytes % 10.5 %; Neutrophils # 4.1 K/mcL (1.6-8.9); Platelet Count 196 K/mcL (140-400); Red Blood Count 3.61 M/mcL (4.19-5.50); Red Cell Distribution Width 13.2 % (11.5-14.5); Segmented Neutrophils % 67.1 %; White Blood Count 6.1 K/mcL (4.3-11.1)
[2021-01-02 17:47] LABS: INR 0.9; Prothrombin Time 10.8 Seconds (9.4-12.1)
[2021-01-02 17:50] LABS: Activated Partial Thrombo Time 26.7 Seconds (26.0-36.0)
[2021-01-02 18:05] LABS: BUN/Creatinine Ratio 12 (6-26); Blood Urea Nitrogen 39 mg/dL (6-20); Calcium 8.4 mg/dL (8.6-10.3); Carbon Dioxide 21 mEq/L (23-29); Chloride 105 mEq/L (98-107); Glucose 345 mg/dL (70-105); Osmolality,Calculated 305 (280-300); Potassium 4.4 mEq/L (3.5-5.1); Sodium 136 mEq/L (136-145); Troponin I < 0.03 ng/mL (< 0.04); eGFR For African Americans 24 (> 60); eGFR For Non-African Americans 20 (> 60)
[2021-01-02] MEDS ORDERED: Furosemide 40 MG/4 ML VIAL IVP ONE (18:36)
[2021-01-02] MEDS ORDERED: Naloxone 0.4 MG/ML INJ IVP PRN (22:25)
[2021-01-02] MEDS ORDERED: Melatonin 3 MG TABLET PO PRN (22:25)
[2021-01-02] MEDS ORDERED: Acetaminophen 325 MG TABLET PO PRN (22:25)
[2021-01-02] MEDS ORDERED: D5% in Water 1,000 ML IVC PRN (22:34)
[2021-01-02] MEDS ORDERED: *HR* Dextrose 50 % in Water (Vial) 50 ML VIAL IVP PRN (22:34)
[2021-01-02] MEDS ORDERED: Dextrose Gel 15 GM/37.5 ML TUBE PO PRN ×2 (22:34)
[2021-01-02] MEDS ORDERED: Insulin DETEMIR 100 UNIT/ML X5UNITS SUBQ SCH (22:45)
[2021-01-03 06:59] LABS: Basophils # 0.1 K/mcL (0.0-0.2); Basophils % 0.8 %; Eosinophils # 0.3 K/mcL (0.0-0.6); Eosinophils % 4.1 %; Hematocrit 32.4 % (37.5-50.1); Hemoglobin 10.6 g/dL (12.9-16.9); Immature Granulocytes % 1.1 % (0-4); Lymphocytes # 1.2 K/mcL (0.6-4.6); Lymphocytes % 18.1 %; Mean Corpuscular HGB Conc 32.7 g/dL (31.6-35.5); Mean Corpuscular Hemoglobin 30.1 pg (28.0-33.3); Mean Platelet Volume 11.9 fL (9.4-12.4); Monocytes # 0.6 K/mcL (0.0-1.3); Monocytes % 9.5 %; Neutrophils # 4.4 K/mcL (1.6-8.9); Platelet Count 170 K/mcL (140-400); Red Blood Count 3.52 M/mcL (4.19-5.50); Red Cell Distribution Width 13.2 % (11.5-14.5); Segmented Neutrophils % 66.4 %; White Blood Count 6.6 K/mcL (4.3-11.1)
[2021-01-03 07:11] LABS: Calcium 8.6 mg/dL (8.6-10.3); Potassium 4.2 mEq/L (3.5-5.1)
[2021-01-03] MEDS: Metoprolol XL (24 HR) Succ 50 MG TAB.ER.24H PO SCH (08:44)
[2021-01-03] MEDS: Famotidine 20 MG TABLET PO SCH (08:44)
[2021-01-03] MEDS: amLODIPine 5 MG TABLET PO SCH (08:44)
[2021-01-03] MEDS: Cyanocobalamin (B-12) 1,000 MCG TABLET PO SCH (08:45)
[2021-01-03] MEDS: Insulin LISPRO 300 UNITS/3 ML VIAL SUBQ SCH ×3 (08:45→16:45)
[2021-01-03] MEDS: Aspirin Enteric Coated 81 MG Tablet PO SCH (08:45)
[2021-01-03] MEDS ORDERED: Albumin 25% 25gram/100mL 25 GM/100 ML IV.SOLN IVPB ONE (08:48)
[2021-01-03] MEDS ORDERED: Furosemide 40 MG/4 ML VIAL IVP ONE (09:00)
[2021-01-03] MEDS: Albumin 25% 25gram/100mL 25 GM/100 ML IV.SOLN IVPB SCH (16:41)
[2021-01-03] MEDS ORDERED: Furosemide 40 MG TABLET PO SCH (18:00)
[2021-01-03] MEDS: Furosemide 40 MG/4 ML VIAL IVP SCH (18:31)
[2021-01-03] MEDS: *HR* Heparin 5,000 UNIT/ML VIAL SQ SCH (18:32)
[2021-01-03] MEDS: cilostazoL 100 MG TABLET PO SCH (20:40)
[2021-01-03] MEDS: Insulin NPH/REG 70/30 100 UNIT/ML (x5UNIT) SUBQ SCH (20:40)
[2021-01-04 03:09] LABS: Hematocrit 31.6 % (37.5-50.1); Hemoglobin 10.6 g/dL (12.9-16.9)
[2021-01-04 03:11] LABS: Magnesium 2.3 mg/dL (1.6-2.6); Phosphorous 4.2 mg/dL (2.7-4.5); Potassium 3.7 mEq/L (3.5-5.1)
[2021-01-04 03:17] LABS: Transferrin 154 mg/dL (203-362)
[2021-01-04 03:30] LABS: Ferritin 146 ng/mL (20-250)
[2021-01-04 03:31] LABS: % Iron Saturation 34 % (20-55); Iron 73 mcg/dL (65-175)
[2021-01-04] MEDS: Albumin 25% 25gram/100mL 25 GM/100 ML IV.SOLN IVPB SCH ×2 (05:20→16:51)
[2021-01-04] MEDS: *HR* Heparin 5,000 UNIT/ML VIAL SQ SCH ×2 (05:20→18:15)
[2021-01-04] MEDS: cilostazoL 100 MG TABLET PO SCH ×2 (08:17→21:00)
[2021-01-04] MEDS: amLODIPine 5 MG TABLET PO SCH (08:18)
[2021-01-04] MEDS: allopurinoL 100 MG TABLET PO SCH (08:18)
[2021-01-04] MEDS: Famotidine 20 MG TABLET PO SCH (08:18)
[2021-01-04] MEDS: Metoprolol XL (24 HR) Succ 50 MG TAB.ER.24H PO SCH (08:18)
[2021-01-04] MEDS: Cyanocobalamin (B-12) 1,000 MCG TABLET PO SCH (08:19)
[2021-01-04] MEDS: Aspirin Enteric Coated 81 MG Tablet PO SCH (08:19)
[2021-01-04] MEDS: Furosemide 40 MG/4 ML VIAL IVP SCH ×2 (08:20→21:00)
[2021-01-04] MEDS: Insulin NPH/REG 70/30 100 UNIT/ML (x5UNIT) SUBQ SCH ×2 (08:29→21:01)
[2021-01-04] MEDS: Insulin LISPRO 300 UNITS/3 ML VIAL SUBQ SCH ×3 (08:29→16:52)
[2021-01-05] MEDS: *HR* Heparin 5,000 UNIT/ML VIAL SQ SCH ×2 (05:05→17:17)
[2021-01-05 07:21] LABS: Calcium 9.1 mg/dL (8.6-10.3); Magnesium 2.1 mg/dL (1.6-2.6); Phosphorous 4.1 mg/dL (2.7-4.5); Potassium 4.1 mEq/L (3.5-5.1)
[2021-01-05] MEDS: Aspirin Enteric Coated 81 MG Tablet PO SCH (08:27)
[2021-01-05] MEDS: Famotidine 20 MG TABLET PO SCH (08:27)
[2021-01-05] MEDS: amLODIPine 5 MG TABLET PO SCH (08:28)
[2021-01-05] MEDS: allopurinoL 100 MG TABLET PO SCH (08:28)
[2021-01-05] MEDS: Spironolactone 12.5 MG TABLET PO SCH (08:28)
[2021-01-05] MEDS: Metoprolol XL (24 HR) Succ 50 MG TAB.ER.24H PO SCH (08:29)
[2021-01-05] MEDS: Cyanocobalamin (B-12) 1,000 MCG TABLET PO SCH (08:29)
[2021-01-05] MEDS: cilostazoL 100 MG TABLET PO SCH ×2 (08:29→19:51)
[2021-01-05] MEDS: Insulin LISPRO 300 UNITS/3 ML VIAL SUBQ SCH ×3 (08:29→17:18)
[2021-01-05] MEDS: Albumin 25% 25gram/100mL 25 GM/100 ML IV.SOLN IVPB SCH ×2 (08:29→17:18)
[2021-01-05] MEDS: Insulin NPH/REG 70/30 100 UNIT/ML (x5UNIT) SUBQ SCH ×2 (08:31→19:51)
[2021-01-05] MEDS: Furosemide 40 MG/4 ML VIAL IVP SCH (10:54)
[2021-01-06 01:45] LABS: Calcium 9.3 mg/dL (8.6-10.3); Magnesium 2.1 mg/dL (1.6-2.6); Potassium 3.7 mEq/L (3.5-5.1)
[2021-01-06] MEDS: *HR* Heparin 5,000 UNIT/ML VIAL SQ SCH (04:53)
[2021-01-06 06:29] VITALS: BP 130/63
[2021-01-06] MEDS: Insulin LISPRO 300 UNITS/3 ML VIAL SUBQ SCH (07:57)
[2021-01-06] MEDS ORDERED: Furosemide 40 MG TABLET PO SCH (08:00)
[2021-01-06] MEDS: allopurinoL 100 MG TABLET PO SCH (08:32)
[2021-01-06] MEDS: Cyanocobalamin (B-12) 1,000 MCG TABLET PO SCH (08:32)
[2021-01-06] MEDS: amLODIPine 5 MG TABLET PO SCH (08:32)
[2021-01-06] MEDS: Aspirin Enteric Coated 81 MG Tablet PO SCH (08:32)
[2021-01-06] MEDS: cilostazoL 100 MG TABLET PO SCH (08:32)
[2021-01-06] MEDS: Metoprolol XL (24 HR) Succ 50 MG TAB.ER.24H PO SCH (08:32)
[2021-01-06] MEDS: Famotidine 20 MG TABLET PO SCH (08:32)
[2021-01-06] MEDS: Spironolactone 12.5 MG TABLET PO SCH (08:32)
[2021-01-06] MEDS: Insulin NPH/REG 70/30 100 UNIT/ML (x5UNIT) SUBQ SCH (08:36)
[2021-01-07] MEDS ORDERED: Cholecalciferol (D-3) 1,000 UNIT (25MCG) TABLET PO SCH (22:37)
== END 2021-01-06 12:16 | disposition home or self-care (01) | DRG 194 ==
LOC: EMEROOARM 15:49 → 3BNU 15:49 → SUATTDRO 21:20 → 3BNU 22:24 → SUATTDRO 01-04 11:59
PROVIDERS: ADMIT Family Medicine; ATTEND Registered Nurse

== ENCOUNTER 2021-02-19 16:43 | Inpatient (IN) ==
[2021-02-19] MEDS ORDERED: 0.9 % Sodium Chloride 1,000 ML IVC ONE (17:42)
[2021-02-19 18:07] LABS: Basophils % 0.4 %; Eosinophils # 0.1 K/mcL (0.0-0.6); Eosinophils % 0.5 %; Hematocrit 32.7 % (37.5-50.1); Hemoglobin 10.7 g/dL (12.9-16.9); Immature Granulocytes % 0.8 % (0-4); Lymphocytes # 0.7 K/mcL (0.6-4.6); Lymphocytes % 7.1 %; Mean Corpuscular HGB Conc 32.7 g/dL (31.6-35.5); Mean Corpuscular Hemoglobin 29.9 pg (28.0-33.3); Mean Corpuscular Volume 91.3 fL (83.0-100.0); Mean Platelet Volume 12.3 fL (9.4-12.4); Monocytes # 1.3 K/mcL (0.0-1.3); Monocytes % 12.5 %; Neutrophils # 8.2 K/mcL (1.6-8.9); Platelet Count 185 K/mcL (140-400); Red Blood Count 3.58 M/mcL (4.19-5.50); Red Cell Distribution Width 12.9 % (11.5-14.5); Segmented Neutrophils % 78.7 %; White Blood Count 10.5 K/mcL (4.3-11.1)
[2021-02-19] MEDS ORDERED: Acetaminophen 325 MG TABLET PO ONE (18:23)
[2021-02-19 18:32] LABS: Albumin 3.7 g/dL (3.5-5.7); Albumin/Globulin Ratio 0.9 (1.1-2.2); Bilirubin,Direct 0.1 mg/dL (0.0-0.2); Bilirubin,Indirect 0.4 mg/dL (0.0-1.0); Bilirubin,Total 0.5 mg/dL (0.3-1.0); Calcium 8.8 mg/dL (8.6-10.3); Potassium 4.6 mEq/L (3.5-5.1); Total Protein 7.7 g/dL (6.4-8.9)
[2021-02-19 19:37] LABS: Amorphous Sediment,Urine Few per hpf (None-Few); Bacteria,Urine Few per hpf (None-Few); Bilirubin,Urine Negative (Negative); Blood,Urine Moderate (Negative); Clarity,Urine Clear (Clear); Color,Urine Colorless (Yellow); Glucose,Urine (UA) >=1000 mg/dL (Normal); Hyaline Casts,Urine Few per lpf (None Seen); Ketones,Urine Negative (Negative); Leukocyte Esterase,Urine Negative (Negative); Mucus,Urine Few per lpf (None-Few); Nitrite,Urine Negative (Negative); Protein,Urine 200 mg/dL (Neg-Trace); Specific Gravity,Urine 1.016 (1.010-1.025); Sperm,Urine Present per hpf (None Seen); Squamous Epithelial Cell,Urine Few per hpf (None-Few); Urobilinogen,Urine Normal (Normal)
[2021-02-19] MEDS ORDERED: Azithromycin 250 MG TABLET PO ONE (20:23)
[2021-02-19] MEDS ORDERED: cefTRIAXone 1,000 MG in Water for inj. (sterile) 10 ML IVP ONE (20:24)
[2021-02-19 21:44] LABS: Adenovirus Not Detected (Not Detect); Bordetella Pertussis Not Detected (Not Detect); Chlamydophila pneumoniae Not Detected (Not Detect); Coronavirus 229E Not Detected (Not Detect); Coronavirus HKU1 Not Detected (Not Detect); Coronavirus NL63 Not Detected (Not Detect); Coronavirus OC43 Not Detected (Not Detect); Human Metapneumovirus Not Detected (Not Detect); Human Rhinovirus/Enterovirus Not Detected (Not Detect); Influenza A Subtype 2009 H1 Not Detected (Not Detect); Influenza B Not Detected (Not Detect); Mycoplasma pneumoniae Not Detected (Not Detect); Parainfluenza Virus 1 Not Detected (Not Detect); Parainfluenza Virus 2 Not Detected (Not Detect); Parainfluenza Virus 3 Not Detected (Not Detect); Parainfluenza Virus 4 Not Detected (Not Detect); Respiratory Syncytial Virus Not Detected (Not Detect); SARS-CoV-2 Not Detected (Not Detect)
[2021-02-19] MEDS ORDERED: Naloxone 0.4 MG/ML INJ IVP PRN (23:13)
[2021-02-19] MEDS ORDERED: Ondansetron 4 MG/2 ML VIAL IVP PRN (23:13)
[2021-02-19] MEDS ORDERED: Melatonin 3 MG TABLET PO PRN (23:13)
[2021-02-19] MEDS ORDERED: Insulin Human Regular 10 UNIT in 0.9 % Sodium Chloride 10 ML IV ONE (23:45)
[2021-02-20] MEDS: Acetaminophen 325 MG TABLET PO PRN ×2 (00:28→16:31)
[2021-02-20] MEDS ORDERED: *HR* Dextrose 50 % in Water (Vial) 50 ML VIAL IVP PRN (01:31)
[2021-02-20] MEDS ORDERED: D5% in Water 1,000 ML IVC PRN (01:31)
[2021-02-20] MEDS ORDERED: Dextrose Gel 15 GM/37.5 ML TUBE PO PRN ×2 (01:31)
[2021-02-20] MEDS ORDERED: 0.9 % Sodium Chloride 1,000 ML IVC ONE (01:32)
[2021-02-20] MEDS: Insulin LISPRO 300 UNITS/3 ML VIAL SUBQ SCH ×4 (04:34→16:33)
[2021-02-20 07:55] LABS: Basophils # 0.1 K/mcL (0.0-0.2); Basophils % 0.6 %; Eosinophils # 0.2 K/mcL (0.0-0.6); Eosinophils % 1.8 %; Hematocrit 30.7 % (37.5-50.1); Hemoglobin 9.8 g/dL (12.9-16.9); Immature Granulocytes % 0.7 % (0-4); Lymphocytes # 0.8 K/mcL (0.6-4.6); Lymphocytes % 9.2 %; Mean Corpuscular HGB Conc 31.9 g/dL (31.6-35.5); Mean Corpuscular Hemoglobin 29.3 pg (28.0-33.3); Mean Corpuscular Volume 91.6 fL (83.0-100.0); Mean Platelet Volume 12.3 fL (9.4-12.4); Monocytes % 10.6 %; Neutrophils # 6.9 K/mcL (1.6-8.9); Platelet Count 169 K/mcL (140-400); Red Blood Count 3.35 M/mcL (4.19-5.50); Red Cell Distribution Width 12.8 % (11.5-14.5); Segmented Neutrophils % 77.1 %; White Blood Count 8.9 K/mcL (4.3-11.1)
[2021-02-20] MEDS ORDERED: Clotrimazole 1% CRM 15 GM TUBE TP PRN (07:55)
[2021-02-20 08:15] LABS: Calcium 8.7 mg/dL (8.6-10.3); Phosphorous 3.1 mg/dL (2.7-4.5)
[2021-02-20] MEDS ORDERED: Insulin NPH/REG 70/30 100 UNIT/ML (x5UNIT) SUBQ SCH (08:15)
[2021-02-20] MEDS: *HR* Heparin 5,000 UNIT/ML VIAL SQ SCH ×2 (08:46→16:32)
[2021-02-20] MEDS: Insulin NPH/REG 70/30 100 UNIT/ML (x5UNIT) SUBQ SCH ×2 (08:47→16:44)
[2021-02-20] MEDS: amLODIPine 5 MG TABLET PO SCH (08:48)
[2021-02-20] MEDS: Aspirin Enteric Coated 81 MG Tablet PO SCH (08:49)
[2021-02-20] MEDS: cilostazoL 100 MG TABLET PO SCH ×2 (08:50→19:57)
[2021-02-20] MEDS: Cyanocobalamin (B-12) 1,000 MCG TABLET PO SCH (08:51)
[2021-02-20] MEDS: Furosemide 40 MG TABLET PO SCH (08:51)
[2021-02-20] MEDS: allopurinoL 100 MG TABLET PO SCH (08:51)
[2021-02-20] MEDS ORDERED: Metoprolol XL (24 HR) Succ 50 MG TAB.ER.24H PO SCH (09:00)
[2021-02-20] MEDS ORDERED: Benzonatate 100 MG CAPSULE PO PRN (09:32)
[2021-02-20] MEDS ORDERED: Insulin Human Regular 10 UNIT in 0.9 % Sodium Chloride 10 ML IV ONE (11:52)
[2021-02-20] MEDS ORDERED: Insulin LISPRO 300 UNITS/3 ML VIAL SUBQ SCH ×2 (12:10→17:00)
[2021-02-20] MEDS: cefTRIAXone 1,000 MG in Water for inj. (sterile) 10 ML IVP SCH (16:30)
[2021-02-20] MEDS: Metoprolol XL (24 HR) Succ 50 MG TAB.ER.24H PO SCH (17:53)
[2021-02-20] MEDS: Doxycycline 100 MG CAPSULE PO SCH (19:56)
[2021-02-21] MEDS: *HR* Heparin 5,000 UNIT/ML VIAL SQ SCH ×2 (05:56→16:17)
[2021-02-21 06:28] LABS: Basophils # 0.1 K/mcL (0.0-0.2); Basophils % 0.7 %; Eosinophils # 0.2 K/mcL (0.0-0.6); Eosinophils % 2.2 %; Hematocrit 29.2 % (37.5-50.1); Hemoglobin 9.4 g/dL (12.9-16.9); Immature Granulocytes % 1.1 % (0-4); Lymphocytes # 1.2 K/mcL (0.6-4.6); Lymphocytes % 13.3 %; Mean Corpuscular HGB Conc 32.2 g/dL (31.6-35.5); Mean Corpuscular Hemoglobin 29.3 pg (28.0-33.3); Mean Platelet Volume 11.4 fL (9.4-12.4); Monocytes # 1.1 K/mcL (0.0-1.3); Monocytes % 12.1 %; Neutrophils # 6.4 K/mcL (1.6-8.9); Platelet Count 181 K/mcL (140-400); Red Blood Count 3.21 M/mcL (4.19-5.50); Red Cell Distribution Width 12.7 % (11.5-14.5); Segmented Neutrophils % 70.6 %
[2021-02-21 06:51] LABS: Calcium 8.5 mg/dL (8.6-10.3); Potassium 3.8 mEq/L (3.5-5.1)
[2021-02-21] MEDS: Aspirin Enteric Coated 81 MG Tablet PO SCH (08:17)
[2021-02-21] MEDS: cilostazoL 100 MG TABLET PO SCH (08:18)
[2021-02-21] MEDS: allopurinoL 100 MG TABLET PO SCH (08:18)
[2021-02-21] MEDS: Metoprolol XL (24 HR) Succ 50 MG TAB.ER.24H PO SCH ×2 (08:18→21:50)
[2021-02-21] MEDS: Furosemide 40 MG TABLET PO SCH (08:19)
[2021-02-21] MEDS: amLODIPine 5 MG TABLET PO SCH (08:20)
[2021-02-21] MEDS: Insulin NPH/REG 70/30 100 UNIT/ML (x5UNIT) SUBQ SCH ×2 (08:20→17:01)
[2021-02-21] MEDS: Doxycycline 100 MG CAPSULE PO SCH ×2 (08:20→21:50)
[2021-02-21] MEDS: Cyanocobalamin (B-12) 1,000 MCG TABLET PO SCH (08:20)
[2021-02-21] MEDS: Insulin LISPRO 300 UNITS/3 ML VIAL SUBQ SCH ×3 (08:21→16:19)
[2021-02-21] MEDS: cefTRIAXone 1,000 MG in Water for inj. (sterile) 10 ML IVP SCH (08:29)
[2021-02-22 02:44] LABS: Basophils # 0.1 K/mcL (0.0-0.2); Basophils % 0.9 %; Eosinophils # 0.4 K/mcL (0.0-0.6); Eosinophils % 4.5 %; Hemoglobin 10.2 g/dL (12.9-16.9); Immature Granulocytes % 1.8 % (0-4); Lymphocytes # 1.2 K/mcL (0.6-4.6); Lymphocytes % 14.8 %; Mean Corpuscular HGB Conc 32.9 g/dL (31.6-35.5); Mean Corpuscular Hemoglobin 29.7 pg (28.0-33.3); Mean Corpuscular Volume 90.4 fL (83.0-100.0); Mean Platelet Volume 11.7 fL (9.4-12.4); Monocytes # 0.9 K/mcL (0.0-1.3); Monocytes % 11.1 %; Neutrophils # 5.3 K/mcL (1.6-8.9); Platelet Count 208 K/mcL (140-400); Red Blood Count 3.43 M/mcL (4.19-5.50); Red Cell Distribution Width 12.8 % (11.5-14.5); Segmented Neutrophils % 66.9 %; White Blood Count 7.9 K/mcL (4.3-11.1)
[2021-02-22 03:03] LABS: Calcium 8.6 mg/dL (8.6-10.3); Potassium 4.3 mEq/L (3.5-5.1)
[2021-02-22] MEDS: *HR* Heparin 5,000 UNIT/ML VIAL SQ SCH (05:38)
[2021-02-22 06:43] VITALS: BP 154/77; PULSE 103; TEMP 98; O2SAT 98
[2021-02-22] MEDS: Cyanocobalamin (B-12) 1,000 MCG TABLET PO SCH (07:52)
[2021-02-22] MEDS: Aspirin Enteric Coated 81 MG Tablet PO SCH (07:52)
[2021-02-22] MEDS: amLODIPine 5 MG TABLET PO SCH (07:52)
[2021-02-22] MEDS: allopurinoL 100 MG TABLET PO SCH (07:53)
[2021-02-22] MEDS: Metoprolol XL (24 HR) Succ 50 MG TAB.ER.24H PO SCH (07:54)
[2021-02-22] MEDS: cefTRIAXone 1,000 MG in Water for inj. (sterile) 10 ML IVP SCH (07:54)
[2021-02-22] MEDS: Doxycycline 100 MG CAPSULE PO SCH (07:57)
[2021-02-22] MEDS: Furosemide 40 MG TABLET PO SCH (07:57)
[2021-02-22] MEDS: Insulin LISPRO 300 UNITS/3 ML VIAL SUBQ SCH (08:12)
[2021-02-22] MEDS: Insulin NPH/REG 70/30 100 UNIT/ML (x5UNIT) SUBQ SCH (08:13)
== END 2021-02-22 10:14 | disposition home or self-care (01) | DRG 720 ==
LOC: EMEROOARM 16:43 → 2NENU 16:43 → SUATTDRO 21:55 → 2NENU 22:43 → SUATTDRO 02-20 18:53
PROVIDERS: ADMIT Internal Medicine; ATTEND Family Medicine

== ENCOUNTER 2021-06-23 19:09 | Inpatient (IN) ==
[2021-06-23] MEDS ORDERED: Vancomycin 1,000 MG VIAL IVPB ONE (19:31)
[2021-06-23] MEDS ORDERED: Piperacillin/Tazobactam 3.375 GM in Water for inj. (sterile) 20 ML IVP ONE (19:31)
[2021-06-23] MEDS ORDERED: Aspirin 325 MG TABLET PO ONE (19:40)
[2021-06-23] MEDS ORDERED: Vancomycin 2,000 MG/520 ML IV.SOLN IVPB ONE (19:42)
[2021-06-23 19:56] LABS: Basophils # 0.1 K/mcL (0.0-0.2); Basophils % 0.6 %; Eosinophils # 0.2 K/mcL (0.0-0.6); Eosinophils % 2.5 %; Hematocrit 35.1 % (37.5-50.1); Hemoglobin 11.4 g/dL (12.9-16.9); Immature Granulocytes % 0.6 % (0-4); Lymphocytes # 0.5 K/mcL (0.6-4.6); Lymphocytes % 5.7 %; Mean Corpuscular HGB Conc 32.5 g/dL (31.6-35.5); Mean Corpuscular Hemoglobin 29.6 pg (28.0-33.3); Mean Corpuscular Volume 91.2 fL (83.0-100.0); Mean Platelet Volume 12.3 fL (9.4-12.4); Monocytes # 0.7 K/mcL (0.0-1.3); Monocytes % 8.5 %; Platelet Count 188 K/mcL (140-400); Red Blood Count 3.85 M/mcL (4.19-5.50); Red Cell Distribution Width 13.9 % (11.5-14.5); Segmented Neutrophils % 82.1 %; White Blood Count 8.5 K/mcL (4.3-11.1)
[2021-06-23 20:03] LABS: INR 1.1; Prothrombin Time 12.7 Seconds (9.4-12.1)
[2021-06-23 20:06] LABS: Activated Partial Thrombo Time 31.4 Seconds (26.0-36.0)
[2021-06-23 20:27] LABS: Albumin 3.9 g/dL (3.5-5.7); Bilirubin,Direct 0.1 mg/dL (0.0-0.2); Bilirubin,Indirect 0.4 mg/dL (0.0-1.0); Bilirubin,Total 0.5 mg/dL (0.3-1.0); Calcium 8.7 mg/dL (8.6-10.3); Globulin 3.9 g/dL (2.4-3.5); Potassium 4.6 mEq/L (3.5-5.1); Total Protein 7.8 g/dL (6.4-8.9)
[2021-06-23 20:39] LABS: Influenza A PCR Negative (Negative); Influenza B PCR Negative (Negative); Resp. Syncytial Virus PCR Negative (Negative)
[2021-06-23 20:40] LABS: SARS-CoV-2 by PCR (In House) Positive (Negative)
[2021-06-23] MEDS ORDERED: 0.9 % Sodium Chloride 500 ML IV ONE (20:58)
[2021-06-23] MEDS ORDERED: Furosemide 40 MG/4 ML VIAL IVP ONE (21:30)
[2021-06-23 21:52] LABS: Troponin I 0.04 ng/mL (< 0.04)
[2021-06-23] MEDS ORDERED: Naloxone 0.4 MG/ML INJ IVP PRN (22:09)
[2021-06-23] MEDS ORDERED: Ondansetron 4 MG/2 ML VIAL IVP PRN (22:09)
[2021-06-23] MEDS ORDERED: Nitroglycerin 1 INCH/GM PACKET TP ONE (22:13)
[2021-06-23 22:30] LABS: Bilirubin,Urine Negative (Negative); Blood,Urine Moderate (Negative); Clarity,Urine Clear (Clear); Color,Urine Colorless (Yellow); Glucose,Urine (UA) 500 mg/dL (Normal); Ketones,Urine Negative (Negative); Leukocyte Esterase,Urine Negative (Negative); Nitrite,Urine Negative (Negative); PH,Urine 6.5 pH Units (5.0-8.0); Protein,Urine >=300 mg/dL (Neg-Trace); RBC,Urine 15-30 per hpf (0-3); Specific Gravity,Urine 1.013 (1.010-1.025); Urobilinogen,Urine Normal (Normal); WBC,Urine 0-3 per hpf (0-3)
[2021-06-24] MEDS ORDERED: D5% in Water 1,000 ML IVC PRN (00:27)
[2021-06-24] MEDS ORDERED: *HR* Dextrose 50 % in Water (Syg) 50 ML SYRINGE IVP PRN (00:27)
[2021-06-24] MEDS ORDERED: Dextrose Gel 15 GM/37.5 ML TUBE PO PRN ×2 (00:27)
[2021-06-24 01:09] LABS: INR 1.2; Prothrombin Time 13.2 Seconds (9.4-12.1)
[2021-06-24] MEDS: *HR* Heparin 5,000 UNIT/ML VIAL SQ SCH ×3 (05:36→20:53)
[2021-06-24] MEDS: Dexamethasone Sodium Phos/PF 10 MG/ML VIAL IVP SCH (07:29)
[2021-06-24] MEDS: Furosemide 40 MG/4 ML VIAL IVP SCH ×2 (07:29→17:14)
[2021-06-24] MEDS: Insulin LISPRO 300 UNITS/3 ML VIAL SUBQ SCH ×4 (07:33→20:51)
[2021-06-24] MEDS: *HR* HYDROcodone/Acet 5/325 mg TABLET PO PRN (12:16)
[2021-06-24] MEDS: polyethylene glycoL 3350 17 GM POWD.PACK PO SCH (13:54)
[2021-06-24 18:10] LABS: Basophils % 0.3 %; Hematocrit 31.3 % (37.5-50.1); Hemoglobin 10.1 g/dL (12.9-16.9); Immature Granulocytes % 1.1 % (0-4); Lymphocytes # 0.2 K/mcL (0.6-4.6); Lymphocytes % 3.1 %; Mean Corpuscular HGB Conc 32.3 g/dL (31.6-35.5); Mean Corpuscular Hemoglobin 29.6 pg (28.0-33.3); Mean Corpuscular Volume 91.8 fL (83.0-100.0); Mean Platelet Volume 11.9 fL (9.4-12.4); Monocytes # 0.3 K/mcL (0.0-1.3); Neutrophils # 5.9 K/mcL (1.6-8.9); Platelet Count 165 K/mcL (140-400); Red Blood Count 3.41 M/mcL (4.19-5.50); Red Cell Distribution Width 13.6 % (11.5-14.5); Segmented Neutrophils % 91.5 %; White Blood Count 6.5 K/mcL (4.3-11.1)
[2021-06-24 18:37] LABS: Albumin 3.5 g/dL (3.5-5.7); Albumin/Globulin Ratio 0.9 (1.1-2.2); Bilirubin,Total 0.4 mg/dL (0.3-1.0); Calcium 8.2 mg/dL (8.6-10.3); Globulin 3.8 g/dL (2.4-3.5); Phosphorous 3.1 mg/dL (2.7-4.5); Potassium 4.7 mEq/L (3.5-5.1); Total Protein 7.3 g/dL (6.4-8.9)
[2021-06-24] MEDS: Insulin DETEMIR 100 UNIT/ML X5UNITS SUBQ SCH (20:53)
[2021-06-24] MEDS ORDERED: Insulin DETEMIR 100 UNIT/ML X5UNITS SUBQ SCH (21:00)
[2021-06-24] MEDS ORDERED: Insulin LISPRO 300 UNITS/3 ML VIAL SUBQ SCH (21:00)
[2021-06-24] MEDS: Acetaminophen 325 MG TABLET PO PRN (23:16)
[2021-06-24] MEDS: Melatonin 3 MG TABLET PO PRN (23:17)
[2021-06-24] MEDS ORDERED: *HR* Labetalol 20 MG/4 ML SYRINGE IVP ONE (23:50)
[2021-06-25 05:59] LABS: Hematocrit 31.1 % (37.5-50.1); Hemoglobin 10.3 g/dL (12.9-16.9); Mean Corpuscular HGB Conc 33.1 g/dL (31.6-35.5); Mean Corpuscular Hemoglobin 29.9 pg (28.0-33.3); Mean Corpuscular Volume 90.1 fL (83.0-100.0); Mean Platelet Volume 12.3 fL (9.4-12.4); Platelet Count 171 K/mcL (140-400); Red Blood Count 3.45 M/mcL (4.19-5.50); Red Cell Distribution Width 13.4 % (11.5-14.5)
[2021-06-25] MEDS: *HR* Heparin 5,000 UNIT/ML VIAL SQ SCH ×3 (06:06→20:16)
[2021-06-25 06:31] LABS: Calcium 8.6 mg/dL (8.6-10.3); Potassium 4.3 mEq/L (3.5-5.1)
[2021-06-25] MEDS: amLODIPine 5 MG TABLET PO SCH (08:21)
[2021-06-25] MEDS: Aspirin Enteric Coated 81 MG Tablet PO SCH (08:21)
[2021-06-25] MEDS: Metoprolol XL (24 HR) Succ 50 MG TAB.ER.24H PO SCH (08:21)
[2021-06-25] MEDS: Insulin LISPRO 300 UNITS/3 ML VIAL SUBQ SCH ×4 (08:24→20:11)
[2021-06-25] MEDS: cefTRIAXone 1,000 MG in Water for inj. (sterile) 10 ML IVP SCH (08:36)
[2021-06-25] MEDS: Dexamethasone Sodium Phos/PF 10 MG/ML VIAL IVP SCH (08:36)
[2021-06-25] MEDS: Furosemide 40 MG/4 ML VIAL IVP SCH ×2 (08:37→17:32)
[2021-06-25] MEDS: polyethylene glycoL 3350 17 GM POWD.PACK PO SCH (09:31)
[2021-06-25] MEDS: *HR* HYDROcodone/Acet 5/325 mg TABLET PO PRN ×2 (11:09→20:11)
[2021-06-25] MEDS: GuaiFENesin/Dextromethorphan TABLET PO SCH ×2 (12:40→20:11)
[2021-06-25] MEDS: traZODone 50 MG TABLET PO SCH (20:11)
[2021-06-25] MEDS: Melatonin 3 MG TABLET PO PRN (20:11)
[2021-06-25] MEDS: Insulin DETEMIR 100 UNIT/ML X5UNITS SUBQ SCH (20:17)
[2021-06-26] MEDS: *HR* HYDROcodone/Acet 5/325 mg TABLET PO PRN (05:54)
[2021-06-26] MEDS: *HR* Heparin 5,000 UNIT/ML VIAL SQ SCH ×3 (05:55→19:36)
[2021-06-26] MEDS: Aspirin Enteric Coated 81 MG Tablet PO SCH (08:14)
[2021-06-26] MEDS: GuaiFENesin/Dextromethorphan TABLET PO SCH ×2 (08:14→19:37)
[2021-06-26] MEDS: Metoprolol XL (24 HR) Succ 50 MG TAB.ER.24H PO SCH (08:14)
[2021-06-26] MEDS: amLODIPine 5 MG TABLET PO SCH (08:14)
[2021-06-26] MEDS: Insulin LISPRO 300 UNITS/3 ML VIAL SUBQ SCH ×4 (08:16→21:05)
[2021-06-26] MEDS: cefTRIAXone 1,000 MG in Water for inj. (sterile) 10 ML IVP SCH (08:38)
[2021-06-26] MEDS: polyethylene glycoL 3350 17 GM POWD.PACK PO SCH (08:39)
[2021-06-26] MEDS: Furosemide 40 MG/4 ML VIAL IVP SCH ×2 (08:39→17:42)
[2021-06-26] MEDS: Dexamethasone Sodium Phos/PF 10 MG/ML VIAL IVP SCH (08:39)
[2021-06-26] MEDS: Acetaminophen 325 MG TABLET PO PRN (17:42)
[2021-06-26] MEDS: traZODone 50 MG TABLET PO SCH (19:37)
[2021-06-26] MEDS: Insulin DETEMIR 100 UNIT/ML X5UNITS SUBQ SCH (21:05)
[2021-06-27 01:07] LABS: Hematocrit 32.9 % (37.5-50.1); Hemoglobin 10.8 g/dL (12.9-16.9); Mean Corpuscular HGB Conc 32.8 g/dL (31.6-35.5); Mean Corpuscular Hemoglobin 29.1 pg (28.0-33.3); Mean Corpuscular Volume 88.7 fL (83.0-100.0); Mean Platelet Volume 12.2 fL (9.4-12.4); Platelet Count 155 K/mcL (140-400); Red Blood Count 3.71 M/mcL (4.19-5.50); Red Cell Distribution Width 13.3 % (11.5-14.5); White Blood Count 7.2 K/mcL (4.3-11.1)
[2021-06-27 01:28] LABS: Phosphorous 4.8 mg/dL (2.7-4.5); Potassium 4.3 mEq/L (3.5-5.1)
[2021-06-27] MEDS ORDERED: *HR* Metoprolol 5 MG/5 ML VIAL IVP ONE (02:04)
[2021-06-27] MEDS: *HR* Heparin 5,000 UNIT/ML VIAL SQ SCH ×3 (05:30→21:24)
[2021-06-27] MEDS: Insulin LISPRO 300 UNITS/3 ML VIAL SUBQ SCH ×4 (08:12→21:25)
[2021-06-27] MEDS: Dexamethasone Sodium Phos/PF 10 MG/ML VIAL IVP SCH (08:13)
[2021-06-27] MEDS: Furosemide 40 MG/4 ML VIAL IVP SCH ×2 (08:14→16:35)
[2021-06-27] MEDS: cefTRIAXone 1,000 MG in Water for inj. (sterile) 10 ML IVP SCH (08:15)
[2021-06-27] MEDS: Metoprolol XL (24 HR) Succ 50 MG TAB.ER.24H PO SCH (08:16)
[2021-06-27] MEDS: amLODIPine 5 MG TABLET PO SCH (08:16)
[2021-06-27] MEDS: Aspirin Enteric Coated 81 MG Tablet PO SCH (08:16)
[2021-06-27] MEDS: GuaiFENesin/Dextromethorphan TABLET PO SCH ×2 (08:16→21:24)
[2021-06-27] MEDS: Acetaminophen 325 MG TABLET PO PRN (08:35)
[2021-06-27] MEDS: polyethylene glycoL 3350 17 GM POWD.PACK PO SCH (12:14)
[2021-06-27] MEDS: Ipratropium 1 PUFF INHALER IH SCH ×3 (16:31→23:21)
[2021-06-27] MEDS: Insulin DETEMIR 100 UNIT/ML X5UNITS SUBQ SCH (21:24)
[2021-06-27] MEDS: traZODone 50 MG TABLET PO SCH (21:25)
[2021-06-27] MEDS: *HR* HYDROcodone/Acet 5/325 mg TABLET PO PRN (21:34)
[2021-06-28] MEDS: Ipratropium 1 PUFF INHALER IH SCH ×5 (03:48→20:48)
[2021-06-28] MEDS: *HR* Heparin 5,000 UNIT/ML VIAL SQ SCH ×3 (05:46→22:32)
[2021-06-28 06:34] LABS: Basophils % 0.1 %; Hematocrit 29.8 % (37.5-50.1); Hemoglobin 10.1 g/dL (12.9-16.9); Immature Granulocytes % 0.7 % (0-4); Lymphocytes # 0.3 K/mcL (0.6-4.6); Lymphocytes % 3.2 %; Mean Corpuscular HGB Conc 33.9 g/dL (31.6-35.5); Mean Corpuscular Hemoglobin 29.5 pg (28.0-33.3); Mean Corpuscular Volume 87.1 fL (83.0-100.0); Mean Platelet Volume 12.5 fL (9.4-12.4); Monocytes # 0.5 K/mcL (0.0-1.3); Monocytes % 5.3 %; Neutrophils # 8.5 K/mcL (1.6-8.9); Platelet Count 150 K/mcL (140-400); Red Blood Count 3.42 M/mcL (4.19-5.50); Red Cell Distribution Width 13.2 % (11.5-14.5); Segmented Neutrophils % 90.7 %; White Blood Count 9.4 K/mcL (4.3-11.1)
[2021-06-28 07:57] LABS: Albumin 3.2 g/dL (3.5-5.7); Bilirubin,Total 0.4 mg/dL (0.3-1.0); Calcium 7.9 mg/dL (8.6-10.3); Potassium 4.3 mEq/L (3.5-5.1); Total Protein 6.8 g/dL (6.4-8.9)
[2021-06-28 07:58] LABS: Albumin/Globulin Ratio 0.9 (1.1-2.2); Globulin 3.6 g/dL (2.4-3.5)
[2021-06-28] MEDS: Furosemide 40 MG/4 ML VIAL IVP SCH ×2 (08:35→16:17)
[2021-06-28] MEDS: amLODIPine 5 MG TABLET PO SCH (08:36)
[2021-06-28] MEDS: GuaiFENesin/Dextromethorphan TABLET PO SCH ×2 (08:36→22:32)
[2021-06-28] MEDS: Metoprolol XL (24 HR) Succ 50 MG TAB.ER.24H PO SCH (08:36)
[2021-06-28] MEDS: Dexamethasone Sodium Phos/PF 10 MG/ML VIAL IVP SCH (08:36)
[2021-06-28] MEDS: cefTRIAXone 1,000 MG in Water for inj. (sterile) 10 ML IVP SCH (08:37)
[2021-06-28] MEDS: polyethylene glycoL 3350 17 GM POWD.PACK PO SCH (08:37)
[2021-06-28] MEDS: Acetaminophen 325 MG TABLET PO PRN (08:37)
[2021-06-28] MEDS: Aspirin Enteric Coated 81 MG Tablet PO SCH (08:37)
[2021-06-28] MEDS: Insulin LISPRO 300 UNITS/3 ML VIAL SUBQ SCH ×4 (08:42→22:40)
[2021-06-28] MEDS ORDERED: Insulin DETEMIR 100 UNIT/ML X5UNITS SUBQ STA (09:03)
[2021-06-28] MEDS: traZODone 50 MG TABLET PO SCH (22:31)
[2021-06-28] MEDS: Insulin DETEMIR 100 UNIT/ML X5UNITS SUBQ SCH (22:31)
[2021-06-29] MEDS: Ipratropium 1 PUFF INHALER IH SCH ×7 (00:11→23:53)
[2021-06-29 05:12] LABS: Basophils % 0.2 %; Hemoglobin 9.2 g/dL (12.9-16.9); Immature Granulocytes % 1.3 % (0-4); Lymphocytes # 0.3 K/mcL (0.6-4.6); Lymphocytes % 4.4 %; Mean Corpuscular HGB Conc 32.9 g/dL (31.6-35.5); Mean Corpuscular Hemoglobin 28.8 pg (28.0-33.3); Mean Corpuscular Volume 87.8 fL (83.0-100.0); Mean Platelet Volume 12.7 fL (9.4-12.4); Monocytes # 0.4 K/mcL (0.0-1.3); Monocytes % 6.9 %; Neutrophils # 5.3 K/mcL (1.6-8.9); Platelet Count 156 K/mcL (140-400); Red Blood Count 3.19 M/mcL (4.19-5.50); Red Cell Distribution Width 13.2 % (11.5-14.5); Segmented Neutrophils % 87.2 %; White Blood Count 6.1 K/mcL (4.3-11.1)
[2021-06-29 05:25] LABS: Calcium 7.8 mg/dL (8.6-10.3); Potassium 3.9 mEq/L (3.5-5.1)
[2021-06-29] MEDS: *HR* Heparin 5,000 UNIT/ML VIAL SQ SCH ×3 (06:47→20:29)
[2021-06-29] MEDS ORDERED: Insulin DETEMIR 100 UNIT/ML X5UNITS SUBQ SCH ×2 (09:00→21:00)
[2021-06-29] MEDS: GuaiFENesin/Dextromethorphan TABLET PO SCH ×2 (10:18→20:29)
[2021-06-29] MEDS: Dexamethasone Sodium Phos/PF 10 MG/ML VIAL IVP SCH (10:19)
[2021-06-29] MEDS: Aspirin Enteric Coated 81 MG Tablet PO SCH (10:19)
[2021-06-29] MEDS: Metoprolol XL (24 HR) Succ 50 MG TAB.ER.24H PO SCH (10:19)
[2021-06-29] MEDS: cefTRIAXone 1,000 MG in Water for inj. (sterile) 10 ML IVP SCH (10:19)
[2021-06-29] MEDS: amLODIPine 5 MG TABLET PO SCH (10:19)
[2021-06-29] MEDS: Insulin LISPRO 300 UNITS/3 ML VIAL SUBQ SCH ×5 (10:32→23:41)
[2021-06-29] MEDS: Furosemide 40 MG/4 ML VIAL IVP SCH ×2 (10:33→17:19)
[2021-06-29] MEDS: polyethylene glycoL 3350 17 GM POWD.PACK PO SCH (10:45)
[2021-06-29] MEDS ORDERED: Insulin DETEMIR 100 UNIT/ML X5UNITS SUBQ STA (12:12)
[2021-06-29] MEDS ORDERED: Insulin LISPRO 300 UNITS/3 ML VIAL SUBQ SCH (17:00)
[2021-06-29 17:43] LABS: Calcium 7.9 mg/dL (8.6-10.3); Potassium 4.4 mEq/L (3.5-5.1)
[2021-06-29] MEDS: traZODone 50 MG TABLET PO SCH (20:29)
[2021-06-30] MEDS: Insulin LISPRO 300 UNITS/3 ML VIAL SUBQ SCH ×6 (03:37→23:46)
[2021-06-30] MEDS: Ipratropium 1 PUFF INHALER IH SCH ×5 (04:15→20:31)
[2021-06-30] MEDS: *HR* Heparin 5,000 UNIT/ML VIAL SQ SCH ×3 (05:23→20:45)
[2021-06-30 07:13] LABS: Potassium 3.7 mEq/L (3.5-5.1)
[2021-06-30] MEDS ORDERED: Insulin DETEMIR 100 UNIT/ML X5UNITS SUBQ SCH (09:00)
[2021-06-30] MEDS: polyethylene glycoL 3350 17 GM POWD.PACK PO SCH (09:54)
[2021-06-30] MEDS: amLODIPine 5 MG TABLET PO SCH (09:55)
[2021-06-30] MEDS: GuaiFENesin/Dextromethorphan TABLET PO SCH ×2 (09:55→20:48)
[2021-06-30] MEDS: Furosemide 40 MG/4 ML VIAL IVP SCH (09:55)
[2021-06-30] MEDS: Metoprolol XL (24 HR) Succ 50 MG TAB.ER.24H PO SCH (09:55)
[2021-06-30] MEDS: Insulin DETEMIR 100 UNIT/ML X5UNITS SUBQ SCH ×2 (09:56→20:45)
[2021-06-30] MEDS: Dexamethasone Sodium Phos/PF 10 MG/ML VIAL IVP SCH (09:56)
[2021-06-30] MEDS: cefTRIAXone 1,000 MG in Water for inj. (sterile) 10 ML IVP SCH (09:57)
[2021-06-30] MEDS: Aspirin Enteric Coated 81 MG Tablet PO SCH (09:57)
[2021-06-30] MEDS ORDERED: Insulin LISPRO 300 UNITS/3 ML VIAL SUBQ ONE (17:15)
[2021-06-30] MEDS: Furosemide 40 MG TABLET PO SCH (17:21)
[2021-06-30] MEDS: traZODone 50 MG TABLET PO SCH (20:47)
[2021-07-01] MEDS: Ipratropium 1 PUFF INHALER IH SCH ×4 (00:04→11:17)
[2021-07-01 04:27] VITALS: O2SAT 96
[2021-07-01] MEDS: Insulin LISPRO 300 UNITS/3 ML VIAL SUBQ SCH ×2 (05:26→08:59)
[2021-07-01] MEDS: *HR* Heparin 5,000 UNIT/ML VIAL SQ SCH (05:27)
[2021-07-01 07:21] LABS: Calcium 8.1 mg/dL (8.6-10.3); Potassium 3.7 mEq/L (3.5-5.1)
[2021-07-01 07:48] VITALS: BP 133/77; PULSE 95; TEMP 97.6
[2021-07-01] MEDS ORDERED: Insulin LISPRO 300 UNITS/3 ML VIAL SUBQ SCH (08:00)
[2021-07-01] MEDS: Metoprolol XL (24 HR) Succ 50 MG TAB.ER.24H PO SCH (08:57)
[2021-07-01] MEDS: Aspirin Enteric Coated 81 MG Tablet PO SCH (08:58)
[2021-07-01] MEDS: Dexamethasone Sodium Phos/PF 10 MG/ML VIAL IVP SCH (08:58)
[2021-07-01] MEDS: GuaiFENesin/Dextromethorphan TABLET PO SCH (08:58)
[2021-07-01] MEDS: amLODIPine 5 MG TABLET PO SCH (08:58)
[2021-07-01] MEDS: Furosemide 40 MG TABLET PO SCH (08:58)
[2021-07-01] MEDS: cefTRIAXone 1,000 MG in Water for inj. (sterile) 10 ML IVP SCH (08:58)
[2021-07-01] MEDS ORDERED: Insulin DETEMIR 100 UNIT/ML X5UNITS SUBQ SCH (09:00)
[2021-07-01] MEDS ORDERED: Furosemide 40 MG TABLET PO SCH (09:00)
[2021-07-01] MEDS: polyethylene glycoL 3350 17 GM POWD.PACK PO SCH (09:01)
[2021-07-01] MEDS ORDERED: FLU Vac QV 21-22 (6Month+)/PF 0.5 ML SYRINGE IM ONE (10:32)
== END 2021-06-30 12:15 | disposition home or self-care (01) | DRG 720 ==
LOC: EMEROOARM 19:09 → 3NENU 19:09 → SUATTDRO 21:37 → 3NENU 22:30 → SUATTDRO 06-24 11:52
PROVIDERS: ADMIT Family Medicine; ATTEND Family Medicine

== ENCOUNTER 2021-07-19 10:59 | Inpatient (IN) ==
[2021-07-19] MEDS ORDERED: Furosemide 40 MG/4 ML VIAL IVP ONE ×3 (11:56→22:00)
[2021-07-19] MEDS ORDERED: Nitroglycerin 0.4 MG TAB.SUBL SL STA (11:56)
[2021-07-19 12:23] LABS: Basophils % 0.4 %; Eosinophils # 0.2 K/mcL (0.0-0.6); Eosinophils % 2.7 %; Hemoglobin 9.7 g/dL (12.9-16.9); Immature Granulocytes % 1.1 % (0-4); Lymphocytes # 0.9 K/mcL (0.6-4.6); Lymphocytes % 12.8 %; Mean Corpuscular HGB Conc 32.3 g/dL (31.6-35.5); Mean Corpuscular Hemoglobin 29.9 pg (28.0-33.3); Mean Corpuscular Volume 92.6 fL (83.0-100.0); Mean Platelet Volume 12.1 fL (9.4-12.4); Monocytes # 0.5 K/mcL (0.0-1.3); Monocytes % 7.4 %; Neutrophils # 5.3 K/mcL (1.6-8.9); Platelet Count 158 K/mcL (140-400); Red Blood Count 3.24 M/mcL (4.19-5.50); Red Cell Distribution Width 14.1 % (11.5-14.5); Segmented Neutrophils % 75.6 %
[2021-07-19 12:47] LABS: Calcium 8.4 mg/dL (8.6-10.3); Potassium 4.8 mEq/L (3.5-5.1); Troponin I 0.07 ng/mL (< 0.04)
[2021-07-19 13:28] LABS: Influenza A PCR Negative (Negative); Influenza B PCR Negative (Negative); Resp. Syncytial Virus PCR Negative (Negative)
[2021-07-19 13:41] LABS: SARS-CoV-2 by PCR (In House) Positive (Negative)
[2021-07-19] MEDS ORDERED: Naloxone 0.4 MG/ML INJ IVP PRN (14:21)
[2021-07-19] MEDS ORDERED: Ondansetron ODT 4 MG TAB.RAPDIS SL PRN (14:21)
[2021-07-19] MEDS ORDERED: Perflutren Lipid Microsphere 1.3 ML in 0.9 % Sodium Chloride 8.7 ML IVP PRN (14:29)
[2021-07-19] MEDS ORDERED: *HR* Dextrose 50 % in Water (Syg) 50 ML SYRINGE IVP PRN (14:44)
[2021-07-19] MEDS ORDERED: Dextrose Gel 15 GM/37.5 ML TUBE PO PRN ×2 (14:44)
[2021-07-19] MEDS ORDERED: D5% in Water 1,000 ML IVC PRN (14:44)
[2021-07-19] MEDS: Metoprolol XL (24 HR) Succ 50 MG TAB.ER.24H PO SCH (17:34)
[2021-07-19] MEDS: amLODIPine 5 MG TABLET PO SCH (17:35)
[2021-07-19] MEDS: Insulin LISPRO 300 UNITS/3 ML VIAL SUBQ SCH (17:40)
[2021-07-19] MEDS: Furosemide 40 MG TABLET PO SCH (17:49)
[2021-07-19] MEDS: Albumin 25% 25gram/100mL 25 GM/100 ML IV.SOLN IVC SCH ×2 (18:08→18:09)
[2021-07-19] MEDS ORDERED: Albumin 25% 25gram/100mL 25 GM/100 ML IV.SOLN IVPB ONE (18:10)
[2021-07-19] MEDS: *HR* Heparin 5,000 UNIT/ML VIAL SQ SCH (20:42)
[2021-07-19] MEDS: Melatonin 3 MG TABLET PO PRN (20:42)
[2021-07-19] MEDS: Insulin DETEMIR 100 UNIT/ML X5UNITS SUBQ SCH (20:58)
[2021-07-20 00:38] LABS: Hematocrit 29.4 % (37.5-50.1); Hemoglobin 9.4 g/dL (12.9-16.9); Mean Corpuscular Hemoglobin 29.9 pg (28.0-33.3); Mean Corpuscular Volume 93.6 fL (83.0-100.0); Mean Platelet Volume 12.4 fL (9.4-12.4); Platelet Count 153 K/mcL (140-400); Red Blood Count 3.14 M/mcL (4.19-5.50); Red Cell Distribution Width 14.1 % (11.5-14.5); White Blood Count 6.2 K/mcL (4.3-11.1)
[2021-07-20 00:51] LABS: Prothrombin Time 11.3 Seconds (9.4-12.1)
[2021-07-20 01:01] LABS: Albumin 3.4 g/dL (3.5-5.7); Bilirubin,Total 0.6 mg/dL (0.3-1.0); Calcium 8.6 mg/dL (8.6-10.3); Globulin 3.5 g/dL (2.4-3.5); Magnesium 1.9 mg/dL (1.6-2.6); Potassium 4.7 mEq/L (3.5-5.1); Total Protein 6.9 g/dL (6.4-8.9); Troponin I 0.05 ng/mL (< 0.04)
[2021-07-20] MEDS: *HR* Heparin 5,000 UNIT/ML VIAL SQ SCH ×3 (05:20→22:03)
[2021-07-20] MEDS: Insulin LISPRO 300 UNITS/3 ML VIAL SUBQ SCH ×3 (08:14→17:16)
[2021-07-20] MEDS: Furosemide 40 MG TABLET PO SCH (08:15)
[2021-07-20] MEDS: Aspirin Enteric Coated 81 MG Tablet PO SCH (08:15)
[2021-07-20] MEDS: Metoprolol XL (24 HR) Succ 50 MG TAB.ER.24H PO SCH (08:15)
[2021-07-20] MEDS: amLODIPine 5 MG TABLET PO SCH (08:15)
[2021-07-20] MEDS: Insulin DETEMIR 100 UNIT/ML X5UNITS SUBQ SCH ×2 (10:08→22:03)
[2021-07-20] MEDS: Furosemide 40 MG/4 ML VIAL IVP SCH ×3 (10:08→18:07)
[2021-07-20] MEDS: Acetaminophen 325 MG TABLET PO PRN (22:03)
[2021-07-21 05:55] LABS: Hematocrit 30.3 % (37.5-50.1); Hemoglobin 9.7 g/dL (12.9-16.9); Mean Corpuscular Hemoglobin 29.8 pg (28.0-33.3); Mean Corpuscular Volume 92.9 fL (83.0-100.0); Mean Platelet Volume 11.8 fL (9.4-12.4); Platelet Count 161 K/mcL (140-400); Red Blood Count 3.26 M/mcL (4.19-5.50); White Blood Count 6.3 K/mcL (4.3-11.1)
[2021-07-21 06:12] LABS: Calcium 8.6 mg/dL (8.6-10.3); Potassium 4.1 mEq/L (3.5-5.1)
[2021-07-21] MEDS: *HR* Heparin 5,000 UNIT/ML VIAL SQ SCH ×3 (06:28→21:41)
[2021-07-21] MEDS: Aspirin Enteric Coated 81 MG Tablet PO SCH (08:04)
[2021-07-21] MEDS: Metoprolol XL (24 HR) Succ 50 MG TAB.ER.24H PO SCH (08:04)
[2021-07-21] MEDS: amLODIPine 5 MG TABLET PO SCH (08:04)
[2021-07-21] MEDS: Furosemide 40 MG/4 ML VIAL IVP SCH ×2 (08:05→16:24)
[2021-07-21] MEDS: Insulin LISPRO 300 UNITS/3 ML VIAL SUBQ SCH ×5 (08:07→16:24)
[2021-07-21] MEDS: Insulin DETEMIR 100 UNIT/ML X5UNITS SUBQ SCH ×2 (08:20→21:40)
[2021-07-21] MEDS: levoFLOXacin 750 MG TABLET PO SCH (12:58)
[2021-07-22 03:06] LABS: Calcium 8.4 mg/dL (8.6-10.3)
[2021-07-22] MEDS: *HR* Heparin 5,000 UNIT/ML VIAL SQ SCH ×3 (05:03→22:29)
[2021-07-22] MEDS: Insulin LISPRO 300 UNITS/3 ML VIAL SUBQ SCH ×6 (08:45→17:21)
[2021-07-22] MEDS: Furosemide 40 MG/4 ML VIAL IVP SCH (08:46)
[2021-07-22] MEDS: Metoprolol XL (24 HR) Succ 50 MG TAB.ER.24H PO SCH (08:46)
[2021-07-22] MEDS: Aspirin Enteric Coated 81 MG Tablet PO SCH (08:46)
[2021-07-22] MEDS: amLODIPine 5 MG TABLET PO SCH (08:47)
[2021-07-22] MEDS: Insulin DETEMIR 100 UNIT/ML X5UNITS SUBQ SCH ×2 (08:53→22:28)
[2021-07-22] MEDS: Furosemide 40 MG TABLET PO SCH (17:23)
[2021-07-23] MEDS: *HR* Heparin 5,000 UNIT/ML VIAL SQ SCH ×3 (06:24→21:58)
[2021-07-23 06:56] LABS: Basophils # 0.1 K/mcL (0.0-0.2); Basophils % 0.8 %; Eosinophils # 0.4 K/mcL (0.0-0.6); Eosinophils % 5.4 %; Hemoglobin 9.3 g/dL (12.9-16.9); Immature Granulocytes % 5.1 % (0-4); Lymphocytes % 14.6 %; Mean Corpuscular HGB Conc 33.2 g/dL (31.6-35.5); Mean Corpuscular Hemoglobin 30.3 pg (28.0-33.3); Mean Corpuscular Volume 91.2 fL (83.0-100.0); Mean Platelet Volume 11.7 fL (9.4-12.4); Monocytes # 0.6 K/mcL (0.0-1.3); Monocytes % 9.5 %; Neutrophils # 4.2 K/mcL (1.6-8.9); Nucleated Red Blood Cells 0.3 /100 WBC (0); Platelet Count 180 K/mcL (140-400); Red Blood Count 3.07 M/mcL (4.19-5.50); Segmented Neutrophils % 64.6 %; White Blood Count 6.5 K/mcL (4.3-11.1)
[2021-07-23 07:18] LABS: Calcium 8.8 mg/dL (8.6-10.3); Potassium 4.1 mEq/L (3.5-5.1)
[2021-07-23] MEDS: Metoprolol XL (24 HR) Succ 50 MG TAB.ER.24H PO SCH (10:19)
[2021-07-23] MEDS: amLODIPine 5 MG TABLET PO SCH (10:20)
[2021-07-23] MEDS: Aspirin Enteric Coated 81 MG Tablet PO SCH (10:21)
[2021-07-23] MEDS: Insulin LISPRO 300 UNITS/3 ML VIAL SUBQ SCH ×6 (10:22→16:54)
[2021-07-23] MEDS: levoFLOXacin 750 MG TABLET PO SCH (10:38)
[2021-07-23] MEDS: Furosemide 40 MG TABLET PO SCH (10:38)
[2021-07-23] MEDS: Furosemide 40 MG/4 ML VIAL IVP SCH ×2 (15:55→21:58)
[2021-07-23] MEDS: Insulin DETEMIR 100 UNIT/ML X5UNITS SUBQ SCH ×2 (16:13→21:59)
[2021-07-23] MEDS: Gentamicin Oint 15 GM TUBE TP SCH (17:23)
[2021-07-24] MEDS: *HR* Heparin 5,000 UNIT/ML VIAL SQ SCH ×3 (06:42→21:30)
[2021-07-24 07:44] LABS: Eosinophils # 0.3 K/mcL (0.0-0.6); Hematocrit 28.4 % (37.5-50.1); Hemoglobin 9.3 g/dL (12.9-16.9); Mean Corpuscular HGB Conc 32.7 g/dL (31.6-35.5); Mean Corpuscular Hemoglobin 29.5 pg (28.0-33.3); Mean Corpuscular Volume 90.2 fL (83.0-100.0); Mean Platelet Volume 12.1 fL (9.4-12.4); Nucleated Red Blood Cells 0.3 /100 WBC (0); Platelet Count 173 K/mcL (140-400); Red Blood Count 3.15 M/mcL (4.19-5.50); White Blood Count 7.3 K/mcL (4.3-11.1)
[2021-07-24] MEDS: Insulin LISPRO 300 UNITS/3 ML VIAL SUBQ SCH ×6 (08:11→16:50)
[2021-07-24 08:12] LABS: Calcium 8.5 mg/dL (8.6-10.3); Potassium 5.6 mEq/L (3.5-5.1)
[2021-07-24 08:13] LABS: Anisocytosis 1+ (Not Present); Lymphocytes # 0.6 K/mcL (0.6-4.6); Monocytes # 0.4 K/mcL (0.0-1.3); Platelet Estimate Normal (Normal)
[2021-07-24] MEDS ORDERED: SODIUM ZIRCONIUM CYCLOSILICATE 5 GM POWD.PACK PO ONE (08:21)
[2021-07-24] MEDS: amLODIPine 5 MG TABLET PO SCH (08:38)
[2021-07-24] MEDS: Aspirin Enteric Coated 81 MG Tablet PO SCH (08:38)
[2021-07-24] MEDS: Gentamicin Oint 15 GM TUBE TP SCH (08:38)
[2021-07-24] MEDS: Metoprolol XL (24 HR) Succ 50 MG TAB.ER.24H PO SCH (08:38)
[2021-07-24] MEDS: Insulin DETEMIR 100 UNIT/ML X5UNITS SUBQ SCH (08:49)
[2021-07-24] MEDS: Furosemide 40 MG/4 ML VIAL IVP SCH ×3 (11:05→21:28)
[2021-07-24] MEDS ORDERED: Insulin DETEMIR 100 UNIT/ML X5UNITS SUBQ SCH (21:00)
[2021-07-25] MEDS: *HR* Heparin 5,000 UNIT/ML VIAL SQ SCH ×3 (05:36→20:52)
[2021-07-25 07:23] LABS: Calcium 8.8 mg/dL (8.6-10.3); Potassium 4.2 mEq/L (3.5-5.1)
[2021-07-25] MEDS: amLODIPine 5 MG TABLET PO SCH (07:54)
[2021-07-25] MEDS: Metoprolol XL (24 HR) Succ 50 MG TAB.ER.24H PO SCH (07:54)
[2021-07-25] MEDS: Aspirin Enteric Coated 81 MG Tablet PO SCH (07:54)
[2021-07-25] MEDS: Gentamicin Oint 15 GM TUBE TP SCH (07:55)
[2021-07-25] MEDS: hydrALAZINE 25 MG TABLET PO SCH ×2 (08:38→20:54)
[2021-07-25] MEDS: allopurinoL 100 MG TABLET PO SCH (08:39)
[2021-07-25] MEDS: Insulin LISPRO 300 UNITS/3 ML VIAL SUBQ SCH ×5 (08:41→17:59)
[2021-07-25] MEDS: Insulin DETEMIR 100 UNIT/ML X5UNITS SUBQ SCH ×2 (09:23→20:54)
[2021-07-25] MEDS: Furosemide 40 MG/4 ML VIAL IVP SCH ×3 (09:34→20:54)
[2021-07-25] MEDS: polyethylene glycoL 3350 17 GM POWD.PACK PO SCH (18:10)
[2021-07-25] MEDS: traZODone 50 MG TABLET PO SCH (20:53)
[2021-07-25] MEDS: Melatonin 3 MG TABLET PO PRN (20:54)
[2021-07-25] MEDS: metOLazone 5 MG TABLET PO SCH (21:28)
[2021-07-26 02:12] LABS: Basophils # 0.1 K/mcL (0.0-0.2); Basophils % 0.9 %; Eosinophils # 0.3 K/mcL (0.0-0.6); Eosinophils % 3.1 %; Hematocrit 26.5 % (37.5-50.1); Hemoglobin 8.6 g/dL (12.9-16.9); Immature Granulocytes % 5.5 % (0-4); Lymphocytes # 1.1 K/mcL (0.6-4.6); Lymphocytes % 13.5 %; Mean Corpuscular HGB Conc 32.5 g/dL (31.6-35.5); Mean Corpuscular Hemoglobin 30.1 pg (28.0-33.3); Mean Corpuscular Volume 92.7 fL (83.0-100.0); Mean Platelet Volume 11.5 fL (9.4-12.4); Monocytes # 0.8 K/mcL (0.0-1.3); Monocytes % 10.1 %; Neutrophils # 5.5 K/mcL (1.6-8.9); Nucleated Red Blood Cells 0.4 /100 WBC (0); Platelet Count 199 K/mcL (140-400); Red Blood Count 2.86 M/mcL (4.19-5.50); Red Cell Distribution Width 13.9 % (11.5-14.5); Segmented Neutrophils % 66.9 %; White Blood Count 8.2 K/mcL (4.3-11.1)
[2021-07-26 02:56] LABS: Calcium 8.3 mg/dL (8.6-10.3); Potassium 4.2 mEq/L (3.5-5.1)
[2021-07-26 02:57] LABS: Platelet Estimate Normal (Normal); Polychromasia 1+ (Not Present)
[2021-07-26] MEDS: *HR* Heparin 5,000 UNIT/ML VIAL SQ SCH ×2 (06:40→13:10)
[2021-07-26] MEDS: Metoprolol XL (24 HR) Succ 50 MG TAB.ER.24H PO SCH (07:46)
[2021-07-26] MEDS: Aspirin Enteric Coated 81 MG Tablet PO SCH (07:46)
[2021-07-26] MEDS: amLODIPine 5 MG TABLET PO SCH (07:46)
[2021-07-26] MEDS: hydrALAZINE 25 MG TABLET PO SCH ×2 (07:46→22:06)
[2021-07-26] MEDS: polyethylene glycoL 3350 17 GM POWD.PACK PO SCH (07:47)
[2021-07-26] MEDS: allopurinoL 100 MG TABLET PO SCH (07:47)
[2021-07-26] MEDS: metOLazone 5 MG TABLET PO SCH ×2 (07:47→22:06)
[2021-07-26] MEDS: Insulin LISPRO 300 UNITS/3 ML VIAL SUBQ SCH ×6 (07:48→16:12)
[2021-07-26] MEDS: Insulin DETEMIR 100 UNIT/ML X5UNITS SUBQ SCH ×2 (07:51→22:07)
[2021-07-26] MEDS: Gentamicin Oint 15 GM TUBE TP SCH (09:52)
[2021-07-26] MEDS: Furosemide 40 MG/4 ML VIAL IVP SCH (09:52)
[2021-07-26] MEDS ORDERED: Insulin Human Regular 20 UNIT in 0.9 % Sodium Chloride 10 ML IV ONE (11:10)
[2021-07-26] MEDS: traZODone 50 MG TABLET PO SCH (22:06)
[2021-07-27] MEDS: *HR* Heparin 5,000 UNIT/ML VIAL SQ SCH ×4 (00:12→22:05)
[2021-07-27] MEDS: Aspirin Enteric Coated 81 MG Tablet PO SCH (09:02)
[2021-07-27] MEDS: Insulin DETEMIR 100 UNIT/ML X5UNITS SUBQ SCH ×2 (09:02→22:08)
[2021-07-27] MEDS: polyethylene glycoL 3350 17 GM POWD.PACK PO SCH (09:03)
[2021-07-27] MEDS: Metoprolol XL (24 HR) Succ 50 MG TAB.ER.24H PO SCH (09:03)
[2021-07-27] MEDS: metOLazone 5 MG TABLET PO SCH ×2 (09:03→22:00)
[2021-07-27] MEDS: allopurinoL 100 MG TABLET PO SCH (09:03)
[2021-07-27] MEDS: amLODIPine 5 MG TABLET PO SCH (09:03)
[2021-07-27] MEDS: hydrALAZINE 25 MG TABLET PO SCH ×2 (09:03→21:59)
[2021-07-27] MEDS: Insulin LISPRO 300 UNITS/3 ML VIAL SUBQ SCH ×6 (09:04→18:42)
[2021-07-27] MEDS: Gentamicin Oint 15 GM TUBE TP SCH (09:05)
[2021-07-27 09:27] LABS: Basophils # 0.1 K/mcL (0.0-0.2); Basophils % 0.9 %; Eosinophils # 0.3 K/mcL (0.0-0.6); Eosinophils % 2.7 %; Hematocrit 29.2 % (37.5-50.1); Hemoglobin 9.3 g/dL (12.9-16.9); Immature Granulocytes % 4.7 % (0-4); Lymphocytes # 1.2 K/mcL (0.6-4.6); Lymphocytes % 12.7 %; Mean Corpuscular HGB Conc 31.8 g/dL (31.6-35.5); Mean Corpuscular Hemoglobin 29.2 pg (28.0-33.3); Mean Corpuscular Volume 91.5 fL (83.0-100.0); Mean Platelet Volume 11.4 fL (9.4-12.4); Monocytes # 0.7 K/mcL (0.0-1.3); Monocytes % 7.7 %; Neutrophils # 6.7 K/mcL (1.6-8.9); Platelet Count 220 K/mcL (140-400); Red Blood Count 3.19 M/mcL (4.19-5.50); Red Cell Distribution Width 14.3 % (11.5-14.5); Segmented Neutrophils % 71.3 %; White Blood Count 9.3 K/mcL (4.3-11.1)
[2021-07-27 09:33] LABS: Prothrombin Time 11.3 Seconds (9.4-12.1)
[2021-07-27 09:54] LABS: Calcium 8.6 mg/dL (8.6-10.3); Potassium 4.2 mEq/L (3.5-5.1)
[2021-07-27] MEDS: Furosemide 40 MG/4 ML VIAL IVP SCH ×2 (13:36→22:00)
[2021-07-27] MEDS: Melatonin 3 MG TABLET PO PRN (21:59)
[2021-07-27] MEDS: Acetaminophen 325 MG TABLET PO PRN (21:59)
[2021-07-27] MEDS: traZODone 50 MG TABLET PO SCH (22:00)
[2021-07-28 04:04] LABS: Basophils # 0.1 K/mcL (0.0-0.2); Basophils % 0.9 %; Eosinophils # 0.2 K/mcL (0.0-0.6); Eosinophils % 2.6 %; Hematocrit 27.5 % (37.5-50.1); Hemoglobin 8.7 g/dL (12.9-16.9); Immature Granulocytes % 4.9 % (0-4); Lymphocytes # 1.3 K/mcL (0.6-4.6); Lymphocytes % 14.6 %; Mean Corpuscular HGB Conc 31.6 g/dL (31.6-35.5); Mean Corpuscular Hemoglobin 28.9 pg (28.0-33.3); Mean Corpuscular Volume 91.4 fL (83.0-100.0); Mean Platelet Volume 11.3 fL (9.4-12.4); Monocytes # 0.7 K/mcL (0.0-1.3); Monocytes % 8.3 %; Neutrophils # 6.1 K/mcL (1.6-8.9); Platelet Count 217 K/mcL (140-400); Red Blood Count 3.01 M/mcL (4.19-5.50); Red Cell Distribution Width 14.3 % (11.5-14.5); Segmented Neutrophils % 68.7 %; White Blood Count 8.8 K/mcL (4.3-11.1)
[2021-07-28 04:20] LABS: Calcium 8.7 mg/dL (8.6-10.3); Magnesium 2.3 mg/dL (1.6-2.6); Phosphorous 5.3 mg/dL (2.7-4.5); Potassium 3.9 mEq/L (3.5-5.1)
[2021-07-28] MEDS: Insulin LISPRO 300 UNITS/3 ML VIAL SUBQ SCH ×7 (04:22→17:32)
[2021-07-28] MEDS: *HR* Heparin 5,000 UNIT/ML VIAL SQ SCH ×3 (05:05→23:51)
[2021-07-28] MEDS: Albumin 25% 25gram/100mL 25 GM/100 ML IV.SOLN IVPB SCH ×2 (09:39→17:32)
[2021-07-28] MEDS: Aspirin Enteric Coated 81 MG Tablet PO SCH (09:39)
[2021-07-28] MEDS: Metoprolol XL (24 HR) Succ 50 MG TAB.ER.24H PO SCH (09:40)
[2021-07-28] MEDS: metOLazone 5 MG TABLET PO SCH ×2 (09:40→22:25)
[2021-07-28] MEDS: Gentamicin Oint 15 GM TUBE TP SCH (09:40)
[2021-07-28] MEDS: amLODIPine 5 MG TABLET PO SCH (09:40)
[2021-07-28] MEDS: Furosemide 40 MG/4 ML VIAL IVP SCH ×2 (09:40→22:26)
[2021-07-28] MEDS: allopurinoL 100 MG TABLET PO SCH (09:40)
[2021-07-28] MEDS: hydrALAZINE 25 MG TABLET PO SCH ×2 (09:43→22:25)
[2021-07-28] MEDS: Insulin DETEMIR 100 UNIT/ML X5UNITS SUBQ SCH ×2 (09:43→22:30)
[2021-07-28] MEDS: polyethylene glycoL 3350 17 GM POWD.PACK PO SCH (09:43)
[2021-07-28] MEDS ORDERED: Albumin 25% 25gram/100mL 25 GM/100 ML IV.SOLN IVPB SCH (16:00)
[2021-07-28] MEDS: traZODone 50 MG TABLET PO SCH (22:25)
[2021-07-28] MEDS: Melatonin 3 MG TABLET PO PRN (22:27)
[2021-07-29] MEDS: Albumin 25% 25gram/100mL 25 GM/100 ML IV.SOLN IVPB SCH ×3 (00:06→17:02)
[2021-07-29 01:55] LABS: Basophils # 0.1 K/mcL (0.0-0.2); Basophils % 0.5 %; Eosinophils # 0.2 K/mcL (0.0-0.6); Eosinophils % 1.5 %; Hematocrit 25.3 % (37.5-50.1); Hemoglobin 8.2 g/dL (12.9-16.9); Immature Granulocytes % 3.3 % (0-4); Lymphocytes # 1.1 K/mcL (0.6-4.6); Lymphocytes % 10.5 %; Mean Corpuscular HGB Conc 32.4 g/dL (31.6-35.5); Mean Corpuscular Hemoglobin 29.8 pg (28.0-33.3); Mean Platelet Volume 11.4 fL (9.4-12.4); Monocytes # 0.7 K/mcL (0.0-1.3); Monocytes % 6.9 %; Neutrophils # 7.7 K/mcL (1.6-8.9); Nucleated Red Blood Cells 0.2 /100 WBC (0); Platelet Count 214 K/mcL (140-400); Red Blood Count 2.75 M/mcL (4.19-5.50); Red Cell Distribution Width 14.4 % (11.5-14.5); Segmented Neutrophils % 77.3 %
[2021-07-29 02:12] LABS: Calcium 8.7 mg/dL (8.6-10.3); Magnesium 2.3 mg/dL (1.6-2.6); Phosphorous 5.5 mg/dL (2.7-4.5); Potassium 3.9 mEq/L (3.5-5.1)
[2021-07-29] MEDS: *HR* Heparin 5,000 UNIT/ML VIAL SQ SCH ×3 (05:47→22:30)
[2021-07-29] MEDS: Insulin LISPRO 300 UNITS/3 ML VIAL SUBQ SCH ×6 (09:29→17:03)
[2021-07-29] MEDS: Aspirin Enteric Coated 81 MG Tablet PO SCH (09:30)
[2021-07-29] MEDS: allopurinoL 100 MG TABLET PO SCH (09:30)
[2021-07-29] MEDS: amLODIPine 5 MG TABLET PO SCH (09:30)
[2021-07-29] MEDS: Furosemide 40 MG/4 ML VIAL IVP SCH ×2 (09:31→22:18)
[2021-07-29] MEDS: hydrALAZINE 25 MG TABLET PO SCH ×2 (09:31→22:16)
[2021-07-29] MEDS: Metoprolol XL (24 HR) Succ 50 MG TAB.ER.24H PO SCH (09:31)
[2021-07-29] MEDS: polyethylene glycoL 3350 17 GM POWD.PACK PO SCH (09:31)
[2021-07-29] MEDS: Gentamicin Oint 15 GM TUBE TP SCH (09:32)
[2021-07-29] MEDS: Insulin DETEMIR 100 UNIT/ML X5UNITS SUBQ SCH ×2 (09:33→22:31)
[2021-07-29] MEDS: metOLazone 5 MG TABLET PO SCH (09:33)
[2021-07-29] MEDS: Melatonin 3 MG TABLET PO PRN (22:16)
[2021-07-29] MEDS: traZODone 50 MG TABLET PO SCH (22:17)
[2021-07-30] MEDS: Albumin 25% 25gram/100mL 25 GM/100 ML IV.SOLN IVPB SCH ×3 (00:21→16:51)
[2021-07-30] MEDS: *HR* Heparin 5,000 UNIT/ML VIAL SQ SCH ×2 (06:42→16:47)
[2021-07-30] MEDS: Furosemide 40 MG/4 ML VIAL IVP SCH (10:42)
[2021-07-30 10:43] LABS: Basophils % 0.3 %; Eosinophils # 0.1 K/mcL (0.0-0.6); Eosinophils % 0.7 %; Hematocrit 25.5 % (37.5-50.1); Hemoglobin 8.2 g/dL (12.9-16.9); Immature Granulocytes % 1.4 % (0-4); Lymphocytes # 0.8 K/mcL (0.6-4.6); Lymphocytes % 6.6 %; Mean Corpuscular HGB Conc 32.2 g/dL (31.6-35.5); Mean Corpuscular Hemoglobin 29.5 pg (28.0-33.3); Mean Corpuscular Volume 91.7 fL (83.0-100.0); Mean Platelet Volume 11.5 fL (9.4-12.4); Monocytes # 0.7 K/mcL (0.0-1.3); Monocytes % 5.5 %; Neutrophils # 10.2 K/mcL (1.6-8.9); Platelet Count 213 K/mcL (140-400); Red Blood Count 2.78 M/mcL (4.19-5.50); Red Cell Distribution Width 14.4 % (11.5-14.5); Segmented Neutrophils % 85.5 %; White Blood Count 11.9 K/mcL (4.3-11.1)
[2021-07-30] MEDS: Insulin LISPRO 300 UNITS/3 ML VIAL SUBQ SCH ×6 (10:44→18:04)
[2021-07-30] MEDS: Aspirin Enteric Coated 81 MG Tablet PO SCH (10:44)
[2021-07-30] MEDS: polyethylene glycoL 3350 17 GM POWD.PACK PO SCH (10:45)
[2021-07-30] MEDS: allopurinoL 100 MG TABLET PO SCH (10:45)
[2021-07-30] MEDS: Gentamicin Oint 15 GM TUBE TP SCH (10:45)
[2021-07-30] MEDS: amLODIPine 5 MG TABLET PO SCH (10:45)
[2021-07-30] MEDS: Metoprolol XL (24 HR) Succ 50 MG TAB.ER.24H PO SCH (10:45)
[2021-07-30] MEDS: metOLazone 5 MG TABLET PO SCH (10:45)
[2021-07-30] MEDS: hydrALAZINE 25 MG TABLET PO SCH ×2 (10:45→23:07)
[2021-07-30] MEDS: Insulin DETEMIR 100 UNIT/ML X5UNITS SUBQ SCH ×2 (10:57→23:46)
[2021-07-30 11:13] LABS: Magnesium 2.3 mg/dL (1.6-2.6); Phosphorous 4.4 mg/dL (2.7-4.5); Potassium 3.9 mEq/L (3.5-5.1)
[2021-07-30] MEDS ORDERED: *HR* Heparin 5,000 UNIT/ML VIAL IVP PRN ×2 (14:20)
[2021-07-30] MEDS ORDERED: *HR* Heparin 5,000 UNIT/ML VIAL IVP ONE (14:20)
[2021-07-30] MEDS ORDERED: Furosemide 40 MG/4 ML VIAL IVP ONE ×2 (14:21→16:42)
[2021-07-30] MEDS ORDERED: Perflutren Lipid Microsphere 1.3 ML in 0.9 % Sodium Chloride 8.7 ML IVP PRN (14:21)
[2021-07-30] MEDS ORDERED: Heparin 25,000 UNIT/250 ML 25,000 UNIT/250 ML IV.SOLN IVC SCH (14:30)
[2021-07-30] MEDS ORDERED: *HR* LORazepam 2 MG/ML VIAL IVP ONE (15:26)
[2021-07-30 16:14] LABS: Prothrombin Time 11.3 Seconds (9.4-12.1)
[2021-07-30 16:16] LABS: Heparin anti-factor XA UFH < 0.04 IU/mL (0.30-0.70)
[2021-07-30 17:31] LABS: ABG Base Excess 0 mEq/L (-2 to 3); ABG HCO3 27 mEq/L (21-27); ABG Oxygen Saturation 61 % (95-98); ABG PCO2 50 mmHg (35-45); ABG PH 7.33 pH Units (7.32-7.45); ABG PO2 35 mmHg (85-104); ABG TCO2 28 mEq/L (20-26); Blood Gas Modality NIV
[2021-07-30] MEDS: Furosemide 240 MG in 0.9 % Sodium Chloride 96 ML IVC SCH (18:30)
[2021-07-30 20:37] LABS: Hematocrit 25.5 % (37.5-50.1); Hemoglobin 8.2 g/dL (12.9-16.9); Mean Corpuscular HGB Conc 32.2 g/dL (31.6-35.5); Mean Corpuscular Hemoglobin 29.4 pg (28.0-33.3); Mean Corpuscular Volume 91.4 fL (83.0-100.0); Mean Platelet Volume 11.1 fL (9.4-12.4); Platelet Count 218 K/mcL (140-400); Red Blood Count 2.79 M/mcL (4.19-5.50); Red Cell Distribution Width 14.6 % (11.5-14.5); White Blood Count 13.3 K/mcL (4.3-11.1)
[2021-07-30 21:05] LABS: Bilirubin,Urine Negative (Negative); Blood,Urine Large (Negative); Color,Urine Light-Brown (Yellow); Glucose,Urine (UA) Normal (Normal); Ketones,Urine Negative (Negative); Leukocyte Esterase,Urine Negative (Negative); Nitrite,Urine Negative (Negative); Protein,Urine >=300 mg/dL (Neg-Trace); Specific Gravity,Urine 1.012 (1.010-1.025); Urobilinogen,Urine Normal (Normal)
[2021-07-30 21:09] LABS: Clarity,Urine Hazy (Clear)
[2021-07-30 21:56] LABS: Estimated Average Glucose 243 mg/dl; Hemoglobin A1C 10.1 %
[2021-07-30] MEDS: traZODone 50 MG TABLET PO SCH (23:08)
[2021-07-31] MEDS: Insulin DETEMIR 100 UNIT/ML X5UNITS SUBQ SCH ×3 (02:13→21:57)
[2021-07-31 03:12] LABS: Basophils % 0.3 %; Eosinophils % 0.1 %; Hematocrit 25.3 % (37.5-50.1); Hemoglobin 8.2 g/dL (12.9-16.9); Immature Granulocytes % 1.2 % (0-4); Lymphocytes # 0.5 K/mcL (0.6-4.6); Lymphocytes % 3.6 %; Mean Corpuscular HGB Conc 32.4 g/dL (31.6-35.5); Mean Corpuscular Hemoglobin 29.8 pg (28.0-33.3); Mean Platelet Volume 11.3 fL (9.4-12.4); Monocytes # 0.4 K/mcL (0.0-1.3); Monocytes % 2.8 %; Neutrophils # 12.6 K/mcL (1.6-8.9); Platelet Count 201 K/mcL (140-400); Red Blood Count 2.75 M/mcL (4.19-5.50); Red Cell Distribution Width 14.6 % (11.5-14.5); White Blood Count 13.7 K/mcL (4.3-11.1)
[2021-07-31 03:23] LABS: Calcium 9.2 mg/dL (8.6-10.3); Magnesium 2.4 mg/dL (1.6-2.6); Phosphorous 5.1 mg/dL (2.7-4.5); Potassium 3.8 mEq/L (3.5-5.1)
[2021-07-31] MEDS: *HR* Heparin 5,000 UNIT/ML VIAL SQ SCH ×2 (09:11→19:54)
[2021-07-31] MEDS: allopurinoL 100 MG TABLET PO SCH (09:16)
[2021-07-31] MEDS: hydrALAZINE 25 MG TABLET PO SCH ×2 (09:16→21:41)
[2021-07-31] MEDS: Metoprolol XL (24 HR) Succ 50 MG TAB.ER.24H PO SCH (09:16)
[2021-07-31] MEDS: amLODIPine 5 MG TABLET PO SCH (09:16)
[2021-07-31] MEDS: metOLazone 5 MG TABLET PO SCH (09:16)
[2021-07-31] MEDS: Aspirin Enteric Coated 81 MG Tablet PO SCH (09:17)
[2021-07-31] MEDS: Insulin LISPRO 300 UNITS/3 ML VIAL SUBQ SCH ×6 (09:17→18:49)
[2021-07-31] MEDS: Gentamicin Oint 15 GM TUBE TP SCH (09:17)
[2021-07-31] MEDS: polyethylene glycoL 3350 17 GM POWD.PACK PO SCH (09:18)
[2021-07-31] MEDS: Furosemide 240 MG in 0.9 % Sodium Chloride 96 ML IVC SCH (18:40)
[2021-07-31] MEDS: traZODone 50 MG TABLET PO SCH (21:41)
[2021-08-01 04:49] LABS: Basophils % 0.3 %; Eosinophils % 0.1 %; Hemoglobin 7.9 g/dL (12.9-16.9); Immature Granulocytes % 1.3 % (0-4); Lymphocytes # 0.9 K/mcL (0.6-4.6); Lymphocytes % 6.7 %; Mean Corpuscular HGB Conc 32.9 g/dL (31.6-35.5); Mean Corpuscular Volume 91.3 fL (83.0-100.0); Mean Platelet Volume 12.1 fL (9.4-12.4); Monocytes # 0.8 K/mcL (0.0-1.3); Monocytes % 5.6 %; Neutrophils # 11.5 K/mcL (1.6-8.9); Platelet Count 231 K/mcL (140-400); Red Blood Count 2.63 M/mcL (4.19-5.50); Red Cell Distribution Width 14.6 % (11.5-14.5); White Blood Count 13.4 K/mcL (4.3-11.1)
[2021-08-01 04:56] LABS: Calcium 8.9 mg/dL (8.6-10.3); Magnesium 2.4 mg/dL (1.6-2.6); Phosphorous 5.4 mg/dL (2.7-4.5); Potassium 3.6 mEq/L (3.5-5.1)
[2021-08-01] MEDS: *HR* Heparin 5,000 UNIT/ML VIAL SQ SCH ×2 (06:15→19:31)
[2021-08-01] MEDS: hydrALAZINE 25 MG TABLET PO SCH ×2 (09:23→20:04)
[2021-08-01] MEDS: Insulin LISPRO 300 UNITS/3 ML VIAL SUBQ SCH ×6 (09:24→16:21)
[2021-08-01] MEDS: metOLazone 5 MG TABLET PO SCH (09:24)
[2021-08-01] MEDS: Aspirin Enteric Coated 81 MG Tablet PO SCH (09:24)
[2021-08-01] MEDS: amLODIPine 5 MG TABLET PO SCH (09:24)
[2021-08-01] MEDS: allopurinoL 100 MG TABLET PO SCH (09:24)
[2021-08-01] MEDS: Metoprolol XL (24 HR) Succ 50 MG TAB.ER.24H PO SCH (09:24)
[2021-08-01] MEDS: polyethylene glycoL 3350 17 GM POWD.PACK PO SCH (09:26)
[2021-08-01] MEDS: Gentamicin Oint 15 GM TUBE TP SCH (09:29)
[2021-08-01] MEDS: Insulin DETEMIR 100 UNIT/ML X5UNITS SUBQ SCH ×2 (10:14→21:01)
[2021-08-01] MEDS: Furosemide 240 MG in 0.9 % Sodium Chloride 96 ML IVC SCH (19:30)
[2021-08-01] MEDS: Acetaminophen 325 MG TABLET PO PRN (20:03)
[2021-08-02] MEDS: *HR* Heparin 5,000 UNIT/ML VIAL SQ SCH ×2 (06:33→16:37)
[2021-08-02 07:14] LABS: Basophils # 0.1 K/mcL (0.0-0.2); Basophils % 0.6 %; Eosinophils # 0.1 K/mcL (0.0-0.6); Eosinophils % 0.7 %; Hematocrit 24.5 % (37.5-50.1); Hemoglobin 8.1 g/dL (12.9-16.9); Immature Granulocytes % 1.5 % (0-4); Lymphocytes # 0.6 K/mcL (0.6-4.6); Lymphocytes % 5.7 %; Mean Corpuscular HGB Conc 33.1 g/dL (31.6-35.5); Mean Corpuscular Hemoglobin 30.3 pg (28.0-33.3); Mean Corpuscular Volume 91.8 fL (83.0-100.0); Mean Platelet Volume 11.8 fL (9.4-12.4); Monocytes # 0.7 K/mcL (0.0-1.3); Monocytes % 6.5 %; Neutrophils # 8.7 K/mcL (1.6-8.9); Platelet Count 224 K/mcL (140-400); Red Blood Count 2.67 M/mcL (4.19-5.50); Red Cell Distribution Width 14.7 % (11.5-14.5); White Blood Count 10.2 K/mcL (4.3-11.1)
[2021-08-02 07:30] LABS: Calcium 8.7 mg/dL (8.6-10.3); Magnesium 2.5 mg/dL (1.6-2.6); Phosphorous 6.2 mg/dL (2.7-4.5); Potassium 3.6 mEq/L (3.5-5.1)
[2021-08-02 07:47] LABS: Hepatitis B Surface Antibody < 3.10 mIU/mL
[2021-08-02 07:58] LABS: Hepatitis B Surface Antigen Nonreactive (Nonreactive)
[2021-08-02] MEDS: Metoprolol XL (24 HR) Succ 50 MG TAB.ER.24H PO SCH (08:09)
[2021-08-02] MEDS: allopurinoL 100 MG TABLET PO SCH (08:10)
[2021-08-02] MEDS: hydrALAZINE 25 MG TABLET PO SCH ×2 (08:10→22:09)
[2021-08-02] MEDS: amLODIPine 5 MG TABLET PO SCH (08:10)
[2021-08-02] MEDS: metOLazone 5 MG TABLET PO SCH (08:10)
[2021-08-02] MEDS: Insulin DETEMIR 100 UNIT/ML X5UNITS SUBQ SCH ×2 (08:10→22:15)
[2021-08-02] MEDS: Insulin LISPRO 300 UNITS/3 ML VIAL SUBQ SCH ×6 (08:10→16:44)
[2021-08-02] MEDS: Aspirin Enteric Coated 81 MG Tablet PO SCH (08:10)
[2021-08-02] MEDS ORDERED: 0.9 % Sodium Chloride 250 ML IVC PRN (08:19)
[2021-08-02] MEDS ORDERED: *HR* Heparin 10,000 UNIT/10 ML VIAL IV PRN ×2 (08:19)
[2021-08-02] MEDS: polyethylene glycoL 3350 17 GM POWD.PACK PO SCH (08:21)
[2021-08-02] MEDS ORDERED: 0.9 % Sodium Chloride 1,000 ML PRIME SCH (08:30)
[2021-08-02] MEDS ORDERED: Heparin 1,000 UNITS/500 mL 500 ML ONE (09:07)
[2021-08-02] MEDS ORDERED: Lidocaine/EPI 1:100k 1% 50 ML VIAL ONE (09:07)
[2021-08-02] MEDS ORDERED: *HR* Heparin 5,000 UNIT/ML VIAL ONE (09:23)
[2021-08-02] MEDS: Furosemide 240 MG in 0.9 % Sodium Chloride 96 ML IVC SCH (16:38)
[2021-08-02 16:59] LABS: Estimated Average Glucose 240 mg/dl
[2021-08-02] MEDS ORDERED: *HR* Heparin 5,000 UNIT/ML VIAL IVP PRN ×2 (18:56)
[2021-08-02 19:04] LABS: Hepatitis B Surface Antigen Nonreactive (Nonreactive)
[2021-08-02 19:33] LABS: Hepatitis B Core IgM Nonreactive (Nonreactive)
[2021-08-02 19:34] LABS: Hepatitis C Virus Antibody Nonreactive (Nonreactive)
[2021-08-02 19:35] LABS: Hepatitis A Antibody IgM Nonreactive (Nonreactive)
[2021-08-02] MEDS: Heparin 25,000 UNIT/250 ML 25,000 UNIT/250 ML IV.SOLN IVC SCH (22:12)
[2021-08-02] MEDS: Gentamicin Oint 15 GM TUBE TP SCH (22:13)
[2021-08-03 00:47] LABS: Hematocrit 23.7 % (37.5-50.1); Hemoglobin 7.8 g/dL (12.9-16.9); Mean Corpuscular HGB Conc 32.9 g/dL (31.6-35.5); Mean Corpuscular Hemoglobin 30.5 pg (28.0-33.3); Mean Corpuscular Volume 92.6 fL (83.0-100.0); Mean Platelet Volume 12.1 fL (9.4-12.4); Platelet Count 227 K/mcL (140-400); Red Blood Count 2.56 M/mcL (4.19-5.50); Red Cell Distribution Width 14.7 % (11.5-14.5); White Blood Count 10.5 K/mcL (4.3-11.1)
[2021-08-03 00:54] LABS: Prothrombin Time 11.5 Seconds (9.4-12.1)
[2021-08-03 00:56] LABS: Heparin anti-factor XA UFH 0.05 IU/mL (0.30-0.70)
[2021-08-03 01:07] LABS: Calcium 8.5 mg/dL (8.6-10.3); Potassium 3.5 mEq/L (3.5-5.1)
[2021-08-03 01:22] LABS: Troponin I 0.22 ng/mL (< 0.04)
[2021-08-03] MEDS: Insulin LISPRO 300 UNITS/3 ML VIAL SUBQ SCH ×6 (08:30→16:28)
[2021-08-03] MEDS: Gentamicin Oint 15 GM TUBE TP SCH (08:34)
[2021-08-03] MEDS: Metoprolol XL (24 HR) Succ 50 MG TAB.ER.24H PO SCH (08:35)
[2021-08-03] MEDS: Aspirin Enteric Coated 81 MG Tablet PO SCH (08:35)
[2021-08-03] MEDS: allopurinoL 100 MG TABLET PO SCH (08:35)
[2021-08-03] MEDS: hydrALAZINE 25 MG TABLET PO SCH ×2 (08:35→22:35)
[2021-08-03] MEDS: amLODIPine 5 MG TABLET PO SCH (08:35)
[2021-08-03] MEDS: polyethylene glycoL 3350 17 GM POWD.PACK PO SCH (08:36)
[2021-08-03] MEDS: metOLazone 5 MG TABLET PO SCH (08:45)
[2021-08-03] MEDS: Insulin DETEMIR 100 UNIT/ML X5UNITS SUBQ SCH ×2 (08:46→22:36)
[2021-08-03] MEDS ORDERED: 0.9 % Sodium Chloride 250 ML IVC PRN (08:52)
[2021-08-03] MEDS ORDERED: *HR* Heparin 10,000 UNIT/10 ML VIAL IV PRN (14:44)
[2021-08-03] MEDS: Furosemide 40 MG TABLET PO SCH (16:13)
[2021-08-03] MEDS: *HR* Heparin 5,000 UNIT/ML VIAL SQ SCH ×2 (16:13→22:37)
[2021-08-03] MEDS: Heparin 25,000 UNIT/250 ML 25,000 UNIT/250 ML IV.SOLN IVC SCH (16:15)
[2021-08-04] MEDS: *HR* Heparin 5,000 UNIT/ML VIAL SQ SCH ×3 (05:50→20:55)
[2021-08-04 06:29] LABS: INR 1.1; Prothrombin Time 12.2 Seconds (9.4-12.1)
[2021-08-04] MEDS: Aspirin Enteric Coated 81 MG Tablet PO SCH (10:33)
[2021-08-04] MEDS: hydrALAZINE 25 MG TABLET PO SCH ×2 (10:34→20:55)
[2021-08-04] MEDS: amLODIPine 5 MG TABLET PO SCH (10:34)
[2021-08-04] MEDS: allopurinoL 100 MG TABLET PO SCH (10:34)
[2021-08-04] MEDS: Insulin DETEMIR 100 UNIT/ML X5UNITS SUBQ SCH ×2 (10:34→20:55)
[2021-08-04] MEDS: Furosemide 40 MG TABLET PO SCH ×2 (10:34→17:59)
[2021-08-04] MEDS: Metoprolol XL (24 HR) Succ 50 MG TAB.ER.24H PO SCH (10:34)
[2021-08-04] MEDS: Insulin LISPRO 300 UNITS/3 ML VIAL SUBQ SCH ×6 (10:35→17:59)
[2021-08-04] MEDS: Gentamicin Oint 15 GM TUBE TP SCH (10:35)
[2021-08-04] MEDS: polyethylene glycoL 3350 17 GM POWD.PACK PO SCH (10:36)
[2021-08-04 14:06] LABS: Hematocrit 26.6 % (37.5-50.1); Hemoglobin 8.4 g/dL (12.9-16.9); Mean Corpuscular HGB Conc 31.6 g/dL (31.6-35.5); Mean Corpuscular Hemoglobin 29.6 pg (28.0-33.3); Mean Corpuscular Volume 93.7 fL (83.0-100.0); Mean Platelet Volume 12.3 fL (9.4-12.4); Platelet Count 277 K/mcL (140-400); Red Blood Count 2.84 M/mcL (4.19-5.50); Red Cell Distribution Width 14.7 % (11.5-14.5); White Blood Count 10.6 K/mcL (4.3-11.1)
[2021-08-04 14:21] LABS: Calcium 8.6 mg/dL (8.6-10.3); Potassium 3.4 mEq/L (3.5-5.1)
[2021-08-05] MEDS: *HR* Heparin 5,000 UNIT/ML VIAL SQ SCH ×3 (04:42→20:42)
[2021-08-05 05:05] LABS: Hematocrit 25.8 % (37.5-50.1); Hemoglobin 8.6 g/dL (12.9-16.9); Mean Corpuscular HGB Conc 33.3 g/dL (31.6-35.5); Mean Corpuscular Hemoglobin 30.6 pg (28.0-33.3); Mean Corpuscular Volume 91.8 fL (83.0-100.0); Mean Platelet Volume 11.5 fL (9.4-12.4); Platelet Count 271 K/mcL (140-400); Red Blood Count 2.81 M/mcL (4.19-5.50); Red Cell Distribution Width 14.6 % (11.5-14.5)
[2021-08-05 05:15] LABS: Prothrombin Time 11.4 Seconds (9.4-12.1)
[2021-08-05 05:25] LABS: Calcium 8.8 mg/dL (8.6-10.3); Potassium 3.4 mEq/L (3.5-5.1)
[2021-08-05] MEDS: hydrALAZINE 25 MG TABLET PO SCH ×2 (10:10→20:41)
[2021-08-05] MEDS: allopurinoL 100 MG TABLET PO SCH (10:10)
[2021-08-05] MEDS: amLODIPine 5 MG TABLET PO SCH (10:10)
[2021-08-05] MEDS: Aspirin Enteric Coated 81 MG Tablet PO SCH (10:10)
[2021-08-05] MEDS: Metoprolol XL (24 HR) Succ 50 MG TAB.ER.24H PO SCH (10:11)
[2021-08-05] MEDS: polyethylene glycoL 3350 17 GM POWD.PACK PO SCH (10:12)
[2021-08-05] MEDS: Gentamicin Oint 15 GM TUBE TP SCH (10:14)
[2021-08-05] MEDS: Furosemide 40 MG TABLET PO SCH ×2 (10:15→17:26)
[2021-08-05] MEDS: Insulin DETEMIR 100 UNIT/ML X5UNITS SUBQ SCH ×2 (10:17→20:41)
[2021-08-05] MEDS: Insulin LISPRO 300 UNITS/3 ML VIAL SUBQ SCH ×6 (10:18→17:28)
[2021-08-06 04:41] LABS: Hematocrit 25.8 % (37.5-50.1); Hemoglobin 8.5 g/dL (12.9-16.9); Mean Corpuscular HGB Conc 32.9 g/dL (31.6-35.5); Mean Corpuscular Hemoglobin 30.1 pg (28.0-33.3); Mean Corpuscular Volume 91.5 fL (83.0-100.0); Platelet Count 294 K/mcL (140-400); Red Blood Count 2.82 M/mcL (4.19-5.50); Red Cell Distribution Width 14.7 % (11.5-14.5); White Blood Count 10.9 K/mcL (4.3-11.1)
[2021-08-06 04:48] LABS: Prothrombin Time 11.2 Seconds (9.4-12.1)
[2021-08-06 04:59] LABS: Potassium 3.3 mEq/L (3.5-5.1)
[2021-08-06] MEDS ORDERED: 0.9 % Sodium Chloride 250 ML IVC PRN (07:48)
[2021-08-06] MEDS: Furosemide 40 MG TABLET PO SCH ×2 (09:35→16:35)
[2021-08-06] MEDS: amLODIPine 5 MG TABLET PO SCH (09:35)
[2021-08-06] MEDS: Aspirin Enteric Coated 81 MG Tablet PO SCH (09:35)
[2021-08-06] MEDS: allopurinoL 100 MG TABLET PO SCH (09:35)
[2021-08-06] MEDS: hydrALAZINE 25 MG TABLET PO SCH ×2 (09:35→22:01)
[2021-08-06] MEDS: Insulin LISPRO 300 UNITS/3 ML VIAL SUBQ SCH ×6 (09:36→16:36)
[2021-08-06] MEDS: Insulin DETEMIR 100 UNIT/ML X5UNITS SUBQ SCH ×2 (09:36→22:03)
[2021-08-06] MEDS: polyethylene glycoL 3350 17 GM POWD.PACK PO SCH (09:57)
[2021-08-06] MEDS ORDERED: *HR* Heparin 10,000 UNIT/10 ML VIAL IV PRN (13:44)
[2021-08-06] MEDS: Gentamicin Oint 15 GM TUBE TP SCH (22:01)
[2021-08-07 04:35] LABS: Mean Corpuscular HGB Conc 32.1 g/dL (31.6-35.5); Mean Corpuscular Hemoglobin 30.1 pg (28.0-33.3); Mean Corpuscular Volume 93.6 fL (83.0-100.0); Mean Platelet Volume 11.5 fL (9.4-12.4); Platelet Count 295 K/mcL (140-400); Red Blood Count 2.99 M/mcL (4.19-5.50); Red Cell Distribution Width 15.1 % (11.5-14.5); White Blood Count 10.4 K/mcL (4.3-11.1)
[2021-08-07 04:50] LABS: Prothrombin Time 11.1 Seconds (9.4-12.1)
[2021-08-07 07:14] VITALS: TEMP 98
[2021-08-07] MEDS ORDERED: Spironolactone 12.5 MG TABLET PO SCH (09:00)
[2021-08-07] MEDS ORDERED: Metoprolol XL (24 HR) Succ 50 MG TAB.ER.24H PO SCH ×2 (09:00)
[2021-08-07] MEDS: Aspirin Enteric Coated 81 MG Tablet PO SCH (09:06)
[2021-08-07] MEDS: amLODIPine 5 MG TABLET PO SCH (09:06)
[2021-08-07] MEDS: polyethylene glycoL 3350 17 GM POWD.PACK PO SCH (09:06)
[2021-08-07] MEDS: Furosemide 40 MG TABLET PO SCH (09:06)
[2021-08-07] MEDS: hydrALAZINE 25 MG TABLET PO SCH (09:06)
[2021-08-07] MEDS: allopurinoL 100 MG TABLET PO SCH (09:06)
[2021-08-07] MEDS: Insulin LISPRO 300 UNITS/3 ML VIAL SUBQ SCH ×2 (09:08)
[2021-08-07] MEDS: Gentamicin Oint 15 GM TUBE TP SCH (09:09)
[2021-08-07] MEDS: Insulin DETEMIR 100 UNIT/ML X5UNITS SUBQ SCH (09:17)
[2021-08-07 11:59] VITALS: BP 166/74; PULSE 94; O2SAT 94
== END 2021-08-07 12:42 | disposition home or self-care (01) | DRG 280 ==
LOC: 3NENU 10:59 → EMEROOARM 10:59 → SUATTDRO 15:14 → 3NENU 16:21 → SUATTDRO 07-21 11:40
PROVIDERS: ADMIT Hospitalist; ATTEND Family Medicine
PROC: IRPERMA (2021-08-02 12:00)

== ENCOUNTER 2021-10-03 20:04 | Inpatient (IN) ==
[2021-10-03] MEDS ORDERED: Naloxone 0.4 MG/ML INJ IVP PRN (22:04)
[2021-10-03] MEDS ORDERED: Ondansetron 4 MG/2 ML VIAL IVP PRN (22:04)
[2021-10-03] MEDS ORDERED: D5% in Water 1,000 ML IVC PRN (22:32)
[2021-10-03] MEDS ORDERED: *HR* Dextrose 50 % in Water (Syg) 50 ML SYRINGE IVP PRN (22:32)
[2021-10-03] MEDS ORDERED: Dextrose Gel 15 GM/37.5 ML TUBE PO PRN ×2 (22:32)
[2021-10-03] MEDS ORDERED: Insulin DETEMIR 100 UNIT/ML X5UNITS SUBQ SCH (22:45)
[2021-10-04] MEDS ORDERED: Insulin LISPRO 300 UNITS/3 ML VIAL SUBQ SCH
[2021-10-04] MEDS: Insulin LISPRO 300 UNITS/3 ML VIAL SUBQ SCH ×6 (04:19→23:58)
[2021-10-04 07:03] LABS: Hematocrit 34.7 % (37.5-50.1); Hemoglobin 11.3 g/dL (12.9-16.9); Mean Corpuscular HGB Conc 32.6 g/dL (31.6-35.5); Mean Corpuscular Hemoglobin 29.7 pg (28.0-33.3); Mean Corpuscular Volume 91.1 fL (83.0-100.0); Mean Platelet Volume 12.2 fL (9.4-12.4); Platelet Count 208 K/mcL (140-400); Red Blood Count 3.81 M/mcL (4.19-5.50); Red Cell Distribution Width 14.2 % (11.5-14.5); White Blood Count 10.4 K/mcL (4.3-11.1)
[2021-10-04 07:32] LABS: Troponin I 0.15 ng/mL (< 0.04)
[2021-10-04] MEDS ORDERED: 0.9 % Sodium Chloride 250 ML IVC PRN (07:32)
[2021-10-04 08:59] LABS: Calcium 9.4 mg/dL (8.6-10.3); Potassium 3.8 mEq/L (3.5-5.1)
[2021-10-04] MEDS ORDERED: Furosemide 40 MG/4 ML VIAL IVP SCH (09:00)
[2021-10-04] MEDS: Aspirin Enteric Coated 81 MG Tablet PO SCH (09:09)
[2021-10-04] MEDS: allopurinoL 100 MG TABLET PO SCH (09:09)
[2021-10-04] MEDS: Metoprolol XL (24 HR) Succ 50 MG TAB.ER.24H PO SCH (09:09)
[2021-10-04 09:14] LABS: Hepatitis B Surface Antibody < 3.10 mIU/mL
[2021-10-04 09:25] LABS: Hepatitis B Surface Antigen Nonreactive (Nonreactive)
[2021-10-04] MEDS: hydrALAZINE 25 MG TABLET PO SCH ×2 (09:27→21:03)
[2021-10-04] MEDS: Furosemide 40 MG/4 ML VIAL IVP SCH ×2 (09:27→16:48)
[2021-10-04] MEDS: Insulin DETEMIR 100 UNIT/ML X5UNITS SUBQ SCH ×2 (09:28→21:03)
[2021-10-04 09:47] LABS: Procalcitonin 0.54 ng/mL (0.00-0.15)
[2021-10-04] MEDS: *HR* Heparin 5,000 UNIT/ML VIAL SQ SCH (21:04)
[2021-10-05 03:14] LABS: Basophils # 0.1 K/mcL (0.0-0.2); Basophils % 0.5 %; Eosinophils # 0.2 K/mcL (0.0-0.6); Eosinophils % 2.3 %; Hematocrit 33.7 % (37.5-50.1); Hemoglobin 10.9 g/dL (12.9-16.9); Immature Granulocytes % 0.7 % (0-4); Lymphocytes # 1.3 K/mcL (0.6-4.6); Lymphocytes % 13.8 %; Mean Corpuscular HGB Conc 32.3 g/dL (31.6-35.5); Mean Corpuscular Hemoglobin 29.9 pg (28.0-33.3); Mean Corpuscular Volume 92.3 fL (83.0-100.0); Mean Platelet Volume 11.6 fL (9.4-12.4); Monocytes # 0.9 K/mcL (0.0-1.3); Monocytes % 8.9 %; Neutrophils # 7.2 K/mcL (1.6-8.9); Platelet Count 193 K/mcL (140-400); Red Blood Count 3.65 M/mcL (4.19-5.50); Red Cell Distribution Width 14.4 % (11.5-14.5); Segmented Neutrophils % 73.8 %; White Blood Count 9.7 K/mcL (4.3-11.1)
[2021-10-05 03:35] LABS: Calcium 8.8 mg/dL (8.6-10.3); Potassium 3.8 mEq/L (3.5-5.1)
[2021-10-05] MEDS: Insulin LISPRO 300 UNITS/3 ML VIAL SUBQ SCH ×5 (04:31→20:49)
[2021-10-05] MEDS: *HR* Heparin 5,000 UNIT/ML VIAL SQ SCH ×3 (05:21→20:46)
[2021-10-05] MEDS ORDERED: 0.9 % Sodium Chloride 250 ML IVC PRN (07:23)
[2021-10-05] MEDS ORDERED: 0.9 % Sodium Chloride 1,000 ML PRIME SCH (07:30)
[2021-10-05] MEDS: Insulin DETEMIR 100 UNIT/ML X5UNITS SUBQ SCH ×2 (08:59→20:49)
[2021-10-05] MEDS: allopurinoL 100 MG TABLET PO SCH (08:59)
[2021-10-05] MEDS ORDERED: *HR* Heparin 10,000 UNIT/10 ML VIAL IV PRN (10:17)
[2021-10-05] MEDS: hydrALAZINE 25 MG TABLET PO SCH ×2 (11:45→20:45)
[2021-10-05] MEDS: Furosemide 40 MG/4 ML VIAL IVP SCH ×2 (11:45→16:48)
[2021-10-05] MEDS: Metoprolol XL (24 HR) Succ 50 MG TAB.ER.24H PO SCH (11:45)
[2021-10-05] MEDS: Aspirin Enteric Coated 81 MG Tablet PO SCH (11:45)
[2021-10-06] MEDS: Insulin LISPRO 300 UNITS/3 ML VIAL SUBQ SCH ×3 (01:03→07:34)
[2021-10-06] MEDS: *HR* Heparin 5,000 UNIT/ML VIAL SQ SCH (05:44)
[2021-10-06 06:55] VITALS: BP 153/85; PULSE 94; TEMP 97.7; O2SAT 95
[2021-10-06] MEDS: Insulin DETEMIR 100 UNIT/ML X5UNITS SUBQ SCH (07:34)
[2021-10-06] MEDS: Furosemide 40 MG/4 ML VIAL IVP SCH (08:56)
[2021-10-06] MEDS: Metoprolol XL (24 HR) Succ 50 MG TAB.ER.24H PO SCH (08:57)
[2021-10-06] MEDS: Aspirin Enteric Coated 81 MG Tablet PO SCH (08:57)
[2021-10-06] MEDS: hydrALAZINE 25 MG TABLET PO SCH (08:57)
[2021-10-06] MEDS: allopurinoL 100 MG TABLET PO SCH (08:57)
[2021-10-07] MEDS ORDERED: Ergocalciferol (VIT D2) 50,000 UNIT (1.25MG) CAP PO SCH (08:06)
== END 2021-10-06 11:29 | disposition home or self-care (01) | DRG 291 ==
LOC: 2ANU → SUATTDRO 21:29
PROVIDERS: ADMIT Internal Medicine; ATTEND Internal Medicine